=== PATIENT | male | born 1955 | race Caucasian/White ===

== ENCOUNTER 2017-03-20 12:48 | Inpatient (IN) | payer BC ==
[~2017-03-20] VITALS: Ht 177.8 cm; Wt 126.3 kg
[2017-03-20] MEDS ORDERED: WARF2TAB PO (13:24)
[2017-03-20] MEDS ORDERED: OMEP20TA40 PO (13:24)
[2017-03-20] MEDS ORDERED: GLYB5TAB3 PO (13:24)
[2017-03-20] MEDS ORDERED: WARF5TAB90 PO (13:24)
[2017-03-20] MEDS ORDERED: LOSA1TAB38 PO (13:24)
[2017-03-20] MEDS ORDERED: FRS/40 PO (13:24)
[2017-03-20] MEDS ORDERED: CLIN300C2 PO (13:24)
[2017-03-20] MEDS ORDERED: LISI-461 PO (13:24)
[2017-03-20] MEDS ORDERED: ATEN50TA8 PO (13:24)
[2017-03-20] MEDS ORDERED: NAPR1TAB9 PO (13:24)
--- NOTE | 2017-03-20 13:43 | EMERGENCY ROOM VISIT NOTE ---
History Report prepared by Martir: Ninoska Ordonez Under the Supervision of: Dr. Fabian Kelly M.D. First contact with patient: 13:33 Chief Complaint: OTHER COMPLAINT Stated Complaint: CELLULITIS, IMPAIRED RENAL FUNCTION History of Present Illness The patient is a 61 year old male who presents to the Emergency Room with complaints of abnormal lab work. He reports he was working out of state in [place] recently when he developed cellulitis in his left lower leg. He was placed on IV Clindamycin, which provided good relief. While the patient was at the ED in [place], his lab work showed "renal impairment". He states as far as he knew before the lab work, his kidney function had been normal. He denies any recent chest pain or increased shortness of breath. He admits to a history of "7 PE's in 2009" but denies any personal history of heart failure. He takes daily Coumadin for the history of clots. 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 The patient denies any recent fevers, chills, cough, congestion, nausea, vomiting or urinary symptoms. 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 A total of ten systems were reviewed and were otherwise negative. 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 (4) Pulmonary embolism Social History Smoking Status: Never Smoker Alcohol Use: occasionally Drug Use: none Marital Status: Housing Status: lives with family Occupation Status: employed Current/Historical Medications Scheduled Atenolol (Tenormin), 50 MG PO BID Clindamycin Hcl (Cleocin), 300 MG PO TID Furosemide (Lasix), 40 MG PO DAILY Glyburide-Metformin (Glucovance 5/500 Mg), 2 TAB PO BIDM Lisinopril (Zestril), 10 MG PO DAILY Losartan Potassium (Cozaar), 100 MG PO DAILY Omeprazole (Cvs Omeprazole), 20 MG PO DAILY Warfarin Sodium (Coumadin), 5 MG PO Q2D Warfarin Sodium (Coumadin), 2 MG PO Q2D Scheduled PRN Naproxen (Aleve), 220 MG PO DAILY PRN for LEG PAIN Allergies Coded Allergies: No Known Allergies (Unverified , 03/20/17) Physical Exam Vital Signs Date Time Temp Pulse Resp B/P (MAP) Pulse Ox O2 Delivery O2 Flow Rate FiO2 03/20/17 16:44 64 18 147/88 97 Room Air 03/20/17 14:28 66 18 124/54 96 Room Air 03/20/17 13:47 64 03/20/17 13:44 98 Room Air 03/20/17 13:07 37.0 65 20 182/84 96 Room Air Physical Exam GENERAL: Awake, alert, well-appearing, in no distress HENT: Normocephalic, atraumatic. Oropharynx unremarkable. Dry mucous membranes. EYES: Normal conjunctiva. Sclera non-icteric. NECK: Supple. No nuchal rigidity. FROM. No JVD. RESPIRATORY: Clear to auscultation. CARDIAC: Regular rate, normal rhythm. Extremities warm and well perfused. Pulses equal. ABDOMEN: Obese, soft, non-distended. No tenderness to palpation. No rebound or guarding. No masses. RECTAL: Deferred. MUSCULOSKELETAL: Chest examination reveals no tenderness. The back is symmetrical on inspection without obvious abnormality. There is no CVA tenderness to palpation. No joint edema. LOWER EXTREMITIES: Right lower extremity has 2+ pitting edema with erythema and warmth, half cm anterior distal ulceration, no crepitus, no areas of fluctuance or crepitus. Calves are equal size bilaterally and non-tender. 1+ edema to left lower extremity. No discoloration. NEURO: Normal sensorium. No sensory or motor deficits noted. SKIN: No rash or jaundice noted. Medical Decision & Procedures ER Provider Diagnostic Interpretation: Radiology results as stated below per my review and radiologist interpretation: CHEST ONE VIEW PORTABLE CLINICAL HISTORY: 61 years-old Male presenting with sob. TECHNIQUE: Portable upright AP view of the chest was obtained. COMPARISON: None. FINDINGS: Mild prominence of the cardiac silhouette, which may be due to portable AP technique. Lungs and pleural spaces clear. Osseous structures normal. Upper abdomen normal. IMPRESSION: 1. Possible cardiomegaly. No other evidence of acute cardiopulmonary disease. Electronically signed by: Orlando Mahan M.D. 03/20/2017 4:17 PM R TIBIA/FIBULA 2 VIEWS ROUTINE CLINICAL HISTORY: 61 years-old Male presenting with pain swelling - r/o osseous involvement. TECHNIQUE: Frontal and lateral views of the right lower leg were obtained. COMPARISON: None. FINDINGS: Knee joint and ankle mortise grossly congruent. No acute fracture or malalignment. Degenerative change noted at the knee and ankle. Chondrocalcinosis suggested at the knee joint given calcification in the lateral compartment. No gross evidence of periosteal reaction or osseous erosion. Diffuse subcutaneous infiltration and skin thickening. Atherosclerosis. IMPRESSION: No acute osseous injury of the right lower leg. Degenerative changes at the knee and ankle. Electronically signed by: Orlando Mahan M.D. 03/20/2017 4:16 PM Laboratory Results 03/20/17 13:50 Red Blood Count 4.10, Mean Corpuscular Volume 85.9, Mean Corpuscular Hemoglobin 28.8, Mean Corpuscular Hemoglobin Concent 33.5, Mean Platelet Volume 9.6, Neutrophils (%) (Auto) 64.8, Lymphocytes (%) (Auto) 25.2, Monocytes (%) (Auto) 6.9, Eosinophils (%) (Auto) 2.0, Basophils (%) (Auto) 0.9, Neutrophils # (Auto) 4.12, Lymphocytes # (Auto) 1.60, Monocytes # (Auto) 0.44, Eosinophils # (Auto) 0.13, Basophils # (Auto) 0.06 03/20/17 13:50 Test 03/20/17 13:30 03/20/17 13:50 03/20/17 13:55 Prothrombin Time 26.8 SECONDS (9.0-12.0) Prothromb Time International Ratio 2.4 (0.9-1.1) White Blood Count 6.36 K/uL (4.8-10.8) Red Blood Count 4.10 M/uL (4.7-6.1) Hemoglobin 11.8 g/dL (14.0-18.0) Hematocrit 35.2 % (42-52) Mean Corpuscular Volume 85.9 fL (80-100) Mean Corpuscular Hemoglobin 28.8 pg (25-34) Mean Corpuscular Hemoglobin Concent 33.5 g/dl (32-36) Platelet Count 296 K/uL (130-400) Mean Platelet Volume 9.6 fL (7.4-10.4) Neutrophils (%) (Auto) 64.8 % Lymphocytes (%) (Auto) 25.2 % Monocytes (%) (Auto) 6.9 % Eosinophils (%) (Auto) 2.0 % Basophils (%) (Auto) 0.9 % Neutrophils # (Auto) 4.12 K/uL (1.4-6.5) Lymphocytes # (Auto) 1.60 K/uL (1.2-3.4) Monocytes # (Auto) 0.44 K/uL (0.11-0.59) Eosinophils # (Auto) 0.13 K/uL (0-0.5) Basophils # (Auto) 0.06 K/uL (0-0.2) RDW Standard Deviation 40.2 fL (36.4-46.3) RDW Coefficient of Variation 12.8 % (11.5-14.5) Immature Granulocyte % (Auto) 0.2 % Immature Granulocyte # (Auto) 0.01 K/uL (0.00-0.02) Erythrocyte Sedimentation Rate 81 mm/hr (0-14) Anion Gap 8.0 mmol/L (3-11) Est Creatinine Clear Calc Drug Dose 42.6 ml/min Estimated GFR () 32.3 Estimated GFR (Non- 27.9 BUN/Creatinine Ratio 19.9 (10-20) Calcium Level 9.3 mg/dl (8.5-10.1) Troponin I < 0.015 ng/ml (0-0.045) C-Reactive Protein 3.02 mg/dl (0-0.29) Pro-B-Type Natriuretic Peptide 1618 pg/ml (0-900) Lactic Acid Level 1.0 mmol/L (0.4-2.0) Laboratory results reviewed by me Medications Administered Medications (Trade) Dose Ordered Sig/Brynn Route Start Time Stop Time Status Last Admin Dose Admin Vancomycin HCl 2500 mg/Sodium Chloride 550 ml @ 200 mls/hr ONE STAT IV 03/20/17 15:04 03/20/17 17:48 DC 10/8/17 15:39 200 MLS/HR Piperacillin Sod/ Tazobactam Sod (Zosyn Iv) 3.375 gm NOW STAT IV 03/20/17 15:04 03/20/17 15:06 DC 03/20/17 15:39 3.375 GM ED Course 1334: The patient was evaluated in room A3. A complete history and physical exam was performed. 1504: Zosyn 3.375 gm IV, Vancomycin HCl 1500 mg/NSS 550 ml @ 200 mls/hr IV. 1509: I discussed the patients case with Melina Pfeiffer. The patient will be further evaluated. Medical Decision I reviewed the patient's past medical history, medications, and the nursing notes as described above. The differential diagnoses considered include cellulitis, osteomyelitis, abscess and DVT. 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 WBC within normal limits. His creatinine is 2.5 in this patient who denies any history of kidney disease, and ESR is 80 with a CRP of 5. Given this patients risk of infection will made for IV antibiotics given his worsening on oral antibiotics. X-ray negative for osseous involvement. Case was discussed with Melina Pfeiffer,who will admit the patient for further management. Medication Reconcilliation Current Medication List: was personally reviewed by me Blood Pressure Screening Patient's blood pressure: Normal blood pressure Blood pressure disposition: Did not require urgent referral Consults Time Called: 1505 Consulting Physician: Melina Pfefifer Returned Call: [phone] I discussed the patients case with Melina Pfeiffer. The patient will be further evaluated. Impression Primary Impression: Cellulitis Scribe Attestation The scribe's documentation has been prepared under my direction and personally reviewed by me in its entirety. I confirm that the note above accurately reflects all work, treatment, procedures, and medical decision making performed by me. Departure Information Dispostion Being Evaluated By Hospitalist Referrals No Doctor, Assigned (PCP) Patient Instructions [facility]
[2017-03-20 14:14] LABS: BASO % 0.9 %; BASO ABS # 0.06 K/uL (0-0.2); COMPLETE YES; HEMATOCRIT 35.2 % (42-52); IG% 0.2 %; LYMPH % 25.2 %; MEAN CELL VOLUME 85.9 fL (80-100); MEAN CORPUSCULAR HEMOGLOBIN 28.8 pg (25-34); MEAN CORPUSCULAR HGB CONC 33.5 g/dl (32-36); MEAN PLATELET VOLUME 9.6 fL (7.4-10.4); MONO % 6.9 %; NEUT % 64.8 %; PLATELET COUNT 296 K/uL (130-400); WHITE BLOOD COUNT 6.36 K/uL (4.8-10.8)
[2017-03-20 14:29] LABS: BLOOD UREA NITROGEN 48 mg/dl (7-18); BUN/CREATININE RATIO 19.9 (10-20); CALCIUM 9.3 mg/dl (8.5-10.1); CARBON DIOXIDE 24 mmol/L (21-32); CHLORIDE 106 mmol/L (98-107); GLUCOSE 180 mg/dl (70-99); POTASSIUM 4.7 mmol/L (3.5-5.1); SODIUM 138 mmol/L (136-145)
[2017-03-20 14:34] LABS: C-REACTIVE PROTEIN 3.02 mg/dl (0-0.29)
[2017-03-20] MEDS ORDERED: PIPERACILLIN/TAZOBACTAM 3.375 GM/100ML D5W IV STA (15:04)
[2017-03-20] MEDS ORDERED: VANCOMYCIN INJ 2,500 MG in SODIUM CHLORIDE 0.9% 500ML 500 ML IV STA (15:04)
--- NOTE | 2017-03-20 16:17 | DIAGNOSTIC IMAGING REPORT ---
R TIBIA/FIBULA 2 VIEWS ROUTINE CLINICAL HISTORY: 61 years-old Male presenting with pain swelling - r/o osseous involvement. TECHNIQUE: Frontal and lateral views of the right lower leg were obtained. COMPARISON: None. FINDINGS: Knee joint and ankle mortise grossly congruent. No acute fracture or malalignment. Degenerative change noted at the knee and ankle. Chondrocalcinosis suggested at the knee joint given calcification in the lateral compartment. No gross evidence of periosteal reaction or osseous erosion. Diffuse subcutaneous infiltration and skin thickening. Atherosclerosis. IMPRESSION: No acute osseous injury of the right lower leg. Degenerative changes at the knee and ankle. Electronically signed by: Orlando Mahan M.D. 03/20/2017 4:16 PM Dictated Date/Time: 03/20/2017 4:14 PM
--- NOTE | 2017-03-20 16:18 | DIAGNOSTIC IMAGING REPORT ---
CHEST ONE VIEW PORTABLE CLINICAL HISTORY: 61 years-old Male presenting with sob. TECHNIQUE: Portable upright AP view of the chest was obtained. COMPARISON: None. FINDINGS: Mild prominence of the cardiac silhouette, which may be due to portable AP technique. Lungs and pleural spaces clear. Osseous structures normal. Upper abdomen normal. IMPRESSION: 1. Possible cardiomegaly. No other evidence of acute cardiopulmonary disease. Electronically signed by: Orlando Mahan M.D. 03/20/2017 4:17 PM Dictated Date/Time: 03/20/2017 4:16 PM
--- NOTE | 2017-03-20 18:49 | History and Physical ---
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 Pt said that he was in [place] about a week ago when he developed cellulitis in his right lower leg. He went to the ER in [place] and was given clindamycin 10 days course. Pt said that he is on clindamycin now. He said that the leg is silver lap machine tender but it slowly improved. Pt said that he had blood work done in the ED in [place], his lab work showed abnormal renal function with creatine 2.5. He said that he did not know that he had kidney disease. He doesn't remember his baseline creatine. He said that his last blood work by his pcp was probably more than 9 month to 12 months ago. He said that he remembers that his PCP once told him his kidney function was borderline. He admits to a history of "7 PE' s in 2009" but denies any personal history of heart failure. He takes daily Coumadin for the history of clots. 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 Past Medical/Surgical History Hx PE Guillain [place] DM type 2 Obesity Social History Smoking Status: Never Smoker Drug Use: none Marital Status: Occupational Status: employed Allergies Coded Allergies: No Known Allergies (Unverified , 03/20/17) Home Medications Scheduled Atenolol (Tenormin), 50 MG PO BID Clindamycin Hcl (Cleocin), 300 MG PO TID Furosemide (Lasix), 40 MG PO DAILY Glyburide-Metformin (Glucovance 5/500 Mg), 2 TAB PO BIDM Lisinopril (Zestril), 10 MG PO DAILY Losartan Potassium (Cozaar), 100 MG PO DAILY Omeprazole (Cvs Omeprazole), 20 MG PO DAILY Warfarin Sodium (Coumadin), 5 MG PO Q2D Warfarin Sodium (Coumadin), 2 MG PO Q2D Scheduled PRN Naproxen (Aleve), 220 MG PO DAILY PRN for LEG PAIN Review of Systems Constitutional: No fever, No chills Eyes: No worsening of vision ENT: No sore throat Respiratory: No cough, No sputum, No wheezing, No shortness of breath Cardiovascular: No chest pain, No orthopnea Abdomen: No pain, No nausea, No vomiting Musculoskeletal: No calf pain Genitourinary - Male: No hematuria, No dysuria Neurologic: No memory loss, No paralysis Psychiatric: No substance abuse Endocrine: No fatigue Hematologic / Lymphatic: No night sweats Integumentary: No rash, No itch Physical Exam Vital Signs Date Time Temp Pulse Resp B/P (MAP) Pulse Ox O2 Delivery O2 Flow Rate FiO2 03/20/17 18:14 66 18 148/76 97 03/20/17 17:47 63 03/20/17 16:44 64 18 147/88 97 Room Air 03/20/17 14:28 66 18 124/54 96 Room Air 03/20/17 13:47 64 03/20/17 13:44 98 Room Air 03/20/17 13:07 37.0 65 20 182/84 96 Room Air General Appearance: WD/WN, no apparent distress Head: normocephalic, atraumatic Eyes: normal inspection, PERRL, EOMI ENT: hearing grossly normal Neck: supple, no JVD Respiratory/Chest: lungs clear, normal breath sounds, no respiratory distress, no accessory muscle use Cardiovascular: regular rate, rhythm, no JVD Abdomen/GI: normal bowel sounds, non tender Back: no CVA tenderness Extremities/Musculoskelatal: no calf tenderness, + pertinent finding (Rillarissat LE erythema, swelling, warm and tenderness) Neurologic/Psych: no motor/sensory deficits, alert, oriented x 3 Skin: warm/dry, no rash Lymphatic: no adenopathy Diagnostics Laboratory Results Results Past 24 Hours Test 03/20/17 13:50 03/20/17 13:55 Range/Units White Blood Count 6.36 4.8-10.8 K/uL Red Blood Count 4.10 4.7-6.1 M/uL Hemoglobin 11.8 14.0-18.0 g/dL Hematocrit 35.2 42-52 % Mean Corpuscular Volume 85.9 80-100 fL Mean Corpuscular Hemoglobin 28.8 25-34 pg Mean Corpuscular Hemoglobin Concent 33.5 32-36 g/dl Platelet Count 296 130-400 K/uL Mean Platelet Volume 9.6 7.4-10.4 fL Neutrophils (%) (Auto) 64.8 % Lymphocytes (%) (Auto) 25.2 % Monocytes (%) (Auto) 6.9 % Eosinophils (%) (Auto) 2.0 % Basophils (%) (Auto) 0.9 % Neutrophils # (Auto) 4.12 1.4-6.5 K/uL Lymphocytes # (Auto) 1.60 1.2-3.4 K/uL Monocytes # (Auto) 0.44 0.11-0.59 K/uL Eosinophils # (Auto) 0.13 0-0.5 K/uL Basophils # (Auto) 0.06 0-0.2 K/uL RDW Standard Deviation 40.2 36.4-46.3 fL RDW Coefficient of Variation 12.8 11.5-14.5 % Immature Granulocyte % (Auto) 0.2 % Immature Granulocyte # (Auto) 0.01 0.00-0.02 K/uL Erythrocyte Sedimentation Rate 81 0-14 mm/hr Sodium Level 138 136-145 mmol/L Potassium Level 4.7 3.5-5.1 mmol/L Chloride Level 106 98-107 mmol/L Carbon Dioxide Level 24 21-32 mmol/L Anion Gap 8.0 3-11 mmol/L Blood Urea Nitrogen 48 7-18 mg/dl Creatinine 2.40 0.60-1.40 mg/dl Est Creatinine Clear Calc Drug Dose 42.6 ml/min Estimated GFR () 32.3 Estimated GFR (Non- 27.9 BUN/Creatinine Ratio 19.9 10-20 Random Glucose 180 70-99 mg/dl Calcium Level 9.3 8.5-10.1 mg/dl Troponin I < 0.015 0-0.045 ng/ml C-Reactive Protein 3.02 0-0.29 mg/dl Pro-B-Type Natriuretic Peptide 1618 0-900 pg/ml Lactic Acid Level 1.0 0.4-2.0 mmol/L Microbiology Results 03/20/17 Blood Culture, Received Pending 03/20/17 Blood Culture, Received Pending Diagnostic Radiology CHEST ONE VIEW PORTABLE CLINICAL HISTORY: 61 years-old Male presenting with sob. TECHNIQUE: Portable upright AP view of the chest was obtained. COMPARISON: None. FINDINGS: Mild prominence of the cardiac silhouette, which may be due to portable AP technique. Lungs and pleural spaces clear. Osseous structures normal. Upper abdomen normal. IMPRESSION: 1. Possible cardiomegaly. No other evidence of acute cardiopulmonary disease. Electronically signed by: Orlando Mahan M.D. 03/20/2017 4:17 PM Dictated Date/Time: 03/20/2017 4:16 PM R TIBIA/FIBULA 2 VIEWS ROUTINE CLINICAL HISTORY: 61 years-old Male presenting with pain swelling - r/o osseous involvement. TECHNIQUE: Frontal and lateral views of the right lower leg were obtained. COMPARISON: None. FINDINGS: Knee joint and ankle mortise grossly congruent. No acute fracture or malalignment. Degenerative change noted at the knee and ankle. Chondrocalcinosis suggested at the knee joint given calcification in the lateral compartment. No gross evidence of periosteal reaction or osseous erosion. Diffuse subcutaneous infiltration and skin thickening. Atherosclerosis. IMPRESSION: No acute osseous injury of the right lower leg. Degenerative changes at the knee and ankle. Electronically signed by: Orlando Mahan M.D. 03/20/2017 4:16 PM Dictated Date/Time: 03/20/2017 4:14 PM Impression Assessment and Plan Right LE Cellulitis Afebrile, No leukocytosis Elevated ESR Has been on PO clindamycin with slowly improvement Xray of the leg showed no acute osseous injury of the right lower leg. 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 Y/N: Yes Risk Level: High Given or contraindicated: Warfarin (Coumadin)
[2017-03-20] MEDS: SODIUM CHLORIDE 0.9% 1000ML 1,000 ML IV SCH (20:35)
[2017-03-20 20:50] VITALS: BP 175/75; PULSE 69
[2017-03-20] MEDS ORDERED: VANCOMYCIN INJ 1,000 MG in SODIUM CHLORIDE 0.9% 250ML 250 ML IV SCH (21:00)
[2017-03-20] MEDS ORDERED: GLUCAGON FOR INJ 1 MG VIAL SQ PRN (21:30)
[2017-03-20] MEDS ORDERED: DEXTROSE 50% 50 ML SYR IV PRN (21:30)
[2017-03-20] MEDS ORDERED: GLUCOSE 40% GEL 15 GM TUBE PO PRN (21:30)
[2017-03-20] MEDS ORDERED: GLUCOSE 10 TABS/TUBE PO PRN (21:30)
[2017-03-20 21:32] VITALS: BP 175/75; PULSE 69; TEMP 37; BMI 40.0
[2017-03-20 21:36] LABS: INR 2.4 (0.9-1.1); PROTHROMBIN TIME (PATIENT) 26.8 SECONDS (9.0-12.0)
[2017-03-20] MEDS ORDERED: PIPERACILL/TAZOBAC CONSULT ACTIVE PRN (21:45)
[2017-03-20] MEDS ORDERED: VANCOMYCIN CONSULT ACTIVE PRN (21:45)
[2017-03-20] MEDS: PIPERACILL/TAZOBAC IV 3.375 GM in DEXTROSE 5% 100ML 100 ML IV SCH (22:24)
[2017-03-20] MEDS: INSULIN ASPART 100 UNITS/ML 3 ML PEN SC SCH (22:52)
[2017-03-20] MEDS: INSULIN GLARGINE SOLOSTAR 100 UNITS/ML 3 ML PEN SC SCH (22:52)
[2017-03-21 00:12] VITALS: BP 171/84; PULSE 72; TEMP 37; O2SAT 94
[2017-03-21] MEDS ORDERED: HydrALAZINE HCL 20 MG/ML VIAL IV. PRN (05:30)
[2017-03-21] MEDS: PIPERACILL/TAZOBAC IV 3.375 GM in DEXTROSE 5% 100ML 100 ML IV SCH (05:39)
[2017-03-21] MEDS: SODIUM CHLORIDE 0.9% 1000ML 1,000 ML IV SCH ×2 (05:40→19:51)
[2017-03-21 07:14] LABS: HEMATOCRIT 33.2 % (42-52); MEAN CORPUSCULAR HGB CONC 33.7 g/dl (32-36); MEAN PLATELET VOLUME 9.7 fL (7.4-10.4); PLATELET COUNT 267 K/uL (130-400); RED BLOOD COUNT 3.86 M/uL (4.7-6.1); WHITE BLOOD COUNT 5.56 K/uL (4.8-10.8)
[2017-03-21 07:22] LABS: PROTHROMBIN TIME (PATIENT) 21.9 SECONDS (9.0-12.0)
[2017-03-21 07:25] VITALS: BP 163/84; PULSE 65; TEMP 36.8; O2SAT 95
[2017-03-21 07:41] LABS: BUN/CREATININE RATIO 18.6 (10-20); CALCIUM 9.2 mg/dl (8.5-10.1); CREATININE 2.3 mg/dl (0.60-1.40); POTASSIUM 4.7 mmol/L (3.5-5.1)
[2017-03-21] MEDS: PANTOprazole SOD 40 MG TAB PO SCH (08:14)
[2017-03-21] MEDS: INSULIN GLARGINE SOLOSTAR 100 UNITS/ML 3 ML PEN SC SCH ×3 (08:15→20:47)
[2017-03-21] MEDS: INSULIN ASPART 100 UNITS/ML 3 ML PEN SC SCH ×4 (08:16→20:44)
--- NOTE | 2017-03-21 09:52 | Pharmacy Progress Note ---
Pharmacy Abx Dose Short Note Date of Service Mar 21, 2017. Assessment & Plan Assessment * 61 year old male receiving VANCOMYCIN and ZOSYN IV for treatment of LLE cellulitis * Day # 2 of antimicrobial therapy * He remains afebrile, WBC is not elevated, vitals are stable (hypertension noted) * Renal fxn basically unchanged over last 24 hrs based solely upon Scr, it does not look like U.O. is being monitored * Blood Cxs and R Leg ulcer Cx are pending Plan Vancomycin * Was given 2500mg (~20mg/kg) loading dose x 1 yesterday @ 1539 * Maintenance dose: 2000mg (~15.8mg/kg) IV Q 24 hours * Goal trough level for cellulitis : 10 to 20 mcg/mL, however 15 to 20mcg/mL recommended if organism has DANIEL 1 or greater * Trough level ordered for: 03/23/17 * P'kinetic estimates: Vd 0.6L/kg (due to BMI > 35), half-life ~17 hours Zosyn * Pharmacist who received consult yesterday place patient on 3.375gm extended infusion Q 8 hours. Will increase the dose to 4.5gm extended infusion Q 8 hours due to BMI 40 and wt > 120kg Pharmacy will continue to follow and will adjust dose/frequency as necessary. Thank you.
[2017-03-21] MEDS ORDERED: VANCOMYCIN INJ 1,750 MG in SODIUM CHLORIDE 0.9% 500ML 500 ML IV SCH (11:00)
[2017-03-21] MEDS: VANCOMYCIN INJ 2,000 MG in SODIUM CHLORIDE 0.9% 500ML 500 ML IV SCH (11:34)
--- NOTE | 2017-03-21 12:08 | Clinical Documentation Query ---
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 In your clinical opinion is this patient being managed for: ( ) CKD stage 4 ( ) Not Agree ( ) Other explanation of clinical findings (Please Explain) ( ) Unable to determine (Please Define) ( ) Need to Discuss The medical record reflects the following clinical findings, treatment, and risk factors. Clinical Indicators: GABY, GFR 27.9 and 29.3, creatinine 2.4 Treatment: IV hydration, hold lasix, nephro consult, renal ultrasound Risk Factors: Obesity, GABY, HTN, DM Chronic Kidney Disease (CKD), stages 1-5. Documenting the stage of CKD will improve data integrity and will help clarify vague terms such as "renal insufficiency" or "chronic renal failure." The stages of CKD according to the [employer] are as follows: Stage I: GFR >90 Stage II: GFR 60-89 Stage III: GFR 30-59 Stage IV: GFR 15-29 Stage V: GFR <15 Please clarify and document your clinical opinion in the progress notes and discharge summary. Terms such as "probable", "suspected", "likely", "questionable", "possible", or "still to be ruled out" are acceptable. IF IN AGREEMENT, YOU MUST DOCUMENT ABOVE DIAGNOSTIC STATEMENT IN DAILY PROGRESS NOTES AND DISCHARGE SUMMARY. This document is not part of the patient's record. Thank You, Connie Yanez RN [phone]
--- NOTE | 2017-03-21 13:42 | Progress Note ---
Medicine Progress Note Date & Time of Visit: Mar 21, 2017 at 13:34. Subjective Pt was seen and examined Lying in bed with no distress Pt said that he feels fine Denies any chest pain, palpitation, dizziness and sob Objective Last 8 Hrs Date Time Temp Pulse Resp B/P (MAP) Pulse Ox O2 Delivery O2 Flow Rate FiO2 03/21/17 08:00 Room Air 03/21/17 07:25 36.8 65 16 163/84 (110) 95 Room Air Physical Exam: General- adult Head- atraumatic Eyes- PERRL, EOMI ENT- oropharynx clear Neck- supple, no JVD Lungs- clear to auscultation Heart- regular rhythm; no murmur Abdomen- normal bowel sounds, soft Extremities- +edema and erythema in R Leg Neuro- alert, oriented x 3; PERRL, EOMI Skin- warm & dry Laboratory Results: Last 24 Hours Test 03/20/17 13:50 03/20/17 13:55 03/20/17 20:34 03/21/17 06:40 White Blood Count 6.36 K/uL 5.56 K/uL Red Blood Count 4.10 M/uL 3.86 M/uL Hemoglobin 11.8 g/dL 11.2 g/dL Hematocrit 35.2 % 33.2 % Mean Corpuscular Volume 85.9 fL 86.0 fL Mean Corpuscular Hemoglobin 28.8 pg 29.0 pg Mean Corpuscular Hemoglobin Concent 33.5 g/dl 33.7 g/dl Platelet Count 296 K/uL 267 K/uL Mean Platelet Volume 9.6 fL 9.7 fL Neutrophils (%) (Auto) 64.8 % Lymphocytes (%) (Auto) 25.2 % Monocytes (%) (Auto) 6.9 % Eosinophils (%) (Auto) 2.0 % Basophils (%) (Auto) 0.9 % Neutrophils # (Auto) 4.12 K/uL Lymphocytes # (Auto) 1.60 K/uL Monocytes # (Auto) 0.44 K/uL Eosinophils # (Auto) 0.13 K/uL Basophils # (Auto) 0.06 K/uL RDW Standard Deviation 40.2 fL 40.1 fL RDW Coefficient of Variation 12.8 % 12.8 % Immature Granulocyte % (Auto) 0.2 % Immature Granulocyte # (Auto) 0.01 K/uL Erythrocyte Sedimentation Rate 81 mm/hr Sodium Level 138 mmol/L 140 mmol/L Potassium Level 4.7 mmol/L 4.7 mmol/L Chloride Level 106 mmol/L 108 mmol/L Carbon Dioxide Level 24 mmol/L 25 mmol/L Anion Gap 8.0 mmol/L 6.0 mmol/L Blood Urea Nitrogen 48 mg/dl 43 mg/dl Creatinine 2.40 mg/dl 2.30 mg/dl Est Creatinine Clear Calc Drug Dose 42.6 ml/min 44.4 ml/min Estimated GFR () 32.3 34.0 Estimated GFR (Non- 27.9 29.3 BUN/Creatinine Ratio 19.9 18.6 Random Glucose 180 mg/dl 210 mg/dl Calcium Level 9.3 mg/dl 9.2 mg/dl Troponin I < 0.015 ng/ml C-Reactive Protein 3.02 mg/dl Pro-B-Type Natriuretic Peptide 1618 pg/ml Lactic Acid Level 1.0 mmol/L Bedside Glucose 264 mg/dl Prothrombin Time 21.9 SECONDS Prothromb Time International Ratio 2.0 Estimated Average Glucose 209 mg/dl Hemoglobin A1c 8.9 % Test 03/21/17 07:32 03/21/17 11:40 Bedside Glucose 231 mg/dl 253 mg/dl Date/Time Source Procedure Growth Status 03/20/17 13:55 Blood Blood Culture Pending Received 03/20/17 13:50 Blood Blood Culture Pending Received 03/20/17 22:30 Ulcer Leg Right Lower Gram Stain - Final Resulted 03/20/17 22:30 Ulcer Leg Right Lower Wound Culture - Preliminary NO GROWTH TO DATE. Resulted Assessment & Plan Right LE Cellulitis Afebrile, No leukocytosis Elevated ESR Has been on PO clindamycin with slowly improvement Xray of the leg showed no acute osseous injury of the right lower leg. 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 will try to minimize his risk for hypoglycemia on insulin sliding scale pharmacy consulted for glycemic management HTN Hold furosemide/Losartan and lisinopril consider to start on amlodipine Will add hydralazine prn continue monitor BP Obesity Counseling on wt loss DVT px on coumadin INR 2 CODE STATUS Full code Consultants: Nephrology Current Inpatient Medications: Current Inpatient Medications Medications (Trade) Dose Ordered Sig/Brynn Route Start Time Stop Time Status Last Admin Dose Admin Atenolol (Tenormin Tab) 50 mg BID PO 03/20/17 21:00 04/19/17 20:59 03/21/17 08:14 50 MG Warfarin Sodium (Coumadin Tab) 2 mg Q2D@1600 PO 03/22/17 16:00 04/21/17 15:59 Warfarin Sodium (Coumadin Tab) 5 mg Q2D@1600 PO 03/21/17 16:00 04/20/17 15:59 Pantoprazole Sodium (Protonix Tab) 40 mg DAILY PO 03/21/17 09:00 04/20/17 08:59 03/21/17 08:14 40 MG Sodium Chloride 1,000 ml @ 75 mls/hr [id number] IV 03/20/17 17:00 04/19/17 16:59 03/21/17 05:40 75 MLS/HR Insulin Glargine (Lantus Solostar Pen) 10 units Q12 SC 03/20/17 21:43 04/19/17 21:42 03/21/17 08:15 10 UNITS Insulin Aspart (novoLOG ASPART) SLIDING SCALE If C... ACHS SC 03/20/17 21:44 04/19/17 21:43 03/21/17 12:11 6 UNITS Glucose (Glucose 40% Gel) 15-30 GRAMS 15 GRAMS... UD PRN PO 03/20/17 21:30 04/19/17 21:29 Glucose (Glucose Chew Tab) 4-8 Tablets 4 Tabl... UD PRN PO 03/20/17 21:30 04/19/17 21:29 Dextrose (Dextrose 50% 50ML Syringe) 25-50ML OF 50% DW IV FOR... UD PRN IV 03/20/17 21:30 04/19/17 21:29 Glucagon (Glucagon Inj) 1 mg UD PRN SQ 03/20/17 21:30 04/19/17 21:29 Piperacillin Sod/ Tazobactam Sod (Consult) 1 ea UD PRN N/A 03/20/17 21:45 04/19/17 21:44 Vancomycin HCl (Consult) 1 ea UD PRN N/A 03/20/17 21:45 04/19/17 21:44 Hydralazine HCl (HydrALAZINE INJ) 10 mg Q6H PRN IV. 03/21/17 05:30 04/20/17 05:29 Vancomycin HCl 2000 mg/Sodium Chloride 540 ml @ 200 mls/hr Q24H IV 03/21/17 11:00 03/31/17 10:59 03/21/17 11:34 200 MLS/HR Piperacillin Sod/ Tazobactam Sod 4.5 gm/Dextrose 120 ml @ 30 mls/hr Q8H IV 03/21/17 14:00 03/30/17 21:59
[2017-03-21] MEDS: PIPERACILL/TAZOBAC IV 4.5 GM in DEXTROSE 5% 100ML IV SCH ×2 (13:54→22:20)
[2017-03-21] MEDS ORDERED: PHARMACY GLYCEMIC MGMT CONSULT SCH (14:11)
--- NOTE | 2017-03-21 14:36 | Pharmacy Progress Note ---
Glycemic Control Intl Consult Date of Service Mar 21, 2017. Scope Glycemic Pharmacist consulted by Dr Tatum on 03/21/17 for glycemic control and to write orders per [facility] inpatient glycemic control protocol Objective Weight (Kilograms): 126.300 Accuchecks BSG (last 24hrs): Test 03/20/17 20:34 03/21/17 06:40 03/21/17 07:32 03/21/17 11:40 Bedside Glucose 264 mg/dl (70-99) 231 mg/dl (70-99) 253 mg/dl (70-99) Random Glucose 210 mg/dl (70-99) Laboratory Data (last 24hrs) Test 03/21/17 06:40 Anion Gap 6.0 mmol/L BUN/Creatinine Ratio 18.6 Blood Urea Nitrogen 43 mg/dl Creatinine 2.30 mg/dl Hemoglobin A1c 8.9 % Potassium Level 4.7 mmol/L Sodium Level 140 mmol/L White Blood Count 5.56 K/uL HbA1c Test 03/21/17 06:40 Hemoglobin A1c 8.9 % (4.5-5.6) H Recent Pertinent Medications Outpatient Anti-diabetic Regimen: * Glyburide/metformin 5/500m tabs PO BIDM The patient is currently receiving: * Basal insulin: Lantus 10 units every 12 hours * Correctional Insulin: Novolog Correction per scale ACHS Goal Range: Low 140 mg/dL - High 180 mg/dL Correction Factor: 35 mg/dL/unit * Prandial insulin: Per carb ratio of 1 unit per 12 grams CHO consumed * Oral Agents: On hold for admission Risk Factors for Insulin Resistance: * Infection * Diet Assessment & Plan ASSESSMENT: * 61yo T2DM male with poorly controlled diabetes as an outpatient per recent A1c 8.9% * Goal A1c is < 7% based on age and co-morbidities * Pt is maintained on oral antidiabetic agents as an outpatient * Oral agents are not recommended for inpatient use d/t drug interactions, changing PO intake, and difficulty titrating for acute hyper/hypoglycemia. ADA recommends re-initiating outpatient oral agents 1-2 days prior to discharge if/ when appropriate if they were held on admission. * Oral agents held for admission pt pt initiated on conservative SQ basal bolus insulin regimen which is the recommended regimen for inpatient glycemic control. * BSGs 264, 231, 253 since admission * Both fasting and post-prandial BSGs are elevated. * Will increase to moderate stress (level 2) weight based insulin dosing and continue to titrate based on BSG trends. PLAN FOR INPATIENT GLYCEMIC CONTROL: * Oral agents * Continue to hold hold outpatient oral diabetes medications for admission * Basal insulin: increase * Lantus 20 units SQ BID - first dose NOW * Bolus insulin * NovoLog per scale ACHS or Q6hrs while NPO. Additional checks/coverage at 0000 & 0400 for sustained hyperglycemia. * Goal Range: Low 110 mg/dL - High 150 mg/dL (slightly higher goal range for elevated A1c) * Correction Factor: 20 mg/dL/unit * Nutritional / Prandial insulin per carb ratio of 1 unit per 6 grams CHO consumed * Please note that the plan above was derived based on current level of insulin resistance and hospital stress. These recommendations are appropriate for inpatient admission only. Plan of care upon discharge will need to be reassessed to avoid potential outpatient hypo/hyperglycemia. Thank you.
[2017-03-21 15:21] VITALS: Ht 177.8 cm; Wt 126.3 kg
[2017-03-21 15:45] VITALS: BP 181/87; PULSE 64; TEMP 36.8; O2SAT 97
[2017-03-21 16:00] VITALS: O2SAT 97
[2017-03-21] MEDS: WARFARIN SOD 5 MG TAB PO SCH (16:30)
[2017-03-21 17:36] VITALS: BP 148/79; PULSE 66
--- NOTE | 2017-03-21 21:19 | Nephrology Consultation ---
Nephrology Consultation Date of Consultation: Mar 21, 2017. Attending Physician: Dr Tatum Requesting Physician: Dr Tatum Reason for Consultation: renal insufficiency History of Present Illness 61 year old male admitted yesterday for mgt of RLE cellulitis and noted to have creatinine 2.4. Baseline creatinine unknown; repeat creatinine today 2.3. Other electrolytes mostly wnl since admission. PMH includes DM, HTN, obesity, hx of Guillain Cameron and PE on coumadin. Of note he was prior to admission on metformin, as well as both lisinopril and losartan. 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 He was seen in [place] about a week ago for RLE cellulitis and given antibiotics. He had used several doses of naproxen prior to presenting to hospital in [place]. Per pt they wanted to admit him but he refused, wishing to be closer to [place] where he lives. he tells me however he has not used naproxen sinc His ESR is 81 ; blood cultures are pending; no concerning findings for osteomyelitis so far. He is on IV vancomycin and zosyn. ELENO/ARB, lasix, nsaids, metformin all on hold since admission. Had been off work for November/December this year to evaluate exertional dyspnea which came on since early 2016; states breathing since admission has been stable. Does note that during this time off he gained 45 lb , attrib to less activity he states. Edema, redness, pain improving on RLE since admission. 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 at [facility] -hx of PE on coumadin -GERD -recent RLE cellulitis, currently on 10 day course of clindamycin -2012 R hip replacement -2014 lumbar surgery -2014 L hip replacement Family History no FH of CKD/ESRD; strong FH of cardiac dz and dm Social History Smoking Status: Never Smoker Alcohol Use: occasionally Drug Use: none Marital Status: Housing Status: lives with family Occupation Status: employed Allergies Coded Allergies: No Known Allergies (Unverified , 03/20/17) Medications Current Inpatient Medications Medications (Trade) Dose Ordered Sig/Brynn Route Start Time Stop Time Status Last Admin Dose Admin Atenolol (Tenormin Tab) 50 mg BID PO 03/20/17 21:00 04/19/17 20:59 03/21/17 08:14 50 MG Warfarin Sodium (Coumadin Tab) 2 mg Q2D@1600 PO 03/22/17 16:00 04/21/17 15:59 Warfarin Sodium (Coumadin Tab) 5 mg Q2D@1600 PO 03/21/17 16:00 04/20/17 15:59 03/21/17 16:30 5 MG Pantoprazole Sodium (Protonix Tab) 40 mg DAILY PO 03/21/17 09:00 04/20/17 08:59 03/21/17 08:14 40 MG Sodium Chloride 1,000 ml @ 75 mls/hr [id number] IV 03/20/17 17:00 04/19/17 16:59 03/21/17 05:40 75 MLS/HR Insulin Aspart (novoLOG ASPART) SLIDING SCALE If C... ACHS SC 03/20/17 21:44 04/19/17 21:43 03/21/17 17:20 8 UNITS Glucose (Glucose 40% Gel) 15-30 GRAMS 15 GRAMS... UD PRN PO 03/20/17 21:30 04/19/17 21:29 Glucose (Glucose Chew Tab) 4-8 Tablets 4 Tabl... UD PRN PO 03/20/17 21:30 04/19/17 21:29 Dextrose (Dextrose 50% 50ML Syringe) 25-50ML OF 50% DW IV FOR... UD PRN IV 03/20/17 21:30 04/19/17 21:29 Glucagon (Glucagon Inj) 1 mg UD PRN SQ 03/20/17 21:30 04/19/17 21:29 Piperacillin Sod/ Tazobactam Sod (Consult) 1 ea UD PRN N/A 03/20/17 21:45 04/19/17 21:44 Vancomycin HCl (Consult) 1 ea UD PRN N/A 03/20/17 21:45 04/19/17 21:44 Hydralazine HCl (HydrALAZINE INJ) 10 mg Q6H PRN IV. 03/21/17 05:30 04/20/17 05:29 Vancomycin HCl 2000 mg/Sodium Chloride 540 ml @ 200 mls/hr Q24H IV 03/21/17 11:00 03/31/17 10:59 10/9/17 11:34 200 MLS/HR Piperacillin Sod/ Tazobactam Sod 4.5 gm/Dextrose 120 ml @ 30 mls/hr Q8H IV 03/21/17 14:00 03/30/17 21:59 03/21/17 13:54 30 MLS/HR Miscellaneous Information (Consult Glycemic Management Pharmacy) 1 ea UD N/A 03/21/17 14:11 04/20/17 14:10 Insulin Glargine (Lantus Solostar Pen) 20 units BID SC 03/21/17 14:45 04/20/17 14:44 03/21/17 15:01 20 UNITS Insulin Aspart (novoLOG ASPART) SLIDING SCALE If C... TODAY@0000,0400 [place] 03/22/17 00:00 03/22/17 04:01 Home Meds and Scripts Medications Dose Route/Sig Max Daily Dose Days Date Category Dose Instructions Cleocin (Clindamycin Hcl) 300 Mg Cap 300 Mg PO TID 03/20/17 Reported Tenormin (Atenolol) 50 Mg Tab 50 Mg PO BID 03/20/17 Reported Coumadin (Warfarin Sodium) 2 Mg Tab 2 Mg PO Q2D 03/20/17 Reported ROTATES EVERY OTHER DAY WITH 5MG DOSE. 5MG ONE DAY, 2.5 MG NEXT DAY ETC Coumadin (Warfarin Sodium) 5 Mg Tab 5 Mg PO Q2D 03/20/17 Reported ROTATES EVERY OTHER DAY WITH HALF TAB (2.5MG). 5MG ONE DAY , 2.5MG NEXT DAY, ETC Aleve (Naproxen) 220 Mg Tab 220 Mg PO DAILY PRN 03/20/17 Reported Zestril (Lisinopril) 10 Mg Tab 10 Mg PO DAILY 03/20/17 Reported Cozaar (Losartan Potassium) 100 Mg Tab 100 Mg PO DAILY 03/20/17 Reported Lasix (Furosemide) 40 Mg Tab 40 Mg PO DAILY 03/20/[address] [facility] Omeprazole (Omeprazole) 20 Mg Tab 20 Mg PO DAILY 03/20/17 Reported Glucovance 5/500 Mg (Glyburide-Metformin) 1 Tab Tab 2 Tab PO BIDM 03/20/17 Reported Review of Systems Constitutional: + weakness, + fatigue, No fever Eyes: No worsening of vision ENT: No hearing loss Respiratory: + see HPI, + shortness of breath Cardiac: + edema, No chest pain, No palpitations Abdomen: No pain, No nausea, No vomiting, No diarrhea, No constipation Musculoskeletal: + see HPI, + muscle pain, + swelling, + calf pain Male : No dysuria, No urinary frequency, No hematuria Neuro: No memory loss, No weakness, No balance problems Psych: No depression symptoms, No anxiety Heme: No abnormal bleeding/bruising Endo: + fatigue Skin: + rash, + new/changing skin lesions Physical Exam Date Time Temp Pulse Resp B/P (MAP) Pulse Ox O2 Delivery O2 Flow Rate FiO2 03/21/17 17:36 66 148/79 (102) 03/21/17 16:00 97 Room Air 03/21/17 15:45 36.8 64 18 181/87 (118) 97 Room Air 03/21/17 08:00 Room Air 03/21/17 07:25 36.8 65 16 163/84 (110) 95 Room Air 03/21/17 00:12 37.0 72 16 171/84 (113) 94 Room Air 03/20/17 23:40 Room Air 03/20/17 21:32 37.0 69 18 175/75 Room Air 03/20/17 20:50 69 175/75 (108) 24-Hour Column 03/22/17 07:59 Intake Total 1724 ml Output Total 1100 ml Balance 624 ml General Appearance: WD/WN, no apparent distress, + obese, + pertinent finding ( on RA, maneuvers readily for exam, not dyspneic w/ speech) Eyes: EOMI ENT: hearing grossly normal Neck: supple Respiratory/Chest: + decreased breath sounds Cardiovascular: regular rate, rhythm, + pertinent finding (edema trace LLE, 2+ RLE) Abdomen: normal bowel sounds, non tender, soft, no pulsatile mass (no petty) Extremities: + pedal edema (3+ RLE edema w/ faint redness, 4 x 2 cm scab healing ant linda R) Neurologic/Psych: alert, normal mood/affect, oriented x 3 Skin: no jaundice, warm/dry, no rash, + pertinent finding (see above for RLE description) Diagnostics Last 24 Hours Test 03/20/17 20:34 03/21/17 06:40 03/21/17 07:32 03/21/17 11:40 Bedside Glucose 264 mg/dl 231 mg/dl 253 mg/dl White Blood Count 5.56 K/uL Red Blood Count 3.86 M/uL Hemoglobin 11.2 g/dL Hematocrit 33.2 % Mean Corpuscular Volume 86.0 fL Mean Corpuscular Hemoglobin 29.0 pg Mean Corpuscular Hemoglobin Concent 33.7 g/dl RDW Standard Deviation 40.1 fL RDW Coefficient of Variation 12.8 % Platelet Count 267 K/uL Mean Platelet Volume 9.7 fL Prothrombin Time 21.9 SECONDS Prothromb Time International Ratio 2.0 Sodium Level 140 mmol/L Potassium Level 4.7 mmol/L Chloride Level 108 mmol/L Carbon Dioxide Level 25 mmol/L Anion Gap 6.0 mmol/L Blood Urea Nitrogen 43 mg/dl Creatinine 2.30 mg/dl Est Creatinine Clear Calc Drug Dose 44.4 ml/min Estimated GFR () 34.0 Estimated GFR (Non- 29.3 BUN/Creatinine Ratio 18.6 Random Glucose 210 mg/dl Estimated Average Glucose 209 mg/dl Hemoglobin A1c 8.9 % Calcium Level 9.2 mg/dl Hepatitis C Antibody Screen NEG Diagnostic Radiology: cxr no acute cp process tib/fib xr > no acute osseous process Assessment & Plan 61 y/o M w/ creatinine 2.3-2.4 since admission for RLE cellulitis in setting of dm, htn, obesity, unknown baseline creatinine. Renal insufficiency baseline unknown; renal function stable so far this admission -agree w/ plan to get outpt baseline; or barring this could get documents from [facility] where he [facility] -uacm and prot/creat ordered -cont to hold eleno, arb, metformin, nsaids, lasix -daily bmp while in house -monitor vanco levels very carefully > some risk for atn from sepsis and / or antibiotics HTN -will stop NS b/c he is eating/drinking well; this will only worsen bp -may need to change atenolol to metoprolol but will monitor for need for now off of NS Appreciate consult; will follow with you.
[2017-03-22] VITALS (8 sets, daily range): BP systolic 137–194; BP diastolic 63–83; PULSE 64–77; TEMP 36.7–36.9; O2SAT 95–96
[2017-03-22 01:16] LABS: URINE APPEARANCE CLEAR (CLEAR); URINE BILIRUBIN NEG (NEG); URINE COLOR YELLOW; URINE NITRITE NEG (NEG); URINE PH 6.5 (4.5-7.5); URINE SPECIFIC GRAVITY 1.007 (1.000-1.030); UROBILINOGEN NEG (NEG); ZZUR CULT IF INDIC CLEAN CATCH NO
[2017-03-22 01:19] LABS: MANUAL MICROSCOPIC REQUIRED? NO; REVIEW REQ? YES
[2017-03-22 01:41] LABS: URINE EPITHELIAL CELL AUTO 0-5 /lpf (0-5)
[2017-03-22] MEDS: INSULIN ASPART 100 UNITS/ML 3 ML PEN SC SCH ×6 (04:00→20:56)
[2017-03-22] MEDS: PIPERACILL/TAZOBAC IV 4.5 GM in DEXTROSE 5% 100ML IV SCH ×2 (05:31→13:36)
[2017-03-22 07:38] LABS: HEMATOCRIT 32.9 % (42-52); MEAN CORPUSCULAR HEMOGLOBIN 29.2 pg (25-34); MEAN CORPUSCULAR HGB CONC 34.3 g/dl (32-36); MEAN PLATELET VOLUME 8.9 fL (7.4-10.4); PLATELET COUNT 246 K/uL (130-400); RED BLOOD COUNT 3.87 M/uL (4.7-6.1); WHITE BLOOD COUNT 5.38 K/uL (4.8-10.8)
[2017-03-22 07:48] LABS: INR 1.6 (0.9-1.1); PROTHROMBIN TIME (PATIENT) 17.9 SECONDS (9.0-12.0)
[2017-03-22] MEDS: PANTOprazole SOD 40 MG TAB PO SCH (08:17)
[2017-03-22] MEDS: INSULIN GLARGINE SOLOSTAR 100 UNITS/ML 3 ML PEN SC SCH ×2 (08:20→20:59)
[2017-03-22 08:22] LABS: BUN/CREATININE RATIO 15.5 (10-20); CALCIUM 8.8 mg/dl (8.5-10.1); CREATININE 2.3 mg/dl (0.60-1.40); POTASSIUM 4.1 mmol/L (3.5-5.1)
--- NOTE | 2017-03-22 10:14 | Nephrology Progress Note ---
Nephrology Progress Note Date of Service: Mar 22, 2017. Subjective no sob, chest pain, vision change, focal numbness/weakness. worries leg more red and RLE has again been medial distal aspect tender Objective Date Time Temp Pulse Resp B/P (MAP) Pulse Ox O2 Delivery O2 Flow Rate FiO2 03/22/17 08:15 Room Air 03/22/17 07:12 36.9 77 18 179/83 (115) 96 03/22/17 06:45 76 175/79 (111) 03/22/17 05:42 70 194/72 (112) 03/22/17 00:30 Room Air 03/22/17 00:01 36.7 68 18 162/79 (106) 96 Room Air 03/21/17 17:36 66 148/79 (102) 03/21/17 16:00 97 Room Air 03/21/17 15:45 36.8 64 18 181/87 (118) 97 Room Air Physical Exam: General Appearance: WD/WN, no apparent distress, + obese, + pertinent finding ( on RA, maneuvers readily for exam, not dyspneic w/ speech) Eyes: EOMI ENT: hearing grossly normal Neck: supple Respiratory/Chest: + decreased breath sounds Cardiovascular: regular rate, rhythm, + pertinent finding (edema trace LLE, 2+ RLE) Abdomen: normal bowel sounds, non tender, soft, no pulsatile mass (no petty) Extremities: + pedal edema (2+ RLE edema w/ some (to me unchanged) redness, 4 x 2 cm scab healing ant linda R) Neurologic/Psych: alert, normal mood/affect, oriented x 3 Skin: no jaundice, warm/dry, no rash, + pertinent finding (see above for RLE description) Current Inpatient Medications Medications (Trade) Dose Ordered Sig/Brynn Route Start Time Stop Time Status Last Admin Dose Admin Atenolol (Tenormin Tab) 50 mg BID PO 03/20/17 21:00 04/19/17 20:59 03/22/17 08:16 50 MG Warfarin Sodium (Coumadin Tab) 2 mg Q2D@1600 PO 03/22/17 16:00 04/21/17 15:59 Warfarin Sodium (Coumadin Tab) 5 mg Q2D@1600 PO 03/21/17 16:00 04/20/17 15:59 03/21/17 16:30 5 MG Pantoprazole Sodium (Protonix Tab) 40 mg DAILY PO 03/21/17 09:00 04/20/17 08:59 03/22/17 08:17 40 MG Insulin Aspart (novoLOG ASPART) SLIDING SCALE If C... ACHS SC 03/20/17 21:44 04/19/17 21:43 03/22/17 08:19 7 UNITS Glucose (Glucose 40% Gel) 15-30 GRAMS 15 GRAMS... UD PRN PO 03/20/17 21:30 04/19/17 21:29 Glucose (Glucose Chew Tab) 4-8 Tablets 4 Tabl... UD PRN PO 03/20/17 21:30 04/19/17 21:29 Dextrose (Dextrose 50% 50ML Syringe) 25-50ML OF 50% DW IV FOR... UD PRN IV 03/20/17 21:30 04/19/17 21:29 Glucagon (Glucagon Inj) 1 mg UD PRN SQ 03/20/17 21:30 04/19/17 21:29 Piperacillin Sod/ Tazobactam Sod (Consult) 1 ea UD PRN N/A 03/20/17 21:45 04/19/17 21:44 Vancomycin HCl (Consult) 1 ea UD PRN N/A 03/20/17 21:45 04/19/17 21:44 Hydralazine HCl (HydrALAZINE INJ) 10 mg Q6H PRN IV. 03/21/17 05:30 04/20/17 05:29 03/22/17 05:41 10 MG Vancomycin HCl 2000 mg/Sodium Chloride 540 ml @ 200 mls/hr Q24H IV 03/21/17 11:00 03/31/17 10:59 03/21/17 11:34 200 MLS/HR Piperacillin Sod/ Tazobactam Sod 4.5 gm/Dextrose 120 ml @ 30 mls/hr Q8H IV 03/21/17 14:00 03/30/17 21:59 03/22/17 05:31 30 MLS/HR Miscellaneous Information (Consult Glycemic Management Pharmacy) 1 ea UD N/A 03/21/17 14:11 04/20/17 14:10 Insulin Glargine (Lantus Solostar Pen) 20 units BID SC 03/21/17 14:45 11/8/17 14:44 03/22/17 08:20 20 UNITS Last 24 Hours Test 03/21/17 11:40 03/21/17 20:22 03/22/17 00:34 03/22/17 00:45 Bedside Glucose 253 mg/dl 137 mg/dl 112 mg/dl Urine Color YELLOW Urine Appearance CLEAR Urine pH 6.5 Urine Specific [place] 1.007 Urine Protein 2+ Urine Glucose (UA) NEG Urine Ketones NEG Urine Occult Blood 1+ Urine Nitrite NEG Urine Bilirubin NEG Urine Urobilinogen NEG Urine Leukocyte Esterase NEG Urine WBC (Auto) 1-5 /hpf Urine RBC (Auto) 5-10 /hpf Urine Hyaline Casts (Auto) 0 /lpf Urine Epithelial Cells (Auto) 0-5 /lpf Urine Bacteria (Auto) NEG Urine Random Creatinine 21.0 mg/dl Urine Random Total Protein 84.0 mg/dl Urine Protein/Creatinine Ratio 4.0 Test 03/22/17 04:03 03/22/17 07:24 03/22/17 07:31 Bedside Glucose 102 mg/dl 155 mg/dl White Blood Count 5.38 K/uL Red Blood Count 3.87 M/uL Hemoglobin 11.3 g/dL Hematocrit 32.9 % Mean Corpuscular Volume 85.0 fL Mean Corpuscular Hemoglobin 29.2 pg Mean Corpuscular Hemoglobin Concent 34.3 g/dl RDW Standard Deviation 39.1 fL RDW Coefficient of Variation 12.7 % Platelet Count 246 K/uL Mean Platelet Volume 8.9 fL Prothrombin Time 17.9 SECONDS Prothromb Time International Ratio 1.6 Sodium Level 141 mmol/L Potassium Level 4.1 mmol/L Chloride Level 110 mmol/L Carbon Dioxide Level 24 mmol/L Anion Gap 7.0 mmol/L Blood Urea Nitrogen 36 mg/dl Creatinine 2.30 mg/dl Est Creatinine Clear Calc Drug Dose 44.4 ml/min Estimated GFR () 34.0 Estimated GFR (Non- 29.3 BUN/Creatinine Ratio 15.5 Random Glucose 154 mg/dl Calcium Level 8.8 mg/dl Assessment & Plan 61 y/o M w/ creatinine 2.3-2.4 since admission for RLE cellulitis in setting of dm, htn, obesity, unknown baseline creatinine. Renal insufficiency unknown chronicity baseline unknown; renal function stable so far this admission. he has 4 gm proteinuria and microhematuria on UA. No infection. -renal u/s ordered -agree w/ plan to get outpt baseline; or barring this could get documents from [facility] where he was recently seen -cont to hold ho, arb, metformin, nsaids, lasix -daily bmp while in house -will work on better bp control -monitor vanco levels very carefully > some risk for atn from sepsis and / or antibiotics HTN, goal sbp in 140-150s -will change atenolol to metoprolol tartrate 100 mg bid to start; will also start standing hydralazine and amlodipine -cont prn IV hydralazine -changed to low Na diet Appreciate consult; will follow with you.
[2017-03-22] MEDS ORDERED: AMLODIPINE BESYLATE 5 MG TAB PO ONE (10:15)
[2017-03-22] MEDS: VANCOMYCIN INJ 2,000 MG in SODIUM CHLORIDE 0.9% 500ML 500 ML IV SCH (10:49)
--- NOTE | 2017-03-22 11:16 | Pharmacy Progress Note ---
Glycemic Control Progress Note Date of Service Mar 22, 2017. Scope Glycemic Pharmacist consulted for glycemic control to write orders per [facility] ED inpatient glycemic control protocol. Objective Accuchecks BSG (last 24hrs): Test 03/21/17 11:40 03/21/17 20:22 03/22/17 00:34 03/22/17 04:03 Bedside Glucose 253 mg/dl (70-99) 137 mg/dl (70-99) 112 mg/dl (70-99) 102 mg/dl (70-99) Test 03/22/17 07:24 03/22/17 07:31 Bedside Glucose 155 mg/dl (70-99) Random Glucose 154 mg/dl (70-99) HbA1c: Test 03/21/17 06:40 Hemoglobin A1c 8.9 % (4.5-5.6) H Recent Pertinent Medications Outpatient Anti-diabetic Regimen: * Glyburide/metformin 5/500m tabs PO BIDM The patient is currently receiving: * Basal insulin: Lantus 20 units every 12 hours * Correctional Insulin: Novolog Correction per scale ACHS Goal Range: Low 110 mg/dL - High 150 mg/dL Correction Factor: 20 mg/dL/unit * Prandial insulin: Per carb ratio of 1 unit per 6 grams CHO consumed * Oral Agents: On hold for admission Risk Factors for Insulin Resistance: * Infection * Diet Outpatient Anti-Diabetic Meds Oral Agents Assessment & Plan ASSESSMENT: * 61yo T2DM male with poorly controlled diabetes as an outpatient per recent A1c 8.9% * Goal A1c is < 7% based on age and co-morbidities * Pt is maintained on oral antidiabetic agents (glucovance) as an outpatient. Additional agents will be needed at discharge to get A1c to goal. * Working with Refrigeration Service Inspector on discharge recommendations: Pt stated he had been on Januvia & it worked well but was taken off due to insurance coverage. He states he just hasn't been able to get good fit since then. 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 He reports SMBG 3x/d & usually 140 PPBS in am & higher lately. Recognizes A1c too high & fearful of problems from that. * BSGs much improved since increasing SQ basal bolus insulin regimen yesterday. BSGs over the last 24hrs 155, 102, 112, 137, 187 * Fasting BSG trending downwards and near goal range, patient received 30 units of basal insulin yesterday. Will continue similar dosing today * Post-prandial BSGs are trending upwards - will tighten Cf/CR PLAN FOR INPATIENT GLYCEMIC CONTROL: SQ basal bolus insulin regimen based on an estimated total daily dose of ~ 100 units/day. Continue to monitor and titrate insulin based on BSG trends. * Oral agents * Continue to hold hold outpatient oral diabetes medications for admission * Basal insulin: * Lantus 23 units SQ BID * Bolus insulin * NovoLog per scale ACHS or Q6hrs while NPO. * Goal Range: Low 110 mg/dL - High 150 mg/dL (slightly higher goal range for elevated A1c) * Correction Factor: 15 mg/dL/unit * Nutritional / Prandial insulin per carb ratio of 1 unit per 5 grams CHO consumed Recommendations for discharge: * Continue Glucovance 5/500mg 2 tabs PO BIDM * Additional agent needed at discharge * GLP-1: Recommend Trulicity (Dulaglutide) 0.75mg SQ weekly. This particular GLP-1 is dosed weekly and is one of the easiest to administer (prefilled pen for one time weekly use, no visible needle, no reconstitution needed, etc). * No dose adjustment is necessary with renal imapirment or ESRD * Pt is interested in GLP-1 and would qualify for financial assistance program through [employer]. There is a Trulicity savings card which lowers the copay to as little as $25 * Visit the trulicity [employer] website --> savings & tools --> get a new card. * Please note that the plan above was derived based on current level of insulin resistance and hospital stress. These recommendations are appropriate for inpatient admission only. Plan of care upon discharge will need to be reassessed to avoid potential outpatient hypo/hyperglycemia. Thank you.
[2017-03-22] MEDS ORDERED: WARFARIN SOD 2 MG TAB PO SCH (16:00)
--- NOTE | 2017-03-22 17:10 | Progress Note ---
Medicine Progress Note Date & Time of Visit: Mar 22, 2017 at 16:50. Subjective Pt was seen and examined Lying in bed with no distress Pt said that her leg erythema and swelling improve I spoke to his PCP Dr. Younger today. 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 Denies any chest pain, palpitation, dizziness and SOB Objective Last 8 Hrs Date Time Temp Pulse Resp B/P (MAP) Pulse Ox O2 Delivery O2 Flow Rate FiO2 03/22/17 16:15 Room Air 03/22/17 15:31 36.7 73 20 137/63 (87) 95 Room Air 03/22/17 13:34 167/76 (106) 03/22/17 11:01 162/78 (106) Physical Exam: General- adult Head- atraumatic Eyes- PERRL, EOMI ENT- oropharynx clear Neck- supple, no JVD Lungs- clear to auscultation Heart- regular rhythm; no murmur Abdomen- normal bowel sounds, soft Extremities- +edema and erythema in R Leg Neuro- alert, oriented x 3; PERRL, EOMI Skin- warm & dry Laboratory Results: Last 24 Hours Test 03/21/17 20:22 03/22/17 00:34 03/22/17 00:45 03/22/17 04:03 Bedside Glucose 137 mg/dl 112 mg/dl 102 mg/dl Urine Color YELLOW Urine Appearance CLEAR Urine pH 6.5 Urine Specific Loving 1.007 Urine Protein 2+ Urine Glucose (UA) NEG Urine Ketones NEG Urine Occult Blood 1+ Urine Nitrite NEG Urine Bilirubin NEG Urine Urobilinogen NEG Urine Leukocyte Esterase NEG Urine WBC (Auto) 1-5 /hpf Urine RBC (Auto) 5-10 /hpf Urine Hyaline Casts (Auto) 0 /lpf Urine Epithelial Cells (Auto) 0-5 /lpf Urine Bacteria (Auto) NEG Urine Random Creatinine 21.0 mg/dl Urine Random Total Protein 84.0 mg/dl Urine Protein/Creatinine Ratio 4.0 Test 03/22/17 07:24 03/22/17 07:31 03/22/17 11:13 03/22/17 16:10 Bedside Glucose 155 mg/dl 198 mg/dl 150 mg/dl White Blood Count 5.38 K/uL Red Blood Count 3.87 M/uL Hemoglobin 11.3 g/dL Hematocrit 32.9 % Mean Corpuscular Volume 85.0 fL Mean Corpuscular Hemoglobin 29.2 pg Mean Corpuscular Hemoglobin Concent 34.3 g/dl RDW Standard Deviation 39.1 fL RDW Coefficient of Variation 12.7 % Platelet Count 246 K/uL Mean Platelet Volume 8.9 fL Prothrombin Time 17.9 SECONDS Prothromb Time International Ratio 1.6 Sodium Level 141 mmol/L Potassium Level 4.1 mmol/L Chloride Level 110 mmol/L Carbon Dioxide Level 24 mmol/L Anion Gap 7.0 mmol/L Blood Urea Nitrogen 36 mg/dl Creatinine 2.30 mg/dl Est Creatinine Clear Calc Drug Dose 44.4 ml/min Estimated GFR () 34.0 Estimated GFR (Non- 29.3 BUN/Creatinine Ratio 15.5 Random Glucose 154 mg/dl Calcium Level 8.8 mg/dl Assessment & Plan Right LE Cellulitis Afebrile, No leukocytosis Elevated ESR Has been on PO clindamycin with slowly improvement Xray of the leg showed no acute osseous injury of the right lower leg. On vanco and zosyn IV Blood cx no growth Wound cx growth gram positive cocci Will D/C zosyn for now erythema and swelling improved No need to get doppler to r/o DVT because it will not change the management since pt is on Coumadin for lifetime Monitor WBC Acute Kidney injury Creatine on admission 2.4 Possible related to diuretic/ARB/ACEI Creatine in the ED @ [place] was 2.5 on (03/13/17) We don't have his baseline creatine since he follows with an outsider provider Continue IVF Hold furosemide, lasix and losartan nephro consulted Will call his PCP to check for his baseline creatine Continue monitor BMP 03/22 Creatine remains 2.3 today Call his PCP dr. 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 will try to minimize his risk for hypoglycemia on insulin sliding scale pharmacy consulted for glycemic management case discussed with pharmacy, recommended also GLP-1 Will try if his insurance will cover for trulicity or victoza Also pharmacist recommended to continue Glucovance 5/500mg 2 tabs PO BIDM Will need to follow with endocrinology HTN Hold furosemide/Losartan and lisinopril starting on amlodipine 5 mg and hydralazine 50 mg BID continue monitor BP Obesity Counseling on wt loss DVT px on coumadin INR 1.6 will start on heparin subq if INR not at goal by tomorrow CODE STATUS Full code Consultants: Nephrology Current Inpatient Medications: Current Inpatient Medications Medications (Trade) Dose Ordered Sig/Brynn Route Start Time Stop Time Status Last Admin Dose Admin Warfarin Sodium (Coumadin Tab) 2 mg Q2D@1600 PO 03/22/17 16:00 04/21/17 15:59 03/22/17 16:15 2 MG Warfarin Sodium (Coumadin Tab) 5 mg Q2D@1600 PO 03/21/17 16:00 04/20/17 15:59 03/21/17 16:30 5 MG Pantoprazole Sodium (Protonix Tab) 40 mg DAILY PO 03/21/17 09:00 04/20/17 08:59 03/22/17 08:17 40 MG Insulin Aspart (novoLOG ASPART) SLIDING SCALE If C... ACHS SC 03/20/17 21:44 04/19/17 21:43 03/22/17 12:08 8 UNITS Glucose (Glucose 40% Gel) 15-30 GRAMS 15 GRAMS... UD PRN PO 03/20/17 21:30 04/19/17 21:29 Glucose (Glucose Chew Tab) 4-8 Tablets 4 Tabl... UD PRN PO 03/20/17 21:30 04/19/17 21:29 Dextrose (Dextrose 50% 50ML Syringe) 25-50ML OF 50% DW IV FOR... UD PRN IV 03/20/17 21:30 04/19/17 21:29 Glucagon (Glucagon Inj) 1 mg UD PRN SQ 03/20/17 21:30 04/19/17 21:29 Piperacillin Sod/ Tazobactam Sod (Consult) 1 UD PRN N/A 03/20/17 21:45 04/19/17 21:44 Vancomycin HCl (Consult) 1 [facility] PRN N/A 03/20/17 21:45 04/19/17 21:44 Hydralazine HCl (HydrALAZINE INJ) 10 mg Q6H PRN IV. 03/21/17 05:30 04/20/17 05:29 03/22/17 05:41 10 MG Vancomycin HCl 2000 mg/Sodium Chloride 540 ml @ 200 mls/hr Q24H IV 03/21/17 11:00 03/31/17 10:59 03/22/17 10:49 200 MLS/HR Piperacillin Sod/ Tazobactam Sod 4.5 gm/Dextrose 120 ml @ 30 mls/hr Q8H IV 03/21/17 14:00 03/30/17 21:59 03/22/17 13:36 30 MLS/HR Miscellaneous Information (Consult Glycemic Management Pharmacy) 1 [facility] N/A 03/21/17 14:11 04/20/17 14:10 Metoprolol Tartrate (Lopressor Tab) 100 mg BID PO 03/22/17 21:00 04/21/17 20:59 Amlodipine Besylate (Norvasc Tab) 5 mg QAM PO 03/23/17 09:00 04/22/17 08:59 Hydralazine HCl (Apresoline Tab) 50 mg TID PO 03/22/17 14:00 04/21/17 13:59 03/22/17 13:39 50 MG Insulin Glargine (Lantus Solostar Pen) 23 units BID SC 03/22/17 21:00 04/21/17 20:59
[2017-03-22] MEDS: METOPROLOL TARTRATE 100 MG TAB PO SCH (19:56)
[2017-03-23] VITALS (7 sets, daily range): BP systolic 121–180; BP diastolic 66–84; PULSE 64–72; TEMP 36.8; O2SAT 96–97
[2017-03-23 05:50] LABS: HEMATOCRIT 32.7 % (42-52); MEAN CELL VOLUME 86.1 fL (80-100); MEAN CORPUSCULAR HEMOGLOBIN 29.2 pg (25-34); MEAN CORPUSCULAR HGB CONC 33.9 g/dl (32-36); MEAN PLATELET VOLUME 9.2 fL (7.4-10.4); PLATELET COUNT 277 K/uL (130-400); WHITE BLOOD COUNT 6.13 K/uL (4.8-10.8)
[2017-03-23 06:03] LABS: INR 1.5 (0.9-1.1); PROTHROMBIN TIME (PATIENT) 16.4 SECONDS (9.0-12.0)
[2017-03-23 06:28] LABS: BUN/CREATININE RATIO 14.3 (10-20); CALCIUM 8.7 mg/dl (8.5-10.1); CREATININE 2.5 mg/dl (0.60-1.40); POTASSIUM 4.3 mmol/L (3.5-5.1)
[2017-03-23] MEDS: METOPROLOL TARTRATE 100 MG TAB PO SCH ×2 (07:40→20:54)
[2017-03-23] MEDS: PANTOprazole SOD 40 MG TAB PO SCH (07:40)
[2017-03-23] MEDS: AMLODIPINE BESYLATE 5 MG TAB PO SCH (07:40)
[2017-03-23] MEDS: INSULIN GLARGINE SOLOSTAR 100 UNITS/ML 3 ML PEN SC SCH ×2 (08:32→20:56)
[2017-03-23] MEDS: INSULIN ASPART 100 UNITS/ML 3 ML PEN SC SCH ×4 (08:32→20:57)
--- NOTE | 2017-03-23 10:21 | Nephrology Progress Note ---
Nephrology Progress Note Date of Service: Mar 23, 2017. Subjective again no sob, chest pain, vision change, focal numbness/weakness. RLE today less red, tender Objective Date Time Temp Pulse Resp B/P (MAP) Pulse Ox O2 Delivery O2 Flow Rate FiO2 03/23/17 09:30 97 Room Air 03/23/17 08:15 Room Air 03/23/17 07:50 36.8 64 18 121/66 (84) 97 Room Air 03/23/17 00:42 36.8 72 18 145/77 (99) 96 Room Air 03/23/17 00:00 Room Air 03/22/17 19:54 64 162/81 (108) 03/22/17 16:15 Room Air 03/22/17 15:31 36.7 73 20 137/63 (87) 95 Room Air 03/22/17 13:34 167/76 (106) 03/22/17 11:01 162/78 (106) Physical Exam: General Appearance: WD/WN, no apparent distress, + obese, + pertinent finding ( on RA, maneuvers readily for exam, not dyspneic w/ speech) Eyes: EOMI ENT: hearing grossly normal Neck: supple Respiratory/Chest: + decreased breath sounds Cardiovascular: regular rate, rhythm, + pertinent finding (edema trace LLE, 2+ RLE) Abdomen: normal bowel sounds, non tender, soft, no pulsatile mass (no petty) Extremities: + pedal edema (2+ RLE edema w/ some (to me improved) redness, 4 x 2 cm scab healing ant linda R) Neurologic/Psych: alert, normal mood/affect, oriented x 3 Skin: no jaundice, warm/dry, no rash, + pertinent finding (see above for RLE description) Current Inpatient Medications Medications (Trade) Dose Ordered Sig/Brynn Route Start Time Stop Time Status Last Admin Dose Admin Warfarin Sodium (Coumadin Tab) 2 mg Q2D@1600 PO 03/22/17 16:00 04/21/17 15:59 03/22/17 16:15 2 MG Warfarin Sodium (Coumadin Tab) 5 mg Q2D@1600 PO 03/21/17 16:00 04/20/17 15:59 03/21/17 16:30 5 MG Pantoprazole Sodium (Protonix Tab) 40 mg DAILY PO 03/21/17 09:00 04/20/17 08:59 03/23/17 07:40 40 MG Insulin Aspart (novoLOG ASPART) SLIDING SCALE If C... ACHS SC 03/20/17 21:44 04/19/17 21:43 03/23/17 08:32 11 UNITS Glucose (Glucose 40% Gel) 15-30 GRAMS 15 GRAMS... UD PRN PO 03/20/17 21:30 04/19/17 21:29 Glucose (Glucose Chew Tab) 4-8 Tablets 4 Tabl... UD PRN PO 03/20/17 21:30 04/19/17 21:29 Dextrose (Dextrose 50% 50ML Syringe) 25-50ML OF 50% DW IV FOR... UD PRN IV 03/20/17 21:30 04/19/17 21:29 Glucagon (Glucagon Inj) 1 mg UD PRN SQ 03/20/17 21:30 04/19/17 21:29 Vancomycin HCl (Consult) 1 ea UD PRN N/A 03/20/17 21:45 04/19/17 21:44 Hydralazine HCl (HydrALAZINE INJ) 10 mg Q6H PRN IV. 03/21/17 05:30 04/20/17 05:29 03/22/17 05:41 10 MG Vancomycin HCl 2000 mg/Sodium Chloride 540 ml @ 200 mls/hr Q24H IV 03/21/17 11:00 03/31/17 10:59 03/22/17 10:49 200 MLS/HR Miscellaneous Information (Consult Glycemic Management Pharmacy) 1 ea UD N/A 03/21/17 14:11 04/20/17 14:10 Metoprolol Tartrate (Lopressor Tab) 100 mg BID PO 03/22/17 21:00 04/21/17 20:59 03/23/17 07:40 100 MG Amlodipine Besylate (Norvasc Tab) 5 mg QAM PO 03/23/17 09:00 04/22/17 08:59 03/23/17 07:40 5 MG Hydralazine HCl (Apresoline Tab) 50 mg TID PO 03/22/17 14:00 04/21/17 13:59 03/23/17 07:40 50 MG Insulin Glargine (Lantus Solostar Pen) 23 units BID SC 03/22/17 21:00 04/21/17 20:59 03/23/17 08:32 23 UNITS Heparin Sodium (Porcine) (Heparin Sq 5000 Unit/0.5ml) 5,000 unit Q8 SQ 03/23/17 14:00 04/22/17 13:59 UNV Last 24 Hours Test 03/22/17 11:13 03/22/17 16:10 03/22/17 20:29 03/23/17 05:27 Bedside Glucose 198 mg/dl 150 mg/dl 136 mg/dl White Blood Count 6.13 K/uL Red Blood Count 3.80 M/uL Hemoglobin 11.1 g/dL Hematocrit 32.7 % Mean Corpuscular Volume 86.1 fL Mean Corpuscular Hemoglobin 29.2 pg Mean Corpuscular Hemoglobin Concent 33.9 g/dl RDW Standard Deviation 41.2 fL RDW Coefficient of Variation 13.0 % Platelet Count 277 K/uL Mean Platelet Volume 9.2 fL Prothrombin Time 16.4 SECONDS Prothromb Time International Ratio 1.5 Sodium Level 141 mmol/L Potassium Level 4.3 mmol/L Chloride Level 111 mmol/L Carbon Dioxide Level 23 mmol/L Anion Gap 7.0 mmol/L Blood Urea Nitrogen 36 mg/dl Creatinine 2.50 mg/dl Est Creatinine Clear Calc Drug Dose 40.9 ml/min Estimated GFR () 30.7 Estimated GFR (Non- 26.5 BUN/Creatinine Ratio 14.3 Random Glucose 139 mg/dl Calcium Level 8.7 mg/dl Test 03/23/17 07:37 Bedside Glucose 165 mg/dl Assessment & Plan 61 y/o M w/ creatinine 2.3-2.4 since admission for RLE cellulitis in setting of dm, htn, obesity, unknown baseline creatinine. Renal insufficiency unknown chronicity baseline unknown; renal function stable so far this admission. he has 4 gm proteinuria and microhematuria on UA. No infection. 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
[2017-03-23] MEDS ORDERED: VANCOMYCIN TROUGH ONE (10:30)
[2017-03-23] MEDS: VANCOMYCIN INJ 2,000 MG in SODIUM CHLORIDE 0.9% 500ML 500 ML IV SCH (10:51)
--- NOTE | 2017-03-23 12:00 | Progress Note ---
Medicine Progress Note Date & Time of Visit: Mar 23, 2017 at 11:49. Subjective Pt was seen and examined Lying in bed with no distress Pt said that he feel fine his right leg looks much better denies any chest pain, palpitation, dizziness and sob Objective Last 8 Hrs Date Time Temp Pulse Resp B/P (MAP) Pulse Ox O2 Delivery O2 Flow Rate FiO2 03/23/17 09:30 97 Room Air 03/23/17 08:15 Room Air 03/23/17 07:50 36.8 64 18 121/66 (84) 97 Room Air Physical Exam: General- adult Head- atraumatic Eyes- PERRL, EOMI ENT- oropharynx clear Neck- supple, no JVD Lungs- clear to auscultation Heart- regular rhythm; no murmur Abdomen- normal bowel sounds, soft Extremities- +edema, tenderness (improve) Neuro- alert, oriented x 3; PERRL, EOMI Skin- warm & dry Laboratory Results: Last 24 Hours Test 03/22/17 16:10 03/22/17 20:29 03/23/17 05:27 03/23/17 07:37 Bedside Glucose 150 mg/dl 136 mg/dl 165 mg/dl White Blood Count 6.13 K/uL Red Blood Count 3.80 M/uL Hemoglobin 11.1 g/dL Hematocrit 32.7 % Mean Corpuscular Volume 86.1 fL Mean Corpuscular Hemoglobin 29.2 pg Mean Corpuscular Hemoglobin Concent 33.9 g/dl RDW Standard Deviation 41.2 fL RDW Coefficient of Variation 13.0 % Platelet Count 277 K/uL Mean Platelet Volume 9.2 fL Prothrombin Time 16.4 SECONDS Prothromb Time International Ratio 1.5 Sodium Level 141 mmol/L Potassium Level 4.3 mmol/L Chloride Level 111 mmol/L Carbon Dioxide Level 23 mmol/L Anion Gap 7.0 mmol/L Blood Urea Nitrogen 36 mg/dl Creatinine 2.50 mg/dl Est Creatinine Clear Calc Drug Dose 40.9 ml/min Estimated GFR () 30.7 Estimated GFR (Non- 26.5 BUN/Creatinine Ratio 14.3 Random Glucose 139 mg/dl Calcium Level 8.7 mg/dl Test 03/23/17 10:35 03/23/17 11:22 Vancomycin Level Trough 22.4 mcg/ml Bedside Glucose 161 mg/dl Assessment & Plan Right LE Cellulitis Afebrile, No leukocytosis Elevated ESR Has been on PO clindamycin with slowly improvement Xray of the leg showed no acute osseous injury of the right lower leg. On vanco and zosyn IV Blood cx no growth Wound cx growth gram positive cocci Will D/C zosyn for now erythema and swelling improved No need to get doppler to r/o DVT because it will not change the management since pt is on Coumadin for lifetime Monitor WBC 03/23 Erythema and swelling improved significantly Wound cx positive for gram negative staph on IV vanco will change to PO doxy will get doppler of RLE since continue to have pain in the leg and his INR 1.5 Acute Kidney injury Creatine on admission 2.4 Possible related to diuretic/ARB/ACEI Creatine in the ED @ [place] was 2.5 on (03/13/17) We don't have his baseline creatine since he follows with an outsider provider Continue IVF Hold furosemide, lasix and losartan nephro consulted Will call his PCP to check for his baseline creatine Continue monitor BMP 03/23 Creatine 2.5 today Call his PCP dr. 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 will try to minimize his risk for hypoglycemia on insulin sliding scale pharmacy consulted for glycemic management case discussed with pharmacy, recommended also GLP-1 Will try if his insurance will cover for trulicity or victoza Also pharmacist recommended to continue Glucovance 5/500mg 2 tabs PO BIDM Will need to follow with endocrinology BS controlled on lantus HTN Continue holding furosemide/Losartan and lisinopril starting on amlodipine 5 mg and hydralazine 50 mg BID BP fluctuates continue monitor BP Obesity Counseling on wt loss DVT px on coumadin INR 1.5 on heparin subq due to INR less than 2 CODE STATUS Full code Consultants: Nephrology Current Inpatient Medications: Current Inpatient Medications Medications (Trade) Dose Ordered Sig/Brynn Route Start Time Stop Time Status Last Admin Dose Admin Warfarin Sodium (Coumadin Tab) 2 mg Q2D@1600 PO 03/22/17 16:00 04/21/17 15:59 03/22/17 16:15 2 MG Warfarin Sodium (Coumadin Tab) 5 mg Q2D@1600 PO 03/21/17 16:00 04/20/17 15:59 03/21/17 16:30 5 MG Pantoprazole Sodium (Protonix Tab) 40 mg DAILY PO 03/21/17 09:00 04/20/17 08:59 03/23/17 07:40 40 MG Insulin Aspart (novoLOG ASPART) SLIDING SCALE If C... ACHS SC 03/20/17 21:44 04/19/17 21:43 03/23/17 08:32 11 UNITS Glucose (Glucose 40% Gel) 15-30 GRAMS 15 GRAMS... UD PRN PO 03/20/17 21:30 04/19/17 21:29 Glucose (Glucose Chew Tab) 4-8 Tablets 4 Tabl... UD PRN PO 03/20/17 21:30 04/19/17 21:29 Dextrose (Dextrose 50% 50ML Syringe) 25-50ML OF 50% DW IV FOR... UD PRN IV 03/20/17 21:30 04/19/17 21:29 Glucagon (Glucagon Inj) 1 mg UD PRN SQ 03/20/17 21:30 04/19/17 21:29 Vancomycin HCl (Consult) 1 ea UD PRN N/A 03/20/17 21:45 04/19/17 21:44 Hydralazine HCl (HydrALAZINE INJ) 10 mg Q6H PRN IV. 03/21/17 05:30 04/20/17 05:29 03/22/17 05:41 10 MG Vancomycin HCl 2000 mg/Sodium Chloride 540 ml @ 200 mls/hr Q24H IV 03/21/17 11:00 03/31/17 10:59 03/23/17 10:51 200 MLS/HR Miscellaneous Information (Consult Glycemic Management Pharmacy) 1 ea UD N/A 03/21/17 14:11 04/20/17 14:10 Metoprolol Tartrate (Lopressor Tab) 100 mg BID PO 03/22/17 21:00 04/21/17 20:59 03/23/17 07:40 100 MG Amlodipine Besylate (Norvasc Tab) 5 mg QAM PO 03/23/17 09:00 04/22/17 08:59 03/23/17 07:40 5 MG Hydralazine HCl (Apresoline Tab) 50 mg TID PO 03/22/17 14:00 04/21/17 13:59 03/23/17 07:40 50 MG Insulin Glargine (Lantus Solostar Pen) 23 units BID SC 03/22/17 21:00 04/21/17 20:59 03/23/17 08:32 23 UNITS Heparin Sodium (Porcine) (Heparin Sq 5000 Unit/0.5ml) 5,000 unit Q8 SQ 03/23/17 14:00 04/22/17 13:59
[2017-03-23] MEDS ORDERED: DOXYCYCLINE HYCLATE 100 MG CAP PO ONE (12:30)
--- NOTE | 2017-03-23 14:35 | DIAGNOSTIC IMAGING REPORT ---
R VENOUS DOPP LOWER EXT UNILAT CLINICAL HISTORY: 61 years-old Male presenting with right leg swelling/tender. TECHNIQUE: Real-time grayscale and color and spectral Doppler ultrasound imaging of the veins of the right lower extremity was performed. Compression and augmentation were also utilized. COMPARISON: None. FINDINGS: Right: Common femoral vein: Patent. Femoral vein: Patent. Greater saphenous vein: Patent. Popliteal vein: Patent. Calf veins: Patent. Other: None. IMPRESSION: No evidence of deep venous thrombosis. Electronically signed by: Orlando Mahan M.D. 03/23/2017 2:34 PM Dictated Date/Time: 03/23/2017 2:34 PM
--- NOTE | 2017-03-23 14:38 | DIAGNOSTIC IMAGING REPORT ---
(RENAL)RETROPERITON COMP CLINICAL HISTORY: 61 years-old Male presenting with renal failure. TECHNIQUE: Real-time grayscale and limited color Doppler ultrasound imaging of the kidneys and bladder was performed. COMPARISON: None. FINDINGS: Right kidney: Normal echogenicity. Right kidney measures 12.7 cm. No hydronephrosis. Few simple cysts, the largest at the lower pole measuring 2.2 cm. Left kidney: Normal echogenicity. Left kidney measures 12.9 cm. No hydronephrosis. Few cysts, the largest at the mid pole measuring 1.9 cm with a single thin septation (Bosniak 2). Bladder: The bladder is incompletely distended but mildly trabeculated. Bilateral ureteral jets present. Other: None. IMPRESSION: 1. Multiple renal cysts. No obstruction. 2. Suggestion of bladder wall thickening, which could relate to chronic outlet obstruction or cystitis. Correlate with urinalysis. Electronically signed by: Orlando Mahan M.D. 03/23/2017 2:36 PM Dictated Date/Time: 03/23/2017 2:34 PM
[2017-03-23] MEDS: HEPARIN SOD 5000 UNIT/0.5 ML CARP SQ SCH ×2 (14:40→20:57)
[2017-03-23] MEDS: WARFARIN SOD 5 MG TAB PO SCH (15:58)
[2017-03-23] MEDS: DOXYCYCLINE HYCLATE 100 MG CAP PO SCH (20:52)
[2017-03-24 00:10] VITALS: BP 163/91; PULSE 71; TEMP 36.6; O2SAT 96
[2017-03-24 03:04] VITALS: O2SAT 96
[2017-03-24] MEDS: HEPARIN SOD 5000 UNIT/0.5 ML CARP SQ SCH ×2 (05:40→14:01)
--- NOTE | 2017-03-24 06:59 | Nephrology Progress Note ---
Nephrology Progress Note Date of Service: Mar 24, 2017. Subjective 61 yo male with htn and diabetes with elevated creatinine which is not improving and presented with cellulitis. pt feels much better. still with erythema in the right lower extremity however the swelling is much improved. Objective Date Time Temp Pulse Resp B/P (MAP) Pulse Ox O2 Delivery O2 Flow Rate FiO2 03/24/17 03:04 96 Room Air 03/24/17 00:10 36.6 71 18 163/91 (115) 96 Room Air 03/23/17 20:41 36.8 70 20 180/84 (116) 97 Room Air 03/23/17 16:00 96 Room Air 03/23/17 15:17 36.8 69 16 96 Room Air 03/23/17 14:43 130/70 (90) 03/23/17 09:30 97 Room Air 03/23/17 08:15 Room Air 03/23/17 07:50 36.8 64 18 121/66 (84) 97 Room Air Physical Exam: General-aaox3 Eyes-no scleral icterus ENT-mmm Neck-supple Lungs-cta Heart-rrr Abdomen-bs+ s/nt/nd Extremities-+1 edema bilaterally with erythema of the right leg Neuro-nonfocal Current Inpatient Medications Medications (Trade) Dose Ordered Sig/Brynn Route Start Time Stop Time Status Last Admin Dose Admin Warfarin Sodium (Coumadin Tab) 2 mg Q2D@1600 PO 03/22/17 16:00 04/21/17 15:59 03/22/17 16:15 2 MG Warfarin Sodium (Coumadin Tab) 5 mg Q2D@1600 PO 03/21/17 16:00 04/20/17 15:59 03/23/17 15:58 5 MG Pantoprazole Sodium (Protonix Tab) 40 mg DAILY PO 03/21/17 09:00 04/20/17 08:59 03/23/17 07:40 40 MG Insulin Aspart (novoLOG ASPART) SLIDING SCALE If C... ACHS SC 03/20/17 21:44 04/19/17 21:43 03/23/17 20:57 1 UNITS Glucose (Glucose 40% Gel) 15-30 GRAMS 15 GRAMS... UD PRN PO 03/20/17 21:30 04/19/17 21:29 Glucose (Glucose Chew Tab) 4-8 Tablets 4 Tabl... UD PRN PO 03/20/17 21:30 04/19/17 21:29 Dextrose (Dextrose 50% 50ML Syringe) 25-50ML OF 50% DW IV FOR... UD PRN IV 03/20/17 21:30 04/19/17 21:29 Glucagon (Glucagon Inj) 1 mg UD PRN SQ 03/20/17 21:30 04/19/17 21:29 Hydralazine HCl (HydrALAZINE INJ) 10 mg Q6H PRN IV. 03/21/17 05:30 04/20/17 05:29 03/22/17 05:41 10 MG Miscellaneous Information (Consult Glycemic Management Pharmacy) 1 ea UD N/A 03/21/17 14:11 04/20/17 14:10 Metoprolol Tartrate (Lopressor Tab) 100 mg BID PO 03/22/17 21:00 04/21/17 20:59 03/23/17 20:54 100 MG Amlodipine Besylate (Norvasc Tab) 5 mg QAM PO 03/23/17 09:00 04/22/17 08:59 03/23/17 07:40 5 MG Hydralazine HCl (Apresoline Tab) 50 mg TID PO 03/22/17 14:00 04/21/17 13:59 03/23/17 20:53 50 MG Insulin Glargine (Lantus Solostar Pen) 23 units BID SC 03/22/17 21:00 04/21/17 20:59 03/23/17 20:56 23 UNITS Heparin Sodium (Porcine) (Heparin Sq 5000 Unit/0.5ml) 5,000 unit Q8 SQ 03/23/17 14:00 04/22/17 13:59 03/24/17 05:40 5,000 UNIT Doxycycline Hyclate (Vibramycin Cap) 100 mg BID PO 03/23/17 21:00 04/02/17 20:59 03/23/17 20:52 100 MG Last 24 Hours Test 03/23/17 07:37 03/23/17 10:35 03/23/17 11:22 03/23/17 16:21 Bedside Glucose 165 mg/dl 161 mg/dl 106 mg/dl Vancomycin Level Trough 22.4 mcg/ml Test 03/23/17 20:18 03/24/17 04:44 Bedside Glucose 162 mg/dl Assessment & Plan Elevated creatinine-pt appears to have ckd and creatinine may be at its baseline. of pt is on dialysis in [place] and followed by Dr. Castellano and Dr. Granger. he would like to establish with their group. Recommend having an appointment with them upon discharge to follow kidney function numbers. DM: do not recommend restarting metformin if possible. not an absolute contraindication and pt could restart it if he is aware of the increased risk. 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
[2017-03-24 07:16] VITALS: BP 192/77; PULSE 71; TEMP 36.5; O2SAT 97
[2017-03-24 07:41] LABS: INR 1.4 (0.9-1.1); PROTHROMBIN TIME (PATIENT) 15.4 SECONDS (9.0-12.0)
[2017-03-24 07:56] LABS: BUN/CREATININE RATIO 15.3 (10-20); CALCIUM 9.4 mg/dl (8.5-10.1); CREATININE 2.4 mg/dl (0.60-1.40); POTASSIUM 4.3 mmol/L (3.5-5.1)
[2017-03-24] MEDS: PANTOprazole SOD 40 MG TAB PO SCH (08:01)
[2017-03-24] MEDS: METOPROLOL TARTRATE 100 MG TAB PO SCH (08:01)
[2017-03-24] MEDS: AMLODIPINE BESYLATE 5 MG TAB PO SCH (08:01)
[2017-03-24] MEDS: DOXYCYCLINE HYCLATE 100 MG CAP PO SCH (08:01)
[2017-03-24] MEDS: INSULIN GLARGINE SOLOSTAR 100 UNITS/ML 3 ML PEN SC SCH (08:08)
[2017-03-24] MEDS: INSULIN ASPART 100 UNITS/ML 3 ML PEN SC SCH ×3 (08:08→17:19)
--- NOTE | 2017-03-24 10:27 | Pharmacy Progress Note ---
Glycemic: Assessment & Plan Date of Service Mar 24, 2017. Assessment & Plan The patient is currently receiving 70 units of insulin per day. BSGs ranging 106 - 187 mg/dl over the past 24hrs. * Basal insulin: Lantus 23 units every 12 hours * Correctional Insulin: Novolog Correction per scale ACHS Goal Range: Low 110 mg/dL - High 150 mg/dL Correction Factor: 15 mg/dL/unit * Prandial insulin: Per carb ratio of 1 unit per 5 grams CHO consumed ASSESSMENT/PLAN FOR INPATIENT GLYCEMIC CONTROL: * Fasting BSG continues to be elevated, Lantus should be reaching steady state on new dose * Will increase Lantus to 25 units BID - starting tonight as AM dose already given Pharmacy will continue to monitor patient daily and write orders per [facility] inpatient glycemic control protocol. Thanks. DISCHARGE RECOMMENDATIONS: * As long as renal function remains stable, Glucovance can be resumed on discharge * A1c is elevated and patient aware. It sounds like he has already been following up with his PCP regarding initiation of possibly a GLP-1 agent. 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 * Would recommend to continue f/u with outpatient provider to further improve A1c
[2017-03-24 13:57] VITALS: BP 182/86; PULSE 75
[2017-03-24 14:56] VITALS: BP 160/84; PULSE 70; TEMP 37.2; O2SAT 96
--- NOTE | 2017-03-24 15:42 | Progress Note ---
Medicine Progress Note Date & Time of Visit: Mar 24, 2017 at 15:23. Subjective Pt was seen and examined Lying in bed with no distress He said that he feels fine Continue to have tenderness in his right leg Right leg erythema and swelling improved significantly denies any chest pain, palpitation, dizziness and sob Objective Last 8 Hrs Date Time Temp Pulse Resp B/P (MAP) Pulse Ox O2 Delivery O2 Flow Rate FiO2 03/24/17 14:56 37.2 70 16 160/84 (109) 96 Room Air 03/24/17 13:57 75 182/86 (118) 03/24/17 08:15 Room Air Physical Exam: General- adult Head- atraumatic Eyes- PERRL, EOMI ENT- oropharynx clear Neck- supple, no JVD Lungs- clear to auscultation Heart- regular rhythm; no murmur Abdomen- normal bowel sounds, soft Extremities- +edema, tenderness (improve) Neuro- alert, oriented x 3; PERRL, EOMI Skin- warm & dry Laboratory Results: Last 24 Hours Test 03/23/17 16:21 03/23/17 20:18 03/24/17 07:03 03/24/17 07:42 Bedside Glucose 106 mg/dl 162 mg/dl 187 mg/dl Prothrombin Time 15.4 SECONDS Prothromb Time International Ratio 1.4 Sodium Level 139 mmol/L Potassium Level 4.3 mmol/L Chloride Level 109 mmol/L Carbon Dioxide Level 22 mmol/L Anion Gap 8.0 mmol/L Blood Urea Nitrogen 37 mg/dl Creatinine 2.40 mg/dl Est Creatinine Clear Calc Drug Dose 42.6 ml/min Estimated GFR () 32.3 Estimated GFR (Non- 27.9 BUN/Creatinine Ratio 15.3 Random Glucose 141 mg/dl Calcium Level 9.4 mg/dl Test 03/24/17 11:19 Bedside Glucose 166 mg/dl Assessment & Plan Right LE Cellulitis Afebrile, No leukocytosis Elevated ESR Has been on PO clindamycin with slowly improvement Xray of the leg showed no acute osseous injury of the right lower leg. On vanco and zosyn IV Blood cx no growth Wound cx growth gram positive cocci Will D/C zosyn for now erythema and swelling improved No need to get doppler to r/o DVT because it will not change the management since pt is on Coumadin for lifetime Monitor WBC 03/24 Erythema and swelling improved significantly Wound cx positive for gram negative staph Received IV vanco, then change to PO doxy Doppler of RLE negative for DVT Acute Kidney injury on CKD stage 3 Creatine on admission 2.4 Possible related to diuretic/ARB/ACEI Creatine in the ED @ [place] was 2.5 on (03/13/17) We don't have his baseline creatine since he follows with an outsider provider Continue IVF Hold furosemide, Lasix and losartan nephro consulted Will call his PCP to check for his baseline creatine Continue monitor BMP 03/24 Creatine 2.4 today Call his PCP dr. Younger on 03/22, His pcp said his creatine was 2.25 on 07/30 with GFR in the 30's baseline Avoid nephrotoxic agents Discussed with pt that he needs tight diabetic management, avoid nephrotoxic agents and well BP control to avoid to go to ESRD in the future Nephrology on board case discussed with Dr. Alves recommended to avoid restarting metformin on discharge Renal U/S showed Multiple renal cysts. No obstruction. Pt will call [facility] (Dr. 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 If restart (due to limiting option), will need to monitor his renal function called his pharmacy, his insurance will cover for Victoza with no co-pay. will start on victoza 0.6 mg subq daily, if tolerated on week 1, will increase to 1.2mg Major side effects discussed with pt about Victoza such as nausea/vomiting/ diarrhea, weight loss and hypoglycemia PCP may consider to add DPP4-inhibitor (like trajenta) in the future if his BS not control and insurance will cover it Will need to see an endocrinology Will discharge on glyburide and Victoza Monitor Blood sugar closely follow a healthy DM diet diabetic education was consulted HTN Continue holding furosemide/Losartan and lisinopril starting on amlodipine 5 mg and hydralazine 50 mg BID BP not controlled Case discussed with nephrology recommended to hold losartan, lisinopril for now Resume lasix, and continue norvasc and hydralazine continue monitor BP and titrate BP meds Lisinopril can resume if renal function continue to improve, will defer to PCP Obesity Counseling on wt loss Victoza will help with the weight loss DVT px on coumadin INR 1.4 on heparin subq due to INR less than 2 CODE STATUS Full code DISPOSITION Please call your primary care provider Dr. Younger to schedule a follow up appointment within 1 week It is very important to follow with nephrology (You will need to schedule an appointment with nephrology to manage your kidney) Starting on Victoza 0.6 mg subq daily for 1 week, if you tolerate it well with no side effects (such as nausea, vomiting and diarrhea and low blood sugar), on week 2 please increase it to 1.2 mg subq. Continue monitor blood sugar and bring your blood sugar log in your next appointment with Dr. Younger You will need to follow with an endocrinology Follow up a healthy diabetes diet and limiting concentrated sweet Counseling on weight loss Continue monitor blood pressure and bring blood pressure log at your next appointment with Dr. Younger Consultants: Nephrology Current Inpatient Medications: Current Inpatient Medications Medications (Trade) Dose Ordered Sig/Brynn Route Start Time Stop Time Status Last Admin Dose Admin Pantoprazole Sodium (Protonix Tab) 40 mg DAILY PO 03/21/17 09:00 04/20/17 08:59 03/24/17 08:01 40 MG Insulin Aspart (novoLOG ASPART) SLIDING SCALE If C... ACHS SC 03/20/17 21:44 04/19/17 21:43 03/24/17 11:54 11 UNITS Glucose (Glucose 40% Gel) 15-30 GRAMS 15 GRAMS... UD PRN PO 03/20/17 21:30 04/19/17 21:29 Glucose (Glucose Chew Tab) 4-8 Tablets 4 Tabl... UD PRN PO 03/20/17 21:30 04/19/17 21:29 Dextrose (Dextrose 50% 50ML Syringe) 25-50ML OF 50% DW IV FOR... UD PRN IV 03/20/17 21:30 04/19/17 21:29 Glucagon (Glucagon Inj) 1 mg UD PRN SQ 03/20/17 21:30 04/19/17 21:29 Hydralazine HCl (HydrALAZINE INJ) 10 mg Q6H PRN IV. 03/21/17 05:30 04/20/17 05:29 03/22/17 05:41 10 MG Miscellaneous Information (Consult Glycemic Management Pharmacy) 1 ea UD N/A 03/21/17 14:11 04/20/17 14:10 Metoprolol Tartrate (Lopressor Tab) 100 mg BID PO 03/22/17 21:00 04/21/17 20:59 03/24/17 08:01 100 MG Amlodipine Besylate (Norvasc Tab) 5 mg QAM PO 03/23/17 09:00 04/22/17 08:59 03/24/17 08:01 5 MG Hydralazine HCl (Apresoline Tab) 50 mg TID PO 03/22/17 14:00 04/21/17 13:59 03/24/17 14:00 50 MG Heparin Sodium (Porcine) (Heparin Sq 5000 Unit/0.5ml) 5,000 unit Q8 SQ 03/23/17 14:00 04/22/17 13:59 03/24/17 14:01 5,000 UNIT Doxycycline Hyclate (Vibramycin Cap) 100 mg BID PO 03/23/17 21:00 04/02/17 20:59 03/24/17 08:01 100 MG Warfarin Sodium (Coumadin Tab) 5 mg DAILY@1600 PO 03/24/17 16:00 04/20/17 15:59 Insulin Glargine (Lantus Solostar Pen) 25 units BID SC 03/24/17 21:00 04/23/17 20:59
[2017-03-24] MEDS ORDERED: WARFARIN SOD 5 MG TAB PO SCH (16:00)
[2017-03-24] MEDS ORDERED: GLY/5 PO (16:37)
[2017-03-24] MEDS ORDERED: APR50 PO (16:37)
[2017-03-24] MEDS ORDERED: LPR100 PO (16:37)
[2017-03-24] MEDS ORDERED: LIRA18IN PO (16:37)
[2017-03-24] MEDS ORDERED: NRV5 PO (16:37)
[2017-03-24] MEDS ORDERED: DXY100 PO (16:37)
--- NOTE | 2017-03-24 16:42 | Discharge Instructions ---
Discharge Instructions Date of Service Mar 24, 2017. Admission Reason for Admission: Acute Kidney Injury, Cellulitis Discharge Discharge Diagnosis / Problem: leg cellulitis, Acute kidney injury on chronic kidney disease, Diabetes Discharge Goals Goal(s): Decrease discomfort, Improve function, Improve disease control Activity Recommendations Activity Limitations: resume your previous activity (as tolerated) . Instructions / Follow-Up Instructions / Follow-Up Please call your primary care provider Dr. Younger to schedule a follow up appointment within 1 week It is very important to follow with nephrology (You will need to schedule an appointment with nephrology to manage your kidney) Starting on Victoza 0.6 mg subq daily for 1 week, if you tolerate it well with no side effects (such as nausea, vomiting and diarrhea and low blood sugar), on week 2 please increase it to 1.2 mg subq. Continue monitor blood sugar and bring your blood sugar log in your next appointment with Dr. Younger You will need to follow with an endocrinology for your diabetes Follow up a healthy diabetes diet and limiting concentrated sweet Counseling on weight loss Continue monitor blood pressure and bring blood pressure log at your next appointment with Dr. Younger Avoid medications that can damage your kidney Continue monitor your INR ( take coumadin 5mg tomorrow) Check BMP between 3 to 5 days to monitor your kidney function Current Hospital Diet Patient's current hospital diet: Diabetes Type 2 Diet, Low Sodium Diet (2gm Na) Discharge Diet Recommended Diet: Low Sodium Diet (2gm Na), Diabetes Type 2 Diet Pending Studies Studies pending at discharge: no Laboratory Results Hemoglobin A1c Test 03/21/17 06:40 Range/Units Estimated Average Glucose 209 mg/dl Hemoglobin A1c 8.9 H 4.5-5.6 % Medical Emergencies . Who to Call and When: Medical Emergencies: If at any time you feel your situation is an emergency, please call 911 immediately. . Non-Emergent Contact Non-Emergency issues call your: Primary Care Provider Call Non-Emergent contact if: you have any medication questions . . "Provider Documentation" section prepared by Janine Tatum. . VTE Core Measure Inpt VTE Proph given/why not?: Unfractionated heparin SQ, Warfarin (Coumadin)
[2017-03-24] MEDS ORDERED: LIRA18IN SQ (16:43)
[2017-03-24 17:23] VITALS: BP 160/84; PULSE 70; TEMP 37.2; O2SAT 96
[2017-03-24] MEDS ORDERED: INSULIN GLARGINE SOLOSTAR 100 UNITS/ML 3 ML PEN SC SCH (21:00)
--- NOTE | 2017-03-26 18:49 | Discharge Summary ---
Discharge Summary Date of Service Mar 26, 2017. Discharge Summary Admission Date: Mar 20, 2017 at 16:51 Discharge Date: Mar 24, 2017 Discharge Disposition: Home Principal Diagnosis: RLE Cellulitis Secondary Diagnoses/Problems: Acute kidney injury on chronic kidney disease stage 3 DMII HTN Obesity Hx PE Procedures: R VENOUS DOPP LOWER EXT UNILAT CLINICAL HISTORY: 61 years-old Male presenting with right leg swelling/tender. TECHNIQUE: Real-time grayscale and color and spectral Doppler ultrasound imaging of the veins of the right lower extremity was performed. Compression and augmentation were also utilized. COMPARISON: None. FINDINGS: Right: Common femoral vein: Patent. Femoral vein: Patent. Greater saphenous vein: Patent. Popliteal vein: Patent. Calf veins: Patent. Other: None. IMPRESSION: No evidence of deep venous thrombosis. Electronically signed by: Orlando Mahan M.D. 03/23/2017 2:34 PM Dictated Date/Time: 03/23/2017 2:34 PM (RENAL)RETROPERITON COMP CLINICAL HISTORY: 61 years-old Male presenting with renal failure. TECHNIQUE: Real-time grayscale and limited color Doppler ultrasound imaging of the kidneys and bladder was performed. COMPARISON: None. FINDINGS: Right kidney: Normal echogenicity. Right kidney measures 12.7 cm. No hydronephrosis. Few simple cysts, the largest at the lower pole measuring 2.2 cm. Left kidney: Normal echogenicity. Left kidney measures 12.9 cm. No hydronephrosis. Few cysts, the largest at the mid pole measuring 1.9 cm with a single thin septation (Bosniak 2). Bladder: The bladder is incompletely distended but mildly trabeculated. Bilateral ureteral jets present. Other: None. IMPRESSION: 1. Multiple renal cysts. No obstruction. 2. Suggestion of bladder wall thickening, which could relate to chronic outlet obstruction or cystitis. Correlate with urinalysis. Electronically signed by: Orlando Mahan M.D. 03/23/2017 2:36 PM Dictated Date/Time: 03/23/2017 2:34 PM CHEST ONE VIEW PORTABLE CLINICAL HISTORY: 61 years-old Male presenting with sob. TECHNIQUE: Portable upright AP view of the chest was obtained. COMPARISON: None. FINDINGS: Mild prominence of the cardiac silhouette, which may be due to portable AP technique. Lungs and pleural spaces clear. Osseous structures normal. Upper abdomen normal. IMPRESSION: 1. Possible cardiomegaly. No other evidence of acute cardiopulmonary disease. Electronically signed by: Orlando Mahan M.D. 03/20/2017 4:17 PM Dictated Date/Time: 03/20/2017 4:16 PM R TIBIA/FIBULA 2 VIEWS ROUTINE CLINICAL HISTORY: 61 years-old Male presenting with pain swelling - r/o osseous involvement. TECHNIQUE: Frontal and lateral views of the right lower leg were obtained. COMPARISON: None. FINDINGS: Knee joint and ankle mortise grossly congruent. No acute fracture or malalignment. Degenerative change noted at the knee and ankle. Chondrocalcinosis suggested at the knee joint given calcification in the lateral compartment. No gross evidence of periosteal reaction or osseous erosion. Diffuse subcutaneous infiltration and skin thickening. Atherosclerosis. IMPRESSION: No acute osseous injury of the right lower leg. Degenerative changes at the knee and ankle. Electronically signed by: Orlando Mahan M.D. 03/20/2017 4:16 PM Dictated Date/Time: 03/20/2017 4:14 PM Consultations: Nephrology Medication Reconciliation New Medications: Glyburide (Diabeta) 5 Mg Tab 2 TAB PO BID for 30 Days, #120 TAB Liraglutide (Victoza) 18 Mg/3 Ml Inj 0.6 MG SQ DAILY for 30 Days take 0.6mg subq daily for 1 week, if tolerate, on week 2 increase it to 1.2 mg daily. Amlodipine Besylate (Amlodipine Besylate) 5 Mg Tab 5 MG PO QAM for 30 Days, #30 TAB Doxycycline Hyclate (Doxycycline Hyclate) 100 Mg Cap 100 MG PO BID for 5 Days, #10 CAP Hydralazine HCl (Hydralazine HCl) 50 Mg Tab 50 MG PO TID for 30 Days, #90 TAB Metoprolol Tartrate (Metoprolol Tartrate) 100 Mg Tab 100 MG PO BID for 30 Days, #60 TAB Continued Medications: Furosemide (Lasix) 40 Mg Tab 40 MG PO DAILY Omeprazole ([facility] Omeprazole) 20 Mg Tab 20 MG PO DAILY Warfarin Sodium (Coumadin) 5 Mg Tab 5 MG PO Q2D ROTATES EVERY OTHER DAY WITH HALF TAB (2.5MG). 5MG ONE DAY, 2.5MG NEXT DAY, ETC Warfarin Sodium (Coumadin) 2 Mg Tab 2 MG PO Q2D ROTATES EVERY OTHER DAY WITH 5MG DOSE. 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 Pt said that he was in [place] about a week ago when he developed cellulitis in his right lower leg. He went to the ER in [place] and was given clindamycin 10 days course. Pt said that he is on clindamycin now. He said that the leg is drier take off tender but it slowly improved. Pt said that he had blood work done in the ED in [place], his lab work showed abnormal renal function with creatine 2.5. He said that he did not know that he had kidney disease. He doesn't remember his baseline creatine. He said that his last blood work by his pcp was probably more than 9 month to 12 months ago. He said that he remembers that his PCP once told him his kidney function was borderline. He admits to a history of "7 PE' s in 2009" but denies any personal history of heart failure. He takes daily Coumadin for the history of clots. 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 Physical Exam (per Admitting): General Appearance: WD/WN, no apparent distress Head: normocephalic, atraumatic Eyes: normal inspection, PERRL, EOMI ENT: hearing grossly normal Neck: supple, no JVD Respiratory/Chest: lungs clear, normal breath sounds, no respiratory distress, no accessory muscle use Cardiovascular: regular rate, rhythm, no JVD Abdomen/GI: normal bowel sounds, non tender Back: no CVA tenderness Extremities/Musculoskelatal: no calf tenderness, + pertinent finding ( Rilght LE erythema, swelling, warm and tenderness) Neurologic/Psych: no motor/sensory deficits, alert, oriented x 3 Skin: warm/dry, no rash Lymphatic: no adenopathy Hospital Course Right LE Cellulitis Afebrile, No leukocytosis Elevated ESR Has been on PO clindamycin with slowly improvement Xray of the leg showed no acute osseous injury of the right lower leg. On vanco and zosyn IV Blood cx no growth Wound cx growth gram positive cocci Will D/C zosyn for now erythema and swelling improved No need to get doppler to r/o DVT because it will not change the management since pt is on Coumadin for lifetime Monitor WBC 03/24 Erythema and swelling improved significantly Wound cx positive for gram negative staph Received IV vanco, then change to PO doxy Doppler of RLE negative for DVT Acute Kidney injury on CKD stage 3 Creatine on admission 2.4 Possible related to diuretic/ARB/ACEI Creatine in the ED @ [facility] was 2.5 on (03/13/17) We don't have his baseline creatine since he follows with an outsider provider Continue IVF Hold furosemide, Lasix and losartan nephro consulted Will call his PCP to check for his baseline creatine Continue monitor BMP 03/24 Creatine 2.4 today Call his PCP dr. Younger on 03/22, His pcp said his creatine was 2.25 on 07/30 with GFR in the 30's baseline Avoid nephrotoxic agents Discussed with pt that he needs tight diabetic management, avoid nephrotoxic agents and well BP control to avoid to go to ESRD in the future Nephrology on board case discussed with Dr. Alves recommended to avoid restarting metformin on discharge Renal U/S showed Multiple renal cysts. No obstruction. Pt will call [facility] (Dr. 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 If restart (due to limiting option), will need to monitor his renal function called his pharmacy, his insurance will cover for Victoza with no co-pay. will start on victoza 0.6 mg subq daily, if tolerated on week 1, will increase to 1.2mg Major side effects discussed with pt about Victoza such as nausea/vomiting/ diarrhea, weight loss and hypoglycemia PCP may consider to add DPP4-inhibitor (like trajenta) in the future if his BS not control and insurance will cover it Will need to see an endocrinology Will discharge on glyburide and Victoza Monitor Blood sugar closely follow a healthy DM diet diabetic education was consulted HTN Continue holding furosemide/Losartan and lisinopril starting on amlodipine 5 mg and hydralazine 50 mg BID BP not controlled Case discussed with nephrology recommended to hold losartan, lisinopril for now Resume lasix, and continue norvasc and hydralazine continue monitor BP and titrate BP meds Lisinopril can resume if renal function continue to improve, will defer to PCP Obesity Counseling on wt loss Victoza will help with the weight loss DVT px on coumadin INR 1.4 on heparin subq due to INR less than 2 CODE STATUS Full code DISPOSITION Please call your primary care provider Dr. Younger to schedule a follow up appointment within 1 week It is very important to follow with nephrology (You will need to schedule an appointment with nephrology to manage your kidney) Starting on Victoza 0.6 mg subq daily for 1 week, if you tolerate it well with no side effects (such as nausea, vomiting and diarrhea and low blood sugar), on week 2 please increase it to 1.2 mg subq. Continue monitor blood sugar and bring your blood sugar log in your next appointment with Dr. Younger You will need to follow with an endocrinology Follow up a healthy diabetes diet and limiting concentrated sweet Counseling on weight loss Continue monitor blood pressure and bring blood pressure log at your next appointment with Dr. Younger Total time spent on discharge = 35 minutes This includes examination of the patient, discharge planning, medication reconciliation, and communication with other providers. Discharge Instructions Discharge Instructions Date of Service Mar 24, 2017. Admission Reason for Admission: Acute Kidney Injury, Cellulitis Discharge Discharge Diagnosis / Problem: leg cellulitis, Acute kidney injury on chronic kidney disease, Diabetes Discharge Goals Goal(s): Decrease discomfort, Improve function, Improve disease control Activity Recommendations Activity Limitations: resume your previous activity (as tolerated) . Instructions / Follow-Up Instructions / Follow-Up Please call your primary care provider Dr. Younger to schedule a follow up appointment within 1 week It is very important to follow with nephrology (You will need to schedule an appointment with nephrology to manage your kidney) Starting on Victoza 0.6 mg subq daily for 1 week, if you tolerate it well with no side effects (such as nausea, vomiting and diarrhea and low blood sugar), on week 2 please increase it to 1.2 mg subq. Continue monitor blood sugar and bring your blood sugar log in your next appointment with Dr. Younger You will need to follow with an endocrinology for your diabetes Follow up a healthy diabetes diet and limiting concentrated sweet Counseling on weight loss Continue monitor blood pressure and bring blood pressure log at your next appointment with Dr. Younger Avoid medications that can damage your kidney Continue monitor your INR ( take coumadin 5mg tomorrow) Check BMP between 3 to 5 days to monitor your kidney function Current Hospital Diet Patient's current hospital diet: Diabetes Type 2 Diet, Low Sodium Diet (2gm Na) Discharge Diet Recommended Diet: Low Sodium Diet (2gm Na), Diabetes Type 2 Diet Pending Studies Studies pending at discharge: no Laboratory Results Hemoglobin A1c Test 03/21/17 06:40 Range/Units Estimated Average Glucose 209 mg/dl Hemoglobin A1c 8.9 H 4.5-5.6 % Medical Emergencies . Who to Call and When: Medical Emergencies: If at any time you feel your situation is an emergency, please call 911 immediately. . Non-Emergent Contact Non-Emergency issues call your: Primary Care Provider Call Non-Emergent contact if: you have any medication questions . . "Provider Documentation" section prepared by Janine Tatum. . VTE Core Measure Inpt VTE Proph given/why not?: Unfractionated heparin SQ, Warfarin (Coumadin) Additional Copies To Asaf Younger
== END 2017-03-24 18:00 | disposition home or self-care (01) | DRG 603 ==
LOC: C.EDB 12:50 → C.MED 16:51 → ENRESERV 17:53 → C.MS2W 03-21 18:24
PROVIDERS: ADMIT Internal Medicine; ATTEND Internal Medicine
DX: L03.115 Cellulitis of right lower limb (principal); N17.9 Acute kidney failure, unspecified; Z68.41 Body mass index [BMI] 40.0-44.9, adult; T50.1X5A Adverse effect of loop [high-ceiling] diuretics, initial encounter; T46.5X5A Adverse effect of other antihypertensive drugs, initial encounter; T46.4X5A Adverse effect of angiotensin-converting-enzyme inhibitors, initial encounter; B95.7 Other staphylococcus as the cause of diseases classified elsewhere; I12.9 Hypertensive chronic kidney disease with stage 1 through stage 4 chronic kidney disease, or unspecified chronic kidney disease; E11.22 Type 2 diabetes mellitus with diabetic chronic kidney disease; N18.3 Chronic kidney disease, stage 3 (moderate); K21.9 Gastro-esophageal reflux disease without esophagitis; I89.0 Lymphedema, not elsewhere classified; E66.9 Obesity, unspecified; Z86.711 Personal history of pulmonary embolism; Z86.69 Personal history of other diseases of the nervous system and sense organs; Z96.643 Presence of artificial hip joint, bilateral; Z79.01 Long term (current) use of anticoagulants; Z79.84 Long term (current) use of oral hypoglycemic drugs; Z79.899 Other long term (current) drug therapy

== ENCOUNTER 2022-08-06 16:19 | Inpatient (IN) ==
--- NOTE | 2022-08-06 16:46 | ED Triage Note ---
Date of Service August 06, 2022 History of Present Illness This patient was briefly evaluated while in triage. An abbreviated physical exam was performed. This patient is a 66-year-old Male with worsening dyspnea. Recent fluid retention and stage 4 renal failure. No recent labs. Seen by chief of surgery today. Echo revealing "good" EF per patient. No medications today. Physical Exam GENERAL: 66 year old male. In no acute distress. Hypertensive. SKIN: No lesions or rashes. HEART: Regular rate and rhythm. LUNGS: Clear to auscultation. NEURO: Alert and oriented. No deficits. MUSCULOSKELETAL: No deformities to inspection of the extremities. PSYCH: Patient is pleasant and answers all questions appropriately. Initial orders for labs and / or imaging were placed and patient was placed in the waiting area until a bed is available. Please see further documentation for the full ED course.
[2022-08-06 17:18] LABS: Basophils # (auto) 0.05 K/uL (0-0.2); Basophils % (auto) 0.8 %; Eosinophils % (auto) 1.6 %; Hematocrit (blood only) 35.6 % (42.0-52.0); Hemoglobin 11.8 g/dl (14.0-18.0); Immature Granulocytes # (auto) 0.01 K/uL (0.01-0.20); Immature Granulocytes % (auto) 0.2 %; Lymphocytes # (auto) 1.03 K/uL (1.2-3.4); Mean Corpuscular Hemoglobin 29.9 pg (25.0-34.0); Mean Corpuscular Hgb Conc 33.1 g/dL (32.0-36.0); Mean Corpuscular Volume 90.1 fL (80.0-100.0); Mean Platelet Volume 10.9 fL (9.4-12.4); Monocytes # (auto) 0.53 K/uL (0.11-0.59); Monocytes % (auto) 8.2 %; Neutrophils # (auto) 4.72 K/uL (1.40-6.50); Neutrophils % (auto) 73.2 %; Platelet Count 236 K/uL (130-400); RDW Coefficient of Variation 13.2 % (11.5-14.5); RDW Standard Deviation 44.3 fL (36.4-46.3); Red Blood Count 3.95 M/uL (4.70-6.10); White Blood Count 6.44 K/ul (4.8-10.8)
--- NOTE | 2022-08-06 17:36 | XRay Report ---
XR chest 1V portable CLINICAL HISTORY: Dyspnea COMPARISON STUDY: Chest radiograph March 20, 2017. FINDINGS: Lung volumes are normal. No pneumothorax or pleural effusion is present. There is no consol idation to suggest pneumonia. There is mild cardiomegaly without evidence for pulmonary edema. Severa l old left-sided rib fractures are incidentally noted. IMPRESSION: No acute cardiopulmonary findings. Mild cardiomegaly. ACT 112: Negative or not required by law. Electronically signed by: Kiran Franco M.D. 08/06/2022 5:34 PM
[2022-08-06 18:29] LABS: Alanine Aminotransferase 17 U/L (7-52); Albumin Globulin Ratio 1.1 (0.9-2); Albumin Level 3.5 gm/dl (3.4-5.0); Alkaline Phosphatase 65 U/L (34-104); Anion Gap 7 (3-11); BUN Creatinine Ratio 15.7 (10-20); Bilirubin,Total 0.4 mg/dl (0.2-1.0); Blood Urea Nitrogen 50 mg/dl (6-23); Calcium 8.7 mg/dl (8.5-10.1); Carbon Dioxide 19 mmol/L (21-32); Chloride 108 mmol/L (98-107); Est GFR (African American) 22.2 ml/min; Est GFR (Non-African American) 19.1 ml/min; Globulin 3.2 gm/dl (2.5-4.0); Glucose 243 mg/dl (70-99(Fasting)); Sodium 134 mmol/L (136-145); Total Protein 6.7 gm/dl (6.0-8.3)
--- NOTE | 2022-08-06 19:13 | Emergency Department Note ---
Impression & Plan Dyspnea, Volume overload, Supratherapeutic INR Admit to the [facility] ED Provider Note NAME: SONIA GARCIA AGE: 66 SEX: M ARRIVES VIA: Walk-In INFORMANT: Patient and his ED PROVIDER(S): Esperanza Villegas DO CHIEF COMPLAINT: Exertional shortness of breath and fluid retention PLAN: Disposition: Admit to the [facility] Condition: Guarded MEDICAL DECISION MAKING: This is a 66-year-old male patient who presents to the emergency department with significant exertional shortness of breath over the past week with fluid retention. Patient saw cardiology today and they refer the patient to the emergency department. Chest x-ray was essentially unremarkable. Patient was noted to be significantly hypertensive. Patient's creatinine is somewhat elevated above baseline. INR is supratherapeutic. BNP is elevated to 815. Troponin is slightly elevated to 25. Patient has significant volume overload which is multifactorial. Discussed the case with the [facility] and they will evaluate for further inpatient care. Triage Nursing notes reviewed and agree with them. Additional history obtained from the patient's is at the bedside External records were reviewed Vital Signs: reviewed and remarkable for hypertension Differential diagnosis: Congestive heart failure, acute renal failure, hypertensive crisis, STEMI, NSTEMI, Diagnostics interpreted by me: ECG: Normal sinus rhythm at a rate of [address] segment elevation or signs of ischemia. There is T wave inversion in lead I and aVL. There is some mild ST segment depression in leads II, III and aVF. There is no ectopy. Cardiac Monitoring: Normal sinus rhythm at 66 Laboratory studies: See below Imaging studies: As per my independent interpretation Portable chest x-ray: No acute pulmonary infiltrates, consolidations or signs of pulmonary edema. HPI: 66/M arrives for evaluation of exertional shortness of breath and fluid retention. Over the past 1 week, the patient has had increasing shortness of breath, specifically with exertion. He is also noted significant fluid retention. The first thing the patient notices that he could not button his pants which she has been wearing for many many years. The patient takes 40 mg of Lasix daily. He saw cardiology today and they referred him here to the hospital for further evaluation. Patient has noticed edema of his entire lower extremities, genitals and hands. PAST MEDICAL HISTORY:See Below PAST SURGICAL HISTORY:See Below FAMILY HISTORY:See Below SOCIAL HISTORY:See Below HOME MEDICATIONS:See list ALLERGIES:See list VITALS:See Below PHYSICAL EXAMINATION: HEENT: Head - normocephalic and atraumatic. Pupils are equal, round, and reactive to light. Extraocular eye muscles are intact, and sclera are anicteric . Nose - moist nasal mucosa without discharge. Mouth - moist buccal mucosa. Oropharynx is nonerythematous and there is no tonsillar exudate or edema noted. Neck: Supple; no JVD or cervical lymphadenopathy Heart: Regular rate and rhythm. There is a normal S1 and S2 with no murmurs, clicks, or gallops appreciated. Lungs: Clear to auscultation bilaterally with no wheezes, rales, or rhonchi. Abdomen: Soft, completely nontender, nondistended, with good bowel sounds. There are no palpable pulsatile masses or hepatosplenomegaly. There is no guarding, rigidity, or rebound noted. Extremities: The patient has significant extremity edema including pitting edema up to his mid thighs. Patient has edema of both hands. Skin: warm and dry with good turgor and no rashes. ED COURSE: Times/Reassessments: 1814: The patient was evaluated in room A-10. A complete history and physical was performed. A portable chest x-ray was obtained. A twelve-lead EKG was obtained. An order was placed for continuous cardiac monitoring. The patient was in a normal sinus rhythm at a rate of 67. I discussed the case with the [facility] and they will evaluate for further management. 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 HTN (hypertension) Hx pulmonary embolism Hyperkalemia Hyperlipidemia Obesity Postlaminectomy syndrome PVD (peripheral vascular disease) Right foot drop Stage 3b chronic kidney disease Statin intolerance Uncontrolled type 2 diabetes mellitus Vitamin D deficiency Surgical History History of back surgery History of hip surgery History of tonsillectomy Family History Brother Cancer Father Hypertension Diabetes Heart disease Dementia Mother Diabetes Social History Smoking Status: Former smoker Second Hand Exposure: No; Do You Dip or Chew Tobacco: No; Tobacco Cessation Education Requested by Patient: No Hx Alcohol Use: No Hx Substance Use: No Preferred Language: Micronesian Communication Ability: Effective Termite Exterminator Required: No Beliefs That Will Affect Care: None Current Living Situation: Alone Current Living Situation Comment: Owns and lives in [place], daughter lives [place] Other Information That Helps Us Care for You: No Feels Safe at Home: Yes Safety Concerns: Feels Safe At This Time Assistive Devices: Cane Allergies Allergies Allergy/AdvReac Type Severity Reaction Status Date / Time atorvastatin AdvReac Intermediate muscle Verified 08/06/22 18:25 aches bupropion [From Wellbutrin] AdvReac Intermediate vivid Verified 08/06/22 18:25 dreams and hallucinations Blvgiqi-KUJ-EzM Reductase AdvReac Intermediate body aches Verified 08/06/22 18:25 Inhibitor [Jolhcan-Als-Lcn Reductase Inhibitor] Home Meds Home Medications Medication Instructions Recorded Confirmed gabapentin 100 mg capsule 100 mg PO TID 03/26/20 08/06/22 glipizide 10 mg tablet 10 mg PO DAILY 03/26/20 08/06/22 hydralazine 50 mg tablet 50 mg PO TID 03/26/20 08/06/22 liraglutide 0.6 mg/0.1 mL (18 mg/3 1.8 mg subcut DAILY 03/26/20 08/06/22 mL) subcutaneous pen injector (Victoza 3-Sampson) warfarin 5 mg tablet 5 mg PO QPM 03/26/20 08/06/22 atenolol 50 mg tablet 50 mg PO BID 05/21/21 08/06/22 sertraline 100 mg tablet 100 mg PO DAILY 05/22/21 08/06/22 calcitriol 0.25 mcg capsule 0.25 mcg PO 3XWK 08/06/22 08/06/22 fenofibrate micronized 43 mg 43 mg PO DAILY 08/06/22 08/06/22 capsule Previous Rx's Medication Instructions Recorded furosemide 40 mg tablet (Lasix) 40 mg PO DAILY #90 tabs 01/20/23 Results & Data (ED) Vital Signs Vital Signs - 24 hr 08/06/22 16:40 08/06/22 18:21 08/06/22 18:35 Temperature 36.5 C Temperature Source Temporal Artery Scan Pulse Rate 70 68 67 Pulse Rate from SpO2 Sensor Pulse Rhythm Regular Respiratory Rate 22 Respiratory Effort / Characteristics Non-Labored Spontaneous Respiratory Depth Normal Blood Pressure 230/111 H Blood Pressure Mean 150 Pulse Oximetry 97 97 Oxygen Delivery Method Room Air Room Air Sepsis New/Unexplained Change in Mental Status N/A Sepsis Action Taken by Nursing No Action Required 08/06/22 18:30 08/06/22 18:30 Temperature Temperature Source Pulse Rate 67 Pulse Rate from SpO2 Sensor 67 Pulse Rhythm Respiratory Rate 19 Respiratory Effort / Characteristics Respiratory Depth Blood Pressure 232/103 H Blood Pressure Mean 146 Pulse Oximetry 96 Oxygen Delivery Method Sepsis New/Unexplained Change in Mental Status Sepsis Action Taken by Nursing Laboratory Data 08/06/22 16:51 08/06/22 16:51 Lab Results 08/06/22 08/06/22 08/06/22 Range/Units 16:51 16:51 16:51 WBC 6.44 (4.8-10.8) K/ul RBC 3.95 L (4.70-6.10) M/uL Hgb 11.8 L (14.0-18.0) g/dl Hct 35.6 L (42.0-52.0) % MCV 90.1 (80.0-100.0) fL MCH 29.9 (25.0-34.0) pg MCHC 33.1 (32.0-36.0) g/dL RDW Std Deviation 44.3 (36.4-46.3) fL RDW Coeff of Severiano 13.2 (11.5-14.5) % Plt Count 236 (130-400) K/uL MPV 10.9 (9.4-12.4) fL Immature Gran % (Auto) 0.2 % Neut % (Auto) 73.2 % Lymph % (Auto) 16.0 % [place] % (Auto) 8.2 % Eos % (Auto) 1.6 % Baso % (Auto) 0.8 % Neut # (Auto) 4.72 (1.40-6.50) K/uL Lymph # (Auto) 1.03 L (1.2-3.4) K/uL [place] # (Auto) 0.53 (0.11-0.59) K/uL Eos # (Auto) 0.10 (0-0.50) K/uL Baso # (Auto) 0.05 (0-0.2) K/uL Immature Gran # (Auto) 0.01 (0.01-0.20) K/uL PT Cancelled INR Cancelled APTT Cancelled PTT Ratio Cancelled D-Dimer (0-500) ug/L FEU Sodium 134 L (136-145) mmol/L Potassium TNP Chloride 108 H (98-107) mmol/L Carbon Dioxide 19 L (21-32) mmol/L Anion Gap 7 (3-11) BUN 50 H (6-23) mg/dl Creatinine 3.18 H (0.6-1.4) mg/dl Est Cr Clr Drug Dosing 27.0 ml/min Est GFR ( Amer) 22.2 ml/min Est GFR (Non-Af Amer) 19.1 ml/min BUN/Creatinine Ratio 15.7 (10-20) Glucose 243 H (70-99(Fasting)) mg/dl Estimat Average Glucose mg/dl Hemoglobin A1c (4.5-5.6) % Calcium 8.7 (8.5-10.1) mg/dl Magnesium 2.0 (1.7-2.4) mg/dl Total Bilirubin 0.4 (0.2-1.0) mg/dl AST TNP ALT 17 (7-52) U/L Alkaline Phosphatase 65 (34-104) U/L Troponin I High Sens 25.0 H (0-20) pg/ml B-Natriuretic Peptide (0-100) pg/ml Total Protein 6.7 (6.0-8.3) gm/dl Albumin 3.5 (3.4-5.0) gm/dl Globulin 3.2 (2.5-4.0) gm/dl Albumin/Globulin Ratio 1.1 (0.9-2) TSH (0.300-4.500) uIu/ml Urine Color Urine Appearance (Clear) Urine pH (4.5-7.5) Ur Specific [place] (1.000-1.030) Urine Protein (Negative) Urine Glucose (UA) (Negative) Urine Ketones (Negative) Urine Blood (Negative) Urine Nitrite (Negative) Urine Bilirubin (Negative) Urine Urobilinogen (Negative) Ur Leukocyte Esterase (Negative) Urine WBC (Auto) (0-5) /hpf Urine RBC (Auto) (0-4) /hpf U Hyaline Cast (Auto) (0-5) /lpf U Epithel Cells (Auto) (0-5) /lpf Urine Bacteria (Auto) (Negative) SARS-CoV-2, RNA, NAAT (NEGATIVE) 08/06/22 08/06/22 08/06/22 Range/Units 16:51 16:51 16:51 WBC (4.8-10.8) K/ul RBC (4.70-6.10) M/uL Hgb (14.0-18.0) g/dl Hct (42.0-52.0) % MCV (80.0-100.0) fL MCH (25.0-34.0) pg MCHC (32.0-36.0) g/dL RDW Std Deviation (36.4-46.3) fL RDW Coeff of Severiano (11.5-14.5) % Plt Count (130-400) K/uL MPV (9.4-12.4) fL Immature Gran % (Auto) % Neut % (Auto) % Lymph % (Auto) % [place] % (Auto) % Eos % (Auto) % Baso % (Auto) % Neut # (Auto) (1.40-6.50) K/uL Lymph # (Auto) (1.2-3.4) K/uL [place] # (Auto) (0.11-0.59) K/uL Eos # (Auto) (0-0.50) K/uL Baso # (Auto) (0-0.2) K/uL Immature Gran # (Auto) (0.01-0.20) K/uL PT INR APTT PTT Ratio D-Dimer (0-500) ug/L FEU Sodium (136-145) mmol/L Potassium Chloride (98-107) mmol/L Carbon Dioxide (21-32) mmol/L Anion Gap (3-11) BUN (6-23) mg/dl Creatinine (0.6-1.4) mg/dl Est Cr Clr Drug Dosing ml/min Est GFR ( Amer) ml/min Est GFR (Non-Af Amer) ml/min BUN/Creatinine Ratio (10-20) Glucose (70-99(Fasting)) mg/dl Estimat Average Glucose 209 mg/dl Hemoglobin A1c 8.9 H (4.5-5.6) % Calcium (8.5-10.1) mg/dl Magnesium (1.7-2.4) mg/dl Total Bilirubin (0.2-1.0) mg/dl AST ALT (7-52) U/L Alkaline Phosphatase (34-104) U/L Troponin I High Sens (0-20) pg/ml B-Natriuretic Peptide (0-100) pg/ml Total Protein (6.0-8.3) gm/dl Albumin (3.4-5.0) gm/dl Globulin (2.5-4.0) gm/dl Albumin/Globulin Ratio (0.9-2) TSH 2.312 (0.300-4.500) uIu/ml Urine Color Urine Appearance (Clear) Urine pH (4.5-7.5) Ur Specific [place] (1.000-1.030) Urine Protein (Negative) Urine Glucose (UA) (Negative) Urine Ketones (Negative) Urine Blood (Negative) Urine Nitrite (Negative) Urine Bilirubin (Negative) Urine Urobilinogen (Negative) Ur Leukocyte Esterase (Negative) Urine WBC (Auto) (0-5) /hpf Urine RBC (Auto) (0-4) /hpf U Hyaline Cast (Auto) (0-5) /lpf U Epithel Cells (Auto) (0-5) /lpf Urine Bacteria (Auto) (Negative) SARS-CoV-2, RNA, NAAT NEGATIVE (NEGATIVE) 08/06/22 08/06/22 08/06/22 Range/Units 18:46 18:46 18:46 WBC (4.8-10.8) K/ul RBC (4.70-6.10) M/uL Hgb (14.0-18.0) g/dl Hct (42.0-52.0) % MCV (80.0-100.0) fL MCH (25.0-34.0) pg MCHC (32.0-36.0) g/dL RDW Std Deviation (36.4-46.3) fL RDW Coeff of Severiano (11.5-14.5) % Plt Count (130-400) K/uL MPV (9.4-12.4) fL Immature Gran % (Auto) % Neut % (Auto) % Lymph % (Auto) % [place] % (Auto) % Eos % (Auto) % Baso % (Auto) % Neut # (Auto) (1.40-6.50) K/uL Lymph # (Auto) (1.2-3.4) K/uL [place] # (Auto) (0.11-0.59) K/uL Eos # (Auto) (0-0.50) K/uL Baso # (Auto) (0-0.2) K/uL Immature Gran # (Auto) (0.01-0.20) K/uL PT 36.6 H INR 3.7 H APTT 60.5 H* PTT Ratio 2.2 D-Dimer (0-500) ug/L FEU Sodium (136-145) mmol/L Potassium 4.8 Chloride (98-107) mmol/L Carbon Dioxide (21-32) mmol/L Anion Gap (3-11) BUN (6-23) mg/dl Creatinine (0.6-1.4) mg/dl Est Cr Clr Drug Dosing ml/min Est GFR ( Amer) ml/min Est GFR (Non-Af Amer) ml/min BUN/Creatinine Ratio (10-20) Glucose (70-99(Fasting)) mg/dl Estimat Average Glucose mg/dl Hemoglobin A1c (4.5-5.6) % Calcium (8.5-10.1) mg/dl Magnesium (1.7-2.4) mg/dl Total Bilirubin (0.2-1.0) mg/dl AST 18 ALT (7-52) U/L Alkaline Phosphatase (34-104) U/L Troponin I High Sens (0-20) pg/ml B-Natriuretic Peptide 815 H (0-100) pg/ml Total Protein (6.0-8.3) gm/dl Albumin (3.4-5.0) gm/dl Globulin (2.5-4.0) gm/dl Albumin/Globulin Ratio (0.9-2) TSH (0.300-4.500) uIu/ml Urine Color Urine Appearance (Clear) Urine pH (4.5-7.5) Ur Specific [place] (1.000-1.030) Urine Protein (Negative) Urine Glucose (UA) (Negative) Urine Ketones (Negative) Urine Blood (Negative) Urine Nitrite (Negative) Urine Bilirubin (Negative) Urine Urobilinogen (Negative) Ur Leukocyte Esterase (Negative) Urine WBC (Auto) (0-5) /hpf Urine RBC (Auto) (0-4) /hpf U Hyaline Cast (Auto) (0-5) /lpf U Epithel Cells (Auto) (0-5) /lpf Urine Bacteria (Auto) (Negative) SARS-CoV-2, RNA, NAAT (NEGATIVE) 08/06/22 08/06/22 Range/Units 18:46 20:15 WBC (4.8-10.8) K/ul RBC (4.70-6.10) M/uL Hgb (14.0-18.0) g/dl Hct (42.0-52.0) % MCV (80.0-100.0) fL MCH (25.0-34.0) pg MCHC (32.0-36.0) g/dL RDW Std Deviation (36.4-46.3) fL RDW Coeff of Severiano (11.5-14.5) % Plt Count (130-400) K/uL MPV (9.4-12.4) fL Immature Gran % (Auto) % Neut % (Auto) % Lymph % (Auto) % [place] % (Auto) % Eos % (Auto) % Baso % (Auto) % Neut # (Auto) (1.40-6.50) K/uL Lymph # (Auto) (1.2-3.4) K/uL [place] # (Auto) (0.11-0.59) K/uL Eos # (Auto) (0-0.50) K/uL Baso # (Auto) (0-0.2) K/uL Immature Gran # (Auto) (0.01-0.20) K/uL PT INR APTT PTT Ratio D-Dimer 230 (0-500) ug/L FEU Sodium (136-145) mmol/L Potassium Chloride (98-107) mmol/L Carbon Dioxide (21-32) mmol/L Anion Gap (3-11) BUN (6-23) mg/dl Creatinine (0.6-1.4) mg/dl Est Cr Clr Drug Dosing ml/min Est GFR ( Amer) ml/min Est GFR (Non-Af Amer) ml/min BUN/Creatinine Ratio (10-20) Glucose (70-99(Fasting)) mg/dl Estimat Average Glucose mg/dl Hemoglobin A1c (4.5-5.6) % Calcium (8.5-10.1) mg/dl Magnesium (1.7-2.4) mg/dl Total Bilirubin (0.2-1.0) mg/dl AST ALT (7-52) U/L Alkaline Phosphatase (34-104) U/L Troponin I High Sens (0-20) pg/ml B-Natriuretic Peptide (0-100) pg/ml Total Protein (6.0-8.3) gm/dl Albumin (3.4-5.0) gm/dl Globulin (2.5-4.0) gm/dl Albumin/Globulin Ratio (0.9-2) TSH (0.300-4.500) uIu/ml Urine Color Yellow Urine Appearance Clear (Clear) Urine pH 6.5 (4.5-7.5) Ur Specific [place] 1.018 (1.000-1.030) Urine Protein 3+ H (Negative) Urine Glucose (UA) 3+ H (Negative) Urine Ketones Negative (Negative) Urine Blood 1+ H (Negative) Urine Nitrite Negative (Negative) Urine Bilirubin Negative (Negative) Urine Urobilinogen Negative (Negative) Ur Leukocyte Esterase Negative (Negative) Urine WBC (Auto) 1-5 (0-5) /hpf Urine RBC (Auto) 10-30 H (0-4) /hpf U Hyaline Cast (Auto) 0 (0-5) /lpf U Epithel Cells (Auto) 10-20 H (0-5) /lpf Urine Bacteria (Auto) Negative (Negative) SARS-CoV-2, RNA, NAAT (NEGATIVE) Administered Medications Bumetanide (Bumetanide 1 Mg Tab) 1 mg PO QAM [facility] Stop: 09/06/22 11:29 Last Admin: 08/08/22 07:48 Dose: 1 mg Documented By: Admin: 08/07/22 11:57 Dose: 1 mg Documented By: VARSHA Carvedilol (Carvedilol 3.125 Mg Tab) 3.125 mg PO BID [facility] Stop: 09/06/22 08:59 Last Admin: 08/08/22 07:49 Dose: 3.125 mg Documented By: Admin: 08/07/22 20:57 Dose: 3.125 mg Documented By: Admin: 08/07/22 08:51 Dose: 3.125 mg Documented By: VARSHA Gabapentin (Gabapentin 100 Mg Cap) 100 mg PO TID [facility] Stop: 09/06/22 08:59 Last Admin: 08/08/22 12:37 Dose: 100 mg Documented By: Admin: 08/08/22 07:49 Dose: 100 mg Documented By: Admin: 08/07/22 20:57 Dose: 100 mg Documented By: Admin: 08/07/22 15:23 Dose: 100 mg Documented By: Admin: 08/07/22 08:51 Dose: 100 mg Documented By: VARSHA Hydralazine HCl (Hydralazine Hcl 20 Mg/Ml Vial) 10 mg IV Q6H PRN PRN Reason: HypertensionSBP>180orDBP>100 Stop: 09/06/22 15:44 Last Admin: 08/07/22 19:31 Dose: 10 mg Documented By: Admin: 08/07/22 15:43 Dose: 10 mg Documented By: VARSHA Hydralazine HCl (Hydralazine Tab 50 Mg Tab) 100 mg PO TID [facility] Stop: 09/07/22 13:59 Last Admin: 08/08/22 12:37 Dose: 100 mg Documented By: VARSHA Insulin Aspart (Insulin Aspart Per Unit) 0 units SC ACHS [facility] Stop: 09/06/22 01:38 Last Admin: 08/08/22 16:40 Dose: 5 units Documented By: VARSHA Co-signed By: PHANI Admin: 08/08/22 12:38 Dose: 7 units Documented By: VARSHA Co-signed By: AMMY Admin: 08/08/22 07:47 Dose: 5 units Documented By: VARSHA Co-signed By: COLLEEN Admin: 08/07/22 20:55 Dose: 3 units Documented By: PRESLEY Co-signed By: YO Admin: 08/07/22 16:34 Dose: 1 units Documented By: VARSHA Co-signed By: PHANI Admin: 08/07/22 11:57 Dose: 5 units Documented By: VARSHA Co-signed By: PHANI Admin: 08/07/22 08:51 Dose: 1 units Documented By: VARSHA Co-signed By: CAROLINE Admin: 08/07/22 02:07 Dose: 10 units Documented By: OCHOA Co-signed By: MILTON Insulin Glargine (Lantus Per Unit Charge) 10 units SQ HS [facility] Stop: 09/06/22 20:59 Last Admin: 08/07/22 20:55 Dose: 10 units Documented By: PRESLEY Co-signed By: YO Miscellaneous (Order Awaiting Action: Fenofibrate Micronized 43 Mg Capsule) 1 each N/A QS [facility] Stop: 09/06/22 07:59 Last Admin: 08/08/22 14:10 Dose: Not Given Documented By: Admin: 08/08/22 07:48 Dose: Not Given Documented By: Admin: 08/08/22 00:37 Dose: Not Given Documented By: Admin: 08/07/22 15:24 Dose: Not Given Documented By: Admin: 08/07/22 08:48 Dose: Not Given Documented By: VARSHA Sertraline HCl (Sertraline Hcl 100 Mg Tablet) 100 mg PO DAILY [facility] Stop: 09/06/22 08:59 Last Admin: 08/08/22 07:48 Dose: 100 mg Documented By: Admin: 08/07/22 08:50 Dose: 100 mg Documented By: VARSHA Warfarin Sodium (Warfarin Sod 5 Mg Tab) 5 mg PO DAILY@1600 [facility] Stop: 09/07/22 15:59 Last Admin: 08/08/22 16:38 Dose: 5 mg Documented By: VARSHA Discontinued Medications Carvedilol (Carvedilol 3.125 Mg Tab) 3.125 mg PO NOW ONE Stop: 08/06/22 23:49 Last Admin: 08/07/22 00:11 Dose: 3.125 mg Documented By: SHARITA Furosemide (Furosemide 40 Mg/4 Ml Vial) 80 mg IV ONE ONE Stop: 08/06/22 22:32 Last Admin: 08/06/22 23:08 Dose: 80 mg Documented By: SHARITA Hydralazine HCl (Hydralazine Tab 50 Mg Tab) 50 mg PO NOW STA Stop: 08/06/22 21:47 Last Admin: 08/06/22 22:02 Dose: 50 mg Documented By: BONNY Hydralazine HCl (Hydralazine Hcl 20 Mg/Ml Vial) 10 mg IV NOW STA Stop: 08/07/22 01:07 Last Admin: 08/07/22 02:22 Dose: Not Given Documented By: OCHOA Hydralazine HCl (Hydralazine Tab 50 Mg Tab) 50 mg PO TID [facility] Stop: 09/06/22 04:24 Last Admin: 08/07/22 15:23 Dose: 50 mg Documented By: Admin: 08/07/22 05:07 Dose: 50 mg Documented By: OCHOA Hydralazine HCl (Hydralazine Hcl 25 Mg Tab) 75 mg PO TID [facility] Stop: 09/06/22 20:59 Last Admin: 08/08/22 07:49 Dose: 75 mg Documented By: Admin: 08/07/22 20:56 Dose: 75 mg Documented By: PRESLEY Albumin Human (Albumin 25%) 12.5 gm in 50 mls @ 50 mls/hr IV ONE ONE Stop: 08/06/22 23:30 Last Infusion: 08/07/22 00:11 Dose: 0 mls/hr Documented By: Admin: 08/06/22 23:09 Dose: 50 mls/hr Documented By: SHARITA Insulin Glargine (Lantus Per Unit Charge) 5 units SQ BID [facility] Stop: 09/06/22 01:38 Last Admin: 08/07/22 02:08 Dose: 5 units Documented By: OCHOA Co-signed By: MILTON Insulin Glargine (Lantus Per Unit Charge) 10 units SQ NOW STA Stop: 08/07/22 04:16 Last Admin: 08/07/22 05:16 Dose: Not Given Documented By: OCHOA Insulin Glargine (Lantus Per Unit Charge) 5 units SQ NOW STA Stop: 08/07/22 04:16 Last Admin: 08/07/22 05:07 Dose: 5 units Documented By: OCHOA Co-signed By: OSVALDO Labetalol HCl (Labetalol Hcl Iv 5 Mg/Ml 20ml) 10 mg IV NOW STA Stop: 08/06/22 21:16 Last Admin: 08/06/22 22:02 Dose: Not Given Documented By: BONNY Imaging Data Radiologist's Impression: Chest X-Ray 08/06/22 16:46 XR chest 1V portable CLINICAL HISTORY: Dyspnea COMPARISON STUDY: Chest radiograph March 20, 2017. FINDINGS: Lung volumes are normal. No pneumothorax or pleural effusion is present. There is no consolidation to suggest pneumonia. There is mild cardiomegaly without evidence for pulmonary edema. Several old left-sided rib fractures are incidentally noted. IMPRESSION: No acute cardiopulmonary findings. Mild cardiomegaly. ACT 112: Negative or not required by law. Electronically signed by: Kiran Franco M.D. 08/06/2022 5:34 PM Discharge Plan Visit Data Chief Complaint: Referred by Doctor Stated Complaint: REF BY DOC, KIDNEY FAILURE,NEEDS TEST ED Provider: Esperanza Villegas Discharge Problem: Dyspnea, Volume overload, Supratherapeutic INR Patient Disposition: Admitted As Inpatient Discharge Instructions Interventions: ED Discharge Assessment Last Done: 08/07/22 01:06 Dyspnea Qualifiers: Dyspnea type: dyspnea on exertion Qualified Code(s): R06.09 - Other forms of dyspnea Volume overload Qualifiers: Hypervolemia type: other Qualified Code(s): E87.79 - Other fluid overload
[2022-08-06 19:15] LABS: Potassium 4.8 mmol/L (3.5-5.1)
[2022-08-06 19:41] LABS: INR 3.7 (0.9-1.1); Partial Thromboplastin Ratio 2.2; Prothrombin Time 36.6 Seconds (9.0-12.0)
[2022-08-06 20:02] LABS: Partial Thromboplastin Time 60.5 Seconds (21.0-31.0)
[2022-08-06 20:35] LABS: Appearance Urine Clear (Clear); Bacteria Urine Automated Negative (Negative); Bilirubin Urine Negative (Negative); Blood Urine 1+ (Negative); Cast Urine Automated 0 /lpf (0-5); Color Urine Yellow; Glucose Urine UA 3+ (Negative); Ketones Urine Negative (Negative); Leukocyte Esterase Urine Negative (Negative); Nitrite Urine Negative (Negative); Protein Urine 3+ (Negative); Specific Gravity Urine 1.018 (1.000-1.030); Urobilinogen Urine Negative (Negative); pH Urine 6.5 (4.5-7.5)
[2022-08-06 20:56] LABS: D Dimer 230 ug/L FEU (0-500)
[2022-08-06] MEDS ORDERED: LABETALOL HCL IV 5 MG/ML 20ML IV STA (21:15)
--- NOTE | 2022-08-06 21:26 | History & Physical Report ---
Date of Service August 06, 2022 Assessment & Plan (1) SOB (shortness of breath): (2) Volume overload: (3) Chronic kidney disease, stage 4 (severe): (4) Uncontrolled type 2 diabetes mellitus: (5) Hx pulmonary embolism: (6) HTN (hypertension): (7) Hyperlipidemia: (8) Anemia due to chronic kidney disease: Plan: Assessment and plan per Dr. Blair. See addendum. History of Present Illness Chief Complaint: Shortness of breath Primary Care Provider: Asaf Younger MD Patient is 66-year-old male with PMH CKD IV, DM II, HTN, HLD, anemia chronic disease, history of PE anticoagulated on warfarin presented to ER with complaint of increased exertional SOB x 5 days. Also noticed increased BLE edema and abdominal girth. Denies CP. Also reports intermittent nausea and vomiting the past couple weeks. States has vomited 1-2 episodes a week over the past month. Did not take medications today as he felt nauseated and did not want to vomit them up. Also reports past 2 days has had a couple episodes of loose stool. He has taken Pepto-Bismol with relief. Denies any abdominal pain. Patient denies any known history of liver disease. Follows with cardiology, [place] in [place]. Seen there today. Today had limited echo and brought "echo report: EF: 45- 50%, mild concentric LVH, abnormal diastolic dysfunction, normal right ventricular size and function, no intracardiac mass or thrombus identified." Director Of Financial Reporting is Dr Schafer and was referred to ER today. Denies fever/chills, diaphoresis, hematemesis, hematochezia, melena, ARAGON, dizziness, syncope, vision changes, neck pain, orthopnea, palpitations, cough, sore throat, choking, otalgia, rhinorrhea, paresthesias, extremity weakness, rashes, dysuria, hematuria, urinary frequency. Allergies Allergy/AdvReac Type Severity Reaction Status Date / Time atorvastatin AdvReac Intermediate muscle Verified 08/06/22 18:25 aches bupropion [From Wellbutrin] AdvReac Intermediate vivid Verified 08/06/22 18:25 dreams and hallucinations Xiagnui-VGT-ZtH Reductase AdvReac Intermediate body aches Verified 08/06/22 18:25 Inhibitor [Drybopk-Cyz-Awq Reductase Inhibitor] Home Medications Medication Instructions Recorded Confirmed Type gabapentin 100 mg capsule 100 mg PO TID 03/26/20 08/06/22 History glipizide 10 mg tablet 10 mg PO DAILY 03/26/20 08/06/22 History hydralazine 50 mg tablet 50 mg PO TID 03/26/20 08/06/22 History liraglutide 0.6 mg/0.1 mL (18 mg/3 1.8 mg subcut DAILY 03/26/20 08/06/22 History mL) subcutaneous pen injector (Yooviza 3-Sampson) warfarin 5 mg tablet 5 mg PO QPM 03/26/20 08/06/22 History atenolol 50 mg tablet 50 mg PO BID 05/21/21 08/06/22 History sertraline 100 mg tablet 100 mg PO DAILY 05/22/21 08/06/22 History furosemide 40 mg tablet (Lasix) 40 mg PO DAILY #90 tabs 07/02/22 08/06/22 Rx calcitriol 0.25 mcg capsule 0.25 mcg PO 3XWK 08/06/22 08/06/22 History fenofibrate micronized 43 mg 43 mg PO DAILY 08/06/22 08/06/22 History capsule Past Med/Surg History Medical History Acute kidney injury Anemia due to chronic kidney disease Chronic kidney disease, stage 4 (severe) Depression, unspecified 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 HTN (hypertension) Hx pulmonary embolism Hyperkalemia Hyperlipidemia Obesity Postlaminectomy syndrome PVD (peripheral vascular disease) Right foot drop Stage 3b chronic kidney disease Statin intolerance Uncontrolled type 2 diabetes mellitus Vitamin D deficiency Surgical History History of back surgery History of hip surgery History of tonsillectomy Family History Brother Cancer Father Hypertension Diabetes Heart disease Dementia Mother Diabetes Social History Smoking Status: Former smoker Second Hand Exposure: No; Do You Dip or Chew Tobacco: No; Tobacco Cessation Education Requested by Patient: No Hx Alcohol Use: No Hx Substance Use: No Preferred Language: Korean Communication Ability: Effective Manufacturing Management Associate Required: No Beliefs That Will Affect Care: None Current Living Situation: Alone Current Living Situation Comment: Owns and lives in [place], daughter lives beside hit Other Information That Helps Us Care for You: No Feels Safe at Home: Yes Safety Concerns: Feels Safe At This Time Assistive Devices: Cane Review of Systems Review of Systems: All systems reviewed & are unremarkable except as noted in HPI & below Physical Exam Physical Exam: General: no distress, obese Head: normocephalic, atraumatic Eyes: conjunctiva non-injected, anicteric ENT: normal inspection external ears, nose, mucous membranes moist Neck: supple, trachea midline Lungs: clear, no respiratory distress, no wheezing/rhonchi/rales CV: RRR, no murmur Abd: +distendend, normal BS, soft, non-tender Ext: no cyanosis, no calf tenderness; R>L edema, +2 pitting edema BLE Neuro: A&O x 3, no focal deficits noted, normal affect Skin: warm, dry Results & Data Results & Data ([facility]) Vital Signs (Past 12 Hours) Vital Signs Temp Pulse Pulse Resp BP BP Pulse Ox 08/06/22 20:09 65 20 214/95 H 96 08/06/22 18:30 67 19 96 08/06/22 18:30 232/103 H 08/06/22 18:35 67 97 08/06/22 18:21 68 08/06/22 16:40 36.5 C 70 22 230/111 H 97 O2 Del Method 08/06/22 20:09 Room Air 08/06/22 18:30 08/06/22 18:30 08/06/22 18:35 Room Air 08/06/22 18:21 08/06/22 16:40 Room Air Laboratory Results Short CBC 08/06/22 Range/Units 16:51 WBC 6.44 (4.8-10.8) K/ul Hgb 11.8 L (14.0-18.0) g/dl Hct 35.6 L (42.0-52.0) % Plt Count 236 (130-400) K/uL BMP 08/06/22 08/06/22 16:51 18:46 Sodium 134 L Potassium TNP 4.8 Chloride 108 H Carbon Dioxide 19 L BUN 50 H Creatinine 3.18 H Glucose 243 H Calcium 8.7 Liver Function 08/06/22 08/06/22 Range/Units 16:51 18:46 Total Bilirubin 0.4 (0.2-1.0) mg/dl AST TNP 18 ALT 17 (7-52) U/L Alkaline Phosphatase 65 (34-104) U/L Albumin 3.5 (3.4-5.0) gm/dl Urine 08/06/22 Range/Units 20:15 Urine Color Yellow Urine Appearance Clear (Clear) Urine pH 6.5 (4.5-7.5) Ur Specific [place] 1.018 (1.000-1.030) Urine Protein 3+ H (Negative) Urine Glucose (UA) 3+ H (Negative) Diagnostic Findings Chest X-Ray 08/06/22 16:46 XR chest 1V portable CLINICAL HISTORY: Dyspnea COMPARISON STUDY: Chest radiograph March 20, 2017. FINDINGS: Lung volumes are normal. No pneumothorax or pleural effusion is present. There is no consolidation to suggest pneumonia. There is mild cardiomegaly without evidence for pulmonary edema. Several old left-sided rib fractures are incidentally noted. IMPRESSION: No acute cardiopulmonary findings. Mild cardiomegaly. ACT 112: Negative or not required by law. Electronically signed by: Kiran Franco M.D. 08/06/2022 5:34 PM Supervising Physician Co-Signing Physician Notes IM ATTENDING : Patient seen and examined. History obtained from patient and records. Preceding documentation by Ms. Felicita Hogan PA-C reviewed. In addition, patient not aware of sleep apnea symptoms. Patient with headache complaints and uncontrolled BP SBP 200s at home of 1 week duration. Fall at home causing bruising on the left upper extremity last week as per patient. CT head initial read: Normal head CT. 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 No acute fracture, dislocation, or joint effusion is seen. Severe diffuse arterial calcification is seen throughout the upper extremity. No hematoma, abscess, or abnormal fluid collection is seen. The radius and ulna appear smooth and intact. No fracture or dislocation is seen. Mild narrowing, osteophytosis, and chondral calcification throughout the wrist consistent with CPPD and/or osteoarthritic changes. FINAL ASSESSMENT AND PLAN as follows : Hypertensive crisis secondary to fluid retention History CRI Possible right-sided heart failure, EF 45 to 50% on outpatient 2D echo done today at [place] electronic service technician office Rule out liver disease as additional etiology of edema History PVD as per records Hyperlipidemia, statin intolerance History PE on Coumadin, INR slightly supratherapeutic Chronic anemia, hemoglobin slightly lower than baseline DM2 on oral medications, suboptimal control as of recent hemoglobin A1c of 11.2 last February 2020 Anxiety/mood disorder, at baseline past tobacco abuse PCU Lasix albumin 1 dose Fluid restriction Further management of fluid retention as per [facility] Nephrology Switch patient's Atenolol to Coreg as contemplated on recent outpatient Nephrology visit last month. Liver ultrasound Re: Abdominal distention/anasarca rule out liver disease Basal bolus insulin, ISS BG goal 1 10-1 40, carb count coverage, update hemoglobin A1c DVT prophylaxis. Coumadin INR goal between 2 and 3 Full code Text document was generated using BitGo voice recognition software. It may contain grammatical or spelling errors. Kindly contact undersigned for clarification of any documentation item in question.
[2022-08-06] MEDS ORDERED: hydrALAZINE TAB 50 MG TAB PO STA (21:46)
[2022-08-06 22:14] LABS: Estimated Average Glucose 209 mg/dl; Hemoglobin A1C 8.9 % (4.5-5.6)
[2022-08-06] MEDS ORDERED: FUROSEMIDE 40 MG/4 ML VIAL IV ONE (22:31)
[2022-08-06] MEDS ORDERED: ALBUMIN 25% 12.5 GM/50 ML VIAL IV ONE (22:31)
[2022-08-06] MEDS ORDERED: carvediloL 3.125 MG TAB PO ONE (23:48)
[2022-08-07] MEDS ORDERED: hydrALAZINE HCL 20 MG/ML VIAL IV STA (01:06)
[2022-08-07] MEDS ORDERED: GLUCOSE 10 TAB/TUBE PO PRN (01:39)
[2022-08-07] MEDS ORDERED: CARBOHYDRATES FOR HYPOGLYCEMIA PO PRN (01:39)
[2022-08-07] MEDS ORDERED: GLUCOSE 40% GEL 15 GM TUBE PO PRN (01:39)
[2022-08-07] MEDS ORDERED: PROMETHAZINE HCL 12.5 MG in SODIUM CHLORIDE 0.9% 50 ML IV PRN (01:39)
[2022-08-07] MEDS ORDERED: GLUCAGON FOR INJ 1 MG VIAL SQ PRN (01:39)
[2022-08-07] MEDS ORDERED: DEXTROSE 50% 50 ML SYRINGE IV PRN (01:39)
[2022-08-07] MEDS ORDERED: ACETAMINOPHEN 325 MG TAB PO PRN (01:39)
[2022-08-07] MEDS ORDERED: traMADol HCL 50 MG TABLET PO PRN (01:39)
[2022-08-07] MEDS ORDERED: LANTUS PER UNIT CHARGE SQ SCH ×2 (01:39→21:00)
[2022-08-07] MEDS: INSULIN ASPART PER UNIT SC SCH ×5 (02:07→20:55)
[2022-08-07] MEDS ORDERED: LANTUS PER UNIT CHARGE SQ STA ×2 (04:15)
[2022-08-07] MEDS: hydrALAZINE TAB 50 MG TAB PO SCH ×2 (05:07→15:23)
[2022-08-07 05:45] LABS: Basophils # (auto) 0.05 K/uL (0-0.2); Basophils % (auto) 0.9 %; Eosinophils # (auto) 0.12 K/uL (0-0.50); Eosinophils % (auto) 2.3 %; Hematocrit (blood only) 32.7 % (42.0-52.0); Hemoglobin 10.9 g/dl (14.0-18.0); Immature Granulocytes # (auto) 0.01 K/uL (0.01-0.20); Immature Granulocytes % (auto) 0.2 %; Lymphocytes # (auto) 0.89 K/uL (1.2-3.4); Lymphocytes % (auto) 16.7 %; Mean Corpuscular Hemoglobin 29.3 pg (25.0-34.0); Mean Corpuscular Hgb Conc 33.3 g/dL (32.0-36.0); Mean Corpuscular Volume 87.9 fL (80.0-100.0); Mean Platelet Volume 10.5 fL (9.4-12.4); Monocytes # (auto) 0.51 K/uL (0.11-0.59); Monocytes % (auto) 9.6 %; Neutrophils # (auto) 3.75 K/uL (1.40-6.50); Neutrophils % (auto) 70.3 %; Platelet Count 212 K/uL (130-400); RDW Coefficient of Variation 13.2 % (11.5-14.5); RDW Standard Deviation 42.4 fL (36.4-46.3); Red Blood Count 3.72 M/uL (4.70-6.10); White Blood Count 5.33 K/ul (4.8-10.8)
[2022-08-07 06:01] LABS: BUN Creatinine Ratio 15.2 (10-20); Calcium 8.8 mg/dl (8.5-10.1); Creatinine Clr Calc Pharmacy 26.1 ml/min; Est GFR (African American) 21.3 ml/min; Est GFR (Non-African American) 18.4 ml/min; Potassium 4.2 mmol/L (3.5-5.1)
[2022-08-07 06:09] LABS: INR 3.2 (0.9-1.1); Prothrombin Time 31.6 Seconds (9.0-12.0); Troponin I High Sensitivity 28.5 pg/ml (0-20)
--- NOTE | 2022-08-07 07:34 | Ultrasound Report ---
US abdomen ltd ascites CLINICAL HISTORY: abd distension COMPARISON STUDY: None. FINDINGS: No ascites identified. IMPRESSION: No ascites. ACT 112: Negative or not required by law. Electronically signed by: Steve Peral M.D. 08/07/2022 7:32 AM
--- NOTE | 2022-08-07 07:36 | Ultrasound Report ---
ABDOMINAL ULTRASOUND, RIGHT UPPER QUADRANT HISTORY: anasarca, assess for liver disease. COMPARISON: None. FINDINGS: Pancreas: Obscured by overlying bowel gas. Liver: Unremarkable. Gallbladder: No gallbladder wall thickening. No gallstones. There is an 8 mm gallbladder polyp. CBD: 5 mm. Right kidney: No hydronephrosis. A 2.9 cm lower pole cyst. Miscellaneous: Small right pleural effusion. IMPRESSION: 1. Normal liver. 2. An 8 mm gallbladder polyp. Follow-up recommended to ensure stability. 3. Small right pleural effusion. ACT 112: Positive. There are findings on this exam that require communication between the performing entity and the patient following Patient Test Result Information Act ([place] Act 112) guidelines. Electronically signed by: Steve Pearl M.D. 08/07/2022 7:34 AM
[2022-08-07] MEDS: SERTRALINE HCL 100 MG TABLET PO SCH (08:50)
[2022-08-07] MEDS: GABAPENTIN 100 MG CAP PO SCH ×3 (08:51→20:57)
[2022-08-07] MEDS: carvediloL 3.125 MG TAB PO SCH ×2 (08:51→20:57)
[2022-08-07] MEDS ORDERED: hydrALAZINE TAB 50 MG TAB PO SCH (09:00)
--- NOTE | 2022-08-07 09:09 | Nephrology Consultation ---
Date of Consultation August 07, 2022 Assessment & Plan (1) Volume overload: * Diastolic CHF. Will begin Bumex 1 mg po qAM (had been on Furosemide 40 mg po daily as outpatient) * Low sodium diet * Monitor I&O, UO * Monitor PRP (2) Chronic kidney disease, stage 4 (severe): * CKD stage G4/A3 (advanced imparment). Baseline Cr has been 2.2-2.5 w/ EGFR 28 cc/min. Urine sediment has been acellular but UPCR > 4.0. Renal impairment has been attributed to DKD * Will order renal US * Will order serum and urine immunofixation (3) HTN (hypertension): * BP improved * Continue Carvedilol, Hydralazine * Bumex has been added this am History of Present Illness Reason for Consultation: GABY/CKD, hypertension, volume overload Attending Physician: Radu Morris MD History of Present Illness Mr. Desai is a 66year old male [facility] GABY/CKD, hypertension and volume overload. Medical records in the EMR were reviewed today and are summarized as follows: Mr. Desai has CKD stage G4/A3 (advanced imparment). Baseline Cr has been 2.2-2.5 w/ EGFR 28 cc/min. Urine sediment has been acellular but UPCR > 4.0. Renal impairment has been attributed to DKD. His primary Double End Tenoner Setter is Dr. Schafer. Mr. Desai's medical history is also significant for AODM, obesity, HTN, and h/o PE (warfarin). 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 He reports a low sodium diet but does eat lunch meat. Over the last 5 days Mr. Desai has noticed progressive LE swelling, abdominal distention and WILL. Recent echocardiogram revealed LVEF 45-50%, mild LVH, diastolic dysfunction and normal RV function. Mr. Desai is familiar w/ dialysis. His had been on IHD, underwent transplantation but from CHF 2020. Allergies Allergy/AdvReac Type Severity Reaction Status Date / Time atorvastatin AdvReac Intermediate muscle Verified 08/06/22 18:25 aches bupropion [From Wellbutrin] AdvReac Intermediate vivid Verified 08/06/22 18:25 dreams and hallucinations Kkebdqu-GEJ-UyW Reductase AdvReac Intermediate body aches Verified 08/06/22 18:25 Inhibitor [Tufspvm-Dvn-Lqp Reductase Inhibitor] Home Medications Medication Instructions Recorded Confirmed Type gabapentin 100 mg capsule 100 mg PO TID 03/26/20 08/06/22 History glipizide 10 mg tablet 10 mg PO DAILY 03/26/20 08/06/22 History hydralazine 50 mg tablet 50 mg PO TID 03/26/20 08/06/22 History liraglutide 0.6 mg/0.1 mL (18 mg/3 1.8 mg subcut DAILY 03/26/20 08/06/22 History mL) subcutaneous pen injector (Victoza 3-Sampson) warfarin 5 mg tablet 5 mg PO QPM 03/26/20 08/06/22 History atenolol 50 mg tablet 50 mg PO BID 05/21/21 08/06/22 History sertraline 100 mg tablet 100 mg PO DAILY 05/22/21 08/06/22 History furosemide 40 mg tablet (Lasix) 40 mg PO DAILY #90 tabs 07/02/22 08/06/22 Rx calcitriol 0.25 mcg capsule 0.25 mcg PO 3XWK 08/06/22 08/06/22 History fenofibrate micronized 43 mg 43 mg PO DAILY 08/06/22 08/06/22 History capsule Patient History Medical History Acute kidney injury Anemia due to chronic kidney disease Chronic kidney disease, stage 4 (severe) Depression, unspecified 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 HTN (hypertension) Hx pulmonary embolism Hyperkalemia Hyperlipidemia Obesity Postlaminectomy syndrome PVD (peripheral vascular disease) Right foot drop Stage 3b chronic kidney disease Statin intolerance Uncontrolled type 2 diabetes mellitus Vitamin D deficiency Surgical History History of back surgery History of hip surgery History of tonsillectomy Family History Brother Cancer Father Hypertension Diabetes Heart disease Dementia Mother Diabetes Social History Smoking Status: Former smoker Second Hand Exposure: No; Do You Dip or Chew Tobacco: No; Tobacco Cessation Education Requested by Patient: No Hx Alcohol Use: No Hx Substance Use: No Preferred Language: Persian Communication Ability: Effective 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 Required: No Beliefs That Will Affect Care: None Current Living Situation: Alone Current Living Situation Comment: Owns and lives in [place], daughter lives beside hit Other Information That Helps Us Care for You: No Feels Safe at Home: Yes Safety Concerns: Feels Safe At This Time Assistive Devices: Cane Review of Systems Constitutional: no fever Eyes: no problem reported Ear, Nose, Mouth, Throat: no problem reported Respiratory: no dyspnea Cardiovascular: no chest pain Gastrointestinal: no abdominal pain Genitourinary: no dysuria or no urinary hesitancy Neurologic: no confusion Physical Exam Constitutional: not in distress Eyes: PERRL, conjunctivae normal, anicteric sclerae ENMT: external ear and nose normal, oropharynx normal Neck: trachea midline, no thyromegaly Respiratory: normal respiratory effort, lungs clear to auscultation Cardiovascular: Rate/Rhythm: regular rate and regular rhythm Extremities: + edema (1+ pretibial pitting edema) Gastrointestinal (Abdomen): Inspection/Auscultation: + abdomen distended Percussion/Palpation: abdomen soft; abdomen nontender and no guarding Neurologic: Speech / Cognition: normal speech and normal cognition Results & Data ([facility]) Vital Signs (Past 12 Hours) Vital Signs Temp Pulse Pulse Resp BP BP BP 08/07/22 07:12 37.0 C 73 14 176/86 H 195/90 H 08/07/22 01:39 80 08/07/22 04:14 187/92 H 08/07/22 04:14 71 18 08/07/22 04:00 69 19 08/07/22 04:00 185/77 H 08/07/22 03:30 72 20 08/07/22 03:30 180/89 H 08/07/22 03:00 73 20 08/07/22 03:00 176/74 H 08/07/22 02:30 74 20 08/07/22 02:30 174/91 H 08/07/22 02:15 176/91 H 08/07/22 02:15 75 21 08/07/22 02:10 161/89 H 08/07/22 02:10 75 20 08/07/22 02:00 74 19 08/07/22 02:00 168/78 H 08/07/22 01:59 179/85 H 08/07/22 01:59 73 23 08/07/22 01:39 79 14 08/07/22 01:39 191/96 H 08/07/22 01:39 191/96 H 08/07/22 01:00 81 21 08/07/22 01:00 205/91 H 08/07/22 00:31 73 23 08/07/22 00:31 207/74 H 08/07/22 00:30 74 24 08/07/22 04:15 36.8 C 77 18 187/92 H 08/07/22 01:45 37.1 C 76 20 161/89 H 08/07/22 01:39 08/07/22 01:01 79 20 205/91 H 08/07/22 00:00 73 22 187/85 H 08/06/22 23:31 87 24 197/106 H 08/06/22 23:19 77 20 179/84 H 08/06/22 22:20 74 08/06/22 21:53 71 19 155/83 H Pulse Ox Pulse Ox O2 Del Method O2 Del Method 08/07/22 07:12 96 Room Air 08/07/22 01:39 08/07/22 04:14 08/07/22 04:14 08/07/22 04:00 08/07/22 04:00 08/07/22 03:30 08/07/22 03:30 08/07/22 03:00 08/07/22 03:00 08/07/22 02:30 08/07/22 02:30 08/07/22 02:15 08/07/22 02:15 08/07/22 02:10 08/07/22 02:10 94 08/07/22 02:00 95 08/07/22 02:00 08/07/22 01:59 08/07/22 01:59 95 08/07/22 01:39 95 08/07/22 01:39 08/07/22 01:39 08/07/22 01:00 95 08/07/22 01:00 08/07/22 00:31 94 08/07/22 00:31 08/07/22 00:30 94 08/07/22 04:15 95 Room Air 08/07/22 01:45 96 Room Air 08/07/22 01:39 96 Room Air 08/07/22 01:01 95 Room Air 08/07/22 00:00 94 08/06/22 23:31 08/06/22 23:19 95 08/06/22 22:20 08/06/22 21:53 95 Room Air Laboratory Results Laboratory Tests 05/22/21 08/06/22 08/06/22 15:22 16:51 16:51 WBC Hgb Hct Plt Count Sodium Potassium Chloride Carbon Dioxide BUN Creatinine Glucose Calcium Troponin I High Sens 25.0 H B-Natriuretic Peptide Albumin 3.5 TSH 2.312 Urine Color Urine Appearance Urine pH Ur Specific [place] Urine Protein Urine Glucose (UA) Urine Blood Urine RBC (Auto) Protein/Creatinin Ratio 4.0 H SARS-CoV-2, RNA, NAAT 08/06/22 08/06/22 08/06/22 16:51 18:46 20:15 WBC Hgb Hct Plt Count Sodium Potassium Chloride Carbon Dioxide BUN Creatinine Glucose Calcium Troponin I High Sens B-Natriuretic Peptide 815 H Albumin TSH Urine Color Yellow Urine Appearance Clear Urine pH 6.5 Ur Specific [place] 1.018 Urine Protein 3+ H Urine Glucose (UA) 3+ H Urine Blood 1+ H Urine RBC (Auto) 10-30 H Protein/Creatinin Ratio SARS-CoV-2, RNA, NAAT NEGATIVE 08/07/22 08/07/22 05:30 05:30 WBC 5.33 Hgb 10.9 L Hct 32.7 L Plt Count 212 Sodium 137 Potassium 4.2 Chloride 108 H Carbon Dioxide 22 BUN 50 H Creatinine 3.29 H Glucose 226 H Calcium 8.8 Troponin I High Sens 28.5 H B-Natriuretic Peptide Albumin TSH Urine Color Urine Appearance Urine pH Ur Specific [place] Urine Protein Urine Glucose (UA) Urine Blood Urine RBC (Auto) Protein/Creatinin Ratio SARS-CoV-2, RNA, NAAT PG Care Time/CCT Total # of Minutes Spent Total Time Spent with Patient: Total time spent is greater than 50% in coordination of care (as documented) at patient's floor/unit and/or counseling patient: Coding Level of Care Code INP/OBS CONSULT LVL 5, 80 MIN Diagnoses Volume overload E87.70 Chronic kidney disease, stage 4 (severe) N18.4 HTN (hypertension) I10
--- NOTE | 2022-08-07 09:26 | CT Scan Report ---
CT OF THE HEAD WITHOUT CONTRAST CLINICAL HISTORY: Headache, fall, coumadin COMPARISON STUDY: No previous studies for comparison. CT DOSE: 614.27 mGy.cm TECHNIQUE: Helical axial images of the head were obtained without IV contrast. Automated exposure con trol was utilized for the study. A dose lowering technique was utilized adhering to the principles o f ALARA. FINDINGS: No acute intracranial hemorrhage, midline shift or mass effect is present. The ventricular system is unremarkable. The basal cisterns are patent. No extra-axial collections are present. There are no findings to suggest acute dural sinus thrombosis or acute territorial infarct. No significant calvarial abnormalities are present. Visualized portions of the sinuses and mastoid air cells are akanksha ar. IMPRESSION: 1. No acute intracranial findings. 2. No acute calvarial fracture. ACT 112: Negative or not required by law. Electronically signed by: Kiran Franco M.D. 08/07/2022 9:24 AM
--- NOTE | 2022-08-07 09:28 | CT Scan Report ---
LEFT FOREARM CT CT DOSE: 274.03 mGy.cm HISTORY: Left forearm swelling/bruising TECHNIQUE: Multiaxial CT images of the left forearm were performed and reformatted in the sagittal an d coronal plane without the use of contrast. A dose lowering technique was utilized adhering to the principles of ALARA. COMPARISON: None. FINDINGS: No fracture or dislocation of the left forearm. No soft tissue hematoma identified. Vascula r calcifications are noted. Chondrocalcinosis and degenerative changes noted within the wrist. Mild d egenerative changes also noted within the elbow joint. IMPRESSION: No fracture or dislocation within the left forearm. ACT 112: Negative or not required by law. Electronically signed by: Steve Pearl M.D. 08/07/2022 9:26 AM
--- NOTE | 2022-08-07 09:47 | Electrocardiogram Report ---
Test Reason : Blood Pressure : / mmHG Vent. Rate : 071 BPM Atrial Rate : 071 BPM P-R Int : 182 ms QRS Dur : 094 ms QT Int : 412 ms P-R-T Axes : 048 012 127 degrees QTc Int : 447 ms Normal sinus rhythm Possible Left atrial enlargement Possible Anterior infarct , age undetermined Abnormal ECG No previous ECGs available Confirmed by Richard Mejias ([id number]) on 08/07/2022 9:46:36 AM Referred By: Mavis Schafer Confirmed By:Richard Mejias
[2022-08-07] MEDS: BUMETANIDE 1 MG TAB PO SCH (11:57)
[2022-08-07] MEDS: hydrALAZINE HCL 20 MG/ML VIAL IV PRN ×2 (15:43→19:31)
--- NOTE | 2022-08-07 15:58 | Hospitalist Progress Note ---
Date of Service August 07, 2022 Assessment & Plan (1) SOB (shortness of breath): Plan: Hypertensive urgency Atenolol changed to carvedilol 3.125 mg twice daily Hydralazine dose increased to 75 mg 3 times daily IV hydralazine as needed Nephrology on board Monitor Volume overload Likely multifactorial acute on chronic diastolic heart failure, CKD stage IV -CXR:No acute cardiopulmonary findings. Mild cardiomegaly. -ABD USD:No ascites. -Outpatient ECHO:EF: 45-50%, mild concentric LVH, abnormal diastolic dysfunction, normal right ventricular size and function, no intracardiac mass or thrombus identified -I's and O's, daily weight, fluid restriction Lasix changed to Bumex 1 mg daily Appreciate nephrology input Monitor volume status Supratherapeutic INR No bleeding issues Monitor INR 3.2 Hold Coumadin today Gallbladder polyp Incidental finding on ultrasound -Liver USD:Normal liver. An 8 mm gallbladder polyp. Follow-up recommended to ensure stability. Follow-up as outpatient DM II HbA1c 8.9 Hold home regimen Continue insulin while hospitalized Monitor BGS H/O PVD as per records Hyperlipidemia H/O statin intolerance H/O PE Coumadin on hold due to supratherapeutic INR Resume Coumadin as able Anxiety/mood disorder Continue home medications DVT Px: Supratherapeutic INR CODE STATUS Full code (2) Volume overload: (3) Chronic kidney disease, stage 4 (severe): (4) Uncontrolled type 2 diabetes mellitus: (5) Hx pulmonary embolism: (6) HTN (hypertension): (7) Hyperlipidemia: (8) Anemia due to chronic kidney disease: Plan: Assessment and plan per Dr. Blair. See addendum. Admission and Anticipated Discharge Date Admission Date: August 06, 2022 Subjective Patient is seen and examined at bedside Dyspnea better today Still has leg edema Denies any chest pain, dizziness, nausea, abdominal pain No other complaints Saturating well on room air Review of Systems Review of Systems: All systems reviewed & are unremarkable except as noted in Subjective Physical Exam Physical Exam: Physical Exam: Vitals signs as noted above General Appearance:Obese, no apparent distress Head: normocephalic, Atraumatic Eyes: normal inspection, EOMI Neck: supple, Trachea midline Respiratory/Chest: Normal breath sounds, mild basal crackles, No accessory muscle use Cardiovascular: S1, S2, No murmur Abdomen/GI:Soft, Non tender, Bowel sounds present Extremities/Musculoskeletal:normal inspection, 1+ pedal edema Neurologic/Psych:AAOX3, grossly no focal neurological deficits Skin: normal color, warm Results & Data Results & Data ([facility]) Vital Signs (Past 12 Hours) Vital Signs Temp Pulse Pulse Resp BP BP BP 08/07/22 15:28 36.6 C 70 18 212/105 H 08/07/22 15:26 71 08/07/22 12:00 71 08/07/22 11:54 36.7 C 67 18 162/84 H 08/07/22 08:00 71 08/07/22 07:12 37.0 C 73 14 176/86 H 195/90 H 08/07/22 04:14 187/92 H 08/07/22 04:14 71 18 08/07/22 04:00 69 19 08/07/22 04:00 185/77 H 08/07/22 04:15 36.8 C 77 18 187/92 H Pulse Ox O2 Del Method 08/07/22 15:28 96 Room Air 08/07/22 15:26 08/07/22 12:00 08/07/22 11:54 96 Room Air 08/07/22 08:00 08/07/22 07:12 96 Room Air 08/07/22 04:14 08/07/22 04:14 08/07/22 04:00 08/07/22 04:00 08/07/22 04:15 95 Room Air Laboratory Results Short CBC 08/06/22 08/07/22 Range/Units 16:51 05:30 WBC 6.44 5.33 (4.8-10.8) K/ul Hgb 11.8 L 10.9 L (14.0-18.0) g/dl Hct 35.6 L 32.7 L (42.0-52.0) % Plt Count 236 212 (130-400) K/uL BMP 08/06/22 08/06/22 08/07/22 16:51 18:46 05:30 Sodium 134 L 137 Potassium TNP 4.8 4.2 Chloride 108 H 108 H Carbon Dioxide 19 L 22 BUN 50 H 50 H Creatinine 3.18 H 3.29 H Glucose 243 H 226 H Calcium 8.7 8.8 Liver Function 08/06/22 08/06/22 Range/Units 16:51 18:46 Total Bilirubin 0.4 (0.2-1.0) mg/dl AST TNP 18 ALT 17 (7-52) U/L Alkaline Phosphatase 65 (34-104) U/L Albumin 3.5 (3.4-5.0) gm/dl Urine 08/06/22 Range/Units 20:15 Urine Color Yellow Urine Appearance Clear (Clear) Urine pH 6.5 (4.5-7.5) Ur Specific [place] 1.018 (1.000-1.030) Urine Protein 3+ H (Negative) Urine Glucose (UA) 3+ H (Negative)
[2022-08-07] MEDS: LANTUS PER UNIT CHARGE SQ SCH (20:55)
[2022-08-07] MEDS: hydrALAZINE HCL 25 MG TAB PO SCH (20:56)
[2022-08-08 05:39] LABS: Hematocrit (blood only) 36.1 % (42.0-52.0); Hemoglobin 12.2 g/dl (14.0-18.0); Mean Corpuscular Hemoglobin 29.6 pg (25.0-34.0); Mean Corpuscular Hgb Conc 33.8 g/dL (32.0-36.0); Mean Corpuscular Volume 87.6 fL (80.0-100.0); Platelet Count 231 K/uL (130-400); RDW Coefficient of Variation 13.2 % (11.5-14.5); RDW Standard Deviation 42.3 fL (36.4-46.3); Red Blood Count 4.12 M/uL (4.70-6.10); White Blood Count 6.55 K/ul (4.8-10.8)
[2022-08-08 05:50] LABS: INR 2.1 (0.9-1.1); Prothrombin Time 21.4 Seconds (9.0-12.0)
[2022-08-08 05:55] LABS: Calcium 8.7 mg/dl (8.5-10.1); Magnesium 1.9 mg/dl (1.7-2.4); Potassium 4.9 mmol/L (3.5-5.1)
[2022-08-08 06:01] LABS: BUN Creatinine Ratio 16.8 (10-20); Creatinine Clr Calc Pharmacy 24.4 ml/min; Est GFR (African American) 20.5 ml/min; Est GFR (Non-African American) 17.7 ml/min
[2022-08-08] MEDS: INSULIN ASPART PER UNIT SC SCH ×4 (07:47→20:34)
[2022-08-08] MEDS: BUMETANIDE 1 MG TAB PO SCH (07:48)
[2022-08-08] MEDS: SERTRALINE HCL 100 MG TABLET PO SCH (07:48)
[2022-08-08] MEDS: GABAPENTIN 100 MG CAP PO SCH ×3 (07:49→20:34)
[2022-08-08] MEDS: carvediloL 3.125 MG TAB PO SCH ×2 (07:49→20:34)
[2022-08-08] MEDS: hydrALAZINE HCL 25 MG TAB PO SCH (07:49)
--- NOTE | 2022-08-08 09:03 | Nephrology Progress Note ---
Date of Service August 08, 2022 Assessment & Plan (1) Volume overload: Plan: * Diastolic CHF. Patient is net -5L diuresis since admission. Weight has dropped 7kg. Patient is subjectively improved. Cr has remained relatively stable at ~ 3.3. Will continue diuresis * Continue Bumex 1 mg po qAM (had been on Furosemide 40 mg po daily as outpatient) * Low sodium diet * Monitor I&O, UO * Monitor PRP (2) Chronic kidney disease, stage 4 (severe): Plan: * CKD stage G4/A3 (advanced imparment). Baseline Cr has been 2.2-2.5 w/ EGFR 28 cc/min. Urine sediment has been acellular but UPCR > 4.0. Renal impairment has been attributed to DKD * Will order renal US * Serum and urine immunofixation - pending (3) HTN (hypertension): Plan: * BP improved * Continue Carvedilol, Hydralazine * Bumex was added yesterday Admission and Anticipated Discharge Date Admission Date: August 06, 2022 Subjective Mr. Desai was evaluated in his hospital room this morning. He reports brisk UO in response to oral Bumex therapy. He notes that his LE swelling and abdominal distention are markedly improved. Review of Systems Constitutional: no fever Eyes: no problem reported Ear, Nose, Mouth, Throat: no problem reported Respiratory: no dyspnea Cardiovascular: no chest pain Gastrointestinal: no abdominal pain Genitourinary: no dysuria or no urinary hesitancy Neurologic: no confusion Physical Exam Constitutional: not in distress Eyes: PERRL, conjunctivae normal, anicteric sclerae ENMT: external ear and nose normal, oropharynx normal Neck: trachea midline, no thyromegaly Respiratory: normal respiratory effort, lungs clear to auscultation Cardiovascular: Rate/Rhythm: regular rate and regular rhythm Extremities: + edema (trace pretibial pitting edema) Gastrointestinal (Abdomen): Inspection/Auscultation: + abdomen distended Percussion/Palpation: abdomen soft; abdomen nontender and no guarding Neurologic: Speech / Cognition: normal speech and normal cognition Results & Data ([facility]) Vital Signs (Past 12 Hours) Vital Signs Temp Pulse Pulse Resp BP Pulse Ox Pulse Ox 08/08/22 08:00 78 08/08/22 07:13 37.0 C 72 18 164/85 H 95 0226/23 02:39 36.5 C 72 18 166/89 H 95 08/08/22 00:00 78 08/08/22 00:00 95 08/07/22 23:14 37.5 C 75 18 153/76 H 93 O2 Del Method O2 Del Method 08/08/22 08:00 08/08/22 07:13 Room Air 08/08/22 02:39 Room Air 08/08/22 00:00 08/08/22 00:00 Room Air 08/07/22 23:14 Room Air Laboratory Results Laboratory Tests 08/08/22 08/08/22 05:31 05:31 WBC 6.55 Hgb 12.2 L Hct 36.1 L Plt Count 231 Sodium 136 Potassium 4.9 Chloride 108 H Carbon Dioxide 20 L BUN 57 H Creatinine 3.40 H Glucose 180 H Calcium 8.7 Magnesium 1.9 Laboratory Tests 08/07/22 08/08/22 13:10 05:31 Serum Immunofixation Pending Urine Immunofixation Pending PG Care Time/CCT Total # of Minutes Spent Total Time Spent with Patient: Total time spent is greater than 50% in coordination of care (as documented) at patient's floor/unit and/or counseling patient: Coding Level of Care Code 96452 SUB INP/OBS CARE 3/50MIN Diagnoses Volume overload E87.70 Chronic kidney disease, stage 4 (severe) N18.4 HTN (hypertension) I10
[2022-08-08] MEDS: hydrALAZINE TAB 50 MG TAB PO SCH ×2 (12:37→20:34)
--- NOTE | 2022-08-08 14:08 | Hospitalist Progress Note ---
Date of Service August 08, 2022 Assessment & Plan (1) SOB (shortness of breath): Plan: Hypertensive urgency Atenolol changed to carvedilol 3.125 mg twice daily Hydralazine dose increased to 100 mg 3 times daily Nephrology on board Monitor BP Volume overload Likely multifactorial acute on chronic diastolic heart failure, CKD stage IV -CXR:No acute cardiopulmonary findings. Mild cardiomegaly. -ABD USD:No ascites. -Outpatient ECHO:EF: 45-50%, mild concentric LVH, abnormal diastolic dysfunction, normal right ventricular size and function, no intracardiac mass or thrombus identified -High Protein/Cr ration on UA -I's and O's, daily weight, fluid restriction Lasix changed to Bumex 1 mg daily Appreciate nephrology input Monitor volume status Renal USD pending Serum and urine immunofixation pending Cr 3.4 today Supratherapeutic INR No bleeding issues Monitor INR 3.7>3.2>2.1 Resume Coumadin Gallbladder polyp Incidental finding on ultrasound -Liver USD:Normal liver. An 8 mm gallbladder polyp. Follow-up recommended to ensure stability. Follow-up as outpatient DM II HbA1c 8.9 Hold home regimen Continue insulin while hospitalized Monitor BGS H/O PVD as per records Hyperlipidemia H/O statin intolerance H/O PE Coumadin on hold due to supratherapeutic INR Resume Coumadin as able Anxiety/mood disorder Continue home medications DVT Px: Coumadin CODE STATUS Full code (2) Volume overload: (3) Chronic kidney disease, stage 4 (severe): (4) Uncontrolled type 2 diabetes mellitus: (5) Hx pulmonary embolism: (6) HTN (hypertension): (7) Hyperlipidemia: (8) Anemia due to chronic kidney disease: Plan: Assessment and plan per Dr. Blair. See addendum. Admission and Anticipated Discharge Date Admission Date: August 06, 2022 Subjective Patient is seen and examined at bedside States having headache earlier, improving Leg swelling improving as well Blood pressure elevated Dyspnea continues to improve Denies any chest pain, dizziness, nausea, abdominal pain Review of Systems Review of Systems: All systems reviewed & are unremarkable except as noted in Subjective Physical Exam Physical Exam: Physical Exam: Vitals signs as noted above General Appearance:Obese, no apparent distress Head: normocephalic, Atraumatic Eyes: normal inspection, EOMI Neck: supple, Trachea midline Respiratory/Chest: Normal breath sounds, mild basal crackles, No accessory muscle use Cardiovascular: S1, S2, No murmur Abdomen/GI:Soft, Non tender, Bowel sounds present Extremities/Musculoskeletal:normal inspection, 1+ pedal edema Neurologic/Psych:AAOX3, grossly no focal neurological deficits Skin: normal color, warm Results & Data Results & Data ([facility]) Vital Signs (Past 12 Hours) Vital Signs Temp Pulse Pulse Resp BP Pulse Ox O2 Del Method 08/08/22 12:45 78 08/08/22 11:59 36.9 C 68 18 146/105 H 94 Room Air 08/08/22 08:00 78 08/08/22 07:13 37.0 C 72 18 164/85 H 95 Room Air 08/08/22 02:39 36.5 C 72 18 166/89 H 95 Room Air Laboratory Results Short CBC 08/08/22 Range/Units 05:31 WBC 6.55 (4.8-10.8) K/ul Hgb 12.2 L (14.0-18.0) g/dl Hct 36.1 L (42.0-52.0) % Plt Count 231 (130-400) K/uL BMP 08/08/22 05:31 Sodium 136 Potassium 4.9 Chloride 108 H Carbon Dioxide 20 L BUN 57 H Creatinine 3.40 H Glucose 180 H Calcium 8.7
[2022-08-08] MEDS ORDERED: WARFARIN SOD 5 MG TAB PO SCH (16:00)
--- NOTE | 2022-08-08 17:58 | Ultrasound Report ---
RENAL ULTRASOUND HISTORY: Acute kidney injury on chronic kidney disease. COMPARISON: None. FINDINGS: Right kidney: 11.6 cm. A 3.4 cm lower pole cyst. Trace perinephric edema/fluid. No hydronephrosis. Mi ld increased cortical echogenicity. There is mild cortical thinning/scarring. Left kidney: 11.1 cm. Possible 1.7 cm hypoechoic lesion. Trace perinephric edema/fluid No hydronephro sis. Mild increased cortical echogenicity is noted. Bladder: No bladder wall thickening. The bilateral ureteral jets were identified. IMPRESSION: 1. No hydronephrosis. 2. Trace bilateral perinephric edema/fluid. 3. Slight increased cortical echogenicity suggestive of medical renal disease. 4. Questionable 1.7 cm hypoechoic lesion within the left kidney. This may represent the normal cortic al lobulation. Follow-up nonemergent dedicated MRI or CT of the kidneys can be performed for further evaluation ACT 112: Negative or not required by law. Electronically signed by: Steve Pearl M.D. 08/08/2022 5:56 PM
[2022-08-08] MEDS: LANTUS PER UNIT CHARGE SQ SCH (20:35)
[2022-08-09 06:35] LABS: BUN Creatinine Ratio 17.1 (10-20); Calcium 9.3 mg/dl (8.5-10.1); Est GFR (African American) 18.2 ml/min; Est GFR (Non-African American) 15.7 ml/min; Potassium 4.6 mmol/L (3.5-5.1)
[2022-08-09 06:46] LABS: INR 1.7 (0.9-1.1)
[2022-08-09] MEDS: INSULIN ASPART PER UNIT SC SCH ×4 (08:19→20:56)
[2022-08-09] MEDS: SERTRALINE HCL 100 MG TABLET PO SCH (08:23)
[2022-08-09] MEDS: hydrALAZINE TAB 50 MG TAB PO SCH ×3 (08:24→21:01)
[2022-08-09] MEDS: GABAPENTIN 100 MG CAP PO SCH ×3 (08:25→21:02)
[2022-08-09] MEDS: carvediloL 3.125 MG TAB PO SCH ×2 (08:26→21:02)
[2022-08-09] MEDS: BUMETANIDE 1 MG TAB PO SCH (08:26)
--- NOTE | 2022-08-09 08:32 | Nephrology Progress Note ---
Date of Service August 09, 2022 Assessment & Plan (1) Volume overload: Plan: * Diastolic CHF. Patient is net -6.5L diuresis since admission. Weight has dropped 7kg. Patient is subjectively improved. Cr has risen to 3.7 with diuresis. May need for a higher Cr in order to correct diastolic CHF and allow patient to remain functional * Will reduce Bumex to 0.5 mg po qAM (had been on Furosemide 40 mg po daily as outpatient) * Low sodium diet * Monitor I&O, UO * Monitor PRP (2) Chronic kidney disease, stage 4 (severe): Plan: * CKD stage G4/A3 (advanced imparment). Baseline Cr has been 2.2-2.5 w/ EGFR 28 cc/min. Urine sediment has been acellular but UPCR > 4.0. Renal impairment has been attributed to DKD * 08/08/22 Renal US - R 11.6 cm, L 11.1 cm. No hydro * Serum and urine immunofixation - pending (3) HTN (hypertension): Plan: * BP improved * Continue Carvedilol, Hydralazine, Bumex Admission and Anticipated Discharge Date Admission Date: August 06, 2022 Subjective Mr. Desai was evaluated in his hospital room this morning. He reports brisk UO in response to oral Bumex therapy. He notes that his LE swelling and abdominal distention are markedly improved. Review of Systems Constitutional: no fever Eyes: no problem reported Ear, Nose, Mouth, Throat: no problem reported Respiratory: no dyspnea Cardiovascular: no chest pain Gastrointestinal: no abdominal pain Genitourinary: no dysuria or no urinary hesitancy Neurologic: no confusion Physical Exam Constitutional: not in distress Eyes: PERRL, conjunctivae normal, anicteric sclerae ENMT: external ear and nose normal, oropharynx normal Neck: trachea midline, no thyromegaly Respiratory: normal respiratory effort, lungs clear to auscultation Cardiovascular: Rate/Rhythm: regular rate and regular rhythm Extremities: + edema (trace pretibial pitting edema) Gastrointestinal (Abdomen): Inspection/Auscultation: + abdomen distended (but improved) Percussion/Palpation: abdomen soft; abdomen nontender and no guarding Neurologic: Speech / Cognition: normal speech and normal cognition Results & Data ([facility]) Vital Signs (Past 12 Hours) Vital Signs Temp Pulse Pulse Resp BP BP Pulse Ox 08/09/22 07:39 36.8 C 73 21 180/83 H 98 08/09/22 03:48 79 18 162/86 H 96 08/08/22 22:00 75 08/08/22 22:52 76 19 140/73 96 O2 Del Method 08/09/22 07:39 Room Air 08/09/22 03:48 Room Air 08/08/22 22:00 08/08/22 22:52 Room Air Laboratory Results Laboratory Tests 08/09/22 05:49 Sodium 135 L Potassium 4.6 Chloride 106 Carbon Dioxide 21 BUN 64 H Creatinine 3.75 H D Glucose 165 H Calcium 9.3 Diagnostic Findings 08/08/22 Renal US: R 11.6 cm. A 3.4 cm lower pole cyst. Trace perinephric edema/fluid. No hydronephrosis. Mild increased cortical echogenicity. There is mild cortical thinning/scarring. L 11.1 cm. Possible 1.7 cm hypoechoic lesion. Trace perinephric edema/fluid No hydronephrosis. Mild increased cortical echogenicity is noted. No bladder wall thickening. The bilateral ureteral jets were identified. PG Care Time/CCT Total # of Minutes Spent Total Time Spent with Patient: Total time spent is greater than 50% in coordination of care (as documented) at patient's floor/unit and/or counseling patient: Coding Level of Care Code 20459 SUB INP/OBS CARE 3/50MIN Diagnoses Volume overload E87.70 Chronic kidney disease, stage 4 (severe) N18.4 HTN (hypertension) I10
[2022-08-09] MEDS ORDERED: CALCITRIOL 0.25 MCG CAPSULE PO SCH (09:00)
[2022-08-09] MEDS ORDERED: WARFARIN SOD 7.5 MG TAB PO SCH (16:00)
--- NOTE | 2022-08-09 16:10 | Hospitalist Progress Note ---
Date of Service August 09, 2022 Assessment & Plan (1) SOB (shortness of breath): Plan: Hypertensive urgency Atenolol changed to carvedilol 3.125 mg twice daily Hydralazine dose increased to 100 mg 3 times daily Nephrology on board BP better today Volume overload Likely multifactorial acute on chronic diastolic heart failure, CKD stage IV -CXR:No acute cardiopulmonary findings. Mild cardiomegaly. -ABD USD:No ascites. -Outpatient ECHO:EF: 45-50%, mild concentric LVH, abnormal diastolic dysfunction, normal right ventricular size and function, no intracardiac mass or thrombus identified -Renal USD:No hydronephrosis. Trace bilateral perinephric edema/fluid. Slight increased cortical echogenicity suggestive of medical renal disease. Questionable 1.7 cm hypoechoic lesion within the left kidney. This may represent the normal cortical lobulation. Follow-up nonemergent dedicated MRI or CT of the kidneys can be performed for further evaluation -High Protein/Cr ration on UA -I's and O's, daily weight, fluid restriction Lasix changed to Bumex Appreciate nephrology input Monitor volume status Serum and urine immunofixation pending Cr 3.7 today Bumex dose decreased 2.5 mg daily Left kidney lesion Incidental finding on renal ultrasound Follow-up as outpatient Supratherapeutic INR now subtherapeutic No bleeding issues Monitor INR 3.7>3.2>2.1>1.7 Resumed Coumadin Will give 7.5 mg Coumadin today Gallbladder polyp Incidental finding on ultrasound -Liver USD:Normal liver. An 8 mm gallbladder polyp. Follow-up recommended to ensure stability. Follow-up as outpatient DM II HbA1c 8.9 Hold home regimen Continue insulin while hospitalized Monitor BGS H/O PVD as per records Hyperlipidemia H/O statin intolerance H/O PE Coumadin initially held due to supratherapeutic INR Continue Coumadin Anxiety/mood disorder Continue home medications DVT Px: Coumadin CODE STATUS Full code (2) Volume overload: (3) Chronic kidney disease, stage 4 (severe): (4) Uncontrolled type 2 diabetes mellitus: (5) Hx pulmonary embolism: (6) HTN (hypertension): (7) Hyperlipidemia: (8) Anemia due to chronic kidney disease: Plan: Assessment and plan per Dr. Blair. See addendum. Admission and Anticipated Discharge Date Admission Date: August 06, 2022 Subjective Patient is seen and examined at bedside States feeling much better today Headache resolved Minimal dyspnea on exertion but otherwise no complaints Leg edema improving Denies any chest pain, dizziness, nausea, abdominal pain Review of Systems Review of Systems: All systems reviewed & are unremarkable except as noted in Subjective Physical Exam Physical Exam: Physical Exam: Vitals signs as noted above General Appearance:Obese, no apparent distress Head: normocephalic, Atraumatic Eyes: normal inspection, EOMI Neck: supple, Trachea midline Respiratory/Chest: Normal breath sounds, mild basal crackles, No accessory muscle use Cardiovascular: S1, S2, No murmur Abdomen/GI:Soft, Non tender, Bowel sounds present Extremities/Musculoskeletal:normal inspection, 1+ pedal edema Neurologic/Psych:AAOX3, grossly no focal neurological deficits Skin: normal color, warm Results & Data Results & Data ([facility]) Vital Signs (Past 12 Hours) Vital Signs Temp Pulse Resp BP Pulse Ox O2 Del Method 08/09/22 11:23 37.0 C 72 18 151/82 H 95 Room Air 08/09/22 07:39 36.8 C 73 21 180/83 H 98 Room Air Laboratory Results [facility] 08/09/22 05:49 Sodium 135 L Potassium 4.6 Chloride 106 Carbon Dioxide 21 BUN 64 H Creatinine 3.75 H D Glucose 165 H Calcium 9.3
[2022-08-09] MEDS: LANTUS PER UNIT CHARGE SQ SCH (20:57)
[2022-08-10 07:31] LABS: BUN Creatinine Ratio 18.4 (10-20); Calcium 8.9 mg/dl (8.5-10.1); Creatinine Clr Calc Pharmacy 22.1 ml/min; Est GFR (African American) 18.2 ml/min; Est GFR (Non-African American) 15.7 ml/min; Potassium 4.4 mmol/L (3.5-5.1)
[2022-08-10 07:39] LABS: INR 2.5 (0.9-1.1)
[2022-08-10] MEDS: hydrALAZINE TAB 50 MG TAB PO SCH ×2 (08:08→13:56)
[2022-08-10] MEDS: GABAPENTIN 100 MG CAP PO SCH ×2 (08:08→13:56)
[2022-08-10] MEDS: carvediloL 3.125 MG TAB PO SCH (08:08)
[2022-08-10] MEDS: SERTRALINE HCL 100 MG TABLET PO SCH (08:08)
[2022-08-10] MEDS: INSULIN ASPART PER UNIT SC SCH ×2 (08:19→12:08)
--- NOTE | 2022-08-10 08:25 | Nephrology Progress Note ---
Date of Service August 10, 2022 Assessment & Plan (1) Volume overload: Plan: * Diastolic CHF. Patient is net -8 L diuresis since admission. Weight has dropped 7kg. Patient is subjectively improved. Cr has risen and stabilized at 3.7 with diuresis. Will need to accept higher Cr in order to correct diastolic CHF and allow patient to remain functional * Continue Bumex 0.5 mg po qAM * Low sodium diet reviewed in detail w/ patient today. Advised avoiding prepac kaged food and lunch meat * Monitor I&O, UO * Monitor PRP * If discharge is anticipated, Mr. Desai is scheduled for outpatient Nephrology follow up w/ Dr. cShafer this Tuesday (2) Chronic kidney disease, stage 4 (severe): Plan: * CKD stage G4/A3 (advanced imparment). Baseline Cr has now risen to 3.7 w/ EGFR 16 cc/min. Urine sediment has been acellular but UPCR > 4.0. Renal impairment has been attributed to DKD * 08/08/22 Renal US - R 11.6 cm, L 11.1 cm. No hydro * Serum and urine immunofixation - pending (3) HTN (hypertension): Plan: * BP improved * Continue Carvedilol, Hydralazine, Bumex Admission and Anticipated Discharge Date Admission Date: August 06, 2022 Subjective Mr. Desai was evaluated in his hospital room this morning. His LE swelling and abdominal distention are subjectively improved. He has been able to ambulate without difficulty Review of Systems Constitutional: no fever Eyes: no problem reported Ear, Nose, Mouth, Throat: no problem reported Respiratory: no dyspnea Cardiovascular: no chest pain Gastrointestinal: no abdominal pain Genitourinary: no dysuria or no urinary hesitancy Neurologic: no confusion Physical Exam Constitutional: not in distress Eyes: PERRL, conjunctivae normal, anicteric sclerae ENMT: external ear and nose normal, oropharynx normal Neck: trachea midline, no thyromegaly Respiratory: normal respiratory effort, lungs clear to auscultation Cardiovascular: Rate/Rhythm: regular rate and regular rhythm Extremities: no edema Gastrointestinal (Abdomen): Inspection/Auscultation: abdomen not distended Percussion/Palpation: abdomen soft; abdomen nontender and no guarding Neurologic: Speech / Cognition: normal speech and normal cognition Results & Data ([facility]) Vital Signs (Past 12 Hours) Vital Signs Temp Pulse Pulse Resp BP BP Pulse Ox 08/10/22 07:20 36.8 C 76 18 167/81 H 95 08/10/22 04:03 66 19 142/68 H 95 08/09/22 22:02 73 08/09/22 23:00 36.7 C 72 19 154/68 H 95 O2 Del Method 08/10/22 07:20 Room Air 08/10/22 04:03 Room Air 08/09/22 22:02 08/09/22 23:00 Room Air Laboratory Results Laboratory Tests 05/22/21 06/15/21 08/06/22 14:58 14:30 16:51 Sodium Potassium Chloride Carbon Dioxide BUN Creatinine 2.92 H 3.16 H 3.18 H Glucose 08/08/22 08/09/22 08/10/22 05:31 05:49 06:38 Sodium 135 L Potassium 4.4 Chloride 106 Carbon Dioxide 21 BUN 69 H Creatinine 3.40 H 3.75 H D 3.75 H Glucose 155 H Laboratory Tests 08/07/22 08/08/22 13:10 05:31 Serum Immunofixation Pending Urine Immunofixation Pending PG Care Time/CCT Total # of Minutes Spent Total Time Spent with Patient: Total time spent is greater than 50% in coordination of care (as documented) at patient's floor/unit and/or counseling patient: Coding Level of Care Code 43898 SUB INP/OBS CARE 3/50MIN Diagnoses Volume overload E87.70 Chronic kidney disease, stage 4 (severe) N18.4 HTN (hypertension) I10
[2022-08-10] MEDS ORDERED: BUMETANIDE 1 MG TAB PO SCH (09:00)
--- NOTE | 2022-08-10 13:07 | Hospitalist Progress Note ---
Date of Service August 10, 2022 Assessment & Plan (1) SOB (shortness of breath): Plan: Hypertensive urgency Atenolol changed to carvedilol 3.125 mg twice daily Hydralazine dose increased to 100 mg 3 times daily Nephrology on board Continue current medications Volume overload Likely multifactorial acute on chronic diastolic heart failure, CKD stage IV -CXR:No acute cardiopulmonary findings. Mild cardiomegaly. -ABD USD:No ascites. -Outpatient ECHO:EF: 45-50%, mild concentric LVH, abnormal diastolic dysfunction, normal right ventricular size and function, no intracardiac mass or thrombus identified -Renal USD:No hydronephrosis. Trace bilateral perinephric edema/fluid. Slight increased cortical echogenicity suggestive of medical renal disease. Questionable 1.7 cm hypoechoic lesion within the left kidney. This may represent the normal cortical lobulation. Follow-up nonemergent dedicated MRI or CT of the kidneys can be performed for further evaluation -High Protein/Cr ration on UA -I's and O's, daily weight, fluid restriction Lasix changed to Bumex Appreciate nephrology input Monitor volume status Serum and urine immunofixation pending Cr 3.7 today Bumex dose decreased 2.5 mg daily Discussed with nephrology today/l okay to discharge home, follow-up with Dr. Schafer on Tuesday. Left kidney lesion Incidental finding on renal ultrasound Follow-up as outpatient Supratherapeutic INR now subtherapeutic No bleeding issues Monitor INR 3.7>3.2>2.1>1.7>2.5 Continue Coumadin Gallbladder polyp Incidental finding on ultrasound -Liver USD:Normal liver. An 8 mm gallbladder polyp. Follow-up recommended to ensure stability. Follow-up as outpatient DM II HbA1c 8.9 Hold home regimen Continue insulin while hospitalized Monitor BGS H/O PVD as per records Hyperlipidemia H/O statin intolerance H/O PE Coumadin initially held due to supratherapeutic INR Continue Coumadin Anxiety/mood disorder Continue home medications DVT Px: Coumadin CODE STATUS Full code (2) Volume overload: (3) Chronic kidney disease, stage 4 (severe): (4) Uncontrolled type 2 diabetes mellitus: (5) Hx pulmonary embolism: (6) HTN (hypertension): (7) Hyperlipidemia: (8) Anemia due to chronic kidney disease: Plan: Assessment and plan per Dr. Blair. See addendum. Admission and Anticipated Discharge Date Admission Date: August 06, 2022 Subjective Patient is seen and examined at bedside Doing well No new complaints Dyspnea improved Less Leg edema Denies any chest pain, dizziness, nausea, abdominal pain Review of Systems Review of Systems: All systems reviewed & are unremarkable except as noted in Subjective Physical Exam Physical Exam: Physical Exam: Vitals signs as noted above General Appearance:Obese, no apparent distress Head: normocephalic, Atraumatic Eyes: normal inspection, EOMI Neck: supple, Trachea midline Respiratory/Chest: Normal breath sounds, CTA , No accessory muscle use Cardiovascular: S1, S2, No murmur Abdomen/GI:Soft, Non tender, Bowel sounds present Extremities/Musculoskeletal:normal inspection, 1+ pedal edema Neurologic/Psych:AAOX3, grossly no focal neurological deficits Skin: normal color, warm Results & Data Results & Data ([facility]) Vital Signs (Past 12 Hours) Vital Signs Temp Pulse Pulse Resp BP Pulse Ox O2 Del Method 08/10/22 11:10 36.7 C 73 14 178/94 H 91 Room Air 08/10/22 08:40 71 08/10/22 07:20 36.8 C 76 18 167/81 H 95 Room Air 08/10/22 04:03 66 19 142/68 H 95 Room Air Laboratory Results [facility] 08/10/22 06:38 Sodium 135 L Potassium 4.4 Chloride 106 Carbon Dioxide 21 BUN 69 H Creatinine 3.75 H Glucose 155 H Calcium 8.9
--- NOTE | 2022-08-10 13:21 | Discharge Summary ---
Date of Service August 10, 2022 Admission HPI Per Admitting Provider Patient is 66-year-old male with PMH CKD IV, DM II, HTN, HLD, anemia chronic disease, history of PE anticoagulated on warfarin presented to ER with complaint of increased exertional SOB x 5 days. Also noticed increased BLE edema and abdominal girth. Denies CP. Also reports intermittent nausea and vomiting the past couple weeks. States has vomited 1-2 episodes a week over the past month. Did not take medications today as he felt nauseated and did not want to vomit them up. Also reports past 2 days has had a couple episodes of loose stool. He has taken Pepto-Bismol with relief. Denies any abdominal pain. Patient denies any known history of liver disease. Follows with cardiology, Dr Cam[place] in [place]. Seen there today. Today had limited echo and brought "echo report: EF: 45- 50%, mild concentric LVH, abnormal diastolic dysfunction, normal right ventricular size and function, no intracardiac mass or thrombus identified." [employer] Supervisor is Dr Schafer and was referred to ER today. Denies fever/chills, diaphoresis, hematemesis, hematochezia, melena, [place], dizziness, syncope, vision changes, neck pain, orthopnea, palpitations, cough, sore throat, choking, otalgia, rhinorrhea, paresthesias, extremity weakness, rashes, dysuria, hematuria, urinary frequency. Admission Exam Per Admitting Provider General: no distress, obese Head: normocephalic, atraumatic Eyes: conjunctiva non-injected, anicteric ENT: normal inspection external ears, nose, mucous membranes moist Neck: supple, trachea midline Lungs: clear, no respiratory distress, no wheezing/rhonchi/rales CV: RRR, no murmur Abd: +distendend, normal BS, soft, non-tender Ext: no cyanosis, no calf tenderness; R>L edema, +2 pitting edema BLE Neuro: A&O x 3, no focal deficits noted, normal affect Skin: warm, dry Principal Diagnosis Hypertensive urgency Acute on chronic diastolic heart failure CKD stage IV Left kidney lesion Gallbladder polyp Supratherapeutic INR Discharge Data Allergies Allergy/AdvReac Type Severity Reaction Status Date / Time atorvastatin AdvReac Intermediate muscle Verified 08/06/22 18:25 aches bupropion [From Wellbutrin] AdvReac Intermediate vivid Verified 08/06/22 18:25 dreams and hallucinations [id number]-[id number]-CpO Reductase AdvReac Intermediate body aches Verified 08/06/22 18:25 Inhibitor [Dmlmuke-Ipa-Gsl Reductase Inhibitor] Consultations 08/06/22 20:48 ED Decision to Admit Stat 08/07/22 01:39 Consult Nephrology Routine Procedures Performed Laboratory Results WBC 6.55 K/ul (4.8-10.8) 08/08/22 05:31 RBC 4.12 M/uL (4.70-6.10) L 08/08/22 05:31 Hgb 12.2 g/dl (14.0-18.0) L 08/08/22 05:31 Hct 36.1 % (42.0-52.0) L 08/08/22 05:31 MCV 87.6 fL (80.0-100.0) 08/08/22 05:31 MCH 29.6 pg (25.0-34.0) 08/08/22 05:31 MCHC 33.8 g/dL (32.0-36.0) 08/08/22 05:31 RDW Std Deviation 42.3 fL (36.4-46.3) 08/08/22 05:31 RDW Coeff of Severiano 13.2 % (11.5-14.5) 08/08/22 05:31 Plt Count 231 K/uL (130-400) 08/08/22 05:31 MPV 10.0 fL (9.4-12.4) 08/08/22 05:31 Immature Gran % (Auto) 0.2 % 08/07/22 05:30 Neut % (Auto) 70.3 % 08/07/22 05:30 Lymph % (Auto) 16.7 % 08/07/22 05:30 [place] % (Auto) 9.6 % 08/07/22 05:30 Eos % (Auto) 2.3 % 08/07/22 05:30 Baso % (Auto) 0.9 % 08/07/22 05:30 Neut # (Auto) 3.75 K/uL (1.40-6.50) 08/07/22 05:30 Lymph # (Auto) 0.89 K/uL (1.2-3.4) L 08/07/22 05:30 [place] # (Auto) 0.51 K/uL (0.11-0.59) 08/07/22 05:30 Eos # (Auto) 0.12 K/uL (0-0.50) 08/07/22 05:30 Baso # (Auto) 0.05 K/uL (0-0.2) 08/07/22 05:30 Immature Gran # (Auto) 0.01 K/uL (0.01-0.20) 08/07/22 05:30 PT 25.0 Seconds (9.0-12.0) H 08/10/22 06:38 INR 2.5 (0.9-1.1) H 08/10/22 06:38 APTT 60.5 Seconds (21.0-31.0) H* 08/06/22 18:46 PTT Ratio 2.2 08/06/22 18:46 D-Dimer 230 ug/L FEU (0-500) 08/06/22 18:46 Sodium 135 mmol/L (136-145) L 08/10/22 06:38 Potassium 4.4 mmol/L (3.5-5.1) 08/10/22 06:38 Chloride 106 mmol/L (98-107) 08/10/22 06:38 Carbon Dioxide 21 mmol/L (21-32) 08/10/22 06:38 Anion Gap 8 (3-11) 08/10/22 06:38 BUN 69 mg/dl (6-23) H 08/10/22 06:38 Creatinine 3.75 mg/dl (0.6-1.4) H 08/10/22 06:38 Est Cr Clr Drug Dosing 22.1 ml/min 08/10/22 06:38 Est GFR ( Amer) 18.2 ml/min 08/10/22 06:38 Est GFR (Non-Af Amer) 15.7 ml/min 08/10/22 06:38 BUN/Creatinine Ratio 18.4 (10-20) 08/10/22 06:38 Glucose 155 mg/dl (70-99(Fasting)) H 08/10/22 06:38 POC Glucose 234 mg/dl (70-99) H 08/10/22 11:25 Estimat Average Glucose 209 mg/dl 08/06/22 16:51 Hemoglobin A1c 8.9 % (4.5-5.6) H 08/06/22 16:51 Calcium 8.9 mg/dl (8.5-10.1) 08/10/22 06:38 Magnesium 1.9 mg/dl (1.7-2.4) 08/08/22 05:31 Total Bilirubin 0.4 mg/dl (0.2-1.0) 08/06/22 16:51 AST 18 U/L (13-39) 08/06/22 18:46 ALT 17 U/L (7-52) 08/06/22 16:51 Alkaline Phosphatase 65 U/L (34-104) 08/06/22 16:51 Troponin I High Sens 28.5 pg/ml (0-20) H 08/07/22 05:30 B-Natriuretic Peptide 815 pg/ml (0-100) H 08/06/22 18:46 Total Protein 6.7 gm/dl (6.0-8.3) 08/06/22 16:51 Albumin 3.5 gm/dl (3.4-5.0) 08/06/22 16:51 Globulin 3.2 gm/dl (2.5-4.0) 08/06/22 16:51 Albumin/Globulin Ratio 1.1 (0.9-2) 08/06/22 16:51 TSH 2.312 uIu/ml (0.300-4.500) 08/06/22 16:51 Urine Color Yellow 08/06/22 20:15 Urine Appearance Clear (Clear) 08/06/22 20:15 Urine pH 6.5 (4.5-7.5) 08/06/22 20:15 Ur Specific [place] 1.018 (1.000-1.030) 08/06/22 20:15 Urine Protein 3+ (Negative) H 08/06/22 20:15 Urine Glucose (UA) 3+ (Negative) H 08/06/22 20:15 Urine Ketones Negative (Negative) 08/06/22 20:15 Urine Blood 1+ (Negative) H 08/06/22 20:15 Urine Nitrite Negative (Negative) 08/06/22 20:15 Urine Bilirubin Negative (Negative) 08/06/22 20:15 Urine Urobilinogen Negative (Negative) 08/06/22 20:15 Ur Leukocyte Esterase Negative (Negative) 08/06/22 20:15 Urine WBC (Auto) 1-5 /hpf (0-5) 08/06/22 20:15 Urine RBC (Auto) 10-30 /hpf (0-4) H 08/06/22 20:15 U Hyaline Cast (Auto) 0 /lpf (0-5) 08/06/22 20:15 U Epithel Cells (Auto) 10-20 /lpf (0-5) H 08/06/22 20:15 Urine Bacteria (Auto) Negative (Negative) 08/06/22 20:15 SARS-CoV-2, RNA, NAAT NEGATIVE (NEGATIVE) 08/06/22 16:51 Impressions Chest X-Ray 08/06/22 16:46 XR chest 1V portable CLINICAL HISTORY: Dyspnea COMPARISON STUDY: Chest radiograph March 20, 2017. FINDINGS: Lung volumes are normal. No pneumothorax or pleural effusion is present. There is no consolidation to suggest pneumonia. There is mild cardiomegaly without evidence for pulmonary edema. Several old left-sided rib fractures are incidentally noted. IMPRESSION: No acute cardiopulmonary findings. Mild cardiomegaly. ACT 112: Negative or not required by law. Electronically signed by: Kiran Franco M.D. 08/06/2022 5:[address] 08/06/22 22:[address] DOSE: 274.03 mGy.cm HISTORY: Left forearm swelling/bruising TECHNIQUE: Multiaxial CT images of the left forearm were performed and reform atted in the sagittal and coronal plane without the use of contrast. A dose lowering technique was utilized adhering to the principles of ALARA. COMPARISON: None. FINDINGS: No fracture or dislocation of the left forearm. No soft tissue hematoma identified. Vascular calcifications are noted. Chondrocalcinosis and degenerative changes noted within the wrist. Mild degenerative changes also note d within the elbow joint. IMPRESSION: No fracture or dislocation within the left forearm. ACT 112: Negative or not required by law. Electronically signed by: Steve Pearl M.D. 08/07/2022 9:[address] 08/06/22 22:27 CT OF THE HEAD WITHOUT CONTRAST CLINICAL HISTORY: Headache, fall, coumadin COMPARISON STUDY: No previous studies for comparison. CT DOSE: 614.27 mGy.cm TECHNIQUE: Helical axial images of the head were obtained without IV contrast. Automated exposure control was utilized for the study. A dose lowering technique was utilized adhering to the principles of ALARA. FINDINGS: No acute intracranial hemorrhage, midline shift or mass effect is present. The ventricular system is unremarkable. The basal cisterns are patent. No extra-axial collections are present. There are no findings to suggest acute dural sinus thrombosis or acute territorial infarct. No significant calvarial abnormalities are present. Visualized portions of the sinuses and mastoid air cells are clear. IMPRESSION: 1. No acute intracranial findings. 2. No acute calvarial fracture. ACT 112: Negative or not required by law. Electronically signed by: Kiran Franco M.D. 08/07/2022 9:24 AM Abdomen Ultrasound 08/07/22 00:00 US abdomen ltd ascites CLINICAL HISTORY: abd distension COMPARISON STUDY: None. FINDINGS: No ascites identified. IMPRESSION: No ascites. ACT 112: Negative or not required by law. Electronically signed by: Steve Pearl M.D. 08/07/2022 7:32 AM Liver Ultrasound 08/07/22 00:00 ABDOMINAL ULTRASOUND, RIGHT UPPER QUADRANT HISTORY: anasarca, assess for liver disease. COMPARISON: None. FINDINGS: Pancreas: Obscured by overlying bowel gas. Liver: Unremarkable. Gallbladder: No gallbladder wall thickening. No gallstones. There is an 8 mm gallbladder polyp. CBD: 5 mm. Right kidney: No hydronephrosis. A 2.9 cm lower pole cyst. Miscellaneous: Small right pleural effusion. IMPRESSION: 1. Normal liver. 2. An 8 mm gallbladder polyp. Follow-up recommended to ensure stability. 3. Small right pleural effusion. ACT 112: Positive. There are findings on this exam that require communication between the performing entity and the patient following Patient Test Result Information Act ([place] Act 112) guidelines. Electronically signed by: Steve Pearl M.D. 08/07/2022 7:34 AM Renal Ultrasound 08/08/22 11:04 RENAL ULTRASOUND HISTORY: Acute kidney injury on chronic kidney disease. COMPARISON: None. FINDINGS: Right kidney: 11.6 cm. A 3.4 cm lower pole cyst. Trace perinephric edema/fluid. No hydronephrosis. Mild increased cortical echogenicity. There is mild cortical thinning/scarring. Left kidney: 11.1 cm. Possible 1.7 cm hypoechoic lesion. Trace perinephric edema/fluid No hydronephrosis. Mild increased cortical echogenicity is noted. Bladder: No bladder wall thickening. The bilateral ureteral jets were identified. IMPRESSION: 1. No hydronephrosis. 2. Trace bilateral perinephric edema/fluid. 3. Slight increased cortical echogenicity suggestive of medical renal disease. 4. Questionable 1.7 cm hypoechoic lesion within the left kidney. This may represent the normal cortical lobulation. Follow-up nonemergent dedicated MRI or CT of the kidneys can be performed for further evaluation ACT 112: Negative or not required by law. Electronically signed by: Steve Pearl M.D. 08/08/2022 5:56 PM Ordered Studies 08/06/22 22:27 CT forearm LT wo con Urgent CT head/brain wo con Urgent 08/07/22 00:00 US abdomen ltd ascites Urgent US liver Urgent 08/08/22 11:04 US renal/blad retro comp Routine Hospital Course (1) SOB (shortness of breath): Hypertensive urgency Atenolol changed to carvedilol 3.125 mg twice daily Hydralazine dose increased to 100 mg 3 times daily Nephrology on board Continue current medications Volume overload Likely multifactorial acute on chronic diastolic heart failure, CKD stage IV -CXR:No acute cardiopulmonary findings. Mild cardiomegaly. -ABD USD:No ascites. -Outpatient ECHO:EF: 45-50%, mild concentric LVH, abnormal diastolic dysfun ction, normal right ventricular size and function, no intracardiac mass or thrombus identified -Renal USD:No hydronephrosis. Trace bilateral perinephric edema/fluid. Slight increased cortical echogenicity suggestive of medical renal disease. Questionable 1.7 cm hypoechoic lesion within the left kidney. This may represent the normal cortical lobulation. Follow-up nonemergent dedicated MRI or CT of the kidneys can be performed for further evaluation -High Protein/Cr ration on UA -I's and O's, daily weight, fluid restriction Lasix changed to Bumex Appreciate nephrology input Monitor volume status Serum and urine immunofixation pending Cr 3.7 today Bumex dose decreased 0.5 mg daily Discussed with nephrology today/l okay to discharge home, follow-up with Dr. Schafer on Tuesday. Left kidney lesion Incidental finding on renal ultrasound Follow-up as outpatient Supratherapeutic INR now subtherapeutic No bleeding issues Monitor INR 3.7>3.2>2.1>1.7>2.5 Continue Coumadin Gallbladder polyp Incidental finding on ultrasound -Liver USD:Normal liver. An 8 mm gallbladder polyp. Follow-up recommended to ensure stability. Follow-up as outpatient DM II HbA1c 8.9 Hold home regimen Continue insulin while hospitalized Monitor BGS H/O PVD as per records Hyperlipidemia H/O statin intolerance H/O PE Coumadin initially held due to supratherapeutic INR Continue Coumadin Anxiety/mood disorder Continue home medications DVT Px: Coumadin CODE STATUS Full code (2) Volume overload: (3) Chronic kidney disease, stage 4 (severe): (4) Uncontrolled type 2 diabetes mellitus: (5) Hx pulmonary embolism: (6) HTN (hypertension): (7) Hyperlipidemia: (8) Anemia due to chronic kidney disease: Assessment and plan per Dr. Blair. See addendum. Total Time Total Time Spent Total Time Spent (In Minutes): 58 minutes Discharge Plan Discharge Items Patient Disposition: Home - Self-Care Reason For Visit: HTN CRISIS Discharge Diagnosis: Hypertensive urgency Acute on chronic diastolic heart failure CKD stage IV Left kidney lesion Gallbladder polyp Supratherapeutic INR Activity: Per Instructions section Exercise/Sports: Gradually increase as tolerated Non-emergency contact: Primary Care Provider and [employer] Supervisor Call non-emergency contact if: you have any medication questions, your symptoms worsen, your pain is concerning for you and you have a fever Follow-up/Referrals: Mavis Schafer MD [Physician] - 08/12/22 3:40 pm Asaf Younger MD [Primary Care Provider] - (Please note that DR Younger has retired.) Aureliano Veliz MD [Outside Practitioners] - 09/01/22 11:30 am Diet: Carb Consistent or DM2 and Heart Healthy Fluids: 2000ml (8 cups) Addtl Attending Provider Instructions: Follow-up with your primary care physician in 1 week Follow-up with your tour driver on 08/12/22 as scheduled Follow-up with Coumadin clinic in 1 week for monitoring PT/INR and adjusting Coumadin dose as needed Follow-up with your senior information security consultant as needed. --- Your serum and urine immunofixation study is pending at the time of discharge. Follow-up with your tour driver for results. --- You are incidentally noted to have left kidney lesion and gallbladder polyp follow-up with your primary care physician for further management. Seek immediate medical attention if your symptoms reoccur or worsen Please take all medications as instructed on discharge list below. Please call if you have any questions or problems. You can reach a [facility] hospitalist on duty at [facility] 24 hours a day by calling [phone] Pending Studies at Discharge: Yes Studies:: Serum and urine immunofixation test Stand-Alone Forms: My [facility], Smoking Cessation Medications and DC Order Prescriptions: New carvedilol 3.125 mg Tablet 3.125 mg PO BID Qty: 60 1RF bumetanide 1 mg Tablet 0.5 mg PO QAM Qty: 30 0RF Continued gabapentin 100 mg capsule 100 mg PO TID glipizide 10 mg tablet 10 mg PO DAILY warfarin 5 mg tablet 5 mg PO QPM Rx Instructions: 5 mg PO as directed; Victoza 3-Sampson 0.6 mg/0.1 mL (18 mg/3 mL) pen injector 1.8 mg subcut DAILY sertraline 100 mg tablet 100 mg PO DAILY calcitriol 0.25 mcg capsule 0.25 mcg PO 3XWK Rx Instructions: TAKES MON, WED, & FRI. fenofibrate micronized 43 mg capsule 43 mg PO DAILY Discontinued furosemide [Lasix] 40 mg tablet 40 mg PO DAILY Qty: 90 3RF hydralazine 50 mg tablet 50 mg PO TID atenolol 50 mg tablet 50 mg PO BID Discharge Orders: Discharge Order (Routine); Ordered 08/10/22 Ordered By: Radu Troy/Other Patient Handouts: High Blood Sugar (Hyperglycemia), Managing Type 2 Diabetes Admission Data Admit Date/Time: 08/06/22 23:50 Attending Provider: Radu Morris Admit Provider: Magnus Blair Primary Care Provider: Asaf Younger Other Providers: Magnus Blair ; Terence Deras ; Mavis Schafer Kevin C. ; Helena Pollock
[2022-08-10] MEDS ORDERED: WARFARIN SOD 4 MG TAB PO SCH (16:00)
== END 2022-08-10 14:39 | disposition home or self-care (01) | DRG 291 ==
LOC: ED 16:19 → 2E 23:50

== ENCOUNTER 2022-08-19 12:14 | Inpatient (IN) ==
--- NOTE | 2022-08-19 12:42 | Emergency Department Note ---
History of Present Illness General Chief complaint: Hypertension Stated complaint: REF BY SUZAN,HYPERTENSION Time Seen by Provider: 08/19/22 12:24 Source: patient, family, RN notes reviewed and old records reviewed (I have reviewed the clinic note from [facility] from today) Mode of arrival: ambulatory Limitations: no limitations History of Present Illness This patient is a 59-year-old male who was sent over by his primary care doctor after he has had hypertension and hyperglycemia. He was just recently hospitalized here for CHF. He has renal insufficiency as well. He says his blood pressure was running 180/92 at home in the doctor's office was over 200 he says his sugars been running in the 4-500 range. No fever or chills he has had occasional vomiting no abdominal pain no chest pain he feels slightly short of breath but much better than when he was admitted he said they took 6-1/2 L off of home 2 weeks ago. He is on Coumadin and apparently they did an INR today that was greater than 8. He was seen by his doctor and referred to the ER. They sent him here from [facility] given the fact that his mobile nurse is here and he was hospitalized here recently. He has been on the diuretic but they ta lked to the kidney doctor on Tuesday and apparently his creatinine was going up so I have had him hold it since Tuesday with plan to recheck labs. He denies any fall or trauma recently. No headache. No focal numbness or weakness. No blood or melena in his stools Home Medications Medication Instructions Recorded Confirmed Type gabapentin 100 mg capsule 100 mg PO TID 03/26/20 08/12/22 History glipizide 10 mg tablet 10 mg PO DAILY 03/26/20 08/12/22 History liraglutide 0.6 mg/0.1 mL (18 mg/3 1.8 mg subcut DAILY 03/26/20 08/12/22 History mL) subcutaneous pen injector (Victoza 3-Sampson) warfarin 5 mg tablet 5 mg PO QPM 03/26/20 08/12/22 History sertraline 100 mg tablet 100 mg PO DAILY 05/22/21 08/12/22 History calcitriol 0.25 mcg capsule 0.25 mcg PO 3XWK 08/06/22 08/12/22 History fenofibrate micronized 43 mg 43 mg PO DAILY 08/06/22 08/12/22 History capsule bumetanide 1 mg tablet 0.5 mg PO QAM #30 tabs 08/10/22 08/12/22 Rx carvedilol 6.25 mg tablet 6.25 mg PO BID #60 tabs 08/12/22 08/12/22 Rx hydralazine 50 mg tablet 50 mg PO TID #90 tabs 08/12/22 08/12/22 Rx Allergies Allergy/AdvReac Type Severity Reaction Status Date / Time atorvastatin AdvReac Intermediate muscle Verified 08/12/22 15:47 aches bupropion [From Wellbutrin] AdvReac Intermediate vivid Verified 08/12/22 15:47 dreams and hallucinations Ckcsvnr-BTL-WcU Reductase AdvReac Intermediate body aches Verified 08/12/22 15:47 Inhibitor [Nzlxwlj-Lvi-Yle Reductase Inhibitor] Past Med/Surg History Medical History Acute kidney injury Anemia due to chronic kidney disease Chronic kidney disease, stage 4 (severe) Depression, unspecified 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 HTN (hypertension) Hx pulmonary embolism Hyperkalemia Hyperlipidemia Left renal mass Obesity Postlaminectomy syndrome PVD (peripheral vascular disease) Right foot drop Stage 3b chronic kidney disease Statin intolerance Uncontrolled type 2 diabetes mellitus Vitamin D deficiency Surgical History History of back surgery History of hip surgery History of tonsillectomy Family History Brother Cancer Father Hypertension Diabetes Heart disease Dementia Mother Diabetes Social History Smoking Status: Never smoker Second Hand Exposure: No; Hx Alcohol Use: No Hx Substance Use: No Preferred Language: Mohawk Communication Ability: Effective 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 Required: No Beliefs That Will Affect Care: None Current Living Situation: Alone Current Living Situation Comment: Owns and lives in [place], daughter lives beside hit Feels Safe at Home: Yes Assistive Devices: None Review of Systems A total of 10 systems reviewed and were otherwise negative Physical Exam Vital Signs Vital Signs - 24 hr 08/19/22 12:15 08/19/22 12:36 08/19/22 12:41 Temperature 36.8 C Temperature Source Oral Pulse Rate 79 78 Respiratory Rate 16 Blood Pressure 164/85 H Blood Pressure Mean 111 Pulse Oximetry 96 97 Oxygen Delivery Method Room Air Room Air Sepsis Recent Fever Within 48 Hours No Sepsis New/Unexplained Change in Mental Status N/A Sepsis Action Taken by Nursing No Action Required 08/19/22 13:34 08/19/22 14:01 08/19/22 15:01 Temperature Temperature Source Pulse Rate 75 72 74 Respiratory Rate 19 18 13 Blood Pressure 163/91 H 199/103 H 235/104 H Blood Pressure Mean 115 135 147 Pulse Oximetry 95 94 99 Oxygen Delivery Method Sepsis Recent Fever Within 48 Hours Sepsis New/Unexplained Change in Mental Status Sepsis Action Taken by Nursing 08/19/22 15:31 08/19/22 15:40 Temperature Temperature Source Pulse Rate 76 74 Respiratory Rate 18 13 Blood Pressure 230/116 H 241/110 H Blood Pressure Mean 154 153 Pulse Oximetry 98 95 Oxygen Delivery Method Sepsis Recent Fever Within 48 Hours Sepsis New/Unexplained Change in Mental Status Sepsis Action Taken by Nursing General: Well developed well nourished vaj-eyj-geehhydgo older male who appears in no acute distress, breathing comfortably on room air. Normal speech HEENT: Normal cephalic atraumatic. Pupils are equal round and reactive to light. Extraocular movements are intact. Oropharynx is pink with moist mucous membranes. No swelling of the mouth lips or tongue. Neck: Supple with a midline trachea. No meningeal signs or stiffness, no JVD or bruits. No Stridor. Chest: Clear to auscultation bilaterally. No wheezes or rhonchi. No increased work of breathing. Heart: Regular rate and rhythm without murmurs or gallops. Abdomen: Soft nontender, nondistended without rebound guarding or rigidity. Extremities: No cyanosis clubbing or edema with exception of chronic edema of the right lower leg with the right being swollen compared to the left. They tell me this is chronic and unchanged Spine/Back. Non tender to palpation. No CVA tenderness Skin: Good turgor without rashes. Neurologic exam: Cranial nerves two through 12 are intact. Motor and sensation are intact and symmetrical throughout. Course Administered Medications Discontinued Medications Phytonadione 2.5 mg/ Dextrose 50.25 mls @ 100.5 mls/hr IV ONE ONE Stop: 08/19/22 15:20 Last Infusion: 08/19/22 15:54 Dose: 0 mls/hr Documented By: Admin: 08/19/22 15:23 Dose: 100.5 mls/hr Documented By: MICAH Labetalol HCl (Labetalol Hcl Iv 5 Mg/Ml 20ml) 10 mg IV NOW STA Stop: 08/19/22 15:48 Last Admin: 08/19/22 15:52 Dose: 10 mg Documented By: ROCIO Co-signed By: [id number] Patiromer (Patiromer Calcium Sorbitex 8.4 Gm Pack) 8.4 gm PO NOW STA Stop: 08/19/22 14:23 Last Admin: 08/19/22 15:23 Dose: 8.4 gm Documented By: MICAH Medical Decision Making Differential Diagnosis Hyperglycemia, hypertension, diabetic complication, acute coronary syndrome, arrhythmia, CHF, infection, hemorrhage or bleed Medical Records Attestation: I reviewed the patient's medical records. Home Medications Current Medication List: was personally reviewed by me Laboratory Data Attestation: I reviewed the patient's lab results. 08/19/22 12:28 08/19/22 12:28 Lab Results 08/19/22 08/19/22 08/19/22 Range/Units 12:28 12:28 12:28 WBC 6.53 (4.8-10.8) K/ul RBC 3.97 L (4.70-6.10) M/uL Hgb 11.9 L (14.0-18.0) g/dl Hct 34.6 L (42.0-52.0) % MCV 87.2 (80.0-100.0) fL MCH 30.0 (25.0-34.0) pg MCHC 34.4 (32.0-36.0) g/dL RDW Std Deviation 41.1 (36.4-46.3) fL RDW Coeff of Severiano 12.9 (11.5-14.5) % Plt Count 256 (130-400) K/uL MPV 10.3 (9.4-12.4) fL Immature Gran % (Auto) 0.3 % Neut % (Auto) 69.6 % Lymph % (Auto) 20.8 % [place] % (Auto) 6.4 % Eos % (Auto) 1.7 % Baso % (Auto) 1.2 % Neut # (Auto) 4.54 (1.40-6.50) K/uL Lymph # (Auto) 1.36 (1.2-3.4) K/uL [place] # (Auto) 0.42 (0.11-0.59) K/uL Eos # (Auto) 0.11 (0-0.50) K/uL Baso # (Auto) 0.08 (0-0.2) K/uL Immature Gran # (Auto) 0.02 (0.01-0.20) K/uL PT 74.7 H (9.0-12.0) Seconds INR 7.8 H* (0.9-1.1) APTT 57.3 H* (21.0-31.0) Seconds PTT Ratio 2.1 Sodium 133 L (136-145) mmol/L Potassium 5.4 H (3.5-5.1) mmol/L Chloride 105 (98-107) mmol/L Carbon Dioxide 23 (21-32) mmol/L Anion Gap 5 (3-11) BUN 56 H (6-23) mg/dl Creatinine 3.32 H (0.6-1.4) mg/dl Est Cr Clr Drug Dosing Not Reportable Est GFR ( Amer) 20.9 ml/min Est GFR (Non-Af Amer) 18.0 ml/min BUN/Creatinine Ratio 16.9 (10-20) Glucose 322 H* (70-99(Fasting)) mg/dl Calcium 8.2 L (8.5-10.1) mg/dl Total Bilirubin 0.3 (0.2-1.0) mg/dl AST 14 (13-39) U/L ALT 9 (7-52) U/L Alkaline Phosphatase 64 (34-104) U/L Troponin I High Sens 35.4 H (0-20) pg/ml B-Natriuretic Peptide (0-100) pg/ml Total Protein 6.1 (6.0-8.3) gm/dl Albumin 3.4 (3.4-5.0) gm/dl Globulin 2.7 (2.5-4.0) gm/dl Albumin/Globulin Ratio 1.3 (0.9-2) Lipase 169 H (11-82) U/L SARS-CoV-2, RNA, NAAT (NEGATIVE) 08/19/22 08/19/22 08/19/22 Range/Units 12:45 12:45 14:07 WBC (4.8-10.8) K/ul RBC (4.70-6.10) M/uL Hgb (14.0-18.0) g/dl Hct (42.0-52.0) % MCV (80.0-100.0) fL MCH (25.0-34.0) pg MCHC (32.0-36.0) g/dL RDW Std Deviation (36.4-46.3) fL RDW Coeff of Severiano (11.5-14.5) % Plt Count (130-400) K/uL MPV (9.4-12.4) fL Immature Gran % (Auto) % Neut % (Auto) % Lymph % (Auto) % [place] % (Auto) % Eos % (Auto) % Baso % (Auto) % Neut # (Auto) (1.40-6.50) K/uL Lymph # (Auto) (1.2-3.4) K/uL [place] # (Auto) (0.11-0.59) K/uL Eos # (Auto) (0-0.50) K/uL Baso # (Auto) (0-0.2) K/uL Immature Gran # (Auto) (0.01-0.20) K/uL PT (9.0-12.0) Seconds INR (0.9-1.1) APTT (21.0-31.0) Seconds PTT Ratio Sodium (136-145) mmol/L Potassium (3.5-5.1) mmol/L Chloride (98-107) mmol/L Carbon Dioxide (21-32) mmol/L Anion Gap (3-11) BUN (6-23) mg/dl Creatinine (0.6-1.4) mg/dl Est Cr Clr Drug Dosing Est GFR ( Amer) ml/min Est GFR (Non-Af Amer) ml/min BUN/Creatinine Ratio (10-20) Glucose (70-99(Fasting)) mg/dl Calcium (8.5-10.1) mg/dl Total Bilirubin (0.2-1.0) mg/dl AST (13-39) U/L ALT (7-52) U/L Alkaline Phosphatase (34-104) U/L Troponin I High Sens 32.0 H (0-20) pg/ml B-Natriuretic Peptide 210 H (0-100) pg/ml Total Protein (6.0-8.3) gm/dl Albumin (3.4-5.0) gm/dl Globulin (2.5-4.0) gm/dl Albumin/Globulin Ratio (0.9-2) Lipase (11-82) U/L SARS-CoV-2, RNA, NAAT NEGATIVE (NEGATIVE) Imaging Data Attestation: I personally reviewed and interpreted this imaging study as follows: My Impression: Chest x-rayno acute infiltrate, failure, pneumothorax seen Radiologist's Impression: Chest X-Ray 08/19/22 12:36 SINGLE VIEW CHEST CLINICAL HISTORY: Atypical chest pain. FINDINGS: An AP, portable, upright chest radiograph is compared to study dated 08/06/2022. The heart is enlarged. The pulmonary vasculature is noncongested. The lungs and pleural spaces are clear. No pneumothorax is seen. The skeletal structures are osteopenic. There are chronic/healed left-sided rib fractures. IMPRESSION: Cardiomegaly with no active disease in the chest. ACT 112: Negative or not required by law. Electronically signed by: Oc Corral M.D. 08/19/2022 12:53 PM ECG Data Attestation: I personally reviewed and interpreted this ECG as follows: Indication: + weakness Rate (beats per minute): 76 Rhythm: + normal sinus ECG Intervals/blocks: + Normal QRS, + Normal QT and + Normal RI ECG [place]: + Normal ECG ST segments: + Normal ST segments ECG Findings: + Poor R wave progression and + Other (T wave inversions laterally); no PACs or no PVCs Comparison ECG Date: from (08/06/22) Change: no significant change Additional Comments: EKG #2: Normal sinus rhythm rate of 74. T wave inversions laterally with nonspecific ST abnormalities. No change compared EKG #1. Mildly prolonged prolonged QT MDM Narrative This patient comes in as described above. This patient has a complex medical history which is recent hospitalized. His doctor sent her here because they are worried about hyperglycemia and hypertension. His blood pressure in triage was 164/85. IV access established blood work was obtained he was reassessed frequently. The patient looks well and has a normal neurologic exam. He had extensive work-up here. Chest x-ray looks very reassuring there is no congestive heart failure pneumonia or pneumothorax he has no significant acute peripheral edema. Clinically he does not appear to be fluid low overloaded or having congestive heart failure at present. He has no chest pain. He had 2 sets of EKGs which showed no acute ischemic changes compared to older each other. His initial troponin was mildly elevated/in the saini area but the second 1 was trending downward which is also reassuring. His blood sugar was in the 300s however he has no acidosis or anything to suggest DKA or HH NC. His renal function is mildly elevated but trending downward over the last 2 blood draws. This is headed in the right direction he has been off of Bumex and seems to be tolerating it well as he does not appear to be fluid overloaded. His potassium is trending mildly upward as well. I did discuss the case with Dr. Garcia his mobile nurse. She recommends that we give him Veltassa dose for the potassium. She recommends continue to hold Bumex. She just recently started on hydralazine that he should continue for his blood pressure. I further monitor the blood pressure while he was in the ED. His INR also came back elevated 7.8. I did discuss with the case with Dr. Fraire and she recommended vitamin K 5 mg p.o. I did however after talking to realized that the patient cannot take p.o. after taking the Veltassa for 3 hours in light of this I gave him 1 dose of 2.5 mg IV vitamin K. I did discuss this with Gabriel our ED pharmacist. The patient seem to be doing well however his blood pressure started to go up again and he was 240/110. In light of this I did order IV labetalol we did research what he received in the hospital and he did receive this before. I do think we need to work on his blood pressure and in light of this I do think he needs to be admitted for further inpatient treatment and evaluation. COVID test was negative. I have consulted the [facility] hospitalist group to talked to Zulema the hospitalist. Continuous cardiac monitoring: Orders placed in EMR for continuous cardiac monitoring. Upon my interpretation the patient was noted to be in normal sinus rhythm with a rate of 80 Impression & Plan Hypertensive crisis, HTN (hypertension), Supratherapeutic INR, Hyperglycemia, Chronic renal insufficiency, Acute hyperkalemia Discharge Plan Visit Data Chief Complaint: Hypertension Stated Complaint: REF BY DOC,HYPERTENSION ED Provider: Franky Arias Discharge Problem: Hypertensive crisis, HTN (hypertension), Supratherapeutic INR, Hyperglycemia, Chronic renal insufficiency, Acute hyperkalemia Forms Stand Alone Forms: [facility] [employer] Prescriptions Prescriptions: No Action hydralazine 50 mg tablet 50 mg PO TID Qty: 90 2RF carvedilol 6.25 mg tablet 6.25 mg PO BID Qty: 60 2RF gabapentin 100 mg capsule 100 mg PO TID glipizide 10 mg tablet 10 mg PO DAILY warfarin 5 mg tablet 5 mg PO QPM Rx Instructions: 5 mg PO as directed; Victoza 3-Sampson 0.6 mg/0.1 mL (18 mg/3 mL) pen injector 1.8 mg subcut DAILY sertraline 100 mg tablet 100 mg PO DAILY calcitriol 0.25 mcg capsule 0.25 mcg PO 3XWK Rx Instructions: TAKES MON, WED, & FRI. fenofibrate micronized 43 mg capsule 43 mg PO DAILY bumetanide 1 mg Tablet 0.5 mg PO QAM Qty: 30 0RF Hold Instructions: GABY Referrals Referrals: Asaf Younger MD [Primary Care Provider] -
--- NOTE | 2022-08-19 12:54 | XRay Report ---
SINGLE VIEW CHEST CLINICAL HISTORY: Atypical chest pain. FINDINGS: An AP, portable, upright chest radiograph is compared to study dated 08/06/2022. The heart i s enlarged. The pulmonary vasculature is noncongested. The lungs and pleural spaces are clear. No pne umothorax is seen. The skeletal structures are osteopenic. There are chronic/healed left-sided rib fr actures. IMPRESSION: Cardiomegaly with no active disease in the chest. ACT 112: Negative or not required by law. Electronically signed by: Oc Corral M.D. 08/19/2022 12:53 PM
[2022-08-19 13:00] LABS: Basophils # (auto) 0.08 K/uL (0-0.2); Basophils % (auto) 1.2 %; Eosinophils # (auto) 0.11 K/uL (0-0.50); Eosinophils % (auto) 1.7 %; Hematocrit (blood only) 34.6 % (42.0-52.0); Hemoglobin 11.9 g/dl (14.0-18.0); Immature Granulocytes # (auto) 0.02 K/uL (0.01-0.20); Immature Granulocytes % (auto) 0.3 %; Lymphocytes # (auto) 1.36 K/uL (1.2-3.4); Lymphocytes % (auto) 20.8 %; Mean Corpuscular Hgb Conc 34.4 g/dL (32.0-36.0); Mean Corpuscular Volume 87.2 fL (80.0-100.0); Mean Platelet Volume 10.3 fL (9.4-12.4); Monocytes # (auto) 0.42 K/uL (0.11-0.59); Monocytes % (auto) 6.4 %; Neutrophils # (auto) 4.54 K/uL (1.40-6.50); Neutrophils % (auto) 69.6 %; Platelet Count 256 K/uL (130-400); RDW Coefficient of Variation 12.9 % (11.5-14.5); RDW Standard Deviation 41.1 fL (36.4-46.3); Red Blood Count 3.97 M/uL (4.70-6.10); White Blood Count 6.53 K/ul (4.8-10.8)
[2022-08-19 13:17] LABS: Alanine Aminotransferase 9 U/L (7-52); Albumin Globulin Ratio 1.3 (0.9-2); Albumin Level 3.4 gm/dl (3.4-5.0); Alkaline Phosphatase 64 U/L (34-104); Anion Gap 5 (3-11); Aspartate Aminotransferase 14 U/L (13-39); BUN Creatinine Ratio 16.9 (10-20); Bilirubin,Total 0.3 mg/dl (0.2-1.0); Blood Urea Nitrogen 56 mg/dl (6-23); Calcium 8.2 mg/dl (8.5-10.1); Carbon Dioxide 23 mmol/L (21-32); Chloride 105 mmol/L (98-107); Est GFR (African American) 20.9 ml/min; Globulin 2.7 gm/dl (2.5-4.0); Glucose 322 mg/dl (70-99(Fasting)); Lipase 169 U/L (11-82); Potassium 5.4 mmol/L (3.5-5.1); Sodium 133 mmol/L (136-145); Total Protein 6.1 gm/dl (6.0-8.3); Troponin I High Sensitivity 35.4 pg/ml (0-20)
[2022-08-19 13:46] LABS: Partial Thromboplastin Ratio 2.1; Prothrombin Time 74.7 Seconds (9.0-12.0)
[2022-08-19] MEDS ORDERED: PATIROMER CALCIUM SORBITEX 8.4 GM PACK PO STA (14:22)
[2022-08-19 14:29] LABS: INR 7.8 (0.9-1.1)
[2022-08-19 14:30] LABS: Partial Thromboplastin Time 57.3 Seconds (21.0-31.0)
--- NOTE | 2022-08-19 14:37 | Electrocardiogram Report ---
Test Reason : Blood Pressure : / mmHG Vent. Rate : 076 BPM Atrial Rate : 076 BPM P-R Int : 182 ms QRS Dur : 086 ms QT Int : 406 ms P-R-T Axes : 038 005 153 degrees QTc Int : 456 ms Poor data quality, interpretation may be adversely affected Normal sinus rhythm Possible Old Septal infarct (cited on or before 06-AUG-2022) Nonspecific T wave abnormality Lateral leads Abnormal ECG When compared with ECG of 06-AUG-2022 16:50, No significant change Confirmed by Cruz Middleton ([id number]) on 08/19/2022 2:37:06 PM Referred By: Confirmed By:Cruz Middleton
--- NOTE | 2022-08-19 14:41 | Electrocardiogram Report ---
Test Reason : Blood Pressure : / mmHG Vent. Rate : 074 BPM Atrial Rate : 074 BPM P-R Int : 202 ms QRS Dur : 100 ms QT Int : 426 ms P-R-T Axes : 053 012 145 degrees QTc Int : 472 ms Normal sinus rhythm Possible Old Septal infarct Nonspecific T wave abnormality Lateral leads Prolonged QT Abnormal ECG When compared with ECG of 19-AUG-2022 12:42, No significant change was found Confirmed by Cruz Middleton ([id number]) on 08/19/2022 2:40:53 PM Referred By: Asaf Younger Confirmed By:Cruz Middleton
[2022-08-19] MEDS ORDERED: PHYTONADIONE 2.5 MG in DEXTROSE 5% 50 ML IV ONE (14:51)
[2022-08-19] MEDS ORDERED: LABETALOL HCL IV 5 MG/ML 20ML IV STA (15:47)
--- NOTE | 2022-08-19 16:11 | History & Physical Report ---
Date of Service August 19, 2022 Assessment & Plan (1) Hypertensive crisis: Plan: - Admit to tele for BP > 241/93. After giving IV lebatolol in the ER BP 218/93. - Will give am doses of carvedilol and hydralazine now as he missed those medications this morning due to being sent here by his PCP - Consult nephrology with Cr of 3.32, improved compared to previous admission when it was 4.04. (2) Hx pulmonary embolism: Plan: - States hx of hereditary reasons for blood clots, occurred 6 years ago. Reports family hx of having multiple relatives with clotting disorder - Maintained on coumadin: prior to this last hospital stay he was on alternating doses of 5.0 and 2.5 mg daily, but then went home on 5 mg lyly - Consider changing agent to DOAC- encouraged to discuss with PCP vs starting new agent here (3) Supratherapeutic INR: Plan: - Home regimen: 5 mg daily since last discharged on 08/10. Elevated today outpt coag clinic >8. Here is 7.8. Trend with am labs -Given Vit K 2.5 mg IV (4) Chronic diastolic CHF (congestive heart failure): (5) HTN (hypertension): (6) Hyperlipidemia: Plan: - Appears euvolemic today, R leg is slightly more swollen than the left which he reports is normal s/p nerve surgery on that leg several years ago for neuropat hy. - Managing BP as above - Will increase carvedilol 6.25 BID to 12.5 while here, cont Hydralazine 50 mg TID - Cont statin therapy (7) Chronic kidney disease, stage 4 (severe): Plan: - Nephro consulted for assistance - appreciate recs (8) Diabetes mellitus with neuropathy: Plan: - Holding home glipizide and victoza - ISS with accuchecks achs ordered DVT ppx: Teds, scds, holding coumadin as above CODE: FULL Dispo: From home, lives alone, daughter lives next door. Likely to remain in hospital x 1-2 days. A total of 77 minutes were spent with greater than 50% of that time face to face with the patient, personally reviewing all current laboratories, imaging studies, past medication reconciliation, outpatient chart review, and discussion with specialists to collaborate care for the patient with attending. Please see attending documentation for corrections and/or additions. History of Present Illness Chief Complaint: Elevated BP Primary Care Provider: Asaf Younger MD This is a 66-year-old male with PMH CKD IV, DM II, HTN, HLD, anemia chronic disease, history of PE anticoagulated on warfarin. Patient was recently hospitalized from 08/06-08/10 for acute on chronic diastolic CHF exacerbation, hypertensive urgency where he was seen in conjunction with nephrology here. Today the patient presented from outpatient PCP office for elevated blood pressure, here is 241/110, which is being treated with IV labetalol. He missed morning BP meds due to appointment and then being sent here. He did take carvedilol 6.25 mg BID and hydralazine 50 mg TID yesterday. It was noted that hydralazine was discontinued on discharge last time, however he restarted it after going home per instruction by a physician whom he can't recall. His creatinine has improved since his last admission, currently 3.32. His INR is noted to be supratherapeutic at 7.8, IV vitamin K 2.5 mg was administered in the ER. No current signs of bleeding. He was discharged home with 5 mg daily, and has been following with coag clinic at [facility] in [place], and there is was over 8 this morning. He reports his blood pressure checks at home have been elevated for about 3-4 days,as high as systolic in the 180s-200s. He denies chest pain, headache, lightheadedness or dizziness. He admits to having shortness of breath but feels it is still better than when he was last in the hospital. He has not been taking any diuretic since the last admission due to instruction by Dr. Schafer, whom he saw last Tuesday, 08/13. Has been vomiting once per week, no real known factor triggering this. He has tried taking the pills with food in his stomach and someday tries on an empty stomach. This has been 2 or 3 times since he last left the hospital. Denies abdominal, pain, diarrhea or constipation, no fever sweats or chills. Denies consumption of raw or undercooked meats, no old leftovers, no known sick contacts, is on city water. Allergies Allergy/AdvReac Type Severity Reaction Status Date / Time atorvastatin AdvReac Intermediate muscle Verified 08/19/22 16:29 aches bupropion [From Wellbutrin] AdvReac Intermediate vivid Verified 08/19/22 16:29 dreams and hallucinations Xmofiwb-SRK-FmQ Reductase AdvReac Intermediate body aches Verified 08/19/22 16:29 Inhibitor [Svxynsk-Xbb-Jws Reductase Inhibitor] Home Medications Medication Instructions Recorded Confirmed Type gabapentin 100 mg capsule 100 mg PO TID 03/26/20 08/19/22 History glipizide 10 mg tablet 10 mg PO DAILY 03/26/20 08/19/22 History liraglutide 0.6 mg/0.1 mL (18 mg/3 1.8 mg subcut DAILY 03/26/20 08/19/22 History mL) subcutaneous pen injector (Victoza 3-Sampson) warfarin 5 mg tablet 5 mg PO QPM 03/26/20 08/19/22 History sertraline 100 mg tablet 100 mg PO DAILY 05/22/21 08/19/22 History calcitriol 0.25 mcg capsule 0.25 mcg PO 3XWK 08/06/22 08/19/22 History fenofibrate micronized 43 mg 43 mg PO DAILY 08/06/22 08/19/22 History capsule bumetanide 1 mg tablet 0.5 mg PO QAM #30 tabs 08/10/22 08/19/22 Rx carvedilol 6.25 mg tablet 6.25 mg PO BID #60 tabs 08/12/22 08/19/22 Rx hydralazine 50 mg tablet 50 mg PO TID #90 tabs 08/12/22 08/19/22 Rx Past Med/Surg History Medical History Acute kidney injury Anemia due to chronic kidney disease Chronic kidney disease, stage 4 (severe) Depression, unspecified 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 HTN (hypertension) Hx pulmonary embolism Hyperkalemia Hyperlipidemia Left renal mass Obesity Postlaminectomy syndrome PVD (peripheral vascular disease) Right foot drop Stage 3b chronic kidney disease Statin intolerance Uncontrolled type 2 diabetes mellitus Vitamin D deficiency Surgical History History of back surgery History of hip surgery History of tonsillectomy Family History Brother Cancer Father Hypertension Diabetes Heart disease Dementia Mother Diabetes Social History Smoking Status: Never smoker Second Hand Exposure: No; Hx Alcohol Use: No Hx Substance Use: No Preferred Language: Belarusian Communication Ability: Effective Potato Inspector Required: No Beliefs That Will Affect Care: None Current Living Situation: Alone Current Living Situation Comment: Owns and lives in [facility], daughter lives beside hit Feels Safe at Home: Yes Assistive Devices: None Review of Systems Review of Systems: Constitutional: No fever, sweats or chills Eyes: No diplopia, no worsening or blurred vision ENT: normal hearing, no trouble swallowing Respiratory: No cough, sputum, dyspnea at rest or on exertion Cardiovascular: No chest pain, tightness or palpitations Abdomen: No pain, + nausea, + vomiting, no diarrhea or constipation Musculoskeletal: No joint pain, calf pain, swelling Neurologic: No weakness, numbness/tingling, or balance problems Psychiatric: No anxiety or depression Skin: No rash or itch Physical Exam Physical Exam: General: awake, alert, no apparent distress, + obese Head: Normocephalic, atraumatic ENT: PERRL, EOMI, no pharyngeal exudate, mucous membranes moist Chest: Clear to auscultation, on room air, no adventitious breath sounds Cardiac: Regular rate and rhythm, no murmur, no JVD, normal peripheral pulses, good capillary refill Abdominal: NABS x 4 quadrants, soft, nondistended, nontender to palpation, no rebound or guarding Extremities: Normal inspection, RLE with trace peripheral edema, no edema in the LLE, no erythema, calfs nontender to palpation Psych: Normal mood and affect Neuro: AAO x 3, strength intact bilaterally and rated 5/5, no motor deficits, speech is clear, no peripheral sensory deficits Results & Data Results & Data ([facility]) Vital Signs (Past 12 Hours) Vital Signs Temp Pulse Resp BP Pulse Ox O2 Del Method 08/19/22 15:40 74 13 241/110 H 95 08/19/22 15:31 76 18 230/116 H 98 08/19/22 15:01 74 13 235/104 H 99 08/19/22 14:01 72 18 199/103 H 94 08/19/22 13:34 75 19 163/91 H 95 08/19/22 12:41 78 08/19/22 12:36 97 Room Air 08/19/22 12:15 36.8 C 79 16 164/85 H 96 Room Air Laboratory Results 08/19/22 08/19/22 08/19/22 14:07 12:45 12:45 WBC RBC Hgb Hct MCV MCH MCHC RDW Std Deviation RDW Coeff of Severiano Plt Count MPV Immature Gran % (Auto) Neut % (Auto) Lymph % (Auto) [place] % (Auto) Eos % (Auto) Baso % (Auto) Neut # (Auto) Lymph # (Auto) [place] # (Auto) Eos # (Auto) Baso # (Auto) Immature Gran # (Auto) PT INR APTT PTT Ratio Sodium Potassium Chloride Carbon Dioxide Anion Gap BUN Creatinine Est Cr Clr Drug Dosing Est GFR ( Amer) Est GFR (Non-Af Amer) BUN/Creatinine Ratio Glucose Calcium Total Bilirubin AST ALT Alkaline Phosphatase Troponin I High Sens 32.0 H B-Natriuretic Peptide 210 H Total Protein Albumin Globulin Albumin/Globulin Ratio Lipase SARS-CoV-2, RNA, NAAT NEGATIVE 08/19/22 08/19/22 08/19/22 12:28 12:28 12:28 WBC 6.53 RBC 3.97 L Hgb 11.9 L Hct 34.6 L MCV 87.2 MCH 30.0 MCHC 34.4 RDW Std Deviation 41.1 RDW Coeff of Severiano 12.9 Plt Count 256 MPV 10.3 Immature Gran % (Auto) 0.3 Neut % (Auto) 69.6 Lymph % (Auto) 20.8 [place] % (Auto) 6.4 Eos % (Auto) 1.7 Baso % (Auto) 1.2 Neut # (Auto) 4.54 Lymph # (Auto) 1.36 [place] # (Auto) 0.42 Eos # (Auto) 0.11 Baso # (Auto) 0.08 Immature Gran # (Auto) 0.02 PT 74.7 H INR 7.8 H* APTT 57.3 H* PTT Ratio 2.1 Sodium 133 L Potassium 5.4 H Chloride 105 Carbon Dioxide 23 Anion Gap 5 BUN 56 H Creatinine 3.32 H Est Cr Clr Drug Dosing Not Reportable Est GFR ( Amer) 20.9 Est GFR (Non-Af Amer) 18.0 BUN/Creatinine Ratio 16.9 Glucose 322 H* Calcium 8.2 L Total Bilirubin 0.3 AST 14 ALT 9 Alkaline Phosphatase 64 Troponin I High Sens 35.4 H B-Natriuretic Peptide Total Protein 6.1 Albumin 3.4 Globulin 2.7 Albumin/Globulin Ratio 1.3 Lipase 169 H SARS-CoV-2, RNA, NAAT Diagnostic Findings Chest X-Ray 08/19/22 12:36 SINGLE VIEW CHEST CLINICAL HISTORY: Atypical chest pain. FINDINGS: An AP, portable, upright chest radiograph is compared to study dated 08/06/2022. The heart is enlarged. The pulmonary vasculature is noncongested. The lungs and pleural spaces are clear. No pneumothorax is seen. The skeletal structures are osteopenic. There are chronic/healed left-sided rib fractures. IMPRESSION: Cardiomegaly with no active disease in the chest. ACT 112: Negative or not required by law. Electronically signed by: Oc Corral M.D. 08/19/2022 12:53 PM ECG Additional Comments: 19-AUG-2022 14:05:02 [facility]-EDSTAT ROUTINE RETRIEVAL Normal sinus rhythm Possible Old Septal infarct Nonspecific T wave abnormality Lateral leads Prolonged QT Abnormal ECG When compared with ECG of 19-AUG-2022 12:42, No significant change was found Confirmed by Cruz Middleton ([id number]) on 08/19/2022 2:40:53 PM 25mm/s10mm/[id number] 241CID: [id number] by: Asaf Younger Confirmed By: Cruz Middleton Vent. rate 74 BPM CA interval 202 ms QRS duration 100 ms QT/QTc 426/472 ms Code Status & VTE Plan Code Status Full code - discussed with the patient at bedside Supervising Physician Co-Signing Physician Notes Patient seen and examined. 66-year-old man with hypertension, diabetes CKD 4, history of PE on warfarin recently hospitalized for acute on chronic diastolic heart failure, hypertensive urgency who presents today from PCPs office for significantly elevated blood pressure. Patient reports that he was started on carvedilol 6.25 twice daily on recent discharge. He also takes hydralazine 50 mg 3 times a day.. Reported he did not take any medication this morning as he was nauseous earlier prior to going to his PCPs appointment. 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 He also reported that he was taking 5 mg of warfarin on alternate days and then 2.5 mg of warfarin on alternate days prior to recent hospitalization. He stated that after discharge he had been taking 5 mg daily. Exam notable for obese man blood pressure of 208/102 Labs notable for hemoglobin of 11.9, INR of 7.8, potassium of 5.4, sodium 133, creatinine of 3.32, glucose of 322, troponin of 32, BNP of 210, Chest x-ray noted cardiomegaly without any acute abnormalities. Hypertensive urgency. We will increase patient's carvedilol to 12.5 mg twice daily and monitor. Continue hydralazine 50 3 times daily Got IV labetalol in ER. Monitor blood pressure. Antiemetics prn Got Vit K in ER. Monitor INR. Attending tomorrow to ensure patient is properly educated on w arfarin/anticoagulation prior to dc. Also ensure patient's dose is not more than what it was prior to recent hospitalization as his INR on that presentation was mildly supratherapeutic on presentation. Other plans as detailed by Chantell Castro PA-C (5) HTN (hypertension) Hypertension type: unspecified Qualified Code(s): I10 - Essential (primary) hypertension
[2022-08-19] MEDS ORDERED: hydrALAZINE TAB 50 MG TAB PO STA (16:55)
[2022-08-19] MEDS ORDERED: carvediloL 6.25 MG TAB PO ONE (17:00)
[2022-08-19] MEDS ORDERED: Patient's HEIGHT &/or WEIGHT Needed SCH (17:00)
[2022-08-19] MEDS ORDERED: carvediloL 12.5 MG TAB PO ONE (17:15)
[2022-08-19] MEDS ORDERED: GLUCAGON FOR INJ 1 MG VIAL SQ PRN (19:36)
[2022-08-19] MEDS ORDERED: GLUCOSE 10 TAB/TUBE PO PRN (19:36)
[2022-08-19] MEDS ORDERED: CARBOHYDRATES FOR HYPOGLYCEMIA PO PRN (19:36)
[2022-08-19] MEDS ORDERED: GLUCOSE 40% GEL 15 GM TUBE PO PRN (19:36)
[2022-08-19] MEDS ORDERED: ONDANSETRON INJ 2 MG/ML 2 ML VIAL IV PRN (19:36)
[2022-08-19] MEDS ORDERED: ACETAMINOPHEN 325 MG TAB PO PRN (19:36)
[2022-08-19] MEDS ORDERED: DEXTROSE 50% 50 ML SYRINGE IV PRN (19:36)
[2022-08-19] MEDS: GABAPENTIN 100 MG CAP PO SCH (20:25)
[2022-08-19] MEDS: hydrALAZINE TAB 50 MG TAB PO SCH (20:26)
[2022-08-19] MEDS: INSULIN ASPART PER UNIT CHARGE SC SCH (21:35)
[2022-08-20 06:33] LABS: Hematocrit (blood only) 33.9 % (42.0-52.0); Hemoglobin 11.5 g/dl (14.0-18.0); Mean Corpuscular Hemoglobin 29.6 pg (25.0-34.0); Mean Corpuscular Hgb Conc 33.9 g/dL (32.0-36.0); Mean Corpuscular Volume 87.4 fL (80.0-100.0); Mean Platelet Volume 9.9 fL (9.4-12.4); Platelet Count 217 K/uL (130-400); RDW Coefficient of Variation 12.9 % (11.5-14.5); RDW Standard Deviation 41.2 fL (36.4-46.3); Red Blood Count 3.88 M/uL (4.70-6.10); White Blood Count 5.53 K/ul (4.8-10.8)
[2022-08-20 06:54] LABS: BUN Creatinine Ratio 16.3 (10-20); Calcium 8.4 mg/dl (8.5-10.1); Creatinine Clr Calc Pharmacy 25.2 ml/min; Est GFR (African American) 21.4 ml/min; Est GFR (Non-African American) 18.4 ml/min; Magnesium 2.2 mg/dl (1.7-2.4); Phosphorus 4.2 mg/dl (2.5-4.9); Potassium 4.8 mmol/L (3.5-5.1)
[2022-08-20 07:01] LABS: INR 2.3 (0.9-1.1)
[2022-08-20] MEDS: SERTRALINE HCL 100 MG TABLET PO SCH (08:07)
[2022-08-20] MEDS: hydrALAZINE TAB 50 MG TAB PO SCH ×3 (08:07→20:39)
[2022-08-20] MEDS: GABAPENTIN 100 MG CAP PO SCH ×3 (08:07→20:41)
[2022-08-20] MEDS: FENOFIBRATE NANOCRYSTALLIZED 48 MG TABLET SCH (08:07)
[2022-08-20] MEDS: INSULIN ASPART PER UNIT CHARGE SC SCH ×4 (08:21→20:40)
[2022-08-20] MEDS ORDERED: carvediloL 12.5 MG TAB PO SCH (09:00)
[2022-08-20] MEDS ORDERED: carvediloL 12.5 MG TAB PO ONE (09:00)
[2022-08-20] MEDS ORDERED: carvediloL 25 MG TAB PO SCH (09:00)
[2022-08-20] MEDS ORDERED: CALCITRIOL 0.25 MCG CAPSULE PO SCH (09:00)
--- NOTE | 2022-08-20 09:30 | Nephrology Consultation ---
Date of Consultation August 20, 2022 Assessment & Plan (1) Hypertensive crisis: (2) Supratherapeutic INR: (3) Anemia due to chronic kidney disease: (4) Chronic kidney disease, stage 4 (severe): (5) PVD (peripheral vascular disease): (6) Diabetes mellitus with neuropathy: (7) Hyperlipidemia: Plan Stage IV CKD, secondary to diabetic nephropathy, b/l cr 3.5 -3.7 with high- grade proteinuria at least since 2017. Blood pressure and diabetes both seems to be poorly controlled. Recent renal imaging showed left questionable left renal mass and MRI was recommended, ordered and currently waiting to be scheduled. Renal artery Doppler today showed no hemodynamically significant stenosis in right renal artery but there is concern for significant stenosis in proximal left renal artery. The Renal function slightly improved after recent GABY, creatinine around 3.3, close to baseline. Electrolyte acceptable. Blood pressure slightly improved. -- Restart on Bumex 1 mg daily, increase carvedilol to 25 mg twice a day, continue hydralazine 50 mg t.i.d. Hold renal lisinopril for now considering repeated GABY, hyperkalemia and questionable left renal artery stenosis. May need to consider vascular surgery consult for evaluation. -- Monitor renal function and electrolyte, monitor intake and output. Thank you for allowing me to participate in your patient's care. It was a pleasure to see Duran. History of Present Illness Reason for Consultation: Hypertensive crisis, stage 4 CKD. Attending Physician: Radu Morris MD History of Present Illness Mr. Duran Desai is a 66-year-old male with PMH of stage 4 CKD, DM II, HTN, HLD admitted with hypertensive crisis and supratherapeutic INR. Nephrology consult requested for further management. EMR records were reviewed in detail during visit. Duran presented to ER yesterday after he was noted to have elevated blood pressure and supratherapeutic INR 7.8 at his PCP office. in ER BP was 241/110 and treated with IV labetalol. IV vitamin K 2.5 mg was administered. He missed morning BP meds due to appointment and vomiting x 1 at home. He was recently hospitalized from 08/06-08/10 for acute on chronic diastolic CHF exacerbation, hypertensive urgency with almost 20 lb weight gain, shortness of breath, abdominal distension and b/l LE edema, was on IV Bumex and lost more than 6 kgs. Echo showed EF 45-45% with LVH. Had GABY, cr was 4.1 which slowly improved to 3.3, close to baseline. Renal ultrasound in hospital showed there is a 6 cm left renal lesion, indeterminate and recommended MRI for further evaluation. Has been off of diuretics with recent GABY as volume status has been better. Hydralazine was resumed and carvedilol dose was increased and BP slowly improved. Duran has stage IV CKD secondary to diabetic nephropathy at least since 2016 or longer, b/l cr 3.6 to 3.8 with nephrotic range proteinuria> 4 g. Prior renal imaging was otherwise unremarkable. No LE edema, hypoalbuminemia the, No anemia or hypercalcemia. SPEP, UPEP was unremarkable. No h/o autoimmune disease, skin rash, arthralgia. No h/o NSAID use. Ex smoker , quit 25 years ago, no alcohol. No f/h of chronic kidney disease or end-stage renal disease. , January 2021,had ESRD, has 2 daughters. 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 Duran has hypertension for >5 years, suboptimally controlled, on Bumex 0.5 mg bid previously was on lisinopril which was discontinued for hyperkalemia. T2DM since 1997, poorly controlled, last A1c > 9. No known history of coronary artery disease or CHF. has chronic mild right lower extremity edema since he had GBS in 2012. History of hypercoagulability disorder, had PE in 2008, has been on warfarin. Has strong family history of hypercoagulability disorder as well. b/l hip replacement in 2012 and . Overall feeling well, BP slightly improved. Allergies Allergy/AdvReac Type Severity Reaction Status Date / Time atorvastatin AdvReac Intermediate muscle Verified 08/19/22 16:29 aches bupropion [From Wellbutrin] AdvReac Intermediate vivid Verified 08/19/22 16:29 dreams and hallucinations Rribdka-CZN-JvT Reductase AdvReac Intermediate body aches Verified 08/19/22 16:29 Inhibitor [Ofgsaqf-Dgc-Rst Reductase Inhibitor] Home Medications Medication Instructions Recorded Confirmed Type gabapentin 100 mg capsule 100 mg PO TID 03/26/20 08/19/22 History glipizide 10 mg tablet 10 mg PO DAILY 03/26/20 08/19/22 History liraglutide 0.6 mg/0.1 mL (18 mg/3 1.8 mg subcut DAILY 03/26/20 08/19/22 History mL) subcutaneous pen injector (Victoza 3-Sampson) warfarin 5 mg tablet 5 mg PO QPM 03/26/20 08/19/22 History sertraline 100 mg tablet 100 mg PO DAILY 05/22/21 08/19/22 History calcitriol 0.25 mcg capsule 0.25 mcg PO 3XWK 08/06/22 08/19/22 History fenofibrate micronized 43 mg 43 mg PO DAILY 08/06/22 08/19/22 History capsule bumetanide 1 mg tablet 0.5 mg PO QAM #30 tabs 08/10/22 08/19/22 Rx carvedilol 6.25 mg tablet 6.25 mg PO BID #60 tabs 08/12/22 08/19/22 Rx hydralazine 50 mg tablet 50 mg PO TID #90 tabs 08/12/22 08/19/22 Rx Patient History Medical History Acute kidney injury Anemia due to chronic kidney disease Chronic kidney disease, stage 4 (severe) Depression, unspecified 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 HTN (hypertension) Hx pulmonary embolism Hyperkalemia Hyperlipidemia Left renal mass Obesity Postlaminectomy syndrome PVD (peripheral vascular disease) Right foot drop Stage 3b chronic kidney disease Statin intolerance Uncontrolled type 2 diabetes mellitus Vitamin D deficiency Surgical History History of back surgery History of hip surgery History of tonsillectomy Family History Brother Cancer Father Hypertension Diabetes Heart disease Dementia Mother Diabetes Social History Smoking Status: Never smoker Second Hand Exposure: No; Hx Alcohol Use: No Hx Substance Use: No Preferred Language: Mongolian Communication Ability: Effective Lesson Instructor Required: No Beliefs That Will Affect Care: None Current Living Situation: Alone Current Living Situation Comment: Patient lives in duplex and daughter lives next door and is able to help Other Information That Helps Us Care for You: No Feels Safe at Home: Yes Safety Concerns: Feels Safe At This Time Assistive Devices: Cane and Glasses Review of Systems Review of Systems: Detail ROS was otherwise unremarkable. Physical Exam Constitutional: WD/WN, vitals as above no acute distress Eyes: + anicteric sclerae Neck: normal visual inspection Respiratory: no respiratory distress Auscultation: lungs clear to auscultation bilaterally Cardiovascular: Rate/Rhythm: regular rate and regular rhythm Heart Sounds: normal S1 and normal S2 Extremities: no edema Gastrointestinal (Abdomen): Inspection/Auscultation: abdomen normal to inspection and normal bowel sounds Percussion/Palpation: abdomen soft; abdomen nontender Musculoskeletal: Extremities: extremities normal to inspection Skin: no rashes Neurologic: no focal motor deficits Psychiatric: Orientation: alert and oriented x 3 Affect: euthymic affect Results & Data ([facility]) Vital Signs (Past 12 Hours) Vital Signs Temp Pulse Pulse Resp BP Pulse Ox O2 Del Method 08/20/22 07:48 36.7 C 71 18 174/79 H 96 Room Air 08/20/22 04:05 36.3 C L 83 18 174/74 H 96 Room Air 08/19/22 23:40 36.7 C 82 20 152/67 H 97 Room Air 08/19/22 22:00 78 PG Care Time/CCT Total # of Minutes Spent Total Time Spent with Patient: Total time spent is greater than 50% in coordination of care (as documented) at patient's floor/unit and/or counseling patient: Coding Level of Care Code 31040 INT INP/OBS CARE 3/75MIN Diagnoses Hypertensive crisis I16.9 Supratherapeutic INR R79.1 Anemia due to chronic kidney disease N18.9; D63.1 Chronic kidney disease, stage 4 (severe) N18.4 PVD (peripheral vascular disease) I73.9 Diabetes mellitus with neuropathy E11.40 Hyperlipidemia E78.5
[2022-08-20] MEDS: BUMETANIDE 1 MG TAB PO SCH (09:58)
--- NOTE | 2022-08-20 11:06 | Ultrasound Report ---
DOPPLER ULTRASOUND OF THE RENAL ARTERIES CLINICAL HISTORY: Hypertensive urgency. COMPARISON STUDY: Renal ultrasound dated 08/08/2022. TECHNIQUE: Doppler sonography of the renal arteries was performed to assess renal artery stenosis. Im ages are reviewed in the transverse and longitudinal planes. FINDINGS: The kidneys appear normal in size and echotexture. The right kidney measures 11.4 cm in length and th e left kidney measures 12.5 cm in length. There is no hydronephrosis. A right lower pole cyst measure s up to 2.4 cm. On the right, intrarenal arterial resistive indices range from 0.56 to 0.68. Intrarenal arterial wave forms are normal with brisk upstrokes. The right renal arterial waveform is normal, and velocities wi thin the right renal artery measure up to 129 cm/sec. The right renal vein is patent. On the left, intrarenal arterial resistive indices range from 0.58 to 0.67. Intrarenal arterial wave forms are normal with brisk upstrokes. The left renal arterial waveform is normal. There are focally elevated velocities at the origin of the left renal artery, measuring up to 323 cm/s. The left renal vein is patent. The abdominal aorta is patent. Velocities within the abdominal aorta measure up to 138 cm/s. IMPRESSION: 1. There is no sonographic evidence of renal artery stenosis on the right. 2. There are focally elevated velocities at the origin of the left renal artery. Although this could be artifactual, hemodynamically significant stenosis is not excluded. ACT 112: Negative or not required by law. Electronically signed by: Oc Corral M.D. 08/20/2022 11:05 AM
--- NOTE | 2022-08-20 14:57 | Hospitalist Progress Note ---
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 There are focally elevated velocities at the origin of the left renal artery. Although this could be artifactual, hemodynamically significant stenosis is not excluded. -Likely will need vascular surgery evaluation as outpatient -H/O statin intolerance -Start aspirin 81 mg daily (2) Hx pulmonary embolism: Plan: Resumed Coumadin Monitor INR Needs follow-up with Coumadin clinic upon discharge (3) Supratherapeutic INR: Plan: -Elevated INR outpt coag clinic >8 INR>>7.8>>2.3 S/P vitamin K INR 2.3 today Resume Coumadin 2.5 mg today (4) Chronic diastolic CHF (congestive heart failure): Plan: Bumex resumed 1 mg daily Monitor volume status Monitor I's and O's, daily weight, volume status (5) HTN (hypertension): (6) Hyperlipidemia: Plan: -Continue statin (7) Chronic kidney disease, stage 4 (severe): Plan: Baseline creatinine 3.5-3.7 Appreciate nephrology input Avoid nephrotoxic agents as able Monitor renal function (8) Diabetes mellitus with neuropathy: Plan: - Hold home glipizide and victoza Patient states Victoza not working for him HbA1c 8.9 - ISS, Basal while hospitalized Glycemic pharmacist consulted DVT Px: Coumadin CODE STATUS: FULL CODE Admission and Anticipated Discharge Date Admission Date: August 19, 2022 Subjective Patient is seen and examined at bedside States having retrobulbar pressure-like sensation Also reports chronic dyspnea on exertion Blood pressure slightly elevated Denies any chest pain, dizziness, nausea, abdominal pain No other complaints Review of Systems Review of Systems: All systems reviewed & are unremarkable except as noted in Subjective Physical Exam Physical Exam: Physical Exam: Vitals signs as noted above General Appearance:Obese, no apparent distress Head: normocephalic, Atraumatic Eyes: normal inspection, EOMI Neck: supple, Trachea midline Respiratory/Chest: Normal breath sounds, CTA , No accessory muscle use Cardiovascular: S1, S2, No murmur Abdomen/GI:Soft, Non tender, Bowel sounds present Extremities/Musculoskeletal:normal inspection, no edema Neurologic/Psych:AAOX3, grossly no focal neurological deficits Skin: normal color, warm Results & Data Results & Data ([facility]) Vital Signs (Past 12 Hours) Vital Signs Temp Pulse Resp BP Pulse Ox O2 Del Method 08/20/22 11:53 36.8 C 75 18 176/90 H 94 Room Air 08/20/22 07:48 36.7 C 71 18 174/79 H 96 Room Air 08/20/22 04:05 36.3 C L 83 18 174/74 H 96 Room Air Laboratory Results Short CBC 08/20/22 Range/Units 06:05 WBC 5.53 (4.8-10.8) K/ul Hgb 11.5 L (14.0-18.0) g/dl Hct 33.9 L (42.0-52.0) % Plt Count 217 (130-400) K/uL BMP 08/20/22 06:05 Sodium 136 Potassium 4.8 Chloride 108 H Carbon Dioxide 22 BUN 53 H Creatinine 3.26 H Glucose 183 H Calcium 8.4 L (5) HTN (hypertension) Hypertension type: unspecified Qualified Code(s): I10 - Essential (primary) hypertension
[2022-08-20] MEDS ORDERED: PHARMACY GLYCEMIC MGMT CONSULT PRN (15:15)
[2022-08-20] MEDS ORDERED: WARFARIN SOD 2.5 MG TAB PO SCH (16:00)
[2022-08-20] MEDS: ASPIRIN 81 MG ECTAB PO SCH (16:22)
[2022-08-20] MEDS: carvediloL 25 MG TAB PO SCH (20:41)
[2022-08-20] MEDS ORDERED: LANTUS PER UNIT CHARGE SQ SCH (21:00)
[2022-08-20] MEDS ORDERED: hydrALAZINE HCL 25 MG TAB PO STA (23:08)
[2022-08-21 05:10] LABS: Hematocrit (blood only) 35.3 % (42.0-52.0); Mean Corpuscular Hemoglobin 29.4 pg (25.0-34.0); Mean Corpuscular Volume 86.5 fL (80.0-100.0); Mean Platelet Volume 9.8 fL (9.4-12.4); Platelet Count 222 K/uL (130-400); RDW Coefficient of Variation 12.6 % (11.5-14.5); RDW Standard Deviation 39.8 fL (36.4-46.3); Red Blood Count 4.08 M/uL (4.70-6.10)
[2022-08-21 05:27] LABS: BUN Creatinine Ratio 15.7 (10-20); Calcium 8.6 mg/dl (8.5-10.1); Creatinine Clr Calc Pharmacy 23.4 ml/min; Est GFR (African American) 19.6 ml/min; Est GFR (Non-African American) 16.9 ml/min; Magnesium 2.2 mg/dl (1.7-2.4); Potassium 4.7 mmol/L (3.5-5.1)
[2022-08-21 05:48] LABS: INR 1.8 (0.9-1.1); Prothrombin Time 18.3 Seconds (9.0-12.0)
[2022-08-21] MEDS: SERTRALINE HCL 100 MG TABLET PO SCH (08:06)
[2022-08-21] MEDS: FENOFIBRATE NANOCRYSTALLIZED 48 MG TABLET SCH (08:06)
[2022-08-21] MEDS: BUMETANIDE 1 MG TAB PO SCH (08:06)
[2022-08-21] MEDS: GABAPENTIN 100 MG CAP PO SCH ×3 (08:07→20:51)
[2022-08-21] MEDS: carvediloL 25 MG TAB PO SCH ×2 (08:07→20:51)
[2022-08-21] MEDS: ASPIRIN 81 MG ECTAB PO SCH (08:37)
[2022-08-21] MEDS: INSULIN ASPART PER UNIT CHARGE SC SCH ×4 (08:37→20:51)
[2022-08-21] MEDS ORDERED: hydrALAZINE HCL 25 MG TAB PO SCH (09:00)
[2022-08-21] MEDS ORDERED: SODIUM CHLORIDE 0.9% 500 ML IV ONE (09:12)
--- NOTE | 2022-08-21 10:01 | CT Scan Report ---
CT head/brain wo con CLINICAL HISTORY: Headache, Retrobulbar pressure Technique: Contiguous axial CT images of the head were acquired from the base of the skull to the katie kartik without intravenous contrast administration. Images were viewed in brain, subdural and bone [facility]. Automated dose lowering techniques and/or adjustment according to patient size were utilized for this exam. Comparison: Comparison is made to CT head 08/06/2022 Findings: Areas of decreased attenuation are present in the periventricular and subcortical white matter bilate rally consistent with small vessel ischemic disease. Generalized cerebral atrophy with commensurate e nlargement of the ventricles, sulci, and cisterns is also present. There is no acute intracranial hem orrhage or evidence of acute territorial infarction. No shift of the midline structures, mass effect, or extra-axial abnormalities are shown. Atherosclerotic calcifications are present in the intracran ial segments of the internal carotid arteries. 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 Imaged portions of the paranasal sinuses and mastoid air cells are clear. The orbits appear normal. There are no acute fractures of the calvaria or scalp swelling. Impression: No acute intracranial hemorrhage, no evidence of acute territorial infarction or other acute intracra nial disease process. ACT 112: Negative or not required by law. Electronically signed by: Prashanth Carver M.D. 08/21/2022 9:59 AM
--- NOTE | 2022-08-21 10:31 | Nephrology Progress Note ---
Date of Service August 21, 2022 Assessment & Plan (1) Hypertensive crisis: Plan: BP improved but remains above goal. Tolerating carvedilol 25 mg BID, hydralazine 50 mg TID, and Bumex 1 mg daily. Creatinine increased slightly in past 24 hours but remains near baseline. I would minimize IVF. Document I/O's and orthostatic vitals. Maintain low salt diet and dietary potassium restriction. IF BP remains elevated, maybe we could consider attempting to transition from hydralazine to a long acting dihydropyridine CCB such as amlodipine. At heart rate 68, likely reaching max carvedilol. Alternative consideration would be a low dose MRA, if potassium remains stable. (2) Chronic kidney disease, stage 4 (severe): Plan: Baseline creatinine ~3.5-3.7 mg/dL. A3 proteinuria. CKD attributed to DKD. Renal duplex did not demonstrate convincing evidence of hemodynamically significant renal artery stenosis. Overall, kidney function appears to be close to baseline. Volume status acceptable. I would avoid aggressive IVF. ELENO/ARB avoided due to history of GABY and hyperkalemia. Maintain low sodium diet. Outpatient follow up with Dr. Schafer at discharge. (3) PVD (peripheral vascular disease): Plan: Unfortunately, statin intolerant. No concerning symptoms. Risk factor modification reviewed. (4) Anemia due to chronic kidney disease: Plan: Chronic, stable. Hgb >12; ROMMEL therapy not required. (5) Diabetes mellitus: Plan: No ELENO/ARB for history of GABY and hyperkalemia. Unclear if would tolerate MRA therapy. May consider SGLT2i in the future. Close outpatient follow up will be required. Admission and Anticipated Discharge Date Admission Date: August 19, 2022 Subjective No acute events overnight. Herb reports that he has been out of bed walking in his room and working on puzzles. He feels well. Vision has normalized. No concerning visual changes appreciated at this time. He continues to experience some mild fullness in his head but no persistent headache. No chest pain or shortness of breath. No lightheadedness, dizziness, syncope or presyncope. Appetite is good. He denies fluid retention or edema. IV NSS infusing at 100 ml/hr. Review of Systems Review of Systems: All systems reviewed & are unremarkable except as noted in HPI & below Physical Exam Constitutional: well developed; no acute distress Eyes: + anicteric sclerae; pupils not irregular ENMT: Mouth: no oral mucosal abnormality and oral mucous membranes not dry Neck: normal visual inspection and trachea midline Respiratory: normal respiratory effort Auscultation: lungs clear to auscultation bilaterally Cardiovascular: Rate/Rhythm: regular rate Heart Sounds: normal S1 and normal S2 Extremities: no edema Musculoskeletal: Extremities: no cyanosis and no clubbing Skin: normal turgor; no lesions Neurologic: Motor/Sensory: no tremor and no asterixis Psychiatric: Orientation: alert and oriented x 3 Results & Data ([facility]) Vital Signs (Past 12 Hours) Vital Signs Temp Pulse Resp BP BP Pulse Ox Pulse Ox 08/21/22 08:00 08/21/22 06:34 36.9 C 68 18 167/91 H 97 08/21/22 02:46 36.7 C 70 18 189/82 H 95 08/21/22 00:00 94 08/20/22 22:53 36.7 C 74 18 173/76 H 94 O2 Del Method O2 Del Method 08/21/22 08:00 Room Air 08/21/22 06:34 Room Air 08/21/22 02:46 Room Air 08/21/22 00:00 Room Air 08/20/22 22:53 Room Air Laboratory Results Laboratory Results - last 24 hr 08/20/22 08/20/22 08/20/22 11:35 16:41 20:00 WBC RBC Hgb Hct MCV MCH MCHC RDW Std Deviation RDW Coeff of Severiano Plt Count MPV PT INR Sodium Potassium Chloride Carbon Dioxide Anion Gap BUN Creatinine Est Cr Clr Drug Dosing Est GFR ( Amer) Est GFR (Non-Af Amer) BUN/Creatinine Ratio Glucose POC Glucose 203 H 106 H 234 H Calcium Magnesium 08/21/22 08/21/22 08/21/22 04:55 04:55 04:55 WBC 5.70 RBC 4.08 L Hgb 12.0 L Hct 35.3 L MCV 86.5 MCH 29.4 MCHC 34.0 RDW Std Deviation 39.8 RDW Coeff of Severiano 12.6 Plt Count 222 MPV 9.8 PT 18.3 H INR 1.8 H Sodium 138 Potassium 4.7 Chloride 108 H Carbon Dioxide 24 Anion Gap 6 BUN 55 H Creatinine 3.51 H Est Cr Clr Drug Dosing 23.4 Est GFR ( Amer) 19.6 Est GFR (Non-Af Amer) 16.9 BUN/Creatinine Ratio 15.7 Glucose 138 H POC Glucose Calcium 8.6 Magnesium 2.2 08/21/22 08/21/22 07:55 09:04 WBC RBC Hgb Hct MCV MCH MCHC RDW Std Deviation RDW Coeff of Severiano Plt Count MPV PT INR Sodium Potassium Chloride Carbon Dioxide Anion Gap BUN Creatinine Est Cr Clr Drug Dosing Est GFR ( Amer) Est GFR (Non-Af Amer) BUN/Creatinine Ratio Glucose POC Glucose 154 H 266 H Calcium Magnesium PG Care Time/CCT Total # of Minutes Spent Total Time Spent with Patient: Total time spent is greater than 50% in coordination of care (as documented) at patient's floor/unit and/or counseling patient: Coding Level of Care Code 25460 SUB INP/OBS CARE 3/50MIN Diagnoses Hypertensive crisis I16.9 Chronic kidney disease, stage 4 (severe) N18.4 PVD (peripheral vascular disease) I73.9 Anemia due to chronic kidney disease N18.9; D63.1 Diabetes mellitus E11.9
[2022-08-21] MEDS: hydrALAZINE TAB 50 MG TAB PO SCH ×2 (13:47→20:51)
--- NOTE | 2022-08-21 14:19 | Pharmacy Report ---
Pharmacy Glycemic Short Note 2 - Date of Service August 21, 2022 - Glycemic Short BSG Results (Last 24 hours): 08/20/22 08/20/22 08/21/22 16:41 20:00 04:55 Glucose 138 H POC Glucose 106 H 234 H 08/21/22 08/21/22 08/21/22 07:55 09:04 11:43 Glucose POC Glucose 154 H 266 H 201 H OUTPATIENT ANTIDIABETIC REGIMEN: * Victoza * glipizide 10 mg daily * HbA1C = 8.9% (08/06/22) ASSESSMENT: * Mr Desai is a 67 y/o M with a PMH of T2DM who presents with a hypertensive crisis. * The patient's BSGs on day of admission were [phone] mg/dL. Patient received 35 units of insulin (16 units of basal and 19 units of bolus). * Continue Lantus 16 units nightly. Per last admission in July, providers had titrated up to 15 units so this should be appropriate as a starting point. * BSGs today have been 154-201 mg/dL. * Tighten CR as BSGs trending upwards. This is appropriate as patient is on sulfonylurea at home - these patients oftentimes require a very tight carbohydrate ratio. Currently at weight-based stress of 3. Did not tighten CF as patient corrects appropriately with elevated BSGs. PLAN FOR INPATIENT GLYCEMIC CONTROL: * Basal insulin * Lantus 16 units SQ HS * Bolus insulin * NovoLog per scale ACHS or Q6hrs while NPO * Goal Range: Low 110 mg/dL - High 140 mg/dL * Correction Factor: 25 mg/dL/unit * Nutritional / Prandial insulin per carb ratio of 1 unit per 5 grams CHO consumed
[2022-08-21] MEDS: WARFARIN SOD 3 MG TAB PO SCH (17:24)
--- NOTE | 2022-08-21 17:26 | Hospitalist Progress Note ---
Date of Service August 21, 2022 Assessment & Plan (1) Hypertensive crisis: Plan: Continue hydralazine 50 mg 3 times a day Carvedilol dose increased to 25 mg twice a day Hold lisinopril for now due to hyperkalemia Restarted Bumex 1 mg daily Appreciate nephrology input Monitor BP Patient sensitive to aggressive antihypertensives, so we will continue meds with current doses Chronic troponin elevation likely Type II MT secondary to hypertensive Crisis Denies chest pain PVD Suspected left renal artery stenosis -Renal artery duplex:There is no sonographic evidence of renal artery stenosis on the right. There are focally elevated velocities at the origin of the left renal artery. Although this could be artifactual, hemodynamically significant stenosis is not excluded. -Likely will need vascular surgery evaluation as outpatient -H/O statin intolerance -Started aspirin 81 mg daily (2) Hx pulmonary embolism: Plan: Resumed Coumadin Monitor INR Needs follow-up with Coumadin clinic upon discharge (3) Supratherapeutic INR: Plan: -Elevated INR outpt coag clinic >8 INR>>7.8>>2.3>1.8 S/P vitamin K Give Coumadin 3mg today (4) Chronic diastolic CHF (congestive heart failure): Plan: Bumex resumed 1 mg daily Monitor volume status Monitor I's and O's, daily weight, volume status (5) HTN (hypertension): (6) Hyperlipidemia: Plan: -Continue statin (7) Chronic kidney disease, stage 4 (severe): Plan: Baseline creatinine 3.5-3.7 Appreciate nephrology input Avoid nephrotoxic agents as able Monitor renal function Cr 3.5 today (8) Diabetes mellitus with neuropathy: Plan: - Hold home glipizide and victoza Patient states Victoza not working for him HbA1c 8.9 - ISS, Basal while hospitalized Glycemic pharmacist consulted DVT Px: Coumadin CODE STATUS: FULL CODE Admission and Anticipated Discharge Date Admission Date: August 19, 2022 Subjective Patient is seen and examined at bedside Transient nausea, dizziness this morning Retrobulbar pressure resolved No other complaints Hypotensive this morning, improved with gentle IV fluids Hydralazine increased to 75 mg overnight Denies any chest pain, dizziness, nausea, abdominal pain Review of Systems Review of Systems: All systems reviewed & are unremarkable except as noted in Subjective Physical Exam Physical Exam: Physical Exam: Vitals signs as noted above General Appearance:Obese, no apparent distress Head: normocephalic, Atraumatic Eyes: normal inspection, EOMI Neck: supple, Trachea midline Respiratory/Chest: Normal breath sounds, CTA , No accessory muscle use Cardiovascular: S1, S2, No murmur Abdomen/GI:Soft, Non tender, Bowel sounds present Extremities/Musculoskeletal:normal inspection, no edema Neurologic/Psych:AAOX3, grossly no focal neurological deficits Skin: normal color, warm Results & Data Results & Data ([facility]) Vital Signs (Past 12 Hours) Vital Signs Temp Pulse Resp BP Pulse Ox O2 Del Method O2 Del Method 08/21/22 16:00 Room Air 08/21/22 15:44 36.7 C 69 19 151/73 H 96 Room Air 08/21/22 11:16 36.8 C 73 19 166/80 H 97 Room Air 08/21/22 08:00 Room Air 08/21/22 06:34 36.9 C 68 18 167/91 H 97 Room Air Laboratory Results Short CBC 08/21/22 Range/Units 04:55 WBC 5.70 (4.8-10.8) K/ul Hgb 12.0 L (14.0-18.0) g/dl Hct 35.3 L (42.0-52.0) % Plt Count 222 (130-400) K/uL BMP 08/21/22 04:55 Sodium 138 Potassium 4.7 Chloride 108 H Carbon Dioxide 24 BUN 55 H Creatinine 3.51 H Glucose 138 H Calcium 8.6 (5) HTN (hypertension) Hypertension type: unspecified Qualified Code(s): I10 - Essential (primary) hypertension
[2022-08-21] MEDS ORDERED: LANTUS PER UNIT CHARGE SQ SCH (21:00)
[2022-08-22 05:01] LABS: Hematocrit (blood only) 33.4 % (42.0-52.0); Hemoglobin 11.4 g/dl (14.0-18.0); Mean Corpuscular Hemoglobin 29.6 pg (25.0-34.0); Mean Corpuscular Hgb Conc 34.1 g/dL (32.0-36.0); Mean Corpuscular Volume 86.8 fL (80.0-100.0); Mean Platelet Volume 10.4 fL (9.4-12.4); Platelet Count 213 K/uL (130-400); RDW Coefficient of Variation 12.7 % (11.5-14.5); RDW Standard Deviation 40.6 fL (36.4-46.3); Red Blood Count 3.85 M/uL (4.70-6.10); White Blood Count 5.59 K/ul (4.8-10.8)
[2022-08-22 05:12] LABS: BUN Creatinine Ratio 16.9 (10-20); Calcium 8.4 mg/dl (8.5-10.1); Est GFR (African American) 18.5 ml/min; Magnesium 2.3 mg/dl (1.7-2.4); Potassium 4.4 mmol/L (3.5-5.1)
[2022-08-22 05:43] LABS: Prothrombin Time 20.5 Seconds (9.0-12.0)
[2022-08-22] MEDS: carvediloL 25 MG TAB PO SCH (08:10)
[2022-08-22] MEDS: ASPIRIN 81 MG ECTAB PO SCH (08:11)
[2022-08-22] MEDS: SERTRALINE HCL 100 MG TABLET PO SCH (08:11)
[2022-08-22] MEDS: GABAPENTIN 100 MG CAP PO SCH ×2 (08:11→14:09)
[2022-08-22] MEDS: hydrALAZINE TAB 50 MG TAB PO SCH ×2 (08:11→14:09)
[2022-08-22] MEDS: FENOFIBRATE NANOCRYSTALLIZED 48 MG TABLET SCH (08:11)
[2022-08-22] MEDS: BUMETANIDE 1 MG TAB PO SCH (08:11)
[2022-08-22] MEDS: INSULIN ASPART PER UNIT CHARGE SC SCH ×2 (08:14→12:33)
[2022-08-22] MEDS ORDERED: amLODIPine BESYLATE 5 MG TAB PO SCH (10:15)
--- NOTE | 2022-08-22 10:24 | Electrocardiogram Report ---
Test Reason : Blood Pressure : / mmHG Vent. Rate : 069 BPM Atrial Rate : 069 BPM P-R Int : 196 ms QRS Dur : 094 ms QT Int : 446 ms P-R-T Axes : 055 026 155 degrees QTc Int : 477 ms Normal sinus rhythm Prolonged QT Abnormal ECG When compared with ECG of 19-AUG-2022 14:05, ST depressed in V3 and V4 T wave inversion now evident in Anterior leads Confirmed by Johann Gill [id number]) on 08/22/2022 10:24:04 AM Referred By: Asaf Younger Confirmed By:Johann Gill
--- NOTE | 2022-08-22 13:12 | Nephrology Progress Note ---
Date of Service August 22, 2022 Assessment & Plan (1) Hypertensive crisis: Plan: BP improved and relatively acceptable this AM. Appears to be tolerating carvedilol 25 mg BID, hydralazine 50 mg TID, and Bumex 1 mg relatively well. Creatinine stable. If Herb is feeling reasonably well, I would consider discharge home with close outpatient follow up with Dr. Schafer. (2) Chronic kidney disease, stage 4 (severe): Plan: Baseline creatinine ~3.5-3.7 mg/dL. A3 proteinuria. CKD attributed to DKD. Renal duplex did not demonstrate convincing evidence of hemodynamically significant renal artery stenosis. Overall, kidney function appears to be close to baseline. Volume status acceptable. ELENO/ARB avoided due to history of GABY and hyperkalemia. Maintain low sodium diet. Outpatient follow up with Dr. Schafer at discharge. (3) PVD (peripheral vascular disease): Plan: Unfortunately, statin intolerant. No concerning symptoms. (4) Diabetes mellitus: Plan: No ELENO/ARB for history of GABY and hyperkalemia. Unclear if would tolerate MRA therapy. May consider SGLT2i in the future. Close outpatient follow up will be required. Admission and Anticipated Discharge Date Admission Date: August 19, 2022 Subjective No acute events overnight. Herb was out of bed to the bathroom this AM. I reviewed recent history with RN. Noted episode of symptomatic hypotension yesterday AM after taking antihypertensives. No complaints this AM. Review of Systems Review of Systems: All systems reviewed & are unremarkable except as noted in HPI & below Physical Exam Constitutional: WD/WN, vitals as above Results & Data ([place]) Vital Signs (Past 12 Hours) Vital Signs Temp Pulse Resp BP Pulse Ox O2 Del Method O2 Del Method 08/22/22 12:14 36.6 C 70 18 155/74 H 97 Room Air 08/22/22 08:00 Room Air 08/22/22 06:42 36.8 C 68 18 173/81 H 96 Room Air 08/22/22 04:05 36.6 C 68 18 180/70 H 96 Room Air Laboratory Results Laboratory Results - last 24 hr 08/21/22 08/21/22 08/22/22 16:35 20:03 04:31 WBC RBC Hgb Hct MCV MCH MCHC RDW Std Deviation RDW Coeff of Severiano Plt Count MPV PT 20.5 H INR 2.0 H Sodium Potassium Chloride Carbon Dioxide Anion Gap BUN Creatinine Est Cr Clr Drug Dosing Est GFR ( Amer) Est GFR (Non-Af Amer) BUN/Creatinine Ratio Glucose POC Glucose 91 157 H Calcium Magnesium 08/22/22 08/22/22 08/22/22 04:31 04:31 07:34 WBC 5.59 RBC 3.85 L Hgb 11.4 L Hct 33.4 L MCV 86.8 MCH 29.6 MCHC 34.1 RDW Std Deviation 40.6 RDW Coeff of Severiano 12.7 Plt Count 213 MPV 10.4 PT INR Sodium 136 Potassium 4.4 Chloride 108 H Carbon Dioxide 22 Anion Gap 6 BUN 62 H Creatinine 3.67 H Est Cr Clr Drug Dosing 22.0 Est GFR ( Amer) 18.5 Est GFR (Non-Af Amer) 16.0 BUN/Creatinine Ratio 16.9 Glucose 183 H POC Glucose 134 H Calcium 8.4 L Magnesium 2.3 08/22/22 11:51 WBC RBC Hgb Hct MCV MCH MCHC RDW Std Deviation RDW Coeff of Severiano Plt Count MPV PT INR Sodium Potassium Chloride Carbon Dioxide Anion Gap BUN Creatinine Est Cr Clr Drug Dosing Est GFR ( Amer) Est GFR (Non-Af Amer) BUN/Creatinine Ratio Glucose POC Glucose 127 H Calcium Magnesium PG Care Time/CCT Total # of Minutes Spent Total Time Spent with Patient: Total time spent is greater than 50% in coordination of care (as documented) at patient's floor/unit and/or counseling patient: Coding Level of Care Code 44906 SUB INP/OBS CARE 3/50MIN Diagnoses Hypertensive crisis I16.9 Chronic kidney disease, stage 4 (severe) N18.4 PVD (peripheral vascular disease) I73.9 Diabetes mellitus E11.9
--- NOTE | 2022-08-22 14:28 | Hospitalist Progress Note ---
Date of Service August 22, 2022 Assessment & Plan (1) Hypertensive crisis: Plan: Continue hydralazine 50 mg 3 times a day Carvedilol dose increased to 25 mg twice a day Hold lisinopril for now due to hyperkalemia Restarted Bumex 1 mg daily Added Amlodipine 2.5 my daily Appreciate nephrology input BP better Needs follow-up with nephrology upon discharge Chronic troponin elevation likely Type II CT secondary to hypertensive Crisis Denies chest pain PVD Suspected left renal artery stenosis -Renal artery duplex:There is no sonographic evidence of renal artery stenosis on the right. There are focally elevated velocities at the origin of the left renal artery. Although this could be artifactual, hemodynamically significant stenosis is not excluded. -Likely will need vascular surgery evaluation as outpatient -H/O statin intolerance -Started aspirin 81 mg daily (2) Hx pulmonary embolism: Plan: Resumed Coumadin Monitor INR Needs follow-up with Coumadin clinic upon discharge (3) Supratherapeutic INR: Plan: -Elevated INR outpt coag clinic >8 INR>>7.8>>2.3>1.8>2.0 S/P vitamin K Continue Coumadin 3mg daily (4) Chronic diastolic CHF (congestive heart failure): Plan: Bumex resumed 1 mg daily Monitor volume status Monitor I's and O's, daily weight, volume status (5) HTN (hypertension): (6) Hyperlipidemia: Plan: -Continue statin (7) Chronic kidney disease, stage 4 (severe): Plan: Baseline creatinine 3.5-3.7 Appreciate nephrology input Avoid nephrotoxic agents as able Monitor renal function Cr 3.6 today (8) Diabetes mellitus with neuropathy: Plan: - Hold home glipizide and victoza Patient states Victoza not working for him HbA1c 8.9 - ISS, Basal while hospitalized Glycemic pharmacist consulted DVT Px: Coumadin CODE STATUS: FULL CODE Disposition Home Admission and Anticipated Discharge Date Admission Date: August 19, 2022 Subjective Patient is seen and examined at bedside Feels well today No complaints BP better today Discussed with Nephrology today Denies any chest pain, dyspnea, dizziness, nausea, abdominal pain Plan to discharge home today Review of Systems Review of Systems: All systems reviewed & are unremarkable except as noted in Subjective Physical Exam Physical Exam: Physical Exam: Vitals signs as noted above General Appearance:Obese, no apparent distress Head: normocephalic, Atraumatic Eyes: normal inspection, EOMI Neck: supple, Trachea midline Respiratory/Chest: Normal breath sounds, CTA , No accessory muscle use Cardiovascular: S1, S2, No murmur Abdomen/GI:Soft, Non tender, Bowel sounds present Extremities/Musculoskeletal:normal inspection, no edema Neurologic/Psych:AAOX3, grossly no focal neurological deficits Skin: normal color, warm Results & Data Results & Data ([facility]) Vital Signs (Past 12 Hours) Vital Signs Temp Pulse Resp BP Pulse Ox O2 Del Method O2 Del Method 08/22/22 12:14 36.6 C 70 18 155/74 H 97 Room Air 08/22/22 08:00 Room Air 08/22/22 06:42 36.8 C 68 18 173/81 H 96 Room Air 08/22/22 04:05 36.6 C 68 18 180/70 H 96 Room Air Laboratory Results Short CBC 08/22/22 Range/Units 04:31 WBC 5.59 (4.8-10.8) K/ul Hgb 11.4 L (14.0-18.0) g/dl Hct 33.4 L (42.0-52.0) % Plt Count 213 (130-400) K/uL BMP 08/22/22 04:31 Sodium 136 Potassium 4.4 Chloride 108 H Carbon Dioxide 22 BUN 62 H Creatinine 3.67 H Glucose 183 H Calcium 8.4 L (5) HTN (hypertension) Hypertension type: unspecified Qualified Code(s): I10 - Essential (primary) hypertension
--- NOTE | 2022-08-22 14:43 | Discharge Summary ---
Date of Service August 22, 2022 Admission HPI Per Admitting Provider This is a 66-year-old male with PMH CKD IV, DM II, HTN, HLD, anemia chronic disease, history of PE anticoagulated on warfarin. Patient was recently hospitalized from 08/06-08/10 for acute on chronic diastolic CHF exacerbation, hypertensive urgency where he was seen in conjunction with nephrology here. Today the patient presented from outpatient PCP office for elevated blood pressure, here is 241/110, which is being treated with IV labetalol. He missed morning BP meds due to appointment and then being sent here. He did take carvedilol 6.25 mg BID and hydralazine 50 mg TID yesterday. It was noted that hydralazine was discontinued on discharge last time, however he restarted it after going home per instruction by a physician whom he can't recall. His creatinine has improved since his last admission, currently 3.32. His INR is noted to be supratherapeutic at 7.8, IV vitamin K 2.5 mg was administered in the ER. No current signs of bleeding. He was discharged home with 5 mg daily, and has been following with coag clinic at [facility] in [place], and there is was over 8 this morning. He reports his blood pressure checks at home have been elevated for about 3-4 days,as high as systolic in the 180s-200s. He denies chest pain, headache, lightheadedness or dizziness. He admits to having shortness of breath but feels it is still better than when he was last in the hospital. He has not been taking any diuretic since the last admission due to instruction by Dr. Schafer, whom he saw last Tuesday, 08/13. Has been vomiting once per week, no real known factor triggering this. He has tried taking the pills with food in his stomach and someday tries on an empty stomach. This has been 2 or 3 times since he last left the hospital. Denies abdominal, pain, diarrhea or constipation, no fever sweats or chills. Denies consumption of raw or undercooked meats, no old leftovers, no known sick contacts, is on city water. Admission Exam Per Admitting Provider Physical Exam Physical Exam: General: awake, alert, no apparent distress, + obese Head: Normocephalic, atraumatic ENT: PERRL, EOMI, no pharyngeal exudate, mucous membranes moist Chest: Clear to auscultation, on room air, no adventitious breath sounds Cardiac: Regular rate and rhythm, no murmur, no JVD, normal peripheral pulses, good capillary refill Abdominal: NABS x 4 quadrants, soft, nondistended, nontender to palpation, no rebound or guarding Extremities: Normal inspection, RLE with trace peripheral edema, no edema in the LLE, no erythema, calfs nontender to palpation Psych: Normal mood and affect Neuro: AAO x 3, strength intact bilaterally and rated 5/5, no motor deficits, speech is clear, no peripheral sensory deficits Principal Diagnosis Hypertensive crisis Suspected left renal artery stenosis Supratherapeutic INR CKD IV Discharge Data Allergies Allergy/AdvReac Type Severity Reaction Status Date / Time atorvastatin AdvReac Intermediate muscle Verified 08/19/22 16:29 aches bupropion [From Wellbutrin] AdvReac Intermediate vivid Verified 08/19/22 16:29 dreams and hallucinations Mqaovpk-NSN-KdA Reductase AdvReac Intermediate body aches Verified 08/19/22 16:29 Inhibitor [Gsjirlw-Obd-Dwv Reductase Inhibitor] Consultations 08/19/22 15:55 ED Decision to Admit Stat 08/19/22 16:52 Consult Nephrology Routine Procedures Performed Laboratory Results WBC 5.59 K/ul (4.8-10.8) 08/22/22 04:31 RBC 3.85 M/uL (4.70-6.10) L 08/22/22 04:31 Hgb 11.4 g/dl (14.0-18.0) L 08/22/22 04:31 Hct 33.4 % (42.0-52.0) L 08/22/22 04:31 MCV 86.8 fL (80.0-100.0) 08/22/22 04:31 MCH 29.6 pg (25.0-34.0) 08/22/22 04:31 MCHC 34.1 g/dL (32.0-36.0) 08/22/22 04:31 RDW Std Deviation 40.6 fL (36.4-46.3) 08/22/22 04:31 RDW Coeff of Severiano 12.7 % (11.5-14.5) 08/22/22 04:31 Plt Count 213 K/uL (130-400) 08/22/22 04:31 MPV 10.4 fL (9.4-12.4) 08/22/22 04:31 Immature Gran % (Auto) 0.3 % 08/19/22 12: Neut % (Auto) 69.6 % 08/19/22 12: Lymph % (Auto) 20.8 % 08/19/22 12: [place] % (Auto) 6.4 % 08/19/22 12: Eos % (Auto) 1.7 % 08/19/22 12: Baso % (Auto) 1.2 % 08/19/22 12: Neut # (Auto) 4.54 K/uL (1.40-6.50) 08/19/22 12: Lymph # (Auto) 1.36 K/uL (1.2-3.4) 08/19/22 12: [place] # (Auto) 0.42 K/uL (0.11-0.59) 08/19/22 12: Eos # (Auto) 0.11 K/uL (0-0.50) 08/19/22 12: Baso # (Auto) 0.08 K/uL (0-0.2) 08/19/22 12: Immature Gran # (Auto) 0.02 K/uL (0.01-0.20) 08/19/22 12: PT 20.5 Seconds (9.0-12.0) H 08/22/22 04:31 INR 2.0 (0.9-1.1) H 08/22/22 04:31 APTT 57.3 Seconds (21.0-31.0) H* 08/19/22 12: PTT Ratio 2.1 08/19/22 12: Sodium 136 mmol/L (136-145) 08/22/22 04:31 Potassium 4.4 mmol/L (3.5-5.1) 08/22/22 04:31 Chloride 108 mmol/L (98-107) H 08/22/22 04:31 Carbon Dioxide 22 mmol/L (21-32) 08/22/22 04:31 Anion Gap 6 (3-11) 08/22/22 04:31 BUN 62 mg/dl (6-23) H 08/22/22 04:31 Creatinine 3.67 mg/dl (0.6-1.4) H 08/22/22 04:31 Est Cr Clr Drug Dosing 22.0 ml/min 08/22/22 04:31 Est GFR ( Amer) 18.5 ml/min 08/22/22 04:31 Est GFR (Non-Af Amer) 16.0 ml/min 08/22/22 04:31 BUN/Creatinine Ratio 16.9 (10-20) 08/22/22 04:31 Glucose 183 mg/dl (70-99(Fasting)) H 08/22/22 04:31 POC Glucose 127 mg/dl (70-99) H 08/22/22 11:51 Calcium 8.4 mg/dl (8.5-10.1) L 08/22/22 04:31 Phosphorus 4.2 mg/dl (2.5-4.9) 08/20/22 06:05 Magnesium 2.3 mg/dl (1.7-2.4) 08/22/22 04:31 Total Bilirubin 0.3 mg/dl (0.2-1.0) 08/19/22 12:28 AST 14 U/L (13-39) 08/19/22 12:28 ALT 9 U/L (7-52) 08/19/22 12:28 Alkaline Phosphatase 64 U/L (34-104) 08/19/22 12:28 Troponin I High Sens 32.0 pg/ml (0-20) H 08/19/22 14:07 B-Natriuretic Peptide 210 pg/ml (0-100) H 08/19/22 12:45 Total Protein 6.1 gm/dl (6.0-8.3) 08/19/22 12:28 Albumin 3.4 gm/dl (3.4-5.0) 08/19/22 12:28 Globulin 2.7 gm/dl (2.5-4.0) 08/19/22 12:28 Albumin/Globulin Ratio 1.3 (0.9-2) 08/19/22 12:28 Lipase 169 U/L (11-82) H 08/19/22 12:28 SARS-CoV-2, RNA, NAAT NEGATIVE (NEGATIVE) 08/19/22 12:45 Impressions Chest X-Ray 03/09/23 12:36 SINGLE VIEW CHEST CLINICAL HISTORY: Atypical chest pain. FINDINGS: An AP, portable, upright chest radiograph is compared to study dated 08/06/2022. The heart is enlarged. The pulmonary vasculature is noncongested. The lungs and pleural spaces are clear. No pneumothorax is seen. The skeletal structures are osteopenic. There are chronic/healed left-sided rib fractures. IMPRESSION: Cardiomegaly with no active disease in the chest. ACT 112: Negative or not required by law. Electronically signed by: Oc Corral M.D. 08/19/2022 12:53 PM Renal Artery Duplex 08/20/22 08:17 DOPPLER ULTRASOUND OF THE RENAL ARTERIES CLINICAL HISTORY: Hypertensive urgency. COMPARISON STUDY: Renal ultrasound dated 08/08/2022. TECHNIQUE: Doppler sonography of the renal arteries was performed to assess renal artery stenosis. Images are reviewed in the transverse and longitudinal planes. FINDINGS: The kidneys appear normal in size and echotexture. The right kidney measures 11.4 cm in length and the left kidney measures 12.5 cm in length. There is no hydronephrosis. A right lower pole cyst measures up to 2.4 cm. On the right, intrarenal arterial resistive indices range from 0.56 to 0.68. Intrarenal arterial waveforms are normal with brisk upstrokes. The right renal arterial waveform is normal, and velocities within the right renal artery measure up to 129 cm/sec. The right renal vein is patent. On the left, intrarenal arterial resistive indices range from 0.58 to 0.67. Intrarenal arterial waveforms are normal with brisk upstrokes. The left renal arterial waveform is normal. There are focally elevated velocities at the origin of the left renal artery, measuring up to 323 cm/s. The left renal vein is pa tent. The abdominal aorta is patent. Velocities within the abdominal aorta measure up to 138 cm/s. IMPRESSION: 1. There is no sonographic evidence of renal artery stenosis on the right. 2. There are focally elevated velocities at the origin of the left renal artery. Although this could be artifactual, hemodynamically significant stenosis is not excluded. ACT 112: Negative or not required by law. Electronically signed by: Oc Corral M.D. 08/20/2022 11:[address] 08/21/22 09:16 CT head/brain wo con CLINICAL HISTORY: Headache, Retrobulbar pressure Technique: Contiguous axial CT images of the head were acquired from the base of the skull to the vertex without intravenous contrast administration. Images were viewed in brain, subdural and bone windows. Automated dose lowering techniques and/or adjustment according to patient size were utilized for this exam. Comparison: Comparison is made to CT head 08/06/2022 Findings: Areas of decreased attenuation are present in the periventricular and subcortical white matter bilaterally consistent with small vessel ischemic disease. Generalized cerebral atrophy with commensurate enlargement of the ventricles, sulci, and cisterns is also present. There is no acute intracranial hemorrhage or evidence of acute territorial infarction. No shift of the midline structures, mass effect, or extra-axial abnormalities are shown. Atherosclerotic calcifications are present in the intracranial segments of the internal carotid arteries. 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 Imaged portions of the paranasal sinuses and mastoid air cells are clear. The orbits appear normal. There are no acute fractures of the calvaria or scalp swelling. Impression: No acute intracranial hemorrhage, no evidence of acute territorial infarction or other acute intracranial disease process. ACT 112: Negative or not required by law. Electronically signed by: Prashanth Carver M.D. 08/21/2022 9:59 AM Ordered Studies 08/20/22 08:17 US doppler renal [US duplex renal artery] Routine 08/21/22 09:16 CT head/brain wo con Urgent Hospital Course (1) Hypertensive crisis: Continue hydralazine 50 mg 3 times a day Carvedilol dose increased to 25 mg twice a day Hold lisinopril for now due to hyperkalemia Restarted Bumex 1 mg daily Added Amlodipine 2.5 my daily Appreciate nephrology input BP better Needs follow-up with nephrology upon discharge Chronic troponin elevation likely Type II PR secondary to hypertensive Crisis Denies chest pain PVD Suspected left renal artery stenosis -Renal artery duplex:There is no sonographic evidence of renal artery stenosis on the right. There are focally elevated velocities at the origin of the left renal artery. Although this could be artifactual, hemodynamically significant stenosis is not excluded. -Likely will need vascular surgery evaluation as outpatient -H/O statin intolerance -Started aspirin 81 mg daily (2) Hx pulmonary embolism: Resumed Coumadin Monitor INR Needs follow-up with Coumadin clinic upon discharge (3) Supratherapeutic INR: -Elevated INR outpt coag clinic >8 INR>>7.8>>2.3>1.8>2.0 S/P vitamin K Continue Coumadin 3mg daily (4) Chronic diastolic CHF (congestive heart failure): Bumex resumed 1 mg daily Monitor volume status Monitor I's and O's, daily weight, volume status (5) HTN (hypertension): (6) Hyperlipidemia: -Continue statin (7) Chronic kidney disease, stage 4 (severe): Baseline creatinine 3.5-3.7 Appreciate nephrology input Avoid nephrotoxic agents as able Monitor renal function Cr 3.6 today (8) Diabetes mellitus with neuropathy: - Hold home glipizide and victoza Patient states Victoza not working for him HbA1c 8.9 - ISS, Basal while hospitalized Glycemic pharmacist consulted DVT Px: Coumadin CODE STATUS: FULL CODE Disposition Home Total Time Total Time Spent Total Time Spent (In Minutes): 56 minutes Discharge Plan Discharge Items Patient Disposition: Home - Self-Care Reason For Visit: HYPERTENSIVE URGENCY Discharge Diagnosis: Hypertensive crisis Suspected left renal artery stenosis Supratherapeutic INR CKD IV Activity: Per Instructions section Exercise/Sports: Gradually increase as tolerated Non-emergency contact: Primary Care Provider and Bridge Operator Call non-emergency contact if: you have any medication questions, your symptoms worsen, your pain is concerning for you and you have a fever Follow-up/Referrals: Asaf Younger MD [Primary Care Provider] - 08/25/22 1:30 pm Diet: Carb Consistent or DM2 and Heart Healthy Addtl Attending Provider Instructions: Follow-up with your primary care physician Dr. Younger on 06/27/2022 at 1:30 PM Follow-up with your bander hand Dr. Schafer in 1 week as advised Consider following with your vascular surgeon for further evaluation of suspected left renal artery stenosis. Follow-up with Coumadin clinic in 2 to 3 days for managing your PT/INR and Coumadin dosing Medication Changes: 1) Carvedilol dose is increased to 25 mg twice a day 2) Start taking amlodipine 2.5 mg daily 3) Bumex dose is increased to 1 mg daily 4) Take Coumadin 3 mg daily until follow-up with Coumadin clinic in 2 to 3 days. Further dosing of your Coumadin as per Coumadin clinic. 5) Start taking aspirin 81 mg daily ----Obtain blood test PT/INR in 2 to 3 days and follow-up with Coumadin clinic as advised. Seek immediate medical attention if your symptoms reoccur or worsen Please take all medications as instructed on discharge list below. Please call if you have any questions or problems. You can reach a [facility] hospitalist on duty at [facility] 24 hours a day by calling [phone] Pending Studies at Discharge: No Stand-Alone Forms: My [facility], Smoking Cessation Medications and DC Order Prescriptions: New carvedilol 25 mg Tablet 25 mg PO BID Qty: 60 1RF amlodipine [Norvasc] 5 mg Tablet 2.5 mg PO QAM Qty: 30 1RF aspirin 81 mg Tablet,Delayed Release (Dr/Ec) 81 mg PO QAM Qty: 30 0RF warfarin 2 mg tablet 2 mg PO UD Qty: 60 0RF Rx Instructions: As directed warfarin 1 mg tablet 1 mg PO UD Qty: 60 0RF Rx Instructions: As directed Continued hydralazine 50 mg tablet 50 mg PO TID Qty: 90 2RF gabapentin 100 mg capsule 100 mg PO TID glipizide 10 mg tablet 10 mg PO DAILY Victoza 3-Sampson 0.6 mg/0.1 mL (18 mg/3 mL) pen injector 1.8 mg subcut DAILY Rx Instructions: PER PT "MAY BE STOPPING THIS MED OCCURRING TO MD". sertraline 100 mg tablet 100 mg PO DAILY calcitriol 0.25 mcg capsule 0.25 mcg PO 3XWK Rx Instructions: TAKES MON, WED, & FRI. fenofibrate micronized 43 mg capsule 43 mg PO DAILY Changed bumetanide 1 mg Tablet 1 mg PO QAM Qty: 30 1RF Discontinued carvedilol 6.25 mg tablet 6.25 mg PO BID Qty: 60 2RF warfarin 5 mg tablet 5 mg PO QPM Rx Instructions: 5 mg PO as directed; PER PT "USUALLY TAKES 5 MG ALTERNATING WITH 2.5 MG, SINCE LAST HOSPITAL VISIT, WAS TAKING 5 MG EVERY EVENING". Discharge Orders: Discharge Order (Routine); Ordered 08/22/22 Ordered By: Radu Morris Admission Data Admit Date/Time: 03/09/23 16:51 Attending Provider: Radu Morris Admit Provider: Keyana Coats I. Primary Care Provider: Asaf Younger Other Providers: Keyana Coats I. ; Mavis Schafer
[2022-08-22] MEDS: WARFARIN SOD 3 MG TAB PO SCH (17:23)
== END 2022-08-22 17:23 | disposition home or self-care (01) | DRG 281 ==
LOC: ED 12:14 → 4W 16:51 → SUATTDRO 16:51 → 4W 18:42

== ENCOUNTER 2023-09-21 20:43 | Observation (INO) ==
[2023-09-21 22:10] LABS: Basophils # (auto) 0.06 K/uL (0.00-0.20); Basophils % (auto) 1.1 %; Eosinophils # (auto) 0.11 K/uL (0.00-0.50); Eosinophils % (auto) 1.9 %; Hematocrit (blood only) 31.9 % (42.0-52.0); Hemoglobin 10.3 g/dl (14.0-18.0); Immature Granulocytes # (auto) 0.02 K/uL (0.01-0.20); Immature Granulocytes % (auto) 0.4 %; Lymphocytes % (auto) 21.1 %; Mean Corpuscular Hemoglobin 29.5 pg (25.0-34.0); Mean Corpuscular Hgb Conc 32.3 g/dL (32.0-36.0); Mean Corpuscular Volume 91.4 fL (80.0-100.0); Mean Platelet Volume 10.5 fL (9.4-12.4); Monocytes # (auto) 0.37 K/uL (0.11-0.59); Monocytes % (auto) 6.5 %; Neutrophils # (auto) 3.94 K/uL (1.40-6.50); Platelet Count 183 K/uL (130-400); RDW Coefficient of Variation 13.3 % (11.5-14.5); Red Blood Count 3.49 M/uL (4.70-6.10)
[2023-09-21 22:19] LABS: Alanine Aminotransferase 16 U/L (7-52); Albumin Globulin Ratio 1.7 (0.9-2); Alkaline Phosphatase 32 U/L (34-104); Anion Gap 8 (3-11); Aspartate Aminotransferase 23 U/L (13-39); BUN Creatinine Ratio 15.2 (10-20); Bilirubin,Total 0.3 mg/dl (0.2-1.0); Blood Urea Nitrogen 70 mg/dl (6-23); Calcium 9.2 mg/dl (8.6-10.3); Carbon Dioxide 22 mmol/L (21-32); Chloride 109 mmol/L (98-107); Est GFR (African American) 13.9 ml/min; Globulin 2.4 gm/dl (2.5-4.0); Glucose 216 mg/dl (70-99(Fasting)); Potassium 4.5 mmol/L (3.5-5.1); Sodium 139 mmol/L (136-145); Total Protein 6.4 gm/dl (6.0-8.3)
[2023-09-21 22:28] LABS: Troponin I High Sensitivity 24.6 pg/ml (0-20)
[2023-09-21 22:36] LABS: INR 2.4 (0.9-1.1); Partial Thromboplastin Ratio 1.5; Partial Thromboplastin Time 42 Seconds (21-31)
--- NOTE | 2023-09-22 00:04 | Emergency Department Note ---
ED Visit Note I was consulted by the Advanced Practice Provider Arlette Fraire PA-C. I personally made/approved the management plan and take responsibility for the patient management. I performed a substantive portion of the visit. This includes the aspects of: -History -MDM -I independently interpreted the following studies: Studies and results Patient was admitted due to concern for exertional chest pain. .
--- NOTE | 2023-09-22 00:07 | CT Scan Report ---
Exam(s): CT HEAD Without Contrast EXAM: CT Head Without Intravenous Contrast CLINICAL HISTORY: Reason for exam: ARAGON on coumadin. TECHNIQUE: Axial computed tomography images of the head/brain without intravenous contrast. Automated exposure control was utilized for the study. A dose lowering technique was utilized adhering to the principles of ALARA. COMPARISON: No relevant prior studies available. FINDINGS: No acute intracranial hemorrhage. No midline shift or mass effect. The territorial saini-white matter differentiation is maintained throughout. Age-related cerebral volume loss. Periventricular and subcortical white matter hypoattenuation, consistent with chronic microangiopathy. The visualized orbits appear grossly unremarkable. The calvarium is intact. The visualized paranasal sinuses and mastoid air cells are grossly clear. IMPRESSION: No acute intracranial hemorrhage, midline shift, or mass effect. Electronically signed by: Anselmo Castellano MD 09/22/23 00:06 AM
--- NOTE | 2023-09-22 00:56 | History & Physical Report ---
Date of Service September 22, 2023 Assessment & Plan (1) Chest pain: Plan: 68-year-old male with past med history significant for CKD stage V, diabetes, hypertension, hyperlipidemia, vitamin D deficiency, anemia due to chronic kidney disease, left renal mass, chronic diastolic CHF, history of PE on Coumadin, history of Guillain-Jean Baptiste syndrome presents with chest pain. Patient states in the morning he had labs done which showed his worsening creatinine and he notified his appraiser art. Later in the evening watching TV when he noticed chest pressure and headache and nausea which prompted him to come to the ER. Currently chest pain improved decreased to 3 / 10 in severity. No dizziness. No sweating. No shortness of breath. No cough. No fevers. No abdominal pain, normal bowel and bladder movements. Currently states while resting the pain is improved. But states with any exertion the chest pain seems to come back. Hemodynamics are okay. Chest pain Questionable unstable angina Troponin 24.6 and repeat is 25 Will follow serial cardiac enzymes and echo N.p.o. Telemetry Cardiac consult in a.m. for further recommendations CKD stage V Presented with creatinine 4.6 Seems around baseline Plan for renal transplant Follow-up with nephrology Diabetes Sliding scale Will monitor Chronic diastolic CHF Monitor for volume overload Hyperlipidemia On statin History of PE On Coumadin INR 2.4 Follow PT/INR Hypertension On amlodipine, hydralazine, Coreg Will monitor BPH On Proscar and Flomax DVT prophylaxis On Coumadin Follow PT/INR Disposition Telemetry Full code History of Present Illness Chief Complaint: Chest pain Primary Care Provider: Asaf Younger MD 68-year-old male with past med history significant for CKD stage V, diabetes, hypertension, hyperlipidemia, vitamin D deficiency, anemia due to chronic kidney disease, left renal mass, chronic diastolic CHF, history of PE on Coumadin, history of Guillain-Jean Baptiste syndrome presents with chest pain. Patient states in the morning he had labs done which showed his worsening creatinine and he notified his appraiser art. Later in the evening watching TV when he noticed chest pressure and headache and nausea which prompted him to come to the ER. Currently chest pain improved ,decreased to 3 / 10 in severity. No dizziness. No sweating. No shortness of breath. No cough. No fevers. No abdominal pain, normal bowel and bladder movements. Currently states while resting the pain is improved. But states with any exertion the chest pain seems to come back. Hemodynamics are okay. Past med history. As mentioned above Past surgical history. Tonsillectomy. Bilateral hip replacement. Social history. . No smoking. No alcohol use. No drug use. Family history. No family history on file Allergies Allergy/AdvReac Type Severity Reaction Status Date / Time atorvastatin AdvReac Intermediate Muscle Verified 08/25/23 09:20 aches bupropion [From Wellbutrin] AdvReac Intermediate Vivid Verified 08/25/23 09:20 dreams, hallucinations [id number]-HDF-[id number] Reductase AdvReac Intermediate Body aches Verified 08/25/23 09:20 Inhibitor [Rcpkixm-Alu-Beg Reductase Inhibitor] Home Medications Medication Instructions Recorded Confirmed Type gabapentin 100 mg capsule 100 mg PO TID 03/26/20 09/22/23 History sertraline 100 mg tablet 100 mg PO QAM 05/22/21 09/22/23 History fenofibrate micronized 43 mg 43 mg PO DAILY 08/06/22 09/22/23 History capsule rosuvastatin 20 mg tablet 20 mg PO QAM 11/25/22 09/22/23 History ferrous sulfate, dried 160 mg (50 160 mg PO QAM 12/03/22 09/22/23 History mg iron) tablet,extended release glucosam 750 mg-chondroi 100 1 tab PO QAM 12/03/22 09/22/23 History mg-hyalur 1.65 mg-CF borate 108 mg tablet ([facility] HESIODO) multivitamin 1 tab PO QAM 12/03/22 09/22/23 History vit C 250 mg-E 90 mg-zinc 40 1 tab PO AMPM 12/03/22 09/22/23 History mg-copper 1 px-jbqusp-mwmxov chew tablet (PreserVision AREDS-2) carvedilol 25 mg tablet (Coreg) 25 mg PO BID 12/31/22 09/22/23 History amlodipine 5 mg tablet (Norvasc) 5 mg PO BID #180 tabs 02/03/23 09/22/23 Rx Black Seed Oil 100 mg PO DAILY 06/22/23 09/22/23 History calcitriol 0.5 mcg capsule 0.5 mcg PO DAILY #30 caps 06/22/23 09/22/23 Rx finasteride 5 mg tablet 5 mg PO DAILY #90 tabs 07/08/23 09/22/23 Rx tamsulosin 0.4 mg capsule 0.4 mg PO DAILY #90 caps 07/08/23 09/22/23 Rx tirzepatide 5 mg/0.5 mL 5 mg subcut WK 07/08/23 09/22/23 History subcutaneous pen injector (Paco) ergocalciferol (vitamin D2) 1,250 50,000 unit PO WEEKLY #12 caps 07/11/23 09/22/23 Rx mcg (50,000 unit) capsule hydralazine 50 mg tablet 50 mg PO TID #90 tabs 07/11/23 09/22/23 Rx sertraline 50 mg tablet 50 mg PO QAM 09/22/23 09/22/23 History warfarin 3 mg tablet See Rx Instructions .Route .COMPLEX 09/22/23 09/22/23 History Past Med/Surg History Medical History Stage 5 chronic kidney disease due to type 2 diabetes mellitus Edema RLE (chronic issue x years after nerve procedure) Complex renal cyst Left renal mass Under surveillance Anemia due to chronic kidney disease Baseline hgb 11-12 range per chart review Chronic kidney disease, stage 4 (severe) Depression, unspecified Right foot drop PVD (peripheral vascular disease) Diabetes mellitus with neuropathy Obesity Hyperlipidemia HTN (hypertension) Hx pulmonary embolism 2007 Guillain Jean Baptiste syndrome 2013 Surgical History Hx of cardiac catheterization Remote hx many yrs ago > no stents Follows w/ Dr. Marshall/Rosalind Hx of colonoscopy Hx of bilateral hip replacements History of tonsillectomy History of back surgery Family History Brother Cancer Father Hypertension Diabetes Heart disease Dementia Mother Diabetes Social History Smoking Status: Former smoker Second Hand Exposure: No; Do You Dip or Chew Tobacco: No; Hx Alcohol Use: No Hx Substance Use: No Preferred Language: Sudanese Communication Ability: Effective Visual Impairment: Limited Hearing Ability: Normal Grants Analyst Required: No Beliefs That Will Affect Care: None marital status: / Current Living Situation: Family Current Living Situation Comment: with daughter current occupational status: retired Other Information That Helps Us Care for You: No Feels Safe at Home: Yes Safety Concerns: Feels Safe At This Time Diet: low salt caffeine: Yes (1 coffee daily) Do you think of yourself as: straight/heterosexual Gender Identity: Male Assistive Devices: Cane and Glasses Review of Systems Review of Systems: All systems reviewed & are unremarkable except as noted in HPI & below Physical Exam Physical Exam: General- Not in distress Head- atraumatic Eyes- PERRL. ENT- oropharynx clear Neck- supple, no JVD. Lungs- clear to auscultation no wheezing or crackles. Heart- regular rhythm; no murmur, no gallop. Abdomen- normal bowel sounds, soft, nontender, no distension. Extremities- no pretibial edema, no erythema seen. Neuro- alert, oriented ; PERRL, no facial palsy; no dysarthria; moves extremities. Results & Data Results & Data Vital Signs (Past 12 Hours) Vital Signs Temp Pulse Pulse Resp BP BP Pulse Ox 09/22/23 00:20 68 16 95 09/22/23 00:10 69 17 95 09/22/23 00:00 67 17 94 09/22/23 00:00 67 17 164/77 H 94 09/21/23 23:54 70 16 97 09/21/23 23:54 70 09/21/23 23:53 70 16 177/79 H 97 09/21/23 23:35 69 166/87 H 96 09/21/23 20:48 36.9 C 75 16 190/106 H 95 O2 Del Method 09/22/23 00:20 09/22/23 00:10 09/22/23 00:00 09/22/23 00:00 09/21/23 23:54 09/21/23 23:54 09/21/23 23:53 09/21/23 23:35 Room Air 09/21/23 20:48 Room Air Diagnostic Findings Laboratory Results WBC 5.70 K/ul (4.8-10.8) 09/21/23 21:35 RBC 3.49 M/uL (4.70-6.10) L 09/21/23 21:35 Hgb 10.3 g/dl (14.0-18.0) L 09/21/23 21:35 Hct 31.9 % (42.0-52.0) L 09/21/23 21: MCV 91.4 fL (80.0-100.0) 09/21/23: MCH 29.5 pg (25.0-34.0) 09/21/23 21: MCHC 32.3 g/dL (32.0-36.0) 09/21/23: RDW Std Deviation 45.0 fL (36.4-46.3) 09/21/23: RDW Coeff of Severiano 13.3 % (11.5-14.5) 09/21/23: Plt Count 183 K/uL (130-400) 09/21/23: MPV 10.5 fL (9.4-12.4) 09/21/23: Immature Gran % (Auto) 0.4 % 09/21/23: Neut % (Auto) 69.0 % 09/21/23 21: Lymph % (Auto) 21.1 % 09/21/23 21:35 [place] % (Auto) 6.5 % 09/21/23 21:35 Eos % (Auto) 1.9 % 09/21/23: Baso % (Auto) 1.1 % 09/21/23: Neut # (Auto) 3.94 K/uL (1.40-6.50) 09/21/23 21: Lymph # (Auto) 1.20 K/uL (1.20-3.40) 09/21/23: [place] # (Auto) 0.37 K/uL (0.11-0.59) 09/21/23 21: Eos # (Auto) 0.11 K/uL (0.00-0.50) 09/21/23: Baso # (Auto) 0.06 K/uL (0.00-0.20) 09/21/23: Immature Gran # (Auto) 0.02 K/uL (0.01-0.20) 09/21/23 21: PT 25.0 Seconds (9.0-12.0) H 09/21/23 21: INR 2.4 (0.9-1.1) H 09/21/23 21:35 APTT 42 Seconds (21-31) H 09/21/23 21:35 PTT Ratio 1.5 09/21/23 21:35 Sodium 139 mmol/L (136-145) 09/21/23 21:35 Potassium 4.5 mmol/L (3.5-5.1) 09/21/23 21:35 Chloride 109 mmol/L (98-107) H 09/21/23 21:35 Carbon Dioxide 22 mmol/L (21-32) 09/21/23 21:35 Anion Gap 8 (3-11) 09/21/23 21:35 BUN 70 mg/dl (6-23) H 09/21/23 21:35 Creatinine 4.62 mg/dl (0.6-1.4) H* 09/21/23 21:35 Est Cr Clr Drug Dosing Not Reportable 09/21/23 21:35 Est GFR ( Amer) 13.9 ml/min 09/21/23 21:35 Est GFR (Non-Af Amer) 12.0 ml/min 09/21/23 21:35 BUN/Creatinine Ratio 15.2 (10-20) 09/21/23 21:35 Glucose 216 mg/dl (70-99(Fasting)) H 09/21/23 21:35 Calcium 9.2 mg/dl (8.6-10.3) 09/21/23 21:35 Total Bilirubin 0.3 mg/dl (0.2-1.0) 09/21/23 21:35 AST 23 U/L (13-39) 09/21/23 21:35 ALT 16 U/L (7-52) 09/21/23 21:35 Alkaline Phosphatase 32 U/L (34-104) L 09/21/23 21:35 Troponin I High Sens 25.0 pg/ml (0-20) H 09/21/23 23:00 Total Protein 6.4 gm/dl (6.0-8.3) 09/21/23 21:35 Albumin 4.0 gm/dl (3.4-5.0) 09/21/23 21:35 Globulin 2.4 gm/dl (2.5-4.0) L 09/21/23 21:35 Albumin/Globulin Ratio 1.7 (0.9-2) 09/21/23 21:[address] 09/21/23 22:52 Exam(s): CT HEAD Without Contrast EXAM: CT Head Without Intravenous Contrast CLINICAL HISTORY: Reason for exam: ARAGON on coumadin. TECHNIQUE: Axial computed tomography images of the head/brain without intravenous contrast. Automated exposure control was utilized for the study. A dose lowering technique was utilized adhering to the principles of ALARA. COMPARISON: No relevant prior studies available. FINDINGS: No acute intracranial hemorrhage. No midline shift or mass effect. The territorial saini-white matter differentiation is maintained throughout. Age-related cerebral volume loss. Periventricular and subcortical white matter hypoattenuation, consistent with chronic microangiopathy. The visualized orbits appear grossly unremarkable. The calvarium is intact. The visualized paranasal sinuses and mastoid air cells are grossly clear. IMPRESSION: No acute intracranial hemorrhage, midline shift, or mass effect. Electronically signed by: Anselmo Castellano MD 09/22/23 00:06 AM ECG Additional Comments: ECG. Normal sinus rhythm rate of 74. Left ventricular hypertrophy. Nonspecific changes in ST segments anterior leads. Code Status & VTE Plan VTE Prophylaxis Plan VTE Prophylaxis will be ordered: Yes
--- NOTE | 2023-09-22 01:13 | Emergency Department Note ---
History of Present Illness General Chief complaint: Shortness of Breath/Dyspnea Stated complaint: CHEST PAIN, HIGH BP, SOB Time Seen by Provider: 09/21/23 22:39 History of Present Illness This 68-year-old gentleman presents ER complaining of exertional chest pain for the past day. He follows with Dr. Marshall in [facility]. He is on Coumadin for history of PEs. He also has a headache. Patient denies fever, chills, cough, congestion, flulike illness. No new leg pain or swelling. Home Medications Medication Instructions Recorded Confirmed Type gabapentin 100 mg capsule 100 mg PO TID 03/26/20 09/22/23 History sertraline 100 mg tablet 100 mg PO QAM 05/22/21 09/22/23 History fenofibrate micronized 43 mg 43 mg PO DAILY 08/06/22 09/22/23 History capsule rosuvastatin 20 mg tablet 20 mg PO QAM 11/25/22 09/22/23 History ferrous sulfate, dried 160 mg (50 160 mg PO QAM 12/03/22 09/22/23 History mg iron) tablet,extended release glucosam 750 mg-chondroi 100 1 tab PO QAM 12/03/22 09/22/23 History mg-hyalur 1.65 mg-CF borate 108 mg tablet ([facility] [employer]) multivitamin 1 tab PO QAM 12/03/22 09/22/23 History vit C 250 mg-E 90 mg-zinc 40 1 tab PO AMPM 12/03/22 09/22/23 History mg-copper 1 [id number] chew tablet (PreserVision AREDS-2) carvedilol 25 mg tablet (Coreg) 25 mg PO BID 12/31/22 09/22/23 History amlodipine 5 mg tablet (Norvasc) 5 mg PO BID #180 tabs 02/03/23 09/22/23 Rx Black Seed Oil 100 mg PO DAILY 06/22/23 09/22/23 History calcitriol 0.5 mcg capsule 0.5 mcg PO DAILY #30 caps 06/22/23 09/22/23 Rx finasteride 5 mg tablet 5 mg PO DAILY #90 tabs 07/08/23 09/22/23 Rx tamsulosin 0.4 mg capsule 0.4 mg PO DAILY #90 caps 07/08/23 09/22/23 Rx tirzepatide 5 mg/0.5 mL 5 mg subcut WK 07/08/23 09/22/23 History subcutaneous pen injector (Paco) ergocalciferol (vitamin D2) 1,250 50,000 unit PO WEEKLY #12 caps 07/11/23 09/22/23 Rx mcg (50,000 unit) capsule hydralazine 50 mg tablet 50 mg PO TID #90 tabs 07/11/23 09/22/23 Rx sertraline 50 mg tablet 50 mg PO QAM 09/22/23 09/22/23 History warfarin 3 mg tablet See Rx Instructions .Route .COMPLEX 09/22/23 09/22/23 History Allergies Allergy/AdvReac Type Severity Reaction Status Date / Time atorvastatin AdvReac Intermediate Muscle Verified 08/25/23 09:20 aches bupropion [From Wellbutrin] AdvReac Intermediate Vivid Verified 08/25/23 09:20 dreams, hallucinations Bsoypmo-GEW-MpX Reductase AdvReac Intermediate Body aches Verified 08/25/23 09:20 Inhibitor [Zqlqtvx-Oio-Jtr Reductase Inhibitor] Past Med/Surg History Medical History Stage 5 chronic kidney disease due to type 2 diabetes mellitus Edema RLE (chronic issue x years after nerve procedure) Complex renal cyst Left renal mass Under surveillance Anemia due to chronic kidney disease Baseline hgb 11-12 range per chart review Chronic kidney disease, stage 4 (severe) Depression, unspecified Right foot drop PVD (peripheral vascular disease) Diabetes mellitus with neuropathy Obesity Hyperlipidemia HTN (hypertension) Hx pulmonary embolism 2007 Guillain Jean Baptiste syndrome 2012 Surgical History Hx of cardiac catheterization Remote hx many yrs ago > no stents Follows w/ Dr. Marshall/Rosalind Hx of colonoscopy Hx of bilateral hip replacements History of tonsillectomy History of back surgery Family History Brother Cancer Father Hypertension Diabetes Heart disease Dementia Mother Diabetes Social History Smoking Status: Never smoker Second Hand Exposure: No; Do You Dip or Chew Tobacco: No; Hx Alcohol Use: No Hx Substance Use: No Preferred Language: Italian Communication Ability: Effective Visual Impairment: Limited Hearing Ability: Normal Family Welfare Social Work Professor Required: No Beliefs That Will Affect Care: None marital status: / Current Living Situation: Alone Current Living Situation Comment: Patient lives in duplex and daughter lives next door and is able to help current occupational status: retired Feels Safe at Home: Yes Diet: low salt caffeine: Yes (1 coffee daily) Do you think of yourself as: straight/heterosexual Gender Identity: Male Assistive Devices: Cane and Glasses Review of Systems A total of 10 systems reviewed and were otherwise negative Physical Exam Vital Signs Vital Signs - 24 hr 09/21/23 20:48 09/21/23 23:35 09/21/23 23:53 Temperature 36.9 C Temperature Source Temporal Artery Scan Pulse Rate 75 70 Pulse Rate [Finger] 69 Pulse Rate from SpO2 Sensor Respiratory Rate 16 16 Respiratory Effort / Characteristics Non-Labored Spontaneous Respiratory Depth Normal Blood Pressure 190/106 H 177/79 H Blood Pressure [Right Arm] 166/87 H Blood Pressure Mean 134 113 Blood Pressure Mean [Right Arm] 113 Blood Pressure Position [Right Arm] Sitting Pulse Oximetry 95 96 97 Oxygen Delivery Method Room Air Room Air Sepsis Recent Fever Within 48 Hours No Sepsis New/Unexplained Change in Mental Status N/A Sepsis Action Taken by Nursing No Action Required 09/21/23 23:54 09/21/23 23:54 09/22/23 00:00 Temperature Temperature Source Pulse Rate 70 70 67 Pulse Rate [Finger] Pulse Rate from SpO2 Sensor 70 Respiratory Rate 16 17 Respiratory Effort / Characteristics Respiratory Depth Blood Pressure 164/77 H Blood Pressure [Right Arm] Blood Pressure Mean 130 Blood Pressure Mean [Right Arm] Blood Pressure Position [Right Arm] Pulse Oximetry 97 94 Oxygen Delivery Method Sepsis Recent Fever Within 48 Hours Sepsis New/Unexplained Change in Mental Status Sepsis Action Taken by Nursing 09/22/23 00:00 09/22/23 00:10 09/22/23 00:20 Temperature Temperature Source Pulse Rate 67 69 68 Pulse Rate [Finger] Pulse Rate from SpO2 Sensor 67 69 68 Respiratory Rate 17 17 16 Respiratory Effort / Characteristics Respiratory Depth Blood Pressure Blood Pressure [Right Arm] Blood Pressure Mean Blood Pressure Mean [Right Arm] Blood Pressure Position [Right Arm] Pulse Oximetry 94 95 95 Oxygen Delivery Method Sepsis Recent Fever Within 48 Hours Sepsis New/Unexplained Change in Mental Status Sepsis Action Taken by Nursing 09/22/23 00:30 09/22/23 00:30 Temperature Temperature Source Pulse Rate 67 67 Pulse Rate [Finger] Pulse Rate from SpO2 Sensor 67 Respiratory Rate 17 17 Respiratory Effort / Characteristics Respiratory Depth Blood Pressure 157/84 H Blood Pressure [Right Arm] Blood Pressure Mean 134 Blood Pressure Mean [Right Arm] Blood Pressure Position [Right Arm] Pulse Oximetry 93 93 Oxygen Delivery Method Room Air Sepsis Recent Fever Within 48 Hours Sepsis New/Unexplained Change in Mental Status Sepsis Action Taken by Nursing VITALS: Vitals are noted on the nurse's note and reviewed by myself. Vital signs stable. GENERAL: Pleasant gentleman with present, in no acute distress, nondiaphoretic, well-developed well-nourished. SKIN: Capillary reflex less than 2 seconds. HEENT: Normocephalic. PERRLA. EOMI. Nares patent. Mucous membranes moist. Neck is supple without nuchal rigidity. HEART: Regular rate and rhythm LUNGS: Clear to auscultation bilaterally without wheezes, rales or rhonchi. No retractions or accessory muscle use. ABDOMEN: Positive bowel sounds x 4. Normal tympanic percussion. Soft, nontender, without masses or organomegaly. Avldez sign negative. No guarding or rebound tenderness. no CVA tenderness MUSCULOSKELETAL: No gross musculoskeletal defects. NEURO: Patient was alert and oriented to person place and time. No focal neurological deficits. Medical Decision Making Medical Records Attestation: I reviewed the patient's medical records. Home Medications Current Medication List: was personally reviewed by me Laboratory Data Attestation: I reviewed the patient's lab results. 09/21/23 21:35 09/21/23 21:35 Lab Results 09/21/23 09/21/23 Range/Units 21:35 23:00 WBC 5.70 (4.8-10.8) K/ul RBC 3.49 L (4.70-6.10) M/uL Hgb 10.3 L (14.0-18.0) g/dl Hct 31.9 L (42.0-52.0) % MCV 91.4 (80.0-100.0) fL MCH 29.5 (25.0-34.0) pg MCHC 32.3 (32.0-36.0) g/dL RDW Std Deviation 45.0 (36.4-46.3) fL RDW Coeff of Severiano 13.3 (11.5-14.5) % Plt Count 183 (130-400) K/uL MPV 10.5 (9.4-12.4) fL Immature Gran % (Auto) 0.4 % Neut % (Auto) 69.0 % Lymph % (Auto) 21.1 % [place] % (Auto) 6.5 % Eos % (Auto) 1.9 % Baso % (Auto) 1.1 % Neut # (Auto) 3.94 (1.40-6.50) K/uL Lymph # (Auto) 1.20 (1.20-3.40) K/uL [place] # (Auto) 0.37 (0.11-0.59) K/uL Eos # (Auto) 0.11 (0.00-0.50) K/uL Baso # (Auto) 0.06 (0.00-0.20) K/uL Immature Gran # (Auto) 0.02 (0.01-0.20) K/uL PT 25.0 H (9.0-12.0) Seconds INR 2.4 H (0.9-1.1) APTT 42 H (21-31) Seconds PTT Ratio 1.5 Sodium 139 (136-145) mmol/L Potassium 4.5 (3.5-5.1) mmol/L Chloride 109 H (98-107) mmol/L Carbon Dioxide 22 (21-32) mmol/L Anion Gap 8 (3-11) BUN 70 H (6-23) mg/dl Creatinine 4.62 H* (0.6-1.4) mg/dl Est Cr Clr Drug Dosing Not Reportable Est GFR ( Amer) 13.9 ml/min Est GFR (Non-Af Amer) 12.0 ml/min BUN/Creatinine Ratio 15.2 (10-20) Glucose 216 H (70-99(Fasting)) mg/dl Calcium 9.2 (8.6-10.3) mg/dl Total Bilirubin 0.3 (0.2-1.0) mg/dl AST 23 (13-39) U/L ALT 16 (7-52) U/L Alkaline Phosphatase 32 L (34-104) U/L Troponin I High Sens 24.6 H 25.0 H (0-20) pg/ml Total Protein 6.4 (6.0-8.3) gm/dl Albumin 4.0 (3.4-5.0) gm/dl Globulin 2.4 L (2.5-4.0) gm/dl Albumin/Globulin Ratio 1.7 (0.9-2) Imaging Data Attestation: I personally reviewed and interpreted this imaging study as follows: Radiologist's Impression: Head CT 09/21/23 22:52 Exam(s): CT HEAD Without Contrast EXAM: CT Head Without Intravenous Contrast CLINICAL HISTORY: Reason for exam: ARAGON on coumadin. TECHNIQUE: Axial computed tomography images of the head/brain without intravenous contrast. Automated exposure control was utilized for the study. A dose lowering technique was utilized adhering to the principles of ALARA. COMPARISON: No relevant prior studies available. FINDINGS: No acute intracranial hemorrhage. No midline shift or mass effect. The territorial saini-white matter differentiation is maintained throughout. Age-related cerebral volume loss. Periventricular and subcortical white matter hypoattenuation, consistent with chronic microangiopathy. The visualized orbits appear grossly unremarkable. The calvarium is intact. The visualized paranasal sinuses and mastoid air cells are grossly clear. IMPRESSION: No acute intracranial hemorrhage, midline shift, or mass effect. Electronically signed by: Anselmo Castellano MD 09/22/23 00:06 AM [facility] Narrative Prior records/ancillary studies reviewed. Triage Nursing notes reviewed. Additional history obtained from family. The patient's history was concerning for chest pain. Differential diagnosis: Etiologies such as cardiac ischemia, aortic dissection, pulmonary embolism, pneumonia, pneumothorax, musculoskeletal, infections, pericarditis, myocarditis, esophageal rupture, gastrointestinal, as well as others were entertained. Physical examination: As above. ER treatment provided: An order was placed for continuous cardiac monitoring. The monitor shows a rate of 60-100 with a sinus rhythm per my interpretation. Patient was observed On reassessment the patient felt better. Diagnostic interpretation by me: #1 the electrocardiogram was negative for pathologic change. Ordered for chest pain EKG: Normal sinus, normal intervals, T wave inversions in the 1 and aVL, minimal ST depression in the lateral leads, rate of 74. Impression normal sinus rhythm with ST-T wave changes slightly worse than prior independently interpreted by myself I think arrhythmia is unlikely. EKG shows normal sinus rhythm with no interval abnormalities such as QT prolongation or WPW. There are no findings to suggest Brugada syndrome. Cardiac monitoring in the emergency department reveals no tachycardic or bradycardic dysrhythmia. Hypertrophic cardiomyopathy was considered but there are no clear historical elements pointing toward this. EKG is not suggestive. The QRS voltage is not extremely large and there are no suggestive Q waves. EKG #2 ordered for chest pain EKG: Normal sinus, normal intervals, no new ST-T wave changes, rate of 74. Impression normal sinus rhythm with several EKG findings from earlier independently interpreted by myself The labs Independently Interpreted by myself revealed troponin slightly elevated but stable per chart review. Stable creatinine per chart review Imaging studies: Chest x-ray with no acute consolidation, pneumothorax or free air per my independent or potation Head CT as above HEART SCORE: Hx: high/mod/low suspicion: 1 ECG: ST depression/nonspecific changes/normal: 1 Age: Greater than 65/45-64/less than 45: 2 Risk factors: (Hypertension, hyperlipidemia, diabetes, coronary disease, tobacco use, cocaine use): 2 Troponin: Greater than 2 times normal limits/1-2 times normal limits/normal: 1 Total: 7 Consultation: A consultation was placed with the hospitalist. The case was discussed and diagnostics were reviewed. The patient was evaluated in the ER for further treatment. Exam and history seem consistent chest pain with concerns for cardiac in etiology. Symptoms are exertional. First troponin was similar to prior. Repeat was similar to prior. Creatinine stable per chart review. EKG has new subtle changes. Repeated EKG was unchanged. Medicine was consulted and case was discussed. He will be mated to the medical service for further evaluation and workup. INR was therapeutic. Unlikely to be PE. By the evaluation outlined above emergent etiologies such as aortic dissection, pulmonary embolism, pneumonia, pneumothorax, infections, pericarditis, myocarditis, gastrointestinal, as well as others were deemed relatively unlikely. The pt informed about the findings as listed above. All questions were answered and pleased with the treatment. The chart was completed utilizing [employer] voice recognition software. Grammatical errors, random word insertions, pronoun errors, and incomplete sentences are an occassional consequence of this system due to software limitations, ambient noise, and hardware issues. Any formal questions or concerns about the content, text, or information contained within the body of this dictation should be directly addressed to the physician litigation assistant for clarification. Impression & Plan Chest pain Discharge Plan Visit Data Chief Complaint: Shortness of Breath/Dyspnea Stated Complaint: CHEST PAIN, HIGH BP, SOB ED Provider: Aron Day ED Midlevel Provider: Shirley Fraire Discharge Problem: Chest pain Patient Disposition: Admitted As Inpatient Condition: Fair Discharge Instructions Interventions: ED Discharge Assessment Last Done: 09/22/23 00:58 Forms Stand Alone Forms: My [employer] Prescriptions Prescriptions: No Action hydralazine 50 mg tablet 50 mg PO TID Qty: 90 2RF ergocalciferol (vitamin D2) 1,250 mcg (50,000 unit) capsule 50,000 unit PO WEEKLY Qty: 12 0RF Black Seed Oil 100 mg PO DAILY Rx Instructions: for prostate health calcitriol 0.5 mcg capsule 0.5 mcg PO DAILY Qty: 30 6RF Mounjaro 5 mg/0.5 mL pen injector 5 mg subcut WK tamsulosin 0.4 mg capsule 0.4 mg PO DAILY Qty: 90 3RF finasteride 5 mg tablet 5 mg PO DAILY Qty: 90 3RF gabapentin 100 mg capsule 100 mg PO TID sertraline 100 mg tablet 100 mg PO QAM rosuvastatin 20 mg tablet 20 mg PO QAM amlodipine [Norvasc] 5 mg tablet 5 mg PO BID Qty: 180 3RF multivitamin Tablet 1 tab PO QAM ferrous sulfate, dried 160 mg (50 mg iron) Tablet Extended Release 160 mg PO QAM [employer] 750 mg-100 mg- 1.65 mg-108 mg Tablet 1 tab PO QAM PreserVision AREDS-2 250-90-40-1 mg Tablet,Chewable 1 tab PO AMPM carvedilol [Coreg] 25 mg tablet 25 mg PO BID fenofibrate micronized 43 mg capsule 43 mg PO DAILY sertraline 50 mg tablet 50 mg PO QAM warfarin 3 mg tablet See Rx Instructions .ROUTE .COMPLEX Rx Instructions: take 1 tablet by mouth tuesday and tuesday, take 1/2 tablet all other days Referrals Referrals: Asaf Younger MD [Primary Care Provider] - Discharge Problem: Chest pain Qualifiers: Chest pain type: unspecified Qualified Code(s): R07.9 - Chest pain, unspecified
[2023-09-22] MEDS ORDERED: NITROGLYCERIN SL 0.4 MG/TAB TAB SL PRN (01:31)
[2023-09-22] MEDS ORDERED: POLYETHYLENE (MIRALAX) 17 GM PACK PO PRN (01:31)
[2023-09-22] MEDS ORDERED: ACETAMINOPHEN 325 MG TAB PO PRN (01:31)
[2023-09-22] MEDS: LABETALOL HCL IV 5 MG/ML 20ML IV STA (02:09)
[2023-09-22 06:11] LABS: Basophils # (auto) 0.04 K/uL (0.00-0.20); Basophils % (auto) 0.6 %; Eosinophils # (auto) 0.14 K/uL (0.00-0.50); Eosinophils % (auto) 2.2 %; Hematocrit (blood only) 29.8 % (42.0-52.0); Hemoglobin 9.9 g/dl (14.0-18.0); Immature Granulocytes # (auto) 0.01 K/uL (0.01-0.20); Immature Granulocytes % (auto) 0.2 %; Lymphocytes # (auto) 1.77 K/uL (1.20-3.40); Mean Corpuscular Hgb Conc 33.2 g/dL (32.0-36.0); Mean Corpuscular Volume 90.3 fL (80.0-100.0); Mean Platelet Volume 10.7 fL (9.4-12.4); Monocytes # (auto) 0.51 K/uL (0.11-0.59); Monocytes % (auto) 8.1 %; Neutrophils # (auto) 3.85 K/uL (1.40-6.50); Neutrophils % (auto) 60.9 %; Platelet Count 158 K/uL (130-400); RDW Coefficient of Variation 13.2 % (11.5-14.5); RDW Standard Deviation 43.9 fL (36.4-46.3); White Blood Count 6.32 K/ul (4.8-10.8)
[2023-09-22 06:25] LABS: BUN Creatinine Ratio 15.2 (10-20); Creatinine Clr Calc Pharmacy 17.8 ml/min; Est GFR (African American) 14.7 ml/min; Est GFR (Non-African American) 12.7 ml/min; Magnesium 2.2 mg/dl (1.7-2.4)
[2023-09-22 06:30] LABS: Troponin I High Sensitivity 24.4 pg/ml (0-20)
--- NOTE | 2023-09-22 07:01 | XRay Report ---
XR chest 1V not portable CLINICAL HISTORY: Chest pain, nonspecific TECHNIQUE: Single frontal radiograph of the chest was obtained. Comparison: Comparison is made to chest radiograph 12/16/2022 FINDINGS: No lines and tubes are seen. The cardiomediastinal silhouette is normal. The lungs are clear. No evid ence of pleural effusion or pneumothorax. IMPRESSION: No acute chest disease. ACT 112: Negative or not required by law. Electronically signed by: Prashanth Carver M.D. 09/22/2023 7:00 AM
[2023-09-22] MEDS: CEROVITE ADV FORMULA TAB PO SCH (08:54)
[2023-09-22] MEDS: CALCITRIOL 0.25 MCG CAPSULE PO SCH (08:54)
[2023-09-22] MEDS: FERROUS SULFATE 325 MG TAB PO SCH (08:54)
[2023-09-22] MEDS: FINASTERIDE 5 MG TAB PO SCH (08:55)
[2023-09-22] MEDS: carvediloL 25 MG TAB PO SCH (08:55)
[2023-09-22] MEDS: FENOFIBRATE NANOCRYSTALLIZED 48 MG TABLET PO SCH (08:56)
[2023-09-22] MEDS: GABAPENTIN 100 MG CAP PO SCH (08:57)
[2023-09-22] MEDS: ROSUVASTATIN CALCIUM 20 MG TAB PO SCH (08:57)
[2023-09-22] MEDS: amLODIPine BESYLATE 5 MG TAB PO SCH (08:57)
[2023-09-22] MEDS: MULTIVITAMIN TAB PO SCH (08:58)
[2023-09-22] MEDS: hydrALAZINE TAB 50 MG TAB PO SCH (08:58)
[2023-09-22] MEDS: TAMSULOSIN HCL 0.4 MG CAP PO SCH (08:59)
[2023-09-22] MEDS: SERTRALINE HCL 50 MG TABLET PO SCH (08:59)
[2023-09-22] MEDS ORDERED: NON-FORMULARY MEDICATION (Glucosam-Chond-Hyalu-Cf Borate [Move Free Joint Health] 750 mg-1 PO SCH (09:00)
--- NOTE | 2023-09-22 10:13 | Cardiology Consultation ---
Date of Consultation September 22, 2023 Assessment & Plan (1) Chest pain at rest: (2) Elevated troponin: (3) Hypertensive urgency: (4) Dyslipidemia, goal LDL below 70: (5) Stage 5 chronic kidney disease due to type 2 diabetes mellitus: Plan 68-year-old male admitted with resting chest discomfort. Blood pressure markedly elevated on presentation raising concern for possibility of hypertensive urgency as etiology to presenting symptoms. EKG without acute ischemic change. High-sensitivity troponin minimally elevated, flat, in the setting of stage V chronic kidney disease. Resting echocardiography completed, pending interpretation Recommendations: 1. Increase hydralazine to 75 mg three times per day for additional blood pressure control 2. Add low-dose long-acting nitrates 3. Likely Lexiscan nuclear stress test pending resting echocardiography results 4. Further recommendations pending evaluation by Dr. Heredia I spent a total of 50 minutes on the date of service in preparation, delivery, and documentation of the care provided to this patient excluding any time spent in the performance of separately billed services. This visit was a split-shared visit with the substantive portion of the medical decision making performed by the supervising electrical high tension tester/billing provider. Supervising Physician Co-Signing Physician Notes I have reviewed the advance practitioner's documentation, and I agree with, and take responsibility for the plan of care. 68-year-old male present to the emergency department due to chest discomfort. Elevated blood pressure noted on presentation. Patient describes a chest tightness radiating to his neck with associated headache. Discomfort seem to improve with "lying still". Headache pain more significant than chest discomfort. Discomfort seem to spontaneously resolved after approximately 8 hours, approximately 1 AM this morning. No recurrence throughout the day. Telemetry reveals sinus rhythm. No orthopnea, PND, or lower extremity edema. Denies fever, chills, sick contacts, or flulike symptoms. PE: VSS. Gen: NAD, AAO x3. Heart: Regular rhythm, normal S1-S2. 1/6 systolic ejection murmur. Lungs: Clear bilateral, no rales, rhonchi, wheeze per extremities: No edema. A/P: 68-year-old male admitted with atypical chest discomfort, headache, and elevated blood pressure/possible hypertensive urgency. Agree with titration of hydralazine and addition of low-dose, long-acting nitrates. Outpatient nuclear stress test. Echocardiogram with evidence of aortic valve sclerosis, no stenosis, normal LV wall motion. High-sensitivity troponins are mildly elevated, and flat. No ischemic ECG changes. Questionable mobile echodensity involving the aortic valve and an area of dense sclerosis. Patient's INR is therapeutic and clinical presentation not consistent with infectious process/endocarditis. Will obtain blood cultures x 2 for completeness. History of Present Illness Reason for Consultation: Chest pain Requesting Physician: Dr. Huber Attending Physician: Dr. Henderson History of Present Illness Mr. Herb Desai is a 68-year-old male who presented to [facility] on September 21, 2023 for evaluation of chest discomfort. Patient notes sitting in the living room watching television around 7 PM last night when he began to experience substernal chest discomfort, pressure burning type sensati on, radiated into the neck and into the temporal area bilaterally with resultant significant headache. Patient notes taking 3 Tylenol at home. After discussion with his daughter his son in law drive him to the ER for further evaluation. Blood pressure on presentation was 190/106. EKG without acute change. High- sensitivity troponin minimally elevated 24.6 then 25.0 then 24.4. Chest x-ray without acute disease. CT of the head performed to evaluate headache showed no acute intracranial abnormality. Continuous telemetry monitoring has revealed sinus rhythm throughout. Patient carries a history of stage V chronic kidney disease with left upper extremity AV fistula, renal transplant candidate, hypertension, hyperlipidemia, type 2 diabetes mellitus, history of tobacco use, family history of ischemic heart disease history of PE for which he is prescribed chronic Coumadin anticoagulation, Guillain-Jean Baptiste back in 2012. Diagnostic cardiac catheterization performed in 2002 was without coronary artery disease per documentation. No recent illnesses. The day before yesterday patient did some activities of daily living including vacuuming out underneath the refrigerator, sweeping the floors, and running the vacuum without significant difficulty. He notes lower extremity peripheral neuropathy and ambulates with the use of a cane, holding onto things when moving throughout the house. No activity related chest pain. No unusual shortness of breath reported. No palpitations. Allergies Allergy/AdvReac Type Severity Reaction Status Date / Time atorvastatin AdvReac Intermediate Muscle Verified 08/25/23 09:20 aches bupropion [From Wellbutrin] AdvReac Intermediate Vivid Verified 08/25/23 09:20 dreams, hallucinations Kipnfqt-YMO-FfQ Reductase AdvReac Intermediate Body aches Verified 08/25/23 09:20 Inhibitor [Houcpxc-Lon-Eis Reductase Inhibitor] Home Medications Medication Instructions Recorded Confirmed Type gabapentin 100 mg capsule 100 mg PO TID 03/26/20 09/22/23 History sertraline 100 mg tablet 100 mg PO QAM 05/22/21 09/22/23 History fenofibrate micronized 43 mg 43 mg PO DAILY 08/06/22 09/22/23 History capsule rosuvastatin 20 mg tablet 20 mg PO QAM 11/25/22 09/22/23 History ferrous sulfate, dried 160 mg (50 160 mg PO QAM 12/03/22 09/22/23 History mg iron) tablet,extended release glucosam 750 mg-chondroi 100 1 tab PO QAM 12/03/22 09/22/23 History mg-hyalur 1.65 mg-CF borate 108 mg tablet (Move [facility]) multivitamin 1 tab PO QAM 12/03/22 09/22/23 History vit C 250 mg-E 90 mg-zinc 40 1 tab PO AMPM 12/03/22 09/22/23 History mg-copper 1 [id number] chew tablet (PreserVision AREDS-2) carvedilol 25 mg tablet (Coreg) 25 mg PO BID 12/31/22 09/22/23 History amlodipine 5 mg tablet (Norvasc) 5 mg PO BID #180 tabs 02/03/23 09/22/23 Rx Black Seed Oil 100 mg PO DAILY 06/22/23 09/22/23 History calcitriol 0.5 mcg capsule 0.5 mcg PO DAILY #30 caps 06/22/23 09/22/23 Rx finasteride 5 mg tablet 5 mg PO DAILY #90 tabs 07/08/23 09/22/23 Rx tamsulosin 0.4 mg capsule 0.4 mg PO DAILY #90 caps 07/08/23 09/22/23 Rx tirzepatide 5 mg/0.5 mL 5 mg subcut WK 07/08/23 09/22/23 History subcutaneous pen injector (Paco) ergocalciferol (vitamin D2) 1,250 50,000 unit PO WEEKLY #12 caps 07/11/23 09/22/23 Rx mcg (50,000 unit) capsule hydralazine 50 mg tablet 50 mg PO TID #90 tabs 07/11/23 09/22/23 Rx sertraline 50 mg tablet 50 mg PO QAM 09/22/23 09/22/23 History warfarin 3 mg tablet See Rx Instructions .Route .COMPLEX 09/22/23 09/22/23 History Patient History Medical History Stage 5 chronic kidney disease due to type 2 diabetes mellitus Edema RLE (chronic issue x years after nerve procedure) Complex renal cyst Left renal mass Under surveillance Anemia due to chronic kidney disease Baseline hgb 11-12 range per chart review Chronic kidney disease, stage 4 (severe) Depression, unspecified Right foot drop PVD (peripheral vascular disease) Diabetes mellitus with neuropathy Obesity Hyperlipidemia HTN (hypertension) Hx pulmonary embolism 2007 Guillain Jean Baptiste syndrome 2013 Surgical History Hx of cardiac catheterization Remote hx many yrs ago > no stents Follows w/ Dr. Marshall/Rosalind Hx of colonoscopy Hx of bilateral hip replacements History of tonsillectomy History of back surgery Family History Brother Cancer Father Hypertension Diabetes Heart disease Dementia Mother Diabetes Social History Smoking Status: Former smoker Second Hand Exposure: No; Do You Dip or Chew Tobacco: No; Hx Alcohol Use: No Hx Substance Use: No Preferred Language: Ukrainian Communication Ability: Effective Visual Impairment: Limited Hearing Ability: Normal Brim Curler Required: No Beliefs That Will Affect Care: None marital status: / Current Living Situation: Family Current Living Situation Comment: with daughter current occupational status: retired Other Information That Helps Us Care for You: No Feels Safe at Home: Yes Safety Concerns: Feels Safe At This Time Diet: low salt caffeine: Yes (1 coffee daily) Do you think of yourself as: straight/heterosexual Gender Identity: Male Assistive Devices: Cane and Glasses Review of Systems Review of Systems: Complete review of systems is otherwise as stated above, negative, or noncontributory. Physical Exam Physical Exam: General: A&Ox3. NAD. HENT: Normocephalic. Atraumatic. Eyes: PER. Conjunctiva pink, sclera clear. Neck: Harsh left carotid bruit. No JVD. No HJR. Heart: RRR. Soft systolic ejection murmur, grade I/. No diastolic murmur. No rub. No gallop. PMI is nondisplaced. Chest: No reproducible chest wall pain. Lungs: Clear to auscultation. Abdomen: +BS. Soft. Nontender. No masses or organomegaly. Extremities: Left upper extremity AV fitsula. Left upper extremity ecchymosis. Compression stocking on the right lower extremity. Minimal edema. No clubbing. No cyanosis Limited neurological examination is without focal deficits. Pulses: posterior tibial=0/4. Results & Data Vital Signs (Past 12 Hours) Vital Signs Temp Pulse Pulse Resp BP BP Pulse Ox 09/22/23 07:24 73 09/22/23 07:20 36.8 C 70 17 160/77 H 96 09/22/23 04:10 36.6 C 71 16 154/70 H 96 09/22/23 02:36 177/73 H 09/22/23 01:54 36.5 C 72 18 197/84 H 96 09/22/23 01:46 70 189/79 H 09/22/23 01:00 69 17 150/77 H 93 09/22/23 01:00 69 17 93 09/22/23 00:30 67 17 157/84 H 93 09/22/23 00:30 67 17 93 09/22/23 00:20 68 16 95 09/22/23 00:10 69 17 95 09/22/23 00:00 67 17 94 09/22/23 00:00 67 17 164/77 H 94 09/21/23 23:54 70 16 97 09/21/23 23:54 70 09/21/23 23:53 70 16 177/79 H 97 09/21/23 23:35 69 166/87 H 96 O2 Del Method 09/22/23 07:24 09/22/23 07:20 Room Air 09/22/23 04:10 Room Air 09/22/23 02:36 09/22/23 01:54 Room Air 09/22/23 01:46 09/22/23 01:00 09/22/23 01:00 09/22/23 00:30 Room Air 09/22/23 00:30 09/22/23 00:20 09/22/23 00:10 09/22/23 00:00 09/22/23 00:00 09/21/23 23:54 09/21/23 23:54 09/21/23 23:53 09/21/23 23:35 Room Air Laboratory Results Cardiac Enzymes 09/21/23 09/21/23 09/22/23 Range/Units 21:35 23:00 05:33 AST 23 (13-39) U/L Troponin I High Sens 24.6 H 25.0 H 24.4 H (0-20) pg/ml Coagulation 09/21/23 Range/Units 21:35 PT 25.0 H (9.0-12.0) Seconds APTT 42 H (21-31) Seconds CBC 09/21/23 09/22/23 Range/Units 21:35 05:33 WBC 5.70 6.32 (4.8-10.8) K/ul RBC 3.49 L 3.30 L (4.70-6.10) M/uL Hgb 10.3 L 9.9 L (14.0-18.0) g/dl Hct 31.9 L 29.8 L (42.0-52.0) % Plt Count 183 158 (130-400) K/uL Neut # (Auto) 3.94 3.85 (1.40-6.50) K/uL Lymph # (Auto) 1.20 1.77 (1.20-3.40) K/uL Eddy # (Auto) 0.37 0.51 (0.11-0.59) K/uL Eos # (Auto) 0.11 0.14 (0.00-0.50) K/uL Baso # (Auto) 0.06 0.04 (0.00-0.20) K/uL Comprehensive Metabolic Panel 09/21/23 09/22/23 Range/Units 21:35 05:33 Sodium 139 141 (136-145) mmol/L Potassium 4.5 4.0 (3.5-5.1) mmol/L Chloride 109 H 111 H (98-107) mmol/L Carbon Dioxide 22 23 (21-32) mmol/L BUN 70 H 67 H (6-23) mg/dl Creatinine 4.62 H* 4.42 H (0.6-1.4) mg/dl Glucose 216 H 118 H (70-99(Fasting)) mg/dl Calcium 9.2 9.0 (8.6-10.3) mg/dl AST 23 (13-39) U/L ALT 16 (7-52) U/L Alkaline Phosphatase 32 L (34-104) U/L Total Protein 6.4 (6.0-8.3) gm/dl Albumin 4.0 (3.4-5.0) gm/dl Intake and Output 09/21/23 09/22/23 09/22/23 22:59 06:59 14:59 Output Total 550 / 550 Balance -550 / -550 Output: Urine 550 / 550 Other: Other Intake Source NPO Weight 96.4 kg Weight Measurement Method Standing Scale
--- NOTE | 2023-09-22 15:30 | Hospitalist Progress Note ---
Date of Service September 22, 2023 Assessment & Plan (1) Chest pain: Plan: 68-year-old male with past med history significant for CKD stage V, diabetes, hypertension, hyperlipidemia, vitamin D deficiency, anemia due to chronic kidney disease, left renal mass, chronic diastolic CHF, history of PE on Coumadin, history of Guillain-Jean Baptiste syndrome presents with chest pain. Patient states in the morning he had labs done which showed his worsening creatinine and he notified his [employer]. Later in the evening watching TV when he noticed chest pressure and headache and nausea which prompted him to come to the ER. Currently chest pain improved decreased to 3 / 10 in severity. No dizziness. No sweating. No shortness of breath. No cough. No fevers. No abdominal pain, normal bowel and bladder movements. Currently states while resting the pain is improved. But states with any exertion the chest pain seems to come back. Hemodynamics are okay. Chest pain Questionable unstable angina Initial troponin was 24 and repeat troponins were not suggestive of any ACS EKG did not show any significant change Echo of the heart showed EF of 60 to 65%, moderate concentric LVH, LV wall motion is normal, aortic valve is trileaflet without stenosis, moderate focal calcification of the noncoronary aortic valve cusp, there is a possible small mobile echodensity adherent to the ventricular surface of the noncoronary aortic valve cusp, differential diagnoses include side loaf artifact, vegetations Lambo excrescence, fibroblastoma, thrombus or sclerosis there is moderate mitral annular calcification aortic stenosis is absent. Appreciate cardiology input and recommendation for outpatient stress testing Blood cultures have been taken We will monitor overnight and likely discharge tomorrow CKD stage V Presented with creatinine 4.6 Seems around baseline Plan for renal transplant-on the transplant list Follow-up with nephrology Kidney function remains stable and slightly better compared with that on admission with creatinine at 4.42 Diabetes Sliding scale Blood sugar remains reasonable Chronic diastolic CHF Monitor for volume overload Hyperlipidemia On statin History of PE On Coumadin INR 2.4 Hypertension On amlodipine, hydralazine, Coreg Will monitor BPH On Proscar and Flomax DVT prophylaxis On Coumadin Follow PT/INR Disposition Telemetry Full code Admission and Anticipated Discharge Date Admission Date: September 22, 2023 Subjective 09/22/2023 The patient was seen and examined in telemetry unit He was admitted with chest pain lasted for hours without any other significant symptoms Has been free from pain since admission Troponins and EKGs are not suggestive of ACS Remains free from any pain during my examination and denies any other symptoms Review of Systems Review of Systems: All systems reviewed and are unremarkable except as noted below Physical Exam Physical Exam: Lying in bed without any acute distress Constitutional: well developed and well nourished; not ill appearing Eyes: PERRL, conjunctivae normal, anicteric sclerae ENMT: external ear and nose normal, oropharynx normal Neck: trachea midline, no thyromegaly Respiratory: no respiratory distress Auscultation: lungs clear to auscultation bilaterally Cardiovascular: Rate/Rhythm: regular rate and regular rhythm; not tachycardic Heart Sounds: normal S1 and normal S2; no murmur Extremities: no edema Gastrointestinal (Abdomen): Inspection/Auscultation: normal bowel sounds; abdomen not distended Percussion/Palpation: abdomen soft; abdomen nontender Musculoskeletal: No acute arthritis involving any of the joint Neurologic: normal touch/pain/proprioception and moves all extremities; no focal motor deficits Psychiatric: A+Ox3, euthymic affect Lymphatic: no cervical or axillary lymphadenopathy Results & Data Results & Data Vital Signs (Past 12 Hours) Vital Signs Temp Pulse Pulse Resp BP Pulse Ox O2 Del Method 09/22/23 11:00 36.6 C 69 19 160/78 H 95 Room Air 09/22/23 07:24 73 09/22/23 07:20 36.8 C 70 17 160/77 H 96 Room Air 09/22/23 04:10 36.6 C 71 16 154/70 H 96 Room Air Laboratory Results Short CBC 09/21/23 09/22/23 Range/Units 21:35 05:33 WBC 5.70 6.32 (4.8-10.8) K/ul Hgb 10.3 L 9.9 L (14.0-18.0) g/dl Hct 31.9 L 29.8 L (42.0-52.0) % Plt Count 183 158 (130-400) K/uL BMP 09/21/23 09/22/23 21:35 05:33 Sodium 139 141 Potassium 4.5 4.0 Chloride 109 H 111 H Carbon Dioxide 22 23 BUN 70 H 67 H Creatinine 4.62 H* 4.42 H Glucose 216 H 118 H Calcium 9.2 9.0 Liver Function 09/21/23 Range/Units 21:35 Total Bilirubin 0.3 (0.2-1.0) mg/dl AST 23 (13-39) U/L ALT 16 (7-52) U/L Alkaline Phosphatase 32 L (34-104) U/L Albumin 4.0 (3.4-5.0) gm/dl Medications Administered Current Inpatient Medications Acetaminophen (Acetaminophen 325 Mg Tab) 650 mg PO Q4H PRN PRN Reason: Pain or Fever Stop: 10/22/23 01:30 Amlodipine Besylate (Amlodipine Besylate 5 Mg Tab) 5 mg PO BID JAKOB Stop: 10/22/23 08:59 Last Admin: 09/22/23 08:57 Dose: 5 mg Calcitriol (Calcitriol 0.25 Mcg Capsule) 0.5 mcg PO DAILY JAKOB Stop: 10/22/23 08:59 Last Admin: 09/22/23 08:54 Dose: 0.5 mcg Carvedilol (Carvedilol 25 Mg Tab) 25 mg PO BID JAKOB Stop: 10/22/23 08:59 Last Admin: 09/22/23 08:55 Dose: 25 mg Fenofibrate (Fenofibrate Nanocrystallized 48 Mg Tablet) 48 mg PO DAILY JAKOB Stop: 10/22/23 08:59 Last Admin: 09/22/23 08:56 Dose: 48 mg Ferrous Sulfate (Ferrous Sulfate 325 Mg Tab) 325 mg PO QAM JAKOB Stop: 10/22/23 08:59 Last Admin: 09/22/23 08:54 Dose: 325 mg Finasteride (Finasteride 5 Mg Tab) 5 mg PO DAILY JAKOB Stop: 10/22/23 08:59 Last Admin: 09/22/23 08:55 Dose: 5 mg Gabapentin (Gabapentin 100 Mg Cap) 100 mg PO TID JAKOB Stop: 10/22/23 08:59 Last Admin: 09/22/23 14:11 Dose: 100 mg Hydralazine HCl (Hydralazine Tab 50 Mg Tab) 50 mg PO TID JAKOB Stop: 10/22/23 08:59 Last Admin: 09/22/23 14:10 Dose: 50 mg Multivitamins (Multivitamin Tab) 1 tab PO QAM JAKOB Stop: 10/22/23 08:59 Last Admin: 09/22/23 08:58 Dose: 1 tab Multivitamins/Minerals (Cerovite Adv Formula Tab) 1 tab PO DAILY JAKOB Stop: 10/22/23 08:59 Last Admin: 09/22/23 08:54 Dose: 1 tab Nitroglycerin (Nitroglycerin Sl 0.4 Mg/Tab Tab) 0.4 mg SL Q5M PRN PRN Reason: Chest Pain Stop: 10/22/23 01:30 Polyethylene Glycol (Polyethylene (Miralax) 17 Gm Pack) 17 gm PO DAILY PRN PRN Reason: Constipation Stop: 10/22/23 01:30 Rosuvastatin Calcium (Rosuvastatin Calcium 20 Mg Tab) [facility] Stop: 10/22/23 08:59 Last Admin: 09/22/23 08:57 Dose: 20 mg Sertraline HCl (Sertraline Hcl 50 Mg Tablet) [facility] Stop: 10/22/23 08:59 Last Admin: 09/22/23 08:59 Dose: 50 mg Tamsulosin HCl (Tamsulosin Hcl 0.4 Mg Cap) 0.4 mg PO DAILY [facility] Stop: 10/22/23 08:59 Last Admin: 09/22/23 08:59 Dose: 0.4 mg Warfarin Sodium (Warfarin Sod 3 Mg Tab) 3 mg PO [id number] [facility] Stop: 10/25/23 15:59 Warfarin Sodium (Warfarin Sod 0.5 Mg Tab) 1.5 mg PO [id number] [facility] Stop: 10/22/23 15:59
[2023-09-22] MEDS: WARFARIN SOD 0.5 MG TAB PO SCH (16:05)
[2023-09-22] MEDS: hydrALAZINE HCL 25 MG TAB PO SCH (22:02)
--- NOTE | 2023-09-23 05:59 | Electrocardiogram Report ---
Test Reason : Blood Pressure : / mmHG Vent. Rate : 074 BPM Atrial Rate : 074 BPM P-R Int : 196 ms QRS Dur : 098 ms QT Int : 420 ms P-R-T Axes : 038 -05 103 degrees QTc Int : 466 ms Normal sinus rhythm Left ventricular hypertrophy with repolarization abnormality Cannot rule out Septal infarct , age undetermined Abnormal ECG When compared with ECG of 21-AUG-2022 09:06, Non-specific change in ST segment in Anterior leads T wave inversion less evident in Anterolateral leads Confirmed by Salvador Cavazos ([id number]) on 09/23/2023 5:58:58 AM Referred By: REFERRED SELF Confirmed By:Salvador Cavazos
--- NOTE | 2023-09-23 05:59 | Electrocardiogram Report ---
Test Reason : Blood Pressure : / mmHG Vent. Rate : 069 BPM Atrial Rate : 069 BPM P-R Int : 182 ms QRS Dur : 096 ms QT Int : 424 ms P-R-T Axes : 019 -04 091 degrees QTc Int : 454 ms Normal sinus rhythm Cannot rule out Septal infarct (cited on or before 21-SEP-2023) Abnormal ECG When compared with ECG of 21-SEP-2023 21:34, No significant change was found Confirmed by Salvador Cavazos ([id number]) on 09/23/2023 5:59:25 AM Referred By: REFERRED SELF Confirmed By:Salvador Cavazos
--- NOTE | 2023-09-23 06:00 | Electrocardiogram Report ---
Test Reason : Blood Pressure : / mmHG Vent. Rate : 073 BPM Atrial Rate : 073 BPM P-R Int : 206 ms QRS Dur : 104 ms QT Int : 426 ms P-R-T Axes : 058 030 095 degrees QTc Int : 469 ms Normal sinus rhythm Minimal voltage criteria for LVH, may be normal variant Nonspecific T wave abnormality Abnormal ECG When compared with ECG of 21-SEP-2023 22:56, No significant change was found Confirmed by Salvador Cavazos ([id number]) on 09/23/2023 5:59:56 AM Referred By: REFERRED SELF Confirmed By:Salvador Cavazos
[2023-09-23 07:06] LABS: Basophils # (auto) 0.06 K/uL (0.00-0.20); Eosinophils # (auto) 0.12 K/uL (0.00-0.50); Hematocrit (blood only) 31.6 % (42.0-52.0); Hemoglobin 10.2 g/dl (14.0-18.0); Immature Granulocytes # (auto) 0.01 K/uL (0.01-0.20); Immature Granulocytes % (auto) 0.2 %; Lymphocytes # (auto) 1.45 K/uL (1.20-3.40); Lymphocytes % (auto) 24.7 %; Mean Corpuscular Hemoglobin 29.5 pg (25.0-34.0); Mean Corpuscular Hgb Conc 32.3 g/dL (32.0-36.0); Mean Corpuscular Volume 91.3 fL (80.0-100.0); Mean Platelet Volume 10.8 fL (9.4-12.4); Monocytes # (auto) 0.39 K/uL (0.11-0.59); Monocytes % (auto) 6.6 %; Neutrophils # (auto) 3.85 K/uL (1.40-6.50); Neutrophils % (auto) 65.5 %; Platelet Count 175 K/uL (130-400); RDW Coefficient of Variation 13.5 % (11.5-14.5); RDW Standard Deviation 45.3 fL (36.4-46.3); Red Blood Count 3.46 M/uL (4.70-6.10); White Blood Count 5.88 K/ul (4.8-10.8)
[2023-09-23 07:29] LABS: BUN Creatinine Ratio 14.9 (10-20); Calcium 9.2 mg/dl (8.6-10.3); Creatinine Clr Calc Pharmacy 17.3 ml/min; Est GFR (African American) 14.4 ml/min; Est GFR (Non-African American) 12.4 ml/min; Magnesium 2.2 mg/dl (1.7-2.4); Phosphorus 3.3 mg/dl (2.5-4.9); Potassium 4.1 mmol/L (3.5-5.1)
[2023-09-23 07:34] LABS: INR 2.1 (0.9-1.1); Prothrombin Time 22.4 Seconds (9.0-12.0)
[2023-09-23] MEDS: ISOSORBIDE MONO EXTENDED REL 30 MG TABCR PO SCH (10:05)
--- NOTE | 2023-09-23 11:18 | Cardiology Progress Note ---
Date of Service September 23, 2023 Assessment & Plan (1) Chest pain at rest: (2) Elevated troponin: (3) Hypertensive urgency: (4) Dyslipidemia, goal LDL below 70: (5) Stage 5 chronic kidney disease due to type 2 diabetes mellitus: Plan 68-year-old male admitted with resting chest discomfort. Blood pressure markedly elevated on presentation. Suspect hypertensive urgency as etiology to presenting symptoms. EKG without acute ischemic change. High-sensitivity troponin minimally elevated, flat, in the setting of stage V chronic kidney disease. Echocardiogram with preserved LV systolic function, without wall motion abnormality, ? mobile echodensity involving the aortic valve. Blood cultures pending; clinical presentation not consistent with infectious process/endocarditis. INR therapeutic. Recommendations: 1. Increase hydralazine to 100 three times per day for additional blood pressure control 2. Low dose Isosorbide mononitrate added this admission, continue on discharge. 3. Outpatient Lexiscan nuclear stress test 4. Please contact with any questions or concerns. I spent a total of 25 minutes on the date of service in preparation, delivery, and documentation of the care provided to this patient excluding any time spent in the performance of separately billed services. This visit was a split-shared visit with the substantive portion of the medical decision making performed by the supervising shelver/billing provider. Admission and Anticipated Discharge Date Admission Date: September 22, 2023 Supervising Physician Co-Signing Physician Notes I have reviewed the advance practitioner's documentation, and I agree with, and take responsibility for the plan of care. 68-year-old male present to the emergency department due to chest discomfort. Elevated blood pressure noted on presentation. Asymptomatic today. Requesting discharge. Blood pressure improved with medical management. PE: VSS. Gen: NAD, AAO x3. Heart: Regular rhythm, normal S1-S2. 1/6 systolic ejection murmur. Lungs: Clear bilateral, no rales, rhonchi, wheeze per extremities: No edema. A/P: 68-year-old male admitted with atypical chest discomfort, headache, and elevated blood pressure/possible hypertensive urgency. Continue current medications. Outpatient nuclear stress test. Echocardiogram with evidence of aortic valve sclerosis, no stenosis, normal LV wall motion. High-sensitivity troponins are mildly elevated, and flat. No ischemic ECG changes. Questionable mobile echodensity involving the aortic valve and an area of dense sclerosis. Blood cultures negative x 24 hours. Patient's INR is therapeutic and clinical presentation not consistent with infectious process/endocarditis. No further inpatient cardiac testing or intervention recommended at this time. I spent a total of 20 minutes on the date of service in preparation, delivery, and documentation of the care provided to this patient, excluding any time spent in the performance of separately billed services. Subjective Patient seen and examined. Chart, medications, and telemetry reviewed. Feeling well. No complaints or concerns. No chest pain/discomfort/burning. No headache. No orthopnea or PND. EKG this AM revealed normal sinus rhythm unchanged compared to prior. Telemetry: Sinus, first degree AV block, heart rates in the 70's and 80's. Review of Systems Review of Systems: Complete review of systems is otherwise as stated above, negative, or noncontributory. Physical Exam Physical Exam: General: A&Ox3. NAD. HENT: Normocephalic. Atraumatic. Eyes: PER. Conjunctiva pink, sclera clear. Neck: Harsh left carotid bruit. No JVD. No HJR. Heart: RRR. Soft systolic ejection murmur, grade I/. No diastolic murmur. No rub. No gallop. PMI is nondisplaced. Chest: No reproducible chest wall pain. Lungs: Clear to auscultation. Abdomen: +BS. Soft. Nontender. No masses or organomegaly. Extremities: Left upper extremity AV fistula. Left upper extremity ecchymosis. Compression stocking on the right lower extremity. Minimal edema. No clubbing. No cyanosis Limited neurological examination is without focal deficits. Pulses: posterior tibial=0/4. Results & Data Vital Signs (Past 12 Hours) Vital Signs Temp Pulse Pulse Resp BP Pulse Ox O2 Del Method 09/23/23 07:23 37.0 C 75 19 150/84 H 95 Room Air 09/23/23 07:00 78 09/23/23 03:51 36.9 C 74 16 133/74 96 Room Air 09/22/23 23:31 36.9 C 77 16 160/72 H 95 Room Air Laboratory Results Cardiac Enzymes 09/22/23 09/22/23 Range/Units 12:14 17:09 Troponin I High Sens 25.3 H 24.6 H (0-20) pg/ml Coagulation 09/23/23 Range/Units 05:56 PT 22.4 H (9.0-12.0) Seconds CBC 09/23/23 Range/Units 05:56 WBC 5.88 (4.8-10.8) K/ul RBC 3.46 L (4.70-6.10) M/uL Hgb 10.2 L (14.0-18.0) g/dl Hct 31.6 L (42.0-52.0) % Plt Count 175 (130-400) K/uL Neut # (Auto) 3.85 (1.40-6.50) K/uL Lymph # (Auto) 1.45 (1.20-3.40) K/uL [place] # (Auto) 0.39 (0.11-0.59) K/uL Eos # (Auto) 0.12 (0.00-0.50) K/uL Baso # (Auto) 0.06 (0.00-0.20) K/uL Comprehensive Metabolic Panel 09/23/23 Range/Units 05:56 Sodium 141 (136-145) mmol/L Potassium 4.1 (3.5-5.1) mmol/L Chloride 110 H (98-107) mmol/L Carbon Dioxide 22 (21-32) mmol/L BUN 67 H (6-23) mg/dl Creatinine 4.50 H (0.6-1.4) mg/dl Glucose 111 H (70-99(Fasting)) mg/dl Calcium 9.2 (8.6-10.3) mg/dl Intake and Output 09/22/23 09/23/23 09/23/23 22:59 06:59 14:59 Intake Total 200 / 700 500 / 700 Output Total 501 / 1501 450 / 1501 Balance -301 / -801 50 / -801 Intake: Oral 200 / 700 500 / 700 Output: Urine 500 / 1500 450 / 1500 # Bowel Movements Other: # Unmeasured Voids 2 Weight 94.892 kg Weight Measurement Method Built in [facility]
--- NOTE | 2023-09-23 13:05 | Hospitalist Progress Note ---
Date of Service September 23, 2023 Assessment & Plan (1) Chest pain: Plan: 68-year-old male with past med history significant for CKD stage V, diabetes, hypertension, hyperlipidemia, vitamin D deficiency, anemia due to chronic kidney disease, left renal mass, chronic diastolic CHF, history of PE on Coumadin, history of Guillain-Jean Baptiste syndrome presents with chest pain. Patient states in the morning he had labs done which showed his worsening creatinine and he notified his informatics nurse specialist. Later in the evening watching TV when he noticed chest pressure and headache and nausea which prompted him to come to the ER. Currently chest pain improved decreased to 3 / 10 in severity. No dizziness. No sweating. No shortness of breath. No cough. No fevers. No abdominal pain, normal bowel and bladder movements. Currently states while resting the pain is improved. But states with any exertion the chest pain seems to come back. Hemodynamics are okay. Chest pain Questionable unstable angina Initial troponin was 24 and repeat troponins were not suggestive of any ACS EKG did not show any significant change Echo of the heart showed EF of 60 to 65%, moderate concentric LVH, LV wall motion is normal, aortic valve is trileaflet without stenosis, moderate focal calcification of the noncoronary aortic valve cusp, there is a possible small mobile echodensity adherent to the ventricular surface of the noncoronary aortic valve cusp, differential diagnoses include side loaf artifact, vegetations Lambo excrescence, fibroblastoma, thrombus or sclerosis there is moderate mitral annular calcification aortic stenosis is absent. Appreciate cardiology input and recommendation for outpatient stress testing Blood cultures have been taken We will monitor overnight and likely discharge tomorrow Remains stable without any cardiac symptoms, no chest pain or palpitation and no shortness of breath He will be discharged home this afternoon Will have outpatient Lexiscan nuclear stress test through cardiology CKD stage V Presented with creatinine 4.6 Seems around baseline Plan for renal transplant-on the transplant list Follow-up with nephrology Kidney function remains stable and slightly better compared with that on admission with creatinine at 4.42 Diabetes Sliding scale Blood sugar remains reasonable Chronic diastolic CHF Monitor for volume overload Hyperlipidemia On statin History of PE On Coumadin INR 2.4 Hypertension On amlodipine, hydralazine, Coreg Will monitor BPH On Proscar and Flomax DVT prophylaxis On Coumadin Follow PT/INR Disposition Telemetry Full code Admission and Anticipated Discharge Date Admission Date: September 22, 2023 Subjective 09/22/2023 The patient was seen and examined in telemetry unit He was admitted with chest pain lasted for hours without any other significant symptoms Has been free from pain since admission Troponins and EKGs are not suggestive of ACS Remains free from any pain during my examination and denies any other symptoms 09/23/2023 The patient was seen and examined in telemetry unit He has been stable without any cardiac symptoms No arrhythmias No chest pain and remains hemodynamically stable Will be discharged home this afternoon Review of Systems Review of Systems: All systems reviewed and are unremarkable except as noted below Physical Exam Physical Exam: Lying in bed without any acute distress Constitutional: well developed and well nourished; not ill appearing Eyes: PERRL, conjunctivae normal, anicteric sclerae ENMT: external ear and nose normal, oropharynx normal Neck: trachea midline, no thyromegaly Respiratory: no respiratory distress Auscultation: lungs clear to auscultation bilaterally Cardiovascular: Rate/Rhythm: regular rate and regular rhythm; not tachycardic Heart Sounds: normal S1 and normal S2; no murmur Extremities: no edema Gastrointestinal (Abdomen): Inspection/Auscultation: normal bowel sounds; abdomen not distended Percussion/Palpation: abdomen soft; abdomen nontender Neurologic: normal touch/pain/proprioception and moves all extremities; no focal motor deficits Psychiatric: A+Ox3, euthymic affect Lymphatic: no cervical or axillary lymphadenopathy Results & Data Results & Data Vital Signs (Past 12 Hours) Vital Signs Temp Pulse Pulse Resp BP Pulse Ox O2 Del Method 09/23/23 11:02 36.6 C 72 20 159/72 H 94 Room Air 09/23/23 07:45 Room Air 09/23/23 07:23 37.0 C 75 19 150/84 H 95 Room Air 09/23/23 07:00 78 09/23/23 03:51 36.9 C 74 16 133/74 96 Room Air Laboratory Results Short CBC 09/23/23 Range/Units 05:56 WBC 5.88 (4.8-10.8) K/ul Hgb 10.2 L (14.0-18.0) g/dl Hct 31.6 L (42.0-52.0) % Plt Count 175 (130-400) K/uL BMP 09/23/23 05:56 Sodium 141 Potassium 4.1 Chloride 110 H Carbon Dioxide 22 BUN 67 H Creatinine 4.50 H Glucose 111 H Calcium 9.2 Medications Administered Current Inpatient Medications Acetaminophen (Acetaminophen 325 Mg Tab) 650 mg PO Q4H PRN PRN Reason: Pain or Fever Stop: 10/22/23 01:30 Amlodipine Besylate (Amlodipine Besylate 5 Mg Tab) 5 mg PO BID [facility] Stop: 10/22/23 08:59 Last Admin: 09/23/23 08:40 Dose: 5 mg Calcitriol (Calcitriol 0.25 Mcg Capsule) 0.5 mcg PO DAILY [facility] Stop: 10/22/23 08:59 Last Admin: 09/23/23 08:38 Dose: 0.5 mcg Carvedilol (Carvedilol 25 Mg Tab) 25 mg PO BID [facility] Stop: 10/22/23 08:59 Last Admin: 09/23/23 08:40 Dose: 25 mg Fenofibrate (Fenofibrate Nanocrystallized 48 Mg Tablet) 48 mg PO DAILY [facility] Stop: 10/22/23 08:59 Last Admin: 09/23/23 08:38 Dose: 48 mg Ferrous Sulfate ([facility] Sulfate 325 Mg Tab) [facility] [place] Stop: 10/22/23 08:59 Last Admin: 09/23/23 08:39 Dose: 325 mg Finasteride (Finasteride 5 Mg Tab) 5 mg PO DAILY [facility] Stop: 10/22/23 08:59 Last Admin: 09/23/23 08:39 Dose: 5 mg Gabapentin (Gabapentin 100 Mg Cap) 100 mg PO TID [facility] Stop: 10/22/23 08:59 Last Admin: 09/23/23 08:39 Dose: 100 mg Hydralazine HCl (Hydralazine Hcl 25 Mg Tab) 75 mg PO TID [facility] Stop: 10/22/23 20:59 Last Admin: 09/23/23 08:38 Dose: 75 mg Isosorbide Mononitrate (Isosorbide Latimer Extended Rel 30 Mg Tabcr) 30 mg PO QAM [facility] Stop: 10/23/23 08:59 Last Admin: 09/23/23 10:05 Dose: 30 mg Multivitamins (Multivitamin Tab) 1 tab PO QAM [facility] Stop: 10/22/23 08:59 Last Admin: 09/23/23 08:39 Dose: 1 tab Multivitamins/Minerals (Cerovite Adv Formula Tab) 1 tab PO DAILY [facility] Stop: 10/22/23 08:59 Last Admin: 09/23/23 08:39 Dose: 1 tab Nitroglycerin (Nitroglycerin Sl 0.4 Mg/Tab Tab) 0.4 mg SL Q5M PRN PRN Reason: Chest Pain Stop: 10/22/23 01:30 Polyethylene Glycol (Polyethylene (Miralax) 17 Gm Pack) 17 gm PO DAILY PRN PRN Reason: Constipation Stop: 10/22/23 01:30 Rosuvastatin Calcium (Rosuvastatin Calcium 20 Mg Tab) [facility] [place] Stop: 10/22/23 08:59 Last Admin: 09/23/23 08:39 Dose: 20 mg Sertraline HCl (Sertraline Hcl 50 Mg Tablet) [facility] [place] Stop: 10/22/23 08:59 Last Admin: 09/23/23 08:39 Dose: 50 mg Tamsulosin HCl (Tamsulosin Hcl 0.4 Mg Cap) 0.4 mg PO DAILY [facility] Stop: 10/22/23 08:59 Last Admin: 09/23/23 08:39 Dose: 0.4 mg Warfarin Sodium (Warfarin Sod 3 Mg Tab) 3 mg PO [email or web address] [facility] Stop: 10/25/23 15:59 Warfarin Sodium (Warfarin Sod 0.5 Mg Tab) 1.5 mg PO [email or web address] [facility] Stop: 10/22/23 15:59 Last Admin: 09/22/23 16:05 Dose: 1.5 mg
--- NOTE | 2023-09-24 00:22 | Electrocardiogram Report ---
Test Reason : Blood Pressure : / mmHG Vent. Rate : 074 BPM Atrial Rate : 074 BPM P-R Int : 192 ms QRS Dur : 100 ms QT Int : 428 ms P-R-T Axes : 058 005 094 degrees QTc Int : 475 ms Normal sinus rhythm Nonspecific T wave abnormality Abnormal ECG When compared with ECG of 22-SEP-2023 05:51, No significant change was found Confirmed by Salvador Cavazos ([id number]) on 09/24/2023 12:22:31 AM Referred By: REFERRED SELF Confirmed By:Salvador Cavazos
--- NOTE | 2023-09-24 07:22 | Discharge Summary ---
Date of Service September 23, 2023 Admission HPI Per Admitting Provider 68-year-old male with past med history significant for CKD stage V, diabetes, hypertension, hyperlipidemia, vitamin D deficiency, anemia due to chronic kidney disease, left renal mass, chronic diastolic CHF, history of PE on Coumadin, history of Guillain-Jean Baptiste syndrome presents with chest pain. Patient states in the morning he had labs done which showed his worsening creatinine and he notified his supervisor of research. Later in the evening watching TV when he noticed chest pressure and headache and nausea which prompted him to come to the ER. Currently chest pain improved ,decreased to 3 / 10 in severity. No dizziness. No sweating. No shortness of breath. No cough. No fevers. No abdominal pain, normal bowel and bladder movements. Currently states while resting the pain is improved. But states with any exertion the chest pain seems to come back. Hemodynamics are okay. Past med history. As mentioned above Past surgical history. Tonsillectomy. Bilateral hip replacement. Social history. . No smoking. No alcohol use. No drug use. Family history. No family history on file Admission Exam Per Admitting Provider Physical Exam: General- Not in distress Head- atraumatic Eyes- PERRL. ENT- oropharynx clear Neck- supple, no JVD. Lungs- clear to auscultation no wheezing or crackles. Heart- regular rhythm; no murmur, no gallop. Abdomen- normal bowel sounds, soft, nontender, no distension. Extremities- no pretibial edema, no erythema seen. Neuro- alert, oriented ; PERRL, no facial palsy; no dysarthria; moves extremities. Principal Diagnosis Chest pain-no ACS, chronic diastolic CHF, CKD stage IV, hypertension Discharge Exam Lying in bed without any acute distress Constitutional well developed and well nourished; not ill appearing Eyes PERRL, conjunctivae normal, anicteric sclerae ENMT external ear and nose normal, oropharynx normal Neck trachea midline, no thyromegaly Respiratory no respiratory distress Auscultation: lungs clear to auscultation bilaterally Cardiovascular Rate/Rhythm: regular rate and regular rhythm; not tachycardic Heart Sounds: normal S1 and normal S2; no murmur Extremities: no edema Gastrointestinal (Abdomen) Inspection/Auscultation: normal bowel sounds; abdomen not distended Percussion/Palpation: abdomen soft; abdomen nontender Neurologic normal touch/pain/proprioception and moves all extremities; no focal motor deficits Psychiatric A+Ox3, euthymic affect Lymphatic no cervical or axillary lymphadenopathy Discharge Data Allergies Allergy/AdvReac Type Severity Reaction Status Date / Time atorvastatin AdvReac Intermediate Muscle Verified 08/25/23 09:20 aches bupropion [From Wellbutrin] AdvReac Intermediate Vivid Verified 08/25/23 09:20 dreams, hallucinations Ihuaafg-YRB-CnS Reductase AdvReac Intermediate Body aches Verified 08/25/23 09:20 Inhibitor [Ycixluk-Pmp-Wdt Reductase Inhibitor] Consultations 09/21/23 22:53 ED Decision to Admit Stat 09/22/23 08:00 Consult Cardiology Routine Ordered Studies 09/21/23 22:52 CT head/brain wo con Stat Hospital Course (1) Chest pain: 68-year-old male with past med history significant for CKD stage V, diabetes, hypertension, hyperlipidemia, vitamin D deficiency, anemia due to chronic kidney disease, left renal mass, chronic diastolic CHF, history of PE on Coumadin, history of Guillain-Jean Baptiste syndrome presents with chest pain. Patient states in the morning he had labs done which showed his worsening creatinine and he notified his supervisor of research. Later in the evening watching TV when he noticed chest pressure and headache and nausea which prompted him to come to the ER. Currently chest pain improved decreased to 3 / 10 in severity. No dizziness. No sweating. No shortness of breath. No cough. No fevers. No abdominal pain, normal bowel and bladder movements. Currently states while resting the pain is improved. But states with any exertion the chest pain seems to come back. Hemodynamics are okay. Chest pain Questionable unstable angina Initial troponin was 24 and repeat troponins were not suggestive of any ACS EKG did not show any significant change Echo of the heart showed EF of 60 to 65%, moderate concentric LVH, LV wall motion is normal, aortic valve is trileaflet without stenosis, moderate focal calcification of the noncoronary aortic valve cusp, there is a possible small mobile echodensity adherent to the ventricular surface of the noncoronary aortic valve cusp, differential diagnoses include side loaf artifact, vegetations Lambo excrescence, fibroblastoma, thrombus or sclerosis there is moderate mitral annular calcification aortic stenosis is absent. Appreciate cardiology input and recommendation for outpatient stress testing Blood cultures have been taken We will monitor overnight and likely discharge tomorrow Remains stable without any cardiac symptoms, no chest pain or palpitation and no shortness of breath He will be discharged home this afternoon Will have outpatient Lexiscan nuclear stress test through cardiology CKD stage V Presented with creatinine 4.6 Seems around baseline Plan for renal transplant-on the transplant list Follow-up with nephrology Kidney function remains stable and slightly better compared with that on admission with creatinine at 4.42 Diabetes Sliding scale Blood sugar remains reasonable Chronic diastolic CHF Monitor for volume overload Hyperlipidemia On statin History of PE On Coumadin INR 2.4 Hypertension On amlodipine, hydralazine, Coreg Will monitor BPH On Proscar and Flomax DVT prophylaxis On Coumadin Follow PT/INR Disposition Telemetry Full code Total Time Total Time Spent Total Time Spent (In Minutes): 35 minutes Discharge Plan Discharge Items Patient Disposition: Home - Self-Care Reason For Visit: CHEST PAIN Discharge Diagnosis: Chest pain-no ACS, chronic diastolic CHF, CKD stage IV, hypertension Condition on Discharge: Good Activity: Resume your previous activity Non-emergency contact: Primary Care Provider Call non-emergency contact if: you have any medication questions and your symptoms worsen Follow-up/Referrals: Asaf Younger MD [Primary Care Provider] - 10/03/23 1:45 pm (With Deborah Park) Diet: Heart Healthy and Low Sodium (2gm) Addtl Attending Provider Instructions: Please take precautions to avoid falls Take your medications as advised Your hydralazine has been increased to 100 mg 3 times a day You are given low-dose isosorbide mononitrate for chest pain You will have an outpatient Lexiscan nuclear test through your production line worker Please keep appointments with your healthcare providers Pending Studies at Discharge: No Stand-Alone Forms: My [employer], Smoking Cessation Medications and DC Order Prescriptions: New isosorbide mononitrate 30 mg Tablet Extended Release 24 Hr 30 mg PO QAM Qty: 30 0RF hydralazine 100 mg tablet 100 mg PO TID Qty: 90 0RF Continued ergocalciferol (vitamin D2) 1,250 mcg (50,000 unit) capsule 50,000 unit PO WEEKLY Qty: 12 0RF Black Seed Oil 100 mg PO DAILY Rx Instructions: for prostate health calcitriol 0.5 mcg capsule 0.5 mcg PO DAILY Qty: 30 6RF Mounjaro 5 mg/0.5 mL pen injector 5 mg subcut WK tamsulosin 0.4 mg capsule 0.4 mg PO DAILY Qty: 90 3RF finasteride 5 mg tablet 5 mg PO DAILY Qty: 90 3RF gabapentin 100 mg capsule 100 mg PO TID sertraline 100 mg tablet 100 mg PO QAM rosuvastatin 20 mg tablet 20 mg PO QAM amlodipine [Norvasc] 5 mg tablet 5 mg PO BID Qty: 180 3RF multivitamin Tablet 1 tab PO QAM ferrous sulfate, dried 160 mg (50 mg iron) Tablet Extended Release 160 mg PO QAM Move Free Joint Health 750 mg-100 mg- 1.65 mg-108 mg Tablet 1 tab PO QAM PreserVision AREDS-2 250-90-40-1 mg Tablet,Chewable 1 tab PO AMPM carvedilol [Coreg] 25 mg tablet 25 mg PO BID fenofibrate micronized 43 mg capsule 43 mg PO DAILY sertraline 50 mg tablet 50 mg PO QAM warfarin 3 mg tablet See Rx Instructions .ROUTE .COMPLEX Rx Instructions: take 1 tablet by mouth tuesday and tuesday, take 1/2 tablet all other days Discontinued hydralazine 50 mg tablet 50 mg PO TID Qty: 90 2RF Discharge Orders: Discharge Order (Routine); Ordered 09/23/23 Ordered By: Gab Henderson Admission Data Admit Date/Time: 09/22/23 00:33 Attending Provider: Gab Henderson Admit Provider: Shailesh Huber Primary Care Provider: Asaf Younger Other Providers: Shailesh Huber; Josue Heredia Other Interventions: Discharge Summary Assessment (RN) Last Done: 09/23/23 14:43
[2023-09-25] MEDS ORDERED: WARFARIN SOD 3 MG TAB PO SCH (16:00)
== END 2023-09-23 15:21 | disposition home or self-care (01) | DRG 313 ==
LOC: ED 20:43 → 2S 09-22 00:33 → INTOOBSV 09-22 00:33 → 2S 09-22 00:58

== ENCOUNTER 2024-09-06 12:20 | Observation (INO) ==
--- NOTE | 2024-09-06 12:55 | Emergency Department Note ---
Impression & Plan Stroke-like symptoms, Central artery occlusion of retina ED Provider Note NAME: SONIA GARCIA AGE: 69 SEX: M : 1955 ARRIVES VIA: Walk-In INFORMANT: Patient, ED PROVIDER(S): Abraham Wills DO CHIEF COMPLAINT: Strokelike symptoms HPI: The patient is a 69-year-old male who presented to the emergency department for an evaluation of strokelike symptoms. The patient had loss of vision in the left eye last Tuesday. He went to see his eye doctor today and was referred to the emergency department for further evaluation as well as possible central retinal artery occlusion. The patient denies having any headache nausea or vomiting. He does take Coumadin. He has a history of renal insufficiency. ROS: See above HPI for pertinent positives & negatives. A total of 10 systems reviewed and were otherwise negative. PAST MEDICAL HISTORY: See Below PAST SURGICAL HISTORY: See Below FAMILY HISTORY: See Below SOCIAL HISTORY: See Below HOME MEDICATIONS: See Below ALLERGIES: See Below VITALS: See Below PHYSICAL EXAMINATION: GENERAL: Patient is awake alert in no acute distress patient is resting comfortably and showing no signs of anxiety EYES: The conjunctivae are clear. The pupils are dilated bilaterally. They are minimally reactive to light. EARS, NOSE, MOUTH AND THROAT: The nose is without any evidence of any deformity. NECK: The neck is nontender and supple. RESPIRATORY: Normal respiratory effort is noted there is no evidence of wheezing rhonchi or rales CARDIOVASCULAR: Regular rate and rhythm noted there no murmurs rubs or gallops normal S1 normal S2. GASTROINTESTINAL: The abdomen is soft. Abdomen is nontender. MUSCULOSKELETAL/EXTREMITIES: There is no evidence of gross deformity full range of motion is noted in the hips and shoulders. SKIN: There is no obvious evidence of any rash. There are no petechiae, pallor or cyanosis noted. NEUROLOGIC: Patient is awake alert and oriented x3. Gait was steady. Federal Agent strength was symmetric. Patient is able to hold each leg off the bed for greater than 5 seconds. MEDICAL DECISION MAKING: The patient is a 69-year-old male who presented to the emergency department for strokelike symptoms. The patient was diagnosed with a central retinal artery occlusion today at his ophthalmology office. The patient did not have any other symptoms. He has a history of renal failure. The patient was sent to the emergency department for further stroke workup. I discussed the patient's laboratory and radiographic studies with him. Given the fact that he is in renal failure he should require further neuroimaging to assess the cause of this retinal artery occlusion. The patient did not appear to have any acute findings on CT of the brain. I discussed the patient's condition with the on-call [facility] hospitalist. They have agreed to evaluate the patient in the emergency department for further management and disposition. Triage Nursing notes reviewed. Prior medical records reviewed Vital Signs: reviewed and remarkable for no significant abnormalities Differential diagnosis: Conjunctivitis, trauma, corneal abrasion, hyphema, glaucoma, iritis, corneal ulcer, dendrite, CRAO, CRVO, vitreous detachment, retinal detachment, as well as other pathologies. ER treatment provided: See below Diagnostics interpreted by me: ECG: EKG was obtained in the emergency department. My interpretation is normal sinus rhythm at 76 bpm. There was no ectopy. Nonspecific ST depressions were noted with T wave abnormalities. This was compared to a tracing from September 23, 2023. No changes were noted. Cardiac Monitoring: An order was placed for continuous cardiac monitoring. The monitor shows a rate of 67 bpm with sinus rhythm. Laboratory studies: As stated above and show below. Imaging studies: See below. Radiographic imaging was reviewed by myself Consultation(s): I discussed this case with [facility]. Past Med/Surg History Problem List (Updated 09/07/24 @ 06:42 by Abraham Wills DO) Central artery occlusion of retina (Acute) Stroke-like symptoms (Acute) Peritoneal dialysis catheter in place Stroke-like symptom Vision loss, left eye Pulmonary edema PD catheter dysfunction End-stage renal disease needing dialysis Dyslipidemia, goal LDL below 70 Stage 5 chronic kidney disease due to type 2 diabetes mellitus Lower urinary tract symptoms (LUTS) Encounter for pre-operative examination Complex renal cyst Chronic diastolic CHF (congestive heart failure) Acute hyperkalemia (Acute) 08/19/22 Left renal mass Under surveillance SOB (shortness of breath) 08/06/22 Anemia due to chronic kidney disease Baseline hgb 11-12 range per chart review Vitamin D deficiency Depression, unspecified Postlaminectomy syndrome Right foot drop PVD (peripheral vascular disease) Diabetes mellitus with neuropathy Obesity (Chronic) Statin intolerance (Chronic) Hyperlipidemia (Chronic) HTN (hypertension) (Chronic) Hx pulmonary embolism 2007 History of back surgery History of hip surgery Acute kidney injury 03/20/17 Guillain Jean Baptiste syndrome 2012 Medical History Carotid artery disease Carotid doppler 11/17/23= 50-69% stenosis ICAs bilaterally. > 50% stenosis external carotid arteries bilaterally Limb alert care status left arm Presence of arteriovenous fistula for hemodialysis Left Wrist Arteriovenous Fistula Creation BPH (benign prostatic hyperplasia) Foot drop, right Hx of cardiac arrhythmia reason pt had heart cath several yrs ago, unsure exactly what it was, controlled now per pt CHF (congestive heart failure) follows with Dr. 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 Marshall/[place] Hx of colonoscopy Hx of bilateral hip replacements History of tonsillectomy Family History Brother Cancer Father Hypertension Diabetes Heart disease Dementia Mother Diabetes Social History Smoking Status: Never smoker Tobacco Type: Cigarettes Second Hand Exposure: No; Do You Dip or Chew Tobacco: No; Tobacco Cessation Education Requested by Patient: No Hx Alcohol Use: No Hx Substance Use: No Preferred Language: Bengali Communication Ability: Effective Visual Impairment: Limited Hearing Ability: Normal Computer Systems Information Director Required: No Beliefs That Will Affect Care: None marital status: / Current Living Situation: Family Current Living Situation Comment: "daughter lives next door" current occupational status: retired Other Information That Helps Us Care for You: No Feels Safe at Home: Yes Safety Concerns: Feels Safe At This Time Diet: low salt caffeine: Yes (1 coffee daily) Physical Activity Frequency: Does not Exercise Do you think of yourself as: straight/heterosexual Gender Identity: Male Assistive Devices: Walker Allergies Allergies Allergy/AdvReac Type Severity Reaction Status Date / Time atorvastatin AdvReac Intermediate Muscle Verified 04/24/24 12:22 aches bupropion [From Wellbutrin] AdvReac Intermediate Vivid Verified 04/24/24 12:22 dreams, hallucinations Iitcoij-GUI-TiE Reductase AdvReac Intermediate Body aches Verified 04/24/24 12:22 Inhibitor [Ussqgyk-Bsj-Rjp Reductase Inhibitor] Home Meds Home Medications Medication Instructions Recorded Confirmed gabapentin 100 mg capsule 100 mg PO TID 03/26/20 09/06/24 sertraline 100 mg tablet 100 mg PO PM 05/22/21 09/06/24 fenofibrate micronized 43 mg 43 mg PO PM 08/06/22 09/06/24 capsule rosuvastatin 20 mg tablet 20 mg PO QAM 11/25/22 09/06/24 carvedilol 25 mg tablet (Coreg) 25 mg PO BID 12/31/22 09/06/24 sertraline 50 mg tablet 50 mg PO PM 09/22/23 09/06/24 warfarin 3 mg tablet 1.5 - 3 mg PO UD 09/22/23 09/06/24 glipizide 5 mg tablet 10 mg PO QAM 01/06/24 09/06/24 aspirin 81 mg tablet,delayed 81 mg PO PM 02/24/24 09/06/24 release isosorbide mononitrate 60 mg 60 mg PO QAM 02/24/24 09/06/24 tablet,extended release 24 hr polyethylene glycol 3350 17 17 g PO DAILY 04/23/24 09/06/24 gram/dose oral powder (Miralax) sevelamer HCl 800 mg tablet 800 mg PO TID 04/23/24 09/06/24 ergocalciferol (vitamin D2) 25,000 50,000 unit PO WK 04/24/24 09/06/24 unit capsule bumetanide 2 mg tablet 4 mg PO BID 09/06/24 09/06/24 epoetin brenda-epbx 40,000 unit/mL 40,000 unit subcut MONTHLY 09/06/24 09/06/24 injection solution (Retacrit) insulin aspart U-100 100 unit/mL 3 unit subcut BID 09/06/24 09/06/24 (3 mL) subcutaneous pen (Novolog FlexPen U-100 Insulin aspart) insulin glargine 100 unit/mL (3 12 unit subcut HS 09/06/24 09/06/24 mL) subcutaneous pen (Lantus Solostar U-100 Insulin) sodium bicarbonate 650 mg tablet 650 mg PO BID 09/06/24 09/06/24 vitamin A-vitamin C-vit E-min 1 tab PO PM 09/06/24 09/06/24 tablet Previous Rx's Medication Instructions Recorded hydralazine 100 mg tablet 100 mg PO TID #270 tabs 11/17/23 amlodipine 5 mg tablet (Norvasc) 5 mg PO BID #180 tabs 03/16/24 finasteride 5 mg tablet 5 mg PO QAM #90 tabs 07/11/24 tamsulosin 0.4 mg capsule 0.4 mg PO DAILY #90 caps 07/25/24 Results & Data (ED) Vital Signs Vital Signs - 24 hr 09/06/24 12:22 09/06/24 14:00 09/06/24 14:03 Temperature 36.1 C L Temperature Source Temporal Artery Scan Pulse Rate 74 68 Pulse Rate from SpO2 Sensor 68 Respiratory Rate 20 23 Respiratory Effort / Characteristics Non-Labored Spontaneous Respiratory Depth Normal Blood Pressure 96/45 L 135/79 Blood Pressure Mean 62 116 Pulse Oximetry 94 95 Oxygen Delivery Method Room Air Sepsis Recent Fever Within 48 Hours No Sepsis New/Unexplained Change in Mental Status N/A Sepsis Action Taken by Nursing No Action Required 09/06/24 14:30 09/06/24 14:30 Temperature Temperature Source Pulse Rate 67 68 Pulse Rate from SpO2 Sensor 68 Respiratory Rate 17 Respiratory Effort / Characteristics Respiratory Depth Blood Pressure Blood Pressure Mean Pulse Oximetry 93 Oxygen Delivery Method Sepsis Recent Fever Within 48 Hours Sepsis New/Unexplained Change in Mental Status Sepsis Action Taken by Alf Medications Current Medication List: was personally reviewed by me Laboratory Data Attestation: I reviewed the patient's lab results. 09/06/24 12:43 09/06/24 12:43 Lab Results 09/06/24 Range/Units 12:43 WBC 8.53 (4.8-10.8) K/ul RBC 3.62 L (4.70-6.10) M/uL Hgb 10.7 L (14.0-18.0) g/dl Hct 32.1 L (42.0-52.0) % MCV 88.7 (80.0-100.0) fL MCH 29.6 (25.0-34.0) pg MCHC 33.3 (32.0-36.0) g/dL RDW Std Deviation 43.8 (36.4-46.3) fL RDW Coeff of Severiano 13.4 (11.5-14.5) % Plt Count 178 (130-400) K/uL MPV 10.3 (9.4-12.4) fL Immature Gran % (Auto) 0.2 % Neut % (Auto) 71.4 % Lymph % (Auto) 19.2 % Kings % (Auto) 7.2 % Eos % (Auto) 1.4 % Baso % (Auto) 0.6 % Neut # (Auto) 6.09 (1.40-6.50) K/uL Lymph # (Auto) 1.64 (1.20-3.40) K/uL Kings # (Auto) 0.61 H (0.11-0.59) K/uL Eos # (Auto) 0.12 (0.00-0.50) K/uL Baso # (Auto) 0.05 (0.00-0.20) K/uL Immature Gran # (Auto) 0.02 (0.01-0.20) K/uL PT 24.5 H (9.0-12.0) Seconds INR 2.4 H (0.9-1.1) APTT 45 H (21-31) Seconds PTT Ratio 1.7 Sodium 136 (136-145) mmol/L Potassium 3.6 (3.5-5.1) mmol/L Chloride 98 (98-107) mmol/L Carbon Dioxide 26 (21-32) mmol/L Anion Gap 12 H (3-11) BUN 83 H (6-23) mg/dl Creatinine 6.96 H* (0.6-1.4) mg/dl Est Cr Clr Drug Dosing Not Reportable eGFR 7.89 BUN/Creatinine Ratio 11.9 (10-20) Glucose 208 H (70-99(Fasting)) mg/dl Calcium 9.0 (8.6-10.3) mg/dl Magnesium 1.9 (1.7-2.4) mg/dl Total Bilirubin 0.4 (0.2-1.0) mg/dl AST 19 (13-39) U/L ALT 10 (7-52) U/L Alkaline Phosphatase 41 (34-104) U/L Troponin I High Sens 197.6 H* (0-20) pg/ml Total Protein 6.6 (6.0-8.3) gm/dl Albumin 3.6 (3.4-5.0) gm/dl Globulin 3.0 (2.5-4.0) gm/dl Albumin/Globulin Ratio 1.2 (0.9-2) Administered Medications Aspirin (Aspirin 81 Mg Ectab) 81 mg PO PM JAKOB Stop: 10/06/24 20:59 Last Admin: 09/06/24 20:45 Dose: 81 mg Documented By: ROOSEVELT Atorvastatin Calcium (Atorvastatin 40 Mg Tab) 40 mg PO QAM JAKOB Stop: 10/06/24 16:59 Last Admin: 09/06/24 18:13 Dose: 40 mg Documented By: SHERITA Bumetanide (Bumetanide 1 Mg Tab) 4 mg PO BID JAKOB Stop: 10/06/24 20:59 Last Admin: 09/06/24 20:43 Dose: 4 mg Documented By: ROOSEVELT Carvedilol (Carvedilol 6.25 Mg Tab) 6.25 mg PO BID JAKOB Stop: 10/06/24 20:59 Last Admin: 09/06/24 20:43 Dose: 6.25 mg Documented By: ROOSEVELT Gabapentin (Gabapentin 100 Mg Cap) 100 mg PO TID JAKOB Stop: 10/06/24 20:59 Last Admin: 09/06/24 20:44 Dose: 100 mg Documented By: ROOSEVELT Insulin Aspart (Insulin Aspart Per Unit Charge) 0 units SC ACHS JAKOB Stop: 10/06/24 16:29 Last Admin: 09/06/24 21:47 Dose: Not Given Documented By: Admin: 09/06/24 18:12 Dose: 7 units Documented By: SHERITA Co-signed By: JAZMÍN Insulin Glargine (Lantus Per Unit Charge) 12 units SQ HS JAKOB Stop: 10/06/24 20:59 Last Admin: 09/06/24 21:54 Dose: 12 units Documented By: ROOSEVELT Co-signed By: ELEANOR Multivitamins (Multivitamin Tab) 1 tab PO PM JAKOB Stop: 10/06/24 20:59 Last Admin: 09/06/24 20:45 Dose: Not Given Documented By: ROOSEVELT Sertraline HCl (Sertraline Hcl 100 Mg Tablet) 100 mg PO PM JAKOB Stop: 10/06/24 20:59 Last Admin: 09/06/24 20:45 Dose: 100 mg Documented By: ROOSEVELT Sertraline HCl (Sertraline Hcl 50 Mg Tablet) 50 mg PO PM JAKOB Stop: 10/06/24 20:59 Last Admin: 09/06/24 20:45 Dose: 50 mg Documented By: ROOSEVELT Sevelamer Carbonate (Sevelamer Carbonate 800 Mg Tab) 800 mg PO TID JAKOB Stop: 10/06/24 20:59 Last Admin: 09/06/24 20:44 Dose: 800 mg Documented By: ROOSEVELT Sodium Bicarbonate (Sodium Bicarbonate 650 Mg Tab) 650 mg PO BID JAKOB Stop: 10/06/24 20:59 Last Admin: 09/06/24 20:42 Dose: 650 mg Documented By: ROOSEVELT Warfarin Sodium (Warfarin Sod 0.5 Mg Tab) 0.5 mg PO [id number]@1600 [facility] Stop: 10/06/24 17:14 Last Admin: 09/06/24 21:53 Dose: 0.5 mg Documented By: ROOSEVELT Warfarin Sodium (Warfarin Sod 1 Mg Tab) 1 mg PO MoTuThSa@1600 [facility] Stop: 10/06/24 17:14 Last Admin: 09/06/24 21:53 Dose: 1 mg Documented By: ROOSEVELT Imaging Data Attestation: I personally reviewed and interpreted this imaging study as follows: My Impression: CT the brain was obtained in the emergency department. My interpretation is no intracranial hemorrhage or mass effect, final report below. 1 view chest x-ray was obtained in the emergency department. My interpretation is no free air or definite filtrate, final report below. Radiologist's Impression: Chest X-Ray 09/06/24 12:31 XR chest 1V portable CLINICAL HISTORY: neuro deficit, acute stroke suspected COMPARISON STUDY: 08/28/2024 FINDINGS: Stable mild cardiomegaly without pulmonary vascular congestion. No effusion, consolidation, or pneumothorax. Stable old healed left rib fractures. IMPRESSION: No acute findings. ACT 112: Negative or not required by law. Electronically signed by: Daryn Urbina M.D. 09/06/2024 1:[address] 09/06/24 12:31 CT head/brain wo con CLINICAL HISTORY: neuro deficit, acute stroke suspected. TECHNIQUE: Multiple axial CT images of the head were obtained without contrast. A dose lowering technique was utilized adhering to the principles of ALARA. CT DOSE: 625.8 mGy.cm COMPARISON: 09/21/2023 FINDINGS: No intracranial hemorrhage seen. No mass effect, midline shift, or hydrocephalus. Stable small area of hypodensity just lateral to the right basal ganglia, likely old infarction. No skull fracture seen. Visualized paranasal sinuses and mastoid air cells are clear. IMPRESSION: No acute findings. ACT 112: Negative or not required by law. The above report was generated using voice recognition software. It may contain grammatical, syntax or spelling errors. Electronically signed by: Daryn Urbina M.D. 09/06/2024 1:12 PM Discharge Plan Visit Data Chief Complaint: Stroke/CVA Symptoms Stated Complaint: LOSS OF VISION IN L EYE, REF BY DOC ED Provider: Abraham Wills Discharge Problem: Stroke-like symptoms, Central artery occlusion of retina Patient Disposition: Admitted As Inpatient Discharge Instructions Interventions: ED Discharge Assessment Last Done: 09/06/24 16:39
--- NOTE | 2024-09-06 13:13 | CT Scan Report ---
CT head/brain wo con CLINICAL HISTORY: neuro deficit, acute stroke suspected. TECHNIQUE: Multiple axial CT images of the head were obtained without contrast. A dose lowering tech nique was utilized adhering to the principles of ALARA. CT DOSE: 625.8 mGy.cm COMPARISON: 09/21/2023 FINDINGS: No intracranial hemorrhage seen. No mass effect, midline shift, or hydrocephalus. Stable sm all area of hypodensity just lateral to the right basal ganglia, likely old infarction. No skull frac ture seen. Visualized paranasal sinuses and mastoid air cells are clear. IMPRESSION: No acute findings. ACT 112: Negative or not required by law. The above report was generated using voice recognition software. It may contain grammatical, syntax o r spelling errors. Electronically signed by: Daryn Urbina M.D. 09/06/2024 1:12 PM
[2024-09-06 13:18] LABS: Basophils # (auto) 0.05 K/uL (0.00-0.20); Basophils % (auto) 0.6 %; Eosinophils # (auto) 0.12 K/uL (0.00-0.50); Eosinophils % (auto) 1.4 %; Hematocrit (blood only) 32.1 % (42.0-52.0); Hemoglobin 10.7 g/dl (14.0-18.0); Immature Granulocytes # (auto) 0.02 K/uL (0.01-0.20); Immature Granulocytes % (auto) 0.2 %; Lymphocytes # (auto) 1.64 K/uL (1.20-3.40); Lymphocytes % (auto) 19.2 %; Mean Corpuscular Hemoglobin 29.6 pg (25.0-34.0); Mean Corpuscular Hgb Conc 33.3 g/dL (32.0-36.0); Mean Corpuscular Volume 88.7 fL (80.0-100.0); Mean Platelet Volume 10.3 fL (9.4-12.4); Monocytes # (auto) 0.61 K/uL (0.11-0.59); Monocytes % (auto) 7.2 %; Neutrophils # (auto) 6.09 K/uL (1.40-6.50); Neutrophils % (auto) 71.4 %; Platelet Count 178 K/uL (130-400); RDW Coefficient of Variation 13.4 % (11.5-14.5); RDW Standard Deviation 43.8 fL (36.4-46.3); Red Blood Count 3.62 M/uL (4.70-6.10); White Blood Count 8.53 K/ul (4.8-10.8)
--- NOTE | 2024-09-06 13:23 | Electrocardiogram Report ---
Test Reason : Blood Pressure : */* mmHG Vent. Rate : 76 BPM Atrial Rate : 76 BPM P-R Int : 186 ms QRS Dur : 100 ms QT Int : 440 ms P-R-T Axes : 41 3 161 degrees QTcB Int : 495 ms Normal sinus rhythm Left ventricular hypertrophy with repolarization abnormality Prolonged QT Abnormal ECG When compared with ECG of 23-Sep-2023 06:11, No significant change was found Confirmed by Abraham Chang ([id number]) on 09/06/2024 1:23:18 PM Referred By: REFERRED SELF Confirmed By: Abraham Chang
--- NOTE | 2024-09-06 13:24 | XRay Report ---
XR chest 1V portable CLINICAL HISTORY: neuro deficit, acute stroke suspected COMPARISON STUDY: 08/28/2024 FINDINGS: Stable mild cardiomegaly without pulmonary vascular congestion. No effusion, consolidation, or pneumothorax. Stable old healed left rib fractures. IMPRESSION: No acute findings. ACT 112: Negative or not required by law. Electronically signed by: Daryn Urbina M.D. 09/06/2024 1:23 PM
[2024-09-06 13:33] LABS: Alanine Aminotransferase 10 U/L (7-52); Albumin Globulin Ratio 1.2 (0.9-2); Albumin Level 3.6 gm/dl (3.4-5.0); Alkaline Phosphatase 41 U/L (34-104); Anion Gap 12 (3-11); Aspartate Aminotransferase 19 U/L (13-39); BUN Creatinine Ratio 11.9 (10-20); Bilirubin,Total 0.4 mg/dl (0.2-1.0); Blood Urea Nitrogen 83 mg/dl (6-23); Carbon Dioxide 26 mmol/L (21-32); Chloride 98 mmol/L (98-107); Glucose 208 mg/dl (70-99(Fasting)); INR 2.4 (0.9-1.1); Magnesium 1.9 mg/dl (1.7-2.4); Partial Thromboplastin Ratio 1.7; Partial Thromboplastin Time 45 Seconds (21-31); Potassium 3.6 mmol/L (3.5-5.1); Prothrombin Time 24.5 Seconds (9.0-12.0); Sodium 136 mmol/L (136-145); Total Protein 6.6 gm/dl (6.0-8.3); Troponin I High Sensitivity 197.6 pg/ml (0-20)
--- NOTE | 2024-09-06 14:41 | History & Physical Report ---
Date of Service September 06, 2024 Assessment & Plan (1) Vision loss, left eye: (2) Stroke-like symptom: Plan: - Admit to PCU for observation - Noted central retinal artery occlusion left eye associated with vision loss. - We will obtain an echo, bilat carotid Doppler, MRI with/wo brain - Pt already on Coumadin and aspirin. Will transition over to Plavix instead of aspirin for antiplatelet. - Neuro consult - Stroke order set completed, no indication for thrombolytic as vision loss of the Left eye occurred on 08/31/24 - CT head reviewed and is negative - MRI brain wo contrast ordered - Will allow permissive hypertension with SBP 140-170, hold antihypertensives today ( hctz, amlodipine, reduce coreg to 6.25 mg BID) - Neurology consulted - PT/OT consults placed (3) Stage 5 chronic kidney disease due to type 2 diabetes mellitus: (4) Peritoneal dialysis catheter in place: Plan: - Consult nephrology for PD - Cr. 6.96, BUN 83, at home pt does overnight cycles - Continue sevelamer hcl 800 mg TID (5) Diabetes mellitus with neuropathy: Plan: -Check A1c with a.m. labs -ISS Accu-Cheks ACHS (6) HTN (hypertension): Plan: -Holding antihypertensives including amlodipine, HCTZ, reducing Coreg today (7) Hyperlipidemia: Plan: -Check lipid panel with a.m. labs (8) Hx pulmonary embolism: Plan: -Occurred in 2007 -Anticoagulated on Coumadin, INR is 2.4 today, trend with a.m. labs -See antiplatelet plus anticoagulation as above DVT ppx: teds, scds Lines: PIV x 2 FEN/GI: Once passes dysphagia screening can allow renal diet CODE: Dispo: From home, likely to remain in the hospital x 1-2 days I spent a total of 76 minutes with greater than 50% of that time face to face with the patient, personally reviewing all current laboratories, imaging studies, past medication reconciliation, outpatient chart review, and discussion with specialists to collaborate care for the patient excluding time spent in the performance of separately billed services or time spent by another provider/QHP. Please see attending documentation for corrections and/or additions. History of Present Illness Chief Complaint: Loss of vision in left eye Primary Care Provider: Asaf Younger MD This is a 69-year-old male with PMHx of end-stage renal disease on peritoneal dialysis, HTN, HLD, history of PE on chronic Coumadin, DM type II, peripheral vascular disease, CHF, who presents to the hospital with concerns for left eye vision loss which occurred last Tuesday on 08/31/2024. He was seated coloring a book and all of a sudden noticed a loss of vision down to only a slit of visible window through the eye. He denies any trauma, falls, head trauma. Denies other sx such as headache. He does admit to episode this morning of lightheadedness or dizziness and states this has been going on even before issues with the eye. No hx of previous strokes. He did see a neurologist with remote hx of [place] ~ 2005 but not since then. Patient was referred to see an community service coordinator who reported that he had central retinal artery occlusion concerning for stroke and was referred to the ER. Pts daughter is present at bedside and supports the history. Pt is compliant with medications and has been very good with coumadin. He has a machine that send dose to office electronically. Pt notes water pill dose was increased a few weeks ago due to blood pressure. He has had incraesed outs with PD routinely. Here patient has CT of the head which is essentially negative. Is been referred to medicine for admission for further workup of strokelike symptoms. Allergies Allergy/AdvReac Type Severity Reaction Status Date / Time atorvastatin AdvReac Intermediate Muscle Verified 04/24/24 12:22 aches bupropion [From Wellbutrin] AdvReac Intermediate Vivid Verified 04/24/24 12:22 dreams, hallucinations Wtiayve-VWY-EcA Reductase AdvReac Intermediate Body aches Verified 04/24/24 12:22 Inhibitor [Dgjltnj-Wby-Tow Reductase Inhibitor] Home Medications Medication Instructions Recorded Confirmed Type gabapentin 100 mg capsule 100 mg PO TID 03/26/20 09/06/24 History sertraline 100 mg tablet 100 mg PO PM 05/22/21 09/06/24 History fenofibrate micronized 43 mg 43 mg PO PM 08/06/22 09/06/24 History capsule rosuvastatin 20 mg tablet 20 mg PO QAM 11/25/22 09/06/24 History carvedilol 25 mg tablet (Coreg) 25 mg PO BID 12/31/22 09/06/24 History sertraline 50 mg tablet 50 mg PO PM 09/22/23 09/06/24 History warfarin 3 mg tablet 1.5 - 3 mg PO UD 09/22/23 09/06/24 History hydralazine 100 mg tablet 100 mg PO TID #270 tabs 11/17/23 09/06/24 Rx glipizide 5 mg tablet 10 mg PO QAM 01/06/24 09/06/24 History aspirin 81 mg tablet,delayed 81 mg PO PM 02/24/24 09/06/24 History release isosorbide mononitrate 60 mg 60 mg PO QAM 02/24/24 09/06/24 History tablet,extended release 24 hr amlodipine 5 mg tablet (Norvasc) 5 mg PO BID #180 tabs 03/16/24 09/06/24 Rx polyethylene glycol 3350 17 17 g PO DAILY 04/23/24 09/06/24 History gram/dose oral powder (Miralax) sevelamer HCl 800 mg tablet 800 mg PO TID 04/23/24 09/06/24 History ergocalciferol (vitamin D2) 25,000 50,000 unit PO WK 04/24/24 09/06/24 History unit capsule finasteride 5 mg tablet 5 mg PO QAM #90 tabs 07/11/24 09/06/24 Rx tamsulosin 0.4 mg capsule 0.4 mg PO DAILY #90 caps 07/25/24 09/06/24 Rx bumetanide 2 mg tablet 4 mg PO BID 09/06/24 09/06/24 History epoetin brenda-epbx 40,000 unit/mL 40,000 unit subcut MONTHLY 09/06/24 09/06/24 History injection solution (Retacrit) insulin aspart U-100 100 unit/mL 3 unit subcut BID 09/06/24 09/06/24 History (3 mL) subcutaneous pen (Novolog FlexPen U-100 Insulin aspart) insulin glargine 100 unit/mL (3 12 unit subcut HS 09/06/24 09/06/24 History mL) subcutaneous pen (Lantus Solostar U-100 Insulin) sodium bicarbonate 650 mg tablet 650 mg PO BID 09/06/24 09/06/24 History vitamin A-vitamin C-vit E-min 1 tab PO PM 09/06/24 09/06/24 History tablet Past Med/Surg History Problem List Peritoneal dialysis catheter in place Stroke-like symptom Vision loss, left eye Pulmonary edema PD catheter dysfunction End-stage renal disease needing dialysis Dyslipidemia, goal LDL below 70 Stage 5 chronic kidney disease due to type 2 diabetes mellitus Lower urinary tract symptoms (LUTS) Encounter for pre-operative examination Complex renal cyst Chronic diastolic CHF (congestive heart failure) Acute hyperkalemia (Acute) 08/19/22 Left renal mass Under surveillance SOB (shortness of breath) 08/06/22 Anemia due to chronic kidney disease Baseline hgb 11-12 range per chart review Vitamin D deficiency Depression, unspecified Postlaminectomy syndrome Right foot drop PVD (peripheral vascular disease) Diabetes mellitus with neuropathy Obesity (Chronic) Statin intolerance (Chronic) Hyperlipidemia (Chronic) HTN (hypertension) (Chronic) Hx pulmonary embolism 2007 History of back surgery History of hip surgery Acute kidney injury 03/20/17 Guillain Jean Baptiste syndrome 2012 Medical History Carotid artery disease Carotid doppler 11/17/23= 50-69% stenosis ICAs bilaterally. > 50% stenosis external carotid arteries bilaterally Limb alert care status left arm Presence of arteriovenous fistula for hemodialysis Left Wrist Arteriovenous Fistula Creation BPH (benign prostatic hyperplasia) Foot drop, right Hx of cardiac arrhythmia reason pt had heart cath several yrs ago, unsure exactly what it was, controlled now per pt CHF (congestive heart failure) follows with Dr. 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 Marshall/Rosalind Hx of colonoscopy Hx of bilateral hip replacements History of tonsillectomy Family History Brother Cancer Father Hypertension Diabetes Heart disease Dementia Mother Diabetes Social History Smoking Status: Never smoker Tobacco Type: Cigarettes Second Hand Exposure: No; Do You Dip or Chew Tobacco: No; Tobacco Cessation Education Requested by Patient: No Hx Alcohol Use: No Hx Substance Use: No Preferred Language: Armenian Communication Ability: Effective Visual Impairment: Limited Hearing Ability: Normal Production Packager Required: No Beliefs That Will Affect Care: None marital status: / Current Living Situation: Family Current Living Situation Comment: "daughter lives next door" current occupational status: retired Other Information That Helps Us Care for You: No Feels Safe at Home: Yes Safety Concerns: Feels Safe At This Time Diet: low salt caffeine: Yes (1 coffee daily) Physical Activity Frequency: Does not Exercise Do you think of yourself as: straight/heterosexual Gender Identity: Male Assistive Devices: Walker Review of Systems Review of Systems: Constitutional: No fever, sweats or chills Eyes: As per HPI with Left eye vision loss, No diplopia, no worsening or blurred vision ENT: normal hearing, no trouble swallowing Respiratory: No cough, sputum, dyspnea at rest , + WILL is at baseline Cardiovascular: No chest pain, tightness or palpitations Abdomen: No pain, nausea, vomiting, diarrhea or constipation, PD catheter in place working well Musculoskeletal: No joint pain, calf pain, swelling Neurologic: No weakness, numbness/tingling, + balance problems Psychiatric: No anxiety or depression Skin: No rash or itch Physical Exam Physical Exam: Please refer to attending addendum for PE. Results & Data Results & Data Vital Signs (Past 12 Hours) Vital Signs Temp Pulse Resp BP Pulse Ox O2 Del Method 09/06/24 14:30 67 09/06/24 12:22 36.1 C L 74 20 96/45 L 94 Room Air Laboratory Results 09/06/24 12:43 WBC 8.53 RBC 3.62 L Hgb 10.7 L Hct 32.1 L MCV 88.7 MCH 29.6 MCHC 33.3 RDW Std Deviation 43.8 RDW Coeff of Severiano 13.4 Plt Count 178 MPV 10.3 Immature Gran % (Auto) 0.2 Neut % (Auto) 71.4 Lymph % (Auto) 19.2 Parmer % (Auto) 7.2 Eos % (Auto) 1.4 Baso % (Auto) 0.6 Neut # (Auto) 6.09 Lymph # (Auto) 1.64 Parmer # (Auto) 0.61 H Eos # (Auto) 0.12 Baso # (Auto) 0.05 Immature Gran # (Auto) 0.02 PT 24.5 H INR 2.4 H APTT 45 H PTT Ratio 1.7 Sodium 136 Potassium 3.6 Chloride 98 Carbon Dioxide 26 Anion Gap 12 H BUN 83 H Creatinine 6.96 H* Est Cr Clr Drug Dosing Not Reportable eGFR 7.89 BUN/Creatinine Ratio 11.9 Glucose 208 H Calcium 9.0 Magnesium 1.9 Total Bilirubin 0.4 AST 19 ALT 10 Alkaline Phosphatase 41 Troponin I High Sens 197.6 H* Total Protein 6.6 Albumin 3.6 Globulin 3.0 Albumin/Globulin Ratio 1.2 Diagnostic Findings Chest X-Ray 09/06/24 12:31 XR chest 1V portable CLINICAL HISTORY: neuro deficit, acute stroke suspected COMPARISON STUDY: 08/28/2024 FINDINGS: Stable mild cardiomegaly without pulmonary vascular congestion. No effusion, consolidation, or pneumothorax. Stable old healed left rib fractures. IMPRESSION: No acute findings. ACT 112: Negative or not required by law. Electronically signed by: Daryn Urbina M.D. 09/06/2024 1:[address] 09/06/24 12:31 CT head/brain wo con CLINICAL HISTORY: neuro deficit, acute stroke suspected. TECHNIQUE: Multiple axial CT images of the head were obtained without contrast. A dose lowering technique was utilized adhering to the principles of ALARA. CT DOSE: 625.8 mGy.cm COMPARISON: 09/21/2023 FINDINGS: No intracranial hemorrhage seen. No mass effect, midline shift, or hydrocephalus. Stable small area of hypodensity just lateral to the right basal ganglia, likely old infarction. No skull fracture seen. Visualized paranasal sinuses and mastoid air cells are clear. IMPRESSION: No acute findings. ACT 112: Negative or not required by law. The above report was generated using voice recognition software. It may contain grammatical, syntax or spelling errors. Electronically signed by: Daryn Urbina M.D. 09/06/2024 1:12 PM ECG Rhythm: sinus rhythm Additional Comments: QTc is prolonged at 495 on admission Code Status & VTE Plan VTE Prophylaxis Plan VTE Prophylaxis will be ordered: Yes Supervising Physician Co-Signing Physician Notes Patient is a 69-year-old male with history of end-stage renal disease on peritoneal dialysis, PE on chronic anticoagulation with Coumadin, diabetes mellitus and other medical problems presents with history of left eye vision loss. Patient initially had visual changes on his left side 6 days ago which initially started as a scotoma and then gradually worsened. Patient was evaluated by his community service coordinator today and was found to have retinal artery occlusion and so was sent to ED for further evaluation. Patient denies any trauma, falls, dizziness, focal weakness or numbness. He admits to have GB syndrome many years ago. He also denies any facial deformity, dysphagia, dysarthria. Please review HPI for complete details of presentation. I personally reviewed blood work and imaging studies. His INR is therapeutic 2.4. Initially blood pressure systolic in 90s which later improved. Troponin noted to be 197.6. Creatinine 6.9, BUN 83. CT head, chest x-ray showed no acute findings. Physical Exam: Vitals signs as noted above General Appearance: Obese, no apparent distress Head: normocephalic, Atraumatic Eyes: normal inspection, EOMI, + complete left eye visual loss Neck: supple, Trachea midline Respiratory/Chest: Normal breath sounds, CTA, No accessory muscle use Cardiovascular: S1, S2, No murmur Abdomen/GI:Soft, Non tender, + abdominal hernia, + PD catheter, bowel sounds present Extremities/Musculoskeletal:normal inspection, no edema Neurologic/Psych:AAOX3, grossly no focal neurological deficits Skin: normal color, warm Left eye visual loss due to retinal artery occlusion Rule out CVA/embolic phenomenon CT head showed no acute findings Will get MRI brain, carotid ultrasound Continue aspirin, warfarin for now INR therapeutic Monitor INR Neurology consulted, neurochecks Check resting echo Allow permissive hypertension for now Monitor blood pressure closely Agree with holding amlodipine, hydralazine and decreasing Coreg dose for now Readjust antihypertensives as able Chronic troponin elevation In setting of end-stage renal disease Echo as above End-stage renal disease on dialysis Nephrology to help with dialysis I personally interviewed and examined the patient at bedside. I have reviewed the advanced practitioner's documentation on the date of service referred in note and agree with plan. Patient's care is coordinated with Idania Dewey PA-C. Please refer to the documentation above for details of patient's presentation and for discussion of other issues. I spent a total of 36minutes coordinating, documenting, and providing care for this patient excluding time spent in the performance of separately billed services or time spent by another provider/QHP. (6) HTN (hypertension) Hypertension type: unspecified Qualified Code(s): I10 - Essential (primary) hypertension
[2024-09-06] MEDS ORDERED: DEXTROSE 50% 50 ML SYRINGE IV PRN (16:17)
[2024-09-06] MEDS ORDERED: ACETAMINOPHEN 325 MG TAB PO PRN (16:17)
[2024-09-06] MEDS ORDERED: PHARMACIST DISCHARGE MED REC CONSULT PRN (16:17)
[2024-09-06] MEDS ORDERED: CARBOHYDRATES FOR HYPOGLYCEMIA PO PRN (16:17)
[2024-09-06] MEDS ORDERED: GLUCOSE 10 TAB/TUBE PO PRN (16:17)
[2024-09-06] MEDS ORDERED: ONDANSETRON INJ 2 MG/ML 2 ML VIAL IV PRN (16:17)
[2024-09-06] MEDS ORDERED: GLUCOSE 40% GEL 15 GM TUBE PO PRN (16:17)
[2024-09-06] MEDS ORDERED: WARFARIN SOD 3 MG TAB PO SCH (16:17)
[2024-09-06] MEDS ORDERED: GLUCAGON FOR INJ 1 MG VIAL SQ PRN (16:17)
--- NOTE | 2024-09-06 17:40 | Nephrology Consultation ---
Date of Consultation September 06, 2024 Assessment & Plan (1) End-stage renal disease needing dialysis: * Patient appears clinically euvolemic. Electrolyte balance is acceptable. * Will provide peritoneal dialysis this evening according to chronic outpatient orders * NCCPD orders were placed in the EMR and on-call HD RN notified * BMP in am * Continue bumetanide. Monitor UO (2) Vision loss, left eye: * Ophthalmology evaluation today concerning for central retinal artery occlusion * Head CT negative for CVA * Await carotid doppler, echocardiogram and neurology evaluation * On warfarin w/ therapeutic INR, ASA (3) Diabetes mellitus with neuropathy: (4) Guillain Jean Baptiste syndrome: History of Present Illness Reason for Consultation: ESKD-PD Attending Physician: Radu Morris MD History of Present Illness Mr. Desai is a 69-year-old white male who is seen at the request of the [facility] hospitalist service to provide nocturnal continuous cyclic peritoneal dialysis and assist with medical management. Information for the HPI is obtained from direct patient interview and review of the EMR. HPI summarized as follows: Mr. Desai has ESKD due to diabetic kidney disease. Initially he underwent left radiocephalic AV fistula creation 01/02 but later chose peritoneal dialysis. He underwent peritoneal dialysis catheter placement 04/05. Unfortunately the procedure was complicated by bladder perforation. The catheter was later repositioned and the bladder repaired. Mr. Desai started peritoneal dialysis 06/05. His primary bun machine operator is Dr. Schafer. His outpatient dialysis prescription is as follows: CCPD starting at 8 PM. 4 exchanges/night. 2 L fill volume. 2.5% Delflex. Fill 10 minutes/dwell 90 minutes/drain 20 minutes. EDW 95 kg. Mr. Desai denies any recent complications with his and CCPD therapy. Specifically he has had no difficulty with fill/12/drain. He has had no fibrin within the tubing. His effluent has remained clear. He denies abdominal discomfort. Mr. Desai's medical history is also significant for hypertension, hyperlipidemia, history of PE requiring chronic Coumadin anticoagulation, AODM, PVD, Guillain-Jean Baptiste syndrome and CHF. He reports that 08/31/2024 he developed sudden onset of left vision loss. There was no trauma, ARAGON, focal neurologic weakness. His vision progressively got worse. Today he was seen by an mold builder and found to have central retinal artery occlusion. He was referred to the EMD to assess for potential source of CVA. Head CT was negative for stroke. Patient is currently awaiting echocardiogram, carotid Doppler studies and neurology evaluation. He reports that he will likely require an MRI. Mr. Desai states that recently he developed orthopnea. Bumetanide was increased from 2 mg to 4 mg twice daily. He reports that his breathing is markedly improved. Allergies Allergy/AdvReac Type Severity Reaction Status Date / Time atorvastatin AdvReac Intermediate Muscle Verified 04/24/24 12:22 aches bupropion [From Wellbutrin] AdvReac Intermediate Vivid Verified 04/24/24 12:22 dreams, hallucinations Uslyiqk-OMA-FqH Reductase AdvReac Intermediate Body aches Verified 04/24/24 12:22 Inhibitor [Ydxkxgy-Rls-Cem Reductase Inhibitor] Home Medications Medication Instructions Recorded Confirmed Type gabapentin 100 mg capsule 100 mg PO TID 03/26/20 09/06/24 History sertraline 100 mg tablet 100 mg PO PM 05/22/21 09/06/24 History fenofibrate micronized 43 mg 43 mg PO PM 08/06/22 09/06/24 History capsule rosuvastatin 20 mg tablet 20 mg PO QAM 11/25/22 09/06/24 History carvedilol 25 mg tablet (Coreg) 25 mg PO BID 12/31/22 09/06/24 History sertraline 50 mg tablet 50 mg PO PM 09/22/23 09/06/24 History warfarin 3 mg tablet 1.5 - 3 mg PO UD 09/22/23 09/06/24 History hydralazine 100 mg tablet 100 mg PO TID #270 tabs 11/17/23 09/06/24 Rx glipizide 5 mg tablet 10 mg PO QAM 01/06/24 09/06/24 History aspirin 81 mg tablet,delayed 81 mg PO PM 02/24/24 09/06/24 History release isosorbide mononitrate 60 mg 60 mg PO QAM 02/24/24 09/06/24 History tablet,extended release 24 hr oxycodone-acetaminophen 5 mg-325 1 tab PO Q6H PRN pain #20 tabs 03/15/24 09/06/24 Rx mg tablet (Percocet) amlodipine 5 mg tablet (Norvasc) 5 mg PO BID #180 tabs 03/16/24 09/06/24 Rx polyethylene glycol 3350 17 17 g PO DAILY 04/23/24 09/06/24 History gram/dose oral powder (Miralax) sevelamer HCl 800 mg tablet 800 mg PO TID 04/23/24 09/06/24 History ergocalciferol (vitamin D2) 25,000 50,000 unit PO WK 04/24/24 09/06/24 History unit capsule finasteride 5 mg tablet 5 mg PO QAM #90 tabs 07/11/24 09/06/24 Rx tamsulosin 0.4 mg capsule 0.4 mg PO DAILY #90 caps 07/25/24 09/06/24 Rx bumetanide 2 mg tablet 4 mg PO BID 09/06/24 09/06/24 History calcitriol 0.5 mcg capsule 0.5 mcg PO DAILY 09/06/24 09/06/24 History epoetin brenda-epbx 40,000 unit/mL 40,000 unit subcut MONTHLY 09/06/24 09/06/24 History injection solution (Retacrit) insulin aspart U-100 100 unit/mL 3 unit subcut BID 09/06/24 09/06/24 History (3 mL) subcutaneous pen (Novolog FlexPen U-100 Insulin aspart) insulin glargine 100 unit/mL (3 12 unit subcut HS 09/06/24 09/06/24 History mL) subcutaneous pen (Lantus Solostar U-100 Insulin) vitamin A-vitamin C-vit E-min 1 tab PO PM 09/06/24 09/06/24 History tablet Patient History Medical History Carotid artery disease Carotid doppler 11/17/23= 50-69% stenosis ICAs bilaterally. > 50% stenosis external carotid arteries bilaterally Limb alert care status left arm Presence of arteriovenous fistula for hemodialysis Left Wrist Arteriovenous Fistula Creation BPH (benign prostatic hyperplasia) Foot drop, right Hx of cardiac arrhythmia reason pt had heart cath several yrs ago, unsure exactly what it was, controlled now per pt CHF (congestive heart failure) follows with Dr. 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 Marshall/Rosalind Hx of colonoscopy Hx of bilateral hip replacements History of tonsillectomy Family History Brother Cancer Father Hypertension Diabetes Heart disease Dementia Mother Diabetes Social History Smoking Status: Never smoker Tobacco Type: Cigarettes Second Hand Exposure: No; Do You Dip or Chew Tobacco: No; Tobacco Cessation Education Requested by Patient: No Hx Alcohol Use: No Hx Substance Use: No Preferred Language: Jordanian Communication Ability: Effective Visual Impairment: Limited Hearing Ability: Normal Service Administrator Required: No Beliefs That Will Affect Care: None marital status: / Current Living Situation: Family Current Living Situation Comment: "daughter lives next door" current occupational status: retired Other Information That Helps Us Care for You: No Feels Safe at Home: Yes Safety Concerns: Feels Safe At This Time Diet: low salt caffeine: Yes (1 coffee daily) Physical Activity Frequency: Does not Exercise Do you think of yourself as: straight/heterosexual Gender Identity: Male Assistive Devices: Walker Review of Systems Constitutional: no fever Eyes: + worsening vision (acute vision loss L eye) Ear, Nose, Mouth, Throat: no problem reported Respiratory: no cough and no dyspnea Cardiovascular: no chest pain and no palpitations Gastrointestinal: no abdominal pain, no nausea, no vomiting and no diarrhea/loose stools Genitourinary: no dysuria or no difficulty urinating Neurologic: no problem reported Physical Exam Constitutional: not in distress Eyes: PERRL, conjunctivae normal, anicteric sclerae ENMT: external ear and nose normal, oropharynx normal Neck: trachea midline, no thyromegaly Respiratory: normal respiratory effort, lungs clear to auscultation Cardiovascular: RRR, no murmur, no edema Extremities: + AV fistula (+ bruit) Gastrointestinal (Abdomen): normal bowel sounds, soft, nontender, no hepatos plenomegaly PD exit site w/ clean dry dressing. Extension tubing remains in place Musculoskeletal: Extremities: no cyanosis and no clubbing Skin: no rashes, warm and dry Neurologic: awake; not confused Results & Data Vital Signs (Past 12 Hours) Vital Signs Temp Pulse Pulse Resp BP BP Pulse Ox 09/06/24 16:16 36.5 C 69 18 154/81 H 94 09/06/24 15:57 79 09/06/24 15:39 68 18 156/74 H 95 09/06/24 14:36 67 14 135/79 93 09/06/24 14:30 68 17 93 09/06/24 14:30 67 09/06/24 14:03 68 23 95 09/06/24 14:00 135/79 09/06/24 12:22 36.1 C L 74 20 96/45 L 94 O2 Del Method 09/06/24 16:16 Room Air 09/06/24 15:57 09/06/24 15:39 09/06/24 14:36 Room Air 09/06/24 14:30 09/06/24 14:30 09/06/24 14:03 09/06/24 14:00 09/06/24 12:22 Room Air Laboratory Results Laboratory Results WBC 8.53 K/ul (4.8-10.8) 09/06/24 12:43 RBC 3.62 M/uL (4.70-6.10) L 09/06/24 12:43 Hgb 10.7 g/dl (14.0-18.0) L 09/06/24 12:43 Hct 32.1 % (42.0-52.0) L 09/06/24 12:43 MCV 88.7 fL (80.0-100.0) 09/06/24 12:43 MCH 29.6 pg (25.0-34.0) 09/06/24 12:43 MCHC 33.3 g/dL (32.0-36.0) 09/06/24 12:43 RDW Std Deviation 43.8 fL (36.4-46.3) 09/06/24 12:43 RDW Coeff of Severiano 13.4 % (11.5-14.5) 09/06/24 12:43 Plt Count 178 K/uL (130-400) 09/06/24 12:43 MPV 10.3 fL (9.4-12.4) 09/06/24 12:43 Immature Gran % (Auto) 0.2 % 09/06/24 12:43 Neut % (Auto) 71.4 % 09/06/24 12:43 Lymph % (Auto) 19.2 % 09/06/24 12:43 Trimble % (Auto) 7.2 % 09/06/24 12:43 Eos % (Auto) 1.4 % 09/06/24 12:43 Baso % (Auto) 0.6 % 09/06/24 12:43 Neut # (Auto) 6.09 K/uL (1.40-6.50) 09/06/24 12:43 Lymph # (Auto) 1.64 K/uL (1.20-3.40) 09/06/24 12:43 Trimble # (Auto) 0.61 K/uL (0.11-0.59) H 09/06/24 12:43 Eos # (Auto) 0.12 K/uL (0.00-0.50) 09/06/24 12:43 Baso # (Auto) 0.05 K/uL (0.00-0.20) 09/06/24 12:43 Immature Gran # (Auto) 0.02 K/uL (0.01-0.20) 09/06/24 12:43 PT 24.5 Seconds (9.0-12.0) H 09/06/24 12:43 INR 2.4 (0.9-1.1) H 09/06/24 12:43 APTT 45 Seconds (21-31) H 09/06/24 12:43 PTT Ratio 1.7 09/06/24 12:43 Sodium 136 mmol/L (136-145) 09/06/24 12:43 Potassium 3.6 mmol/L (3.5-5.1) 09/06/24 12:43 Chloride 98 mmol/L (98-107) 09/06/24 12:43 Carbon Dioxide 26 mmol/L (21-32) 09/06/24 12:43 Anion Gap 12 (3-11) H 09/06/24 12:43 BUN 83 mg/dl (6-23) H 09/06/24 12:43 Creatinine 6.96 mg/dl (0.6-1.4) H* 09/06/24 12:43 Est Cr Clr Drug Dosing Not Reportable 09/06/24 12:43 eGFR 7.89 09/06/24 12:43 BUN/Creatinine Ratio 11.9 (10-20) 09/06/24 12:43 Glucose 208 mg/dl (70-99(Fasting)) H 09/06/24 12:43 POC Glucose 122 mg/dl (70-99) H 09/06/24 16:55 Calcium 9.0 mg/dl (8.6-10.3) 09/06/24 12:43 Magnesium 1.9 mg/dl (1.7-2.4) 09/06/24 12:43 Total Bilirubin 0.4 mg/dl (0.2-1.0) 09/06/24 12:43 AST 19 U/L (13-39) 09/06/24 12:43 ALT 10 U/L (7-52) 09/06/24 12:43 Alkaline Phosphatase 41 U/L (34-104) 09/06/24 12:43 Troponin I High Sens 186.1 pg/ml (0-20) H* 09/06/24 14:39 Total Protein 6.6 gm/dl (6.0-8.3) 09/06/24 12:43 Albumin 3.6 gm/dl (3.4-5.0) 09/06/24 12:43 Globulin 3.0 gm/dl (2.5-4.0) 09/06/24 12:43 Albumin/Globulin Ratio 1.2 (0.9-2) 09/06/24 12:43 Impressions Chest X-Ray 09/06/24 12:31 XR chest 1V portable CLINICAL HISTORY: neuro deficit, acute stroke suspected COMPARISON STUDY: 08/28/2024 FINDINGS: Stable mild cardiomegaly without pulmonary vascular congestion. No effusion, consolidation, or pneumothorax. Stable old healed left rib fractures. IMPRESSION: No acute findings. ACT 112: Negative or not required by law. Electronically signed by: Daryn Urbina M.D. 09/06/2024 1:[address] 09/06/24 12:31 CT head/brain wo con CLINICAL HISTORY: neuro deficit, acute stroke suspected. TECHNIQUE: Multiple axial CT images of the head were obtained without contrast. A dose lowering technique was utilized adhering to the principles of ALARA. CT DOSE: 625.8 mGy.cm COMPARISON: 09/21/2023 FINDINGS: No intracranial hemorrhage seen. No mass effect, midline shift, or hydrocephalus. Stable small area of hypodensity just lateral to the right basal ganglia, likely old infarction. No skull fracture seen. Visualized paranasal sinuses and mastoid air cells are clear. IMPRESSION: No acute findings. ACT 112: Negative or not required by law. The above report was generated using voice recognition software. It may contain grammatical, syntax or spelling errors. Electronically signed by: Daryn Urbina M.D. 09/06/2024 1:12 PM PG Care Time/CCT Total # of Minutes Spent Total Time Spent with Patient: Total time spent is greater than 50% in coordination of care (as documented) at patient's floor/unit and/or counseling patient: Coding Level of Care Code 93752 IN/OBS CONSULT LVL 5,80M Diagnoses End-stage renal disease needing dialysis N18.6; Z99.2 Vision loss, left eye H54.62 Diabetes mellitus with neuropathy E11.40 Guillain Jean Baptiste syndrome G61.0
[2024-09-06] MEDS: INSULIN ASPART PER UNIT CHARGE SC SCH (18:12)
[2024-09-06] MEDS: ATORVASTATIN 40 MG TAB PO SCH (18:13)
--- NOTE | 2024-09-06 19:43 | Magnetic Resonance Report ---
Clinical History: Loss of vision in left eye Technique: Multiple T1 and T2-weighted magnetic resonance images were obtained of the brain without gadolinium contrast Findings: There is no sign of acute or old infarction with normal-appearing diffusion weighted images. There is cerebral atrophy, within expected limits for the patient's age. There are small areas of increased T2 signal intensity within the periventricular white matter of the cerebral hemispheres bilaterally. This is most likely due to chronic small vessel ischemic disease. No definite mass lesion is seen on this noncontrast study. There is no intracranial hemorrhage or other fluid collection. No midline shift or other form of herniation is seen. There is no hydrocephalus. Normal flow-voids are seen within the arteries of the fjclad-vd-Qjxdtn. The orbits and paranasal sinuses appear normal. The mastoid air cells appear clear. Impression: 1. Cerebral atrophy and mild chronic small vessel ischemic disease 2. Otherwise unremarkable noncontrast MRI of the brain Electronically signed by Romeo Duval 09-06-2024 7:43 PM
[2024-09-06] MEDS: SODIUM BICARBONATE 650 MG TAB PO SCH (20:42)
[2024-09-06] MEDS: BUMETANIDE 1 MG TAB PO SCH (20:43)
[2024-09-06] MEDS: carvediloL 6.25 MG TAB PO SCH (20:43)
[2024-09-06] MEDS: SEVELAMER CARBONATE 800 MG TAB PO SCH (20:44)
[2024-09-06] MEDS: GABAPENTIN 100 MG CAP PO SCH (20:44)
[2024-09-06] MEDS: SERTRALINE HCL 50 MG TABLET PO SCH (20:45)
[2024-09-06] MEDS: SERTRALINE HCL 100 MG TABLET PO SCH (20:45)
[2024-09-06] MEDS: ASPIRIN 81 MG ECTAB PO SCH (20:45)
[2024-09-06] MEDS: MULTIVITAMIN TAB PO SCH (20:45)
[2024-09-06] MEDS: WARFARIN SOD 0.5 MG TAB PO SCH (21:53)
[2024-09-06] MEDS: WARFARIN SOD 1 MG TAB PO SCH (21:53)
[2024-09-06] MEDS: LANTUS PER UNIT CHARGE SQ SCH (21:54)
--- NOTE | 2024-09-07 04:06 | Ultrasound Report ---
EXAM: US carotid doppler BI CLINICAL HISTORY: stroke-like sx TECHNIQUE: The carotid arteries were examined using duplex ultrasound in real time. One or more of the following were performed: spectral analysis, resistive index, waveform analysis, and pulsed Doppler. COMPARISON: None. FINDINGS: The exam was limited by shadowing from plaques seen in the right proximal ECA, right mid ICA, left proximal ECA, and left mid ICA. Doppler Profile: Vessel Right (PSV/EDV cm/sec) Left (PSV/EDV cm/sec) Common Carotid Artery (CCA) proximal: 109.6/15 Distal: 83.8/18.1 69.5/11.6 63.3/10.8 Bulb 86.4/16.1 51.5/8.7 Internal Carotid Artery (ICA) - Proximal 78.3/10.8-173.9/35 205/39 Internal Carotid Artery (ICA) - Distal 151/38 29.5/6.3 External Carotid Artery (ECA) 153-351 353- Vertebral Artery (VA) 46/7.7 49.2/18.6 Right ICA/CCA Ratio 4.4/4.7 Left ICA/CCA Ratio 4.6/9.1 Plaque Characterization: Multiple calcified atherosclerotic plaques, seen at both CCA, ECA, and ICA, more severe at right proximal ECA, right mid ICA, left proximal ECA, left mid ICA, with shadowing effect. Stenosis Evaluation: No significant stenosis in the internal carotid artery bilaterally. ICA/CCA ratios are elevated, exceeding the normal limits (less than 2.0). Vertebral Arteries: Antegrade flow noted in the vertebral arteries bilaterally. IMPRESSION: 1. Multiple calcified atherosclerotic plaques, seen at both CCA, ECA, and ICA, more severe at right proximal ECA, right mid ICA, left proximal ECA, left mid ICA, with a shadowing effect. 2. ICA/CCA ratios are elevated. 3. Elevated PSV of both internal and external carotid arteries, with moderate stenosis values of ICAs, and severe stenosis values of ECAs. Recommendations: Clinical correlation with symptoms and further evaluation as indicated. Routine follow-up or additional imaging may be recommended based on clinical presentation or if significant plaque is identified. NASCET Criteria for carotid stenosis: Degree of Stenosis Measurement Criteria (Angiography) Peak Systolic Velocity (PSV) End Diastolic Velocity (EDV) PSV Ratio ICA/CCA Clinical Indications for Surgery Normal No narrowing 125 cm/s 40 cm/s 2.0 Not indicated for surgery Mild Stenosis 50% narrowing of the carotid artery 125 cm/s 40 cm/s 2.0 Generally, not indicated for surgery Moderate Stenosis 50% to 69% narrowing of the carotid artery 125 - 230 cm/s 40 - 100 cm/s 2.0 - 4.0 May be considered for surgery based on individual factors Severe Stenosis 70% to 99% narrowing of the carotid artery 230 cm/s 100 cm/s 4.0 Recommended for surgery in symptomatic patients Total Occlusion 100% blockage of the carotid artery No flow detected No flow detected Not applicable Surgery is not typically performed due to complete blockage Electronically signed by Torsten Castro 09-07-2024 04:06 AM
[2024-09-07 08:21] LABS: Hematocrit (blood only) 29.7 % (42.0-52.0); Hemoglobin 10.2 g/dl (14.0-18.0); Mean Corpuscular Hemoglobin 30.4 pg (25.0-34.0); Mean Corpuscular Hgb Conc 34.3 g/dL (32.0-36.0); Mean Corpuscular Volume 88.4 fL (80.0-100.0); Mean Platelet Volume 10.6 fL (9.4-12.4); Platelet Count 154 K/uL (130-400); RDW Coefficient of Variation 13.4 % (11.5-14.5); RDW Standard Deviation 43.3 fL (36.4-46.3); Red Blood Count 3.36 M/uL (4.70-6.10); White Blood Count 7.91 K/ul (4.8-10.8)
[2024-09-07 08:41] LABS: BUN Creatinine Ratio 12.6 (10-20); Calcium 8.6 mg/dl (8.6-10.3); Chol HDL Ratio 4.2 (0-5); Potassium 3.4 mmol/L (3.5-5.1)
[2024-09-07 08:44] LABS: INR 2.6 (0.9-1.1); Prothrombin Time 26.1 Seconds (9.0-12.0)
[2024-09-07] MEDS: TAMSULOSIN HCL 0.4 MG CAP PO SCH (08:48)
[2024-09-07] MEDS: FENOFIBRATE NANOCRYSTALLIZED 48 MG TABLET PO SCH (08:49)
[2024-09-07] MEDS: FINASTERIDE 5 MG TAB PO SCH (08:49)
[2024-09-07] MEDS: ISOSORBIDE MONO EXTENDED REL 60 MG TABCR PO SCH (08:49)
[2024-09-07] MEDS: POLYETHYLENE (MIRALAX) 17 GM PACK PO SCH (08:54)
--- NOTE | 2024-09-07 08:54 | Nephrology Progress Note ---
Date of Service September 07, 2024 Assessment & Plan (1) End-stage renal disease needing dialysis: Plan: * Patient appears clinically euvolemic. Electrolyte balance is acceptable. * Will provide peritoneal dialysis this evening according to chronic outpatient orders * NCCPD orders were placed in the EMR and on-call HD RN notified * BMP in am * Continue bumetanide. Monitor UO (2) Vision loss, left eye: Plan: * Ophthalmology evaluation today concerning for central retinal artery occlusion * Head CT negative for CVA * Brain MRI without significant abnormality * Carotid doppler show bilateral ICA stenosis. Will likely benefit from vascular surgery evaluation * Await echocardiogram and neurology evaluation * On warfarin w/ therapeutic INR, ASA (3) Diabetes mellitus with neuropathy: (4) Guillain Jean Baptiste syndrome: Admission and Anticipated Discharge Date Admission Date: September 06, 2024 Subjective Mr. Desai was evaluated in his hospital room this morning. NCCPD was held last evening to allow travel for carotid dopplers and MRI of the brain. Mr. Desai voices no new medical concerns but notes that L eye vision has not returned. Review of Systems Constitutional: no fever Eyes: + worsening vision (acute vision loss L eye) Ear, Nose, Mouth, Throat: no problem reported Respiratory: no cough and no dyspnea Cardiovascular: no chest pain and no palpitations Gastrointestinal: no abdominal pain, no nausea, no vomiting and no diarrhea/loose stools Genitourinary: no dysuria or no difficulty urinating Neurologic: no problem reported Physical Exam Constitutional: not in distress Eyes: PERRL, conjunctivae normal, anicteric sclerae ENMT: external ear and nose normal, oropharynx normal Neck: trachea midline, no thyromegaly Respiratory: normal respiratory effort, lungs clear to auscultation Cardiovascular: RRR, no murmur, no edema Extremities: + AV fistula (+ bruit) Gastrointestinal (Abdomen): normal bowel sounds, soft, nontender, no hepatosplenomegaly Musculoskeletal: Extremities: no cyanosis and no clubbing Skin: no rashes, warm and dry Neurologic: awake; not confused Results & Data Vital Signs (Past 12 Hours) Vital Signs Temp Pulse Pulse Resp BP Pulse Ox O2 Del Method 09/07/24 07:37 36.6 C 63 18 151/82 H 95 Room Air 09/07/24 02:35 36.7 C 67 18 167/73 H 91 Room Air 09/06/24 22:17 36.4 C L 64 18 152/80 H 96 Room Air 09/06/24 21:49 61 Laboratory Results Laboratory Results - last 24 hr 09/06/24 09/06/24 09/06/24 12:43 14:39 16:55 WBC 8.53 RBC 3.62 L Hgb 10.7 L Hct 32.1 L MCV 88.7 MCH 29.6 MCHC 33.3 RDW Std Deviation 43.8 RDW Coeff of Severiano 13.4 Plt Count 178 MPV 10.3 Immature Gran % (Auto) 0.2 Neut % (Auto) 71.4 Lymph % (Auto) 19.2 Payne % (Auto) 7.2 Eos % (Auto) 1.4 Baso % (Auto) 0.6 Neut # (Auto) 6.09 Lymph # (Auto) 1.64 Payne # (Auto) 0.61 H Eos # (Auto) 0.12 Baso # (Auto) 0.05 Immature Gran # (Auto) 0.02 PT 24.5 H INR 2.4 H APTT 45 H PTT Ratio 1.7 Sodium 136 Potassium 3.6 Chloride 98 Carbon Dioxide 26 Anion Gap 12 H BUN 83 H Creatinine 6.96 H* Est Cr Clr Drug Dosing Not Reportable eGFR 7.89 BUN/Creatinine Ratio 11.9 Glucose 208 H POC Glucose 122 H Estimat Average Glucose Hemoglobin A1c Calcium 9.0 Magnesium 1.9 Total Bilirubin 0.4 AST 19 ALT 10 Alkaline Phosphatase 41 Troponin I High Sens 197.6 H* 186.1 H* Total Protein 6.6 Albumin 3.6 Globulin 3.0 Albumin/Globulin Ratio 1.2 Triglycerides Cholesterol LDL Cholesterol, Calc VLDL Cholesterol, Calc HDL Cholesterol Cholesterol/HDL Ratio 09/06/24 09/06/24 09/07/24 20:48 21:29 01:23 WBC RBC Hgb Hct MCV MCH MCHC RDW Std Deviation RDW Coeff of Severiano Plt Count MPV Immature Gran % (Auto) Neut % (Auto) Lymph % (Auto) Payne % (Auto) Eos % (Auto) Baso % (Auto) Neut # (Auto) Lymph # (Auto) Payne # (Auto) Eos # (Auto) Baso # (Auto) Immature Gran # (Auto) PT INR APTT PTT Ratio Sodium Potassium Chloride Carbon Dioxide Anion Gap BUN Creatinine Est Cr Clr Drug Dosing eGFR BUN/Creatinine Ratio Glucose POC Glucose 92 Estimat Average Glucose Hemoglobin A1c Calcium Magnesium Total Bilirubin AST ALT Alkaline Phosphatase Troponin I High Sens 180.5 H* 176.6 H* Total Protein Albumin Globulin Albumin/Globulin Ratio Triglycerides Cholesterol LDL Cholesterol, Calc VLDL Cholesterol, Calc HDL Cholesterol Cholesterol/HDL Ratio 09/07/24 09/07/24 09/07/24 04:58 07:20 07:31 WBC 7.91 RBC 3.36 L Hgb 10.2 L Hct 29.7 L MCV 88.4 MCH 30.4 MCHC 34.3 RDW Std Deviation 43.3 RDW Coeff of Severiano 13.4 Plt Count 154 MPV 10.6 Immature Gran % (Auto) Neut % (Auto) Lymph % (Auto) Payne % (Auto) Eos % (Auto) Baso % (Auto) Neut # (Auto) Lymph # (Auto) Payne # (Auto) Eos # (Auto) Baso # (Auto) Immature Gran # (Auto) PT 26.1 H INR 2.6 H APTT PTT Ratio Sodium 138 Potassium 3.4 L Chloride 98 Carbon Dioxide 26 Anion Gap 14 H BUN 89 H Creatinine 7.05 H* Est Cr Clr Drug Dosing 11.0 eGFR 7.77 BUN/Creatinine Ratio 12.6 Glucose 166 H POC Glucose 59 L* 171 H Estimat Average Glucose Pending Hemoglobin A1c Pending Calcium 8.6 Magnesium Total Bilirubin AST ALT Alkaline Phosphatase Troponin I High Sens Total Protein Albumin Globulin Albumin/Globulin Ratio Triglycerides 245 H Cholesterol 146 LDL Cholesterol, Calc 62 VLDL Cholesterol, Calc 49 H HDL Cholesterol 35 Cholesterol/HDL Ratio 4.2 Diagnostic Findings 09/06/24 Brain MRI: 1. Cerebral atrophy and mild chronic small vessel ischemic disease 2. Otherwise unremarkable noncontrast MRI of the brain 09/06/24 carotid doppler: 1. Multiple calcified atherosclerotic plaques, seen at both CCA, ECA, and ICA, more severe at right proximal ECA, right mid ICA, left proximal ECA, left mid ICA, with a shadowing effect. 2. ICA/CCA ratios are elevated. 3. Elevated PSV of both internal and external carotid arteries, with moderate stenosis values of ICAs, and severe stenosis values of ECAs. PG Care Time/CCT Total # of Minutes Spent Total Time Spent with Patient: Total time spent is greater than 50% in coordination of care (as documented) at patient's floor/unit and/or counseling patient: Coding Level of Care Code 99103 SUB INP/OBS CARE MIN Diagnoses End-stage renal disease needing dialysis N18.6; Z99.2 Vision loss, left eye H54.62 Diabetes mellitus with neuropathy E11.40 Guillain Jean Baptiste syndrome G61.0
[2024-09-07] MEDS ORDERED: CALCITRIOL 0.25 MCG CAPSULE PO SCH (09:00)
[2024-09-07 10:21] LABS: Estimated Average Glucose 169 mg/dl; Hemoglobin A1C 7.5 % (4.5-5.6)
--- NOTE | 2024-09-07 10:34 | Neurology Consultation ---
Date of Consultation September 07, 2024 Assessment & Plan (1) Central artery occlusion of retina: Herb Desai is a 69 yo M presenting with symptomatic carotid stenosis despite maximal medical management with a L CRAO. Recommend anatomic imaging as the CUS is likely undercalling the degree of stenosis due to calcific shadow. Recommend vascular surgery consult after anatomic imaging. Would ideally intervene within the next week to prevent further thrombotic risk. -- CTA head and neck -- Vascular surgery consult -- Please contact us with any further questions, we will follow. Telehealth Consultation Telehealth Information Telehealth Information: I performed this visit using a real-time telehealth connection between my location and the patients location ([facility]). After connecting through interactive tele-video, patient was identified by name and date of and/or wristband check.Patient (or authorized healthcare client care representative) was informed that this was a telemedicine visit and it was being conducted confidentially over secure lines. My office door was closed and no one else was present in the room with me.Patient (or authorized healthcare client care representative) provided consent to proceed with the visit, expressed an understanding of privacy and security of the telemedicine visit, and gave permission to have a hospital client care representative in the room in order to assist with the visit and to conduct portions of the visit, as needed. I informed the patient (or authorized healthcare client care representative) that I reviewed their record and presented the opportunity for them to ask any questions regarding the visit today. The patient agreed to participate. History of Present Illness Reason for Consultation: L central retinal artery occlusion Requesting Physician: Dr. Henderson Attending Physician: Gab Henderson MD History of Present Illness Herb Desai is a 69 yo M presenting with a week of L eye vision loss found to have a L central retinal artery occlusion. The patient reports he was awake when his vision went black in the L eye. Since then he has regained a little vision centrally. He denies any difficulty speaking, no weakness or numbness otherwise. 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 He otherwise reports compliance with his warfarin/aspirin. Allergies Allergy/AdvReac Type Severity Reaction Status Date / Time atorvastatin AdvReac Intermediate Muscle Verified 04/24/24 12:22 aches bupropion [From Wellbutrin] AdvReac Intermediate Vivid Verified 04/24/24 12:22 dreams, hallucinations Efygmon-SEZ-GbP Reductase AdvReac Intermediate Body aches Verified 04/24/24 12:22 Inhibitor [Iqnchyd-Kxp-Xez Reductase Inhibitor] Home Medications Medication Instructions Recorded Confirmed Type gabapentin 100 mg capsule 100 mg PO TID 03/26/20 09/06/24 History sertraline 100 mg tablet 100 mg PO PM 05/22/21 09/06/24 History fenofibrate micronized 43 mg 43 mg PO PM 08/06/22 09/06/24 History capsule rosuvastatin 20 mg tablet 20 mg PO QAM 11/25/22 09/06/24 History carvedilol 25 mg tablet (Coreg) 25 mg PO BID 12/31/22 09/06/24 History sertraline 50 mg tablet 50 mg PO PM 09/22/23 09/06/24 History warfarin 3 mg tablet 1.5 - 3 mg PO UD 09/22/23 09/06/24 History hydralazine 100 mg tablet 100 mg PO TID #270 tabs 11/17/23 09/06/24 Rx glipizide 5 mg tablet 10 mg PO QAM 01/06/24 09/06/24 History aspirin 81 mg tablet,delayed 81 mg PO PM 02/24/24 09/06/24 History release isosorbide mononitrate 60 mg 60 mg PO QAM 02/24/24 09/06/24 History tablet,extended release 24 hr amlodipine 5 mg tablet (Norvasc) 5 mg PO BID #180 tabs 03/16/24 09/06/24 Rx polyethylene glycol 3350 17 17 g PO DAILY 04/23/24 09/06/24 History gram/dose oral powder (Miralax) sevelamer HCl 800 mg tablet 800 mg PO TID 04/23/24 09/06/24 History ergocalciferol (vitamin D2) 25,000 50,000 unit PO WK 04/24/24 09/06/24 History unit capsule finasteride 5 mg tablet 5 mg PO QAM #90 tabs 07/11/24 09/06/24 Rx tamsulosin 0.4 mg capsule 0.4 mg PO DAILY #90 caps 07/25/24 09/06/24 Rx bumetanide 2 mg tablet 4 mg PO BID 09/06/24 09/06/24 History epoetin brenda-epbx 40,000 unit/mL 40,000 unit subcut MONTHLY 09/06/24 09/06/24 History injection solution (Retacrit) insulin aspart U-100 100 unit/mL 3 unit subcut BID 09/06/24 09/06/24 History (3 mL) subcutaneous pen (Novolog FlexPen U-100 Insulin aspart) insulin glargine 100 unit/mL (3 12 unit subcut HS 09/06/24 09/06/24 History mL) subcutaneous pen (Lantus Solostar U-100 Insulin) sodium bicarbonate 650 mg tablet 650 mg PO BID 09/06/24 09/06/24 History vitamin A-vitamin C-vit E-min 1 tab PO PM 09/06/24 09/06/24 History tablet Patient History Medical History Carotid artery disease Carotid doppler 11/17/23= 50-69% stenosis ICAs bilaterally. > 50% stenosis e xternal carotid arteries bilaterally Limb alert care status left arm Presence of arteriovenous fistula for hemodialysis Left Wrist Arteriovenous Fistula Creation BPH (benign prostatic hyperplasia) Foot drop, right Hx of cardiac arrhythmia reason pt had heart cath several yrs ago, unsure exactly what it was, controlled now per pt CHF (congestive heart failure) follows with Dr. Marshall in [place] Left renal mass Vitamin D deficiency Anemia Depression, unspecified HTN (hypertension) controlled, stable per pt Hx of Guillain-Rayne syndrome 2012 Diabetes mellitus NIDDM Stage 5 chronic kidney disease due to type 2 diabetes mellitus Dyslipidemia End stage renal disease no dialysis at present Hx pulmonary embolism 2007 > warfarin for this > due to prolonged travel > later discovered has a c lotting disorder, a few cousins have it as well, but pt unsure of the name of the disorder Edema RLE (chronic issue x years after nerve procedure) Surgical History History of surgery Continuous Ambulatory Peritoneal Dialysis Catheter 03/15/24 History of esophagogastroduodenoscopy (EGD) Hx of foot surgery right, nerve surgery > caused foot drop History of back surgery lumbar Hx of cardiac catheterization Remote hx many yrs ago > no stents Follows w/ Dr. Marshall/[place] Hx of colonoscopy Hx of bilateral hip replacements History of tonsillectomy Family History Brother Cancer Father Hypertension Diabetes Heart disease Dementia Mother Diabetes Social History Smoking Status: Never smoker Tobacco Type: Cigarettes Second Hand Exposure: No; Do You Dip or Chew Tobacco: No; Tobacco Cessation Education Requested by Patient: No Hx Alcohol Use: No Hx Substance Use: No Preferred Language: Turkish Communication Ability: Effective Visual Impairment: Limited Hearing Ability: Normal Hotel Lobby Concierge Required: No Beliefs That Will Affect Care: None marital status: / Current Living Situation: Family Current Living Situation Comment: "daughter lives next door" current occupational status: retired Other Information That Helps Us Care for You: No Feels Safe at Home: Yes Safety Concerns: Feels Safe At This Time Diet: low salt caffeine: Yes (1 coffee daily) Physical Activity Frequency: Does not Exercise Do you think of yourself as: straight/heterosexual Gender Identity: Male Assistive Devices: Walker Review of Systems +L eye vision loss Physical Exam Neurological Examination: Mental Status: Awake and alert. Oriented to person, place, and time. Fluent. Comprehension intact. Affect appropriate. Cranial Nerves: II: Reads NIHSS cards, Reduced vision L eye III/IV/: Versions intact without nystagmus, no gaze preference. V: Facial sensation symmetric to light touch VII: Facial expression symmetric VIII: Hearing intact to voice IX/X: Palate elevates symmetrically XI: Shoulder shrug symmetric XII: Tongue midline Motor: Strength was symmetric and antigravity throughout. Pronator drift was absent. There were no abnormal movements. Sensory: Sensation to light touch was intact. Reflexes: Unable to assess over telemedicine Results & Data Vital Signs (Past 12 Hours) Vital Signs Temp Pulse Resp BP Pulse Ox O2 Del Method 09/07/24 07:37 36.6 C 63 18 151/82 H 95 Room Air 09/07/24 02:35 36.7 C 67 18 167/73 H 91 Room Air Laboratory Results Abnormal lab results 09/06/24 09/06/24 09/06/24 Range/Units 12:43 14:39 16:55 RBC 3.62 L (4.70-6.10) M/uL Hgb 10.7 L (14.0-18.0) g/dl Hct 32.1 L (42.0-52.0) % [place] # (Auto) 0.61 H (0.11-0.59) K/uL PT 24.5 H (9.0-12.0) Seconds INR 2.4 H (0.9-1.1) APTT 45 H (21-31) Seconds Potassium (3.5-5.1) mmol/L Anion Gap 12 H (3-11) BUN 83 H (6-23) mg/dl Creatinine 6.96 H* (0.6-1.4) mg/dl Glucose 208 H (70-99(Fasting)) mg/dl POC Glucose 122 H (70-99) mg/dl Hemoglobin A1c (4.5-5.6) % Troponin I High Sens 197.6 H* 186.1 H* (0-20) pg/ml Triglycerides (0-150) mg/dl VLDL Cholesterol, Calc (0-30) mg/dl 09/06/24 09/07/24 09/07/24 Range/Units 20:48 01:23 04:58 RBC (4.70-6.10) M/uL Hgb (14.0-18.0) g/dl Hct (42.0-52.0) % [place] # (Auto) (0.11-0.59) K/uL PT (9.0-12.0) Seconds INR (0.9-1.1) APTT (21-31) Seconds Potassium (3.5-5.1) mmol/L Anion Gap (3-11) BUN (6-23) mg/dl Creatinine (0.6-1.4) mg/dl Glucose (70-99(Fasting)) mg/dl POC Glucose 59 L* (70-99) mg/dl Hemoglobin A1c (4.5-5.6) % Troponin I High Sens 180.5 H* 176.6 H* (0-20) pg/ml Triglycerides (0-150) mg/dl VLDL Cholesterol, Calc (0-30) mg/dl 09/07/24 09/07/24 Range/Units 07:20 07:31 RBC 3.36 L (4.70-6.10) M/uL Hgb 10.2 L (14.0-18.0) g/dl Hct 29.7 L (42.0-52.0) % [place] # (Auto) (0.11-0.59) K/uL PT 26.1 H (9.0-12.0) Seconds INR 2.6 H (0.9-1.1) APTT (21-31) Seconds Potassium 3.4 L (3.5-5.1) mmol/L Anion Gap 14 H (3-11) BUN 89 H (6-23) mg/dl Creatinine 7.05 H* (0.6-1.4) mg/dl Glucose 166 H (70-99(Fasting)) mg/dl POC Glucose 171 H (70-99) mg/dl Hemoglobin A1c 7.5 H (4.5-5.6) % Troponin I High Sens (0-20) pg/ml Triglycerides 245 H (0-150) mg/dl VLDL Cholesterol, Calc 49 H (0-30) mg/dl Diagnostic Findings MRI brain - Unremarkable CUS - elevated velocities but otherwise obscured by heavily calcific plaque.
[2024-09-07] MEDS: OPTIRAY 320 125ml IV ONE (12:34)
--- NOTE | 2024-09-07 13:27 | CT Scan Report ---
CT angio neck wo/w con CLINICAL HISTORY: 69 years-old Male with carotid stenosis. COMPARISON STUDY: Brain MRI and head CT studies 09/06/2024, carotid ultrasound 09/07/2024 TECHNIQUE: Following the IV administration of 118 mL of Optiray, CT angiogram of the neck was perform ed from the aortic arch to the skull base. Images are reviewed in the axial, sagittal, and coronal pl anes. 3-D MIPS images are created and assessed. IV contrast was administered without complication. Al l measurements were calculated based on NASCET criteria. A dose lowering technique was utilized adhe ring to the principles of ALARA. CT DOSE: 852.25 mGy.cm FINDINGS: Four-vessel morphology of the thoracic aortic arch which demonstrates moderate atherosclerosis. Paten cy of the innominate and image subclavian arteries. The common carotid arteries are patent with moder ate atherosclerosis. There is high-grade stenosis of at least 80% involving the proximal cervical seg ment right ICA secondary to severe plaque. Additionally, there is high-grade stenosis at the origin o f the right external carotid artery. There is high-grade stenosis of greater than 80% involving the o rigin of the left ICA secondary to severe calcified plaque with high-grade stenosis also noted at the origin of the left external carotid artery. The remaining internal carotid arteries are patent. Mode rate stenosis at the origin of the dominant left vertebral artery. Atherosclerotic plaque of the V4 s egment left vertebral artery causes a short segment high-grade stenosis. Developmentally diminutive r ight vertebral artery is patent without high-grade stenosis. Patent basilar artery. Unremarkable soft tissues. Borderline enlarged right paratracheal lymph node. No pneumothorax. Degene rative changes of the spine without acute fracture. The imaged intracranial structures are unremarkab le with chronic microvascular ischemic disease. IMPRESSION: 1. Severe atherosclerosis of the carotid bulbs and proximal internal carotid arteries causing high-gr julito stenosis at the origins of the bilateral internal and external carotid arteries. 2. Dominant left vertebral artery with stenosis at its origin and also within the V4 segment. ACT 112: Negative or not required by law. The above report was generated using voice recognition software. It may contain grammatical, syntax o r spelling errors. Electronically signed by: Alan Chaudhary M.D. 09/07/2024 1:25 PM
--- NOTE | 2024-09-07 14:00 | History & Physical Report ---
Date of Service September 07, 2024 Assessment & Plan (1) Carotid artery stenosis, symptomatic: Plan: Patient with significant bilateral carotid artery stenosis. Recommend intervention to both sides starting with the left symptomatic side. We discussed the risks of endarterectomy vs TCAR. He understood and agreed to go ahead with a tcar. He needs to stay on DAPT and a statin, non stop till 30 days post surgery. We will try to have it scheduled within the next two weeks. Thank you very much for letting us participate in the care of this patient. Admission and Anticipated Discharge Date Admission Date: September 06, 2024 History of Present Illness Chief Complaint: left retinal artery occlusion Primary Care Provider: Asaf Younger MD This is a 69yo male on peritoneal dialysis. He developed visual changes over the last few weeks. 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 He denies any other focal deficits. PMHx of end-stage renal disease on peritoneal dialysis, HTN, HLD, history of PE on chronic Coumadin, DM type II, peripheral vascular disease, and CHF. Allergies Allergy/AdvReac Type Severity Reaction Status Date / Time atorvastatin AdvReac Intermediate Muscle Verified 04/24/24 12:22 aches bupropion [From Wellbutrin] AdvReac Intermediate Vivid Verified 04/24/24 12:22 dreams, hallucinations Siuptwy-POO-IvF Reductase AdvReac Intermediate Body aches Verified 04/24/24 12:22 Inhibitor [Qqpddej-Gxq-Zpw Reductase Inhibitor] Home Medications Medication Instructions Recorded Confirmed Type gabapentin 100 mg capsule 100 mg PO TID 03/26/20 09/06/24 History sertraline 100 mg tablet 100 mg PO PM 05/22/21 09/06/24 History fenofibrate micronized 43 mg 43 mg PO PM 08/06/22 09/06/24 History capsule rosuvastatin 20 mg tablet 20 mg PO QAM 11/25/22 09/06/24 History carvedilol 25 mg tablet (Coreg) 25 mg PO BID 12/31/22 09/06/24 History sertraline 50 mg tablet 50 mg PO PM 09/22/23 09/06/24 History warfarin 3 mg tablet 1.5 - 3 mg PO UD 09/22/23 09/06/24 History hydralazine 100 mg tablet 100 mg PO TID #270 tabs 11/17/23 09/06/24 Rx glipizide 5 mg tablet 10 mg PO QAM 01/06/24 09/06/24 History aspirin 81 mg tablet,delayed 81 mg PO PM 02/24/24 09/06/24 History release isosorbide mononitrate 60 mg 60 mg PO QAM 02/24/24 09/06/24 History tablet,extended release 24 hr amlodipine 5 mg tablet (Norvasc) 5 mg PO BID #180 tabs 03/16/24 09/06/24 Rx polyethylene glycol 3350 17 17 g PO DAILY 04/23/24 09/06/24 History gram/dose oral powder (Miralax) sevelamer HCl 800 mg tablet 800 mg PO TID 04/23/24 09/06/24 History ergocalciferol (vitamin D2) 25,000 50,000 unit PO WK 04/24/24 09/06/24 History unit capsule finasteride 5 mg tablet 5 mg PO QAM #90 tabs 07/11/24 09/06/24 Rx tamsulosin 0.4 mg capsule 0.4 mg PO DAILY #90 caps 07/25/24 09/06/24 Rx bumetanide 2 mg tablet 4 mg PO BID 09/06/24 09/06/24 History epoetin brenda-epbx 40,000 unit/mL 40,000 unit subcut MONTHLY 09/06/24 09/06/24 History injection solution (Retacrit) insulin aspart U-100 100 unit/mL 3 unit subcut BID 09/06/24 09/06/24 History (3 mL) subcutaneous pen (Novolog FlexPen U-100 Insulin aspart) insulin glargine 100 unit/mL (3 12 unit subcut HS 09/06/24 09/06/24 History mL) subcutaneous pen (Lantus Solostar U-100 Insulin) sodium bicarbonate 650 mg tablet 650 mg PO BID 09/06/24 09/06/24 History vitamin A-vitamin C-vit E-min 1 tab PO PM 09/06/24 09/06/24 History tablet Past Med/Surg History Problem List (Updated 09/07/24 @ 14:03 by Herb Scott MD) Carotid artery stenosis, symptomatic Central artery occlusion of retina (Acute) Stroke-like symptoms (Acute) Peritoneal dialysis catheter in place Stroke-like symptom Vision loss, left eye Pulmonary edema PD catheter dysfunction End-stage renal disease needing dialysis Dyslipidemia, goal LDL below 70 Stage 5 chronic kidney disease due to type 2 diabetes mellitus Lower urinary tract symptoms (LUTS) Encounter for pre-operative examination Complex renal cyst Chronic diastolic CHF (congestive heart failure) Acute hyperkalemia (Acute) 08/19/22 Left renal mass Under surveillance SOB (shortness of breath) 08/06/22 Anemia due to chronic kidney disease Baseline hgb 11-12 range per chart review Vitamin D deficiency Depression, unspecified Postlaminectomy syndrome Right foot drop PVD (peripheral vascular disease) Diabetes mellitus with neuropathy Obesity (Chronic) Statin intolerance (Chronic) Hyperlipidemia (Chronic) HTN (hypertension) (Chronic) Hx pulmonary embolism 2007 History of back surgery History of hip surgery Acute kidney injury 03/20/17 Guillain Jean Baptiste syndrome 2012 Medical History Carotid artery disease Carotid doppler 11/17/23= 50-69% stenosis ICAs bilaterally. > 50% stenosis external carotid arteries bilaterally Limb alert care status left arm Presence of arteriovenous fistula for hemodialysis Left Wrist Arteriovenous Fistula Creation BPH (benign prostatic hyperplasia) Foot drop, right Hx of cardiac arrhythmia reason pt had heart cath several yrs ago, unsure exactly what it was, controlled now per pt CHF (congestive heart failure) follows with Dr. Marshall in [place] Left renal mass Vitamin D deficiency Anemia Depression, unspecified HTN (hypertension) controlled, stable per pt Hx of Guillain-Riverside syndrome 2012 Diabetes mellitus NIDDM Stage 5 chronic kidney disease due to type 2 diabetes mellitus Dyslipidemia End stage renal disease no dialysis at present Hx pulmonary embolism 2007 > warfarin for this > due to prolonged travel > later discovered has a clotting disorder, a few cousins have it as well, but pt unsure of the name of the disorder Edema RLE (chronic issue x years after nerve procedure) Surgical History History of surgery Continuous Ambulatory Peritoneal Dialysis Catheter 03/15/24 History of esophagogastroduodenoscopy (EGD) Hx of foot surgery right, nerve surgery > caused foot drop History of back surgery lumbar Hx of cardiac catheterization Remote hx many yrs ago > no stents Follows w/ Dr. Marshall/[place] Hx of colonoscopy Hx of bilateral hip replacements History of tonsillectomy Family History Brother Cancer Father Hypertension Diabetes Heart disease Dementia Mother Diabetes Social History Smoking Status: Never smoker Tobacco Type: Cigarettes Second Hand Exposure: No; Do You Dip or Chew Tobacco: No; Tobacco Cessation Education Requested by Patient: No Hx Alcohol Use: No Hx Substance Use: No Preferred Language: Upper Sorbian Communication Ability: Effective Visual Impairment: Limited Hearing Ability: Normal Bridge Game Director Required: No Beliefs That Will Affect Care: None marital status: / Current Living Situation: Family Current Living Situation Comment: "daughter lives next door" current occupational status: retired Other Information That Helps Us Care for You: No Feels Safe at Home: Yes Safety Concerns: Feels Safe At This Time Diet: low salt caffeine: Yes (1 coffee daily) Physical Activity Frequency: Does not Exercise Do you think of yourself as: straight/heterosexual Gender Identity: Male Assistive Devices: Cane and Walker Review of Systems All systems reviewed & are unremarkable except as noted in HPI & below Physical Exam Constitutional: WD/WN, vitals as above Eyes: vision loss left eye Respiratory: normal respiratory effort; no respiratory distress Cardiovascular: RRR, no murmur, no edema Gastrointestinal (Abdomen): normal bowel sounds, soft, nontender, no hepatosplenomegaly pd catheter in place Neurologic: CN's II-XI intact bilaterally, normal sensation to monofilament and moves all extremities Psychiatric: A+Ox3, euthymic affect Results & Data Vital Signs (Past 12 Hours) Vital Signs Temp Pulse Pulse Resp BP Pulse Ox O2 Del Method 09/07/24 11:21 36.5 C 67 16 155/72 H 95 Room Air 09/07/24 08:00 61 09/07/24 07:37 36.6 C 63 18 151/82 H 95 Room Air 09/07/24 02:35 36.7 C 67 18 167/73 H 91 Room Air Code Status & VTE Plan VTE Prophylaxis Plan VTE Prophylaxis will be ordered: Yes
[2024-09-07] MEDS: CLOPIDOGREL BISULFATE 75 MG TAB PO ONE (15:41)
[2024-09-07] MEDS: WARFARIN SOD 3 MG TAB PO SCH (15:41)
--- NOTE | 2024-09-07 16:18 | Hospitalist Progress Note ---
Date of Service September 07, 2024 Assessment & Plan (1) Vision loss, left eye: Plan: Has been having left eye visual loss since Tuesday last Was evaluated by bow rehairer as an outpatient and recorded to have central retinal artery occlusion The patient was advised to come to the emergency room to rule out stroke No significant improvement of the visual loss as of today He has no significant binocular vision (2) Stroke-like symptom: Plan: - Admit to PCU for observation - Noted central retinal artery occlusion left eye associated with vision loss. - We will obtain an echo, bilat carotid Doppler, MRI with/wo brain - Pt already on Coumadin and aspirin. Will transition over to Plavix instead of aspirin for antiplatelet. - CT head reviewed and is negative - Will allow permissive hypertension with SBP 140-170, hold antihypertensives today ( hctz, amlodipine, reduce coreg to 6.25 mg BID) - MRI of the brain showed cerebral atrophy and mild chronic small vessel disease otherwise unremarkable CTA of the head and neck showed severe atherosclerosis of the carotid bulbs and proximal internal carotid arteries causing high-grade stenosis at the origins of the bilateral internal and external carotid arteries - Neurology consulted- appreciate input and recommendation - appreciate vascular surgery input and recommendation Started on Plavix and possible procedure as an outpatient in 1 to 2 weeks by the vascular (3) Stage 5 chronic kidney disease due to type 2 diabetes mellitus: Plan: Has been getting peritoneal dialysis Appreciate nephrology input and recommendation (4) Peritoneal dialysis catheter in place: Plan: - Consult nephrology for PD - Cr. 6.96, BUN 83, at home pt does overnight cycles - Continue sevelamer hcl 800 mg TID (5) Diabetes mellitus with neuropathy: Plan: -Check A1c with a.m. labs -ISS Accu-Cheks ACHS (6) HTN (hypertension): Plan: -Holding antihypertensives including amlodipine, HCTZ, reducing Coreg today (7) Hyperlipidemia: Plan: -Check lipid panel with a.m. labs (8) Hx pulmonary embolism: Plan: -Occurred in 2007 -Anticoagulated on Coumadin, INR is 2.4 today, trend with a.m. labs -See antiplatelet plus anticoagulation as above DVT ppx: teds, scds Lines: PIV x 2 FEN/GI: Once passes dysphagia screening can allow renal diet CODE: Dispo: From home, likely to remain in the hospital x 1-2 days Admission and Anticipated Discharge Date Admission Date: September 06, 2024 Subjective 09/07/2024 The patient was seen and examined in telemetry unit He has been complaining of left eye partial vision loss since last Erwin Was seen by the bow rehairer and noted to have left central retinal artery occlusion His symptoms did not get better and was admitted to telemetry unit for further workup and neuroevaluation Review of Systems Review of Systems: All systems reviewed and are unremarkable except as noted below Physical Exam Physical Exam: Sitting on a chair without any acute distress Constitutional: well developed, well nourished and + ill appearing Eyes: PERRL, conjunctivae normal, anicteric sclerae ENMT: external ear and nose normal, oropharynx normal Neck: trachea midline, no thyromegaly Respiratory: no respiratory distress Auscultation: lungs clear to auscultation bilaterally Cardiovascular: Rate/Rhythm: regular rate and regular rhythm; not tachycardic Heart Sounds: normal S1 and normal S2; no murmur Extremities: + edema ( trace edema bilaterally) Gastrointestinal (Abdomen): Inspection/Auscultation: + abdomen distended and normal bowel sounds Percussion/Palpation: + abdomen tender ( mildly tender) and abdomen soft Musculoskeletal: no acute arthritis involving any of the joint Neurologic: normal touch/pain/proprioception and moves all extremities; no focal motor deficits has partial visual loss left eye specially on the left lateral field Lymphatic: no cervical or axillary lymphadenopathy Results & Data Results & Data Vital Signs (Past 12 Hours) Vital Signs Temp Pulse Pulse Resp BP Pulse Ox O2 Del Method 09/07/24 15:33 36.7 C 73 20 153/70 H 91 Room Air 09/07/24 14:17 67 09/07/24 11:21 36.5 C 67 16 155/72 H 95 Room Air 09/07/24 08:00 61 09/07/24 07:37 36.6 C 63 18 151/82 H 95 Room Air Laboratory Results Short CBC 09/07/24 Range/Units 07:20 WBC 7.91 (4.8-10.8) K/ul Hgb 10.2 L (14.0-18.0) g/dl Hct 29.7 L (42.0-52.0) % Plt Count 154 (130-400) K/uL BMP 09/07/24 07:20 Sodium 138 Potassium 3.4 L Chloride 98 Carbon Dioxide 26 BUN 89 H Creatinine 7.05 H* Glucose 166 H Calcium 8.6 Medications Administered Current Inpatient Medications Acetaminophen (Acetaminophen 325 Mg Tab) 650 mg PO Q4H PRN PRN Reason: Moderate Pain (Scale 4, 5, 6) Stop: 10/06/24 16:16 Aspirin (Aspirin 81 Mg Ectab) 81 mg PO PM [facility] Stop: 10/06/24 20:59 Last Admin: 09/06/24 20:45 Dose: 81 mg Atorvastatin Calcium (Atorvastatin 40 Mg Tab) 40 mg PO QAM [facility] Stop: 10/06/24 16:59 Last Admin: 09/07/24 08:48 Dose: 40 mg Bumetanide (Bumetanide 1 Mg Tab) 4 mg PO BID [facility] Stop: 10/06/24 20:59 Last Admin: 09/07/24 08:48 Dose: 4 mg Carvedilol (Carvedilol 6.25 Mg Tab) 6.25 mg PO BID [facility] Stop: 10/06/24 20:59 Last Admin: 09/07/24 08:49 Dose: 6.25 mg Clopidogrel Bisulfate (Clopidogrel Bisulfate 75 Mg Tab) 75 mg PO QAM [facility] Stop: 10/08/24 08:59 Dextrose (Dextrose 50% 50 Ml Syringe) 25 - 50 ml IV UD PRN; Protocol PRN Reason: Hypoglycemia Protocol Stop: 10/06/24 16:16 Fenofibrate (Fenofibrate Nanocrystallized 48 Mg Tablet) 48 mg PO QAM [facility] Stop: 10/07/24 08:59 Last Admin: 09/07/24 08:49 Dose: 48 mg Finasteride (Finasteride 5 Mg Tab) 5 mg PO QAM [facility] Stop: 10/07/24 08:59 Last Admin: 09/07/24 08:49 Dose: 5 mg Gabapentin (Gabapentin 100 Mg Cap) 100 mg PO TID [facility] Stop: 10/06/24 20:59 Last Admin: 09/07/24 14:01 Dose: 100 mg Glucagon (Glucagon For Inj 1 Mg Vial) 1 mg SQ UD PRN; Protocol PRN Reason: Hypoglycemia Protocol Stop: 10/06/24 16:16 Glucose (Glucose 40% Gel 15 Gm Tube) 15 - 30 gm PO UD PRN; Protocol PRN Reason: Hypoglycemia Protocol Stop: 10/06/24 16:16 Glucose (Glucose 10 Tab/Tube) 4 - 8 tab PO UD PRN; Protocol PRN Reason: Hypoglycemia Protocol Stop: 10/06/24 16:16 Insulin Aspart (Insulin Aspart Per Unit Charge) 0 units SC ACHS JAKOB Stop: 10/06/24 16:29 Last Admin: 09/07/24 12:15 Dose: 9 units Insulin Glargine (Lantus Per Unit Charge) 12 units SQ HS [facility]KA[facility] Stop: 10/06/24 20:59 Last Admin: 09/06/24 21:54 Dose: 12 units Isosorbide Mononitrate (Isosorbide [place] Extended Rel 60 Mg Tabcr) 60 mg PO QAM [facility]AK[facility] Stop: 10/07/24 08:59 Last Admin: 09/07/24 08:49 Dose: 60 mg Miscellaneous (Carbohydrates For Hypoglycemia ) 15 - 30 gm PO UD PRN PRN Reason: Hypoglycemia Protocol Stop: 10/06/24 16:16 Multivitamins (Multivitamin Tab) 1 tab PO PM [facility]AKOB Stop: 10/06/24 20:59 Last Admin: 09/06/24 20:45 Dose: Not Given Ondansetron HCl (Ondansetron Inj 2 Mg/Ml 2 Ml Vial) 4 mg IV Q4H PRN PRN Reason: Nausea And Vomiting Stop: 10/06/24 16:16 Polyethylene Glycol (Polyethylene (Miralax) 17 Gm Pack) 17 gm PO DAILY JAKOB Stop: 10/07/24 08:59 Last Admin: 09/07/24 08:54 Dose: 17 gm Sertraline HCl (Sertraline Hcl 100 Mg Tablet) 100 mg PO PM [facility]AK[facility] Stop: 10/06/24 20:59 Last Admin: 09/06/24 20:45 Dose: 100 mg Sertraline HCl (Sertraline Hcl 50 Mg Tablet) 50 mg PO PM [facility] Stop: 10/06/24 20:59 Last Admin: 09/06/24 20:45 Dose: 50 mg Sevelamer Carbonate (Sevelamer Carbonate 800 Mg Tab) 800 mg PO TID [facility] Stop: 10/06/24 20:59 Last Admin: 09/07/24 12:15 Dose: 800 mg Sodium Bicarbonate (Sodium Bicarbonate 650 Mg Tab) 650 mg PO BID [facility] Stop: 10/06/24 20:59 Last Admin: 09/07/24 08:48 Dose: 650 mg Tamsulosin HCl (Tamsulosin Hcl 0.4 Mg Cap) 0.4 mg PO DAILY [facility]AK[facility] Stop: 10/07/24 08:59 Last Admin: 09/07/24 08:48 Dose: 0.4 mg Warfarin Sodium (Warfarin Sod 3 Mg Tab) 3 mg PO [email or web address] [facility] Stop: 10/07/24 15:59 Last Admin: 09/07/24 15:41 Dose: 3 mg Warfarin Sodium (Warfarin Sod 0.5 Mg Tab) 0.5 mg PO [email or web address] [facility] Stop: 10/06/24 17:14 Last Admin: 09/06/24 21:53 Dose: 0.5 mg Warfarin Sodium (Warfarin Sod 1 Mg Tab) 1 mg PO [email or web address] [facility] Stop: 10/06/24 17:14 Last Admin: 09/06/24 21:53 Dose: 1 mg (6) HTN (hypertension) Hypertension type: unspecified Qualified Code(s): I10 - Essential (primary) hypertension
[2024-09-07] MEDS: LABETALOL HCL IV 5 MG/ML 20ML IV STA (20:19)
[2024-09-08 07:10] LABS: BUN Creatinine Ratio 13.2 (10-20); Calcium 8.9 mg/dl (8.6-10.3); Creatinine Clr Calc Pharmacy 11.2 ml/min; Potassium 3.3 mmol/L (3.5-5.1)
[2024-09-08 07:11] LABS: INR 3.2 (0.9-1.1); Prothrombin Time 31.5 Seconds (9.0-12.0)
[2024-09-08 08:04] VITALS: RESP 18
[2024-09-08] MEDS: CLOPIDOGREL BISULFATE 75 MG TAB PO SCH (09:23)
--- NOTE | 2024-09-08 11:48 | Nephrology Progress Note ---
Date of Service September 08, 2024 Assessment & Plan (1) End-stage renal disease needing dialysis: Plan: * Euvolemic. Electrolyte balance is acceptable * Resume outpatient NCCPD orders at discharge - no change to Rx * Continue home medications as Rx, including NaHCO3, sevelamer, and bumex * Renal diet * I discussed discharge plans with Dr. Henderson this AM (2) Vision loss, left eye: Plan: * Ophthalmology evaluation today concerning for central retinal artery occlusion * Head CT negative for CVA * Brain MRI without significant abnormality * Carotid doppler show bilateral ICA stenosis * TTE did not demonstrate shunt/PFO * On warfarin w/ therapeutic INR, ASA * Follow up with vascular as outpatient scheduled (3) Diabetes mellitus with neuropathy: Admission and Anticipated Discharge Date Admission Date: September 06, 2024 Subjective No acute events overnight. NCCP completed without complications. Effluent clearn. Volume status controlled. No complaints this AM. Review of Systems Review of Systems: All systems reviewed & are unremarkable except as noted in HPI & below Physical Exam Constitutional: not in distress Eyes: PERRL, conjunctivae normal, anicteric sclerae ENMT: external ear and nose normal, oropharynx normal Neck: trachea midline, no thyromegaly Respiratory: normal respiratory effort, lungs clear to auscultation Cardiovascular: RRR, no murmur, no edema Extremities: + AV fistula (+ bruit) Gastrointestinal (Abdomen): PD catheter with clear exit sit Musculoskeletal: Extremities: no cyanosis and no clubbing Skin: no rashes, warm and dry Neurologic: awake; not confused Results & Data Vital Signs (Past 12 Hours) Vital Signs Temp Pulse Pulse Resp BP Pulse Ox O2 Del Method 09/08/24 08:03 36.6 C 63 18 09/08/24 08:03 36.6 C 63 18 176/76 H 94 Room Air 09/08/24 07:21 70 09/07/24 23:51 36.7 C 69 17 151/74 H 94 Room Air Laboratory Results Laboratory Results - last 24 hr 09/07/24 09/07/24 09/08/24 16:29 20:23 06:16 PT 31.5 H INR 3.2 H Sodium 137 Potassium 3.3 L Chloride 98 Carbon Dioxide 28 Anion Gap 11 BUN 91 H Creatinine 6.91 H* Est Cr Clr Drug Dosing 11.2 eGFR 7.96 BUN/Creatinine Ratio 13.2 Glucose 95 POC Glucose 173 H 193 H Calcium 8.9 09/08/24 09/08/24 07:35 11:26 PT INR Sodium Potassium Chloride Carbon Dioxide Anion Gap BUN Creatinine Est Cr Clr Drug Dosing eGFR BUN/Creatinine Ratio Glucose POC Glucose 98 98 Calcium PG Care Time/CCT Total # of Minutes Spent Total Time Spent with Patient: Total time spent is greater than 50% in coordination of care (as documented) at patient's floor/unit and/or counseling patient: Coding Level of Care Code 07382 SUB INP/OBS CARE 3/50MIN Diagnoses End-stage renal disease needing dialysis N18.6; Z99.2 Vision loss, left eye H54.62 Diabetes mellitus with neuropathy E11.40
[2024-09-08 12:08] VITALS: BP 152/81; PULSE 64; TEMP 98.2; O2SAT 93
--- NOTE | 2024-09-08 12:25 | Hospitalist Progress Note ---
Date of Service September 08, 2024 Assessment & Plan (1) Vision loss, left eye: Plan: Has been having left eye visual loss since Tuesday last Was evaluated by physical therapist assistant as an outpatient and recorded to have central retinal artery occlusion The patient was advised to come to the emergency room to rule out stroke No significant improvement of the visual loss as of today He has no significant binocular vision Visual loss in the left eye persist and has not been worsened Denies any other neurological symptoms (2) Stroke-like symptom: Plan: - Admit to PCU for observation - Noted central retinal artery occlusion left eye associated with vision loss. - We will obtain an echo, bilat carotid Doppler, MRI with/wo brain - Pt already on Coumadin and aspirin. Will transition over to Plavix instead of aspirin for antiplatelet. - CT head reviewed and is negative - Will allow permissive hypertension with SBP 140-170, hold antihypertensives today ( hctz, amlodipine, reduce coreg to 6.25 mg BID) - MRI of the brain showed cerebral atrophy and mild chronic small vessel disease otherwise unremarkable CTA of the head and neck showed severe atherosclerosis of the carotid bulbs and proximal internal carotid arteries causing high-grade stenosis at the origins of the bilateral internal and external carotid arteries - Neurology consulted- appreciate input and recommendation - appreciate vascular surgery input and recommendation Started on Plavix and possible procedure as an outpatient in 1 to 2 weeks by the vascular -Vascular surgery will give him a call for the proposed procedure next week or so (3) Stage 5 chronic kidney disease due to type 2 diabetes mellitus: Plan: Has been getting peritoneal dialysis Appreciate nephrology input and recommendation Discussed with the metallic yarn slitting machine operator and the patient can go home and have his usual peritoneal dialysis as an outpatient (4) Peritoneal dialysis catheter in place: Plan: - Consult nephrology for PD - Cr. 6.96, BUN 83, at home pt does overnight cycles - Continue sevelamer hcl 800 mg TID (5) Diabetes mellitus with neuropathy: Plan: -Check A1c with a.m. labs- 7.5 on 08/30/2024 -ISS Accu-Cheks ACHS (6) HTN (hypertension): Plan: -Holding antihypertensives including amlodipine, HCTZ, reducing Coreg today (7) Hyperlipidemia: Plan: -Check lipid panel with a.m. labs (8) Hx pulmonary embolism: Plan: -Occurred in 2007 -Anticoagulated on Coumadin, INR is 2.4 today, trend with a.m. labs -See antiplatelet plus anticoagulation as above DVT ppx: teds, scds Lines: PIV x 2 FEN/GI: Once passes dysphagia screening can allow renal diet CODE: Dispo: From home, likely to remain in the hospital x 1-2 days He will be discharged home this afternoon Admission and Anticipated Discharge Date Admission Date: September 06, 2024 Subjective 09/07/2024 The patient was seen and examined in telemetry unit He has been complaining of left eye partial vision loss since last Tuesday Was seen by the physical therapist assistant and noted to have left central retinal artery occlusion His symptoms did not get better and was admitted to telemetry unit for further workup and neuroevaluation 09/08/2024 The patient was seen and examined in telemetry unit He has been feeling much better but he still has visual loss on the left eye Does not have any other neurological symptoms Has had physical therapy and did very well He will be discharged home this afternoon Review of Systems Review of Systems: All systems reviewed and are unremarkable except as noted below Physical Exam Physical Exam: Sitting on a chair without any acute distress Constitutional: well developed, well nourished and + ill appearing Eyes: PERRL, conjunctivae normal, anicteric sclerae ENMT: external ear and nose normal, oropharynx normal Neck: trachea midline, no thyromegaly Respiratory: no respiratory distress Auscultation: lungs clear to auscultation bilaterally Cardiovascular: Rate/Rhythm: regular rate and regular rhythm; not tachycardic Heart Sounds: normal S1 and normal S2; no murmur Extremities: + edema ( trace edema bilaterally) Gastrointestinal (Abdomen): Inspection/Auscultation: + abdomen distended and normal bowel sounds Percussion/Palpation: + abdomen tender ( mildly tender) and abdomen soft Neurologic: normal touch/pain/proprioception and moves all extremities; no focal motor deficits Lymphatic: no cervical or axillary lymphadenopathy Results & Data Results & Data Vital Signs (Past 12 Hours) Vital Signs Temp Pulse Pulse Resp BP Pulse Ox O2 Del Method 09/08/24 12:07 36.8 C 64 18 152/81 H 93 Room Air 09/08/24 08:03 36.6 C 63 18 09/08/24 08:03 36.6 C 63 18 176/76 H 94 Room Air 09/08/24 07:21 70 Laboratory Results [facility] 09/08/24 06:16 Sodium 137 Potassium 3.3 L Chloride 98 Carbon Dioxide 28 BUN 91 H Creatinine 6.91 H* Glucose 95 Calcium 8.9 Diagnostic Findings Laboratory Results WBC 7.91 K/ul (4.8-10.8) 09/07/24 07:20 RBC 3.36 M/uL (4.70-6.10) L 09/07/24 07:20 Hgb 10.2 g/dl (14.0-18.0) L 09/07/24 07:20 Hct 29.7 % (42.0-52.0) L 09/07/24 07:20 MCV 88.4 fL (80.0-100.0) 09/07/24 07:20 MCH 30.4 pg (25.0-34.0) 09/07/24 07:20 MCHC 34.3 g/dL (32.0-36.0) 09/07/24 07:20 RDW Std Deviation 43.3 fL (36.4-46.3) 09/07/24 07:20 RDW Coeff of Severiano 13.4 % (11.5-14.5) 09/07/24 07:20 Plt Count 154 K/uL (130-400) 09/07/24 07:20 MPV 10.6 fL (9.4-12.4) 09/07/24 07:20 Immature Gran % (Auto) 0.2 % 09/06/24 12:43 Neut % (Auto) 71.4 % 09/06/24 12:43 Lymph % (Auto) 19.2 % 09/06/24 12:43 Lucas % (Auto) 7.2 % 09/06/24 12:43 Eos % (Auto) 1.4 % 09/06/24 12:43 Baso % (Auto) 0.6 % 09/06/24 12:43 Neut # (Auto) 6.09 K/uL (1.40-6.50) 09/06/24 12:43 Lymph # (Auto) 1.64 K/uL (1.20-3.40) 09/06/24 12:43 Lucas # (Auto) 0.61 K/uL (0.11-0.59) H 09/06/24 12:43 Eos # (Auto) 0.12 K/uL (0.00-0.50) 09/06/24 12:43 Baso # (Auto) 0.05 K/uL (0.00-0.20) 09/06/24 12:43 Immature Gran # (Auto) 0.02 K/uL (0.01-0.20) 09/06/24 12:43 PT 31.5 Seconds (9.0-12.0) H 09/08/24 06:16 INR 3.2 (0.9-1.1) H 09/08/24 06:16 APTT 45 Seconds (21-31) H 09/06/24 12:43 PTT Ratio 1.7 09/06/24 12:43 Sodium 137 mmol/L (136-145) 09/08/24 06:16 Potassium 3.3 mmol/L (3.5-5.1) L 09/08/24 06:16 Chloride 98 mmol/L (98-107) 09/08/24 06:16 Carbon Dioxide 28 mmol/L (21-32) 09/08/24 06:16 Anion Gap 11 (3-11) 09/08/24 06:16 BUN 91 mg/dl (6-23) H 09/08/24 06:16 Creatinine 6.91 mg/dl (0.6-1.4) H* 09/08/24 06:16 Est Cr Clr Drug Dosing 11.2 ml/min 09/08/24 06:16 eGFR 7.96 09/08/24 06:16 BUN/Creatinine Ratio 13.2 (10-20) 09/08/24 06:16 Glucose 95 mg/dl (70-99(Fasting)) 09/08/24 06:16 POC Glucose 98 mg/dl (70-99) 09/08/24 11:26 Estimat Average Glucose 169 mg/dl 09/07/24 07:20 Hemoglobin A1c 7.5 % (4.5-5.6) H 09/07/24 07:20 Calcium 8.9 mg/dl (8.6-10.3) 09/08/24 06:16 Magnesium 1.9 mg/dl (1.7-2.4) 09/06/24 12:43 Total Bilirubin 0.4 mg/dl (0.2-1.0) 09/06/24 12:43 AST 19 U/L (13-39) 09/06/24 12:43 ALT 10 U/L (7-52) 09/06/24 12:43 Alkaline Phosphatase 41 U/L (34-104) 09/06/24 12:43 Troponin I High Sens 176.6 pg/ml (0-20) H* 09/07/24 01:23 Total Protein 6.6 gm/dl (6.0-8.3) 09/06/24 12:43 Albumin 3.6 gm/dl (3.4-5.0) 09/06/24 12:43 Globulin 3.0 gm/dl (2.5-4.0) 09/06/24 12:43 Albumin/Globulin Ratio 1.2 (0.9-2) 09/06/24 12:43 Triglycerides 245 mg/dl (0-150) H 09/07/24 07:20 Cholesterol 146 mg/dl (0-200) 09/07/24 07:20 LDL Cholesterol, Calc 62 mg/dl 09/07/24 07:20 VLDL Cholesterol, Calc 49 mg/dl (0-30) H 09/07/24 07:20 HDL Cholesterol 35 mg/dl 09/07/24 07:20 Cholesterol/HDL Ratio 4.2 (0-5) 09/07/24 07:20 Impressions Chest X-Ray 09/06/24 12:31 XR chest 1V portable CLINICAL HISTORY: neuro deficit, acute stroke suspected COMPARISON STUDY: 08/28/2024 FINDINGS: Stable mild cardiomegaly without pulmonary vascular congestion. No effusion, consolidation, or pneumothorax. Stable old healed left rib fractures. IMPRESSION: No acute findings. ACT 112: Negative or not required by law. Electronically signed by: Daryn Urbina M.D. 09/06/2024 1:[address] 09/06/24 12:31 CT head/brain wo con CLINICAL HISTORY: neuro deficit, acute stroke suspected. TECHNIQUE: Multiple axial CT images of the head were obtained without contrast. A dose lowering technique was utilized adhering to the principles of ALARA. CT DOSE: 625.8 mGy.cm COMPARISON: 09/21/2023 FINDINGS: No intracranial hemorrhage seen. No mass effect, midline shift, or hydrocephalus. Stable small area of hypodensity just lateral to the right basal ganglia, likely old infarction. No skull fracture seen. Visualized paranasal sinuses and mastoid air cells are clear. IMPRESSION: No acute findings. ACT 112: Negative or not required by law. The above report was generated using voice recognition software. It may contain grammatical, syntax or spelling errors. Electronically signed by: Daryn Urbina M.D. 09/06/2024 1:12 PM Brain MRI 09/06/24 16:17 Clinical History: Loss of vision in left eye Technique: Multiple T1 and T2-weighted magnetic resonance images were obtained of the brain without gadolinium contrast Findings: There is no sign of acute or old infarction with normal-appearing diffusion weighted images. There is cerebral atrophy, within expected limits for the patient's age. There are small areas of increased T2 signal intensity within the periventricular white matter of the cerebral hemispheres bilaterally. This is most likely due to chronic small vessel ischemic disease. No definite mass lesion is seen on this noncontrast study. There is no intracranial hemorrhage or other fluid collection. No midline shift or other form of herniation is seen. There is no hydrocephalus. Normal flow-voids are seen within the arteries of the [id number]. The orbits and paranasal sinuses appear normal. The mastoid air cells appear clear. Impression: 1. Cerebral atrophy and mild chronic small vessel ischemic disease 2. Otherwise unremarkable noncontrast MRI of the brain Electronically signed by Romeo Duval 09-06-2024 7:43 PM Carotid Doppler Study 09/06/24 16:17 EXAM: US carotid doppler BI CLINICAL HISTORY: stroke-like sx TECHNIQUE: The carotid arteries were examined using duplex ultrasound in real time. One or more of the following were performed: spectral analysis, resistive index, waveform analysis, and pulsed Doppler. COMPARISON: None. FINDINGS: The exam was limited by shadowing from plaques seen in the right proximal ECA, right mid ICA, left proximal ECA, and left mid ICA. Doppler Profile: Vessel Right (PSV/EDV cm/sec) Left (PSV/EDV cm/sec) Common Carotid Artery (CCA) proximal: 109.6/15 Distal: 83.8/18.1 69.5/11.6 63.3/10.8 Bulb 86.4/16.1 51.5/8.7 Internal Carotid Artery (ICA) - Proximal 78.3/10.8-173.9/35 205/39 Internal Carotid Artery (ICA) - Distal 151/38 29.5/6.3 External Carotid Artery (ECA) 153-351 353- Vertebral Artery (VA) 46/7.7 49.2/18.6 Right ICA/CCA Ratio 4.4/4.7 Left ICA/CCA Ratio 4.6/9.1 Plaque Characterization: Multiple calcified atherosclerotic plaques, seen at both CCA, ECA, and ICA, more severe at right proximal ECA, right mid ICA, left proximal ECA, left mid ICA, with shadowing effect. Stenosis Evaluation: No significant stenosis in the internal carotid artery bilaterally. ICA/CCA ratios are elevated, exceeding the normal limits (less than 2.0). Vertebral Arteries: Antegrade flow noted in the vertebral arteries bilaterally. IMPRESSION: 1. Multiple calcified atherosclerotic plaques, seen at both CCA, ECA, and ICA, more severe at right proximal ECA, right mid ICA, left proximal ECA, left mid ICA, with a shadowing effect. 2. ICA/CCA ratios are elevated. 3. Elevated PSV of both internal and external carotid arteries, with moderate stenosis values of ICAs, and severe stenosis values of ECAs. Recommendations: Clinical correlation with symptoms and further evaluation as indicated. Routine follow-up or additional imaging may be recommended based on clinical presentation or if significant plaque is identified. NASCET Criteria for carotid stenosis: Degree of Stenosis Measurement Criteria (Angiography) Peak Systolic Velocity (PSV) End Diastolic Velocity (EDV) PSV Ratio ICA/CCA Clinical Indications for Surgery Normal No narrowing 125 cm/s 40 cm/s 2.0 Not indicated for surgery Mild Stenosis 50% narrowing of the carotid artery 125 cm/s 40 cm/s 2.0 Generally, not indicated for surgery Moderate Stenosis 50% to 69% narrowing of the carotid artery 125 - 230 cm/s 40 - 100 cm/s 2.0 - 4.0 May be considered for surgery based on individual factors Severe Stenosis 70% to 99% narrowing of the carotid artery 230 cm/s 100 cm/s 4.0 Recommended for surgery in symptomatic patients Total Occlusion 100% blockage of the carotid artery No flow detected No flow detected Not applicable Surgery is not typically performed due to complete blockage Electronically signed by Torsten Castro 09-07-2024 04:06 AM Neck CTA 09/07/24 11:38 CT angio neck wo/w con CLINICAL HISTORY: 69 years-old Male with carotid stenosis. COMPARISON STUDY: Brain MRI and head CT studies 09/06/2024, carotid ultrasound 09/07/2024 TECHNIQUE: Following the IV administration of 118 mL of Optiray, CT angiogram of the neck was performed from the aortic arch to the skull base. Images are reviewed in the axial, sagittal, and coronal planes. 3-D MIPS images are created and assessed. IV contrast was administered without complication. All measurements were calculated based on NASCET criteria. A dose lowering technique was utilized adhering to the principles of ALARA. CT DOSE: 852.25 mGy.cm FINDINGS: Four-vessel morphology of the thoracic aortic arch which demonstrates moderate atherosclerosis. Patency of the innominate and image subclavian arteries. The common carotid arteries are patent with moderate atherosclerosis. There is high- grade stenosis of at least 80% involving the proximal cervical segment right ICA secondary to severe plaque. Additionally, there is high-grade stenosis at the origin of the right external carotid artery. There is high-grade stenosis of greater than 80% involving the origin of the left ICA secondary to severe calcified plaque with high-grade stenosis also noted at the origin of the left external carotid artery. The remaining internal carotid arteries are patent. Moderate stenosis at the origin of the dominant left vertebral artery. Atherosclerotic plaque of the V4 segment left vertebral artery causes a short segment high-grade stenosis. Developmentally diminutive right vertebral artery is patent without high-grade stenosis. Patent basilar artery. Unremarkable soft tissues. Borderline enlarged right paratracheal lymph node. No pneumothorax. Degenerative changes of the spine without acute fracture. The imaged intracranial structures are unremarkable with chronic microvascular ischemic disease. IMPRESSION: 1. Severe atherosclerosis of the carotid bulbs and proximal internal carotid arteries causing high-grade stenosis at the origins of the bilateral internal and external carotid arteries. 2. Dominant left vertebral artery with stenosis at its origin and also within the V4 segment. ACT 112: Negative or not required by law. The above report was generated using voice recognition software. It may contain grammatical, syntax or spelling errors. Electronically signed by: Alan Chaudhary M.D. 09/07/2024 1:25 PM Medications Administered Current Inpatient Medications Acetaminophen (Acetaminophen 325 Mg Tab) 650 mg PO Q4H PRN PRN Reason: Moderate Pain (Scale 4, 5, 6) Stop: 10/06/24 16:16 Aspirin (Aspirin 81 Mg Ectab) 81 mg PO PM JAKOB Stop: 10/06/24 20:59 Last Admin: 09/07/24 20:25 Dose: 81 mg Atorvastatin Calcium (Atorvastatin 40 Mg Tab) 40 mg PO QAM [facility] Stop: 10/06/24 16:59 Last Admin: 09/08/24 09:22 Dose: 40 mg Bumetanide (Bumetanide 1 Mg Tab) 4 mg PO BID [facility] Stop: 10/06/24 20:59 Last Admin: 09/08/24 09:22 Dose: 4 mg Carvedilol (Carvedilol 6.25 Mg Tab) 6.25 mg PO BID [facility] Stop: 10/06/24 20:59 Last Admin: 09/08/24 09:23 Dose: 6.25 mg Clopidogrel Bisulfate (Clopidogrel Bisulfate 75 Mg Tab) 75 mg PO QAM [facility] Stop: 10/08/24 08:59 Last Admin: 09/08/24 09:23 Dose: 75 mg Dextrose (Dextrose 50% 50 Ml Syringe) 25 - 50 ml IV UD PRN; Protocol PRN Reason: Hypoglycemia Protocol Stop: 10/06/24 16:16 Fenofibrate (Fenofibrate Nanocrystallized 48 Mg Tablet) [address] [facility] Stop: 10/07/24 08:59 Last Admin: 09/08/24 09:23 Dose: 48 mg Finasteride (Finasteride 5 Mg Tab) 5 mg PO QAM [facility] Stop: 10/07/24 08:59 Last Admin: 09/08/24 09:23 Dose: 5 mg Gabapentin (Gabapentin 100 Mg Cap) 100 mg PO TID [facility] Stop: 10/06/24 20:59 Last Admin: 09/08/24 09:23 Dose: 100 mg Glucagon (Glucagon For Inj 1 Mg Vial) 1 mg SQ UD PRN; Protocol PRN Reason: Hypoglycemia Protocol Stop: 10/06/24 16:16 Glucose (Glucose 40% Gel 15 Gm Tube) 15 - 30 gm PO UD PRN; Protocol PRN Reason: Hypoglycemia Protocol Stop: 10/06/24 16:16 Glucose (Glucose 10 Tab/Tube) 4 - 8 tab PO UD PRN; Protocol PRN Reason: Hypoglycemia Protocol Stop: 10/06/24 16:16 Insulin Aspart (Insulin Aspart Per Unit Charge) 0 units SC ACHS [facility] Stop: 10/06/24 16:29 Last Admin: 09/08/24 12:30 Dose: 7 units Insulin Glargine (Lantus Per Unit Charge) 12 units SQ HS JAKOB Stop: 10/06/24 20:59 Last Admin: 09/07/24 20:36 Dose: 12 units Isosorbide Mononitrate (Isosorbide Lucas Extended Rel 60 Mg Tabcr) 60 mg PO QAM JAKOB Stop: 10/07/24 08:59 Last Admin: 09/08/24 09:23 Dose: 60 mg Miscellaneous (Carbohydrates For Hypoglycemia ) 15 - 30 gm PO UD PRN PRN Reason: Hypoglycemia Protocol Stop: 10/06/24 16:16 Multivitamins (Multivitamin Tab) 1 tab PO PM JAKOB Stop: 10/06/24 20:59 Last Admin: 09/07/24 20:24 Dose: 1 tab Ondansetron HCl (Ondansetron Inj 2 Mg/Ml 2 Ml Vial) 4 mg IV Q4H PRN PRN Reason: Nausea And Vomiting Stop: 10/06/24 16:16 Polyethylene Glycol (Polyethylene (Miralax) 17 Gm Pack) 17 gm PO DAILY JAKOB Stop: 10/07/24 08:59 Last Admin: 09/08/24 09:29 Dose: 17 gm Sertraline HCl (Sertraline Hcl 100 Mg Tablet) 100 mg PO PM JAKOB Stop: 10/06/24 20:59 Last Admin: 09/07/24 20:24 Dose: 100 mg Sertraline HCl (Sertraline Hcl 50 Mg Tablet) 50 mg PO PM JAKOB Stop: 10/06/24 20:59 Last Admin: 09/07/24 20:24 Dose: 50 mg Sevelamer Carbonate (Sevelamer Carbonate 800 Mg Tab) 800 mg PO TID JAKOB Stop: 10/06/24 20:59 Last Admin: 09/08/24 09:23 Dose: 800 mg Sodium Bicarbonate (Sodium Bicarbonate 650 Mg Tab) 650 mg PO BID JAKOB Stop: 10/06/24 20:59 Last Admin: 09/08/24 09:23 Dose: 650 mg Tamsulosin HCl (Tamsulosin Hcl 0.4 Mg Cap) 0.4 mg PO DAILY JAKOB Stop: 10/07/24 08:59 Last Admin: 09/08/24 09:23 Dose: 0.4 mg Warfarin Sodium (Warfarin Sod 3 Mg Tab) 3 mg PO [email or web address] [facility] Stop: 10/07/24 15:59 Last Admin: 09/07/24 15:41 Dose: 3 mg Warfarin Sodium (Warfarin Sod 0.5 Mg Tab) 0.5 mg PO [email or web address] [facility] Stop: 10/06/24 17:14 Last Admin: 09/06/24 21:53 Dose: 0.5 mg Warfarin Sodium (Warfarin Sod 1 Mg Tab) 1 mg PO [email or web address] [facility] Stop: 10/06/24 17:14 Last Admin: 09/06/24 21:53 Dose: 1 mg (6) HTN (hypertension) Hypertension type: unspecified Qualified Code(s): I10 - Essential (primary) hypertension
--- NOTE | 2024-09-09 08:54 | Discharge Summary ---
Date of Service September 09, 2024 Admission HPI Per Admitting Provider This is a 69yo male on peritoneal dialysis. He developed visual changes over the last few weeks. 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 He denies any other focal deficits. PMHx of end-stage renal disease on peritoneal dialysis, HTN, HLD, history of PE on chronic Coumadin, DM type II, peripheral vascular disease, and CHF. Admission Exam Per Admitting Provider Constitutional: WD/WN, vitals as above Eyes: vision loss left eye Respiratory: normal respiratory effort; no respiratory distress Cardiovascular: RRR, no murmur, no edema Gastrointestinal (Abdomen): normal bowel sounds, soft, nontender, no hepatosplenomegaly pd catheter in place Neurologic: CN's II-XI intact bilaterally, normal sensation to monofilament and moves all extremities Psychiatric: A+Ox3, euthymic affect Principal Diagnosis Left central retinal artery occlusion with visual loss, bilateral carotid a rtery disease, end-stage renal disease on peritoneal dialysis Discharge Exam Sitting on a chair without any acute distress Constitutional well developed, well nourished and + ill appearing Eyes PERRL, conjunctivae normal, anicteric sclerae ENMT external ear and nose normal, oropharynx normal Neck trachea midline, no thyromegaly Respiratory no respiratory distress Auscultation: lungs clear to auscultation bilaterally Cardiovascular Rate/Rhythm: regular rate and regular rhythm; not tachycardic Heart Sounds: normal S1 and normal S2; no murmur Extremities: + edema ( trace edema bilaterally) Gastrointestinal (Abdomen) Inspection/Auscultation: + abdomen distended and normal bowel sounds Percussion/Palpation: + abdomen tender ( mildly tender) and abdomen soft Neurologic normal touch/pain/proprioception and moves all extremities; no focal motor deficits Lymphatic no cervical or axillary lymphadenopathy Discharge Data Allergies Allergy/AdvReac Type Severity Reaction Status Date / Time atorvastatin AdvReac Intermediate Muscle Verified 04/24/24 12:22 aches bupropion [From Wellbutrin] AdvReac Intermediate Vivid Verified 04/24/24 12:22 dreams, hallucinations Eyovfvp-ZMY-JjK Reductase AdvReac Intermediate Body aches Verified 04/24/24 12:22 Inhibitor [Oneoiis-Wcd-Ufw Reductase Inhibitor] Consultations 09/06/24 14:34 Consult Nephrology Routine Consult Neurology Routine 09/07/24 10:23 Consult Vascular Surgery Routine Ordered Studies 09/06/24 12:31 CT head/brain wo con Stat 09/06/24 16:17 MR brain wo con Routine 09/06/24 16:17 US carotid doppler BI Routine 09/07/24 11:38 CTA neck wo/w con [CT angio neck wo/w con] Routine Hospital Course (1) Vision loss, left eye: Has been having left eye visual loss since Tuesday last Was evaluated by wealth management manager as an outpatient and recorded to have central retinal artery occlusion The patient was advised to come to the emergency room to rule out stroke No significant improvement of the visual loss as of today He has no significant binocular vision Visual loss in the left eye persist and has not been worsened Denies any other neurological symptoms (2) Stroke-like symptom: - Admit to PCU for observation - Noted central retinal artery occlusion left eye associated with vision loss. - We will obtain an echo, bilat carotid Doppler, MRI with/wo brain - Pt already on Coumadin and aspirin. Will transition over to Plavix instead of aspirin for antiplatelet. - CT head reviewed and is negative - Will allow permissive hypertension with SBP 140-170, hold antihypertensives today ( hctz, amlodipine, reduce coreg to 6.25 mg BID) - MRI of the brain showed cerebral atrophy and mild chronic small vessel disease otherwise unremarkable CTA of the head and neck showed severe atherosclerosis of the carotid bulbs and proximal internal carotid arteries causing high-grade stenosis at the origins of the bilateral internal and external carotid arteries - Neurology consulted- appreciate input and recommendation - appreciate vascular surgery input and recommendation Started on Plavix and possible procedure as an outpatient in 1 to 2 weeks by the vascular -Vascular surgery will give him a call for the proposed procedure next week or so (3) Stage 5 chronic kidney disease due to type 2 diabetes mellitus: Has been getting peritoneal dialysis Appreciate nephrology input and recommendation Discussed with the hotel operations manager and the patient can go home and have his usual peritoneal dialysis as an outpatient (4) Peritoneal dialysis catheter in place: - Consult nephrology for PD - Cr. 6.96, BUN 83, at home pt does overnight cycles - Continue sevelamer hcl 800 mg TID (5) Diabetes mellitus with neuropathy: -Check A1c with a.m. labs- 7.5 on 08/30/2024 -ISS Accu-Cheks ACHS (6) HTN (hypertension): -Holding antihypertensives including amlodipine, HCTZ, reducing Coreg today (7) Hyperlipidemia: -Check lipid panel with a.m. labs (8) Hx pulmonary embolism: -Occurred in 2007 -Anticoagulated on Coumadin, INR is 2.4 today, trend with a.m. labs -See antiplatelet plus anticoagulation as above DVT ppx: teds, scds Lines: PIV x 2 FEN/GI: Once passes dysphagia screening can allow renal diet CODE: Dispo: From home, likely to remain in the hospital x 1-2 days He will be discharged home this afternoon Total Time Total Time Spent Total Time Spent (In Minutes): 35 minutes Discharge Plan Discharge Items Patient Disposition: Home - Self-Care Reason For Visit: LEFT EYE VISION LOSS, STROKE LIKE SX Discharge Diagnosis: Left central retinal artery occlusion with visual loss, bilateral carotid artery disease, end-stage renal disease on peritoneal dialysis Condition on Discharge: Fair Activity: Resume your previous activity Non-emergency contact: Primary Care Provider Call non-emergency contact if: you have any medication questions and your symptoms worsen Follow-up/Referrals: Herb Scott MD [Physician] - Asaf Younger MD [Primary Care Provider] - (Please call the office and schedule a follow up appointment within a week of being discharged. ) Diet: Carb Consistent or DM2 and Dialysis Renal Addtl Attending Provider Instructions: Please take precautions to avoid falls Take your medications as advised Continue with dialysis as before Do not use any NSAIDs like ibuprofen or naproxen etc. Take Tylenol for pain control Please keep appointments with the healthcare providers Please have regular follow-up of with the coagulation clinic to maintain your INR between 2-3 Addtl Channel Opener Provider Instructions: Stay on aspirin, plavix, and the statin non stop. My office will contact you for your plavix testing. Pending Studies at Discharge: No Stand-Alone Forms: My [facility] [place], Smoking Cessation, Medications to Prevent Stroke Medications and DC Order Prescriptions: New clopidogrel [Plavix] 75 mg tablet 75 mg PO DAILY Qty: 30 11RF Continued hydralazine 100 mg tablet 100 mg PO TID Qty: 270 3RF amlodipine [Norvasc] 5 mg tablet 5 mg PO BID Qty: 180 3RF finasteride 5 mg tablet 5 mg PO QAM Qty: 90 3RF tamsulosin 0.4 mg capsule 0.4 mg PO DAILY Qty: 90 3RF gabapentin 100 mg capsule 100 mg PO TID sertraline 100 mg tablet 100 mg PO PM rosuvastatin 20 mg tablet 20 mg PO QAM sevelamer HCl 800 mg tablet 800 mg PO TID Rx Instructions: must administer with a meal/food polyethylene glycol 3350 [Miralax] 17 gram/dose powder 17 g PO DAILY glipizide 5 mg tablet 10 mg PO QAM Rx Instructions: extended release carvedilol [Coreg] 25 mg tablet 25 mg PO BID fenofibrate micronized 43 mg capsule 43 mg PO PM sertraline 50 mg tablet 50 mg PO PM warfarin 3 mg tablet 1.5 - 3 mg PO UD Rx Instructions: take 1 tablet by mouth tuesday, tuesday, Tuesday, take 1/2 tablet all other days ergocalciferol (vitamin D2) 25,000 unit Capsule 50,000 unit PO WK vitamin A-vitamin C-vit E-min Tablet 1 tab PO PM insulin aspart U-100 [Novolog FlexPen U-100 Insulin] 100 unit/mL (3 mL) insulin pen 3 unit SUBCUT BID insulin glargine [Lantus Solostar U-100 Insulin] 100 unit/mL (3 mL) insulin pen 12 unit SUBCUT HS Retacrit 40,000 unit/mL solution 40,000 unit subcut MONTHLY bumetanide 2 mg tablet 4 mg PO BID sodium bicarbonate 650 mg tablet 650 mg PO BID aspirin 81 mg Tablet,Delayed Release (Dr/Ec) 81 mg PO PM isosorbide mononitrate 60 mg tablet extended release 24 hr 60 mg PO QAM Discharge Orders: Discharge Order (Routine); Ordered 09/08/24 Ordered By: Gab Henderson Admission Data Admit Date/Time: 09/06/24 14:34 Attending Provider: Gab Henderson Admit Provider: Radu Morris Primary Care Provider: Asaf Younger Other Providers: Cruz Alonzo; Mavis Schafer; Radu Morris; Herb Scott Other Interventions: Discharge Summary Assessment (RN) Last Done: 09/08/24 13:52
== END 2024-09-08 15:45 | disposition home or self-care (01) | DRG 124 ==
LOC: ED 12:20 → 2S 14:34 → SUATTDRO 14:34 → INTOOBSV 14:34 → 2S 16:39

== ENCOUNTER 2024-09-19 12:39 | Inpatient (IN) ==
--- NOTE | 2024-09-18 13:12 | Anesthesiology Consultation ---
Date of Service September 18, 2024 Assessment & Plan (1) Encounter for pre-operative examination: Plan - case moved to 09/19/24. Per DOS notes 09/18/24: "Patient needs brillenta due to not taking anti-plt therapy prior to procedure and will need to delay 2 hrs from dose, however INR is 3.5...Patient with elevated INR. Will give vit k and reschedule for tomorrow." - check BSG, BMP and coags STAT am DOS. - discharge summary 09/09/24 [facility]: "...Vision loss, left eye...recorded to have central retinal artery occlusion...Stroke-like symptom...severe atherosclerosis of the carotid bulbs and proximal internal carotid arteries causing high-grade stenosis at the origins of the bilateral internal and external carotid arteries...Vascular surgery will give him a call for the proposed procedure next week or so. Stage 5 chronic kidney disease due to type 2 diabetes mellitus...Peritoneal dialysis catheter in place..." - Per rn assessment on 09/18/24: No known infectious disease contacts, current infectious disease symptoms in past 10 days or COVID positive test result in the past 30 days. Chart Review Chart Review: Acceptable Risk for Surgery and Patient NOT seen in Pre Admission Testing History Surgery Operation Date: 09/19/24 14:50 Proposed Procedures p Left Transcarotid Artery Revascularization - Herb Scott MD Height/Weight Height: 5 ft 8 in Weight: 92.986 kg Allergies Allergy/AdvReac Type Severity Reaction Status Date / Time atorvastatin AdvReac Intermediate Muscle Verified 09/18/24 12:59 aches bupropion [From Wellbutrin] AdvReac Intermediate Vivid Verified 09/18/24 12:59 dreams, hallucinations Xazkkxj-DNI-TyI Reductase AdvReac Intermediate Body aches Verified 09/18/24 12:59 Inhibitor [Wikdfgj-Yas-Tix Reductase Inhibitor] Medications Home Medications Medication Instructions Recorded Confirmed Last Taken gabapentin 100 mg capsule 100 mg PO TID 03/26/20 09/18/24 09/18/24 09:30 sertraline 100 mg tablet 100 mg PO PM 05/22/21 09/18/24 09/17/24 21:30 fenofibrate micronized 43 mg 43 mg PO PM 08/06/22 09/18/24 09/16/24 capsule rosuvastatin 20 mg tablet 20 mg PO QAM 11/25/22 09/18/24 09/18/24 09:30 carvedilol 25 mg tablet (Coreg) 25 mg PO BID 12/31/22 09/18/24 09/18/24 09:00 sertraline 50 mg tablet 50 mg PO PM 09/22/23 09/18/24 09/17/24 21:00 warfarin 3 mg tablet 1.5 - 3 mg PO UD 09/22/23 09/18/24 09/15/24 20:30 1.5 mg hydralazine 100 mg tablet 100 mg PO TID #270 tabs 11/17/23 09/18/24 09/18/24 09:30 glipizide 5 mg tablet 10 mg PO QAM 01/06/24 09/18/24 09/17/24 06:30 aspirin 81 mg tablet,delayed 81 mg PO PM 02/24/24 09/18/24 09/18/24 09:00 release isosorbide mononitrate 60 mg 60 mg PO QAM 02/24/24 09/18/24 09/18/24 09:30 tablet,extended release 24 hr amlodipine 5 mg tablet (Norvasc) 5 mg PO BID #180 tabs 03/16/24 09/18/24 09/18/24 09:00 polyethylene glycol 3350 17 17 g PO Q OTHER DAY 04/23/24 09/18/24 09/16/24 gram/dose oral powder (Miralax) sevelamer HCl 800 mg tablet 800 mg PO TID 04/23/24 09/18/24 09/17/24 18:00 finasteride 5 mg tablet 5 mg PO QAM #90 tabs 07/11/24 09/18/24 09/18/24 09:30 bumetanide 2 mg tablet 4 mg PO BID 09/06/24 09/18/24 09/17/24 21:30 epoetin brenda-epbx 40,000 unit/mL 40,000 unit subcut MONTHLY 09/06/24 09/18/24 09/11/24 injection solution (Retacrit) insulin aspart U-100 100 unit/mL 3 unit subcut BID 09/06/24 09/18/24 09/17/24 18:00 (3 mL) subcutaneous pen (Novolog 5 units FlexPen U-100 Insulin aspart) insulin glargine 100 unit/mL (3 12 unit subcut HS 09/06/24 09/18/24 09/17/24 21:30 mL) subcutaneous pen (Lantus 20 units Solostar U-100 Insulin) sodium bicarbonate 650 mg tablet 650 mg PO BID 09/06/24 09/18/24 09/17/24 21:30 tamsulosin 0.4 mg capsule 0.4 mg PO QAM 09/12/24 09/18/24 09/18/24 09:30 ticagrelor 90 mg tablet (Brilinta) 90 mg PO BID #60 tabs 09/18/24 09/18/24 Unknown Past Medical History Medical History Anemia BPH (benign prostatic hyperplasia) Carotid artery disease Carotid doppler 11/17/23= 50-69% stenosis ICAs bilaterally. > 50% stenosis external carotid arteries bilaterally admit to [facility]/ stroke like symptoms- d/c 09/09/24 Central artery occlusion of retina (09/07/24) CHF (congestive heart failure) no longer follows with Dr. Marshall in [place] Depression, unspecified Diabetes mellitus NIDDM Dyslipidemia Edema RLE (chronic issue x years after nerve procedure) End stage renal disease PD every day [id number]- follows with neph dr. 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 hidalgo Presence of arteriovenous fistula for hemodialysis Left Wrist Arteriovenous Fistula Creation PVD (peripheral vascular disease) SOB (shortness of breath) on exertion Vision loss, left eye admit to [facility], carotid occlusion, stroke r/o Vitamin D deficiency Past Family History Family History Brother Cancer Father Hypertension Diabetes Heart disease Dementia Mother Diabetes Past Surgical History Surgical History History of back surgery lumbar History of esophagogastroduodenoscopy (EGD) History of surgery (04/24/24) Continuous Ambulatory Peritoneal Dialysis Catheter 03/15/24 and 04/24/24 History of tonsillectomy Hx of bilateral hip replacements Hx of cardiac catheterization Remote hx many yrs ago > no stents - [facility] Follows w/ Dr. Marshall/[place] - no longer sees Hx of colonoscopy Hx of foot surgery right, nerve surgery > caused foot drop Social History Smoking Status: Former smoker tobacco type: cigarettes Do You Dip or Chew Tobacco: No Smoking End Date: 25 years ago Hx Alcohol Use: No Hx Substance Use: No substance use type: does not use Lab Results Anesthesia Preop Results Results Anesthesia Widget: WBC 7.91 K/ul (4.8-10.8) 09/07/24 Hgb 10.2 g/dl (14.0-18.0) L 09/07/24 Hct 29.7 % (42.0-52.0) L 09/07/24 Plt 154 K/uL (130-400) 09/07/24 Na 141 mmol/L (136-145) 09/18/24 K 3.7 mmol/L (3.5-5.1) 09/18/24 Cl 98 mmol/L (98-107) 09/18/24 CO2 30 mmol/L (21-32) 09/18/24 BUN 82 mg/dl (6-23) H 09/18/24 Creat 6.38 mg/dl (0.6-1.4) H* 09/18/24 Glucose Level 158 mg/dl (70-99(Fasting)) H 09/18/24 POC Glucose 159 mg/dl (70-99) H 09/18/24 PT 34.3 Seconds (9.0-12.0) H 09/18/24 PTT 61 Seconds (21-31) H 09/18/24 INR 3.5 (0.9-1.1) H 09/18/24 HA1c 7.5 % (4.5-5.6) H 09/07/24 Blood Type A Positive 09/18/24 Antibody Screen NEGATIVE 09/18/24 Testing Electrocardiogram Date: 09/06/24 NSR, rate 76 bpm LVH with repolarization abnormality Prolonged QT No significant change vs 09/23/23 EKG Chest X-Ray Date: 09/06/24 *1 view* No acute findings. Echocardiogram Date: 09/07/24 EF 60-65% Normal LV wall motion Mild cLVH Grade I diastolic dysfunction No PFO, ASD or neutral shunt Stress Test Date: 11/10/22 EF 50% Normal myocardial perfusion imaging Normal gated wall motion, no fixed or reversible defects noted Other Testing Neck CTA 09/07/24 1. Severe atherosclerosis of the carotid bulbs and proximal internal carotid arteries causing high-grade stenosis at the origins of the bilateral internal and external carotid arteries. 2. Dominant left vertebral artery with stenosis at its origin and also within the V4 segment. Carotid doppler 09/06/24 1. Multiple calcified atherosclerotic plaques, seen at both CCA, ECA, and ICA, more severe at right proximal ECA, right mid ICA, left proximal ECA, left mid ICA, with a shadowing effect. 2. ICA/CCA ratios are elevated. 3. Elevated PSV of both internal and external carotid arteries, with moderate stenosis values of ICAs, and severe stenosis values of ECAs. Brain MRI 09/06/24 1. Cerebral atrophy and mild chronic small vessel ischemic disease 2. Otherwise unremarkable noncontrast MRI of the brain Abdomen pelvis CT 04/17/24 1. Placement of a dialysis catheter through midline lower ventral abdominal wall with its tip in the urinary bladder. Recommend clinical correlation. 2. Mild diffuse urinary bladder wall thickening with mild perivesical fat stranding. Recommend clinical and laboratory correlation. 3. Cholelithiasis without CT evidence of acute cholecystitis. Recommend further evaluation with ultrasound abdomen as clinically indicated. 4. Subcentimeter hyperdense lesion in the upper pole of the right kidney. This may reflect a hemorrhagic cyst or cyst with proteinaceous material. 5. A 2.9 x 3 cm simple right renal cortical cyst (Bosniak type I). 6. Colonic diverticulosis without evidence of diverticulitis. 7. Numerous tiny nodular airspace opacities in bilateral lower lobes. Correlate clinically as regards further evaluation and followup with CT chest. 8. Small bilateral pleural effusions, right greater than left. 9. Mild cardiomegaly. 10. Small fat-containing bilateral inguinal hernias.
--- NOTE | 2024-09-19 09:50 | History & Physical Report ---
Date of Service September 19, 2024 History of Present Illness Primary Care Provider: sAaf Younger [place] [address] History & Physical Report Signed Patient: HERB GARCIA Admit Date: 09/17/24 MR#: [id number] Att Phy: DarrenHerb arshad M.D. Acct ID: [id number] Britany Phy: Asaf Younger MD Date: 1955 Fam Phy: Age: 69 Location: [facility] Sex: M Room/Bed: Legal Sex: M cc: ~ *NOTICE TO RECEIVING DEMOCRAT/AGENCY This information is strictly Confidential and protected under [place] law. [place] law prohibits you from making any further disclosure of this information unless further disclosure is expressly permitted by the written consent of the person to whom it pertains or is authorized by law. A general authorization for the release of medical or other information is not sufficient for this purpose. Hospital accepts no responsibility if the information is made available to any other person, INCLUDING THE PATIENT. Date of Service September 17, 2024 History of Present Illness Primary Care Provider: Asaf Younger MD Date of Service September 07, 2024 Assessment & Plan (1) Carotid artery stenosis, symptomatic: Plan: Patient with significant bilateral carotid artery stenosis. Recommend intervention to both sides starting with the left symptomatic side. We discussed the risks of endarterectomy vs TCAR. He understood and agreed to go ahead with a tcar. He needs to stay on DAPT and a statin, non stop till 30 days post surgery. We will try to have it scheduled within the next two weeks. Thank you very much for letting us participate in the care of this patient. Admission and Anticipated Discharge Date Admission Date: September 06, 2024 History of Present Illness Chief Complaint: left retinal artery occlusion Primary Care Provider: Asaf Younger MD This is a 69yo male on peritoneal dialysis. He developed visual changes over the last few weeks. 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 He denies any other focal deficits. PMHx of end-stage renal disease on peritoneal dialysis, HTN, HLD, history of PE on chronic Coumadin, DM type II, peripheral vascular disease, and CHF. Allergies Allergy/AdvReac Type Severity Reaction Status Date / Time atorvastatin AdvReac Intermediate Muscle Verified 04/24/24 12:22 aches bupropion [From Wellbutrin] AdvReac Intermediate Vivid Verified 04/24/24 12:22 dreams, hallucinations Iqepjzn-UAS-QrE Reductase AdvReac Intermediate Body aches Verified 04/24/24 12:22 Inhibitor [Xtwnuuk-Lxm-Van Reductase Inhibitor] Home Medications Medication Instructions Recorded Confirmed Type gabapentin 100 mg capsule 100 mg PO TID 03/26/20 09/06/24 History sertraline 100 mg tablet 100 mg PO PM 05/22/21 09/06/24 History fenofibrate micronized 43 mg 43 mg PO PM 08/06/22 09/06/24 History capsule rosuvastatin 20 mg tablet 20 mg PO QAM 11/25/22 09/06/24 History carvedilol 25 mg tablet (Coreg) 25 mg PO BID 12/31/22 09/06/24 History sertraline 50 mg tablet 50 mg PO PM 09/22/23 09/06/24 History warfarin 3 mg tablet 1.5 - 3 mg PO UD 09/22/23 09/06/24 History hydralazine 100 mg tablet 100 mg PO TID #270 tabs 11/17/23 09/06/24 Rx glipizide 5 mg tablet 10 mg PO QAM 01/06/24 09/06/24 History aspirin 81 mg tablet,delayed 81 mg PO PM 02/24/24 09/06/24 History release isosorbide mononitrate 60 mg 60 mg PO QAM 02/24/24 09/06/24 History tablet,extended release 24 hr amlodipine 5 mg tablet (Norvasc) 5 mg PO BID #180 tabs 03/16/24 09/06/24 Rx polyethylene glycol 3350 17 17 g PO DAILY 04/23/24 09/06/24 History gram/dose oral powder (Miralax) sevelamer HCl 800 mg tablet 800 mg PO TID 04/23/24 09/06/24 History ergocalciferol (vitamin D2) 25,000 50,000 unit PO WK 04/24/24 09/06/24 History unit capsule finasteride 5 mg tablet 5 mg PO QAM #90 tabs 07/11/24 09/06/24 Rx tamsulosin 0.4 mg capsule 0.4 mg PO DAILY #90 caps 07/25/24 09/06/24 Rx bumetanide 2 mg tablet 4 mg PO BID 09/06/24 09/06/24 History epoetin brenda-epbx 40,000 unit/mL 40,000 unit subcut MONTHLY 09/06/24 09/06/24 History injection solution (Retacrit) insulin aspart U-100 100 unit/mL 3 unit subcut BID 09/06/24 09/06/24 History (3 mL) subcutaneous pen (Novolog FlexPen U-100 Insulin aspart) insulin glargine 100 unit/mL (3 12 unit subcut HS 09/06/24 09/06/24 History mL) subcutaneous pen (Lantus Solostar U-100 Insulin) sodium bicarbonate 650 mg tablet 650 mg PO BID 09/06/24 09/06/24 History vitamin A-vitamin C-vit E-min 1 tab PO PM 09/06/24 09/06/24 History tablet Past Med/Surg History Problem List (Updated 09/07/24 @ 14:03 by Herb Scott MD) Carotid artery stenosis, symptomatic Central artery occlusion of retina (Acute) Stroke-like symptoms (Acute) Peritoneal dialysis catheter in place Stroke-like symptom Vision loss, left eye Pulmonary edema PD catheter dysfunction End-stage renal disease needing dialysis Dyslipidemia, goal LDL below 70 Stage 5 chronic kidney disease due to type 2 diabetes mellitus Lower urinary tract symptoms (LUTS) Encounter for pre-operative examination Complex renal cyst Chronic diastolic CHF (congestive heart failure) Acute hyperkalemia (Acute)08/19/22Left renal mass Under surveillanceSOB (shortness of breath) 08/06/22Anemia due to chronic kidney disease Baseline hgb 11-12 range per chart reviewVitamin D deficiency Depression, unspecified Postlaminectomy syndrome Right foot drop PVD (peripheral vascular disease) Diabetes mellitus with neuropathy Obesity (Chronic) Statin intolerance (Chronic) Hyperlipidemia (Chronic) HTN (hypertension) (Chronic) Hx pulmonary embolism 2007History of back surgery History of hip surgery Acute kidney injury 03/20/17Guillain Jean Baptiste syndrome 2013 Medical History Carotid artery disease Carotid doppler 11/17/23= 50-69% stenosis ICAs bilaterally. > 50% stenosis external carotid arteries bilaterallyLimb alert care status left armPresence of arteriovenous fistula for hemodialysis Left Wrist Arteriovenous Fistula CreationBPH (benign prostatic hyperplasia) Foot drop, right Hx of cardiac arrhythmia reason pt had heart cath several yrs ago, unsure exactly what it was, controlled now per ptCHF (congestive heart failure) follows with [facility]. [facility] renal mass Vitamin D deficiency Anemia Depression, unspecified HTN (hypertension) controlled, stable per ptHx of Guillain-Cuervo syndrome 2012Diabetes mellitus NIDDMStage 5 chronic kidney disease due to type 2 diabetes mellitus Dyslipidemia End stage renal disease no dialysis at presentHx pulmonary embolism 2007 > warfarin for this > due to prolonged travel > later discovered has a clotting disorder, a few cousins have it as well, but pt unsure of the name of the disorderEdema RLE (chronic issue x years after nerve procedure) Surgical History History of surgery Continuous Ambulatory Peritoneal Dialysis Catheter 03/15/24istory of esophagogastroduodenoscopy (EGD) Hx of foot surgery right, nerve surgery > caused foot dropHistory of back surgery lumbarHx of cardiac catheterization Remote hx many yrs ago > no stents Follows w/ Dr. Marshall/[place] of colonoscopy Hx of bilateral hip replacements History of tonsillectomy Family History Brother CancerFather Hypertension Diabetes Heart disease DementiaMother Diabetes Social History Smoking Status: Never smoker Tobacco Type: Cigarettes Second Hand Exposure: No; Do You Dip or Chew Tobacco: No; Tobacco Cessation Education Requested by Patient: No Hx Alcohol Use: No Hx Substance Use: No Preferred Language: Cameroonian Communication Ability: Effective Visual Impairment: Limited Hearing Ability: Normal Airport Manager Required: No Beliefs That Will Affect Care: None marital status: / Current Living Situation: Family Current Living Situation Comment: "daughter lives next door" current occupational status: retired Other Information That Helps Us Care for You: No Feels Safe at Home: Yes Safety Concerns: Feels Safe At This Time Diet: low salt caffeine: Yes (1 coffee daily) Physical Activity Frequency: Does not Exercise Do you think of yourself as: straight/heterosexual Gender Identity: Male Assistive Devices: Cane and Walker Review of Systems All systems reviewed & are unremarkable except as noted in HPI & below Physical Exam Constitutional: WD/WN, vitals as above Eyes: vision loss left eye Respiratory: normal respiratory effort; no respiratory distress Cardiovascular: RRR, no murmur, no edema Gastrointestinal (Abdomen): normal bowel sounds, soft, nontender, no hepatosplenomegaly pd catheter in place Neurologic: CN's II-XI intact bilaterally, normal sensation to monofilament and moves all extremities Psychiatric: A+Ox3, euthymic affect Results & Data Vital Signs (Past 12 Hours) Vital Signs Temp Pulse Pulse Resp BP Pulse Ox O2 Del Method 09/07/24 11:21 36.5 C 67 16 155/72 H 95 Room Air 09/07/24 08:00 61 09/07/24 07:37 36.6 C 63 18 151/82 H 95 Room Air 09/07/24 02:35 36.7 C 67 18 167/73 H 91 Room Air Code Status & VTE Plan VTE Prophylaxis Plan VTE Prophylaxis will be ordered: Yes Signed By: <Electronically signed by Herb Scott MD> 09/07/24 1408 Created: 09/07/24 1357 The status of this report is Signed. Draft = Not yet reviewed or approved by Medical Physician. Signed = Reviewed and approved by Medical Physician.Allergies Allergy/AdvReac Type Severity Reaction Status Date / Time atorvastatin AdvReac Intermediate Muscle Verified 09/12/24 14:47 aches bupropion [From Wellbutrin] AdvReac Intermediate Vivid Verified 09/12/24 14:47 dreams, hallucinations Srbyjfg-HYG-MlB Reductase AdvReac Intermediate Body aches Verified 09/12/24 14:47 Inhibitor [Fdzzeyj-Fta-Stp Reductase Inhibitor] Home Medications Medication Instructions Recorded Confirmed Type gabapentin 100 mg capsule 100 mg PO TID 03/26/20 09/12/24 History sertraline 100 mg tablet 100 mg PO PM 05/22/21 09/12/24 History fenofibrate micronized 43 mg 43 mg PO PM 08/06/22 09/12/24 History capsule rosuvastatin 20 mg tablet 20 mg PO QAM 11/25/22 09/12/24 History carvedilol 25 mg tablet (Coreg) 25 mg PO BID 12/31/22 09/12/24 History sertraline 50 mg tablet 50 mg PO PM 09/22/23 09/12/24 History warfarin 3 mg tablet 1.5 - 3 mg PO UD 09/22/23 09/12/24 History hydralazine 100 mg tablet 100 mg PO TID #270 tabs 11/17/23 09/12/24 Rx glipizide 5 mg tablet 10 mg PO QAM 01/06/24 09/12/24 History aspirin 81 mg tablet,delayed 81 mg PO PM 02/24/24 09/12/24 History release isosorbide mononitrate 60 mg 60 mg PO QAM 02/24/24 09/12/24 History tablet,extended release 24 hr amlodipine 5 mg tablet (Norvasc) 5 mg PO BID #180 tabs 03/16/24 09/12/24 Rx polyethylene glycol 3350 17 17 g PO Q OTHER DAY 04/23/24 09/12/24 History gram/dose oral powder (Miralax) sevelamer HCl 800 mg tablet 800 mg PO TID 04/23/24 09/12/24 History finasteride 5 mg tablet 5 mg PO QAM #90 tabs 07/11/24 09/12/24 Rx bumetanide 2 mg tablet 4 mg PO BID 09/06/24 09/12/24 History epoetin brenda-epbx 40,000 unit/mL 40,000 unit subcut MONTHLY 09/06/24 09/12/24 History injection solution (Retacrit) insulin aspart U-100 100 unit/mL 3 unit subcut BID 09/06/24 09/12/24 History (3 mL) subcutaneous pen (Novolog FlexPen U-100 Insulin aspart) insulin glargine 100 unit/mL (3 12 unit subcut HS 09/06/24 09/12/24 History mL) subcutaneous pen (Lantus Solostar U-100 Insulin) sodium bicarbonate 650 mg tablet 650 mg PO BID 09/06/24 09/12/24 History clopidogrel 75 mg tablet (Plavix) 75 mg PO QPM 09/12/24 09/12/24 History tamsulosin 0.4 mg capsule 0.4 mg PO QAM 09/12/24 09/12/24 History Past Med/Surg History Problem List (Updated 09/12/24 @ 15:37 by Kate Mead PA-C) Carotid artery stenosis, symptomatic Central artery occlusion of retina (Acute) Peritoneal dialysis catheter in place Pulmonary edema End-stage renal disease needing dialysis Dyslipidemia, goal LDL below 70 Lower urinary tract symptoms (LUTS) Encounter for pre-operative examination Complex renal cyst Chronic diastolic CHF (congestive heart failure) Left renal mass Under surveillanceSOB (shortness of breath) 08/06/22Anemia due to chronic kidney disease Baseline hgb 11-12 range per chart reviewVitamin D deficiency Depression, unspecified Postlaminectomy syndrome Right foot drop PVD (peripheral vascular disease) Diabetes mellitus with neuropathy Obesity (Chronic) Statin intolerance (Chronic) Hyperlipidemia (Chronic) HTN (hypertension) (Chronic) Guillain Jean Baptiste syndrome 2012 Medical History Anemia BPH (benign prostatic hyperplasia) Carotid artery disease Carotid doppler 11/17/23= 50-69% stenosis ICAs bilaterally. > 50% stenosis external carotid arteries bilaterally admit to [facility]/ stroke like symptoms- d/c 09/09/24Central artery occlusion of retina (09/07/24) CHF (congestive heart failure) [place], [place] Diabetes mellitus NIDDMDyslipidemia Edema RLE (chronic issue x years after nerve procedure)End stage renal disease PD every day 2960-2376- follows with neph dr. hidalgoFoot drop, right HTN (hypertension) controlled, stable per ptHx of cardiac arrhythmia reason pt had heart cath several yrs ago, unsure exactly what it was, controlled now per ptHx of Guillain-Cuervo syndrome 2013Hx of pulmonary edema Hx pulmonary embolism 2007 > warfarin for this > due to prolonged travel > later discovered has a clotting disorder, a few cousins have it as well, but pt unsure of the name of the disorderHyperlipidemia Left renal mass Limb alert care status left armPeritoneal dialysis catheter in situ PD every day - follows with neph dr. hidalgoPresence of arteriovenous fistula for hemodialysis Left Wrist Arteriovenous Fistula CreationPVD (peripheral vascular disease) SOB (shortness of breath) on exertion Vision loss, left eye admit to [facility], carotid occlusion, stroke r/oVitamin D deficiency Surgical History History of back surgery lumbarHistory of esophagogastroduodenoscopy (EGD) History of surgery (04/24/24) Continuous Ambulatory Peritoneal Dialysis Catheter 03/15/24 and 04/24/24istory of tonsillectomy Hx of bilateral hip replacements Hx of cardiac catheterization Remote hx many yrs ago > no stents - [facility] Follows w/ Dr. Marshall/[place] - no longer seesHx of colonoscopy Hx of foot surgery right, nerve surgery > caused foot drop Family History Brother CancerFather Hypertension Diabetes Heart disease DementiaMother Diabetes Social History Smoking Status: Former smoker Tobacco Type: Cigarettes Smoking End Date: 25 years ago; Second Hand Exposure: No; Do You Dip or Chew Tobacco: No; Tobacco Cessation Education Requested by Patient: No Hx Alcohol Use: No Hx Substance Use: No Preferred Language: Cameroonian Communication Ability: Effective Visual Impairment: Limited Hearing Ability: Normal Airport Manager Required: No Beliefs That Will Affect Care: None marital status: / Current Living Situation: Family Current Living Situation Comment: [place] current occupational status: retired Other Information That Helps Us Care for You: No Feels Safe at Home: Yes Safety Concerns: Feels Safe At This Time Diet: low salt caffeine: Yes (1 coffee daily) Physical Activity Frequency: Does not Exercise Do you think of yourself as: straight/heterosexual Gender Identity: Male Assistive Devices: Walker Signed By: <Electronically signed by Herb Scott MD> 09/17/24958 Created: 09/17/24958 The status of this report is Signed. Draft = Not yet reviewed or approved by Medical Physician. Signed = Reviewed and approved by Medical Physician. Allergies Allergy/AdvReac Type Severity Reaction Status Date / Time atorvastatin AdvReac Intermediate Muscle Verified 09/18/24 12:59 aches bupropion [From Wellbutrin] AdvReac Intermediate Vivid Verified 09/18/24 12:59 dreams, hallucinations Hdviysy-WTR-AbU Reductase AdvReac Intermediate Body aches Verified 09/18/24 12:59 Inhibitor [Zldegrf-Jxm-Xzu Reductase Inhibitor] Home Medications Medication Instructions Recorded Confirmed Type gabapentin 100 mg capsule 100 mg PO TID 03/26/20 09/18/24 History sertraline 100 mg tablet 100 mg PO PM 05/22/21 09/18/24 History fenofibrate micronized 43 mg 43 mg PO PM 08/06/22 09/18/24 History capsule rosuvastatin 20 mg tablet 20 mg PO QAM 11/25/22 09/18/24 History carvedilol 25 mg tablet (Coreg) 25 mg PO BID 12/31/22 09/18/24 History sertraline 50 mg tablet 50 mg PO PM 09/22/23 09/18/24 History warfarin 3 mg tablet 1.5 - 3 mg PO UD 09/22/23 09/18/24 History hydralazine 100 mg tablet 100 mg PO TID #270 tabs 11/17/23 09/18/24 Rx glipizide 5 mg tablet 10 mg PO QAM 01/06/24 09/18/24 History aspirin 81 mg tablet,delayed 81 mg PO PM 02/24/24 09/18/24 History release isosorbide mononitrate 60 mg 60 mg PO QAM 02/24/24 09/18/24 History tablet,extended release 24 hr amlodipine 5 mg tablet (Norvasc) 5 mg PO BID #180 tabs 03/16/24 09/18/24 Rx polyethylene glycol 3350 17 17 g PO Q OTHER DAY 04/23/24 09/18/24 History gram/dose oral powder (Miralax) sevelamer HCl 800 mg tablet 800 mg PO TID 04/23/24 09/18/24 History finasteride 5 mg tablet 5 mg PO QAM #90 tabs 07/11/24 09/18/24 Rx bumetanide 2 mg tablet 4 mg PO BID 09/06/24 09/18/24 History epoetin brenda-epbx 40,000 unit/mL 40,000 unit subcut MONTHLY 09/06/24 09/18/24 History injection solution (Retacrit) insulin aspart U-100 100 unit/mL 3 unit subcut BID 09/06/24 09/18/24 History (3 mL) subcutaneous pen (Novolog FlexPen U-100 Insulin aspart) insulin glargine 100 unit/mL (3 12 unit subcut HS 09/06/24 09/18/24 History mL) subcutaneous pen (Lantus Solostar U-100 Insulin) sodium bicarbonate 650 mg tablet 650 mg PO BID 09/06/24 09/18/24 History tamsulosin 0.4 mg capsule 0.4 mg PO QAM 09/12/24 09/18/24 History ticagrelor 90 mg tablet (Brilinta) 90 mg PO BID #60 tabs 09/18/24 09/18/24 Rx Past Med/Surg History Problem List Carotid artery stenosis, symptomatic Central artery occlusion of retina (Acute) Peritoneal dialysis catheter in place Pulmonary edema End-stage renal disease needing dialysis Dyslipidemia, goal LDL below 70 Lower urinary tract symptoms (LUTS) Encounter for pre-operative examination Complex renal cyst Chronic diastolic CHF (congestive heart failure) Left renal mass Under surveillance SOB (shortness of breath) 08/06/22 Anemia due to chronic kidney disease Baseline hgb 11-12 range per chart review Vitamin D deficiency Depression, unspecified Postlaminectomy syndrome Right foot drop PVD (peripheral vascular disease) Diabetes mellitus with neuropathy Obesity (Chronic) Statin intolerance (Chronic) Hyperlipidemia (Chronic) HTN (hypertension) (Chronic) Guillain Jean Baptiste syndrome 2012 Medical History Anemia BPH (benign prostatic hyperplasia) Carotid artery disease Carotid doppler 11/17/23= 50-69% stenosis ICAs bilaterally. > 50% stenosis external carotid arteries bilaterally admit to [facility]/ stroke like symptoms- d/c 09/09/24 Central artery occlusion of retina (09/07/24) CHF (congestive heart failure) no longer follows with Dr. Marshall in [place] Depression, unspecified Diabetes mellitus NIDDM Dyslipidemia Edema RLE (chronic issue x years after nerve procedure) End stage renal disease PD every day - follows with neph dr. hidalgo Foot drop, right HTN (hypertension) controlled, stable per pt Hx of cardiac arrhythmia reason pt had heart cath several yrs ago, unsure exactly what it was, controlled now per pt Hx of Guillain-Cuervo syndrome 2012 Hx of pulmonary edema Hx pulmonary embolism 2007 > warfarin for this > due to prolonged travel > later discovered has a clotting disorder, a few cousins have it as well, but pt unsure of the name of the disorder Hyperlipidemia Left renal mass Limb alert care status left arm Peritoneal dialysis catheter in situ PD every day - follows with neph dr. hidalgo Presence of arteriovenous fistula for hemodialysis Left Wrist Arteriovenous Fistula Creation PVD (peripheral vascular disease) SOB (shortness of breath) on exertion Vision loss, left eye admit to [facility], carotid occlusion, stroke r/o Vitamin D deficiency Surgical History History of back surgery lumbar History of esophagogastroduodenoscopy (EGD) History of surgery (04/24/24) Continuous Ambulatory Peritoneal Dialysis Catheter 03/15/24 and 04/24/24 History of tonsillectomy Hx of bilateral hip replacements Hx of cardiac catheterization Remote hx many yrs ago > no stents - [facility] Follows w/ Dr. Marshall/[place] - no longer sees Hx of colonoscopy Hx of foot surgery right, nerve surgery > caused foot drop Family History Brother Cancer Father Hypertension Diabetes Heart disease Dementia Mother Diabetes Social History Smoking Status: Former smoker Tobacco Type: Cigarettes Smoking End Date: 25 years ago; Second Hand Exposure: No; Do You Dip or Chew Tobacco: No; Hx Alcohol Use: No Hx Substance Use: No Preferred Language: Cameroonian Communication Ability: Effective Visual Impairment: Limited Hearing Ability: Normal Airport Manager Required: No Beliefs That Will Affect Care: None marital status: / Current Living Situation: Family Current Living Situation Comment: with daughter current occupational status: retired Feels Safe at Home: Yes Safety Concerns: Feels Safe At This Time Diet: low salt caffeine: Yes (1 coffee daily) Physical Activity Frequency: Does not Exercise Do you think of yourself as: straight/heterosexual Gender Identity: Male Assistive Devices: Walker
--- NOTE | 2024-09-19 12:38 | History & Physical Bridge Note ---
Date of Service September 19, 2024 History & Physical Bridge Note I have examined the patient, reviewed the History & Physical and in the interval since the performance of the History & Physical I have noted the following changes of clinical significance: no changes noted
[2024-09-19 13:33] LABS: BUN Creatinine Ratio 13.6 (10-20); Calcium 9.2 mg/dl (8.6-10.3); Creatinine Clr Calc Pharmacy 11.8 ml/min; INR 1.2 (0.9-1.1); Partial Thromboplastin Ratio 1.2; Partial Thromboplastin Time 32 Seconds (21-31); Potassium 3.8 mmol/L (3.5-5.1)
[2024-09-19] MEDS: SODIUM CHLORIDE 0.9% 1,000 ML IV SCH (13:50)
[2024-09-19] MEDS ORDERED: ONDANSETRON INJ 2 MG/ML 2 ML VIAL IV PRN (13:51)
[2024-09-19] MEDS ORDERED: ATROPINE SULFATE 0.1 MG/ML 10ML SYR IV PRN (13:51)
[2024-09-19] MEDS ORDERED: ePHEDrine sulfate 50 MG/ML AMP IV PRN (13:51)
[2024-09-19] MEDS ORDERED: HYDROmorphone INJ 1 MG/ML SYRINGE IV PRN (13:51)
[2024-09-19] MEDS ORDERED: PHENYLEPHRINE/NSS 25 MG/250 ML BAG IV PRN ×2 (13:51→18:52)
[2024-09-19] MEDS ORDERED: fentaNYL citrate PF 100 MCG/2 ML VIAL IV PRN (13:51)
[2024-09-19] MEDS ORDERED: LIDOCAINE 2% 2 ML VIAL/AMP(20MG/ML) INFIL ONE (14:06)
[2024-09-19] MEDS ORDERED: PROPOFOL IV EMULSION 10 MG/ML 20 ML VIAL IV ONE (14:07)
[2024-09-19] MEDS ORDERED: GLYCOPYRROLATE 0.2 MG/ML VIAL ONE (14:07)
[2024-09-19] MEDS ORDERED: PHENYLEPHRINE HCL 25 MG/250 ML NSS IV ONE (14:07)
[2024-09-19] MEDS ORDERED: ROCURONIUM BROMIDE 10 MG/ML 5 ML VIAL IV ONE (14:07)
[2024-09-19] MEDS ORDERED: fentaNYL citrate PF 100 MCG/2 ML VIAL ONE (14:07)
[2024-09-19] MEDS ORDERED: ONDANSETRON INJ 2 MG/ML 2 ML VIAL ONE (14:10)
[2024-09-19] MEDS: ceFAZolin 2000MG 2,000 MG/15 ML SYR IV SCH ×3 (15:15→22:24)
--- NOTE | 2024-09-19 15:25 | Anesthesia Procedure Note ---
Anesthesia Procedure Note Arterial Line Note Patient medical history, medications, allergies and vitals reviewed. Date of procedure: 09/19/24 Consent: Risk / Benefits Reviewed With: PT / POA / Parent / Guardian, Accepts Plan, Informed Consent Obtained and All Questions Answered Monitors attached: Blood Pressure, CO2, EKG and Pulse Oximetry Time out completed: Yes Premedication: None Laterality: Right Location: Brachial (attempt x 2 in radial, no flashes) Hand hygeine: Soap and water and Alcohol based hand rub Equipment/Supplies: Cap, Mask, Sterile gloves, Sterile drapes and Sterile procedures used Skin prep: Chloraprep Local medication: 1% Lidocaine (ml) Ultrasound used: Yes US equipment and supplies: Sterile Gel and Sterile Probe Cover Attempts: 3 (only one attempt brachial, other attempts by sara guerrero) Procedure Summary: 20 gauge angiocath advanced until return of bright red blood. Catheter threaded using seldinger technique with return of pulsatile, bright red blood. Catheter secured with tape and covered with occlusive dressing. Waveform consistent with correct arterial placement. After placement, normal perfusion was observed distal to the site of catheter placement. Post-Procedure: Pt hemodynamically stable, Pt tolerates well and No complication Anesthesia Charges Arterial Line A Line Charges: 11254 Insert Art line [facility]
[2024-09-19] MEDS ORDERED: HEPARIN SOD (PORCINE) 1000 UNIT/ML ONE (15:44)
[2024-09-19] MEDS ORDERED: VASOPRESSIN 20 UNIT/ML VIAL ONE (15:44)
[2024-09-19] MEDS: THROMBIN FOR SOLN 20000 UNIT KIT ONE (16:27)
[2024-09-19] MEDS: GELATIN SPONGE SZ 100 ONE (16:27)
[2024-09-19] MEDS ORDERED: SUGAMMADEX SODIUM 200 MG/2 ML VIAL IV ONE (16:50)
[2024-09-19] MEDS ORDERED: PROTAMINE SULFATE 10 MG/ML 5 ML VIAL IV ONE (16:55)
[2024-09-19] MEDS: ceFAZolin 330 MG/ML 1 GM VIAL ONE (16:56)
[2024-09-19] MEDS: VISIPAQUE IV PRN (16:57)
[2024-09-19] MEDS: BUPIVACAINE/EPINEPHRINE 0.5% MPF 1:200,000 30 ML VIAL ONE (17:04)
--- NOTE | 2024-09-19 17:07 | Post Operative Brief Note ---
Immediate Post Op Note Date of Surgery September 19, 2024 Pre & Post Diagnosis Operation Date: 09/19/24 14:50 Pre-Op Diagnosis: Left internal carotid artery stenosis. Post-Op Diagnosis: Left internal carotid artery stenosis. I identified the patient and participated in the time-out.: Yes Procedure Operation Date: 09/19/24 14:50 Actual Procedures p Left Transcarotid Artery Revascularization(Left), Ultrasound right common femoral vein- Herb Scott MD Surgeon Herb Scott MD Deep Submergence Vehicle Crewmember MD Dominic MaynardMinarchick,PAC Estimated Blood Loss 30 Findings Consistent with Post-Op Diagnosis Anesthesia Type General Complications none Disposition Accompanied Patient To Recovery: No Disposition: Recovery Room
--- NOTE | 2024-09-19 17:15 | Operative Report ---
Post Operative Report Pre & Post Diagnosis Operation Date: 09/19/24 14:50 Pre-Op Diagnosis: Left internal carotid artery stenosis. Post-Op Diagnosis: Left internal carotid artery stenosis. I identified the patient and participated in the time-out.: Yes Procedure Operation Date: 09/19/24 14:50 Actual Procedures p Left Transcarotid Artery Revascularization(Left) - Herb Scott MD Surgeon Herb Scott MD Police Lieutenant Patrol Prashanth Odonnell MD; Abida Munoz PA-C Estimated Blood Loss 30 Findings Consistent with Post-Op Diagnosis Severe stenosis of the left carotid artery resolved following stent placement. Completion angiography with patent left common carotid, external and internal carotid artery Specimens None Anesthesia Type General Complications None Disposition Accompanied Patient To Recovery: No Indications Mr. Herb Desai is a 69 year old male with symptomatic left carotid artery disease. After discussion of the risks and benefits of the procedure, Mr Desai elected to undergo a left TCAR Description of Procedure The patient was taken to the operating room and placed in supine position. After general anesthesia was accomplished the left-side of the neck and right groin were prepped and draped in a sterile manner. A transverse 4cm incision was made on the left neck over the sternal and clavicular heads of the sternocleidomastoid muscle and below the omohyoid. Subcutaneous tissue and platysma were divided using electrocautery. Dissection using Metzenbaum scissors proceeded and the carotid sheath was identified medially. It was divided longitudinally. The internal jugular was retracted laterally. The common carotid artery was identified with the Vagus nerve anterolateral. The common carotid artery was mobilized with Metzenbaum scissors and umbilical tape was placed around the artery. Once sufficient length, about 2cm of the common carotid were mobilized, a 5-0 Proline suture was used to place a U-Stitch in the anterior surface of the left common carotid artery Attention was turned to the right common femoral vein which was then accessed under ultrasound guidance using a micropuncture needle. This was exchanged for the Venous Return Sheath over the provided 0.035'' wire. Blood was aspirated from the flow line followed by flushing of the venous sheath with heparinized saline. The sheath was sutured in place to the patient's skin. 9000U of heparin was then given to obtain an ACT > 250. A micropuncture needle was used to access the common carotid artery in the center of the U-stitch. The micropuncture wire was then advance 4cm into the common carotid artery and the micropuncture needle was removed. The micropuncture sheath was advanced 2-3cm into the common carotid artery and the wire and dilator were removed. A carotid angiogram was performed and the lesion was marked. A TCAR Timeout was performed. The carotid artery was clamped. Next a 0.035'' J guidewire was was inserted and placed just proximal to the right internal carotid artery lesion without engaging the lesion. The micropuncture sheath was exchanged over the guidewire and the Transcarotid Arterial Sheath was advanced to the 2.5cm marker in correct coaxial orientation and the J wire and dilator were removed. The Sheath was sutured to the patient and then flushed with heparinized saline. No air bubbles visualized during flushing The flow controller was connected to the Transcarotid arterial sheath. Arterial blood was allowed to passively fill the device completely to which it was then connected to the Venous return sheath. The flow controller was set to high. The common carotid artery proximal to the access point was then clamped with an angled DeBakey and flow reversal was confirmed. A left carotid angiogram was then performed and the left internal carotid artery lesion was marked. HR and systolic blood pressures were adequate with HR of about 80 and blood pressure between 140 and 160 systolic. The lesion was then crossed using a 0.014'' guidewire. The lesion was then pre-dilated using a 5mm x 30mm balloon. This balloon was then exchanged and primary stenting was performed with the Transcarotid stent, appropriately sized (9-7 x 40mm, extended distally with a 9mm x 30mm). Post dilation of the overlap was performed with a 5x30mm balloon to 14 ATMs. Completion carotid angiography demonstrated patent stent with <50% residual stenosis Antegrade flow was restored following release of the common carotid artery clamp. The arterial sheath was removed and U-Stitch tied. 25units of protamine were given. The femoral venous sheath was removed and pressure held for 5 min with adequate hemostasis. Adequate hemostasis was seen of the carotid artery. The wound was inspected and adequate hemostasis was obtained. It was then closed with a running 3-0 Vicryl suture for the platysmal layer and a 4-0 subcuticular Vicryl suture for the skin edges. Dermabond was used for dressing. Patient awoke from anesthesia without difficulties. Was neurovascularly intact, moving all extremities and following commands at case completion. The patient left the operating room in satisfactory condition and tolerated the procedure well A total of 28mGy, 3.6 min of fluoroscopy time, and 21cc of contrast were used during the procedure. Dr. Scott was present and scrubbed for the entire procedure. I attest to the content of the Intraoperative Record and any orders documented therein. Any exceptions are noted below. Supervising Physician Co-Signing Physician Notes Herb Scott MD
--- NOTE | 2024-09-19 18:21 | Anesthesiology Progress Note ---
Date of Service September 19, 2024 Anesthesia Post Procedure Vital Signs Vital Signs: Temp Pulse Resp BP Pulse Ox O2 Del Method O2 Flow Rate 09/19/24 18:05 84 16 128/46 L 94 Room Air 09/19/24 17:55 84 16 132/45 L 98 Oxymask 2 09/19/24 17:45 85 16 139/45 L 99 Oxymask 4 09/19/24 17:35 36.5 C 84 16 140/47 L 97 Oxymask 6 09/19/24 13:06 36.4 C L 78 20 103/61 96 Room Air Transfer of Care Handoff Completed per policy Notes Mental Status: alert / awake / arousable Patient Amnestic to Procedure: Yes Nausea / Vomiting: adequately controlled Pain: adequately controlled Airway Patency, RR, SpO2: stable & adequate BP & HR: stable & adequate Hydration State: stable & adequate Anesthetic Complications: no major complications apparent
[2024-09-19] MEDS ORDERED: EPOETIN ALFA EPBX 40000 UNIT/ML SQ SCH (18:52)
[2024-09-19] MEDS ORDERED: PHARMACY GLYCEMIC MGMT CONSULT PRN (18:52)
[2024-09-19] MEDS ORDERED: STAT IV Infusion **Titration per Protocol STA (18:52)
--- NOTE | 2024-09-19 19:26 | Critical Care Consultation ---
Date of Consultation September 19, 2024 Assessment & Plan (1) Carotid artery stenosis, symptomatic: Plan Reason Critically Ill: 1. L carotid stenosis s/p TCAR 2. ESRD on PD Neuro - Continue home Gabapentin. Multimodal pain management as ordered Cardiac - Goal normotension Continue home Rx, ASA, Bumex, statin SBP goal > 100mmHg Respiratory - No acute concerns SpO2 > 92% IS/Flutter GI - Diet: Advance SADIE SUP: N/A Bowel regimen: PRN, up and around early RENAL/LYTES - OK to hold on PD tonight, will be D/C in AM to continue outpatient regimen Bumex as ordered Replete electrolytes as indicated Maintain net even to net negative IVF as above Renvela TID, Proscar, Flomax, HCO3 tab ENDO - Last A1c 7.5 BG 140-180 per [facility] guidelines ISS if needed while inpatient HEME/ONC/OTHER - Warfarin held, defer reinitiation to Vascular surgery Dressing changes PRN ID - Perioperative antibiotics per primary LINES/TUBES/DRAINS - PIV x2 PD catheter (2023) DVT PROPHYLAXIS - Per Vascular I have personally spent 32 minutes of critical care time in the direct managem ent of this patient. This is a life/limb threatening event. This includes time spent evaluating patient, direct bedside care, chart review, placing orders, interpretation of diagnostic studies, discussion with consultants, patient, and family members, as well as other required patient management activities. This time is exclusive of all separately billable procedures, and teaching time and separate from and in addition to any other critical care service time. Thank you for allowing us to participate in the care of this patient. Please refer to my attending physician's documentation for any further recommendations. Supervising Physician Co-Signing Physician Notes Patient seen and examined. EMR reviewed. Agree with assessment plan as noted by ARIADNE. Please refer to my progress note from 09/20/2024 for additional details History of Present Illness Reason for Consultation: Post TCAR Requesting Physician: Sonia Attending Physician: Herb Scott MD History of Present Illness Mr. Herb Desai is a pleasant 69YOM with an extensive past medical history who underwent elective L TCAR with Dr. Scott on 09/19/2024. Procedure was uncomplicated and patient has been recovering well. Hemodynamics are in acceptable range and he is in no distress. Patient denies current pain. He has some mild bleeding at the site requiring dressing change x1. 10-point ROS negative. Past Medical History: Retinal artery occlusion Bilateral carotid stenosis HFpEF (60% 2024) DMII Diabetic nephropathy with ESRD on PD HTN/HLD PAD Anemia of chronic disease PE on warfarin Former smoker Depression/Anxiety Allergies Allergy/AdvReac Type Severity Reaction Status Date / Time atorvastatin AdvReac Intermediate Muscle Verified 09/19/24 13:08 aches bupropion [From Wellbutrin] AdvReac Intermediate Vivid Verified 09/19/24 13:08 dreams, hallucinations Zvunbnx-DER-NpY Reductase AdvReac Intermediate Body aches Verified 09/19/24 13:08 Inhibitor [Mlvgxlw-Pyw-Zvx Reductase Inhibitor] Home Medications Medication Instructions Recorded Confirmed Type gabapentin 100 mg capsule 100 mg PO TID 03/26/20 09/19/24 History sertraline 100 mg tablet 100 mg PO PM 05/22/21 09/19/24 History fenofibrate micronized 43 mg 43 mg PO PM 08/06/22 09/19/24 History capsule rosuvastatin 20 mg tablet 20 mg PO QAM 11/25/22 09/19/24 History carvedilol 25 mg tablet (Coreg) 25 mg PO BID 12/31/22 09/19/24 History sertraline 50 mg tablet 50 mg PO PM 09/22/23 09/19/24 History warfarin 3 mg tablet 1.5 - 3 mg PO UD 09/22/23 09/19/24 History hydralazine 100 mg tablet 100 mg PO TID #270 tabs 11/17/23 09/19/24 Rx glipizide 5 mg tablet 10 mg PO QAM 01/06/24 09/19/24 History aspirin 81 mg tablet,delayed 81 mg PO PM 02/24/24 09/19/24 History release isosorbide mononitrate 60 mg 60 mg PO QAM 02/24/24 09/19/24 History tablet,extended release 24 hr amlodipine 5 mg tablet (Norvasc) 5 mg PO BID #180 tabs 03/16/24 09/19/24 Rx polyethylene glycol 3350 17 17 g PO Q OTHER DAY 04/23/24 09/19/24 History gram/dose oral powder (Miralax) sevelamer HCl 800 mg tablet 800 mg PO TID 04/23/24 09/19/24 History finasteride 5 mg tablet 5 mg PO QAM #90 tabs 07/11/24 09/19/24 Rx bumetanide 2 mg tablet 4 mg PO BID 09/06/24 09/19/24 History epoetin brenda-epbx 40,000 unit/mL 40,000 unit subcut MONTHLY 09/06/24 09/19/24 History injection solution (Retacrit) insulin aspart U-100 100 unit/mL 3 unit subcut BID 09/06/24 09/19/24 History (3 mL) subcutaneous pen (Novolog FlexPen U-100 Insulin aspart) insulin glargine 100 unit/mL (3 12 unit subcut HS 09/06/24 09/19/24 History mL) subcutaneous pen (Lantus Solostar U-100 Insulin) sodium bicarbonate 650 mg tablet 650 mg PO BID 09/06/24 09/19/24 History tamsulosin 0.4 mg capsule 0.4 mg PO QAM 09/12/24 09/19/24 History ticagrelor 90 mg tablet (Brilinta) 90 mg PO BID #60 tabs 09/18/24 09/19/24 Rx Patient History Medical History Anemia BPH (benign prostatic hyperplasia) Carotid artery disease Carotid doppler 11/17/23= 50-69% stenosis ICAs bilaterally. 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 Marshall in [place] Depression, unspecified Diabetes mellitus NIDDM Dyslipidemia Edema RLE (chronic issue x years after nerve procedure) End stage renal disease PD every day - follows with neph dr. 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 hidalgo Presence of arteriovenous fistula for hemodialysis Left Wrist Arteriovenous Fistula Creation PVD (peripheral vascular disease) SOB (shortness of breath) on exertion Vision loss, left eye [facility], carotid occlusion, stroke r/o Vitamin D deficiency Surgical History History of back surgery lumbar History of esophagogastroduodenoscopy (EGD) History of surgery (04/24/24) Continuous Ambulatory Peritoneal Dialysis Catheter 03/15/24 and 04/24/24 History of tonsillectomy Hx of bilateral hip replacements Hx of cardiac catheterization Remote hx many yrs ago > no stents - [facility] Follows w/ Dr. Marshall/[place] - no longer sees Hx of colonoscopy Hx of foot surgery right, nerve surgery > caused foot drop Family History Brother Cancer Father Hypertension Diabetes Heart disease Dementia Mother Diabetes Social History Smoking Status: Former smoker Tobacco Type: Cigarettes Smoking End Date: 25 years ago; Second Hand Exposure: No; Do You Dip or Chew Tobacco: No; Hx Alcohol Use: No Hx Substance Use: No Preferred Language: Trinidadian Communication Ability: Effective Visual Impairment: Limited Hearing Ability: Normal Energy Infrastructure Engineer Required: No Beliefs That Will Affect Care: None marital status: / Current Living Situation: Family Current Living Situation Comment: with daughter current occupational status: retired Feels Safe at Home: Yes Safety Concerns: Feels Safe At This Time Diet: low salt caffeine: Yes (1 coffee daily) Physical Activity Frequency: Does not Exercise Do you think of yourself as: straight/heterosexual Gender Identity: Male Assistive Devices: Walker Review of Systems Review of Systems: All systems reviewed & are unremarkable except as noted in Subjective Physical Exam Constitutional: WD/WN, vitals as above Eyes: PERRL, conjunctivae normal, anicteric sclerae ENMT: external ear and nose normal, oropharynx normal Neck: L surgical site with dressing C/D/I, no hematoma visible. No Respiratory: normal respiratory effort, lungs clear to auscultation Cardiovascular: RRR, no murmur, no edema Gastrointestinal (Abdomen): normal bowel sounds, soft, nontender, no hepatosplenomegaly Musculoskeletal: no cyanosis or clubbing, extremities motor strength 5/5 Skin: no rashes, warm and dry Surgical site as above Neurologic: PERRL, EOMI, accommodation nl, no face palsy, no dysarthria Results & Data Results & Data Vital Signs (Past 12 Hours) Vital Signs Temp Pulse Pulse Resp BP BP Pulse Ox 09/19/24 19:01 113/96 09/19/24 19:00 83 22 90 09/19/24 18:57 83 20 93 09/19/24 18:54 81 15 90 09/19/24 18:39 82 18 122/51 L 92 09/19/24 18:25 36.4 C L 83 16 129/45 L 93 09/19/24 18:15 83 16 125/44 L 94 09/19/24 18:05 84 16 128/46 L 94 09/19/24 17:55 84 16 132/45 L 98 09/19/24 17:45 85 16 139/45 L 99 09/19/24 17:35 36.5 C 84 16 140/47 L 97 09/19/24 13:06 36.4 C L 78 20 103/61 96 O2 Del Method O2 Flow Rate 09/19/24 19:01 09/19/24 19:00 09/19/24 18:57 09/19/24 18:54 09/19/24 18:39 Room Air 09/19/24 18:25 Room Air 09/19/24 18:15 Room Air 09/19/24 18:05 Room Air 09/19/24 17:55 Oxymask 2 09/19/24 17:45 Oxymask 4 09/19/24 17:35 Oxymask 6 09/19/24 13:06 Room Air Laboratory Results Reviewed Diagnostic Findings Reviewed Medications Administered See MAR Coding Level of Care Code 46122 CRITICAL CARE 1ST 30-74M Diagnoses Carotid artery stenosis, symptomatic I65.29 Time Spent (min) 32
[2024-09-19] MEDS: LACTATED RINGER'S 1,000 ML IV SCH (19:30)
[2024-09-19] MEDS: INSULIN ASPART PER UNIT CHARGE SC SCH (20:19)
[2024-09-19] MEDS: ASPIRIN 81 MG ECTAB PO SCH (22:20)
[2024-09-19] MEDS: POLYETHYLENE (MIRALAX) 17 GM PACK PO SCH (22:20)
[2024-09-19] MEDS: amLODIPine BESYLATE 5 MG TAB PO SCH (22:20)
[2024-09-19] MEDS: BUMETANIDE 1 MG TAB PO SCH (22:21)
[2024-09-19] MEDS: LANTUS PER UNIT CHARGE SC SCH (22:21)
[2024-09-19] MEDS: carvediloL 25 MG TAB PO SCH (22:21)
[2024-09-19] MEDS: hydrALAZINE TAB 50 MG TAB PO SCH (22:21)
[2024-09-19] MEDS: GABAPENTIN 100 MG CAP PO SCH (22:21)
[2024-09-19] MEDS: TICAGRELOR 90 MG TAB PO SCH (22:22)
[2024-09-19] MEDS: SERTRALINE HCL 50 MG TABLET PO SCH (22:22)
[2024-09-19] MEDS: SEVELAMER CARBONATE 800 MG TAB PO SCH (22:22)
[2024-09-19] MEDS: SODIUM BICARBONATE 650 MG TAB PO SCH (22:22)
[2024-09-19] MEDS: SERTRALINE HCL 100 MG TABLET PO SCH (22:24)
[2024-09-19] MEDS: oxyCODONE/ACETAMINOPHEN 5mg/325mg TAB PO PRN (23:30)
[2024-09-20 05:15] LABS: Basophils # (auto) 0.05 K/uL (0.00-0.20); Basophils % (auto) 0.6 %; Eosinophils # (auto) 0.08 K/uL (0.00-0.50); Eosinophils % (auto) 0.9 %; Hematocrit (blood only) 25.4 % (42.0-52.0); Hemoglobin 8.5 g/dl (14.0-18.0); Immature Granulocytes # (auto) 0.02 K/uL (0.01-0.20); Immature Granulocytes % (auto) 0.2 %; Lymphocytes # (auto) 1.06 K/uL (1.20-3.40); Lymphocytes % (auto) 12.2 %; Mean Corpuscular Hemoglobin 30.2 pg (25.0-34.0); Mean Corpuscular Hgb Conc 33.5 g/dL (32.0-36.0); Mean Corpuscular Volume 90.4 fL (80.0-100.0); Mean Platelet Volume 9.6 fL (9.4-12.4); Monocytes % (auto) 6.9 %; Neutrophils # (auto) 6.87 K/uL (1.40-6.50); Neutrophils % (auto) 79.2 %; Platelet Count 192 K/uL (130-400); RDW Coefficient of Variation 13.1 % (11.5-14.5); RDW Standard Deviation 43.5 fL (36.4-46.3); Red Blood Count 2.81 M/uL (4.70-6.10); White Blood Count 8.68 K/ul (4.8-10.8)
[2024-09-20 05:41] LABS: Calcium 8.4 mg/dl (8.6-10.3); Creatinine Clr Calc Pharmacy 12.2 ml/min; Potassium 3.3 mmol/L (3.5-5.1)
[2024-09-20 05:43] LABS: INR 1.2 (0.9-1.1); Prothrombin Time 12.8 Seconds (9.0-12.0)
[2024-09-20 07:17] VITALS: TEMP 98.1; O2SAT 92
[2024-09-20] MEDS: FINASTERIDE 5 MG TAB PO SCH (08:25)
[2024-09-20] MEDS: ROSUVASTATIN CALCIUM 20 MG TAB PO SCH (08:26)
[2024-09-20] MEDS: TAMSULOSIN HCL 0.4 MG CAP PO SCH (08:26)
[2024-09-20] MEDS: ISOSORBIDE MONO EXTENDED REL 60 MG TABCR PO SCH (08:29)
--- NOTE | 2024-09-20 08:40 | Critical Care Progress Note ---
Date of Service September 20, 2024 Assessment & Plan (1) Carotid artery stenosis, symptomatic: Plan Impression: 69-year-old male status post left TCAR. Doing well clinically. Recommendations: 1. Status post TCAR: Patient is doing well clinically. Management and disposition per vascular surgery. Defer anticoagulation and antiplatelet agents to vascular surgery. 2. Anemia: Likely postoperative blood loss. No indication for transfusion currently. Continue to follow. 3. End-stage renal disease. Continue peritoneal dialysis. Patient is doing well clinically. Critical care issues have resolved. Disposition per vascular surgery. Critical care will sign off. Feel free to contact us with questions or concerns Admission and Anticipated Discharge Date Admission Date: September 19, 2024 Subjective Patient seen and examined. EMR reviewed. Discussed with bedside critical care nurse and multidisciplinary rounds. Patient is doing well this morning. He is tolerating a diet. No chest pain or palpitations. He did have some bleeding from his TCAR site and vascular surgery placed a subcutaneous stitch this morning with resolution of the bleeding. Patient has no new concerns this morning Review of Systems Review of Systems: All systems reviewed & are unremarkable except as noted in Subjective Physical Exam Constitutional: WD/WN, vitals as above Neck: trachea midline, no thyromegaly TCAR site slightly bruised. Stitch in place. No ongoing bleeding Respiratory: normal respiratory effort, lungs clear to auscultation Cardiovascular: RRR, no murmur, no edema Gastrointestinal (Abdomen): normal bowel sounds, soft, nontender, no hepa tosplenomegaly Musculoskeletal: Extremities: extremities normal to inspection Skin: no rashes, warm and dry Neurologic: Nonfocal exam Lymphatic: no cervical lymphadenopathy Results & Data Results & Data Vital Signs (Past 12 Hours) Vital Signs Temp Pulse Resp BP Pulse Ox 09/20/24 08:00 79 09/20/24 06:21 79 19 92 09/20/24 06:01 36.7 C 147/43 H 09/20/24 05:03 36.8 C 84 16 126/67 93 09/20/24 05:00 36.9 C 81 16 126/65 93 09/20/24 04:33 36.7 C 81 17 128/82 92 09/20/24 03:00 36.9 C 82 17 104/60 92 09/20/24 01:01 36.8 C 79 17 105/36 L 93 09/20/24 00:03 80 19 93 09/20/24 00:00 80 09/19/24 23:00 36.8 C 82 19 126/86 94 09/19/24 22:00 36.7 C 79 17 142/71 H 93 09/19/24 21:00 36.9 C 80 15 134/53 L 92 Critical Care Results & Data Vital Signs (Past 12 Hours) Vital Signs Temp Pulse Resp BP Pulse Ox 09/20/24 08:00 79 09/20/24 06:21 79 19 92 09/20/24 06:01 36.7 C 147/43 H 09/20/24 05:03 36.8 C 84 16 126/67 93 09/20/24 05:00 36.9 C 81 16 126/65 93 09/20/24 04:33 36.7 C 81 17 128/82 92 09/20/24 03:00 36.9 C 82 17 104/60 92 09/20/24 01:01 36.8 C 79 17 105/36 L 93 09/20/24 00:03 80 19 93 09/20/24 00:00 80 09/19/24 23:00 36.8 C 82 19 126/86 94 09/19/24 22:00 36.7 C 79 17 142/71 H 93 09/19/24 21:00 36.9 C 80 15 134/53 L 92 Lab & Micro Results (Past 24 Hours) RBC 2.81 M/uL (4.70-6.10) L 09/20/24 WBC 8.68 K/ul (4.8-10.8) 09/20/24 Hgb 8.5 g/dl (14.0-18.0) L 09/20/24 Hct 25.4 % (42.0-52.0) L 09/20/24 MCV 90.4 fL (80.0-100.0) 09/20/24 MCH 30.2 pg (25.0-34.0) 09/20/24 MCHC 33.5 g/dL (32.0-36.0) 09/20/24 RDW Standard Deviation 43.5 fL (36.4-46.3) 09/20/24 RDW Coefficient of Variation 13.1 % (11.5-14.5) 09/20/24 Plt Count 192 K/uL (130-400) 09/20/24 MPV 9.6 fL (9.4-12.4) 09/20/24 Neutrophils (%) (Auto) 79.2 % 09/20/24 Lymphocytes (%) (Auto) 12.2 % 09/20/24 Monocytes # (Auto) 0.60 K/uL (0.11-0.59) H 09/20/24 Eosinophils # (Auto) 0.08 K/uL (0.00-0.50) 09/20/24 Immature Granulocyte % (Auto) 0.2 % 09/20/24 Neutrophils # (Auto) 6.87 K/uL (1.40-6.50) H 09/20/24 Lymphocytes # (Auto) 1.06 K/uL (1.20-3.40) L 09/20/24 Monocytes # (Auto) 0.60 K/uL (0.11-0.59) H 09/20/24 Eosinophils # (Auto) 0.08 K/uL (0.00-0.50) 09/20/24 Basophils # (Auto) 0.05 K/uL (0.00-0.20) 09/20/24 Immature Granulocyte # (Auto) 0.02 K/uL (0.01-0.20) 5 Na 141 mmol/L (136-145) 09/20/24 K 3.3 mmol/L (3.5-5.1) L 09/20/24 Cl 103 mmol/L (98-107) 09/20/24 CO2 27 mmol/L (21-32) 09/20/24 Anion Gap 11 (3-11) 09/20/24 BUN 82 mg/dl (6-23) H 09/20/24 Creatinine 6.32 mg/dl (0.6-1.4) H* 09/20/24 BUN/Creatinine Ratio 13.0 (10-20) 09/20/24 Glu 81 mg/dl (70-99(Fasting)) 09/20/24 Ca 8.4 mg/dl (8.6-10.3) L 09/20/24 Calcium Level 8.4 mg/dl (8.6-10.3) L 09/20/24 05:01 Prothromb Time International Ratio 1.2 (0.9-1.1) H 09/20/24 05 :01 I & O Totals 24 Hours 09/19/24 09/20/24 09/21/24 06:59 06:59 06:59 Intake Total 2950 / 2950 125 / 125 Output Total 555 / 555 Balance 2395 / 2395 125 / 125 Cumulative 09/18/24 12:17 thru 09/20/24 08:00 Intake Total 3075 Output Total 555 Balance 2520 RT Ventilator Mngmt (Last Documented) Ventilator Ordered Settings Respiratory Rate 19 09/20/24 06:21 Ventilator - PT Measurements Respiratory Rate 19 Coding Level of Care Code 68884 SUB INP/OBS CARE 2/35MIN Diagnoses Carotid artery stenosis, symptomatic I65.29
[2024-09-20] MEDS ORDERED: glipiZIDE 5 MG TAB PO SCH (09:00)
[2024-09-20 09:20] VITALS: PULSE 82; RESP 17
[2024-09-20] MEDS: LIDOCAINE 1%/EPINEPHRINE 1:100,000 50 ML VIAL INFIL ONE (09:59)
--- NOTE | 2024-09-20 10:55 | Pharmacy Report ---
Pharmacy Glycemic Short Note 2 - Date of Service September 20, 2024 - Glycemic Short BSG Results (Last 24 hours): 09/19/24 09/19/24 09/19/24 12:48 13:01 17:36 Glucose 169 H POC Glucose 173 H 133 H 09/19/24 09/20/24 09/20/24 21:26 05:01 07:04 Glucose 81 POC Glucose 101 H 82 OUTPATIENT ANTIDIABETIC REGIMEN: * glipizide 10mg PO daily * Novolog 3 units SQ BID * Lantus 12 units SQ HS HbA1C: 7.5% (09/07) ASSESSMENT: * Pt is a 69 YOM admitted POD #1 left TCAR. History of DM2 on multiple outpatient anti-hyperglycemic agents. Pharmacy consulted to assist with inpatient glycemic management. * BSGs [phone]/dL since admission. Has not received insulin. Lantus ordered last night however not given. * Diet ordered (although minimal PO intake documented) and other stressors stable. * Lantus 5 units X 1 dose this afternoon given BSG rise into 200s. Will add an HS scale depending on BSG. Novolog ACHS mild-moderate stress scale. PLAN FOR INPATIENT GLYCEMIC CONTROL: * Hold outpatient oral diabetes medications * Basal insulin * 5 units X 1 dose at lunch + HS scale depending on BSG * Bolus insulin * NovoLog per scale ACHS or Q6hrs while NPO * Goal Range: Low 110 mg/dL - High 140 mg/dL * Correction Factor: 30 mg/dL/unit * Nutritional / Prandial insulin per carb ratio of 1 unit per 11 grams CHO consumed
--- NOTE | 2024-09-20 11:49 | Ultrasound Report ---
US arterial duplex UE RT CLINICAL HISTORY: possible pseudoaneurysm right arm COMPARISON STUDY: None FINDINGS: There is mild atherosclerosis. At the distal brachial artery there is a 5 mm pseudoaneurysm with narrow neck. No other significant abnormality seen at the arteries of the right upper extremity . 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 ACT 112: Negative or not required by law. Electronically signed by: Daryn Urbina M.D. 09/20/2024 11:47 AM
[2024-09-20] MEDS: LANTUS PER UNIT CHARGE SC ONE (12:19)
--- NOTE | 2024-09-20 13:14 | Urology Consultation ---
<Statement entered by Elieser Galvan MD - 09/20/24 14:31> I have discussed Mr. Desai's case with OBINNA Dudley and agree with the above documentation. 69-year-old male with postoperative urinary retention. He has some incomplete emptying at baseline and is already on tamsulosin and finasteride. This is likely exacerbated by recent anesthesia. I agree with ind welling Lux catheter. Urology will coordinate office visit for voiding trial and to continue follow-up. Urology will sign off. Please call with any questions or concerns. -Elieser Galvan MD. Date of Consultation September 20, 2024 Assessment & Plan (1) Urinary retention: 69-year-old male with history end stage renal disease on peritoneal dialysis admitted after scheduled left TCAR with Dr. Scott on 09/19/24. Urology is consulted today for urinary retention. Patient with post operative urinary retention He has required straight catheterization x1, then voided small amount with elevated PVR Discussed placing a Lux catheter if he is unable to void/elevated PVR, he is agreeable Recommend maintain catheter for approximately 1 week We will arrange outpatient follow-up with urology for voiding trial Continue Tamsulosin will sign off, please contact our service with any additional questions /concerns History of Present Illness Reason for Consultation: Dr. Scott Attending Physician: Herb Scott MD History of Present Illness This is a 69-year-old male with history end stage renal disease on peritoneal dialysis who has followed with urology for complex renal cyst and lower urinary tract symptoms. He was admitted after scheduled left TCAR with Dr. Scott on 09/19/24. Urology is consulted today for urinary retention. Patient was straight catheterized for 525 mL this morning at 0400. Per nursing, he voided 100 mL, but patient was complaining of urinary retention. PVR bladder scan was performed with 380 mL. Patient seen at bedside in ICU. He is awake and sitting up to eat lunch. Reports difficulty voiding this morning and required straight catheterization. He subsequently voided a small amount, but reports some suprapubic fullness. He reports he typically voids every few hours. He is on Tamsulosin. Denies any additional concerns at present. Allergies Allergy/AdvReac Type Severity Reaction Status Date / Time atorvastatin AdvReac Intermediate Muscle Verified 09/19/24 13:08 aches bupropion [From Wellbutrin] AdvReac Intermediate Vivid Verified 09/19/24 13:08 dreams, hallucinations Szflwuu-NBV-PxJ Reductase AdvReac Intermediate Body aches Verified 09/19/24 13:08 Inhibitor [Krmkhxp-Ayd-Mma Reductase Inhibitor] Home Medications Medication Instructions Recorded Confirmed Type gabapentin 100 mg capsule 100 mg PO TID 03/26/20 09/19/24 History sertraline 100 mg tablet 100 mg PO PM 05/22/21 09/19/24 History fenofibrate micronized 43 mg 43 mg PO PM 08/06/22 09/19/24 History capsule rosuvastatin 20 mg tablet 20 mg PO QAM 11/25/22 09/19/24 History carvedilol 25 mg tablet (Coreg) 25 mg PO BID 12/31/22 09/19/24 History sertraline 50 mg tablet 50 mg PO PM 09/22/23 09/19/24 History warfarin 3 mg tablet 1.5 - 3 mg PO UD 09/22/23 09/19/24 History hydralazine 100 mg tablet 100 mg PO TID #270 tabs 11/17/23 09/19/24 Rx glipizide 5 mg tablet 10 mg PO QAM 01/06/24 09/19/24 History aspirin 81 mg tablet,delayed 81 mg PO PM 02/24/24 09/19/24 History release isosorbide mononitrate 60 mg 60 mg PO QAM 02/24/24 09/19/24 History tablet,extended release 24 hr amlodipine 5 mg tablet (Norvasc) 5 mg PO BID #180 tabs 03/16/24 09/19/24 Rx polyethylene glycol 3350 17 17 g PO Q OTHER DAY 04/23/24 09/19/24 History gram/dose oral powder (Miralax) sevelamer HCl 800 mg tablet 800 mg PO TID 04/23/24 09/19/24 History finasteride 5 mg tablet 5 mg PO QAM #90 tabs 07/11/24 09/19/24 Rx bumetanide 2 mg tablet 4 mg PO BID 09/06/24 09/19/24 History epoetin brenda-epbx 40,000 unit/mL 40,000 unit subcut MONTHLY 09/06/24 09/19/24 History injection solution (Retacrit) insulin aspart U-100 100 unit/mL 3 unit subcut BID 09/06/24 09/19/24 History (3 mL) subcutaneous pen (Novolog FlexPen U-100 Insulin aspart) insulin glargine 100 unit/mL (3 12 unit subcut HS 09/06/24 09/19/24 History mL) subcutaneous pen (Lantus Solostar U-100 Insulin) sodium bicarbonate 650 mg tablet 650 mg PO BID 09/06/24 09/19/24 History tamsulosin 0.4 mg capsule 0.4 mg PO QAM 09/12/24 09/19/24 History ticagrelor 90 mg tablet (Brilinta) 90 mg PO BID #60 tabs 09/18/24 09/19/24 Rx Patient History Medical History Peritoneal dialysis catheter in situ PD every day - follows with neph dr. 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 > 50% stenosis external carotid arteries bilaterally admit to [facility]/ stroke like symptoms- d/c 09/09/24 Limb alert care status left arm Presence of arteriovenous fistula for hemodialysis Left Wrist Arteriovenous Fistula Creation BPH (benign prostatic hyperplasia) Foot drop, right Hx of cardiac arrhythmia reason pt had heart cath several yrs ago, unsure exactly what it was, controlled now per pt CHF (congestive heart failure) no longer follows with Dr. Marshall in [place] Left renal mass Vitamin D deficiency Anemia Depression, unspecified HTN (hypertension) controlled, stable per pt Hx of Guillain-Lamesa syndrome 2012 Diabetes mellitus NIDDM Dyslipidemia End stage renal disease PD every day - follows with neph dr. 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 Marshall/[place] - no longer sees Hx of colonoscopy Hx of bilateral hip replacements History of tonsillectomy Family History Brother Cancer Father Hypertension Diabetes Heart disease Dementia Mother Diabetes Social History Smoking Status: Former smoker Tobacco Type: Cigarettes Smoking End Date: 25 years ago; Second Hand Exposure: No; Do You Dip or Chew Tobacco: No; Hx Alcohol Use: No Hx Substance Use: No Preferred Language: Kyrgyz Communication Ability: Effective Visual Impairment: Limited Hearing Ability: Normal [employer] Required: No Beliefs That Will Affect Care: None marital status: / Current Living Situation: Family Current Living Situation Comment: with daughter current occupational status: retired Feels Safe at Home: Yes Safety Concerns: Feels Safe At This Time Diet: low salt caffeine: Yes (1 coffee daily) Physical Activity Frequency: Does not Exercise Do you think of yourself as: straight/heterosexual Gender Identity: Male Assistive Devices: Cane and Walker Review of Systems Constitutional: as per Subjective / HPI Genitourinary: + as per Subjective / HPI Physical Exam Constitutional: no acute distress Respiratory: normal respiratory effort; no respiratory distress and no labored breathing Musculoskeletal: Head/Neck/Chest: normocephalic Skin: ecchymosis on left TCAR site Neurologic: moves all extremities and awake Psychiatric: Orientation: alert and oriented x 3 Results & Data Vital Signs (Past 12 Hours) Vital Signs Temp Pulse Resp BP Pulse Ox O2 Del Method 09/20/24 09:01 103/47 L 09/20/24 09:00 82 17 92 09/20/24 08:39 76 21 94 09/20/24 08:12 83 11 L 97 09/20/24 08:12 105/73 09/20/24 08:03 79 24 93 09/20/24 08:01 76/59 L 09/20/24 08:00 79 09/20/24 07:33 78 19 93 09/20/24 07:30 82 19 94 09/20/24 07:30 Room Air 09/20/24 07:12 101/75 09/20/24 07:06 77 18 90 09/20/24 07:01 89/62 L 09/20/24 06:54 78 18 91 09/20/24 06:30 80 17 90 09/20/24 06:21 79 19 92 09/20/24 06:01 36.7 C 147/43 H 09/20/24 05:03 36.8 C 84 16 126/67 93 09/20/24 05:00 36.9 C 81 16 126/65 93 09/20/24 04:33 36.7 C 81 17 128/82 92 09/20/24 03:00 36.9 C 82 17 104/60 92 PG Care Time/CCT Total # of Minutes Spent Total Time Spent with Patient: Total time spent is greater than 50% in coordination of care (as documented) at patient's floor/unit and/or counseling patient: Coding Level of Care Code 52074 INT INP/OBS CARE 1/40MIN Diagnoses Urinary retention R33.9
--- NOTE | 2024-09-20 15:02 | Surgery Progress Note ---
Date of Service September 20, 2024 Assessment & Plan (1) Carotid artery stenosis, symptomatic: Plan: Patient pod #1 from left tcar. Doing well with no neuro deficits. Will d/c today (2) Acute blood loss as cause of postoperative anemia: Plan: Hgb 8.5 post op from blood loss during surgery and post op and dilutional effect. No active bleeding appreciated. Will check as an outpatient. (3) Urinary retention: Plan: Patient had post op urinary retention. Urology consulted and patient sent home with petty and a leg bag and will follow up with Urology (4) Pseudoaneurysm of artery of upper extremity: Plan: Patient underwent duplex scan after developing arm swelling post art line removal. This showed a small pseudoaneurysm with a very small neck. Will rescan in two weeks to see if it may spontaneously seals. Admission and Anticipated Discharge Date Admission Date: September 19, 2024 Subjective Patient complains of swelling of left arm in area of art line. Also had urinary retention post op. He did have bloody drainage overnight from edge of incision which required a single stitch the am. No complaints of neuro deficits. Physical Exam Constitutional: WD/WN, vitals as above Neck: trachea midline Respiratory: normal respiratory effort; no respiratory distress Cardiovascular: Rate/Rhythm: regular rate and regular rhythm Mild swelling of left arm in area of art line Skin: + incision (incision dry and clean) Neurologic: CN's II-XI intact bilaterally and moves all extremities Psychiatric: A+Ox3, euthymic affect Results & Data Vital Signs (Past 12 Hours) Vital Signs Temp Pulse Resp BP Pulse Ox O2 Del Method 09/20/24 09:01 103/47 L 09/20/24 09:00 82 17 92 09/20/24 08:39 76 21 94 09/20/24 08:12 83 11 L 97 09/20/24 08:12 105/73 09/20/24 08:03 79 24 93 09/20/24 08:01 76/59 L 09/20/24 08:00 79 09/20/24 07:33 78 19 93 09/20/24 07:30 82 19 94 09/20/24 07:30 Room Air 09/20/24 07:12 101/75 09/20/24 07:06 77 18 90 09/20/24 07:01 89/62 L 09/20/24 06:54 78 18 91 09/20/24 06:30 80 17 90 09/20/24 06:21 79 19 92 09/20/24 06:01 36.7 C 147/43 H 09/20/24 05:03 36.8 C 84 16 126/67 93 09/20/24 05:00 36.9 C 81 16 126/65 93 09/20/24 04:33 36.7 C 81 17 128/82 92 09/20/24 03:00 36.9 C 82 17 104/60 92
--- NOTE | 2024-09-20 15:12 | Discharge Summary ---
Date of Service September 20, 2024 Admission HPI Per Admitting Provider [place] [address] History & Physical Report Signed Patient: SONIA GARCIA Admit Date: 09/17/24 MR#: [id number] Att Phy: Sonia Scott M.D. Acct ID: [id number] Britany Phy: Asaf Younger MD Date: 1955 Fam Phy: Age: 69 Location: [facility] Sex: M Room/Bed: Legal Sex: M cc: ~ *NOTICE TO RECEIVING CONSTITUTION PARTY/AGENCY This information is strictly Confidential and protected under [place] law. [place] law prohibits you from making any further disclosure of this information unless further disclosure is expressly permitted by the written consent of the person to whom it pertains or is authorized by law. A general authorization for the release of medical or other information is not sufficient for this purpose. Hospital accepts no responsibility if the information is made available to any other person, INCLUDING THE PATIENT. Date of Service September 17, 2024 History of Present Illness Primary Care Provider: Asaf Younegr MD Date of Service September 07, 2024 Assessment & Plan (1) Carotid artery stenosis, symptomatic: Plan: Patient with significant bilateral carotid artery stenosis. Recommend intervention to both sides starting with the left symptomatic side. We discussed the risks of endarterectomy vs TCAR. He understood and agreed to go ahead with a tcar. He needs to stay on DAPT and a statin, non stop till 30 days post surgery. We will try to have it scheduled within the next two weeks. Thank you very much for letting us participate in the care of this patient. Admission and Anticipated Discharge Date Admission Date: September 06, 2024 History of Present Illness Chief Complaint: left retinal artery occlusion Primary Care Provider: Asaf Younger MD This is a 69yo male on peritoneal dialysis. He developed visual changes over the last few weeks. 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 He denies any other focal deficits. PMHx of end-stage renal disease on peritoneal dialysis, HTN, HLD, history of PE on chronic Coumadin, DM type II, peripheral vascular disease, and CHF. Allergies Allergy/AdvReac Type Severity Reaction Status Date / Time atorvastatin AdvReac Intermediate Muscle Verified 04/24/24 12:22 aches bupropion [From Wellbutrin] AdvReac Intermediate Vivid Verified 04/24/24 12:22 dreams, hallucinations Sgpcfyz-TYY-MkQ Reductase AdvReac Intermediate Body aches Verified 04/24/24 12:22 Inhibitor [Fctohlu-Zqw-Fqj Reductase Inhibitor] Home Medications Medication Instructions Recorded Confirmed Type gabapentin 100 mg capsule 100 mg PO TID 03/26/20 09/06/24 History sertraline 100 mg tablet 100 mg PO PM 05/22/21 09/06/24 History fenofibrate micronized 43 mg 43 mg PO PM 08/06/22 09/06/24 History capsule rosuvastatin 20 mg tablet 20 mg PO QAM 11/25/22 09/06/24 History carvedilol 25 mg tablet (Coreg) 25 mg PO BID 12/31/22 09/06/24 History sertraline 50 mg tablet 50 mg PO PM 09/22/23 09/06/24 History warfarin 3 mg tablet 1.5 - 3 mg PO UD 09/22/23 09/06/24 History hydralazine 100 mg tablet 100 mg PO TID #270 tabs 11/17/23 09/06/24 Rx glipizide 5 mg tablet 10 mg PO QAM 01/06/24 09/06/24 History aspirin 81 mg tablet,delayed 81 mg PO PM 02/24/24 09/06/24 History release isosorbide mononitrate 60 mg 60 mg PO QAM 02/24/24 09/06/24 History tablet,extended release 24 hr amlodipine 5 mg tablet (Norvasc) 5 mg PO BID #180 tabs 03/16/24 09/06/24 Rx polyethylene glycol 3350 17 17 g PO DAILY 04/23/24 09/06/24 History gram/dose oral powder (Miralax) sevelamer HCl 800 mg tablet 800 mg PO TID 04/23/24 09/06/24 History ergocalciferol (vitamin D2) 25,000 50,000 unit PO WK 04/24/24 09/06/24 History unit capsule finasteride 5 mg tablet 5 mg PO QAM #90 tabs 07/11/24 09/06/24 Rx tamsulosin 0.4 mg capsule 0.4 mg PO DAILY #90 caps 07/25/24 09/06/24 Rx bumetanide 2 mg tablet 4 mg PO BID 09/06/24 09/06/24 History epoetin brenda-epbx 40,000 unit/mL 40,000 unit subcut MONTHLY 09/06/24 09/06/24 History injection solution (Retacrit) insulin aspart U-100 100 unit/mL 3 unit subcut BID 09/06/24 09/06/24 History (3 mL) subcutaneous pen (Novolog FlexPen U-100 Insulin aspart) insulin glargine 100 unit/mL (3 12 unit subcut HS 09/06/24 09/06/24 History mL) subcutaneous pen (Lantus Solostar U-100 Insulin) sodium bicarbonate 650 mg tablet 650 mg PO BID 09/06/24 09/06/24 History vitamin A-vitamin C-vit E-min 1 tab PO PM 09/06/24 09/06/24 History tablet Past Med/Surg History Problem List (Updated 09/07/24 @ 14:03 by Sonia Scott MD) Carotid artery stenosis, symptomatic Central artery occlusion of retina (Acute) Stroke-like symptoms (Acute) Peritoneal dialysis catheter in place Stroke-like symptom Vision loss, left eye Pulmonary edema PD catheter dysfunction End-stage renal disease needing dialysis Dyslipidemia, goal LDL below 70 Stage 5 chronic kidney disease due to type 2 diabetes mellitus Lower urinary tract symptoms (LUTS) Encounter for pre-operative examination Complex renal cyst Chronic diastolic CHF (congestive heart failure) Acute hyperkalemia (Acute)08/19/22Left renal mass Under surveillanceSOB (shortness of breath) 08/06/22Anemia due to chronic kidney disease Baseline hgb 11-12 range per chart reviewVitamin D deficiency Depression, unspecified Postlaminectomy syndrome Right foot drop PVD (peripheral vascular disease) Diabetes mellitus with neuropathy Obesity (Chronic) Statin intolerance (Chronic) Hyperlipidemia (Chronic) HTN (hypertension) (Chronic) Hx pulmonary embolism 2008History of back surgery History of hip surgery Acute kidney injury 03/20/17Guillain Jean Baptiste syndrome 2013 Medical History Carotid artery disease Carotid doppler 11/17/23= 50-69% stenosis ICAs bilaterally. > 50% stenosis external carotid arteries bilaterallyLimb alert care status left armPresence of arteriovenous fistula for hemodialysis Left Wrist Arteriovenous Fistula CreationBPH (benign prostatic hyperplasia) Foot drop, right Hx of cardiac arrhythmia reason pt had heart cath several yrs ago, unsure exactly what it was, controlled now per ptCHF (congestive heart failure) follows with Dr. [facility] in [facility] renal mass Vitamin D deficiency Anemia Depression, unspecified HTN (hypertension) controlled, stable per ptHx of Guillain-Lawton syndrome 2012Diabetes mellitus NIDDMStage 5 chronic kidney disease due to type 2 diabetes mellitus Dyslipidemia End stage renal disease no dialysis at presentHx pulmonary embolism 2007 > warfarin for this > due to prolonged travel > later discovered has a clotting disorder, a few cousins have it as well, but pt unsure of the name of the disorderEdema RLE (chronic issue x years after nerve procedure) Surgical History History of surgery Continuous Ambulatory Peritoneal Dialysis Catheter 24History of esophagogastroduodenoscopy (EGD) Hx of foot surgery right, nerve surgery > caused foot dropHistory of back surgery lumbarHx of cardiac catheterization Remote hx many yrs ago > no stents Follows w/ Dr. Marshall/John of colonoscopy Hx of bilateral hip replacements History of tonsillectomy Family History Brother CancerFather Hypertension Diabetes Heart disease DementiaMother Diabetes Social History Smoking Status: Never smoker Tobacco Type: Cigarettes Second Hand Exposure: No; Do You Dip or Chew Tobacco: No; Tobacco Cessation Education Requested by Patient: No Hx Alcohol Use: No Hx Substance Use: No Preferred Language: Andorran Communication Ability: Effective Visual Impairment: Limited Hearing Ability: Normal Transfer Car Operator Drier Required: No Beliefs That Will Affect Care: None marital status: / Current Living Situation: Family Current Living Situation Comment: "daughter lives next door" current occupational status: retired Other Information That Helps Us Care for You: No Feels Safe at Home: Yes Safety Concerns: Feels Safe At This Time Diet: low salt caffeine: Yes (1 coffee daily) Physical Activity Frequency: Does not Exercise Do you think of yourself as: straight/heterosexual Gender Identity: Male Assistive Devices: Cane and Walker Review of Systems All systems reviewed & are unremarkable except as noted in HPI & below Physical Exam Constitutional: WD/WN, vitals as above Eyes: vision loss left eye Respiratory: normal respiratory effort; no respiratory distress Cardiovascular: RRR, no murmur, no edema Gastrointestinal (Abdomen): normal bowel sounds, soft, nontender, no hepatosplenomegaly pd catheter in place Neurologic: CN's II-XI intact bilaterally, normal sensation to monofilament and moves all extremities Psychiatric: A+Ox3, euthymic affect Results & Data Vital Signs (Past 12 Hours) Vital Signs Temp Pulse Pulse Resp BP Pulse Ox O2 Del Method 09/07/24 11:21 36.5 C 67 16 155/72 H 95 Room Air 09/07/24 08:00 61 09/07/24 07:37 36.6 C 63 18 151/82 H 95 Room Air 09/07/24 02:35 36.7 C 67 18 167/73 H 91 Room Air Code Status & VTE Plan VTE Prophylaxis Plan VTE Prophylaxis will be ordered: Yes Signed By: <Electronically signed by Sonia Scott MD> 09/07/24 8418 Created: 09/07/24 7099 The status of this report is Signed. Draft = Not yet reviewed or approved by Medical Physician. Signed = Reviewed and approved by Medical Physician.Allergies Allergy/AdvReac Type Severity Reaction Status Date / Time atorvastatin AdvReac Intermediate Muscle Verified 09/12/24 14:47 aches bupropion [From Wellbutrin] AdvReac Intermediate Vivid Verified 09/12/24 14:47 dreams, hallucinations Kumnzcs-PCT-KeJ Reductase AdvReac Intermediate Body aches Verified 09/12/24 14:47 Inhibitor [Gsuhiqb-Pdn-Vmg Reductase Inhibitor] Home Medications Medication Instructions Recorded Confirmed Type gabapentin 100 mg capsule 100 mg PO TID 03/26/20 09/12/24 History sertraline 100 mg tablet 100 mg PO PM 05/22/21 09/12/24 History fenofibrate micronized 43 mg 43 mg PO PM 08/06/22 09/12/24 History capsule rosuvastatin 20 mg tablet 20 mg PO QAM 11/25/22 09/12/24 History carvedilol 25 mg tablet (Coreg) 25 mg PO BID 12/31/22 09/12/24 History sertraline 50 mg tablet 50 mg PO PM 09/22/23 09/12/24 History warfarin 3 mg tablet 1.5 - 3 mg PO UD 09/22/23 09/12/24 History hydralazine 100 mg tablet 100 mg PO TID #270 tabs 11/17/23 09/12/24 Rx glipizide 5 mg tablet 10 mg PO QAM 01/06/24 09/12/24 History aspirin 81 mg tablet,delayed 81 mg PO PM 02/24/24 09/12/24 History release isosorbide mononitrate 60 mg 60 mg PO QAM 02/24/24 09/12/24 History tablet,extended release 24 hr amlodipine 5 mg tablet (Norvasc) 5 mg PO BID #180 tabs 03/16/24 09/12/24 Rx polyethylene glycol 3350 17 17 g PO Q OTHER DAY 04/23/24 09/12/24 History gram/dose oral powder (Miralax) sevelamer HCl 800 mg tablet 800 mg PO TID 04/23/24 09/12/24 History finasteride 5 mg tablet 5 mg PO QAM #90 tabs 07/11/24 09/12/24 Rx bumetanide 2 mg tablet 4 mg PO BID 09/06/24 09/12/24 History epoetin brenda-epbx 40,000 unit/mL 40,000 unit subcut MONTHLY 09/06/24 09/12/24 History injection solution (Retacrit) insulin aspart U-100 100 unit/mL 3 unit subcut BID 09/06/24 09/12/24 History (3 mL) subcutaneous pen (Novolog FlexPen U-100 Insulin aspart) insulin glargine 100 unit/mL (3 12 unit subcut HS 09/06/24 09/12/24 History mL) subcutaneous pen (Lantus Solostar U-100 Insulin) sodium bicarbonate 650 mg tablet 650 mg PO BID 09/06/24 09/12/24 History clopidogrel 75 mg tablet (Plavix) 75 mg PO QPM 09/12/24 09/12/24 History tamsulosin 0.4 mg capsule 0.4 mg PO QAM 09/12/24 09/12/24 History Past Med/Surg History Problem List (Updated 09/12/24 @ 15:37 by Kate Mead PA-C) Carotid artery stenosis, symptomatic Central artery occlusion of retina (Acute) Peritoneal dialysis catheter in place Pulmonary edema End-stage renal disease needing dialysis Dyslipidemia, goal LDL below 70 Lower urinary tract symptoms (LUTS) Encounter for pre-operative examination Complex renal cyst Chronic diastolic CHF (congestive heart failure) Left renal mass Under surveillanceSOB (shortness of breath) 08/06/22Anemia due to chronic kidney disease Baseline hgb 11-12 range per chart reviewVitamin D deficiency Depression, unspecified Postlaminectomy syndrome Right foot drop PVD (peripheral vascular disease) Diabetes mellitus with neuropathy Obesity (Chronic) Statin intolerance (Chronic) Hyperlipidemia (Chronic) HTN (hypertension) (Chronic) Guillain Jean Baptiste syndrome 2012 Medical History Anemia BPH (benign prostatic hyperplasia) Carotid artery disease Carotid doppler 11/17/23= 50-69% stenosis ICAs bilaterally. > 50% stenosis external carotid arteries bilaterally admit to [facility]/ stroke like symptoms- d/c 09/09/24Central artery occlusion of retina (09/07/24) CHF (congestive heart failure) [place], [place] Diabetes mellitus NIDDMDyslipidemia Edema RLE (chronic issue x years after nerve procedure)End stage renal disease PD every day - follows with neph dr. hidalgoFoot terry, right HTN (hypertension) controlled, stable per ptHx of cardiac arrhythmia reason pt had heart cath several yrs ago, unsure exactly what it was, controlled now per ptHx of Guillain-Lawton syndrome 2013Hx of pulmonary edema Hx pulmonary embolism 2007 > warfarin for this > due to prolonged travel > later discovered has a clotting disorder, a few cousins have it as well, but pt unsure of the name of the disorderHyperlipidemia Left renal mass Limb alert care status left armPeritoneal dialysis catheter in situ PD every day - follows with neph dr. hidalgoPresence of arteriovenous fistula for hemodialysis Left Wrist Arteriovenous Fistula CreationPVD (peripheral vascular disease) SOB (shortness of breath) on exertion Vision loss, left eye admit to [facility], carotid occlusion, stroke r/oVitamin D deficiency Surgical History History of back surgery lumbarHistory of esophagogastroduodenoscopy (EGD) History of surgery (04/24/24) Continuous Ambulatory Peritoneal Dialysis Catheter 03/15/24 and 04/24/24istory of tonsillectomy Hx of bilateral hip replacements Hx of cardiac catheterization Remote hx many yrs ago > no stents - [facility] Follows w/ Dr. Marshall/[place] - no longer seesHx of colonoscopy Hx of foot surgery right, nerve surgery > caused foot drop Family History Brother CancerFather Hypertension Diabetes Heart disease DementiaMother Diabetes Social History Smoking Status: Former smoker Tobacco Type: Cigarettes Smoking End Date: 25 years ago; Second Hand Exposure: No; Do You Dip or Chew Tobacco: No; Tobacco Cessation Education Requested by Patient: No Hx Alcohol Use: No Hx Substance Use: No Preferred Language: Andorran Communication Ability: Effective Visual Impairment: Limited Hearing Ability: Normal Transfer Car Operator Drier Required: No Beliefs That Will Affect Care: None marital status: / Current Living Situation: Family Current Living Situation Comment: dtr current occupational status: retired Other Information That Helps Us Care for You: No Feels Safe at Home: Yes Safety Concerns: Feels Safe At This Time Diet: low salt caffeine: Yes (1 coffee daily) Physical Activity Frequency: Does not Exercise Do you think of yourself as: straight/heterosexual Gender Identity: Male Assistive Devices: Walker Signed By: <Electronically signed by Sonia Scott MD> 09/17/24 0959 Created: 09/17/24 0959 The status of this report is Signed. Draft = Not yet reviewed or approved by Medical Physician. Signed = Reviewed and approved by Medical Physician. Admission Exam Per Admitting Provider Constitutional: WD/WN, vitals as above Eyes: vision loss left eye Respiratory: normal respiratory effort; no respiratory distress Cardiovascular: RRR, no murmur, no edema Gastrointestinal (Abdomen): normal bowel sounds, soft, nontender, no hepatosplenomegaly pd catheter in place Neurologic: CN's II-XI intact bilaterally, normal sensation to monofilament and moves all extremities Psychiatric: A+Ox3, euthymic affect Principal Diagnosis Left internal carotid artery stenosis Discharge Exam Constitutional WD/WN, vitals as above Neck trachea midline Respiratory normal respiratory effort; no respiratory distress Cardiovascular Rate/Rhythm: regular rate and regular rhythm Skin + incision (incision dry and clean) Neurologic CN's II-XI intact bilaterally and moves all extremities Psychiatric A+Ox3, euthymic affect Discharge Data Allergies Allergy/AdvReac Type Severity Reaction Status Date / Time atorvastatin AdvReac Intermediate Muscle Verified 09/19/24 13:08 aches bupropion [From Wellbutrin] AdvReac Intermediate Vivid Verified 09/19/24 13:08 dreams, hallucinations Zohylcm-JUR-CqP Reductase AdvReac Intermediate Body aches Verified 09/19/24 13:08 Inhibitor [Krlbngj-Rbq-Hjk Reductase Inhibitor] Consultations 09/19/24 18:52 Consult Laundry Tub Maker Routine 09/20/24 10:35 Consult Urology Routine Procedures Performed Operation Date: 09/19/24 14:50 Actual Procedures p Left Transcarotid Artery Revascularization(Left) - Sonia Scott MD Ordered Studies 09/19/24 US EV guide vascular access Routine 09/19/24 07:26 EV angio carotid cerv LT Routine 09/20/24 10:35 US arterial duplex UE RT Stat Hospital Course (1) Carotid artery stenosis, symptomatic: Patient pod #1 from left tcar. Doing well with no neuro deficits. Will d/c today (2) Acute blood loss as cause of postoperative anemia: Hgb 8.5 post op from blood loss during surgery and post op and dilutional effect. No active bleeding appreciated. Will check as an outpatient. (3) Urinary retention: Patient had post op urinary retention. Urology consulted and patient sent home with petty and a leg bag and will follow up with Urology (4) Pseudoaneurysm of artery of upper extremity: Patient underwent duplex scan after developing arm swelling post art line removal. This showed a small pseudoaneurysm with a very small neck. Will rescan in two weeks to see if it may spontaneously seals. Total Time Total Time Spent Total Time Spent (In Minutes): x Discharge Plan Discharge Items Patient Disposition: Home - Self-Care Reason For Visit: Left Internal Carotid Artery Stenosis Discharge Diagnosis: Left internal carotid artery stenosis Activity: Per Instructions section Non-emergency contact: Surgeon Call non-emergency contact if: your temperature is above 101.5, your wound has increased redness, your wound has increased drainage and your wound pain has increased Follow-up/Referrals: Elieser Galvan MD [Physician] - Asaf Younger MD [Primary Care Provider] - Diet: Carb Consistent or DM2, Dialysis Renal and Heart Healthy Addtl Attending Provider Instructions: SPECIAL CARE INSTRUCTIONS: Diet: * You may return to previous diet. Medications: * Continue to take Aspirin, Brilinta, and statin as directed. Incision Care: * You may shower, but do not rub incision. You may let the warm soapy water run over it. Be sure to dry the incision well after bathing. * Do not shave directly over the incision until it is healed. * DO NOT IMMERSE THE INCISION IN A TUB/POOL/etc. UNTIL HEALED. Restrictions: * Do not drive for at least one week or if you are still taking any narcotic pain medication. * Do not lift anything heavier than a gallon of milk for one week after going home. Possible Complications: * Numbness - It is normal to have some numbness around the incision. Numbness can extend beyond the incision to areas of the neck, ear and face. The numbness is due to bruising of nerves during the surgery and will gradually improve over a period of months. * Hoarseness/Difficulty Speaking and Swallowing - The bruising of nerves in the neck can also cause a hoarse voice, difficulty speaking or swallowing. This may improve over time, HOWEVER, if it continues for more than a few days please contact our office ([phone]). * Excessive Swelling - There will be some swelling immediately after surgery which usually resolves within one week. If you notice that the swelling is getting worse, notify your surgeon ([phone]). * Drainage/Bleeding - If there is any drainage or bleeding, it should be a very small amount (less than a teaspoon per day). If you have excessive bleeding or drainage from the incision, call your surgeon ([phone]) right away. ACTIVATION OF EMERGENCY MEDICAL SYSTEM: Call 911, immediately, if you experience any of the following: Warning Signs and Symptoms of Stroke: * Sudden numbness or weakness of the face, arm or leg, especially on one side of the body * Sudden confusion, trouble speaking or understanding * Sudden trouble seeing in one or both eyes * Sudden trouble walking, dizziness, loss of balance or coordination * Sudden severe headache with no cause Do not delay calling 911 if you experience any warning signs or symptoms of a stroke. Delay in seeking medical attention may affect what treatments can be given to you. Risk Factors for Stroke: You can reduce your chances of stroke by working with your medical provider to adopt a healthy lifestyle. Some specific ways to lower your chance of stroke are: * If you are a smoker, now is the time to stop smoking cigarettes * If you are diabetic, improve the control of your blood sugars * Avoid excessive amounts of alcohol * Control high blood pressure * Lose weight if you are overweight * Be sure to lead an active lifestyle * Eat a healthy diet low in salt, cholesterol and fat You should know about other risk factors for stroke that you are unable to control. These include: * Age 55 years or older * Male gender * Certain racial groups: , or / * Family History of Stroke, Mini stroke or Heart Attack * Sickle Cell Disease You will be receiving a call from the Vascular Surgery Nurse after you are discharged. FOLLOW UP VISIT: It is important for you to keep your follow up appointments with your medical provider. Keep any scheduled doctor appointments. Call [phone] to schedule a follow up appointment if one not already scheduled. Follow up with [facility] urology. Pending Studies at Discharge: No Stand-Alone Forms: [facility], Smoking Cessation Medications and DC Order Prescriptions: Continued hydralazine 100 mg tablet 100 mg PO TID Qty: 270 3RF amlodipine [Norvasc] 5 mg tablet 5 mg PO BID Qty: 180 3RF finasteride 5 mg tablet 5 mg PO QAM Qty: 90 3RF gabapentin 100 mg capsule 100 mg PO TID sertraline 100 mg tablet 100 mg PO PM rosuvastatin 20 mg tablet 20 mg PO QAM sevelamer HCl 800 mg tablet 800 mg PO TID Rx Instructions: must administer with a meal/food polyethylene glycol 3350 [Miralax] 17 gram/dose powder 17 g PO Q OTHER DAY glipizide 5 mg tablet 10 mg PO QAM Rx Instructions: extended release carvedilol [Coreg] 25 mg tablet 25 mg PO BID fenofibrate micronized 43 mg capsule 43 mg PO PM sertraline 50 mg tablet 50 mg PO PM warfarin 3 mg tablet 1.5 - 3 mg PO UD Hold Instructions: Resume on 09/20/24. Rx Instructions: take 1 tablet by mouth tuesday, tuesday, Tuesday, take 1/2 tablet all other days insulin aspart U-100 [Novolog FlexPen U-100 Insulin] 100 unit/mL (3 mL) insulin pen 3 unit SUBCUT BID insulin glargine [Lantus Solostar U-100 Insulin] 100 unit/mL (3 mL) insulin pen 12 unit SUBCUT HS Retacrit 40,000 unit/mL solution 40,000 unit subcut MONTHLY bumetanide 2 mg tablet 4 mg PO BID sodium bicarbonate 650 mg tablet 650 mg PO BID aspirin 81 mg Tablet,Delayed Release (Dr/Ec) 81 mg PO PM isosorbide mononitrate 60 mg tablet extended release 24 hr 60 mg PO QAM tamsulosin 0.4 mg capsule 0.4 mg PO QAM Brilinta 90 mg tablet 90 mg PO BID Qty: 60 11RF Discharge Orders: Discharge Order (Routine); Ordered 09/20/24 Ordered By: Sonia Scott Admission Data Admit Date/Time: 09/19/24 12:40 Attending Provider: Sonia Scott Admit Provider: Sonia Scott Primary Care Provider: Asaf Younger Other Providers: Franky Becerril; Niranjan Sotelo; Edwar Trejo; Cy Zarate; Mona Clement; Rodrigue Terrell; Ashwini Mckeon; Edgar Abraham; Chari Chahal; Terence Bazzi; Michela Benites; Tiarra Delaney; Elieser Galvan; Shelby Perea; Linette Argueta; Bj Raymundo
[2024-09-20 15:35] VITALS: BP 122/51
[2024-09-20] MEDS ORDERED: LANTUS PER UNIT CHARGE SC SCH (21:00)
== END 2024-09-20 16:45 | disposition home or self-care (01) | DRG 34 ==
LOC: ASU 12:39 → 1E 12:40
PROC: EV.TCAR (2024-09-19 14:50)

== ENCOUNTER 2024-09-25 19:56 | Inpatient (IN) ==
[2024-09-25] MEDS: OPTIRAY 320 125ml IV ONE (20:51)
[2024-09-25 21:00] LABS: INR 1.8 (0.9-1.1); Partial Thromboplastin Ratio 1.4; Partial Thromboplastin Time 39 Seconds (21-31); Prothrombin Time 18.2 Seconds (9.0-12.0)
[2024-09-25 21:01] LABS: Hematocrit (blood only) 23.3 % (42.0-52.0); Hemoglobin 7.7 g/dl (14.0-18.0); Mean Corpuscular Hemoglobin 29.8 pg (25.0-34.0); Mean Corpuscular Volume 90.3 fL (80.0-100.0); Mean Platelet Volume 10.1 fL (9.4-12.4); Platelet Count 229 K/uL (130-400); RDW Coefficient of Variation 13.2 % (11.5-14.5); RDW Standard Deviation 43.5 fL (36.4-46.3); Red Blood Count 2.58 M/uL (4.70-6.10); White Blood Count 7.38 K/ul (4.8-10.8)
[2024-09-25 21:11] LABS: Albumin Level 3.4 gm/dl (3.4-5.0); Anion Gap 12 (3-11); Bilirubin,Total 0.4 mg/dl (0.2-1.0); Calcium 8.7 mg/dl (8.6-10.3); Carbon Dioxide 25 mmol/L (21-32); Chloride 98 mmol/L (98-107); Magnesium 1.8 mg/dl (1.7-2.4); Potassium 3.5 mmol/L (3.5-5.1); Sodium 135 mmol/L (136-145)
--- NOTE | 2024-09-25 21:22 | CT Scan Report ---
Exam(s): CT HEAD Without Contrast EXAM: CT Head Without Intravenous Contrast CLINICAL HISTORY: Reason for exam: Neuro deficit, acute, stroke suspected. TECHNIQUE: Axial computed tomography images of the head/brain without intravenous contrast. CTDI is 37.22 mGy and DLP is 546.36 mGy-cm. Automated exposure control was utilized for the study. A dose lowering technique was utilized adhering to the principles of ALARA. COMPARISON: No relevant prior studies available. FINDINGS: Brain: Chronic periventricular ischemic demyelination changes seen due to small vessel disease. No hemorrhage. Ventricles: Unremarkable. No ventriculomegaly. Bones/joints: Unremarkable. No acute fracture. Soft tissues: Unremarkable. Sinuses: Unremarkable as visualized. No acute sinusitis. Mastoid air cells: Unremarkable as visualized. No mastoid effusion. IMPRESSION: No acute findings in the head/brain. Communications: Call Doctor Stroke Electronically signed by: Kermit Billings MD 09/25/24 21:21 PM
--- NOTE | 2024-09-25 21:23 | CT Scan Report ---
Exam(s): CTA HEAD With Contrast IV Amt: 119ml optiray 320 EXAM: CT Angiography Head With Intravenous Contrast CLINICAL HISTORY: Reason for exam: stroke smptoms. TECHNIQUE: Axial computed tomographic angiography images of the head with intravenous contrast. CTDI is 71.15 mGy and DLP is 1094.47 mGy-cm. Automated exposure control was utilized for the study. A dose lowering technique was utilized adhering to the principles of ALARA. MIP reconstructed images were created and reviewed. CONTRAST: Patient received 119ml optiray 320 of IV contrast COMPARISON: No relevant prior studies available. FINDINGS: Right internal carotid artery: No acute findings. Intracranial segment is patent with no significant stenosis. No aneurysm. Right anterior cerebral artery: Unremarkable. No occlusion or significant stenosis. No aneurysm. Right middle cerebral artery: Unremarkable. No occlusion or significant stenosis. No aneurysm. Right posterior cerebral artery: Unremarkable. No occlusion or significant stenosis. No aneurysm. Right vertebral artery: Right vertebral artery is hypoplastic. Left internal carotid artery: No acute findings. Intracranial segment is patent with no significant stenosis. No aneurysm. Left anterior cerebral artery: Unremarkable. No occlusion or significant stenosis. No aneurysm. Left middle cerebral artery: Unremarkable. No occlusion or significant stenosis. No aneurysm. Left posterior cerebral artery: Unremarkable. No occlusion or significant stenosis. No aneurysm. Left vertebral artery: Unremarkable as visualized. Basilar artery: Unremarkable. No occlusion or significant stenosis. No aneurysm. IMPRESSION: No acute findings in the arteries of the head/brain. Communications: Call Doctor Stroke Electronically signed by: Kermit Billings MD 09/25/24 21:22 PM
[2024-09-25 21:28] LABS: Alanine Aminotransferase 3 U/L (7-52); Albumin Globulin Ratio 1.2 (0.9-2); Alkaline Phosphatase 54 U/L (34-104); Aspartate Aminotransferase 25 U/L (13-39); BUN Creatinine Ratio 12.1 (10-20); Blood Urea Nitrogen 84 mg/dl (6-23); Globulin 2.8 gm/dl (2.5-4.0); Glucose 216 mg/dl (70-99(Fasting)); Total Protein 6.2 gm/dl (6.0-8.3); Troponin I High Sensitivity 2486.5 pg/ml (0-20)
--- NOTE | 2024-09-25 21:28 | CT Scan Report ---
Exam(s): CTA NECK With Contrast IV Amt: 119 ml opti 320 EXAM: CT Angiography Neck With Intravenous Contrast CLINICAL HISTORY: Reason for exam: stroke symtpsoms. TECHNIQUE: Routine carotid CT angiography protocol was performed with intravenous contrast. NASCET criteria using the distal ICAs for comparison were used for evaluation of stenoses. CTDI is 71.15 mGy and DLP is 1094.47 mGy-cm. Automated exposure control was utilized for the study. A dose lowering technique was utilized adhering to the principles of ALARA. MIP reconstructed images were created and reviewed. CONTRAST: Patient received 119 ml opti 320 of IV contrast COMPARISON: None. FINDINGS: VASCULATURE: Right common carotid artery: Unremarkable. No occlusion or significant stenosis. No dissection. Right internal carotid artery: Severe atherosclerotic calcification seen at the region of the right internal carotid artery causing more than 80% luminal narrowing. Right external carotid artery: Unremarkable. No occlusion. Right vertebral artery: Unremarkable. No occlusion or significant stenosis. No dissection. Left common carotid artery: There is patent vascular stent seen in the left common carotid and proximal left internal carotid artery. Left internal carotid artery: Patent vascular stent seen. Left external carotid artery: Unremarkable. No occlusion. Left vertebral artery: Unremarkable. No occlusion or significant stenosis. No dissection. NECK: Bones/joints: Unremarkable. No acute fracture. Soft tissues: Unremarkable. Lung apices: Mosaic groundglass densities seen in the right upper lobe. CAROTID STENOSIS REFERENCE USING NASCET CRITERIA: % ICA stenosis = (1 - narrowest ICA diameter/diameter of distal cervical ICA) x 100. Mild - <50% stenosis. Moderate - 50-69% stenosis. Severe - 70-94% stenosis. Near occlusion - 95-99% stenosis. Occluded - 100% stenosis. IMPRESSION: 1. Hemodynamically significant stenosis at the region of the right cervical internal carotid artery. This finding was discussed with the physician taking care of the patient at 9:27 PM eastern standard time 2. The right vertebral artery is hypoplastic. Communications: Call Doctor Stroke Electronically signed by: Kermit Billings MD 09/25/24 21:27 PM
--- NOTE | 2024-09-25 22:44 | Emergency Department Note ---
History of Present Illness General Chief complaint: Neuro Symptoms/Deficit Stated complaint: REF BY EYE DOC,OPTICAL STROKE Time Seen by Provider: 09/25/24 20:19 Source: patient and family () History of Present Illness Provider complaint: Strokelike symptoms Maximum Pain Intensity: 9 69-year-old male presents emergency department for strokelike symptoms. 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 Patient states he started having decreased vision in his right eye on Tuesday. 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 Patient is on Coumadin. No falls or traumas with the patient states he did recently have an endarterectomy performed by Dr. Scott. Patient is end-stage renal disease on peritoneal dialysis. Patient denies any abdominal pain chest pain difficulty breathing or headache. No falls or traumas. Home Medications Medication Instructions Recorded Confirmed Type gabapentin 100 mg capsule 100 mg PO TID 03/26/20 09/25/24 History sertraline 100 mg tablet 100 mg PO PM 05/22/21 09/25/24 History fenofibrate micronized 43 mg 43 mg PO PM 08/06/22 09/25/24 History capsule rosuvastatin 20 mg tablet 20 mg PO QAM 11/25/22 09/25/24 History carvedilol 25 mg tablet (Coreg) 25 mg PO BID 12/31/22 09/25/24 History sertraline 50 mg tablet 50 mg PO PM 09/22/23 09/25/24 History warfarin 3 mg tablet 1.5 - 3 mg PO UD 09/22/23 09/25/24 History hydralazine 100 mg tablet 100 mg PO TID #270 tabs 11/17/23 09/25/24 Rx glipizide 5 mg tablet 10 mg PO QAM 01/06/24 09/25/24 History aspirin 81 mg tablet,delayed 81 mg PO PM 02/24/24 09/25/24 History release isosorbide mononitrate 60 mg 60 mg PO QAM 02/24/24 09/25/24 History tablet,extended release 24 hr amlodipine 5 mg tablet (Norvasc) 5 mg PO BID #180 tabs 03/16/24 09/25/24 Rx polyethylene glycol 3350 17 17 g PO Q OTHER DAY 04/23/24 09/25/24 History gram/dose oral powder (Miralax) sevelamer HCl 800 mg tablet 800 mg PO TID 04/23/24 09/25/24 History finasteride 5 mg tablet 5 mg PO QAM #90 tabs 07/11/24 09/25/24 Rx bumetanide 2 mg tablet 4 mg PO BID 09/06/24 09/25/24 History epoetin brenda-epbx 40,000 unit/mL 40,000 unit subcut MONTHLY 09/06/24 09/25/24 History injection solution (Retacrit) insulin aspart U-100 100 unit/mL 3 unit subcut BID 09/06/24 09/25/24 History (3 mL) subcutaneous pen (Novolog FlexPen U-100 Insulin aspart) insulin glargine 100 unit/mL (3 12 unit subcut HS 09/06/24 09/25/24 History mL) subcutaneous pen (Lantus Solostar U-100 Insulin) sodium bicarbonate 650 mg tablet 650 mg PO BID 09/06/24 09/25/24 History tamsulosin 0.4 mg capsule 0.4 mg PO QAM 09/12/24 09/25/24 History ticagrelor 90 mg tablet (Brilinta) 90 mg PO BID #60 tabs 09/18/24 09/25/24 Rx Allergies Allergy/AdvReac Type Severity Reaction Status Date / Time atorvastatin AdvReac Intermediate Muscle Verified 09/25/24 22:07 aches bupropion [From Wellbutrin] AdvReac Intermediate Vivid Verified 09/25/24 22:07 dreams, hallucinations Ejyfnjg-UXZ-LeX Reductase AdvReac Intermediate Body aches Verified 09/25/24 22:07 Inhibitor [Mftodqy-Lqy-Ngz Reductase Inhibitor] Past Med/Surg History Problem List (Updated 09/25/24 @ 22:54 by Connor Garcia MD) Stroke-like symptoms (Acute) Pseudoaneurysm of artery of upper extremity Acute blood loss as cause of postoperative anemia Urinary retention Carotid artery stenosis, symptomatic Central artery occlusion of retina (Acute) Peritoneal dialysis catheter in place Pulmonary edema End-stage renal disease needing dialysis Dyslipidemia, goal LDL below 70 Lower urinary tract symptoms (LUTS) Encounter for pre-operative examination Complex renal cyst Chronic diastolic CHF (congestive heart failure) Left renal mass Under surveillance SOB (shortness of breath) 08/06/22 Anemia due to chronic kidney disease Baseline hgb 11-12 range per chart review Vitamin D deficiency Depression, unspecified Postlaminectomy syndrome Right foot drop PVD (peripheral vascular disease) Diabetes mellitus with neuropathy Obesity (Chronic) Statin intolerance (Chronic) Hyperlipidemia (Chronic) HTN (hypertension) (Chronic) Guillain Jean Baptiste syndrome 2012 Medical History Peritoneal dialysis catheter in situ PD every day - follows with neph dr. 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 > 50% stenosis external carotid arteries bilaterally admit to [facility]/ stroke like symptoms- d/c 09/09/24 Limb alert care status left arm Presence of arteriovenous fistula for hemodialysis Left Wrist Arteriovenous Fistula Creation BPH (benign prostatic hyperplasia) Foot drop, right Hx of cardiac arrhythmia reason pt had heart cath several yrs ago, unsure exactly what it was, controlled now per pt CHF (congestive heart failure) no longer follows with Dr. Marshall in [place] Left renal mass Vitamin D deficiency Anemia Depression, unspecified HTN (hypertension) controlled, stable per pt Hx of Guillain-Clarkson syndrome 2012 Diabetes mellitus NIDDM Dyslipidemia End stage renal disease PD every day - follows with neph dr. 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 Marshall/[place] - no longer sees Hx of colonoscopy Hx of bilateral hip replacements History of tonsillectomy Family History Brother Cancer Father Hypertension Diabetes Heart disease Dementia Mother Diabetes Social History Smoking Status: Never smoker Tobacco Type: Cigarettes Second Hand Exposure: No; Do You Dip or Chew Tobacco: No; Hx Alcohol Use: No Hx Substance Use: No Preferred Language: R[place] Communication Ability: Effective Visual Impairment: Limited Hearing Ability: Normal Monogram And Letter Paster Required: No Beliefs That Will Affect Care: None marital status: / Current Living Situation: Family Current Living Situation Comment: with daughter current occupational status: retired Feels Safe at Home: Yes Diet: low salt caffeine: Yes (1 coffee daily) Physical Activity Frequency: Does not Exercise Do you think of yourself as: straight/heterosexual Gender Identity: Male Assistive Devices: Cane and Walker Physical Exam Vital Signs Vital Signs - 24 hr 09/25/24 20:07 09/25/24 20:26 09/25/24 20:31 Temperature 36.4 C L Temperature Source Temporal Artery Scan Pulse Rate 69 68 Pulse Rate [Right Finger] 66 Respiratory Rate 18 18 Respiratory Effort / Characteristics Non-Labored Spontaneous Non-Labored Spontaneous Respiratory Depth Normal Normal Blood Pressure 74/41 L Blood Pressure [Right Arm] 176/89 H Blood Pressure Mean 52 Blood Pressure Mean [Right Arm] 118 Pulse Oximetry 97 94 Oxygen Delivery Method Room Air Room Air Sepsis Recent Fever Within 48 Hours No Sepsis New/Unexplained Change in Mental Status No Sepsis Action Taken by Nursing No Action Required 09/25/24 22:00 Temperature Temperature Source Pulse Rate Pulse Rate [Right Finger] 68 Respiratory Rate 16 Respiratory Effort / Characteristics Non-Labored Spontaneous Respiratory Depth Normal Blood Pressure Blood Pressure [Right Arm] 187/56 H Blood Pressure Mean Blood Pressure Mean [Right Arm] 99 Pulse Oximetry 93 Oxygen Delivery Method Room Air Sepsis Recent Fever Within 48 Hours Sepsis New/Unexplained Change in Mental Status Sepsis Action Taken by Nursing Physical Exam GENERAL: He is oriented to person, place, and time. He appears well-developed and well-nourished. He does not appear distressed. HENT: Exam performed. - Head: Normocephalic and atraumatic. EYES: Conjunctivae and EOM are normal. Pupils are dilated and reactive to light. NECK: Normal range of motion. Neck supple. Ecchymosis over the left neck. Incision is clean and dry. CV: Normal rate, regular rhythm, normal heart sounds and intact distal pulses. There is no peripheral edema. Palpable radial pulses bue. PULM/CHEST: Effort normal and breath sounds normal. No respiratory distress. No stridor. He has no wheezes. He has no rales. ABD: The abdomen is soft. Peritoneal dialysis catheter in place. NEURO: Motor and sensation grossly intact. SKIN: Ecchymosis over the patient's anterior abdominal wall left neck bilateral upper extremities and chest. Course Course 2019: The patient was evaluated in room A9. A complete history and physical exam was performed Cardiac monitoring: An order was placed for continuous cardiac monitoring. The monitor shows a rate of 70 with sinus rhythm interpreted by me Patient's symptoms began greater than 48 hours ago and is on Coumadin, no code stroke called on the patient. External medical records reviewed. Patient was seen in the emergency department September 06, 2024. At that time the patient had lost vision in his left eye. Patient was seen CAT scans were completed and [facility]. Patient was discharged on September 09, 2024. On September 19, 2024 the patient was operated on by Dr. Scott and had a left transcarotid artery revascularization. Patient was discharged on September 20, 2024. 2134: Vital signs stable. Labs show hemoglobin of 7.7. INR 1.8. Creatinine 6.97. Troponin 2486. Patient not reporting any chest pain or difficulty breathing. Imaging shows no ICH. CTA of the neck shows hemodynamically significant stenosis of the region of the right cervical internal carotid artery. [facility]. Administered Medications Discontinued Medications Ioversol (Optiray 320 125ml) 119 ml IV ONCE ONE Stop: 09/25/24 20:51 Last Admin: 09/25/24 20:51 Dose: 119 ml Documented By: CONNER Medical Decision Making Laboratory Data Attestation: I reviewed the patient's lab results. 09/25/24 20:29 09/25/24 20:29 Lab Results 09/25/24 09/25/24 Range/Units 20:29 20:59 WBC 7.38 (4.8-10.8) K/ul RBC 2.58 L (4.70-6.10) M/uL Hgb 7.7 L (14.0-18.0) g/dl Hct 23.3 L (42.0-52.0) % MCV 90.3 (80.0-100.0) fL MCH 29.8 (25.0-34.0) pg MCHC 33.0 (32.0-36.0) g/dL RDW Std Deviation 43.5 (36.4-46.3) fL RDW Coeff of Severiano 13.2 (11.5-14.5) % Plt Count 229 (130-400) K/uL MPV 10.1 (9.4-12.4) fL PT 18.2 H (9.0-12.0) Seconds INR 1.8 H (0.9-1.1) APTT 39 H (21-31) Seconds PTT Ratio 1.4 Sodium 135 L (136-145) mmol/L Potassium 3.5 (3.5-5.1) mmol/L Chloride 98 (98-107) mmol/L Carbon Dioxide 25 (21-32) mmol/L Anion Gap 12 H (3-11) BUN 84 H (6-23) mg/dl Creatinine 6.97 H* (0.6-1.4) mg/dl Est Cr Clr Drug Dosing Not Reportable eGFR 7.88 BUN/Creatinine Ratio 12.1 (10-20) Glucose 216 H (70-99(Fasting)) mg/dl Calcium 8.7 (8.6-10.3) mg/dl Magnesium 1.8 (1.7-2.4) mg/dl Total Bilirubin 0.4 (0.2-1.0) mg/dl AST 25 (13-39) U/L ALT 3 L (7-52) U/L Alkaline Phosphatase 54 (34-104) U/L Troponin I High Sens 2486.5 H* (0-20) pg/ml Total Protein 6.2 (6.0-8.3) gm/dl Albumin 3.4 (3.4-5.0) gm/dl Globulin 2.8 (2.5-4.0) gm/dl Albumin/Globulin Ratio 1.2 (0.9-2) Blood Type A Positive Antibody Screen NEGATIVE Imaging Data Radiologist's Impression: Head CT 09/25/24 20:18 CR Exam(s): CT HEAD Without Contrast EXAM: CT Head Without Intravenous Contrast CLINICAL HISTORY: Reason for exam: Neuro deficit, acute, stroke suspected. TECHNIQUE: Axial computed tomography images of the head/brain without intravenous contrast. CTDI is 37.22 mGy and DLP is 546.36 mGy-cm. Automated exposure control was utilized for the study. A dose lowering technique was utilized adhering to the principles of ALARA. COMPARISON: No relevant prior studies available. FINDINGS: Brain: Chronic periventricular ischemic demyelination changes seen due to small vessel disease. No hemorrhage. Ventricles: Unremarkable. No ventriculomegaly. Bones/joints: Unremarkable. No acute fracture. Soft tissues: Unremarkable. Sinuses: Unremarkable as visualized. No acute sinusitis. Mastoid air cells: Unremarkable as visualized. No mastoid effusion. IMPRESSION: No acute findings in the head/brain. Communications: Call Doctor Stroke Electronically signed by: Kermit Billings MD 09/25/24 21:21 PM Neck CTA 09/25/24 20:22 CR Exam(s): CTA NECK With Contrast IV Amt: 119 ml opti 320 EXAM: CT Angiography Neck With Intravenous Contrast CLINICAL HISTORY: Reason for exam: stroke symtpsoms. TECHNIQUE: Routine carotid CT angiography protocol was performed with intravenous contrast. NASCET criteria using the distal ICAs for comparison were used for evaluation of stenoses. CTDI is 71.15 mGy and DLP is 1094.47 mGy-cm. Automated exposure control was utilized for the study. A dose lowering technique was utilized adhering to the principles of ALARA. MIP reconstructed images were created and reviewed. CONTRAST: Patient received 119 ml opti 320 of IV contrast COMPARISON: None. FINDINGS: VASCULATURE: Right common carotid artery: Unremarkable. No occlusion or significant stenosis. No dissection. Right internal carotid artery: Severe atherosclerotic calcification seen at the region of the right internal carotid artery causing more than 80% luminal narrowing. Right external carotid artery: Unremarkable. No occlusion. Right vertebral artery: Unremarkable. No occlusion or significant stenosis. No dissection. Left common carotid artery: There is patent vascular stent seen in the left common carotid and proximal left internal carotid artery. Left internal carotid artery: Patent vascular stent seen. Left external carotid artery: Unremarkable. No occlusion. Left vertebral artery: Unremarkable. No occlusion or significant stenosis. No dissection. NECK: Bones/joints: Unremarkable. No acute fracture. Soft tissues: Unremarkable. Lung apices: Mosaic groundglass densities seen in the right upper lobe. CAROTID STENOSIS REFERENCE USING NASCET CRITERIA: % ICA stenosis = (1 - narrowest ICA diameter/diameter of distal cervical ICA) x 100. Mild - <50% stenosis. Moderate - 50-69% stenosis. Severe - 70-94% stenosis. Near occlusion - 95-99% stenosis. Occluded - 100% stenosis. IMPRESSION: 1. Hemodynamically significant stenosis at the region of the right cervical internal carotid artery. This finding was discussed with the physician taking care of the patient at 9:27 PM eastern standard time 2. The right vertebral artery is hypoplastic. Communications: Call Doctor Stroke Electronically signed by: Kermit Billings MD 09/25/24 21:27 PM Head CTA 09/25/24 20:23 CR Exam(s): CTA HEAD With Contrast IV Amt: 119ml optiray 320 EXAM: CT Angiography Head With Intravenous Contrast CLINICAL HISTORY: Reason for exam: stroke smptoms. TECHNIQUE: Axial computed tomographic angiography images of the head with intravenous contrast. CTDI is 71.15 mGy and DLP is 1094.47 mGy-cm. Automated exposure control was utilized for the study. A dose lowering technique was utilized adhering to the principles of ALARA. MIP reconstructed images were created and reviewed. CONTRAST: Patient received 119ml optiray 320 of IV contrast COMPARISON: No relevant prior studies available. FINDINGS: Right internal carotid artery: No acute findings. Intracranial segment is patent with no significant stenosis. No aneurysm. Right anterior cerebral artery: Unremarkable. No occlusion or significant stenosis. No aneurysm. Right middle cerebral artery: Unremarkable. No occlusion or significant stenosis. No aneurysm. Right posterior cerebral artery: Unremarkable. No occlusion or significant stenosis. No aneurysm. Right vertebral artery: Right vertebral artery is hypoplastic. Left internal carotid artery: No acute findings. Intracranial segment is patent with no significant stenosis. No aneurysm. Left anterior cerebral artery: Unremarkable. No occlusion or significant stenosis. No aneurysm. Left middle cerebral artery: Unremarkable. No occlusion or significant stenosis. No aneurysm. Left posterior cerebral artery: Unremarkable. No occlusion or significant stenosis. No aneurysm. Left vertebral artery: Unremarkable as visualized. Basilar artery: Unremarkable. No occlusion or significant stenosis. No aneurysm. IMPRESSION: No acute findings in the arteries of the head/brain. Communications: Call Doctor Stroke Electronically signed by: Kermit Billings MD 09/25/24 21:22 PM ECG Data Attestation: I personally reviewed and interpreted this ECG as follows: Additional Comments: Sinus rhythm with a rate of 71. ID [id number] QRS 134 QTc 484. T wave inversion leads I II aVL V5 V6. No significant change from the EKG on September 06, 2024. [facility] Narrative 2019: The patient was evaluated in room A9. A complete history and physical exam was performed Cardiac monitoring: An order was placed for continuous cardiac monitoring. The monitor shows a rate of 70 with sinus rhythm interpreted by me Patient's symptoms began greater than 48 hours ago and is on Coumadin, no code stroke called on the patient. External medical records reviewed. Patient was seen in the emergency department September 06, 2024. At that time the patient had lost vision in his left eye. Patient was seen CAT scans were completed and [facility]. Patient was discharged on September 09, 2024. On September 19, 2024 the patient was operated on by Dr. Scott and had a left transcarotid artery revascularization. Patient was discharged on September 20, 2024. 2134: Vital signs stable. Labs show hemoglobin of 7.7. INR 1.8. Creatinine 6.97. Troponin 2486. Patient not reporting any chest pain or difficulty breathing. Imaging shows no ICH. CTA of the neck shows hemodynamically significant stenosis of the region of the right cervical internal carotid artery. [facility] Impression & Plan Stroke-like symptoms Discharge Plan Visit Data Chief Complaint: Neuro Symptoms/Deficit Stated Complaint: REF BY EYE DOC,OPTICAL STROKE ED Provider: Connor Garcia Discharge Problem: Stroke-like symptoms Patient Disposition: Admitted As Inpatient Forms Stand Alone Forms: My [facility] Prescriptions Prescriptions: No Action hydralazine 100 mg tablet 100 mg PO TID Qty: 270 3RF amlodipine [Norvasc] 5 mg tablet 5 mg PO BID Qty: 180 3RF finasteride 5 mg tablet 5 mg PO QAM Qty: 90 3RF gabapentin 100 mg capsule 100 mg PO TID sertraline 100 mg tablet 100 mg PO PM rosuvastatin 20 mg tablet 20 mg PO QAM sevelamer HCl 800 mg tablet 800 mg PO TID Rx Instructions: must administer with a meal/food polyethylene glycol 3350 [Miralax] 17 gram/dose powder 17 g PO Q OTHER DAY glipizide 5 mg tablet 10 mg PO QAM Rx Instructions: extended release carvedilol [Coreg] 25 mg tablet 25 mg PO BID fenofibrate micronized 43 mg capsule 43 mg PO PM sertraline 50 mg tablet 50 mg PO PM warfarin 3 mg tablet 1.5 - 3 mg PO UD Hold Instructions: Resume on 09/20/24. Rx Instructions: take 1 tablet by mouth tuesday, tuesday, Tuesday, take 1/2 tablet all other days insulin aspart U-100 [Novolog FlexPen U-100 Insulin] 100 unit/mL (3 mL) insulin pen 3 unit SUBCUT BID insulin glargine [Lantus Solostar U-100 Insulin] 100 unit/mL (3 mL) insulin pen 12 unit SUBCUT HS Retacrit 40,000 unit/mL solution 40,000 unit subcut MONTHLY bumetanide 2 mg tablet 4 mg PO BID sodium bicarbonate 650 mg tablet 650 mg PO BID aspirin 81 mg Tablet,Delayed Release (Dr/Ec) 81 mg PO PM isosorbide mononitrate 60 mg tablet extended release 24 hr 60 mg PO QAM tamsulosin 0.4 mg capsule 0.4 mg PO QAM Brilinta 90 mg tablet 90 mg PO BID Qty: 60 11RF Referrals Referrals: Asaf Younger MD [Primary Care Provider] -
--- NOTE | 2024-09-26 01:57 | History & Physical Report ---
Date of Service September 26, 2024 Assessment & Plan (1) Stroke-like symptoms: Plan: 69-year-old male with past medical history significant for end-stage renal disease on peritoneal dialysis, hypertension, hyperlipidemia, history of PE on chronic Coumadin, type 2 diabetes, peripheral vascular disease, CHF presents with right ocular stroke. Patient was admitted on 08/30/2024 with left eye vision loss , outpatient ophthalmology found to have central artery occlusion and patient was admitted to hospital. Imaging studies showed high-grade stenosis of the bilateral internal and external carotid arteries. MRI showed chronic small vessel disease otherwise unremarkable. Patient was already on aspirin and Plavix as added. On 09/19/2024 patient had left transcarotid artery revascularization and there is a plan to do on the right side . Patient was discharged on aspirin and Brilinta and not to stop until 30 days after carotid procedure. Last Tuesday patient noticed some vision change in the right eye and said it was getting more blurred on Tuesday. He went to [facility] on Tuesday and was told that he had eye right ocular stroke and came to the ER. He says from his left eye currently could not see anything. Right eye could see something but could not read and and also very blurry. Denies any pain in the eyes. No headache. Sometimes feels dizzy. Has some cough. No runny nose. Has some sore throat. Denies any chest pain. But having some shortness of breath on exertion. Appetite is okay. No difficulty swallowing. No nausea. No abdominal pain. Moves bowels okay. Makes urine. Denies any blood in stools or black stools. Hemodynamics are okay. Strokelike symptoms Right ocular stroke Recently had left ocular stroke Had bilateral internal and external carotid artery critical stenosis Status post left transcarotid revascularization on 09/19/24 On aspirin, Brilinta and statin, CT head okay. CTA head okay CTA neck shows hemodynamically significant stenosis in the region of the right cervical internal carotid artery. Will do stroke protocol with MRI scan, echo Neurochecks Telemetry Neurology consult in a.m. further recommendation Vascular surgery consult Non-ST elevated MO Troponin 2486 Denies chest pain EKG has some ST depressions in lateral leads Has shortness on exertion Patient has history of PE on Coumadin INR is 1.8 today Will start on low-dose IV heparin. Hold Coumadin for now Will follow echo. Will follow serial cardiac enzymes. N.p.o. Will also follow CT chest as has shortness of breath on exertion Cardiac consult for further recommendation History of PE Anticoagulation as above End-stage renal disease On peritoneal dialysis Continue home [facility] consult Anemia Hemoglobin 7.7 Hemoglobin 8.5 recently Usually seems to be 9-10 range Will check stool for Hemoccult Iron studies, vitamin B12 folate levels Close monitor the labs Diabetes Hold glipizide and home Lantus Lantus 5 daily and sliding scale Close monitor Hypertension On amlodipine, hydralazine, Imdur and Coreg Will monitor Hyperlipidemia On statin and fenofibrate BPH On finasteride and Flomax Monitor for urinary retention Depression On Zoloft DVT prophylaxis On IV heparin. Monitor h and h Disposition Telemetry Full code. History of Present Illness Chief Complaint: Right ocular stroke Primary Care Provider: Asaf Younger MD 69-year-old male with past medical history significant for end-stage renal disease on peritoneal dialysis, hypertension, hyperlipidemia, history of PE on chronic Coumadin, type 2 diabetes, peripheral vascular disease, CHF presents with right ocular stroke. Patient was admitted on 08/30/2024 with left eye vision loss , outpatient ophthalmology found to have central artery occlusion and patient was admitted to hospital. Imaging studies showed high-grade stenosis of the bilateral internal and external carotid arteries. MRI showed chronic small vessel disease otherwise unremarkable. Patient was already on aspirin and Plavix as added. On 09/19/2024 patient had left transcarotid artery revascularization and there is a plan to do on the right side . Patient was discharged on aspirin and Brilinta and not to stop until 30 days after carotid procedure. Last Tuesday patient noticed some vision change in the right eye and said it was getting more blurred on Tuesday. He went to [facility] on Tuesday and was told that he had eye right ocular stroke and came to the ER. He says from his left eye currently could not see anything. Right eye could see something but could not read and and also very blurry. Denies any pain in the eyes. No headache. Sometimes feels dizzy. Has some cough. No runny nose. H as some sore throat. Denies any chest pain. But having some shortness of breath on exertion. Appetite is okay. No difficulty swallowing. No nausea. No abdominal pain. Moves bowels okay. Makes urine. Denies any blood in stools or black stools. Hemodynamics are okay. Past medical history. As mentioned above Past surgical history. EGD. Right foot surgery. Lumbar back surgery. Heart catheterization. Colonoscopy. Bilateral hip replacement with history of tonsillectomy. Social history. No smoking. No alcohol. No drug use. Family history. Father had hypertension. Diabetes. Heart disease. Dementia. Mother had diabetes. Brother had cancer. Allergies Allergy/AdvReac Type Severity Reaction Status Date / Time atorvastatin AdvReac Intermediate Muscle Verified 09/25/24 22:07 aches bupropion [From Wellbutrin] AdvReac Intermediate Vivid Verified 09/25/24 22:07 dreams, hallucinations Yhzaiqm-GLM-[id number] Reductase AdvReac Intermediate Body aches Verified 09/25/24 22:07 Inhibitor [Adczkxd-Nlq-Rll Reductase Inhibitor] Home Medications Medication Instructions Recorded Confirmed Type gabapentin 100 mg capsule 100 mg PO TID 03/26/20 09/25/24 History sertraline 100 mg tablet 100 mg PO PM 05/22/21 09/25/24 History fenofibrate micronized 43 mg 43 mg PO PM 08/06/22 09/25/24 History capsule rosuvastatin 20 mg tablet 20 mg PO QAM 11/25/22 09/25/24 History carvedilol 25 mg tablet (Coreg) 25 mg PO BID 12/31/22 09/25/24 History sertraline 50 mg tablet 50 mg PO PM 09/22/23 09/25/24 History warfarin 3 mg tablet 1.5 - 3 mg PO UD 09/22/23 09/25/24 History hydralazine 100 mg tablet 100 mg PO TID #270 tabs 11/17/23 09/25/24 Rx glipizide 5 mg tablet 10 mg PO QAM 01/06/24 09/25/24 History aspirin 81 mg tablet,delayed 81 mg PO PM 02/24/24 09/25/24 History release isosorbide mononitrate 60 mg 60 mg PO QAM 02/24/24 09/25/24 History tablet,extended release 24 hr amlodipine 5 mg tablet (Norvasc) 5 mg PO BID #180 tabs 03/16/24 09/25/24 Rx polyethylene glycol 3350 17 17 g PO Q OTHER DAY 04/23/24 09/25/24 History gram/dose oral powder (Miralax) sevelamer HCl 800 mg tablet 800 mg PO TID 04/23/24 09/25/24 History finasteride 5 mg tablet 5 mg PO QAM #90 tabs 07/11/24 09/25/24 Rx bumetanide 2 mg tablet 4 mg PO BID 09/06/24 09/25/24 History epoetin brenda-epbx 40,000 unit/mL 40,000 unit subcut MONTHLY 09/06/24 09/25/24 History injection solution (Retacrit) insulin aspart U-100 100 unit/mL 3 unit subcut BID 09/06/24 09/25/24 History (3 mL) subcutaneous pen (Novolog FlexPen U-100 Insulin aspart) insulin glargine 100 unit/mL (3 12 unit subcut HS 09/06/24 09/25/24 History mL) subcutaneous pen (Lantus Solostar U-100 Insulin) sodium bicarbonate 650 mg tablet 650 mg PO BID 09/06/24 09/25/24 History tamsulosin 0.4 mg capsule 0.4 mg PO QAM 09/12/24 09/25/24 History ticagrelor 90 mg tablet (Brilinta) 90 mg PO BID #60 tabs 09/18/24 09/25/24 Rx Past Med/Surg History Problem List (Updated 09/25/24 @ 22:54 by Connor Garcia MD) Stroke-like symptoms (Acute) Pseudoaneurysm of artery of upper extremity Acute blood loss as cause of postoperative anemia Urinary retention Carotid artery stenosis, symptomatic Central artery occlusion of retina (Acute) Peritoneal dialysis catheter in place Pulmonary edema End-stage renal disease needing dialysis Dyslipidemia, goal LDL below 70 Lower urinary tract symptoms (LUTS) Encounter for pre-operative examination Complex renal cyst Chronic diastolic CHF (congestive heart failure) Left renal mass Under surveillance SOB (shortness of breath) 08/06/22 Anemia due to chronic kidney disease Baseline hgb 11-12 range per chart review Vitamin D deficiency Depression, unspecified Postlaminectomy syndrome Right foot drop PVD (peripheral vascular disease) Diabetes mellitus with neuropathy Obesity (Chronic) Statin intolerance (Chronic) Hyperlipidemia (Chronic) HTN (hypertension) (Chronic) Guillain Jean Baptiste syndrome 2012 Medical History Peritoneal dialysis catheter in situ PD every day - follows with neph dr. 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 > 50% stenosis external carotid arteries bilaterally admit to [facility]/ stroke like symptoms- d/c 09/09/24 Limb alert care status left arm Presence of arteriovenous fistula for hemodialysis Left Wrist Arteriovenous Fistula Creation BPH (benign prostatic hyperplasia) Foot drop, right Hx of cardiac arrhythmia reason pt had heart cath several yrs ago, unsure exactly what it was, controlled now per pt CHF (congestive heart failure) no longer follows with Dr. Marshall in [place] Left renal mass Vitamin D deficiency Anemia Depression, unspecified HTN (hypertension) controlled, stable per pt Hx of Guillain-Motley syndrome 2012 Diabetes mellitus NIDDM Dyslipidemia End stage renal disease PD every day - follows with neph dr. hidalgo Hx pulmonary embolism 2007 > warfarin for this > due to prolonged travel > later discovered has a clotting disorder, a few cousins have it as well, but pt unsure of the name of the disorder Edema RLE (chronic issue x years after nerve procedure) Surgical History History of surgery (04/24/24) Continuous Ambulatory Peritoneal Dialysis Catheter 03/15/24 and 04/24/24 History of esophagogastroduodenoscopy (EGD) Hx of foot surgery right, nerve surgery > caused foot drop History of back surgery lumbar Hx of cardiac catheterization Remote hx many yrs ago > no stents - [facility] Follows w/ Dr. Marshall/[place] - no longer sees Hx of colonoscopy Hx of bilateral hip replacements History of tonsillectomy Family History Brother Cancer Father Hypertension Diabetes Heart disease Dementia Mother Diabetes Social History Smoking Status: Never smoker Tobacco Type: Cigarettes Second Hand Exposure: No; Do You Dip or Chew Tobacco: No; Hx Alcohol Use: No Hx Substance Use: No Preferred Language: Arabic Communication Ability: Effective Visual Impairment: Limited Hearing Ability: Normal Electric Utility Lineworker Required: No Beliefs That Will Affect Care: None marital status: / Current Living Situation: Family Current Living Situation Comment: with daughter current occupational status: retired Feels Safe at Home: Yes Diet: low salt caffeine: Yes (1 coffee daily) Physical Activity Frequency: Does not Exercise Do you think of yourself as: straight/heterosexual Gender Identity: Male Assistive Devices: Walker Review of Systems Review of Systems: All systems reviewed & are unremarkable except as noted in HPI & below Physical Exam Physical Exam: General- Not in distress Head- atraumatic Eyes- PERRL, EOMI, anicteric ENT- oropharynx clear Neck- supple, no JVD. Lungs- clear to auscultation no wheezing or crackles Heart- regular rhythm; no murmur, no gallop. Abdomen- normal bowel sounds, soft, nontender, no distension Extremities- no pretibial edema, no erythema seen Neuro- alert, oriented PERRL, EOMI; no facial palsy; no dysarthria; power 5/5 bilaterally; no pronator drift . Skin- warm & dry Results & Data Results & Data Vital Signs (Past 12 Hours) Vital Signs Temp Pulse Pulse Resp BP BP Pulse Ox 09/26/24 00:16 76 09/26/24 00:00 65 19 153/80 H 95 09/25/24 22:00 68 16 187/56 H 93 09/25/24 20:31 66 18 176/89 H 94 09/25/24 20:26 68 09/25/24 20:07 36.4 C L 69 18 74/41 L 97 O2 Del Method 09/26/24 00:16 09/26/24 00:00 09/25/24 22:00 Room Air 09/25/24 20:31 Room Air 09/25/24 20:26 09/25/24 20:07 Room Air Diagnostic Findings Laboratory Results WBC 7.38 K/ul (4.8-10.8) 09/25/24 20:29 RBC 2.58 M/uL (4.70-6.10) L 09/25/24 20:29 Hgb 7.7 g/dl (14.0-18.0) L 09/25/24 20:29 Hct 23.3 % (42.0-52.0) L 09/25/24: MCV 90.3 fL (80.0-100.0) 09/25/24: MCH 29.8 pg (25.0-34.0) 09/25/24: MCHC 33.0 g/dL (32.0-36.0) 09/25/24 RDW Std Deviation 43.5 fL (36.4-46.3) 09/25/24 RDW Coeff of Severiano 13.2 % (11.5-14.5) 09/25/24 Plt Count 229 K/uL (130-400) 09/25/24 MPV 10.1 fL (9.4-12.4) 09/25/24: PT 18.2 Seconds (9.0-12.0) H 09/26/24 01:35 INR 1.8 (0.9-1.1) H 09/26/24 01:35 APTT 39 Seconds (21-31) H 09/25/24: PTT Ratio 1.4 09/25/24: Sodium 135 mmol/L (136-145) L 09/25/24: Potassium 3.5 mmol/L (3.5-5.1) 09/25/24: Chloride 98 mmol/L (98-107) 09/25/24: Carbon Dioxide 25 mmol/L (21-32) 09/25/24: Anion Gap 12 (3-11) H 09/25/24: BUN 84 mg/dl (6-23) H 09/25/24: Creatinine 6.97 mg/dl (0.6-1.4) H* 09/25/24: Est Cr Clr Drug Dosing Not Reportable 09/25/24: eGFR 7.88 09/25/24 BUN/Creatinine Ratio 12.1 (10-20) 09/25/24 Glucose 216 mg/dl (70-99(Fasting)) H 09/25/24: Calcium 8.7 mg/dl (8.6-10.3) 09/25/24: Magnesium 1.8 mg/dl (1.7-2.4) 09/25/24 20: Total Bilirubin 0.4 mg/dl (0.2-1.0) 09/25/24 20: AST 25 U/L (13-39) 09/25/24 20: ALT 3 U/L (7-52) L 09/25/24 20: Alkaline Phosphatase 54 U/L (34-104) 09/25/24 20: Troponin I High Sens 2486.5 pg/ml (0-20) H* 09/25/24 20: Total Protein 6.2 gm/dl (6.0-8.3) 09/25/24 20: Albumin 3.4 gm/dl (3.4-5.0) 09/25/24: Globulin 2.8 gm/dl (2.5-4.0) 09/25/24 20: Albumin/Globulin Ratio 1.2 (0.9-2) 09/25/24 20: Blood Type A Positive 09/25/24 20:59 Antibody Screen NEGATIVE 09/25/24 20:[address] 09/25/24 20:18 CR Exam(s): CT HEAD Without Contrast EXAM: CT Head Without Intravenous Contrast CLINICAL HISTORY: Reason for exam: Neuro deficit, acute, stroke suspected. TECHNIQUE: Axial computed tomography images of the head/brain without intravenous contrast. CTDI is 37.22 mGy and DLP is 546.36 mGy-cm. Automated exposure control was utilized for the study. A dose lowering technique was utilized adhering to the principles of ALARA. COMPARISON: No relevant prior studies available. FINDINGS: Brain: Chronic periventricular ischemic demyelination changes seen due to small vessel disease. No hemorrhage. Ventricles: Unremarkable. No ventriculomegaly. Bones/joints: Unremarkable. No acute fracture. Soft tissues: Unremarkable. Sinuses: Unremarkable as visualized. No acute sinusitis. Mastoid air cells: Unremarkable as visualized. No mastoid effusion. IMPRESSION: No acute findings in the head/brain. Communications: Call Doctor Stroke Electronically signed by: Kermit Billings MD 09/25/24 21:21 PM Neck CTA 09/25/24 20:22 CR Exam(s): CTA NECK With Contrast IV Amt: 119 ml opti 320 EXAM: CT Angiography Neck With Intravenous Contrast CLINICAL HISTORY: Reason for exam: stroke symtpsoms. TECHNIQUE: Routine carotid CT angiography protocol was performed with intravenous contrast. NASCET criteria using the distal ICAs for comparison were used for evaluation of stenoses. CTDI is 71.15 mGy and DLP is 1094.47 mGy-cm. Automated exposure control was utilized for the study. A dose lowering technique was utilized adhering to the principles of ALARA. MIP reconstructed images were created and reviewed. CONTRAST: Patient received 119 ml opti 320 of IV contrast COMPARISON: None. FINDINGS: VASCULATURE: Right common carotid artery: Unremarkable. No occlusion or significant stenosis. No dissection. Right internal carotid artery: Severe atherosclerotic calcification seen at the region of the right internal carotid artery causing more than 80% luminal narrowing. Right external carotid artery: Unremarkable. No occlusion. Right vertebral artery: Unremarkable. No occlusion or significant stenosis. No dissection. Left common carotid artery: There is patent vascular stent seen in the left common carotid and proximal left internal carotid artery. Left internal carotid artery: Patent vascular stent seen. Left external carotid artery: Unremarkable. No occlusion. Left vertebral artery: Unremarkable. No occlusion or significant stenosis. No dissection. NECK: Bones/joints: Unremarkable. No acute fracture. Soft tissues: Unremarkable. Lung apices: Mosaic groundglass densities seen in the right upper lobe. CAROTID STENOSIS REFERENCE USING NASCET CRITERIA: % ICA stenosis = (1 - narrowest ICA diameter/diameter of distal cervical ICA) x 100. Mild - <50% stenosis. Moderate - 50-69% stenosis. Severe - 70-94% stenosis. Near occlusion - 95-99% stenosis. Occluded - 100% stenosis. IMPRESSION: 1. Hemodynamically significant stenosis at the region of the right cervical internal carotid artery. This finding was discussed with the physician taking care of the patient at 9:27 PM eastern standard time 2. The right vertebral artery is hypoplastic. Communications: Call Doctor Stroke Electronically signed by: Kermit Billings MD 09/25/24 21:27 PM Head CTA 09/25/24 20:23 CR Exam(s): CTA HEAD With Contrast IV Amt: 119ml optiray 320 EXAM: CT Angiography Head With Intravenous Contrast CLINICAL HISTORY: Reason for exam: stroke smptoms. TECHNIQUE: Axial computed tomographic angiography images of the head with intravenous contrast. CTDI is 71.15 mGy and DLP is 1094.47 mGy-cm. Automated exposure control was utilized for the study. A dose lowering technique was utilized adhering to the principles of ALARA. MIP reconstructed images were created and reviewed. CONTRAST: Patient received 119ml optiray 320 of IV contrast COMPARISON: No relevant prior studies available. FINDINGS: Right internal carotid artery: No acute findings. Intracranial segment is patent with no significant stenosis. No aneurysm. Right anterior cerebral artery: Unremarkable. No occlusion or significant stenosis. No aneurysm. Right middle cerebral artery: Unremarkable. No occlusion or significant stenosis. No aneurysm. Right posterior cerebral artery: Unremarkable. No occlusion or significant stenosis. No aneurysm. Right vertebral artery: Right vertebral artery is hypoplastic. Left internal carotid artery: No acute findings. Intracranial segment is patent with no significant stenosis. No aneurysm. Left anterior cerebral artery: Unremarkable. No occlusion or significant stenosis. No aneurysm. Left middle cerebral artery: Unremarkable. No occlusion or significant stenosis. No aneurysm. Left posterior cerebral artery: Unremarkable. No occlusion or significant stenosis. No aneurysm. Left vertebral artery: Unremarkable as visualized. Basilar artery: Unremarkable. No occlusion or significant stenosis. No aneurysm. IMPRESSION: No acute findings in the arteries of the head/brain. Communications: Call Doctor Stroke Electronically signed by: Kermit Billings MD 09/25/24 21:22 PM ECG Additional Comments: ECG. Sinus rhythm with first-degree AV block rate of 71. Left ventricle hypertrophy with QRS widening and repolarization abnormality. ST depression lateral leads Code Status & VTE Plan VTE Prophylaxis Plan VTE Prophylaxis will be ordered: Yes
[2024-09-26 02:01] LABS: INR 1.8 (0.9-1.1); Prothrombin Time 18.2 Seconds (9.0-12.0)
[2024-09-26] MEDS ORDERED: PHARMACIST DISCHARGE MED REC CONSULT PRN (02:59)
[2024-09-26] MEDS ORDERED: GLUCAGON FOR INJ 1 MG VIAL SQ PRN (02:59)
[2024-09-26] MEDS ORDERED: DEXTROSE 50% 50 ML SYRINGE IV PRN (02:59)
[2024-09-26] MEDS ORDERED: CARBOHYDRATES FOR HYPOGLYCEMIA PO PRN (02:59)
[2024-09-26] MEDS ORDERED: NITROGLYCERIN SL 0.4 MG/TAB TAB SL PRN (02:59)
[2024-09-26] MEDS ORDERED: GLUCOSE 10 TAB/TUBE PO PRN (02:59)
[2024-09-26] MEDS ORDERED: GLUCOSE 40% GEL 15 GM TUBE PO PRN (02:59)
[2024-09-26] MEDS: Patient's HEIGHT &/or WEIGHT Needed STA (03:08)
[2024-09-26] MEDS: INSULIN ASPART PER UNIT CHARGE SC SCH ×2 (03:51→18:02)
[2024-09-26] MEDS: HEPARIN 25000 UNIT/500 ML D5W 25,000 UNITS/500 ML BAG IV SCH (03:52)
[2024-09-26] MEDS: Heparin IV Adult Wt-Based Low-Dose *NO* INITIAL Bolus Protocol IV STA (04:05)
[2024-09-26 05:56] LABS: Basophils # (auto) 0.04 K/uL (0.00-0.20); Basophils % (auto) 0.6 %; Eosinophils # (auto) 0.22 K/uL (0.00-0.50); Eosinophils % (auto) 3.3 %; Hematocrit (blood only) 21.5 % (42.0-52.0); Hemoglobin 7.1 g/dl (14.0-18.0); Immature Granulocytes # (auto) 0.05 K/uL (0.01-0.20); Immature Granulocytes % (auto) 0.8 %; Lymphocytes # (auto) 1.46 K/uL (1.20-3.40); Mean Corpuscular Hemoglobin 30.1 pg (25.0-34.0); Mean Corpuscular Volume 91.1 fL (80.0-100.0); Mean Platelet Volume 10.2 fL (9.4-12.4); Monocytes # (auto) 0.58 K/uL (0.11-0.59); Monocytes % (auto) 8.7 %; Neutrophils # (auto) 4.29 K/uL (1.40-6.50); Neutrophils % (auto) 64.6 %; Platelet Count 205 K/uL (130-400); RDW Coefficient of Variation 13.2 % (11.5-14.5); RDW Standard Deviation 42.7 fL (36.4-46.3); Red Blood Count 2.36 M/uL (4.70-6.10); White Blood Count 6.64 K/ul (4.8-10.8)
[2024-09-26 06:19] LABS: Calcium 8.8 mg/dl (8.6-10.3); Potassium 3.4 mmol/L (3.5-5.1)
[2024-09-26 06:26] LABS: BUN Creatinine Ratio 13.1 (10-20); Chol HDL Ratio 3.4 (0-5); Creatinine Clr Calc Pharmacy 10.9 ml/min; Troponin I High Sensitivity 2282.3 pg/ml (0-20)
[2024-09-26 06:31] LABS: RBC Morphology Unremarkable
[2024-09-26 06:42] LABS: Folate (Folic Acid),Ser orPlas 8.1 ng/ml (>5.38)
[2024-09-26 07:20] LABS: iSTAT Creatinine 7.5 mg/dl (0.6-1.3); iSTAT Hemoglobin 6.8 g/dl (14.0-18.0); iSTAT Ionized Calcium 1.13 mmol/l (1.12-1.32); iSTAT Potassium 3.4 mmol/L (3.3-5.0)
--- NOTE | 2024-09-26 07:38 | Cardiology Consultation ---
Date of Consultation September 26, 2024 Assessment & Plan (1) NSTEMI (non-ST elevated myocardial infarction): (2) Stroke-like symptoms: Plan Patient without symptoms of maggie angina however has noted significant elevation in high-sensitivity troponin, 2, 486 PG per mL on presentation overnight last night followed by measurement of 2, 104 PG per mL, and then 2, 282 PG per mL. EKG performed on presentation yesterday and again today at 1043 and EKG performed today at 1043 and interpret independently reveals normal sinus rhythm at 64 bpm with first-degree AV block and lateral ST segment changes consistent with ischemia. It is relatively unchanged compared to the tracing performed on presentation overnight last night. The repolarization abnormalities are slightly more prominent than that which was noted on 09/06/2024 and are new compared to September,. I see 1 EKG performed on 08/21/2022 but had somewhat similar repolarization abnormalities albeit less prominent. His most recent ischemic workup took place prior to considering of renal transplant with negative nuclear stress test in 2022. The patient's hemoglobin is 7.1 today having trended down since his recent carotid revascularization procedure, previously been in the range of 8-10 grams per deciliter before that . Given concerns of myocardial ischemia as well as ocular stroke, would recommend transfusion for goal hemoglobin in the range of 9 to 10 g/dL Echocardiogram performed today is reassuring without regional wall motion abnormalities, relatively unchanged compared to previous. CT angiogram of the head and neck performed on presentation yesterday reveals ongoing high-grade right carotid stenosis, and patent left carotid stent. I am not convinced his presentation is due to an acute intra coronary plaque rupture, wonder if he is having myocardial ischemia on the basis of anemia and myocardial strain as setting of his recent surgery and ongoing stroke issues. Medical management recommended from a cardiac perspective with ongoing use of antiplatelet therapy including aspirin and Brilinta, unfractionated heparin infusion if tolerated from an anemia standpoint. Carvedilol, amlodipine, isosorbide mononitrate, hydralazine, rosuvastatin. History of Present Illness Attending Physician: Kit Colunga MD History of Present Illness Mr Desai is a 69 year old male seen in cardiology consultation per the request of Dr Huber for the evaluation of a NSTEMI. The patient does not follow with [facility] cardiology as an outpatient with exception of having been seen at [facility] in 2022 as a preoperative assessment prior to consideration of renal transplant. At that time, a nuclear stress test had been performed with no evidence of ischemia and normal ejection fraction was noted. He had been hospitalized at [facility] in August, with partial left eye visual loss with concerns of left central retinal artery occlusion. A CT angiogram of the neck vessels performed on 09/07/2024 revealed high-grade stenosis of the origins of the bilateral internal and external carotid arteries. He was seen in consultation by Dr. Scott of vascular surgery and revascularization of both carotid arteries was recommended with the patient having undergone left transcarotid arterial revascularization on 09/19/2024 with tentative plans for the patient to recover and then have TCAR on the contralateral carotid in the near future. The patient was discharged on aspirin and Brilinta on 09/20/2024. He returned via the emergency department last evening with progressive visual deficit of the right eye and the left eye had progressed as well. 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 The patient denies having had any chest discomfort. He describes progressive dyspnea over the last few weeks, seemingly since his TCAR procedure. Past Medical History End-stage renal disease for which she is on peritoneal dialysis Hypertension Dyslipidemia History of pulmonary embolism for which she is on chronic anticoagulation with Coumadin Type 2 diabetes mellitus Bilateral symptomatic carotid stenosis Allergies Allergy/AdvReac Type Severity Reaction Status Date / Time atorvastatin AdvReac Intermediate Muscle Verified 09/25/24 22:07 aches bupropion [From Wellbutrin] AdvReac Intermediate Vivid Verified 09/25/24 22:07 dreams, hallucinations Fokazwy-YSP-XkO Reductase AdvReac Intermediate Body aches Verified 09/25/24 22:07 Inhibitor [Qgtbsjj-[id number]-Nbz Reductase Inhibitor] Home Medications Medication Instructions Recorded Confirmed Type gabapentin 100 mg capsule 100 mg PO TID 03/26/20 09/25/24 History sertraline 100 mg tablet 100 mg PO PM 05/22/21 09/25/24 History fenofibrate micronized 43 mg 43 mg PO PM 08/06/22 09/25/24 History capsule rosuvastatin 20 mg tablet 20 mg PO QAM 11/25/22 09/25/24 History carvedilol 25 mg tablet (Coreg) 25 mg PO BID 12/31/22 09/25/24 History sertraline 50 mg tablet 50 mg PO PM 09/22/23 09/25/24 History warfarin 3 mg tablet 1.5 - 3 mg PO UD 09/22/23 09/25/24 History hydralazine 100 mg tablet 100 mg PO TID #270 tabs 11/17/23 09/25/24 Rx glipizide 5 mg tablet 10 mg PO QAM 01/06/24 09/25/24 History aspirin 81 mg tablet,delayed 81 mg PO PM 02/24/24 09/25/24 History release isosorbide mononitrate 60 mg 60 mg PO QAM 02/24/24 09/25/24 History tablet,extended release 24 hr amlodipine 5 mg tablet (Norvasc) 5 mg PO BID #180 tabs 03/16/24 09/25/24 Rx polyethylene glycol 3350 17 17 g PO Q OTHER DAY 04/23/24 09/25/24 History gram/dose oral powder (Miralax) sevelamer HCl 800 mg tablet 800 mg PO TID 04/23/24 09/25/24 History finasteride 5 mg tablet 5 mg PO QAM #90 tabs 07/11/24 09/25/24 Rx bumetanide 2 mg tablet 4 mg PO BID 09/06/24 09/25/24 History epoetin brenda-epbx 40,000 unit/mL 40,000 unit subcut MONTHLY 09/06/24 09/25/24 History injection solution (Retacrit) insulin aspart U-100 100 unit/mL 3 unit subcut BID 09/06/24 09/25/24 History (3 mL) subcutaneous pen (Novolog FlexPen U-100 Insulin aspart) insulin glargine 100 unit/mL (3 12 unit subcut HS 09/06/24 09/25/24 History mL) subcutaneous pen (Lantus Solostar U-100 Insulin) sodium bicarbonate 650 mg tablet 650 mg PO BID 09/06/24 09/25/24 History tamsulosin 0.4 mg capsule 0.4 mg PO QAM 09/12/24 09/25/24 History ticagrelor 90 mg tablet (Brilinta) 90 mg PO BID #60 tabs 09/18/24 09/25/24 Rx Patient History Medical History Peritoneal dialysis catheter in situ PD every day - follows with neph dr. 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 > 50% stenosis external carotid arteries bilaterally admit to [facility]/ stroke like symptoms- d/c 09/09/24 Limb alert care status left arm Presence of arteriovenous fistula for hemodialysis Left Wrist Arteriovenous Fistula Creation BPH (benign prostatic hyperplasia) Foot drop, right Hx of cardiac arrhythmia reason pt had heart cath several yrs ago, unsure exactly what it was, controlled now per pt CHF (congestive heart failure) no longer follows with Dr. Marhsall in [place] Left renal mass Vitamin D deficiency Anemia Depression, unspecified HTN (hypertension) controlled, stable per pt Hx of Guillain-Jesup syndrome 2012 Diabetes mellitus NIDDM Dyslipidemia End stage renal disease PD every day - follows with neph dr. 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 Marshall/[place] - no longer sees Hx of colonoscopy Hx of bilateral hip replacements History of tonsillectomy Family History Brother Cancer Father Hypertension Diabetes Heart disease Dementia Mother Diabetes Social History Smoking Status: Never smoker Tobacco Type: Cigarettes Second Hand Exposure: No; Do You Dip or Chew Tobacco: No; Hx Alcohol Use: No Hx Substance Use: No Preferred Language: Congolese Communication Ability: Effective Visual Impairment: Limited Hearing Ability: Normal [employer] Required: No Beliefs That Will Affect Care: None marital status: / Current Living Situation: Family Current Living Situation Comment: with daughter current occupational status: retired Feels Safe at Home: Yes Diet: low salt caffeine: Yes (1 coffee daily) Physical Activity Frequency: Does not Exercise Do you think of yourself as: straight/heterosexual Gender Identity: Male Assistive Devices: Walker Review of Systems Review of Systems: All systems reviewed & are unremarkable except as noted in HPI & below Physical Exam Physical Exam: Temp Pulse Resp BP Pulse Ox O2 Del Method 36.4 C L 60 18 173/70 H 96 Room Air 09/26/24 07:34 09/26/24 08:25 09/26/24 07:34 09/26/24 07:34 09/26/24 07:34 09/26/24 07:34 General: no acute distress and stated age Eyes: conjunctiva are pink and non-injected, sclera clear Neck: normal jugular venous pulse, no hepatojugular reflux Chest: normal shape and normal respiratory effort Lungs: clear to auscultation and percussion Cardiac Exam: - regular heart sounds, 1/6 systolic murmur Abdomen: abdomen soft, non-tender, no abnormal masses and no hepatosplenomegaly Musculoskeletal: no gait disturbance, no weakness Extremities: no edema and no cyanosis Neuro:awake, conversant, follows commands, no focal motor deficits, Left eye blindness, partial visual loss of right eye Psych: appropriate affect and insight. Results & Data Vital Signs (Past 12 Hours) Vital Signs Temp Pulse Pulse Resp BP BP Pulse Ox 09/26/24 03:30 09/26/24 03:19 36.6 C 70 18 166/71 H 93 09/26/24 02:46 69 09/26/24 02:32 69 19 97 09/26/24 00:16 76 09/26/24 00:00 65 19 153/80 H 95 09/25/24 22:00 68 16 187/56 H 93 09/25/24 20:31 66 18 176/89 H 94 09/25/24 20:26 68 09/25/24 20:07 36.4 C L 69 18 74/41 L 97 O2 Del Method 09/26/24 03:30 Room Air 09/26/24 03:19 Room Air 09/26/24 02:46 09/26/24 02:32 Room Air 09/26/24 00:16 09/26/24 00:00 09/25/24 22:00 Room Air 09/25/24 20:31 Room Air 09/25/24 20:26 09/25/24 20:07 Room Air Laboratory Results Cardiac Enzymes 09/25/24 09/26/24 09/26/24 Range/Units 20:29 01:35 05:19 AST 25 (13-39) U/L Troponin I High Sens 2486.5 H* 2104.8 H* 2282.3 H* (0-20) pg/ml Coagulation 09/25/24 09/26/24 Range/Units 20:29 01:35 PT 18.2 H 18.2 H (9.0-12.0) Seconds APTT 39 H (21-31) Seconds Lipids 09/26/24 Range/Units 05:19 Triglycerides 201 H (0-150) mg/dl Cholesterol 110 (0-200) mg/dl HDL Cholesterol 32 mg/dl Cholesterol/HDL Ratio 3.4 (0-5) CBC 09/25/24 09/26/24 Range/Units 20:29 05:19 WBC 7.38 6.64 (4.8-10.8) K/ul RBC 2.58 L 2.36 L (4.70-6.10) M/uL Hgb 7.7 L 7.1 L (14.0-18.0) g/dl Hct 23.3 L 21.5 L (42.0-52.0) % Plt Count 229 205 (130-400) K/uL Neut # (Auto) 4.29 (1.40-6.50) K/uL Lymph # (Auto) 1.46 (1.20-3.40) K/uL [place] # (Auto) 0.58 (0.11-0.59) K/uL Eos # (Auto) 0.22 (0.00-0.50) K/uL Baso # (Auto) 0.04 (0.00-0.20) K/uL Comprehensive Metabolic Panel 09/25/24 09/26/24 Range/Units 20:29 05:19 Sodium 135 L 136 (136-145) mmol/L Potassium 3.5 3.4 L (3.5-5.1) mmol/L Chloride 98 98 (98-107) mmol/L Carbon Dioxide 25 28 (21-32) mmol/L BUN 84 H 92 H (6-23) mg/dl Creatinine 6.97 H* 7.04 H* (0.6-1.4) mg/dl Glucose 216 H 175 H (70-99(Fasting)) mg/dl Calcium 8.7 8.8 (8.6-10.3) mg/dl AST 25 (13-39) U/L ALT 3 L (7-52) U/L Alkaline Phosphatase 54 (34-104) U/L Total Protein 6.2 (6.0-8.3) gm/dl Albumin 3.4 (3.4-5.0) gm/dl
[2024-09-26 07:43] LABS: Estimated Average Glucose 174 mg/dl; Hemoglobin A1C 7.7 % (4.5-5.6)
--- NOTE | 2024-09-26 08:16 | Electrocardiogram Report ---
Test Reason : Blood Pressure : */* mmHG Vent. Rate : 71 BPM Atrial Rate : 71 BPM P-R Int : 216 ms QRS Dur : 134 ms QT Int : 446 ms P-R-T Axes : 41 30 179 degrees QTcB Int : 484 ms Sinus rhythm with 1st degree A-V block Left ventricular hypertrophy with QRS widening and repolarization abnormality Abnormal ECG When compared with ECG of 06-Sep-2024 12:41, AL interval has increased QRS duration has increased ST more depressed Lateral leads Confirmed by Edgar Davey [id number]) on 09/26/2024 8:16:14 AM Referred By: REFERRED SELF Confirmed By: Edgar Davey
[2024-09-26] MEDS: SEVELAMER CARBONATE 800 MG TAB PO SCH (09:08)
[2024-09-26] MEDS: amLODIPine BESYLATE 5 MG TAB PO SCH (09:08)
[2024-09-26] MEDS: carvediloL 25 MG TAB PO SCH (09:09)
[2024-09-26] MEDS: TICAGRELOR 90 MG TAB PO SCH (09:09)
[2024-09-26] MEDS: FINASTERIDE 5 MG TAB PO SCH (09:09)
[2024-09-26] MEDS: GABAPENTIN 100 MG CAP PO SCH (09:09)
[2024-09-26] MEDS: TAMSULOSIN HCL 0.4 MG CAP PO SCH (09:09)
[2024-09-26] MEDS: BUMETANIDE 1 MG TAB PO SCH (09:09)
[2024-09-26] MEDS: ROSUVASTATIN CALCIUM 20 MG TAB PO SCH (09:09)
[2024-09-26] MEDS: hydrALAZINE TAB 50 MG TAB PO SCH (09:09)
[2024-09-26] MEDS: ISOSORBIDE MONO EXTENDED REL 60 MG TABCR PO SCH (09:09)
[2024-09-26] MEDS: LANTUS PER UNIT CHARGE SQ SCH (09:10)
[2024-09-26] MEDS: POTASSIUM CHLORIDE CRTAB 20 MEQ TABCR PO STA (09:12)
[2024-09-26] MEDS: POLYETHYLENE (MIRALAX) 17 GM PACK PO SCH (09:13)
--- NOTE | 2024-09-26 09:13 | Nephrology Consultation ---
Date of Consultation September 26, 2024 Assessment & Plan (1) End-stage renal disease needing dialysis: * Patient appears clinically euvolemic. Electrolyte balance is acceptable. * Will provide peritoneal dialysis this evening according to chronic outpatient orders * Outpatient NCCPD: start at 8 PM, 4 exchanges/night, 2 L fill volume, 2.5% Delflex, Fill 10 minutes/dwell 90 minutes/drain 20 minutes, EDW 95 kg * NCCPD orders were placed in the EMR and on-call HD RN notified * BMP in am * Continue bumetanide. Monitor UO (2) Vision loss of right eye: * Blind in L eye * New onset R vision loss * CTA neck, cerebral vessels - 80% R ICA stenosis * Await neurology, vascular surgery input (3) Anemia: * Agree w/ blood transfusion to maintain Hgb > or = 8.0 * Will provide one dose ROMMEL * Monitor H&H, check iron stores (4) NSTEMI (non-ST elevated myocardial infarction): * Await cardiology input (5) Diabetes mellitus with neuropathy: (6) Guillain Jean Baptiste syndrome: History of Present Illness Reason for Consultation: ESKD-PD Attending Physician: Isabel Chou MD History of Present Illness Mr. Desai is a 69-year-old white male who is seen at the request of the [facility] hospitalist service to provide NCCPD and assist with medical management. Information for the HPI is obtained from direct patient interview and review of the EMR. HPI summarized as follows: Mr. Desai has ESKD due to DKD. Initially he underwent L RC AVF creation 01/02 but later chose peritoneal dialysis. He underwent peritoneal dialysis catheter placement 04/05. Unfortunately the procedure was complicated by bladder perforation. The catheter was later repositioned and the bladder repaired. Mr. Desai started peritoneal dialysis 06/05. His primary seafood farmer is Dr. Hidalgo. His outpatient dialysis prescription is as follows: CCPD starting at 8 PM, 4 exchanges/night, 2 L fill volume, 2.5% Delflex, Fill 10 minutes/dwell 90 minutes/drain 20 minutes, EDW 95 kg. Mr. Desai denies any recent complications with his and CCPD therapy. Specifically he has had no difficulty with fill/dwell/drain. He has had no fibrin within the tubing. His effluent has remained clear. He denies abdominal discomfort. Mr. Desai's medical history is also significant for HTN, hyperlipidemia, history of PE requiring chronic coumadin anticoagulation, AODM, PVD, Guillain-Jean Baptiste syndrome and CHF. On 08/31/2024 Mr. Desai developed sudden onset of L vision loss. There was no trauma, ARAGON, focal neurologic weakness. His vision progressively got worse. He was seen by an web art director and found to have central retinal artery occlusion. Mr. Desai was referred to [facility] EMD to assess for potential source of CVA. Head CT was negative for stroke. CTA of cerebral vessels revealed high grade bilateral ICA stenosis. Mr. Desai underwent L TCAR 09/19/24 and remained on coumadin, asa, plavix. He did well until 09/25/24 when he suffered acute R vision loss. He is now admitted for neurology and vascular surgery evaluation. Hgb 7.1, troponin is elevated and ECG shows ST depression in lateral leads. Cardiology has seen patient and advised blood transfusion. Mr. Desai reports that his last PD treatment was 09/24/24. Allergies Allergy/AdvReac Type Severity Reaction Status Date / Time atorvastatin AdvReac Intermediate Muscle Verified 09/25/24 22:07 aches bupropion [From Wellbutrin] AdvReac Intermediate Vivid Verified 09/25/24 22:07 dreams, hallucinations Upoqzwi-UGW-WlS Reductase AdvReac Intermediate Body aches Verified 09/25/24 22:07 Inhibitor [Xqvmreg-Pkq-Zwo Reductase Inhibitor] Home Medications Medication Instructions Recorded Confirmed Type gabapentin 100 mg capsule 100 mg PO TID 03/26/20 09/25/24 History sertraline 100 mg tablet 100 mg PO PM 05/22/21 09/25/24 History fenofibrate micronized 43 mg 43 mg PO PM 08/06/22 09/25/24 History capsule rosuvastatin 20 mg tablet 20 mg PO QAM 11/25/22 09/25/24 History carvedilol 25 mg tablet (Coreg) 25 mg PO BID 12/31/22 09/25/24 History sertraline 50 mg tablet 50 mg PO PM 09/22/23 09/25/24 History warfarin 3 mg tablet 1.5 - 3 mg PO UD 09/22/23 09/25/24 History hydralazine 100 mg tablet 100 mg PO TID #270 tabs 11/17/23 09/25/24 Rx glipizide 5 mg tablet 10 mg PO QAM 01/06/24 09/25/24 History aspirin 81 mg tablet,delayed 81 mg PO PM 02/24/24 09/25/24 History release isosorbide mononitrate 60 mg 60 mg PO QAM 02/24/24 09/25/24 History tablet,extended release 24 hr amlodipine 5 mg tablet (Norvasc) 5 mg PO BID #180 tabs 03/16/24 09/25/24 Rx polyethylene glycol 3350 17 17 g PO Q OTHER DAY 04/23/24 09/25/24 History gram/dose oral powder (Miralax) sevelamer HCl 800 mg tablet 800 mg PO TID 04/23/24 09/25/24 History finasteride 5 mg tablet 5 mg PO QAM #90 tabs 07/11/24 09/25/24 Rx bumetanide 2 mg tablet 4 mg PO BID 09/06/24 09/25/24 History epoetin brenda-epbx 40,000 unit/mL 40,000 unit subcut MONTHLY 09/06/24 09/25/24 History injection solution (Retacrit) insulin aspart U-100 100 unit/mL 3 unit subcut BID 09/06/24 09/25/24 History (3 mL) subcutaneous pen (Novolog FlexPen U-100 Insulin aspart) insulin glargine 100 unit/mL (3 12 unit subcut HS 09/06/24 09/25/24 History mL) subcutaneous pen (Lantus Solostar U-100 Insulin) sodium bicarbonate 650 mg tablet 650 mg PO BID 09/06/24 09/25/24 History tamsulosin 0.4 mg capsule 0.4 mg PO QAM 09/12/24 09/25/24 History ticagrelor 90 mg tablet (Brilinta) 90 mg PO BID #60 tabs 09/18/24 09/25/24 Rx Patient History Medical History Peritoneal dialysis catheter in situ PD every day [id number]- follows with neph dr. 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 > 50% stenosis external carotid arteries bilaterally admit to [facility]/ stroke like symptoms- d/c 09/09/24 Limb alert care status left arm Presence of arteriovenous fistula for hemodialysis Left Wrist Arteriovenous Fistula Creation BPH (benign prostatic hyperplasia) Foot drop, right Hx of cardiac arrhythmia reason pt had heart cath several yrs ago, unsure exactly what it was, controlled now per pt CHF (congestive heart failure) no longer follows with Dr. Marshall in [place] Left renal mass Vitamin D deficiency Anemia Depression, unspecified HTN (hypertension) controlled, stable per pt Hx of Guillain-[place] syndrome 2012 Diabetes mellitus NIDDM Dyslipidemia End stage renal disease PD every day [id number]- follows with neph dr. 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 Marshall/[place] - no longer sees Hx of colonoscopy Hx of bilateral hip replacements History of tonsillectomy Family History Brother Cancer Father Hypertension Diabetes Heart disease Dementia Mother Diabetes Social History Smoking Status: Never smoker Tobacco Type: Cigarettes Second Hand Exposure: No; Do You Dip or Chew Tobacco: No; Hx Alcohol Use: No Hx Substance Use: No Preferred Language: Turkish Communication Ability: Effective Visual Impairment: Limited Hearing Ability: Normal Auto Glass Worker Required: No Beliefs That Will Affect Care: None marital status: / Current Living Situation: Family Current Living Situation Comment: with daughter current occupational status: retired Feels Safe at Home: Yes Diet: low salt caffeine: Yes (1 coffee daily) Physical Activity Frequency: Does not Exercise Do you think of yourself as: straight/heterosexual Gender Identity: Male Assistive Devices: Walker Review of Systems Constitutional: no fever Eyes: + worsening vision (acute vision loss R eye, no vision L eye) Ear, Nose, Mouth, Throat: no problem reported Respiratory: no cough and no dyspnea Cardiovascular: no chest pain and no palpitations Gastrointestinal: no abdominal pain, no nausea, no vomiting and no diarrhea/loose stools Genitourinary: no dysuria or no difficulty urinating Neurologic: no problem reported Physical Exam Constitutional: not in distress Eyes: PERRL, conjunctivae normal, anicteric sclerae ENMT: external ear and nose normal, oropharynx normal Neck: trachea midline, no thyromegaly Respiratory: normal respiratory effort, lungs clear to auscultation Cardiovascular: RRR, no murmur, no edema Extremities: + AV fistula (+ bruit) Gastrointestinal (Abdomen): normal bowel sounds, soft, nontender, no hepatosplenomegaly PD exit site w/ clean dry dressing. Extension tubing remains in place Musculoskeletal: Extremities: no cyanosis and no clubbing Skin: no rashes, warm and dry Neurologic: awake; not confused Results & Data Vital Signs (Past 12 Hours) Vital Signs Temp Pulse Pulse Resp BP Pulse Ox O2 Del Method 09/26/24 08:25 60 09/26/24 07:34 36.4 C L 63 18 173/70 H 96 Room Air 09/26/24 03:30 Room Air 09/26/24 03:19 36.6 C 70 18 166/71 H 93 Room Air 09/26/24 02:46 69 09/26/24 02:32 69 19 97 Room Air 09/26/24 00:16 76 09/26/24 00:00 65 19 153/80 H 95 09/25/24 22:00 68 16 187/56 H 93 Room Air Laboratory Results Laboratory Results WBC 6.64 K/ul (4.8-10.8) 09/26/24 05:19 RBC 2.36 M/uL (4.70-6.10) L 09/26/24 05:19 Hgb 7.1 g/dl (14.0-18.0) L 09/26/24 05:19 POC Hgb 6.8 g/dl (14.0-18.0) L* 09/25/24 20:28 Hct 21.5 % (42.0-52.0) L 09/26/24 05:19 POC Hct 20 % (42-52) L* 09/25/24 20:28 MCV 91.1 fL (80.0-100.0) 09/26/24 05:19 MCH 30.1 pg (25.0-34.0) 09/26/24 05:19 MCHC 33.0 g/dL (32.0-36.0) 09/26/24 05:19 RDW Std Deviation 42.7 fL (36.4-46.3) 09/26/24 05:19 RDW Coeff of Severiano 13.2 % (11.5-14.5) 09/26/24 05:19 Plt Count 205 K/uL (130-400) 09/26/24 05:19 MPV 10.2 fL (9.4-12.4) 09/26/24 05:19 Immature Gran % (Auto) 0.8 % 09/26/24 05:19 Neut % (Auto) 64.6 % 09/26/24 05:19 Lymph % (Auto) 22.0 % 09/26/24 05:19 Mercer % (Auto) 8.7 % 09/26/24 05:19 Eos % (Auto) 3.3 % 09/26/24 05:19 Baso % (Auto) 0.6 % 09/26/24 05:19 Neut # (Auto) 4.29 K/uL (1.40-6.50) 09/26/24 05:19 Lymph # (Auto) 1.46 K/uL (1.20-3.40) 09/26/24 05:19 Mercer # (Auto) 0.58 K/uL (0.11-0.59) 09/26/24 05:19 Eos # (Auto) 0.22 K/uL (0.00-0.50) 09/26/24 05:19 Baso # (Auto) 0.04 K/uL (0.00-0.20) 09/26/24 05:19 Immature Gran # (Auto) 0.05 K/uL (0.01-0.20) 09/26/24 05:19 RBC Morphology Unremarkable 09/26/24 05:19 PT 18.2 Seconds (9.0-12.0) H 09/26/24 01:35 INR 1.8 (0.9-1.1) H 09/26/24 01:35 APTT 39 Seconds (21-31) H 09/25/24 20:29 PTT Ratio 1.4 09/25/24 20:29 POC Sodium 135 mmol/L (135-144) 09/25/24 20:28 Sodium 136 mmol/L (136-145) 09/26/24 05:19 POC Potassium 3.4 mmol/L (3.3-5.0) 09/25/24 20:28 Potassium 3.4 mmol/L (3.5-5.1) L 09/26/24 05:19 POC Chloride 96 mmol/L (101-112) L 09/25/24 20:28 Chloride 98 mmol/L (98-107) 09/26/24 05:19 Carbon Dioxide 28 mmol/L (21-32) 09/26/24 05:19 POC Total CO2 22 mmol/L (24-31) L 09/25/24 20:28 Anion Gap 10 (3-11) 09/26/24 05:19 POC Anion Gap 21.0 mmol/L (16-25) 09/25/24 20:28 POC BUN 103 mg/dl (7-18) H* 09/25/24 20:28 BUN 92 mg/dl (6-23) H 09/26/24 05:19 Creatinine 7.04 mg/dl (0.6-1.4) H* 09/26/24 05:19 POC Creatinine 7.5 mg/dl (0.6-1.3) H* 09/25/24 20:28 Est Cr Clr Drug Dosing 10.9 ml/min 09/26/24 05:19 eGFR 7.78 09/26/24 05:19 BUN/Creatinine Ratio 13.1 (10-20) 09/26/24 05:19 Glucose 175 mg/dl (70-99(Fasting)) H 09/26/24 05:19 POC Glucose 162 mg/dl (70-99) H 09/26/24 07:27 POC Glucose (other) 217 mg/dl (70-99) H 09/25/24 20:28 Estimat Average Glucose 174 mg/dl 09/26/24 05:19 Hemoglobin A1c 7.7 % (4.5-5.6) H 09/26/24 05:19 Calcium 8.8 mg/dl (8.6-10.3) 09/26/24 05:19 POC Ioniz Calcium Mary[place]ruz 1.13 mmol/l (1.12-1.32) 09/25/24 20:28 Magnesium 2.0 mg/dl (1.7-2.4) 09/26/24 05:19 Iron 98 mcg/dl (35-175) 09/26/24 05:19 TIBC 319 mcg/dl (250-450) 09/26/24 05:19 Transferrin 228 mg/dl (200-360) 09/26/24 05:19 Transferrin % Sat 31 % (20-50) 09/26/24 05:19 Total Bilirubin 0.4 mg/dl (0.2-1.0) 09/25/24 20:29 AST 25 U/L (13-39) 09/25/24 20:29 ALT 3 U/L (7-52) L 09/25/24 20:29 Alkaline Phosphatase 54 U/L (34-104) 09/25/24 20:29 Troponin I High Sens 2282.3 pg/ml (0-20) H* 09/26/24 05:19 Total Protein 6.2 gm/dl (6.0-8.3) 09/25/24 20:29 Albumin 3.4 gm/dl (3.4-5.0) 09/25/24 20:29 Globulin 2.8 gm/dl (2.5-4.0) 09/25/24 20:29 Albumin/Globulin Ratio 1.2 (0.9-2) 09/25/24 20:29 Triglycerides 201 mg/dl (0-150) H 09/26/24 05:19 Cholesterol 110 mg/dl (0-200) 09/26/24 05:19 LDL Cholesterol, Calc 38 mg/dl 09/26/24 05:19 VLDL Cholesterol, Calc 40 mg/dl (0-30) H 09/26/24 05:19 HDL Cholesterol 32 mg/dl 09/26/24 05:19 Cholesterol/HDL Ratio 3.4 (0-5) 09/26/24 05:19 Vitamin B12 442 pg/ml (180-914) 09/26/24 05:19 Folate 8.10 ng/ml (>5.38) 09/26/24 05:19 Blood Type A Positive 09/25/24 20:59 Antibody Screen NEGATIVE 09/25/24 20:[address] 09/25/24 20:18 CR Exam(s): CT HEAD Without Contrast EXAM: CT Head Without Intravenous Contrast CLINICAL HISTORY: Reason for exam: Neuro deficit, acute, stroke suspected. TECHNIQUE: Axial computed tomography images of the head/brain without intravenous contrast. CTDI is 37.22 mGy and DLP is 546.36 mGy-cm. Automated exposure control was utilized for the study. A dose lowering technique was utilized adhering to the principles of ALARA. COMPARISON: No relevant prior studies available. FINDINGS: Brain: Chronic periventricular ischemic demyelination changes seen due to small vessel disease. No hemorrhage. Ventricles: Unremarkable. No ventriculomegaly. Bones/joints: Unremarkable. No acute fracture. Soft tissues: Unremarkable. Sinuses: Unremarkable as visualized. No acute sinusitis. Mastoid air cells: Unremarkable as visualized. No mastoid effusion. IMPRESSION: No acute findings in the head/brain. Communications: Call Doctor Stroke Electronically signed by: Kermit Billings MD 09/25/24 21:21 PM Neck CTA 09/25/24 20:22 CR Exam(s): CTA NECK With Contrast IV Amt: 119 ml opti 320 EXAM: CT Angiography Neck With Intravenous Contrast CLINICAL HISTORY: Reason for exam: stroke symtpsoms. TECHNIQUE: Routine carotid CT angiography protocol was performed with intravenous contrast. NASCET criteria using the distal ICAs for comparison were used for evaluation of stenoses. CTDI is 71.15 mGy and DLP is 1094.47 mGy-cm. Automated exposure control was utilized for the study. A dose lowering technique was utilized adhering to the principles of ALARA. MIP reconstructed images were created and reviewed. CONTRAST: Patient received 119 ml opti 320 of IV contrast COMPARISON: None. FINDINGS: VASCULATURE: Right common carotid artery: Unremarkable. No occlusion or significant stenosis. No dissection. Right internal carotid artery: Severe atherosclerotic calcification seen at the region of the right internal carotid artery causing more than 80% luminal narrowing. Right external carotid artery: Unremarkable. No occlusion. Right vertebral artery: Unremarkable. No occlusion or significant stenosis. No dissection. Left common carotid artery: There is patent vascular stent seen in the left common carotid and proximal left internal carotid artery. Left internal carotid artery: Patent vascular stent seen. Left external carotid artery: Unremarkable. No occlusion. Left vertebral artery: Unremarkable. No occlusion or significant stenosis. No dissection. NECK: Bones/joints: Unremarkable. No acute fracture. Soft tissues: Unremarkable. Lung apices: Mosaic groundglass densities seen in the right upper lobe. CAROTID STENOSIS REFERENCE USING NASCET CRITERIA: % ICA stenosis = (1 - narrowest ICA diameter/diameter of distal cervical ICA) x 100. Mild - <50% stenosis. Moderate - 50-69% stenosis. Severe - 70-94% stenosis. Near occlusion - 95-99% stenosis. Occluded - 100% stenosis. IMPRESSION: 1. Hemodynamically significant stenosis at the region of the right cervical internal carotid artery. This finding was discussed with the physician taking care of the patient at 9:27 PM eastern standard time 2. The right vertebral artery is hypoplastic. Communications: Call Doctor Stroke Electronically signed by: Kermit Billings MD 09/25/24 21:27 PM Head CTA 09/25/24 20:23 CR Exam(s): CTA HEAD With Contrast IV Amt: 119ml optiray 320 EXAM: CT Angiography Head With Intravenous Contrast CLINICAL HISTORY: Reason for exam: stroke smptoms. TECHNIQUE: Axial computed tomographic angiography images of the head with intravenous contrast. CTDI is 71.15 mGy and DLP is 1094.47 mGy-cm. Automated exposure control was utilized for the study. A dose lowering technique was utilized adhering to the principles of ALARA. MIP reconstructed images were created and reviewed. CONTRAST: Patient received 119ml optiray 320 of IV contrast COMPARISON: No relevant prior studies available. FINDINGS: Right internal carotid artery: No acute findings. Intracranial segment is patent with no significant stenosis. No aneurysm. Right anterior cerebral artery: Unremarkable. No occlusion or significant stenosis. No aneurysm. Right middle cerebral artery: Unremarkable. No occlusion or significant stenosis. No aneurysm. Right posterior cerebral artery: Unremarkable. No occlusion or significant stenosis. No aneurysm. Right vertebral artery: Right vertebral artery is hypoplastic. Left internal carotid artery: No acute findings. Intracranial segment is patent with no significant stenosis. No aneurysm. Left anterior cerebral artery: Unremarkable. No occlusion or significant stenosis. No aneurysm. Left middle cerebral artery: Unremarkable. No occlusion or significant stenosis. No aneurysm. Left posterior cerebral artery: Unremarkable. No occlusion or significant stenosis. No aneurysm. Left vertebral artery: Unremarkable as visualized. Basilar artery: Unremarkable. No occlusion or significant stenosis. No aneurysm. IMPRESSION: No acute findings in the arteries of the head/brain. Communications: Call Doctor Stroke Electronically signed by: Kermit Billings MD 09/25/24 21:22 PM PG Care Time/CCT Total # of Minutes Spent Total Time Spent with Patient: Total time spent is greater than 50% in coordination of care (as documented) at patient's floor/unit and/or counseling patient: Coding Level of Care Code 79032 IN/OBS CONSULT LVL 5,80M Diagnoses End-stage renal disease needing dialysis N18.6; Z99.2 Vision loss of right eye H54.61 Anemia D64.9 NSTEMI (non-ST elevated myocardial infarction) I21.4 Diabetes mellitus with neuropathy E11.40 Guillain Jean Baptiste syndrome G61.0
[2024-09-26] MEDS ORDERED: SODIUM CHLORIDE 0.9% 100 ML IV PRN (10:35)
--- NOTE | 2024-09-26 11:16 | CT Scan Report ---
CT chest diagnostic wo con CT DOSE: 828.75 mGy.cm CLINICAL HISTORY: [place]. TECHNIQUE: Multiaxial CT images of the chest were performed without contrast. A dose lowering techni que was utilized adhering to the principles of ALARA. COMPARISON STUDY: Chest x-ray of 09/06/2024 FINDINGS: There are mild airway secretions. There is mild bronchial wall thickening consistent with b ronchitis. There is moderate cardiomegaly with prominence of the pulmonary vasculature consistent wit h CHF. There are mild peripheral reticular and groundglass pulmonary opacities. No lobar consolidatio n or pleural effusion. No pneumothorax. There are a few tiny sub-4 mm pulmonary nodules and there are a few tiny calcified granuloma. No significant pulmonary nodule seen. No enlarged adenopathy. There is mild gynecomastia. There are severe diffuse coronary artery calcifications. There are mild thoraci c spine degenerative changes. IMPRESSION: 1. Mild CHF with no pleural effusion. 2. Mild pulmonary opacities likely represent trace pulmonary edema. No pneumonia is seen. 3. Otherwise as described. ACT 112: Negative or not required by law. Electronically signed by: Daryn Urbina M.D. 09/26/2024 11:13 AM
[2024-09-26 11:24] LABS: ANTI-Xa, UFH(UnfractionatedHep 0.22 IU/ml (0.3-0.7)
--- NOTE | 2024-09-26 11:48 | Hospitalist Progress Note ---
Date of Service September 26, 2024 Assessment & Plan (1) Stroke-like symptoms: Plan pt is a 69-year-old male with past medical history significant for end-stage renal disease on peritoneal dialysis, hypertension, hyperlipidemia, history of PE on chronic Coumadin, type 2 diabetes, peripheral vascular disease, CHF who presents with right ocular stroke. Patient was admitted on 08/30/2024 with left eye vision loss, outpatient ophthalmology found to have central artery occlusion and patient was admitted to hospital. Imaging studies showed high-grade stenosis of the bilateral internal and external carotid arteries. 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 Will do stroke protocol with MRI scan, echo Neurochecks Telemetry Neurology consulted, appreciate recs Vascular surgery consulted, appreciate recs 09/26- pt with worsening vision, repeat stat head CT and chest XRAY- no acute change. Holding IV heparin Non-ST elevated DE Troponin 2486 Denies chest pain EKG has some ST depressions in lateral leads Has shortness on exertion Patient has history of PE on Coumadin INR is 1.8 today Follow echo Hold heparin and warfarin Cardiac consult for further recommendation History of PE Holding anticoagulation as above End-stage renal disease On peritoneal dialysis Continue home [facility] consult Anemia Hemoglobin 7.7 Hemoglobin 8.5 recently Usually seems to be 9-10 range Will check stool for Hemoccult Iron studies, vitamin B12 folate levels Repeat H/H Holding anticoagulation as above Diabetes Hold glipizide and home Lantus Lantus 5 daily and sliding scale Close monitor Hypertension On amlodipine, hydralazine, Imdur and Coreg Will monitor Hyperlipidemia On statin and fenofibrate BPH On finasteride and Flomax Monitor for urinary retention Depression On Zoloft DVT prophylaxis: IV heparin on hold. Monitor h and h Dispo: PT/OT for further recs Admission and Anticipated Discharge Date Admission Date: September 26, 2024 Subjective Pt was seen multiple times during the day initially in the AM, agreeable to a blood transfusion Later called to bedside as pt was having SOB during the blood transfusion and worsening vision in the right eye Stat head CT and XRAY unremarkable Review of Systems Review of Systems: All systems reviewed & are unremarkable except as noted in Subjective Physical Exam Physical Exam: General: Alert, oriented. No acute distress HEENT: decreased vision in the left eye HEENT: NC/AT CV: RRR Resp: Breath sounds decreased bilaterally, no increased effort of breathing Abdomen: Soft, nontender Extremities: No edema in lower extremities bilaterally. Results & Data Results & Data Vital Signs (Past 12 Hours) Vital Signs Temp Pulse Pulse Resp BP Pulse Ox O2 Del Method 09/26/24 11:31 36.4 C L 63 18 148/67 H 96 Room Air 09/26/24 08:25 60 09/26/24 07:34 36.4 C L 63 18 173/70 H 96 Room Air 09/26/24 03:30 Room Air 09/26/24 03:19 36.6 C 70 18 166/71 H 93 Room Air 09/26/24 02:46 69 09/26/24 02:32 69 19 97 Room Air 09/26/24 00:16 76 09/26/24 00:00 65 19 153/80 H [address] 09/25/24 20:18 CR Exam(s): CT HEAD Without Contrast EXAM: CT Head Without Intravenous Contrast CLINICAL HISTORY: Reason for exam: Neuro deficit, acute, stroke suspected. TECHNIQUE: Axial computed tomography images of the head/brain without intravenous contrast. CTDI is 37.22 mGy and DLP is 546.36 mGy-cm. Automated exposure control was utilized for the study. A dose lowering technique was utilized adhering to the principles of ALARA. COMPARISON: No relevant prior studies available. FINDINGS: Brain: Chronic periventricular ischemic demyelination changes seen due to small vessel disease. No hemorrhage. Ventricles: Unremarkable. No ventriculomegaly. Bones/joints: Unremarkable. No acute fracture. Soft tissues: Unremarkable. Sinuses: Unremarkable as visualized. No acute sinusitis. Mastoid air cells: Unremarkable as visualized. No mastoid effusion. IMPRESSION: No acute findings in the head/brain. Communications: Call Doctor Stroke Electronically signed by: Kermit Billings MD 09/25/24 21:21 PM Neck CTA 09/25/24 20:22 CR Exam(s): CTA NECK With Contrast IV Amt: 119 ml opti 320 EXAM: CT Angiography Neck With Intravenous Contrast CLINICAL HISTORY: Reason for exam: stroke symtpsoms. TECHNIQUE: Routine carotid CT angiography protocol was performed with intravenous contrast. NASCET criteria using the distal ICAs for comparison were used for evaluation of stenoses. CTDI is 71.15 mGy and DLP is 1094.47 mGy-cm. Automated exposure control was utilized for the study. A dose lowering technique was utilized adhering to the principles of ALARA. MIP reconstructed images were created and reviewed. CONTRAST: Patient received 119 ml opti 320 of IV contrast COMPARISON: None. FINDINGS: VASCULATURE: Right common carotid artery: Unremarkable. No occlusion or significant stenosis. No dissection. Right internal carotid artery: Severe atherosclerotic calcification seen at the region of the right internal carotid artery causing more than 80% luminal narrowing. Right external carotid artery: Unremarkable. No occlusion. Right vertebral artery: Unremarkable. No occlusion or significant stenosis. No dissection. Left common carotid artery: There is patent vascular stent seen in the left common carotid and proximal left internal carotid artery. Left internal carotid artery: Patent vascular stent seen. Left external carotid artery: Unremarkable. No occlusion. Left vertebral artery: Unremarkable. No occlusion or significant stenosis. No dissection. NECK: Bones/joints: Unremarkable. No acute fracture. Soft tissues: Unremarkable. Lung apices: Mosaic groundglass densities seen in the right upper lobe. CAROTID STENOSIS REFERENCE USING NASCET CRITERIA: % ICA stenosis = (1 - narrowest ICA diameter/diameter of distal cervical ICA) x 100. Mild - <50% stenosis. Moderate - 50-69% stenosis. Severe - 70-94% stenosis. Near occlusion - 95-99% stenosis. Occluded - 100% stenosis. IMPRESSION: 1. Hemodynamically significant stenosis at the region of the right cervical internal carotid artery. This finding was discussed with the physician taking care of the patient at 9:27 PM eastern standard time 2. The right vertebral artery is hypoplastic. Communications: Call Doctor Stroke Electronically signed by: Kermit Billings MD 09/25/24 21:27 PM Head CTA 09/25/24 20:23 CR Exam(s): CTA HEAD With Contrast IV Amt: 119ml optiray 320 EXAM: CT Angiography Head With Intravenous Contrast CLINICAL HISTORY: Reason for exam: stroke smptoms. TECHNIQUE: Axial computed tomographic angiography images of the head with intravenous contrast. CTDI is 71.15 mGy and DLP is 1094.47 mGy-cm. Automated exposure control was utilized for the study. A dose lowering technique was utilized adhering to the principles of ALARA. MIP reconstructed images were created and reviewed. CONTRAST: Patient received 119ml optiray 320 of IV contrast COMPARISON: No relevant prior studies available. FINDINGS: Right internal carotid artery: No acute findings. Intracranial segment is patent with no significant stenosis. No aneurysm. Right anterior cerebral artery: Unremarkable. No occlusion or significant stenosis. No aneurysm. Right middle cerebral artery: Unremarkable. No occlusion or significant stenosis. No aneurysm. Right posterior cerebral artery: Unremarkable. No occlusion or significant stenosis. No aneurysm. Right vertebral artery: Right vertebral artery is hypoplastic. Left internal carotid artery: No acute findings. Intracranial segment is patent with no significant stenosis. No aneurysm. Left anterior cerebral artery: Unremarkable. No occlusion or significant stenosis. No aneurysm. Left middle cerebral artery: Unremarkable. No occlusion or significant stenosis. No aneurysm. Left posterior cerebral artery: Unremarkable. No occlusion or significant stenosis. No aneurysm. Left vertebral artery: Unremarkable as visualized. Basilar artery: Unremarkable. No occlusion or significant stenosis. No aneurysm. IMPRESSION: No acute findings in the arteries of the head/brain. Communications: Call Doctor Stroke Electronically signed by: Kermit Billings MD 09/25/24 21:22 PM Brain MRI 09/26/24 02:26 MR brain wo con CLINICAL HISTORY: right eye stroke COMPARISON STUDY: 09/06/[address] yesterday FINDINGS: There is motion artifact. No restricted diffusion seen to suggest acute infarction. There is stable mild diffuse cerebral volume loss. No mass effect, midline shift, or hydrocephalus. Stable mild chronic small vessel ischemic changes. No other significant signal abnormality seen in the brain. IMPRESSION: Motion limited exam with no acute infarction seen. ACT 112: Negative or not required by law. Electronically signed by: Daryn Urbina M.D. 09/26/2024 11:[address] 09/26/24 08:04 CT chest diagnostic wo con CT DOSE: 828.75 mGy.cm CLINICAL HISTORY: [place]. TECHNIQUE: Multiaxial CT images of the chest were performed without contrast. A dose lowering technique was utilized adhering to the principles of ALARA. COMPARISON STUDY: Chest x-ray of 09/06/2024 FINDINGS: There are mild airway secretions. There is mild bronchial wall thickening consistent with bronchitis. There is moderate cardiomegaly with prominence of the pulmonary vasculature consistent with CHF. There are mild peripheral reticular and groundglass pulmonary opacities. No lobar consolidation or pleural effusion. No pneumothorax. There are a few tiny sub-4 mm pulmonary nodules and there are a few tiny calcified granuloma. No significant pulmonary nodule seen. No enlarged adenopathy. There is mild gynecomastia. There are severe diffuse coronary artery calcifications. There are mild thoracic spine degenerative changes. IMPRESSION: 1. Mild CHF with no pleural effusion. 2. Mild pulmonary opacities likely represent trace pulmonary edema. No pneumonia is seen. 3. Otherwise as described. ACT 112: Negative or not required by law. Electronically signed by: Daryn Urbina M.D. 09/26/2024 11:13 AM Chest X-Ray 09/26/24 14:09 XR chest 1V portable CLINICAL HISTORY: neuro deficit, acute stroke suspected COMPARISON STUDY: 09/06/2024 FINDINGS: Stable mild cardiomegaly without pulmonary vascular congestion. No effusion, consolidation, or pneumothorax. IMPRESSION: No acute findings. ACT 112: Negative or not required by law. Electronically signed by: Daryn Urbina M.D. 09/26/2024 2:[address] 09/26/24 14:09 CT head/brain wo con CLINICAL HISTORY: neuro deficit, acute stroke suspected. TECHNIQUE: Multiple axial CT images of the head were obtained without contrast. Sagittal and coronal reconstructions were done. A dose lowering technique was utilized adhering to the principles of ALARA. CT DOSE: 547.75 mGy.cm COMPARISON: 09/25/2024 FINDINGS: The CT findings are unchanged. There is no intra-axial or extra-axial fluid collection, hemorrhage, or mass. The ventricular system and sulci are age- appropriate. There is no midline shift. No focal attenuation abnormality identified. The bone windows are negative. IMPRESSION: Stable exam; no acute intracranial process. ACT 112: Negative or not required by law. The above report was generated using voice recognition software. It may contain grammatical, syntax or spelling errors. Electronically signed by: Elizabeth Babcock M.D. 09/26/2024 3:20 PM
--- NOTE | 2024-09-26 11:58 | Magnetic Resonance Report ---
MR brain wo con CLINICAL HISTORY: right eye stroke COMPARISON STUDY: 09/06/[address] yesterday FINDINGS: There is motion artifact. No restricted diffusion seen to suggest acute infarction. There i s stable mild diffuse cerebral volume loss. No mass effect, midline shift, or hydrocephalus. Stable m ild chronic small vessel ischemic changes. No other significant signal abnormality seen in the brain. IMPRESSION: Motion limited exam with no acute infarction seen. ACT 112: Negative or not required by law. Electronically signed by: Daryn Urbina M.D. 09/26/2024 11:56 AM
[2024-09-26 12:52] LABS: Hematocrit (blood only) 23.6 % (42.0-52.0); Hemoglobin 7.8 g/dl (14.0-18.0)
--- NOTE | 2024-09-26 13:32 | Neurology Consultation ---
Date of Consultation September 26, 2024 Assessment & Plan (1) Central artery occlusion of retina: Likely secondary to extensive atherosclerotic disease of the MURALI MRI of the brain shows no acute ischemic stroke Plan Continue with Aspirin and Brilinta, in addition to high dose statin Vascular surgery consult for revascularization . Maintain BP mean while avoid precipitous drops Supportive care and reorientation Telehealth Consultation Telehealth Information Telehealth Information: I performed this visit using a real-time telehealth connection between my location and the patients location ([facility]). After connecting through interactive tele-video, patient was identified by name and date of and/or wristband check.Patient (or authorized healthcare indirect sales representative) was informed that this was a telemedicine visit and it was being conducted confidentially over secure lines. My office door was closed and no one else was present in the room with me.Patient (or authorized healthcare indirect sales representative) provided consent to proceed with the visit, expressed an understanding of privacy and security of the telemedicine visit, and gave permission to have a hospital indirect sales representative in the room in order to assist with the visit and to conduct portions of the visit, as needed. I informed the patient (or authorized healthcare indirect sales representative) that I reviewed their record and presented the opportunity for them to ask any questions regarding the visit today. The patient agreed to participate. History of Present Illness Reason for Consultation: Right eye visual changes Requesting Physician: Isabel Chou MD Attending Physician: Isabel Chou MD History of Present Illness 69-year-old male patient with PMH of type II DM, HTN, HLD, PVD, CKD, history of PE with chronic Coumadin use, history of right ocular stroke, on 08/30 left eye vision loss due to central retinal artery occlusion, had a recent left ICA stenting on 09/19/2024 but discharged on aspirin and Brilinta, The patient is now presenting with the right eyeright eye visual changes starting Tuesday with branch retinal artery occlusion, with CTA showing severe stenosis of the right cervical ICA MRI of the brain was motion limited without any evidence of stroke on diffusion- weighted images.. CT head showed no acute changes CTA head and neck 09/25 2024 showing a patent left ICA stent with 80% narrowing of the right ICA with severe atherosclerotic ossifications Allergies Allergy/AdvReac Type Severity Reaction Status Date / Time atorvastatin AdvReac Intermediate Muscle Verified 09/25/24 22:07 aches bupropion [From Wellbutrin] AdvReac Intermediate Vivid Verified 09/25/24 22:07 dreams, hallucinations Isvatiw-FOP-IwW Reductase AdvReac Intermediate Body aches Verified 09/25/24 22:07 Inhibitor [Pklqdhd-Izp-Mqh Reductase Inhibitor] Home Medications Medication Instructions Recorded Confirmed Type gabapentin 100 mg capsule 100 mg PO TID 03/26/20 09/25/24 History sertraline 100 mg tablet 100 mg PO PM 05/22/21 09/25/24 History fenofibrate micronized 43 mg 43 mg PO PM 08/06/22 09/25/24 History capsule rosuvastatin 20 mg tablet 20 mg PO QAM 11/25/22 09/25/24 History carvedilol 25 mg tablet (Coreg) 25 mg PO BID 12/31/22 09/25/24 History sertraline 50 mg tablet 50 mg PO PM 09/22/23 09/25/24 History warfarin 3 mg tablet 1.5 - 3 mg PO UD 09/22/23 09/25/24 History hydralazine 100 mg tablet 100 mg PO TID #270 tabs 11/17/23 09/25/24 Rx glipizide 5 mg tablet 10 mg PO QAM 01/06/24 09/25/24 History aspirin 81 mg tablet,delayed 81 mg PO PM 02/24/24 09/25/24 History release isosorbide mononitrate 60 mg 60 mg PO QAM 02/24/24 09/25/24 History tablet,extended release 24 hr amlodipine 5 mg tablet (Norvasc) 5 mg PO BID #180 tabs 03/16/24 09/25/24 Rx polyethylene glycol 3350 17 17 g PO Q OTHER DAY 04/23/24 09/25/24 History gram/dose oral powder (Miralax) sevelamer HCl 800 mg tablet 800 mg PO TID 04/23/24 09/25/24 History finasteride 5 mg tablet 5 mg PO QAM #90 tabs 07/11/24 09/25/24 Rx bumetanide 2 mg tablet 4 mg PO BID 09/06/24 09/25/24 History epoetin brenda-epbx 40,000 unit/mL 40,000 unit subcut MONTHLY 09/06/24 09/25/24 History injection solution (Retacrit) insulin aspart U-100 100 unit/mL 3 unit subcut BID 09/06/24 09/25/24 History (3 mL) subcutaneous pen (Novolog FlexPen U-100 Insulin aspart) insulin glargine 100 unit/mL (3 12 unit subcut HS 09/06/24 09/25/24 History mL) subcutaneous pen (Lantus Solostar U-100 Insulin) sodium bicarbonate 650 mg tablet 650 mg PO BID 09/06/24 09/25/24 History tamsulosin 0.4 mg capsule 0.4 mg PO QAM 09/12/24 09/25/24 History ticagrelor 90 mg tablet (Brilinta) 90 mg PO BID #60 tabs 09/18/24 09/25/24 Rx Patient History Medical History Peritoneal dialysis catheter in situ PD every day - follows with neph dr. hidalgo Hx of pulmonary edema PVD (peripheral vascular disease) SOB (shortness of breath) on exertion Vision loss, left eye admit to [facility], carotid occlusion, stroke r/o Hyperlipidemia Central artery occlusion of retina (09/07/24) Carotid artery disease Carotid doppler 11/17/23= 50-69% stenosis ICAs bilaterally. > 50% stenosis external carotid arteries bilaterally admit to [facility]/ stroke like symptoms- d/c 09/09/24 Limb alert care status left arm Presence of arteriovenous fistula for hemodialysis Left Wrist Arteriovenous Fistula Creation BPH (benign prostatic hyperplasia) Foot drop, right Hx of cardiac arrhythmia reason pt had heart cath several yrs ago, unsure exactly what it was, controlled now per pt CHF (congestive heart failure) no longer follows with Dr. Marshall in [place] Left renal mass Vitamin D deficiency Anemia Depression, unspecified HTN (hypertension) controlled, stable per pt Hx of Guillain-[place] syndrome 2012 Diabetes mellitus NIDDM Dyslipidemia End stage renal disease PD every day - follows with neph dr. 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 Marshall/[place] - no longer sees Hx of colonoscopy Hx of bilateral hip replacements History of tonsillectomy Family History Brother Cancer Father Hypertension Diabetes Heart disease Dementia Mother Diabetes Social History Smoking Status: Never smoker Tobacco Type: Cigarettes Second Hand Exposure: No; Do You Dip or Chew Tobacco: No; Hx Alcohol Use: No Hx Substance Use: No Preferred Language: Swedish Communication Ability: Effective Visual Impairment: Limited Hearing Ability: Normal Integration Manager Required: No Beliefs That Will Affect Care: None marital status: / Current Living Situation: Family Current Living Situation Comment: with daughter current occupational status: retired Feels Safe at Home: Yes Diet: low salt caffeine: Yes (1 coffee daily) Physical Activity Frequency: Does not Exercise Do you think of yourself as: straight/heterosexual Gender Identity: Male Assistive Devices: Walker Review of Systems Negative except for the ones mentioned in HPI Physical Exam General Constitutional: Appearance normally developed Head and face: normocephalic and atraumatic Eyes: no ptosis, no anisocoria, and no dysconjugate gaze Respiratory: normal effort Cardiovascular: regular rhythm and regular rate Abdomen: non distended Skin: no rashes, lesions, or ulcers noted Psychiatric: normal judgement and insight, normal mood, and normal affect NEUROLOGIC EXAMINATION: Mental Status:alert, oriented to time, place, person, normal recent memory, normal remote memory, normal attention span, normal concentration, normal language and normal fund of knowledge Cranial Nerves: CN 2 -right eye visual field deficit, left eye blindness CN 3, 4, 6 - extra-ocular movements intact and no nystagmus CN 5 - facial sensation intact CN 7 - no facial asymmetry CN 8 - intact hearing CN 9, 10 - palate symmetric, normal gag CN 11 - good shoulder shrug CN 12 - tongue midline MOTOR: Strength was at least antigravity throughout, Pronator drift was absent and There were no abnormal movements SENSATION: intact and symmetric to pinprick, light touch, vibration and joint position GAIT: stable, no ataxia and can perform tandem walking COORDINATION: no ataxia with finger to nose testing and heel to linda testing REFLEXES: cannot assess over telemedicine NIH Stroke Scale: 1a. Level of Consciousness: alert = 0 1b. LOC Questions: (month, age): both correct = 0 1c. LOC Commands (open and close eyes, make fist and let go using non-paretic hand): obeys both correctly = 0 2. Best Gaze (eyes open and patient follows examiner's finger or face): normal = 0 3. Visual (visual threat or finger counting in each quadrant): right eye visual field deficit, left eye blindness = 3 4. Facial Palsy (show teeth, raise eye brows and squeeze eyes shut, or grimace symmetry in a comatose patient): normal = 0 5a. Motor Arm (extend arm (palms down) to 90 degrees and score drift/movement (10 seconds) - Left: no drift = 0 5b. Motor Arm: (extend arm (palms down) to 90 degrees and score drift/movement (10 seconds) - Right: no drift = 0 6a. Motor Leg (elevate leg 30 degrees and score drift/ movement (5 seconds) - Left: no drift = 0 6b. Motor Leg (elevate leg 30 degrees and score drift/ movement (5 seconds) - Right: no drift = 0 7. Limb Ataxia (finger to nose, heel down linda): absent = 0 8. Sensory (pin prick to face, arm, trunk and leg, compare side to side): normal = 0 9. Best Language: no aphasia = 0 10. Dysarthria (evaluate speech clarity by patient repeating listed words): normal articulation = 0 11. Extinction and Inattention: no neglect = 0 Total: 3 Results & Data Vital Signs (Past 12 Hours) Vital Signs Temp Pulse Pulse Resp BP BP Pulse Ox 09/26/24 13:16 36.4 C L 67 18 145/74 H 09/26/24 11:31 36.4 C L 63 18 148/67 H 96 09/26/24 08:25 60 09/26/24 07:34 36.4 C L 63 18 173/70 H 96 09/26/24 03:30 09/26/24 03:19 36.6 C 70 18 166/71 H 93 09/26/24 02:46 69 09/26/24 02:32 69 19 97 O2 Del Method 09/26/24 13:16 09/26/24 11:31 Room Air 09/26/24 08:25 09/26/24 07:34 Room Air 09/26/24 03:30 Room Air 09/26/24 03:19 Room Air 09/26/24 02:46 09/26/24 02:32 Room Air Laboratory Results Laboratory Results - last 24 hr 09/25/24 09/25/24 09/25/24 20:28 20:29 20:59 WBC 7.38 RBC 2.58 L Hgb 7.7 L POC Hgb 6.8 L* Hct 23.3 L POC Hct 20 L* MCV 90.3 MCH 29.8 MCHC 33.0 RDW Std Deviation 43.5 RDW Coeff of Severiano 13.2 Plt Count 229 MPV 10.1 Immature Gran % (Auto) Neut % (Auto) Lymph % (Auto) Cochran % (Auto) Eos % (Auto) Baso % (Auto) Neut # (Auto) Lymph # (Auto) Cochran # (Auto) Eos # (Auto) Baso # (Auto) Immature Gran # (Auto) RBC Morphology PT 18.2 H INR 1.8 H APTT 39 H PTT Ratio 1.4 Heparin Anti-Xa, Unfract POC Sodium 135 Sodium 135 L POC Potassium 3.4 Potassium 3.5 POC Chloride 96 L Chloride 98 Carbon Dioxide 25 POC Total CO2 22 L Anion Gap 12 H POC Anion Gap 21.0 POC BUN 103 H* BUN 84 H Creatinine 6.97 H* POC Creatinine 7.5 H* Est Cr Clr Drug Dosing Not Reportable eGFR 7.88 BUN/Creatinine Ratio 12.1 Glucose 216 H POC Glucose POC Glucose (other) 217 H Estimat Average Glucose Hemoglobin A1c Calcium 8.7 POC Ioniz Calcium Marycruz 1.13 Magnesium 1.8 Iron TIBC Transferrin Transferrin % Sat Total Bilirubin 0.4 AST 25 ALT 3 L Alkaline Phosphatase 54 Troponin I High Sens 2486.5 H* Total Protein 6.2 Albumin 3.4 Globulin 2.8 Albumin/Globulin Ratio 1.2 Triglycerides Cholesterol LDL Cholesterol, Calc VLDL Cholesterol, Calc HDL Cholesterol Cholesterol/HDL Ratio Vitamin B12 Folate Blood Type A Positive Antibody Screen NEGATIVE Crossmatch See Detail 09/26/24 09/26/24 09/26/24 01:35 03:20 05:19 WBC 6.64 RBC 2.36 L Hgb 7.1 L POC Hgb Hct 21.5 L POC Hct MCV 91.1 MCH 30.1 MCHC 33.0 RDW Std Deviation 42.7 RDW Coeff of Severiano 13.2 Plt Count 205 MPV 10.2 Immature Gran % (Auto) 0.8 Neut % (Auto) 64.6 Lymph % (Auto) 22.0 Cochran % (Auto) 8.7 Eos % (Auto) 3.3 Baso % (Auto) 0.6 Neut # (Auto) 4.29 Lymph # (Auto) 1.46 Cochran # (Auto) 0.58 Eos # (Auto) 0.22 Baso # (Auto) 0.04 Immature Gran # (Auto) 0.05 RBC Morphology Unremarkable PT 18.2 H INR 1.8 H APTT PTT Ratio Heparin Anti-Xa, Unfract POC Sodium Sodium 136 POC Potassium Potassium 3.4 L POC Chloride Chloride 98 Carbon Dioxide 28 POC Total CO2 Anion Gap 10 POC Anion Gap POC BUN BUN 92 H Creatinine 7.04 H* POC Creatinine Est Cr Clr Drug Dosing 10.9 eGFR 7.78 BUN/Creatinine Ratio 13.1 Glucose 175 H POC Glucose 242 H POC Glucose (other) Estimat Average Glucose 174 Hemoglobin A1c 7.7 H Calcium 8.8 POC Ioniz Calcium Marycruz Magnesium 2.0 Iron 98 TIBC 319 Transferrin 228 Transferrin % Sat 31 Total Bilirubin AST ALT Alkaline Phosphatase Troponin I High Sens 2104.8 H* 2282.3 H* Total Protein Albumin Globulin Albumin/Globulin Ratio Triglycerides 201 H Cholesterol 110 LDL Cholesterol, Calc 38 VLDL Cholesterol, Calc 40 H HDL Cholesterol 32 Cholesterol/HDL Ratio 3.4 Vitamin B12 442 Folate 8.10 Blood Type Antibody Screen Crossmatch 09/26/24 09/26/24 09/26/24 07:27 10:39 12:13 WBC RBC Hgb 7.8 L POC Hgb Hct 23.6 L POC Hct MCV MCH MCHC RDW Std Deviation RDW Coeff of Severiano Plt Count MPV Immature Gran % (Auto) Neut % (Auto) Lymph % (Auto) Cochran % (Auto) Eos % (Auto) Baso % (Auto) Neut # (Auto) Lymph # (Auto) Cochran # (Auto) Eos # (Auto) Baso # (Auto) Immature Gran # (Auto) RBC Morphology PT INR APTT PTT Ratio Heparin Anti-Xa, Unfract 0.22 L POC Sodium Sodium POC Potassium Potassium POC Chloride Chloride Carbon Dioxide POC Total CO2 Anion Gap POC Anion Gap POC BUN BUN Creatinine POC Creatinine Est Cr Clr Drug Dosing eGFR BUN/Creatinine Ratio Glucose POC Glucose 162 H POC Glucose (other) Estimat Average Glucose Hemoglobin A1c Calcium POC Ioniz Calcium Marycruz Magnesium Iron TIBC Transferrin Transferrin % Sat Total Bilirubin AST ALT Alkaline Phosphatase Troponin I High Sens 2354.1 H* Total Protein Albumin Globulin Albumin/Globulin Ratio Triglycerides Cholesterol LDL Cholesterol, Calc VLDL Cholesterol, Calc HDL Cholesterol Cholesterol/HDL Ratio Vitamin B12 Folate Blood Type Antibody Screen Crossmatch 09/26/24 12:15 WBC RBC Hgb POC Hgb Hct POC Hct MCV MCH MCHC RDW Std Deviation RDW Coeff of Severiano Plt Count MPV Immature Gran % (Auto) Neut % (Auto) Lymph % (Auto) Cochran % (Auto) Eos % (Auto) Baso % (Auto) Neut # (Auto) Lymph # (Auto) Cochran # (Auto) Eos # (Auto) Baso # (Auto) Immature Gran # (Auto) RBC Morphology PT INR APTT PTT Ratio Heparin Anti-Xa, Unfract POC Sodium Sodium POC Potassium Potassium POC Chloride Chloride Carbon Dioxide POC Total CO2 Anion Gap POC Anion Gap POC BUN BUN Creatinine POC Creatinine Est Cr Clr Drug Dosing eGFR BUN/Creatinine Ratio Glucose POC Glucose 186 H POC Glucose (other) Estimat Average Glucose Hemoglobin A1c Calcium POC Ioniz Calcium Marycruz Magnesium Iron TIBC Transferrin Transferrin % Sat Total Bilirubin AST ALT Alkaline Phosphatase Troponin I High Sens Total Protein Albumin Globulin Albumin/Globulin Ratio Triglycerides Cholesterol LDL Cholesterol, Calc VLDL Cholesterol, Calc HDL Cholesterol Cholesterol/HDL Ratio Vitamin B12 Folate Blood Type Antibody Screen Crossmatch Diagnostic Findings MRI of the brain was motion limited without any evidence of stroke on diffusion- weighted images.. CT head showed no acute changes CTA head and neck 09/25 2024 showing a patent left ICA stent with 80% narrowing of the right ICA with severe atherosclerotic ossifications Medications Administered Home Medications Medication Instructions Recorded Confirmed Last Taken gabapentin 100 mg capsule 100 mg PO TID 03/26/20 09/25/24 09/25/24 12:00 sertraline 100 mg tablet 100 mg PO PM 05/22/21 09/25/24 09/24/24 fenofibrate micronized 43 mg 43 mg PO PM 08/06/22 09/25/24 09/24/24 capsule rosuvastatin 20 mg tablet 20 mg PO QAM 11/25/22 09/25/24 09/25/24 carvedilol 25 mg tablet (Coreg) 25 mg PO BID 12/31/22 09/25/24 09/25/24 08:00 sertraline 50 mg tablet 50 mg PO PM 09/22/23 09/25/24 09/24/24 warfarin 3 mg tablet 1.5 - 3 mg PO UD 09/22/23 09/25/24 09/25/24 hydralazine 100 mg tablet 100 mg PO TID #270 tabs 11/17/23 09/25/24 09/25/24 12:00 glipizide 5 mg tablet 10 mg PO QAM 01/06/24 09/25/24 09/25/24 aspirin 81 mg tablet,delayed 81 mg PO PM 02/24/24 09/25/24 09/24/24 release isosorbide mononitrate 60 mg 60 mg PO QAM 02/24/24 09/25/24 09/25/24 tablet,extended release 24 hr amlodipine 5 mg tablet (Norvasc) 5 mg PO BID #180 tabs 03/16/24 09/25/24 09/25/24 08:00 polyethylene glycol 3350 17 17 g PO Q OTHER DAY 04/23/24 09/25/24 09/24/24 gram/dose oral powder (Miralax) sevelamer HCl 800 mg tablet 800 mg PO TID 04/23/24 09/25/24 09/25/24 12:00 finasteride 5 mg tablet 5 mg PO QAM #90 tabs 07/11/24 09/25/24 09/25/24 bumetanide 2 mg tablet 4 mg PO BID 09/06/24 09/25/24 09/25/24 08:00 epoetin brenda-epbx 40,000 unit/mL 40,000 unit subcut MONTHLY 09/06/24 09/25/24 09/11/24 injection solution (Retacrit) insulin aspart U-100 100 unit/mL 3 unit subcut BID 09/06/24 09/25/24 09/25/24 08:00 (3 mL) subcutaneous pen (Novolog FlexPen U-100 Insulin aspart) insulin glargine 100 unit/mL (3 12 unit subcut HS 09/06/24 09/25/24 09/24/24 mL) subcutaneous pen (Lantus Solostar U-100 Insulin) sodium bicarbonate 650 mg tablet 650 mg PO BID 09/06/24 09/25/24 09/25/24 08:00 tamsulosin 0.4 mg capsule 0.4 mg PO QAM 09/12/24 09/25/24 09/25/24 ticagrelor 90 mg tablet (Brilinta) 90 mg PO BID #60 tabs 09/18/24 09/25/24 09/25/24 08:00 Active Medications Generic Name Dose Route Start Last Admin Trade Name Freq PRN Reason Stop Dose Admin Amlodipine Besylate 5 mg 09/26/24 09:00 09/26/24 09:08 Amlodipine Besylate 5 Mg Tab PO 10/26/24 08:59 5 mg BID JAKOB Administration Bumetanide 4 mg 09/26/24 09:00 09/26/24 09:09 Bumetanide 1 Mg Tab PO 10/26/24 08:59 4 mg [id number] JAKOB Administration Carvedilol 25 mg 09/26/24 09:00 09/26/24 09:09 Carvedilol 25 Mg Tab PO 10/26/24 08:59 25 mg BID JAKOB Administration Finasteride 5 mg 09/26/24 09:00 09/26/24 09:09 Finasteride 5 Mg Tab PO 10/26/24 08:59 5 mg QAM JAKOB Administration Gabapentin 100 mg 09/26/24 09:00 09/26/24 09:09 Gabapentin 100 Mg Cap PO 10/26/24 08:59 100 mg TID JAKOB Administration Hydralazine HCl 100 mg 09/26/24 09:00 09/26/24 09:09 Hydralazine Tab 50 Mg Tab PO 10/26/24 08:59 100 mg TID JAKOB Administration Heparin Sodium/Dextrose 25,000 units in 500 mls @ 21 mls/hr 09/26/24 02:59 09/26/24 12:25 Heparin 24280 Unit/500 Ml D5w IV 10/26/24 02:58 1,050 units/hr .[id number] JAKOB 21 mls/hr Titration Protocol 1,050 UNITS/HR Insulin Aspart 0 units 09/26/24 02:59 09/26/24 04:31 Insulin Aspart Per Unit Charge SC 10/26/24 02:58 Not Given Q6 JAKOB Insulin Glargine 5 units 09/26/24 09:00 09/26/24 09:10 Lantus Per Unit Charge SQ 10/26/24 08:59 Not Given DAILY JAKOB Isosorbide Mononitrate 60 mg 09/26/24 09:00 09/26/24 09:09 Isosorbide Cochran Extended Rel 60 Mg Tabcr PO 10/26/24 08:59 60 mg QAM JAKOB Administration Miscellaneous 1 each 09/26/24 08:00 09/26/24 09:13 Order Awaiting Action: Fenofibrate Micronized 43 Mg Capsule N/A 10/26/24 07:59 Not Given QS JAKOB Polyethylene Glycol 17 gm 09/26/24 09:00 09/26/24 09:13 Polyethylene (Miralax) 17 Gm Pack PO 10/26/24 08:59 17 gm Q48H JAKOB Administration Rosuvastatin Calcium 20 mg 09/26/24 09:00 09/26/24 09:09 Rosuvastatin Calcium 20 Mg Tab PO 10/26/24 08:59 20 mg QAM JAKOB Administration Sevelamer Carbonate 800 mg 09/26/24 08:00 09/26/24 12:25 Sevelamer Carbonate 800 Mg Tab PO 10/26/24 07:59 800 mg TIDM JAKOB Administration Tamsulosin HCl 0.4 mg 09/26/24 09:00 09/26/24 09:09 Tamsulosin Hcl 0.4 Mg Cap PO 10/26/24 08:59 0.4 mg QAM JAKOB Administration Ticagrelor 90 mg 09/26/24 09:00 09/26/24 09:09 Ticagrelor 90 Mg Tab PO 10/26/24 08:59 90 mg BID JAKOB Administration
--- NOTE | 2024-09-26 14:33 | XRay Report ---
XR chest 1V portable CLINICAL HISTORY: neuro deficit, acute stroke suspected COMPARISON STUDY: 09/06/2024 FINDINGS: Stable mild cardiomegaly without pulmonary vascular congestion. No effusion, consolidation, or pneumothorax. IMPRESSION: No acute findings. ACT 112: Negative or not required by law. Electronically signed by: Daryn Urbina M.D. 09/26/2024 2:32 PM
[2024-09-26] MEDS: NITROGLYCERIN 2% OINTMENT 30GM TUBE EXT SCH (14:36)
--- NOTE | 2024-09-26 14:39 | Communication Note ---
Date of Service: September 26, 2024 Patient reassessed with complaints of chest tightness and shortness of breath, 45 minutes into transfusion of 1 unit of packed red blood cells. Also notes worsening vision in right eye. Stat CXR without worsening interstitial fluid per radiology report and per my interpretation of the image. Bedside repeat stat EKG reveals ongoing lateral ST segment depression , unchanged compared to tracing this am. SBP 172, SR in 60s noted. Plan: add 1/2 inch of nitropaste Patient has ESRD and is on PD but makes urine. Received home oral bumex dose this am. Add bumex 4 mg IV x 1. Pause heparin infusion and transfusion. Stabilize respiratory status prior to CT head. Veena Nixon DO
[2024-09-26] MEDS: BUMETANIDE 4 MG in SYRINGE 0 ML IV ONE (14:48)
[2024-09-26] MEDS: NITROGLYCERIN 2% OINTMENT 30GM TUBE EXT ONE (14:49)
--- NOTE | 2024-09-26 15:14 | Communication Note ---
Date of Service: September 26, 2024 Patient symptomatic from a severe stenosis of his right internal carotid artery. [place]uni therapy would be a right tcar early next week. Need to continue asa, Brilinta and statin for this procedure
--- NOTE | 2024-09-26 15:21 | CT Scan Report ---
CT head/brain wo con CLINICAL HISTORY: neuro deficit, acute stroke suspected. TECHNIQUE: Multiple axial CT images of the head were obtained without contrast. Sagittal and coronal reconstructions were done. A dose lowering technique was utilized adhering to the principles of SHANNAN Platt. CT DOSE: 547.75 mGy.cm COMPARISON: 09/25/2024 FINDINGS: The CT findings are unchanged. There is no intra-axial or extra-axial fluid collection, hem orrhage, or mass. The ventricular system and sulci are age-appropriate. There is no midline shift. No focal attenuation abnormality identified. The bone windows are negative. IMPRESSION: Stable exam; no acute intracranial process. ACT 112: Negative or not required by law. The above report was generated using voice recognition software. It may contain grammatical, syntax o r spelling errors. Electronically signed by: Elizabeth Babcock M.D. 09/26/2024 3:20 PM
[2024-09-26 15:27] LABS: Basophils # (auto) 0.05 K/uL (0.00-0.20); Basophils % (auto) 0.8 %; Eosinophils # (auto) 0.19 K/uL (0.00-0.50); Eosinophils % (auto) 2.9 %; Hematocrit (blood only) 21.8 % (42.0-52.0); Hemoglobin 7.2 g/dl (14.0-18.0); Immature Granulocytes # (auto) 0.04 K/uL (0.01-0.20); Immature Granulocytes % (auto) 0.6 %; Lymphocytes % (auto) 16.6 %; Mean Corpuscular Volume 90.8 fL (80.0-100.0); Mean Platelet Volume 9.5 fL (9.4-12.4); Monocytes # (auto) 0.52 K/uL (0.11-0.59); Monocytes % (auto) 7.9 %; Neutrophils # (auto) 4.71 K/uL (1.40-6.50); Neutrophils % (auto) 71.2 %; Platelet Count 192 K/uL (130-400); RDW Coefficient of Variation 13.1 % (11.5-14.5); RDW Standard Deviation 43.2 fL (36.4-46.3); White Blood Count 6.61 K/ul (4.8-10.8)
--- NOTE | 2024-09-26 15:51 | Consultation ---
Date of Consultation September 26, 2024 Assessment & Plan (1) Symptomatic stenosis of right carotid artery: Pt doing well from L TCAR procedure last week. Now with R eye symptoms in association with R ICAS. Pt discussed wtih Dr Lopes, recommends pt undergo R TCAR procedure in OR on SUNDAY 10/01. Pt agreeable. Also discussed with pt daughter, jamie. He is to remain on his DAPT. Patient was seen, examined, and chart reviewed. Agree with exam and treatment plan of the Vascular PA. History of Present Illness Reason for Consultation: R ICAS Attending Physician: Isabel Chou MD History of Present Illness 69 yo m with hx of ESRD on PD, HTN, dyslipidemia, CHF, DMII, neuropathy, anemia, and now 1 week s/p L TCAR d/t symptomatic L ICA disease, seen in consultation today for R eye central retinal artery occlusion and R ICAS. Pt with known R ICA disease, however, R TCAR was going to be scheduled as outpt after f/u in office from L TCAR last week. He states he developed R eye blurry vision and vision loss a few days ago, and saw his eye doctor who looked in his eye and advised him to go to ED. Pt denies any other sx, including unilateral weakness numbness or tingling, difficulty speaking, facial droop, sudden onset confusion, other complaints. CTA demonstrates over 80% stenosis of R ICA. Allergies Allergy/AdvReac Type Severity Reaction Status Date / Time atorvastatin AdvReac Intermediate Muscle Verified 09/25/24 22:07 aches bupropion [From Wellbutrin] AdvReac Intermediate Vivid Verified 09/25/24 22:07 dreams, hallucinations [id number]-[id number] Reductase AdvReac Intermediate Body aches Verified 09/25/24 22:07 Inhibitor [Pyrcsbr-Utg-Fkz Reductase Inhibitor] Home Medications Medication Instructions Recorded Confirmed Type gabapentin 100 mg capsule 100 mg PO TID 03/26/20 09/25/24 History sertraline 100 mg tablet 100 mg PO PM 05/22/21 09/25/24 History fenofibrate micronized 43 mg 43 mg PO PM 08/06/22 09/25/24 History capsule rosuvastatin 20 mg tablet 20 mg PO QAM 11/25/22 09/25/24 History carvedilol 25 mg tablet (Coreg) 25 mg PO BID 12/31/22 09/25/24 History sertraline 50 mg tablet 50 mg PO PM 09/22/23 09/25/24 History warfarin 3 mg tablet 1.5 - 3 mg PO UD 09/22/23 09/25/24 History hydralazine 100 mg tablet 100 mg PO TID #270 tabs 11/17/23 09/25/24 Rx glipizide 5 mg tablet 10 mg PO QAM 01/06/24 09/25/24 History aspirin 81 mg tablet,delayed 81 mg PO PM 02/24/24 09/25/24 History release isosorbide mononitrate 60 mg 60 mg PO QAM 02/24/24 09/25/24 History tablet,extended release 24 hr amlodipine 5 mg tablet (Norvasc) 5 mg PO BID #180 tabs 03/16/24 09/25/24 Rx polyethylene glycol 3350 17 17 g PO Q OTHER DAY 04/23/24 09/25/24 History gram/dose oral powder (Miralax) sevelamer HCl 800 mg tablet 800 mg PO TID 04/23/24 09/25/24 History finasteride 5 mg tablet 5 mg PO QAM #90 tabs 07/11/24 09/25/24 Rx bumetanide 2 mg tablet 4 mg PO BID 09/06/24 09/25/24 History epoetin brenda-epbx 40,000 unit/mL 40,000 unit subcut MONTHLY 09/06/24 09/25/24 History injection solution (Retacrit) insulin aspart U-100 100 unit/mL 3 unit subcut BID 09/06/24 09/25/24 History (3 mL) subcutaneous pen (Novolog FlexPen U-100 Insulin aspart) insulin glargine 100 unit/mL (3 12 unit subcut HS 09/06/24 09/25/24 History mL) subcutaneous pen (Lantus Solostar U-100 Insulin) sodium bicarbonate 650 mg tablet 650 mg PO BID 09/06/24 09/25/24 History tamsulosin 0.4 mg capsule 0.4 mg PO QAM 09/12/24 09/25/24 History ticagrelor 90 mg tablet (Brilinta) 90 mg PO BID #60 tabs 09/18/24 09/25/24 Rx Patient History Medical History Peritoneal dialysis catheter in situ PD every day - follows with neph dr. 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 > 50% stenosis external carotid arteries bilaterally admit to [facility]/ stroke like symptoms- d/c 09/09/24 Limb alert care status left arm Presence of arteriovenous fistula for hemodialysis Left Wrist Arteriovenous Fistula Creation BPH (benign prostatic hyperplasia) Foot drop, right Hx of cardiac arrhythmia reason pt had heart cath several yrs ago, unsure exactly what it was, controlled now per pt CHF (congestive heart failure) no longer follows with Dr. Marshall in [place] Left renal mass Vitamin D deficiency Anemia Depression, unspecified HTN (hypertension) controlled, stable per pt Hx of Guillain-[place] syndrome 2012 Diabetes mellitus NIDDM Dyslipidemia End stage renal disease PD every day - follows with neph dr. hidalgo Hx pulmonary embolism 2007 > warfarin for this > due to prolonged travel > later discovered has a clotting disorder, a few cousins have it as well, but pt unsure of the name of the disorder Edema RLE (chronic issue x years after nerve procedure) Surgical History History of surgery (04/24/24) Continuous Ambulatory Peritoneal Dialysis Catheter 03/15/24 and 04/24/24 History of esophagogastroduodenoscopy (EGD) Hx of foot surgery right, nerve surgery > caused foot drop History of back surgery lumbar Hx of cardiac catheterization Remote hx many yrs ago > no stents - [facility] Follows w/ Dr. Marshall/[place] - no longer sees Hx of colonoscopy Hx of bilateral hip replacements History of tonsillectomy Family History Brother Cancer Father Hypertension Diabetes Heart disease Dementia Mother Diabetes Social History Smoking Status: Never smoker Tobacco Type: Cigarettes Second Hand Exposure: No; Do You Dip or Chew Tobacco: No; Hx Alcohol Use: No Hx Substance Use: No Preferred Language: Bolivian Communication Ability: Effective Visual Impairment: Limited Hearing Ability: Normal Store Protection Specialist Required: No Beliefs That Will Affect Care: None marital status: / Current Living Situation: Family Current Living Situation Comment: with daughter current occupational status: retired Feels Safe at Home: Yes Diet: low salt caffeine: Yes (1 coffee daily) Physical Activity Frequency: Does not Exercise Do you think of yourself as: straight/heterosexual Gender Identity: Male Assistive Devices: Cane and Walker Review of Systems Review of Systems: All systems reviewed & are unremarkable except as noted in HPI & below Physical Exam Constitutional: WD/WN, vitals as above cooperative and comfortable; not in distress Neck: trachea midline L supraclavicular incision C/D/I, moderate resolving ecchymosis, miniimal tenderness.No swelling. Respiratory: normal respiratory effort, lungs clear to auscultation Auscultation: + diminished lung sounds Cardiovascular: Rate/Rhythm: regular rate and regular rhythm Vessels: posterior tibial pulses present, dorsalis pedis pulses present and radial pulses present; + abnormal peripheral pulses Extremities: normal capillary refill Gastrointestinal (Abdomen): Inspection/Auscultation: abdomen normal to inspection (PD catheter noted) and normal bowel sounds Percussion/Palpation: abdomen soft; abdomen nontender Musculoskeletal: no cyanosis or clubbing, extremities motor strength 5/5 Skin: no rashes, warm and dry Neurologic: moves all extremities and awake; no focal motor deficits and not confused Psychiatric: A+Ox3, euthymic affect Results & Data Vital Signs (Past 12 Hours) Vital Signs Temp Pulse Pulse Resp BP BP Pulse Ox 09/26/24 15:31 36.5 C 66 20 154/59 H 98 09/26/24 15:15 09/26/24 14:05 36.4 C L 62 16 149/68 H 97 09/26/24 13:34 36.4 C L 62 18 150/75 H 97 09/26/24 13:31 36.5 C 66 20 130/80 09/26/24 13:16 36.4 C L 67 18 145/74 H 09/26/24 11:31 36.4 C L 63 18 148/67 H 96 09/26/24 08:25 60 09/26/24 07:34 36.4 C L 63 18 173/70 H 96 O2 Del Method O2 Flow Rate 09/26/24 15:31 Nasal Cannula 2 09/26/24 15:15 Nasal Cannula 2 09/26/24 14:05 09/26/24 13:34 09/26/24 13:31 09/26/24 13:16 09/26/24 11:31 Room Air 09/26/24 08:25 09/26/24 07:34 Room Air
[2024-09-26 15:54] LABS: Bilirubin,Total 0.4 mg/dl (0.2-1.0); Calcium 8.6 mg/dl (8.6-10.3); Magnesium 1.9 mg/dl (1.7-2.4); Potassium 3.7 mmol/L (3.5-5.1)
[2024-09-26 16:04] LABS: Microcytosis Present
[2024-09-26 16:05] LABS: INR 1.6 (0.9-1.1); Partial Thromboplastin Ratio 1.6; Partial Thromboplastin Time 43 Seconds (21-31); Prothrombin Time 16.9 Seconds (9.0-12.0)
[2024-09-26 16:06] LABS: Albumin Globulin Ratio 1.1 (0.9-2); BUN Creatinine Ratio 13.2 (10-20); Creatinine Clr Calc Pharmacy 10.7 ml/min; Globulin 2.7 gm/dl (2.5-4.0); Total Protein 5.7 gm/dl (6.0-8.3); Troponin I High Sensitivity 2140.4 pg/ml (0-20)
--- NOTE | 2024-09-26 18:16 | Electrocardiogram Report ---
Test Reason : Blood Pressure : */* mmHG Vent. Rate : 64 BPM Atrial Rate : 64 BPM P-R Int : 200 ms QRS Dur : 126 ms QT Int : 466 ms P-R-T Axes : 42 29 164 degrees QTcB Int : 480 ms Normal sinus rhythm Left ventricular hypertrophy with QRS widening and repolarization abnormality Abnormal ECG When compared with ECG of 25-Sep-2024 20:18, ST no longer elevated in Anterior leads Confirmed by Edgar Davey ([id number]) on 09/26/2024 6:16:31 PM Referred By: REFERRED SELF Confirmed By: Edgar Davey
--- NOTE | 2024-09-26 18:33 | Electrocardiogram Report ---
Test Reason : Blood Pressure : */* mmHG Vent. Rate : 65 BPM Atrial Rate : 65 BPM P-R Int : 208 ms QRS Dur : 128 ms QT Int : 456 ms P-R-T Axes : 38 30 161 degrees QTcB Int : 474 ms Normal sinus rhythm Left ventricular hypertrophy with QRS widening and repolarization abnormality Abnormal ECG When compared with ECG of 26-Sep-2024 10:43, (unconfirmed) No significant change was found Confirmed by Edgar Davey ([id number]) on 09/26/2024 6:33:11 PM Referred By: REFERRED SELF Confirmed By: Edgar Davey
[2024-09-26 18:41] LABS: ANTI-Xa, UFH(UnfractionatedHep < 0.10 IU/ml (0.3-0.7)
[2024-09-26] MEDS: ASPIRIN 81 MG ECTAB PO SCH (20:39)
[2024-09-26] MEDS: SERTRALINE HCL 50 MG TABLET PO SCH (20:42)
[2024-09-26] MEDS: SERTRALINE HCL 100 MG TABLET PO SCH (20:43)
[2024-09-26] MEDS ORDERED: Nursing to Pharmacy Communication SCH (21:00)
[2024-09-27] MEDS: INSULIN ASPART PER UNIT CHARGE SC SCH ×2 (00:32→12:08)
[2024-09-27 06:04] LABS: Basophils # (auto) 0.04 K/uL (0.00-0.20); Basophils % (auto) 0.5 %; Eosinophils # (auto) 0.21 K/uL (0.00-0.50); Eosinophils % (auto) 2.8 %; Hematocrit (blood only) 24.4 % (42.0-52.0); Hemoglobin 8.1 g/dl (14.0-18.0); Immature Granulocytes # (auto) 0.09 K/uL (0.01-0.20); Immature Granulocytes % (auto) 1.2 %; Lymphocytes # (auto) 1.08 K/uL (1.20-3.40); Lymphocytes % (auto) 14.4 %; Mean Corpuscular Hgb Conc 33.2 g/dL (32.0-36.0); Mean Corpuscular Volume 90.4 fL (80.0-100.0); Mean Platelet Volume 10.1 fL (9.4-12.4); Monocytes # (auto) 0.62 K/uL (0.11-0.59); Monocytes % (auto) 8.2 %; Neutrophils # (auto) 5.48 K/uL (1.40-6.50); Neutrophils % (auto) 72.9 %; Platelet Count 218 K/uL (130-400); RDW Coefficient of Variation 13.2 % (11.5-14.5); RDW Standard Deviation 42.9 fL (36.4-46.3); White Blood Count 7.52 K/ul (4.8-10.8)
[2024-09-27 06:09] LABS: INR 1.6 (0.9-1.1); Prothrombin Time 16.3 Seconds (9.0-12.0)
[2024-09-27 06:14] LABS: Calcium 8.8 mg/dl (8.6-10.3); Magnesium 2.1 mg/dl (1.7-2.4); Potassium 3.7 mmol/L (3.5-5.1)
[2024-09-27 06:21] LABS: BUN Creatinine Ratio 13.7 (10-20); Creatinine Clr Calc Pharmacy 11.3 ml/min; Phosphorus 6.3 mg/dl (2.5-4.9)
[2024-09-27 06:41] LABS: Ferritin 702.6 ng/ml (8-388)
[2024-09-27] MEDS: Nursing to Pharmacy Communication SCH (08:46)
--- NOTE | 2024-09-27 08:53 | Nephrology Progress Note ---
Date of Service September 27, 2024 Assessment & Plan (1) End-stage renal disease needing dialysis: Plan: * NCCPD complicated last evening with slow drain alarm. No fibrin in tubing, effluent was clear. Net 300 cc UF obtained * Patient appears clinically euvolemic. Electrolyte balance is acceptable. * Will provide peritoneal dialysis again this evening * Outpatient NCC[facility]: start at 8 PM, 4 exchanges/night, 2 L fill volume, 2.5% Delflex, Fill 10 minutes/dwell 90 minutes/drain 20 minutes, EDW 95 kg * N[facility]PD orders were placed in the EMR and on-call HD RN notified * BMP in am * Continue bumetanide. Monitor UO (2) Vision loss of right eye: Plan: * Blind in L eye * New onset R vision loss * CTA neck, cerebral vessels - 80% R ICA stenosis * Vascular surgery planning R TCAR on Tuesday10/01/24 (3) Anemia: Plan: * Agree w/ blood transfusion to maintain Hgb 9-10 * Iron saturation 27%, ferritin 702 (4) NSTEMI (non-ST elevated myocardial infarction): Plan: * Echo without WMA. Recommended transfusion to maintain Hgb 9-10 (5) Diabetes mellitus with neuropathy: (6) Guillain Jean Baptiste syndrome: Admission and Anticipated Discharge Date Admission Date: September 26, 2024 Subjective Mr. Desai was evaluated in his hospital room this morning. NCCPD complicated by frequent alarms last evening. balance staff staker reports no fibrin in the tubing, effluent remained clear. No new medical concerns voiced Review of Systems Constitutional: no fever Eyes: + worsening vision (acute vision loss R eye, no vision L eye) Ear, Nose, Mouth, Throat: no problem reported Respiratory: no cough and no dyspnea Cardiovascular: no chest pain and no palpitations Gastrointestinal: no abdominal pain, no nausea, no vomiting and no diarrhea/ loose stools Genitourinary: no dysuria or no difficulty urinating Neurologic: no problem reported Physical Exam Constitutional: not in distress Eyes: PERRL, conjunctivae normal, anicteric sclerae ENMT: external ear and nose normal, oropharynx normal Neck: trachea midline, no thyromegaly Respiratory: normal respiratory effort, lungs clear to auscultation Cardiovascular: RRR, no murmur, no edema Gastrointestinal (Abdomen): normal bowel sounds, soft, nontender, no hepatosplenomegaly (PD exit site w/ clean, dry dressing in place) Musculoskeletal: Extremities: no cyanosis and no clubbing Skin: no rashes, warm and dry Neurologic: awake; not confused Results & Data Vital Signs (Past 12 Hours) Vital Signs Temp Pulse Pulse Resp BP BP Pulse Ox 09/27/24 07:00 36.5 C 69 14 148/58 H 95 09/27/24 02:37 36.6 C 65 18 180/62 H 95 09/26/24 22:27 36.5 C 71 18 151/66 H 93 09/26/24 21:45 68 O2 Del Method 09/27/24 07:00 Room Air 09/27/24 02:37 Room Air 09/26/24 22:27 Room Air 09/26/24 21:45 Laboratory Results Laboratory Results - last 24 hr 09/25/24 09/26/24 09/26/24 20:59 10:39 12:13 WBC RBC Hgb 7.8 L Hct 23.6 L MCV MCH MCHC RDW Std Deviation RDW Coeff of Severiano Plt Count MPV Immature Gran % (Auto) Neut % (Auto) Lymph % (Auto) [place] % (Auto) Eos % (Auto) Baso % (Auto) Neut # (Auto) Lymph # (Auto) [place] # (Auto) Eos # (Auto) Baso # (Auto) Immature Gran # (Auto) Microcytosis PT INR APTT PTT Ratio Heparin Anti-Xa, Unfract 0.22 L Sodium Potassium Chloride Carbon Dioxide Anion Gap BUN Creatinine Est Cr Clr Drug Dosing eGFR BUN/Creatinine Ratio Glucose POC Glucose Calcium Phosphorus Magnesium Iron TIBC Transferrin Transferrin % Sat Ferritin Total Bilirubin AST ALT Alkaline Phosphatase Troponin I High Sens 2354.1 H* Total Protein Albumin Globulin Albumin/Globulin Ratio Blood Type A Positive Antibody Screen NEGATIVE Crossmatch See Detail Transfusion React Date Transfusion React Time Tx React Symptoms Reaction Clerical Check Lab Clerical Err Check React Component Return Volume Returned Pre-Trans Blood Type Pre-Trans Vis Hemolysis Pre-Trans SADIE Pre-Trans SDAIE IgG Pre-Trans SADIE Poly Pre-Trans SADIE C3b, C3d Post-Trans Blood Type Post-Tx Visible Hemolys Post-Trans SADIE Post-Trans SADIE IgG Post-Trans SADIE Poly Post-Trans SADIE C3b, C3d Post-Trans Ur Hemoglobin Reaction Path Interpret Transfusion Serv Com 09/26/24 09/26/24 09/26/24 12:15 15:09 15:21 WBC 6.61 RBC 2.40 L Hgb 7.2 L Hct 21.8 L MCV 90.8 MCH 30.0 MCHC 33.0 RDW Std Deviation 43.2 RDW Coeff of Severiano 13.1 Plt Count 192 MPV 9.5 Immature Gran % (Auto) 0.6 Neut % (Auto) 71.2 Lymph % (Auto) 16.6 [place] % (Auto) 7.9 Eos % (Auto) 2.9 Baso % (Auto) 0.8 Neut # (Auto) 4.71 Lymph # (Auto) 1.10 L [place] # (Auto) 0.52 Eos # (Auto) 0.19 Baso # (Auto) 0.05 Immature Gran # (Auto) 0.04 Microcytosis Present PT 16.9 H INR 1.6 H APTT 43 H PTT Ratio 1.6 Heparin Anti-Xa, Unfract Sodium 136 Potassium 3.7 Chloride 98 Carbon Dioxide 26 Anion Gap 12 H BUN 95 H Creatinine 7.22 H* Est Cr Clr Drug Dosing 10.7 eGFR 7.55 BUN/Creatinine Ratio 13.2 Glucose 212 H POC Glucose 186 H 234 H Calcium 8.6 Phosphorus Magnesium 1.9 Iron TIBC Transferrin Transferrin % Sat Ferritin Total Bilirubin 0.4 AST 22 ALT 4 L Alkaline Phosphatase 45 Troponin I High Sens 2140.4 H* Total Protein 5.7 L Albumin 3.0 L Globulin 2.7 Albumin/Globulin Ratio 1.1 Blood Type Antibody Screen Crossmatch Transfusion React Date Transfusion React Time Tx React Symptoms Reaction Clerical Check Lab Clerical Err Check React Component Return Volume Returned Pre-Trans Blood Type Pre-Trans Vis Hemolysis Pre-Trans SADIE Pre-Trans SADIE IgG Pre-Trans SADIE Poly Pre-Trans SADIE C3b, C3d Post-Trans Blood Type Post-Tx Visible Hemolys Post-Trans SADIE Post-Trans SADIE IgG Post-Trans SADIE Poly Post-Trans SADIE C3b, C3d Post-Trans Ur Hemoglobin Reaction Path Interpret Transfusion Serv Com 09/26/24 09/26/24 09/26/24 15:59 17:55 17:57 WBC RBC Hgb Hct MCV MCH MCHC RDW Std Deviation RDW Coeff of Severiano Plt Count MPV Immature Gran % (Auto) Neut % (Auto) Lymph % (Auto) [place] % (Auto) Eos % (Auto) Baso % (Auto) Neut # (Auto) Lymph # (Auto) [place] # (Auto) Eos # (Auto) Baso # (Auto) Immature Gran # (Auto) Microcytosis PT INR APTT PTT Ratio Heparin Anti-Xa, Unfract Sodium Potassium Chloride Carbon Dioxide Anion Gap BUN Creatinine Est Cr Clr Drug Dosing eGFR BUN/Creatinine Ratio Glucose POC Glucose 321 H* 266 H Calcium Phosphorus Magnesium Iron TIBC Transferrin Transferrin % Sat Ferritin Total Bilirubin AST ALT Alkaline Phosphatase Troponin I High Sens 2121.2 H* Total Protein Albumin Globulin Albumin/Globulin Ratio Blood Type Antibody Screen Crossmatch Transfusion React Date Pending Transfusion React Time Pending Tx React Symptoms Pending Reaction Clerical Check Pending Lab Clerical Err Check Pending React Component Return Pending Volume Returned Pending Pre-Trans Blood Type Pending Pre-Trans Vis Hemolysis Pending Pre-Trans SADIE Pending Pre-Trans SADIE IgG Pending Pre-Trans SADIE Poly Pending Pre-Trans SADIE C3b, C3d Pending Post-Trans Blood Type Pending Post-Tx Visible Hemolys Pending Post-Trans SADIE Pending Post-Trans SADIE IgG Pending Post-Trans SADIE Poly Pending Post-Trans SADIE C3b, C3d Pending Post-Trans Ur Hemoglobin Pending Reaction Path Interpret Pending Transfusion Serv Com Pending 09/26/24 09/27/24 09/27/24 18:10 00:29 05:20 WBC 7.52 RBC 2.70 L Hgb 8.1 L Hct 24.4 L MCV 90.4 MCH 30.0 MCHC 33.2 RDW Std Deviation 42.9 RDW Coeff of Severiano 13.2 Plt Count 218 MPV 10.1 Immature Gran % (Auto) 1.2 Neut % (Auto) 72.9 Lymph % (Auto) 14.4 [place] % (Auto) 8.2 Eos % (Auto) 2.8 Baso % (Auto) 0.5 Neut # (Auto) 5.48 Lymph # (Auto) 1.08 L [place] # (Auto) 0.62 H Eos # (Auto) 0.21 Baso # (Auto) 0.04 Immature Gran # (Auto) 0.09 Microcytosis PT 16.3 H INR 1.6 H APTT PTT Ratio Heparin Anti-Xa, Unfract < 0.10 L Sodium 136 Potassium 3.7 Chloride 98 Carbon Dioxide 28 Anion Gap 10 BUN 93 H Creatinine 6.80 H* D Est Cr Clr Drug Dosing 11.3 eGFR 8.11 BUN/Creatinine Ratio 13.7 Glucose 204 H POC Glucose 265 H Calcium 8.8 Phosphorus 6.3 H Magnesium 2.1 Iron 98 TIBC 360 Transferrin 257 Transferrin % Sat 27 Ferritin 702.6 H Total Bilirubin AST ALT Alkaline Phosphatase Troponin I High Sens 2014.7 H* Total Protein Albumin Globulin Albumin/Globulin Ratio Blood Type Antibody Screen Crossmatch Transfusion React Date Transfusion React Time Tx React Symptoms Reaction Clerical Check Lab Clerical Err Check React Component Return Volume Returned Pre-Trans Blood Type Pre-Trans Vis Hemolysis Pre-Trans SADIE Pre-Trans SADIE IgG Pre-Trans SADIE Poly Pre-Trans SADIE C3b, C3d Post-Trans Blood Type Post-Tx Visible Hemolys Post-Trans SADIE Post-Trans SADIE IgG Post-Trans SADIE Poly Post-Trans SADIE C3b, C3d Post-Trans Ur Hemoglobin Reaction Path Interpret Transfusion Serv Com PG Care Time/CCT Total # of Minutes Spent Total Time Spent with Patient: Total time spent is greater than 50% in coordination of care (as documented) at patient's floor/unit and/or counseling patient: Coding Level of Care Code 03271 SUB INP/OBS CARE 3/50MIN Diagnoses End-stage renal disease needing dialysis N18.6; Z99.2 Vision loss of right eye H54.61 Anemia D64.9 NSTEMI (non-ST elevated myocardial infarction) I21.4 Diabetes mellitus with neuropathy E11.40 Guillain Jean Baptiste syndrome G61.0
[2024-09-27 10:13] LABS: Blood Urine Negative (Negative); RBC Urine Automated 0-2 /hpf (0-2)
[2024-09-27] MEDS ORDERED: Nursing to Pharmacy Communication SCH (10:45)
--- NOTE | 2024-09-27 11:39 | Hospitalist Progress Note ---
Date of Service September 27, 2024 Assessment & Plan (1) Stroke-like symptoms: Plan pt is a 69-year-old male with past medical history significant for end-stage renal disease on peritoneal dialysis, hypertension, hyperlipidemia, history of PE on chronic Coumadin, type 2 diabetes, peripheral vascular disease, CHF who presents with right ocular stroke. Patient was admitted on 08/30/2024 with left eye vision loss, outpatient ophthalmology found to have central artery occlusion and patient was admitted to hospital. Imaging studies showed high-grade stenosis of the bilateral internal and external carotid arteries. 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 Will do stroke protocol with MRI scan, echo Neurochecks Telemetry Neurology consulted, appreciate recs Vascular surgery consulted, appreciate recs 09/26- pt with worsening vision, repeat stat head CT and chest XRAY- no acute change. Holding IV heparin 09/27- to have R TCAR on Tuesday, per Vascular continue brillinta, aspirin and dtatin Non-ST elevated MD HTN Troponin 2486 Denies chest pain EKG has some ST depressions in lateral leads Has shortness on exertion Patient has history of PE on Coumadin INR is 1.8 today Follow echo Hold heparin and warfarin at this time On amlodipine, hydralazine, Imdur and Coreg Cardiac consult for further recommendation Hyperlipidemia On statin and fenofibrate History of PE Holding anticoagulation as above End-stage renal disease On peritoneal dialysis at home Continue home B[facility]ex Nephrology consulted, appreciate further recs Anemia Hemoglobin 7.7 Hemoglobin 8.5 recently Usually seems to be 9-10 range Will check stool for Hemoccult Iron studies, vitamin B12 folate levels Repeat H/H Holding anticoagulation as above 09/27- pt with attempt at blood transfusion yesterday but it was discontinued when he developed chest tightness and SOB. Hgb 8.1 today, improved from 7.2 on last check. Continue to monitor H/H Diabetes Hold glipizide and home Lantus Lantus 5 daily and sliding scale Close monitor BPH On finasteride and Flomax Monitor for urinary retention Depression On Zoloft Diet: HH/Dialysis renal, DM DVT prophylaxis: SCDs, IV heparin on hold. Monitor h and h Dispo: PT/OT for further recs Admission and Anticipated Discharge Date Admission Date: September 26, 2024 Subjective pt was seen in the AM sitting in the chair near his bed eating breakfast States that he can no longer see out of both eyes, cant make out a face. Expresses disappointment with his loss of vision Later nephrology also at bedside Review of Systems Review of Systems: All systems reviewed & are unremarkable except as noted in Subjective Physical Exam Physical Exam: General: Alert, oriented. No acute distress HEENT: decreased vision in the left eye HEENT: NC/AT CV: RRR Resp: Breath sounds decreased bilaterally, no increased effort of breathing Abdomen: Soft, nontender Extremities: No edema in lower extremities bilaterally. Results & Data Results & Data Vital Signs (Past 12 Hours) Vital Signs Temp Pulse Resp BP BP Pulse Ox O2 Del Method 09/27/24 11:00 36.4 C L 60 24 137/69 95 Room Air 09/27/24 08:08 36.5 C 69 14 09/27/24 07:00 36.5 C 69 14 148/58 H 95 Room Air 09/27/24 02:37 36.6 C 65 18 180/62 H 95 Room Air
--- NOTE | 2024-09-27 13:20 | Cardiology Progress Note ---
Date of Service September 27, 2024 Assessment & Plan (1) NSTEMI (non-ST elevated myocardial infarction): (2) Stroke-like symptoms: Plan Patient completed most of the transfusion of a unit of packed red blood cells yesterday prior to discontinuation due to abrupt onset of dyspnea/chest tightness. Received a dose of 4 mg of IV Bumex, topical nitroglycerin at that time. Hemoglobin improved to 8.2. Discontinue topical nitroglycerin. If recurrent symptoms noted, future considerations include transitioning him from Imdur to a nitroglycerin patch as an alternative. If repeat blood transfusion attempted, would perhaps split the unit and give diuretics prophylactically. INR 1.6 today. Patient is on chronic anticoagulants Coumadin given bone embolism. For now I think it is prudent to remain off of heparin bridge another day and watch his hemoglobin. Continue dual antiplatelet therapy with aspirin and Brilinta given recent carotid stent. Medical management recommended from a cardiac perspective with ongoing use of antiplatelet therapy including aspirin and Brilinta, unfractionated heparin infusion if tolerated from an anemia standpoint. Carvedilol, amlodipine, isosorbide mononitrate, hydralazine, rosuvastatin. Admission and Anticipated Discharge Date Admission Date: September 26, 2024 Subjective Patient seen in cardiology follow-up. Feeling well today. Chest pain and shortness of breath improved compared to yesterday. He was sitting upright eating his noontime meal, speaking with his sister on the phone. Patient states vision is still poor Without improvement. Telemetry reveals sinus rhythm in the 60s to 70s without atrial fibrillation. Physical Exam Physical Exam: Temp Pulse Resp BP Pulse Ox O2 Del Method O2 Flow Rate 36.4 C L 60 24 137/69 95 Room Air 2 09/27/24 11:09/27/24 11:09/27/24 11:09/27/24 11:09/27/24 11:09/27/24 11:09/26/24 15:31 General: no acute distress and stated age Eyes: conjunctiva are pink and non-injected, sclera clear Neck: normal jugular venous pulse, no hepatojugular reflux Chest: normal shape and normal respiratory effort Lungs: clear to auscultation and percussion Cardiac Exam: - regular heart sounds, 1/6 systolic murmur Abdomen: abdomen soft, non-tender, no abnormal masses and no hepatosplenomegaly Musculoskeletal: no gait disturbance, no weakness Extremities: no edema and no cyanosis Neuro:awake, conversant, follows commands, no focal motor deficits, Left eye blindness, partial visual loss of right eye Psych: appropriate affect and insight. Results & Data Vital Signs (Past 12 Hours) Vital Signs Temp Pulse Resp BP BP Pulse Ox O2 Del Method 09/27/24 11:00 36.4 C L 60 24 137/69 95 Room Air 09/27/24 08:08 36.5 C 69 14 09/27/24 07:00 36.5 C 69 14 148/58 H 95 Room Air 09/27/24 02:37 36.6 C 65 18 180/62 H 95 Room Air Laboratory Results Cardiac Enzymes 09/26/24 09/26/24 09/26/24 Range/Units 15:09 15:59 18:10 AST 22 (13-39) U/L Troponin I High Sens 2140.4 H* 2121.2 H* 2014.7 H* (0-20) pg/ml Coagulation 09/26/24 09/27/24 Range/Units 15:09 05:20 PT 16.9 H 16.3 H (9.0-12.0) Seconds APTT 43 H (21-31) Seconds CBC 09/26/24 09/27/24 Range/Units 15:09 05:20 WBC 6.61 7.52 (4.8-10.8) K/ul RBC 2.40 L 2.70 L (4.70-6.10) M/uL Hgb 7.2 L 8.1 L (14.0-18.0) g/dl Hct 21.8 L 24.4 L (42.0-52.0) % Plt Count 192 218 (130-400) K/uL Neut # (Auto) 4.71 5.48 (1.40-6.50) K/uL Lymph # (Auto) 1.10 L 1.08 L (1.20-3.40) K/uL [place] # (Auto) 0.52 0.62 H (0.11-0.59) K/uL Eos # (Auto) 0.19 0.21 (0.00-0.50) K/uL Baso # (Auto) 0.05 0.04 (0.00-0.20) K/uL Comprehensive Metabolic Panel 09/26/24 09/27/24 Range/Units 15:09 05:20 Sodium 136 136 (136-145) mmol/L Potassium 3.7 3.7 (3.5-5.1) mmol/L Chloride 98 98 (98-107) mmol/L Carbon Dioxide 26 28 (21-32) mmol/L BUN 95 H 93 H (6-23) mg/dl Creatinine 7.22 H* 6.80 H* D (0.6-1.4) mg/dl Glucose 212 H 204 H (70-99(Fasting)) mg/dl Calcium 8.6 8.8 (8.6-10.3) mg/dl AST 22 (13-39) U/L ALT 4 L (7-52) U/L Alkaline Phosphatase 45 (34-104) U/L Total Protein 5.7 L (6.0-8.3) gm/dl Albumin 3.0 L (3.4-5.0) gm/dl Intake and Output 09/26/24 09/27/24 09/27/24 22:59 06:59 14:59 Intake Total 150 / 1087.60 Output Total 300 / 602 1 / 602 560 / 560 Balance -150 / 485.60 -1 / 485.60 -560 / -560 Intake: Intake (Blood Product) Amt 150 / 150 Packed Cells, Leukoreduced 150 / 150 Unit [id number] Output: Urine 300 / 600 250 / 250 Peritoneal Dialysis 309 / 309 Ultrafiltration Amount # Bowel Movements 1 / 2 Other: Weight 95.3 kg 94.4 kg Weight Measurement Method Built in [facility]
--- NOTE | 2024-09-27 14:18 | Surgery Progress Note ---
Date of Service September 27, 2024 Assessment & Plan (1) Symptomatic stenosis of right carotid artery: Plan: Planning on right tcar on Tuesday. Continue his brilinta, asa, and statin. Admission and Anticipated Discharge Date Admission Date: September 26, 2024 Subjective No new complaints. Physical Exam Constitutional: WD/WN, vitals as above Respiratory: normal respiratory effort; no respiratory distress Cardiovascular: Rate/Rhythm: regular rate and regular rhythm Psychiatric: A+Ox3, euthymic affect Results & Data Vital Signs (Past 12 Hours) Vital Signs Temp Pulse Resp BP BP Pulse Ox O2 Del Method 09/27/24 14:12 167/68 H 09/27/24 11:00 36.4 C L 60 24 137/69 95 Room Air 09/27/24 08:08 36.5 C 69 14 09/27/24 07:00 36.5 C 69 14 148/58 H 95 Room Air 09/27/24 02:37 36.6 C 65 18 180/62 H 95 Room Air
[2024-09-27] MEDS: GENTAMICIN SULFATE 0.1% CR 15 GM TUBE EXT SCH (15:39)
[2024-09-27] MEDS: FENOFIBRATE PO SCH (21:38)
[2024-09-28] MEDS: POLYETHYLENE (MIRALAX) 17 GM PACK PO PRN (08:54)
--- NOTE | 2024-09-28 08:57 | Communication Note ---
Date of Service: September 28, 2024 Plan is for a right TCAR Tuesday due to symptomatic right carotid stenosis. Continue DAPT and statin I have discussed the risks options and benefits of the procedure with the patient. The patient understands the risks options and benefits and agrees to the procedure.
--- NOTE | 2024-09-28 09:06 | Nephrology Progress Note ---
Date of Service September 28, 2024 Assessment & Plan (1) End-stage renal disease needing dialysis: Plan: * NCCPD complicated last evening without complication * Patient appears clinically euvolemic. Electrolyte balance is acceptable. * Will provide peritoneal dialysis again this evening * Outpatient NCCPD: start at 8 PM, 4 exchanges/night, 2 L fill volume, 2.5% Delflex, Fill 10 minutes/dwell 90 minutes/drain 20 minutes, EDW 95 kg * NCCPD orders were placed in the EMR and on-call HD RN notified * BMP in am * Continue bumetanide. Monitor UO (2) Vision loss of right eye: Plan: * Blind in L eye * New onset R vision loss * CTA neck, cerebral vessels - 80% R ICA stenosis * Vascular surgery planning R TCAR on Tuesday10/01/24 (3) Anemia: Plan: * Agree w/ blood transfusion to maintain Hgb 9-10 * Iron saturation 27%, ferritin 702 * Will provide one dose IV venofer * Will provide epogen 10,000 units SQ x1 (4) NSTEMI (non-ST elevated myocardial infarction): Plan: * Echo without WMA. Recommended transfusion to maintain Hgb 9-10 (5) Diabetes mellitus with neuropathy: (6) Guillain Jean Baptiste syndrome: Admission and Anticipated Discharge Date Admission Date: September 26, 2024 Subjective Mr. Desai was evaluated in his hospital room this morning. He denied ARAGON. No improvement in vision. He received NCCPD last evening without complication. 1500 cc UF obtained. No new medical concerns voiced Review of Systems Constitutional: no fever Eyes: + worsening vision (acute vision loss R eye, no vision L eye) Ear, Nose, Mouth, Throat: no problem reported Respiratory: no cough and no dyspnea Cardiovascular: no chest pain and no palpitations Gastrointestinal: no abdominal pain, no nausea, no vomiting and no diarr hea/loose stools Genitourinary: no dysuria or no difficulty urinating Neurologic: no problem reported Physical Exam Constitutional: not in distress Eyes: PERRL, conjunctivae normal, anicteric sclerae ENMT: external ear and nose normal, oropharynx normal Neck: trachea midline, no thyromegaly Respiratory: normal respiratory effort, lungs clear to auscultation Cardiovascular: RRR, no murmur, no edema Extremities: + AV fistula (+ bruit) Gastrointestinal (Abdomen): normal bowel sounds, soft, nontender, no hepatosplenomegaly (PD exit site w/ clean, dry dressing in place) Musculoskeletal: Extremities: no cyanosis and no clubbing Skin: no rashes, warm and dry Neurologic: awake; not confused Results & Data Vital Signs (Past 12 Hours) Vital Signs Temp Pulse Pulse Resp BP Pulse Ox O2 Del Method 09/28/24 07:14 36.6 C 64 18 173/64 H 95 Room Air 09/28/24 04:12 36.6 C 66 20 178/64 H 96 Room Air 09/28/24 00:01 36.5 C 67 18 148/55 H 96 Room Air 09/28/24 00:00 66 Laboratory Results Laboratory Results - last 24 hr 09/26/24 09/27/24 09/27/24 15:59 09:55 11:05 POC Glucose 250 H Urine Blood Negative Urine RBC (Auto) 0-2 Transfusion React Date 09/26/24 Transfusion React Time 1559 Tx React Symptoms SOB, VISION Reaction Clerical Check None Found Lab Clerical Err Check None Found React Component Return PLCR Volume Returned 160 ml Pre-Trans Blood Type A POSITIVE Pre-Trans Vis Hemolysis No Pre-Trans SADIE Negative Pre-Trans SADIE IgG Neg Pre-Trans SADIE Poly Neg Pre-Trans SAIDE C3b, C3d Neg Post-Trans Blood Type A POSITIVE Post-Tx Visible Hemolys No Post-Trans SADIE Negative Post-Trans SADIE IgG Neg Post-Trans SADIE Poly Neg Post-Trans SADIE C3b, C3d Neg Post-Trans Ur Hemoglobin Reaction Path Interpret Transfusion Serv Com 09/27/24 09/27/24 09/27/24 16:09 20:09 20:12 POC Glucose 271 H 306 H* 270 H Urine Blood Urine RBC (Auto) Transfusion React Date Transfusion React Time Tx React Symptoms Reaction Clerical Check Lab Clerical Err Check React Component Return Volume Returned Pre-Trans Blood Type Pre-Trans Vis Hemolysis Pre-Trans SADIE Pre-Trans SADIE IgG Pre-Trans SADIE Poly Pre-Trans SADIE C3b, C3d Post-Trans Blood Type Post-Tx Visible Hemolys Post-Trans SADIE Post-Trans SADIE IgG Post-Trans SADIE Poly Post-Trans SADIE C3b, C3d Post-Trans Ur Hemoglobin Reaction Path Interpret Transfusion Serv Com 09/28/24 09/28/24 03:13 07:13 POC Glucose 231 H 223 H Urine Blood Urine RBC (Auto) Transfusion React Date Transfusion React Time Tx React Symptoms Reaction Clerical Check Lab Clerical Err Check React Component Return Volume Returned Pre-Trans Blood Type Pre-Trans Vis Hemolysis Pre-Trans SADIE Pre-Trans SADIE IgG Pre-Trans SADIE Poly Pre-Trans SADIE C3b, C3d Post-Trans Blood Type Post-Tx Visible Hemolys Post-Trans SADIE Post-Trans SADIE IgG Post-Trans SADIE Poly Post-Trans SADIE C3b, C3d Post-Trans Ur Hemoglobin Reaction Path Interpret Transfusion Serv Com Laboratory Results - last 24 hr 09/26/24 09/27/24 09/27/24 15:59 11:05 16:09 POC Glucose 250 H 271 H Transfusion React Date 09/26/24 Transfusion React Time 1559 Tx React Symptoms SOB, VISION Reaction Clerical Check None Found Lab Clerical Err Check None Found React Component Return PLCR Volume Returned 160 ml Pre-Trans Blood Type A POSITIVE Pre-Trans Vis Hemolysis No Pre-Trans SADIE Negative Pre-Trans SADIE IgG Neg Pre-Trans SADIE Poly Neg Pre-Trans SADIE C3b, C3d Neg Post-Trans Blood Type A POSITIVE Post-Tx Visible Hemolys No Post-Trans SADIE Negative Post-Trans SADIE IgG Neg Post-Trans SADIE Poly Neg Post-Trans SADIE C3b, C3d Neg Post-Trans Ur Hemoglobin Reaction Path Interpret Transfusion Serv Com 09/27/24 09/27/24 09/28/24 20:09 20:12 03:13 POC Glucose 306 H* 270 H 231 H Transfusion React Date Transfusion React Time Tx React Symptoms Reaction Clerical Check Lab Clerical Err Check React Component Return Volume Returned Pre-Trans Blood Type Pre-Trans Vis Hemolysis Pre-Trans SADIE Pre-Trans SADIE IgG Pre-Trans SADIE Poly Pre-Trans SADIE C3b, C3d Post-Trans Blood Type Post-Tx Visible Hemolys Post-Trans SADIE Post-Trans SADIE IgG Post-Trans SADIE Poly Post-Trans SADIE C3b, C3d Post-Trans Ur Hemoglobin Reaction Path Interpret Transfusion Serv Com 09/28/24 07:13 POC Glucose 223 H Transfusion React Date Transfusion React Time Tx React Symptoms Reaction Clerical Check Lab Clerical Err Check React Component Return Volume Returned Pre-Trans Blood Type Pre-Trans Vis Hemolysis Pre-Trans SADIE Pre-Trans SADIE IgG Pre-Trans SADIE Poly Pre-Trans SADIE C3b, C3d Post-Trans Blood Type Post-Tx Visible Hemolys Post-Trans SADIE Post-Trans SADIE IgG Post-Trans SADIE Poly Post-Trans SADIE C3b, C3d Post-Trans Ur Hemoglobin Reaction Path Interpret Transfusion Serv Com Laboratory Results - last 24 hr 09/26/24 09/27/24 09/27/24 15:59 11:05 16:09 POC Glucose 250 H 271 H Transfusion React Date 09/26/24 Transfusion React Time 1559 Tx React Symptoms SOB, VISION Reaction Clerical Check None Found Lab Clerical Err Check None Found React Component Return PLCR Volume Returned 160 ml Pre-Trans Blood Type A POSITIVE Pre-Trans Vis Hemolysis No Pre-Trans SADIE Negative Pre-Trans SADIE IgG Neg Pre-Trans SADIE Poly Neg Pre-Trans SADIE C3b, C3d Neg Post-Trans Blood Type A POSITIVE Post-Tx Visible Hemolys No Post-Trans SADIE Negative Post-Trans SADIE IgG Neg Post-Trans SADIE Poly Neg Post-Trans SADIE C3b, C3d Neg Post-Trans Ur Hemoglobin Reaction Path Interpret Transfusion Serv [employer] 09/27/24 09/27/24 09/28/24 20:09 20:12 03:13 POC Glucose 306 H* 270 H 231 H Transfusion React Date Transfusion React Time Tx React Symptoms Reaction Clerical Check Lab Clerical Err Check React Component Return Volume Returned Pre-Trans Blood Type Pre-Trans Vis Hemolysis Pre-Trans SADIE Pre-Trans SADIE IgG Pre-Trans SADIE Poly Pre-Trans SADIE C3b, C3d Post-Trans Blood Type Post-Tx Visible Hemolys Post-Trans SADIE Post-Trans SADIE IgG Post-Trans SADIE Poly Post-Trans SADIE C3b, C3d Post-Trans Ur Hemoglobin Reaction Path Interpret Transfusion Serv Com 09/28/24 07:13 POC Glucose 223 H Transfusion React Date Transfusion React Time Tx React Symptoms Reaction Clerical Check Lab Clerical Err Check React Component Return Volume Returned Pre-Trans Blood Type Pre-Trans Vis Hemolysis Pre-Trans SADIE Pre-Trans SADIE IgG Pre-Trans SADIE Poly Pre-Trans SADIE C3b, C3d Post-Trans Blood Type Post-Tx Visible Hemolys Post-Trans SADIE Post-Trans SADIE IgG Post-Trans SADIE Poly Post-Trans SADIE C3b, C3d Post-Trans Ur Hemoglobin Reaction Path Interpret Transfusion Serv [employer] 09/28/24 5am labs - pending PG Care Time/CCT Total # of Minutes Spent Total Time Spent with Patient: Total time spent is greater than 50% in coordination of care (as documented) at patient's floor/unit and/or counseling patient: Coding Level of Care Code 86233 SUB INP/OBS CARE 3/50MIN Diagnoses End-stage renal disease needing dialysis N18.6; Z99.2 Vision loss of right eye H54.61 Anemia D64.9 NSTEMI (non-ST elevated myocardial infarction) I21.4 Diabetes mellitus with neuropathy E11.40 Guillain Jean Baptiste syndrome G61.0
--- NOTE | 2024-09-28 10:51 | Cardiology Progress Note ---
Date of Service September 28, 2024 Assessment & Plan (1) NSTEMI (non-ST elevated myocardial infarction): (2) Stroke-like symptoms: Plan Patient completed most of the transfusion of a unit of packed red blood cells 09/26/24 prior to discontinuation due to abrupt onset of dyspnea/chest tightness. Received a dose of 4 mg of IV Bumex, topical nitroglycerin at that I spent a total of I spent a total of [] minutes on the date of service in preparation, delivery, and documentation of the care provided to this patient, excluding any time spent in the performance of separately billed services.with resolution of symptoms. Hemoglobin improved to 8.1 g/dl. Discontinued topical nitroglycerin on 09/27/24. If recurrent symptoms noted, future considerations include transitioning him from Imdur to a nitroglycerin patch as an alternative. If repeat blood transfusion attempted, would perhaps split the unit and give diuretics prophylactically. INR 1.6 on 09/27. Patient is on chronic anticoagulants Coumadin given h/o pulmonary embolism. For now I think it is prudent to remain off of heparin bridge another day and watch his hemoglobin. Continue SQ heparin DVT prophylaxis dose in the interim. Continue dual antiplatelet therapy with aspirin and Brilinta given recent carotid stent. Medical management recommended from a cardiac perspective with ongoing use of antiplatelet therapy including aspirin and Brilinta, unfractionated heparin infusion if tolerated from an anemia standpoint. Carvedilol, amlodipine, isosorbide mononitrate, hydralazine, rosuvastatin. Patient felt to have had a Type II NSTEMI event in the setting of presumed underlying chronic coronary heart disease and supply demand mismatch in setting of physiologic stressors of post op anemia and CVA. Vascular surgery input noted and appreciated. Pt stable from a cardiac perspective for right TCAR as planned on Tuesday given symptomatic high grade R carotid stenosis, with benefits of procedure acceptable despite risks. Veena Nixon DO Cardiology Admission and Anticipated Discharge Date Admission Date: September 26, 2024 Subjective Patient seen in cardiology follow up. Resting comfortably in the supine position without chest pain or orthopnea. Telemetry reveals SR in th 60s. Physical Exam Physical Exam: Temp Pulse Resp BP Pulse Ox O2 Del Method O2 Flow Rate 36.6 C 62 18 173/64 H 95 Room Air 2 09/28/24 07:14 09/28/24 08:00 09/28/24 07:14 09/28/24 07:14 09/28/24 07:14 09/28/24 08:00 09/26/24 15:31 General: no acute distress and stated age Eyes: conjunctiva are pink and non-injected, sclera clear Neck: normal jugular venous pulse, no hepatojugular reflux Chest: normal shape and normal respiratory effort Lungs: clear to auscultation and percussion Cardiac Exam: - regular heart sounds, 1/6 systolic murmur Abdomen: abdomen soft, non-tender, no abnormal masses and no hepatosplenomegaly Musculoskeletal: no gait disturbance, no weakness Extremities: no edema and no cyanosis Neuro:awake, conversant, follows commands, no focal motor deficits, Left eye blindness, partial visual loss of right eye Psych: appropriate affect and insight. Results & Data Vital Signs (Past 12 Hours) Vital Signs Temp Pulse Pulse Resp BP Pulse Ox O2 Del Method 09/28/24 08:00 62 09/28/24 08:00 Room Air 09/28/24 07:14 36.6 C 64 18 173/64 H 95 Room Air 09/28/24 04:12 36.6 C 66 20 178/64 H 96 Room Air 09/28/24 00:01 36.5 C 67 18 148/55 H 96 Room Air 09/28/24 00:00 66 Laboratory Results Intake and Output 09/27/24 09/28/24 09/28/24 22:59 06:59 14:59 Intake Total 300 / 1075 Output Total 0 / 560 Balance 300 / 515 Intake: Oral 300 / 1075 Output: Urine 0 / 250 Other: # Unmeasured Voids 1 Weight 94.4 kg 94.461 kg Weight Measurement Method Standing Scale
[2024-09-28] MEDS: IRON SUCROSE 200 MG in SODIUM CHLORIDE 0.9% 100 ML IV ONE (11:43)
[2024-09-28 11:52] LABS: Basophils # (auto) 0.03 K/uL (0.00-0.20); Basophils % (auto) 0.4 %; Eosinophils # (auto) 0.15 K/uL (0.00-0.50); Eosinophils % (auto) 2.2 %; Hematocrit (blood only) 22.7 % (42.0-52.0); Hemoglobin 7.6 g/dl (14.0-18.0); Immature Granulocytes # (auto) 0.15 K/uL (0.01-0.20); Immature Granulocytes % (auto) 2.2 %; Lymphocytes # (auto) 1.06 K/uL (1.20-3.40); Lymphocytes % (auto) 15.8 %; Mean Corpuscular Hemoglobin 30.5 pg (25.0-34.0); Mean Corpuscular Hgb Conc 33.5 g/dL (32.0-36.0); Mean Corpuscular Volume 91.2 fL (80.0-100.0); Monocytes # (auto) 0.55 K/uL (0.11-0.59); Monocytes % (auto) 8.2 %; Neutrophils # (auto) 4.79 K/uL (1.40-6.50); Neutrophils % (auto) 71.2 %; Nucleated RBC # (auto) 0.02 K/uL (0.00-0.12); Nucleated RBC % (auto) 0.3 %; Platelet Count 193 K/uL (130-400); RDW Coefficient of Variation 13.2 % (11.5-14.5); RDW Standard Deviation 43.1 fL (36.4-46.3); Red Blood Count 2.49 M/uL (4.70-6.10); White Blood Count 6.73 K/ul (4.8-10.8)
[2024-09-28 12:01] LABS: INR 1.4 (0.9-1.1); Prothrombin Time 14.7 Seconds (9.0-12.0)
--- NOTE | 2024-09-28 12:08 | Hospitalist Progress Note ---
Date of Service September 28, 2024 Assessment & Plan (1) Stroke-like symptoms: Plan pt is a 69-year-old male with past medical history significant for end-stage renal disease on peritoneal dialysis, hypertension, hyperlipidemia, history of PE on chronic Coumadin, type 2 diabetes, peripheral vascular disease, CHF who presents with right ocular stroke. Patient was admitted on 08/30/2024 with left eye vision loss, outpatient ophthalmology found to have central artery occlusion and patient was admitted to hospital. Imaging studies showed high-grade stenosis of the bilateral internal and external carotid arteries. 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 Will do stroke protocol with MRI scan, echo Neurochecks Telemetry Neurology consulted, appreciate recs Vascular surgery consulted, appreciate recs 09/26- pt with worsening vision, repeat stat head CT and chest XRAY- no acute change. Holding IV heparin 09/27- to have R TCAR on Tuesday, per Vascular continue brillinta, aspirin and statin 09/28- stable Non-ST elevated [place] HTN Troponin 2486 Denies chest pain EKG has some ST depressions in lateral leads Has shortness on exertion Patient has history of PE on Coumadin INR is 1.8 today Follow echo Hold heparin and warfarin at this time On amlodipine, hydralazine, Imdur and Coreg Cardiac consult for further recommendation Hyperlipidemia On statin and fenofibrate History of PE Holding anticoagulation as above End-stage renal disease On peritoneal dialysis at home Continue home Bumex Nephrology consulted, appreciate further recs Anemia Hemoglobin 7.7 Hemoglobin 8.5 recently Usually seems to be 9-10 range Will check stool for Hemoccult Iron studies, vitamin B12 folate levels Repeat H/H Holding anticoagulation as above 09/27- pt with attempt at blood transfusion yesterday but it was discontinued when he developed chest tightness and SOB. Hgb 8.1 today, improved from 7.2 on last check. Continue to monitor H/H 09/28-hgb down to 7.6, continue to monitor Diabetes Hold glipizide and home Lantus Lantus 5 daily and sliding scale Close monitor BPH On finasteride and Flomax Monitor for urinary retention Depression On Zoloft Diet: HH/Dialysis renal, DM DVT prophylaxis: SCDs, IV heparin on hold. Monitor h and h Dispo: PT/OT for further recs Admission and Anticipated Discharge Date Admission Date: September 26, 2024 Subjective Pt was seen laying in bed Stated that he felt worn out sitting in the chair due for TCAR on Tuesday Review of Systems Review of Systems: All systems reviewed & are unremarkable except as noted in Subjective Physical Exam Physical Exam: General: Alert, oriented. No acute distress HEENT: decreased vision in the both eyes HEENT: NC/AT CV: RRR Resp: Breath sounds decreased bilaterally, no increased effort of breathing Abdomen: Soft, nontender Extremities: No edema in lower extremities bilaterally. Results & Data Results & Data Vital Signs (Past 12 Hours) Vital Signs Temp Pulse Pulse Resp BP Pulse Ox O2 Del Method 09/28/24 11:44 36.6 C 63 17 156/69 H 94 Room Air 09/28/24 08:15 36.6 C 65 20 09/28/24 08:00 62 09/28/24 08:00 Room Air 09/28/24 07:14 36.6 C 64 18 173/64 H 95 Room Air 09/28/24 04:12 36.6 C 66 20 178/64 H 96 Room Air
[2024-09-28 12:11] LABS: Polychromasia 1+
[2024-09-28] MEDS: EPOETIN ALFA 10,000 UNITS/ML VIAL SQ ONE (12:12)
[2024-09-28 12:14] LABS: BUN Creatinine Ratio 11.7 (10-20); Calcium 8.7 mg/dl (8.6-10.3); Magnesium 1.9 mg/dl (1.7-2.4); Phosphorus 6.2 mg/dl (2.5-4.9); Potassium 3.5 mmol/L (3.5-5.1)
--- NOTE | 2024-09-28 14:39 | Pharmacy Report ---
- Date of Service September 28, 2024 - Pharmacy CVA/TIA Medication Review Medications to Prevent Stroke handout has been added to the patients discharge packet. Antiplatelet(s) * Continue aspirin 81mg PO daily * Continue ticagrelor 90mg PO BID Cholesterol * High intensity statin: continue rosuvastatin 20 mg daily DVT Prophylaxis * see Therapeutic Anticoagulatino section Therapeutic Anticoagulation * No history of Afib/Aflutter noted * Chronically anticoagulated on warfarin, heparin bridge for planned TCAR on Tuesday, heparin bridge on hold due to low hemoglobin and worsening vision last night, continue to hold anticoagulation per cardiology today. Type 2 Diabetes * Patient has T2DM, but per Dr. Chou, a diabetes medication with proven CVD benefit will be deferred to their outpatient provider due to familiarity with risks/benefits of such therapies. "Medications to prevent stroke" handout has already been added to the patient's discharge packet, which instructs the patient to follow up with their outpatient provider to evaluate which diabetes medication with proven CVD benefit is best for them
[2024-09-28] MEDS ORDERED: FENOFIBRATE PO SCH (21:00)
[2024-09-29 05:55] LABS: Basophils # (auto) 0.04 K/uL (0.00-0.20); Basophils % (auto) 0.5 %; Eosinophils # (auto) 0.16 K/uL (0.00-0.50); Hematocrit (blood only) 24.7 % (42.0-52.0); Hemoglobin 8.1 g/dl (14.0-18.0); Immature Granulocytes # (auto) 0.18 K/uL (0.01-0.20); Immature Granulocytes % (auto) 2.3 %; Lymphocytes # (auto) 1.04 K/uL (1.20-3.40); Lymphocytes % (auto) 13.3 %; Mean Corpuscular Hemoglobin 29.9 pg (25.0-34.0); Mean Corpuscular Hgb Conc 32.8 g/dL (32.0-36.0); Mean Corpuscular Volume 91.1 fL (80.0-100.0); Mean Platelet Volume 9.7 fL (9.4-12.4); Monocytes # (auto) 0.64 K/uL (0.11-0.59); Monocytes % (auto) 8.2 %; Neutrophils # (auto) 5.78 K/uL (1.40-6.50); Neutrophils % (auto) 73.7 %; Platelet Count 209 K/uL (130-400); RDW Coefficient of Variation 13.1 % (11.5-14.5); RDW Standard Deviation 42.9 fL (36.4-46.3); Red Blood Count 2.71 M/uL (4.70-6.10); White Blood Count 7.84 K/ul (4.8-10.8)
[2024-09-29 06:18] LABS: INR 1.3 (0.9-1.1); Prothrombin Time 13.6 Seconds (9.0-12.0)
[2024-09-29 06:37] LABS: Albumin Globulin Ratio 1.1 (0.9-2); Albumin Level 3.3 gm/dl (3.4-5.0); BUN Creatinine Ratio 11.7 (10-20); Bilirubin,Total 0.4 mg/dl (0.2-1.0); Calcium 8.8 mg/dl (8.6-10.3); Creatinine Clr Calc Pharmacy 10.1 ml/min; Phosphorus 6.4 mg/dl (2.5-4.9); Potassium 4.1 mmol/L (3.5-5.1); Total Protein 6.3 gm/dl (6.0-8.3)
--- NOTE | 2024-09-29 11:33 | Nephrology Progress Note ---
Date of Service September 29, 2024 Assessment & Plan (1) End stage renal disease: (2) Complex renal cyst: (3) NSTEMI (non-ST elevated myocardial infarction): (4) Vision loss of right eye: (5) Stroke-like symptoms: (6) Acute blood loss as cause of postoperative anemia: (7) Peritoneal dialysis catheter in place: (8) Central artery occlusion of retina: Plan 69-year-old gentleman with past medical history significant for end-stage kidney disease on peritoneal dialysis since May 2024, diabetes, peripheral vascular disease, prior history of GBS admitted to the hospital on 09/26/2023 with strokelike symptoms and found to have right-sided vision loss with carotid occlusion. He recently had left-sided vision loss with occlusion of central retinal artery. Workup at that time showed bilateral significant carotid artery stenosis and he had left-sided TCAR on 09/19/2024. He saw his bonding molder on 09/25/2024 when he was found to have right-sided vision loss and right retinal artery occlusion and he was sent to ER for admission and further evaluation. He was also noted to have non-STEMI with elevated troponin, seen by cardiology but thought to be high risk for any intervention at this time and continued on medical management. Hemoglobin was noted to be low at 7.3 after some blood loss and hematoma post TCAR on 09/19/24. Hemoglobin improved after blood transfusion. Plan at this time is to have right sided TCAR early next week. Has been getting peritoneal dialysis as per his out patient's schedule, has been tolerating well and having decent ultrafiltration. Blood pressure has been fair. Volume status acceptable. Electrolyte acceptable. Hemoglobin slightly improved, received Epogen 10,000 units on 09/28/2024. --Continue on CCPD, 4 exchanges, 2 L fill volume, 2.5% Delflex, Fill 10 minutes/dwell 90 minutes/drain 20 minutes, EDW 95 kg -- Dose medications for eGFR less than 10 -- Continue Bumex 4 mg twice a day -- Renvela 800 mg 3 times a day with meals Admission and Anticipated Discharge Date Admission Date: September 26, 2024 Subjective Gene was seen and evaluated this morning. He reports generally feeling well although yesterday had an episode when he had some diarrhea and overall felt poorly but slept through the night and feeling better now. Had peritoneal dialysis last night uneventful, had 500 mL UF. Blood pressure fair, electrolyte acceptable. Review of Systems Review of Systems: All systems reviewed & are unremarkable except as noted in Subjective Physical Exam Constitutional: WD/WN, vitals as above no acute distress Eyes: + anicteric sclerae Neck: normal visual inspection Respiratory: Auscultation: lungs clear to auscultation bilaterally Cardiovascular: Rate/Rhythm: regular rate and regular rhythm Heart Sounds: normal S1 and normal S2 Extremities: no edema Skin: no rashes, warm and dry Neurologic: no focal motor deficits Psychiatric: Orientation: alert and oriented x 3 Results & Data Vital Signs (Past 12 Hours) Vital Signs Temp Pulse Pulse Resp BP Pulse Ox O2 Del Method 09/29/24 08:00 36.4 C L 75 18 09/29/24 08:00 71 09/29/24 08:00 Room Air 09/29/24 07:54 36.4 C L 75 18 152/74 H 96 Room Air 09/29/24 03:43 36.6 C 66 17 143/65 H 93 Room Air 09/29/24 00:00 77 09/28/24 23:39 36.6 C 78 16 177/63 H 94 Room Air PG Care Time/CCT Total # of Minutes Spent Total Time Spent with Patient: Total time spent is greater than 50% in coordination of care (as documented) at patient's floor/unit and/or counseling patient: Coding Level of Care Code 67979 SUB INP/OBS CARE 2/35MIN Diagnoses End stage renal disease N18.6 Complex renal cyst N28.1 NSTEMI (non-ST elevated myocardial infarction) I21.4 Vision loss of right eye H54.61 Stroke-like symptoms R29.90 Acute blood loss as cause of postoperative anemia D62 Peritoneal dialysis catheter in place Z99.2 Central artery occlusion of retina H34.10
--- NOTE | 2024-09-29 15:29 | Hospitalist Progress Note ---
Date of Service September 29, 2024 Assessment & Plan (1) Stroke-like symptoms: Plan pt is a 69-year-old male with past medical history significant for end-stage renal disease on peritoneal dialysis, hypertension, hyperlipidemia, history of PE on chronic Coumadin, type 2 diabetes, peripheral vascular disease, CHF who presents with right ocular stroke. Patient was admitted on 08/30/2024 with left eye vision loss, outpatient ophthalmology found to have central artery occlusion and patient was admitted to hospital. Imaging studies showed high-grade stenosis of the bilateral internal and external carotid arteries. 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 Will do stroke protocol with MRI scan, echo Neurochecks Telemetry Neurology consulted, appreciate recs Vascular surgery consulted, appreciate recs 09/26- pt with worsening vision, repeat stat head CT and chest XRAY- no acute change. Holding IV heparin 09/27- to have R TCAR on Tuesday, per Vascular continue brillinta, aspirin and statin 09/28- stable 09/29- stable Non-ST elevated [place] HTN Troponin 2486 Denies chest pain EKG has some ST depressions in lateral leads Has shortness on exertion Patient has history of PE on Coumadin INR is 1.8 today Follow echo Hold heparin and warfarin at this time On amlodipine, hydralazine, Imdur and Coreg Cardiac consult for further recommendation Hyperlipidemia On statin and fenofibrate History of PE Holding anticoagulation as above End-stage renal disease On peritoneal dialysis at home Continue home Bumex Nephrology consulted, appreciate further recs Anemia Hemoglobin 7.7 Hemoglobin 8.5 recently Usually seems to be 9-10 range Will check stool for Hemoccult Iron studies, vitamin B12 folate levels Repeat H/H Holding anticoagulation as above 09/27- pt with attempt at blood transfusion yesterday but it was discontinued when he developed chest tightness and SOB. Hgb 8.1 today, improved from 7.2 on last check. Continue to monitor H/H 09/28-hgb down to 7.6, continue to monitor 09/29- hgb back up to 8.1 Diabetes Hold glipizide and home Lantus Lantus 5 daily and sliding scale Close monitor BPH On finasteride and Flomax Monitor for urinary retention Depression On Zoloft Diet: HH/Dialysis renal, DM DVT prophylaxis: SCDs, IV heparin on hold. Monitor h and h Dispo: PT/OT for further recs Admission and Anticipated Discharge Date Admission Date: September 26, 2024 Subjective pt was seen in the AM Sitting up at the side of his bed, about to have a bath States vision unchanged Awaiting procedure on tuesday with vascular Review of Systems Review of Systems: All systems reviewed & are unremarkable except as noted in Subjective Physical Exam Physical Exam: General: Alert, oriented. No acute distress HEENT: decreased vision in the both eyes HEENT: NC/AT CV: RRR Resp: Breath sounds decreased bilaterally, no increased effort of breathing Abdomen: Soft, nontender Extremities: No edema in lower extremities bilaterally. Results & Data Results & Data Vital Signs (Past 12 Hours) Vital Signs Temp Pulse Pulse Resp BP Pulse Ox O2 Del Method 09/29/24 15:18 65 09/29/24 11:35 36.5 C 63 18 125/73 96 Room Air 09/29/24 08:00 36.4 C L 75 18 09/29/24 08:00 71 09/29/24 08:00 Room Air 09/29/24 07:54 36.4 C L 75 18 152/74 H 96 Room Air 09/29/24 03:43 36.6 C 66 17 143/65 H 93 Room Air
[2024-09-29] MEDS: INSULIN ASPART PER UNIT CHARGE SC SCH (21:13)
[2024-09-29] MEDS: LANTUS PER UNIT CHARGE SQ SCH (21:13)
[2024-09-29] MEDS: FAMOTIDINE 20MG IV PUSH 20 MG/5 ML SYR IV STA (23:35)
[2024-09-29] MEDS: NITROGLYCERIN SL 0.4 MG/TAB TAB SL STA (23:35)
--- NOTE | 2024-09-29 23:43 | Communication Note ---
Date of Service: September 29, 2024
[2024-09-30 00:26] LABS: Partial Thromboplastin Ratio 1.2; Partial Thromboplastin Time 31 Seconds (21-31)
--- NOTE | 2024-09-30 03:24 | XRay Report ---
Exam(s): XR CXR 1 VIEW EXAM: XR Chest, 1 View CLINICAL HISTORY: Reason for exam: sob. TECHNIQUE: Frontal view of the chest. COMPARISON: Prior chest x-ray from September 26, 2024. FINDINGS: Lungs: Moderate to heavy peribronchial thickening of the central bronchi. No consolidation. Pleural space: Unremarkable. No pneumothorax. Heart: Unremarkable. No cardiomegaly. Mediastinum: Unremarkable. Normal mediastinal contour. Bones/joints: Unremarkable. No acute fracture. IMPRESSION: Bronchitis, which may be of infectious or inflammatory etiologies. No consolidation or pleural effusion. Electronically signed by: Helena Martinez MD 09/30/24 03:22 AM
[2024-09-30 03:26] LABS: Basophils # (auto) 0.06 K/uL (0.00-0.20); Basophils % (auto) 0.8 %; Eosinophils # (auto) 0.17 K/uL (0.00-0.50); Eosinophils % (auto) 2.2 %; Hematocrit (blood only) 24.3 % (42.0-52.0); Hemoglobin 8.1 g/dl (14.0-18.0); Immature Granulocytes % (auto) 2.6 %; Lymphocytes # (auto) 1.19 K/uL (1.20-3.40); Lymphocytes % (auto) 15.6 %; Mean Corpuscular Hemoglobin 30.5 pg (25.0-34.0); Mean Corpuscular Hgb Conc 33.3 g/dL (32.0-36.0); Mean Corpuscular Volume 91.4 fL (80.0-100.0); Mean Platelet Volume 9.9 fL (9.4-12.4); Monocytes # (auto) 0.62 K/uL (0.11-0.59); Monocytes % (auto) 8.1 %; Neutrophils # (auto) 5.38 K/uL (1.40-6.50); Neutrophils % (auto) 70.7 %; Nucleated RBC # (auto) 0.02 K/uL (0.00-0.12); Nucleated RBC % (auto) 0.3 %; Platelet Count 203 K/uL (130-400); RDW Coefficient of Variation 13.2 % (11.5-14.5); RDW Standard Deviation 42.9 fL (36.4-46.3); Red Blood Count 2.66 M/uL (4.70-6.10); White Blood Count 7.62 K/ul (4.8-10.8)
[2024-09-30 03:42] LABS: Albumin Globulin Ratio 1.2 (0.9-2); Albumin Level 3.4 gm/dl (3.4-5.0); BUN Creatinine Ratio 13.1 (10-20); Bilirubin,Total 0.4 mg/dl (0.2-1.0); Calcium 8.8 mg/dl (8.6-10.3); Globulin 2.9 gm/dl (2.5-4.0); Phosphorus 6.3 mg/dl (2.5-4.9); Potassium 3.5 mmol/L (3.5-5.1); Total Protein 6.3 gm/dl (6.0-8.3)
[2024-09-30 03:46] LABS: INR 1.2 (0.9-1.1); Partial Thromboplastin Ratio 1.2; Partial Thromboplastin Time 31 Seconds (21-31); Prothrombin Time 12.6 Seconds (9.0-12.0)
[2024-09-30 04:35] LABS: Troponin I High Sensitivity 777.2 pg/ml (0-20)
[2024-09-30] MEDS: carvediloL 25 MG TAB PO ONE (04:47)
--- NOTE | 2024-09-30 07:14 | Electrocardiogram Report ---
Test Reason : Blood Pressure : */* mmHG Vent. Rate : 72 BPM Atrial Rate : 72 BPM P-R Int : 188 ms QRS Dur : 138 ms QT Int : 452 ms P-R-T Axes : 24 41 153 degrees QTcB Int : 494 ms Normal sinus rhythm Left ventricular hypertrophy with QRS widening and repolarization abnormality Abnormal ECG When compared with ECG of 26-Sep-2024 14:31, T wave inversion no longer evident in Anterior leads Confirmed by Edgar Davey [id number] on 09/30/2024 7:14:01 AM Referred By: REFERRED SELF Confirmed By: Edgar Davey
--- NOTE | 2024-09-30 11:33 | Nephrology Progress Note ---
Date of Service September 30, 2024 Assessment & Plan (1) End stage renal disease: (2) Complex renal cyst: (3) NSTEMI (non-ST elevated myocardial infarction): (4) Vision loss of right eye: (5) Stroke-like symptoms: (6) Acute blood loss as cause of postoperative anemia: (7) Peritoneal dialysis catheter in place: (8) Central artery occlusion of retina: Plan 69-year-old gentleman with past medical history significant for end-stage kidney disease on peritoneal dialysis since May 2024, diabetes, peripheral vascular disease, prior history of GBS admitted to the hospital on 09/26/2023 with strokelike symptoms and found to have right-sided vision loss with carotid occlusion. He recently had left-sided vision loss with occlusion of central retinal artery. Workup at that time showed bilateral significant carotid artery stenosis and he had left-sided TCAR on 09/19/2024. He saw his ear nose throat physician on 09/25/2024 when he was found to have right-sided vision loss and right retinal artery occlusion and he was sent to ER for admission and further evaluation. He was also noted to have non-STEMI with elevated troponin, seen by cardiology but thought to be high risk for any intervention at this time and continued on medical management. Hemoglobin was noted to be low at 7.3 after some blood loss and hematoma post TCAR on 09/19/24. Hemoglobin improved after blood transfusion. Plan at this time is to have right sided TCAR on 10/01/24. Has been getting peritoneal dialysis as per his out patient's schedule, has been tolerating well and having decent ultrafiltration. Blood pressure has been fair. Volume status acceptable. Electrolyte acceptable. Hemoglobin slightly improved, received Epogen 10,000 units on 09/28/2024. --will hold PD tonight considering OR early tomorrow morning, advised to limit fluid intake, will resume CCPD starting tomorrow night, 4 exchanges, 2 L fill volume, 2.5% Delflex, Fill 10 minutes/dwell 90 minutes/drain 20 minutes, EDW 95 kg -- Dose medications for eGFR less than 10 -- Continue Bumex 4 mg twice a day -- Renvela 800 mg 3 times a day with meals Admission and Anticipated Discharge Date Admission Date: September 26, 2024 Subjective Gene was seen and evaluated this morning. He reports generally feeling well. Had peritoneal dialysis last night uneventful, had >900 mL UF. Blood pressure fair, electrolyte acceptable. Review of Systems Review of Systems: All systems reviewed & are unremarkable except as noted in Subjective Physical Exam Constitutional: WD/WN, vitals as above no acute distress Eyes: + anicteric sclerae Neck: left sided TCAR incision, healing well Respiratory: Auscultation: lungs clear to auscultation bilaterally Cardiovascular: Rate/Rhythm: regular rate and regular rhythm Heart Sounds: normal S1 and normal S2 Extremities: + AV fistula (left BC AVF with thrill and bruit); no edema Skin: no rashes, warm and dry Neurologic: no focal motor deficits Psychiatric: Orientation: alert and oriented x 3 Results & Data Vital Signs (Past 12 Hours) Vital Signs Temp Pulse Pulse Resp BP Pulse Ox O2 Del Method 09/30/24 09:10 64 155/67 H 99 Room Air 09/30/24 08:25 36.4 C L 64 18 09/30/24 08:00 68 09/30/24 08:00 Nasal Cannula 09/30/24 04:00 36.4 C L 70 17 173/73 H 98 Nasal Cannula 09/29/24 23:46 76 O2 Flow Rate 09/30/24 09:10 09/30/24 08:25 09/30/24 08:00 09/30/24 08:00 2 09/30/24 04:00 2 09/29/24 23:46 PG Care Time/CCT Total # of Minutes Spent Total Time Spent with Patient: Total time spent is greater than 50% in coordination of care (as documented) at patient's floor/unit and/or counseling patient: Coding Level of Care Code 46102 SUB INP/OBS CARE 2/35MIN Diagnoses End stage renal disease N18.6 Complex renal cyst N28.1 NSTEMI (non-ST elevated myocardial infarction) I21.4 Vision loss of right eye H54.61 Stroke-like symptoms R29.90 Acute blood loss as cause of postoperative anemia D62 Peritoneal dialysis catheter in place Z99.2 Central artery occlusion of retina H34.10
--- NOTE | 2024-09-30 11:37 | Hospitalist Progress Note ---
Date of Service September 30, 2024 Assessment & Plan (1) Stroke-like symptoms: Plan pt is a 69-year-old male with past medical history significant for end-stage renal disease on peritoneal dialysis, hypertension, hyperlipidemia, history of PE on chronic Coumadin, type 2 diabetes, peripheral vascular disease, CHF who presents with right ocular stroke. Patient was admitted on 08/30/2024 with left eye vision loss, outpatient ophthalmology found to have central artery occlusion and patient was admitted to hospital. Imaging studies showed high-grade stenosis of the bilateral internal and external carotid arteries. 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 Will do stroke protocol with MRI scan, echo Neurochecks Telemetry Neurology consulted, appreciate recs Vascular surgery consulted, appreciate recs 09/26- pt with worsening vision, repeat stat head CT and chest XRAY- no acute change. Holding IV heparin 09/27- to have R TCAR on Tuesday, per Vascular continue brillinta, aspirin and statin 09/28- stable 09/29- stable 09/30- TCAR with vascular in the AM, NPO after midnight Non-ST elevated [place] HTN Troponin 2486 Denies chest pain EKG has some ST depressions in lateral leads Has shortness on exertion Patient has history of PE on Coumadin INR is 1.8 today Follow echo Hold heparin and warfarin at this time On amlodipine, hydralazine, Imdur and Coreg Cardiology consult for further recommendation 09/30- episode of chest pain overnight relived by nitro, appreciate further car diology recs Complicated bronchitis vs. Possible Pneumonia Chest XRAY from 09/30 noting infection Started on Augmentin BID Hyperlipidemia On statin and fenofibrate History of PE Holding anticoagulation as above End-stage renal disease On peritoneal dialysis at home Continue home Bumex Nephrology consulted, appreciate further recs Anemia Hemoglobin 7.7 Hemoglobin 8.5 recently Usually seems to be 9-10 range Will check stool for Hemoccult Iron studies, vitamin B12 folate levels Repeat H/H Holding anticoagulation as above 09/27- pt with attempt at blood transfusion yesterday but it was discontinued when he developed chest tightness and SOB. Hgb 8.1 today, improved from 7.2 on last check. Continue to monitor H/H 09/28-hgb down to 7.6, continue to monitor 09/29- hgb back up to 8.1 Diabetes Hold glipizide and home Lantus Lantus 5 daily and sliding scale Close monitor BPH On finasteride and Flomax Monitor for urinary retention Depression On Zoloft Diet: HH/Dialysis renal, DM DVT prophylaxis: SCDs, IV heparin on hold. Monitor h and h Dispo: PT/OT for further recs Admission and Anticipated Discharge Date Admission Date: September 26, 2024 Subjective Pt was seen laying in bed sound asleep Reportedly an eventful night with chest pain relieved by nitroglycerin Chest XRAY with concern for infection, started on Augmentin Due for surgery in the AM Review of Systems Review of Systems: All systems reviewed & are unremarkable except as noted in Subjective Physical Exam Physical Exam: General: Alert, oriented. No acute distress HEENT: decreased vision in the both eyes HEENT: NC/AT CV: RRR Resp: Breath sounds decreased bilaterally, no increased effort of breathing Abdomen: Soft, nontender Extremities: No edema in lower extremities bilaterally. Results & Data Results & Data Vital Signs (Past 12 Hours) Vital Signs Temp Pulse Pulse Resp BP Pulse Ox O2 Del Method 09/30/24 09:10 64 155/67 H 99 Room Air 09/30/24 08:25 36.4 C L 64 18 09/30/24 08:00 68 09/30/24 08:00 Nasal Cannula 09/30/24 04:00 36.4 C L 70 17 173/73 H 98 Nasal Cannula 09/29/24 23:46 76 O2 Flow Rate 09/30/24 09:10 09/30/24 08:25 09/30/24 08:00 09/30/24 08:00 2 09/30/24 04:00 2 09/29/24 23:46
[2024-09-30] MEDS: AMOXICILLIN/CLAVULANATE 500 MG TAB PO SCH (17:09)
[2024-09-30] MEDS: carvediloL 25 MG TAB PO SCH (21:07)
[2024-09-30] MEDS: PROMETHAZINE 6.25 MG/50.25 ML BAG IV STA (23:53)
[2024-10-01 06:04] LABS: Basophils # (auto) 0.05 K/uL (0.00-0.20); Basophils % (auto) 0.6 %; Eosinophils # (auto) 0.16 K/uL (0.00-0.50); Eosinophils % (auto) 1.9 %; Hematocrit (blood only) 24.9 % (42.0-52.0); Hemoglobin 8.3 g/dl (14.0-18.0); Immature Granulocytes # (auto) 0.15 K/uL (0.01-0.20); Immature Granulocytes % (auto) 1.8 %; Lymphocytes # (auto) 1.32 K/uL (1.20-3.40); Lymphocytes % (auto) 15.6 %; Mean Corpuscular Hemoglobin 30.6 pg (25.0-34.0); Mean Corpuscular Hgb Conc 33.3 g/dL (32.0-36.0); Mean Corpuscular Volume 91.9 fL (80.0-100.0); Mean Platelet Volume 9.5 fL (9.4-12.4); Monocytes % (auto) 7.1 %; Platelet Count 202 K/uL (130-400); RDW Coefficient of Variation 13.2 % (11.5-14.5); RDW Standard Deviation 43.1 fL (36.4-46.3); Red Blood Count 2.71 M/uL (4.70-6.10); White Blood Count 8.48 K/ul (4.8-10.8)
[2024-10-01 06:24] LABS: Albumin Globulin Ratio 1.1 (0.9-2); Albumin Level 3.1 gm/dl (3.4-5.0); BUN Creatinine Ratio 11.8 (10-20); Bilirubin,Total 0.4 mg/dl (0.2-1.0); Calcium 8.6 mg/dl (8.6-10.3); Creatinine Clr Calc Pharmacy 9.8 ml/min; Globulin 2.8 gm/dl (2.5-4.0); Phosphorus 6.9 mg/dl (2.5-4.9); Total Protein 5.9 gm/dl (6.0-8.3)
[2024-10-01 06:32] LABS: INR 1.1 (0.9-1.1); Prothrombin Time 12.3 Seconds (9.0-12.0)
--- NOTE | 2024-10-01 06:49 | Anesthesiology Consultation ---
Date of Service October 01, 2024 Assessment & Plan Chart Review Chart Review: Acceptable Risk for Surgery and Patient NOT seen in Pre Admission Testing Consults Requested none ASA ASA4 Proposed Anesthesia Anesthesia Type: General Anesthesia Line Insertion: Arterial line History Surgery Operation Date: 10/01/24 08:00 Proposed Procedures p Right Transcarotid Artery Revascularization - Herb Scott MD Height/Weight Height: 5 ft 8 in Weight: 94.2 kg Allergies Allergy/AdvReac Type Severity Reaction Status Date / Time atorvastatin AdvReac Intermediate Muscle Verified 09/25/24 22:07 aches bupropion [From Wellbutrin] AdvReac Intermediate Vivid Verified 09/25/24 22:07 dreams, hallucinations [id number] Reductase AdvReac Intermediate Body aches Verified 09/25/24 22:07 Inhibitor [Cdmjnqm-Ask-Vgg Reductase Inhibitor] Medications Home Medications Medication Instructions Recorded Confirmed Last Taken gabapentin 100 mg capsule 100 mg PO TID 03/26/20 09/25/24 09/25/24 12:00 sertraline 100 mg tablet 100 mg PO PM 05/22/21 09/25/24 09/24/24 fenofibrate micronized 43 mg 43 mg PO PM 08/06/22 09/25/24 09/24/24 capsule rosuvastatin 20 mg tablet 20 mg PO QAM 11/25/22 09/25/24 09/25/24 carvedilol 25 mg tablet (Coreg) 25 mg PO BID 12/31/22 09/25/24 09/25/24 08:00 sertraline 50 mg tablet 50 mg PO PM 09/22/23 09/25/24 09/24/24 warfarin 3 mg tablet 1.5 - 3 mg PO UD 09/22/23 09/25/24 09/25/24 hydralazine 100 mg tablet 100 mg PO TID #270 tabs 11/17/23 09/25/24 09/25/24 12:00 glipizide 5 mg tablet 10 mg PO QAM 01/06/24 09/25/24 09/25/24 aspirin 81 mg tablet,delayed 81 mg PO PM 02/24/24 09/25/24 09/24/24 release isosorbide mononitrate 60 mg 60 mg PO QAM 02/24/24 09/25/24 09/25/24 tablet,extended release 24 hr amlodipine 5 mg tablet (Norvasc) 5 mg PO BID #180 tabs 03/16/24 09/25/24 09/25/24 08:00 polyethylene glycol 3350 17 17 g PO Q OTHER DAY 04/23/24 09/25/24 09/24/24 gram/dose oral powder (Miralax) sevelamer HCl 800 mg tablet 800 mg PO TID 04/23/24 09/25/24 09/25/24 12:00 finasteride 5 mg tablet 5 mg PO QAM #90 tabs 07/11/24 09/25/24 09/25/24 bumetanide 2 mg tablet 4 mg PO BID 09/06/24 09/25/24 09/25/24 08:00 epoetin brenda-epbx 40,000 unit/mL 40,000 unit subcut MONTHLY 09/06/24 09/25/24 09/11/24 injection solution (Retacrit) insulin aspart U-100 100 unit/mL 3 unit subcut BID 09/06/24 09/25/24 09/25/24 08:00 (3 mL) subcutaneous pen (Novolog FlexPen U-100 Insulin aspart) insulin glargine 100 unit/mL (3 12 unit subcut HS 09/06/24 09/25/24 09/24/24 mL) subcutaneous pen (Lantus Solostar U-100 Insulin) sodium bicarbonate 650 mg tablet 650 mg PO BID 09/06/24 09/25/24 09/25/24 08:00 tamsulosin 0.4 mg capsule 0.4 mg PO QAM 09/12/24 09/25/24 09/25/24 ticagrelor 90 mg tablet (Brilinta) 90 mg PO BID #60 tabs 09/18/24 09/25/24 09/25/24 08:00 Active Medications Generic Name Dose Route Start Last Admin Trade Name Freq PRN Reason Stop Dose Admin Amlodipine Besylate 5 mg 09/26/24 09:00 09/30/24 21:07 Amlodipine Besylate 5 Mg Tab PO 10/26/24 08:59 5 mg BID JAKOB Administration Amoxicillin/Clavulanate Potassium 1 tab 09/30/24 17:00 09/30/24 17:09 Amoxicillin/Clavulanate 500 Mg Tab PO 10/05/24 16:59 1 tab BIDM JAKOB Administration Protocol Aspirin 81 mg 09/26/24 21:00 09/30/24 21:07 Aspirin 81 Mg Ectab PO 10/26/24 20:59 81 mg PM JAKOB Administration Bumetanide 4 mg 09/26/24 09:00 09/30/24 17:09 Bumetanide 1 Mg Tab PO 10/26/24 08:59 4 mg BID17 JAKOB Administration Carvedilol 25 mg 09/30/24 21:00 09/30/24 21:07 Carvedilol 25 Mg Tab PO 10/30/24 20:59 25 mg BID JAKOB Administration Fenofibrate 1 each 09/27/24 21:00 09/30/24 21:07 Fenofibrate Patient's Own PO 10/27/24 20:59 1 each PM JAKOB Administration Finasteride 5 mg 09/26/24 09:00 09/30/24 08:08 Finasteride 5 Mg Tab PO 10/26/24 08:59 5 mg QAM JAKOB Administration Gabapentin 100 mg 09/26/24 09:00 09/30/24 21:07 Gabapentin 100 Mg Cap PO 10/26/24 08:59 100 mg TID JAKOB Administration Gentamicin Sulfate 1 appln 09/27/24 16:00 09/30/24 08:08 Gentamicin Sulfate 0.1% Cr 15 Gm Tube EXT 10/07/24 15:59 1 appln DAILY JAKOB Administration Hydralazine HCl 100 mg 09/26/24 09:00 09/30/24 21:07 Hydralazine Tab 50 Mg Tab PO 10/26/24 08:59 100 mg TID JAKOB Administration Insulin Aspart 0 units 09/29/24 21:00 09/30/24 21:08 Insulin Aspart Per Unit Charge SC 10/29/24 20:59 2 units ACHS JAKOB Administration Insulin Glargine 5 units 09/29/24 21:00 09/30/24 21:08 Lantus Per Unit Charge SQ 10/29/24 20:59 5 units BID JAKOB Administration Isosorbide Mononitrate 60 mg 09/26/24 09:00 09/30/24 08:07 Isosorbide [place] Extended Rel 60 Mg Tabcr PO 10/26/24 08:59 60 mg QAM JAKOB Administration Polyethylene Glycol 17 gm 09/26/24 02:59 09/28/24 08:54 Polyethylene (Miralax) 17 Gm Pack PO 10/26/24 02:58 17 gm DAILY PRN Administration Constipation Polyethylene Glycol 17 gm 09/26/24 09:00 09/30/24 08:06 Polyethylene (Miralax) 17 Gm Pack PO 10/26/24 08:59 Not Given Q48H JAKOB Rosuvastatin Calcium 20 mg 09/26/24 09:00 09/30/24 08:08 Rosuvastatin Calcium 20 Mg Tab PO 10/26/24 08:59 20 mg QAM JAKOB Administration Sertraline HCl 100 mg 09/26/24 21:00 09/30/24 21:06 Sertraline Hcl 100 Mg Tablet PO 10/26/24 20:59 100 mg PM JAKOB Administration Sertraline HCl 50 mg 09/26/24 21:00 09/30/24 21:06 Sertraline Hcl 50 Mg Tablet PO 10/26/24 20:59 50 mg PM JAKBO Administration Sevelamer Carbonate 800 mg 09/26/24 08:00 09/30/24 17:09 Sevelamer Carbonate 800 Mg Tab PO 10/26/24 07:59 800 mg TIDM JAKOB Administration Tamsulosin HCl 0.4 mg 09/26/24 09:00 09/30/24 08:08 Tamsulosin Hcl 0.4 Mg Cap PO 10/26/24 08:59 0.4 mg QAM JAKOB Administration Ticagrelor 90 mg 09/26/24 09:00 09/30/24 21:06 Ticagrelor 90 Mg Tab PO 10/26/24 08:59 90 mg BID JAKOB Administration Past Medical History Medical History Peritoneal dialysis catheter in situ PD every day [id number]- follows with neph dr. 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 > 50% stenosis external carotid arteries bilaterally admit to [facility]/ stroke like symptoms- d/c 09/09/24 Limb alert care status left arm Presence of arteriovenous fistula for hemodialysis Left Wrist Arteriovenous Fistula Creation BPH (benign prostatic hyperplasia) Foot drop, right Hx of cardiac arrhythmia reason pt had heart cath several yrs ago, unsure exactly what it was, controlled now per pt CHF (congestive heart failure) no longer follows with Dr. 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, a few cousins have it as well, but pt unsure of the name of the disorder Edema RLE (chronic issue x years after nerve procedure) Exercise / Class Metabolic Activity III < 4 Walking/Shop/Light housework Past Family History Family History Brother Cancer Father Hypertension Diabetes Heart disease Dementia Mother Diabetes Past Surgical History Surgical History History of surgery (04/24/24) Continuous Ambulatory Peritoneal Dialysis Catheter 03/15/24 and 04/24/24 History of esophagogastroduodenoscopy (EGD) Hx of foot surgery right, nerve surgery > caused foot drop History of back surgery lumbar Hx of cardiac catheterization Remote hx many yrs ago > no stents - [facility] Follows w/ Dr. Marshall/[place] - no longer sees Hx of colonoscopy Hx of bilateral hip replacements History of tonsillectomy Past Anesthesia History No Hx of Anesthesia Complications and No Family Hx of Anesthesia Complications History of PONV No Hx of PONV and No Hx of Motion Sickness Social History Smoking Status: Never smoker tobacco type: cigarettes Do You Dip or Chew Tobacco: No Hx Alcohol Use: No Hx Substance Use: No substance use type: does not use Physical Exam Vital Signs Last Vital Signs Temp 36.6 C 10/01/24 04:47 Pulse 76 10/01/24 04:47 Resp 18 10/01/24 04:47 BP 170/75 H 10/01/24 04:47 Pulse Ox 97 10/01/24 04:47 O2 Del Method Nasal Cannula 10/01/24 04:47 O2 Flow Rate 3 10/01/24 04:47 Testing Laboratory Results 10/01/24 05:47 10/01/24 05:47 PT 12.3 Seconds (9.0-12.0) H 04/21/25 05:47 INR 1.1 (0.9-1.1) 10/01/24 05:47 APTT 31 Seconds (21-31) 09/30/24 02:59 Hemoglobin A1c 7.7 % (4.5-5.6) H 09/26/24 05:19 Urine RBC (Auto) 0-2 /hpf (0-2) 09/27/24 09:55 Blood Type A Positive 09/25/24 20:59 Antibody Screen NEGATIVE 09/25/24 20:59 09/30/24 20:54 POC Glucose 180 H Electrocardiogram Date: 09/29/24 Findings: + NSR @ (@ 72 w/ QRS widening and repolarization abnlty) and + LVH Chest X-Ray Date: 09/29/24 Findings: + cardiomegaly and + other (bronchitis; no consolidation or pleural effusion) Echocardiogram Date: 09/26/24 EF: 55% LV Function: normal RWMA: + none Other Findings: + LVH (moderate) and + diastolic dysfunction (Grade 1) Valvular Disease: + no significant valvular disease moderate AV sclerosis Moderate MAC Other Testing 09/25/2024-Neck CTA- H/D sig. stenosis of right cervical ICA > 80%
[2024-10-01] MEDS ORDERED: PROMETHAZINE HCL 6.25 MG in SODIUM CHLORIDE 0.9% 50 ML IV PRN (06:57)
[2024-10-01] MEDS ORDERED: ONDANSETRON INJ 2 MG/ML 2 ML VIAL IV PRN (06:57)
[2024-10-01] MEDS ORDERED: FLUMAZENIL 0.1 MG/1 ML 10 ML VIAL IV PRN (06:57)
[2024-10-01] MEDS ORDERED: ePHEDrine sulfate 50 MG/ML AMP IV PRN (06:57)
[2024-10-01] MEDS ORDERED: NALOXONE HCL 0.4 MG/1 ML VIAL/CARP IV PRN (06:57)
[2024-10-01] MEDS ORDERED: ATROPINE SULFATE 0.1 MG/ML 10ML SYR IV PRN (06:57)
[2024-10-01] MEDS ORDERED: fentaNYL citrate PF 100 MCG/2 ML VIAL IV PRN (06:57)
[2024-10-01] MEDS ORDERED: PROPOFOL IV EMULSION 10 MG/ML 20 ML VIAL IV ONE (07:24)
[2024-10-01] MEDS ORDERED: MIDAZOLAM HCL 1 MG/ML 2ML VIAL ONE (07:25)
[2024-10-01] MEDS ORDERED: fentaNYL citrate PF 100 MCG/2 ML VIAL ONE (07:26)
[2024-10-01] MEDS ORDERED: HEPARIN SOD (PORCINE) 1000 UNIT/ML ONE ×2 (07:27→09:50)
[2024-10-01] MEDS ORDERED: CISATRACURIUM BESYLATE IV SOLN 2 MG/ML 10 ML VIAL IV ONE (07:27)
[2024-10-01] MEDS ORDERED: GLYCOPYRROLATE 0.2 MG/ML VIAL ONE ×2 (07:28→09:43)
--- NOTE | 2024-10-01 07:31 | History & Physical Bridge Note ---
Date of Service October 01, 2024 History & Physical Bridge Note Patient for a right tcar today. I have discussed the risks options and benefits of the procedure with the patient. The patient understands the risks options and benefits and agrees to the procedure. I have examined the patient, reviewed the History & Physical and in the interval since the performance of the History & Physical I have noted the following changes of clinical significance: no changes noted
[2024-10-01] MEDS: SODIUM CHLORIDE 0.9% 1,000 ML IV SCH (07:37)
[2024-10-01] MEDS: ceFAZolin 2000MG 2,000 MG/15 ML SYR IV ONE (08:48)
[2024-10-01] MEDS ORDERED: ceFAZolin 330 MG/ML 1 GM VIAL ONE (08:50)
[2024-10-01] MEDS ORDERED: NEOSTIGMINE METHYLSULFATE 1 MG/ML 10ML VIAL ONE (08:51)
[2024-10-01] MEDS ORDERED: VASOPRESSIN 20 UNIT/ML VIAL ONE (09:26)
[2024-10-01] MEDS ORDERED: PHENYLEPHRINE 100MCG/ML 5ML SYR ONE (09:43)
[2024-10-01] MEDS ORDERED: ePHEDrine sulfate 50 MG/5 ML SYR ONE (09:43)
[2024-10-01] MEDS: THROMBIN FOR SOLN 20000 UNIT KIT ONE (09:47)
[2024-10-01] MEDS: GELATIN SPONGE SZ 100 ONE (09:47)
--- NOTE | 2024-10-01 09:47 | Nephrology Progress Note ---
Date of Service October 01, 2024 Assessment & Plan (1) End stage renal disease: (2) Complex renal cyst: (3) NSTEMI (non-ST elevated myocardial infarction): (4) Vision loss of right eye: (5) Stroke-like symptoms: (6) Acute blood loss as cause of postoperative anemia: (7) Peritoneal dialysis catheter in place: (8) Central artery occlusion of retina: Plan 69-year-old gentleman with past medical history significant for end-stage kidney disease on peritoneal dialysis since May 2024, diabetes, peripheral vascular disease, prior history of GBS admitted to the hospital on 09/26/2023 with strokelike symptoms and found to have right-sided vision loss with carotid occlusion. He recently had left-sided vision loss with occlusion of central retinal artery. Workup at that time showed bilateral significant carotid artery stenosis and he had left-sided TCAR on 09/19/2024. He saw his crystal slicer on 09/25/2024 when he was found to have right-sided vision loss and right retinal artery occlusion and he was sent to ER for admission and further evaluation. He was also noted to have non-STEMI with elevated troponin, seen by cardiology but thought to be high risk for any intervention at this time and continued on medical management. Hemoglobin was noted to be low at 7.3 after some blood loss and hematoma post TCAR on 09/19/24. Hemoglobin improved after blood transfusion. Plan at this time is to have right sided TCAR on 10/01/24. Has been getting peritoneal dialysis as per his out patient's schedule, has been tolerating well and having decent ultrafiltration. Blood pressure has been fair. Volume status acceptable. Electrolyte acceptable. --resume CCPD tonight 4 exchanges, 2 L fill volume, 2.5% Delflex, Fill 10 minutes/dwell 90 minutes/drain 20 minutes, EDW 95 kg -- Dose medications for eGFR less than 10 -- Continue Bumex 4 mg twice a day -- Renvela 800 mg 3 times a day with meals Admission and Anticipated Discharge Date Admission Date: September 26, 2024 Subjective Gene was off floor for TCAR this morning. Overall has been otherwise feeling well, there was no overnight event. Did not have dialysis last night considering cardiac wartime this morning. Vital signs stable, electrolyte acceptable. Results & Data Vital Signs (Past 12 Hours) Vital Signs Temp Pulse Pulse Resp BP Pulse Ox O2 Del Method 04/21/25 07:18 36.9 C 67 16 142/63 H 95 Room Air 10/01/24 07:00 72 10/01/24 07:00 Nasal Cannula 10/01/24 06:53 36.9 C 66 16 156/70 H 99 Nasal Cannula 10/01/24 04:47 36.6 C 76 18 170/75 H 97 Nasal Cannula 10/01/24 00:01 36.5 C 79 17 174/66 H 98 Nasal Cannula 09/30/24 22:41 68 O2 Flow Rate 10/01/24 07:18 10/01/24 07:00 10/01/24 07:00 2 10/01/24 06:53 2 10/01/24 04:47 3 10/01/24 00:01 2 09/30/24 22:41 PG Care Time/CCT Total # of Minutes Spent Total Time Spent with Patient: Total time spent is greater than 50% in coordination of care (as documented) at patient's floor/unit and/or counseling patient: Coding Level of Care Code 00618 SUB INP/OBS CARE 07/07MIN Diagnoses End stage renal disease N18.6 Complex renal cyst N28.1 NSTEMI (non-ST elevated myocardial infarction) I21.4 Vision loss of right eye H54.61 Stroke-like symptoms R29.90 Acute blood loss as cause of postoperative anemia D62 Peritoneal dialysis catheter in place Z99.2 Central artery occlusion of retina H34.10
[2024-10-01] MEDS ORDERED: PROTAMINE SULFATE 10 MG/ML 5 ML VIAL IV ONE (09:50)
[2024-10-01] MEDS: VISIPAQUE IV PRN (09:50)
[2024-10-01] MEDS: SURGICEL ABSORB HEMOSTAT 2IN X 14IN TOP ONE (09:50)
[2024-10-01] MEDS: ceFAZolin 330 MG/ML 1 GM VIAL ONE (09:57)
[2024-10-01] MEDS: BUPIVACAINE/EPINEPHRINE 0.5% MPF 1:200,000 30 ML VIAL ONE (09:58)
--- NOTE | 2024-10-01 10:04 | Operative Report ---
Post Operative Report Pre & Post Diagnosis Operation Date: 10/01/24 08:00 Pre-Op Diagnosis: Right Symptomatic Carotid Stenosis Post-Op Diagnosis: Right Symptomatic Carotid Stenosis I identified the patient and participated in the time-out.: Yes Procedure Operation Date: 10/01/24 08:00 Actual Procedures p Right Transcarotid Artery Revascularization(Right) - Herb Scott MD Surgeon Herb Scott MD Ict Customer Support Officer Prashanth Odonnell MD; Abida Munoz PA-C Estimated Blood Loss 30 Findings Consistent with Post-Op Diagnosis Severe stenosis of the right internal carotid artery resolved following stent deployment. No thrombus dissection visualized Specimens None Anesthesia Type General Complications None Disposition Accompanied Patient To Recovery: No Indications Herb Desai is a 69 year old male with symptomatic right internal carotid artery stenosis. After discussion of the procedure, risks and benefits, he elected to proceed with a right TCAR. Description of Procedure The patient was taken to the operating room and placed in supine position. After general anesthesia was accomplished the right-side of the neck and left groin were prepped and draped in a sterile manner. A transverse 4cm incision was made on the right neck over the sternal and clavicular heads of the sternocleidomastoid muscle and below the omohyoid. Subcutaneous tissue and platysma were divided using electrocautery. Dissection using Metzenbaum scissors proceeded and the carotid sheath was identified medially. It was divided longitudinally. The internal jugular was retracted laterally. The common carotid artery was identified with the Vagus nerve posterolateral. The common carotid artery was mobilized with Metzenbaum scissors and umbilical tape was placed around the artery. Once sufficient length, about 2cm of the common carotid were mobilized, a 5-0 Proline suture was used to place a U-Stitch in the anterior surface of the right common carotid artery Attention was turned to the left common femoral vein which was then accessed under ultrasound guidance using a micropuncture needle. This was exchanged for the Venous Return Sheath over the provided 0.035'' wire. Blood was aspirated from the flow line followed by flushing of the venous sheath with heparinized saline. The sheath was sutured in place to the patient's skin. A total of 14988M of heparin was then given to obtain an ACT > 250. A micropuncture needle was used to access the common carotid artery in the center of the U-stitch. The micropuncture wire was then advance 4cm into the common carotid artery and the micropuncture needle was removed. The micropuncture sheath was advanced 2-3cm into the common carotid artery and the wire and dilator were removed. A carotid angiogram was performed. The bifurcation was marked. Next a 0.035'' J guidewire was was inserted and placed just proximal to the right internal carotid artery lesion without engaging the lesion under f luoroscopic guidance. The micropuncture sheath was exchanged over the guidewire and the Transcarotid Arterial Sheath was advanced to the 2.5cm marker in correct coaxial orientation and the J wire and dilator were removed. The Sheath was sutured to the patient and then flushed with heparinized saline. No air bubbles visualized during flushing The flow controller was connected to the Transcarotid arterial sheath. Arterial blood was allowed to passively fill the device completely to which it was then connected to the Venous return sheath. The flow controller was set to high. The common carotid artery proximal to the access point was then clamped with an angled DeBakey and flow reversal was confirmed. A right carotid angiogram was then performed and the right internal carotid artery lesion was marked. HR and systolic blood pressures were adequate with HR of about 80 and blood pressure between 140 and 160 systolic. The lesion was then crossed using a 0.014'' guidewire. The lesion was then pre-dilated using a 6mm x 35mm balloon. This balloon was then exchanged and primary stenting was performed with the Transcarotid stent, appropriately sized (10-8 x 40mm). Completion carotid angiography demonstrated patent stent with <50% residual stenosis Antegrade flow was restored following release of the common carotid artery clamp. The arterial sheath was removed and U-Stitch tied. The femoral venous sheath was removed and pressure held for 5 min with adequate hemostasis. Adequate hemostasis was seen of the carotid artery. The wound was inspected and adequate hemostasis was obtained. It was then closed with a running 3-0 Vicryl suture for the platysmal layer and a 4-0 subcuticular Vicryl suture for the skin edges. Dermabond was used for dressing. Patient awoke from anesthesia without difficulties. Was neurovascularly intact, moving all extremities and following commands at case completion. The patient left the operating room in satisfactory condition and tolerated the procedure well A total of 47mGy, 3.3 min of fluoroscopy time, and 15cc of contrast were used during the procedure. Dr. Scott was present and scrubbed for the entire procedure. I attest to the content of the Intraoperative Record and any orders documented therein. Any exceptions are noted below.
--- NOTE | 2024-10-01 10:04 | Post Operative Brief Note ---
Immediate Post Op Note Date of Surgery October 01, 2024 Pre & Post Diagnosis Operation Date: 10/01/24 08:00 Pre-Op Diagnosis: Right Symptomatic Carotid Stenosis Post-Op Diagnosis: Right Symptomatic Carotid Stenosis I identified the patient and participated in the time-out.: Yes Procedure Operation Date: 10/01/24 08:00 Actual Procedures p Right Transcarotid Artery Revascularization(Right), Ultrasound of left common femoral vein - Herb Scott MD Surgeon Herb Scott MD Diploma Medical Assistant MD Dominic MaynardMinarchick,PAC Estimated Blood Loss 30 Findings Consistent with Post-Op Diagnosis Drains Other (peritoneal catheter remains intact) Anesthesia Type General Complications none Disposition Accompanied Patient To Recovery: No Disposition: Recovery Room
--- NOTE | 2024-10-01 11:39 | Anesthesiology Progress Note ---
Date of Service October 01, 2024 Anesthesia Post Procedure Vital Signs Vital Signs: Temp Pulse Pulse Pulse Resp BP BP 10/01/24 11:30 76 17 144/43 H 10/01/24 11:20 77 18 144/70 H 143/43 H 10/01/24 11:10 36.5 C 78 20 140/69 135/40 L 10/01/24 11:00 79 20 154/63 H 139/42 L 10/01/24 10:50 80 20 139/43 L 10/01/24 10:40 75 20 124/49 L 144/44 H 10/01/24 10:31 36.6 C 73 22 150/31 H 147/44 H 10/01/24 07:18 36.9 C 67 16 142/63 H 10/01/24 07:00 72 10/01/24 07:00 10/01/24 06:53 36.9 C 66 16 156/70 H 10/01/24 04:47 36.6 C 76 18 170/75 H 10/01/24 00:01 36.5 C 79 17 174/66 H 09/30/24 22:41 68 09/30/24 20:26 36.4 C L 68 17 144/63 H 09/30/24 19:00 09/30/24 15:52 36.5 C 67 14 149/68 H 09/30/24 14:43 66 09/30/24 12:00 36.6 C 62 16 135/55 L Pulse Ox O2 Del Method O2 Flow Rate 10/01/24 11:30 96 Nasal Cannula 2 10/01/24 11:20 95 Nasal Cannula 2 10/01/24 11:10 93 Nasal Cannula 2 10/01/24 11:00 92 Oxymask 3 10/01/24 10:50 93 Oxymask 3 10/01/24 10:40 95 Oxymask 6 10/01/24 10:31 98 Oxymask 6 10/01/24 07:18 95 Room Air 10/01/24 07:00 10/01/24 07:00 Nasal Cannula 2 10/01/24 06:53 99 Nasal Cannula 2 10/01/24 04:47 97 Nasal Cannula 3 10/01/24 00:01 98 Nasal Cannula 2 09/30/24 22:41 09/30/24 20:26 98 Room Air 09/30/24 19:00 Nasal Cannula 09/30/24 15:52 96 Room Air 09/30/24 14:43 09/30/24 12:00 94 Room Air Transfer of Care Handoff Completed per policy Notes Mental Status: alert / awake / arousable Patient Amnestic to Procedure: Yes Nausea / Vomiting: adequately controlled Pain: adequately controlled Airway Patency, RR, SpO2: stable & adequate BP & HR: stable & adequate Hydration State: stable & adequate Anesthetic Complications: no major complications apparent
[2024-10-01] MEDS ORDERED: PHARMACY GLYCEMIC MGMT CONSULT PRN (12:48)
[2024-10-01] MEDS ORDERED: STAT IV Infusion **Titration per Protocol STA (12:48)
[2024-10-01] MEDS ORDERED: PHENYLEPHRINE/NSS 25 MG/250 ML BAG IV PRN (12:48)
--- NOTE | 2024-10-01 14:04 | Critical Care Consultation ---
Date of Consultation October 01, 2024 Assessment & Plan (1) Vision loss of right eye: (2) Symptomatic stenosis of right carotid artery: Plan Impression: 69-year-old male status post right TCAR. Doing well clinically. Recommendations: 1. Status post TCAR: Patient is doing well clinically. Continue to follow hematoma clinically. Management and disposition per vascular surgery. Defer anticoagulation and antiplatelet agents to vascular surgery. 2. Anemia: Likely postoperative blood loss. No indication for transfusion currently. Continue to follow. 3. End-stage renal disease. Continue peritoneal dialysis. Patient's other medical issues have been well addressed by his primary admitting service as well as multiple consultants. Will continue to follow in the ICU overnight for any critical care issues. Thanks for the opportunity participate in care of this patient. Feel free to contact us with questions or concerns History of Present Illness Attending Physician: Isabel Chou MD History of Present Illness Asked by vascular surgery to assist in evaluation management this patient status post TCAR on the left. History is obtained from discussion with the vascular surgery service as well as interviewed the patient and review the electronic medical record. Patient is a 69-year-old male who is known to me from admission earlier this month where you underwent TCAR on the left. He was discharged 09/20/2024 and then readmitted 09/26/2024 after noticing some vision changes. He followed up with his eye doctor and was diagnosed with a right ocular stroke. He was admitted to the hospital and had neurology and cardiology consultations as well as vascular surgery consultation. He was felt appropriate for TCAR on the left and underwent that procedure today. He is brought back to the ICU hemodynamically stable. He does have a small area of ecchymoses/swelling/hematoma at his incision site. His voice is intact. He is swallowing. His pain is well-controlled. Allergies Allergy/AdvReac Type Severity Reaction Status Date / Time atorvastatin AdvReac Intermediate Muscle Verified 09/25/24 22:07 aches bupropion [From Wellbutrin] AdvReac Intermediate Vivid Verified 09/25/24 22:07 dreams, hallucinations Rwmrsnu-YLQ-NqS Reductase AdvReac Intermediate Body aches Verified 09/25/24 22:07 Inhibitor [Rgdrlik-Aga-Xgq Reductase Inhibitor] Home Medications Medication Instructions Recorded Confirmed Type gabapentin 100 mg capsule 100 mg PO TID 03/26/20 09/25/24 History sertraline 100 mg tablet 100 mg PO PM 05/22/21 09/25/24 History fenofibrate micronized 43 mg 43 mg PO PM 08/06/22 09/25/24 History capsule rosuvastatin 20 mg tablet 20 mg PO QAM 11/25/22 09/25/24 History carvedilol 25 mg tablet (Coreg) 25 mg PO BID 12/31/22 09/25/24 History sertraline 50 mg tablet 50 mg PO PM 09/22/23 09/25/24 History warfarin 3 mg tablet 1.5 - 3 mg PO UD 09/22/23 09/25/24 History hydralazine 100 mg tablet 100 mg PO TID #270 tabs 11/17/23 09/25/24 Rx glipizide 5 mg tablet 10 mg PO QAM 01/06/24 09/25/24 History aspirin 81 mg tablet,delayed 81 mg PO PM 02/24/24 09/25/24 History release isosorbide mononitrate 60 mg 60 mg PO QAM 02/24/24 09/25/24 History tablet,extended release 24 hr amlodipine 5 mg tablet (Norvasc) 5 mg PO BID #180 tabs 03/16/24 09/25/24 Rx polyethylene glycol 3350 17 17 g PO Q OTHER DAY 04/23/24 09/25/24 History gram/dose oral powder (Miralax) sevelamer HCl 800 mg tablet 800 mg PO TID 04/23/24 09/25/24 History finasteride 5 mg tablet 5 mg PO QAM #90 tabs 07/11/24 09/25/24 Rx bumetanide 2 mg tablet 4 mg PO BID 09/06/24 09/25/24 History epoetin brenda-epbx 40,000 unit/mL 40,000 unit subcut MONTHLY 09/06/24 09/25/24 History injection solution (Retacrit) insulin aspart U-100 100 unit/mL 3 unit subcut BID 09/06/24 09/25/24 History (3 mL) subcutaneous pen (Novolog FlexPen U-100 Insulin aspart) insulin glargine 100 unit/mL (3 12 unit subcut HS 09/06/24 09/25/24 History mL) subcutaneous pen (Lantus Solostar U-100 Insulin) sodium bicarbonate 650 mg tablet 650 mg PO BID 09/06/24 09/25/24 History tamsulosin 0.4 mg capsule 0.4 mg PO QAM 09/12/24 09/25/24 History ticagrelor 90 mg tablet (Brilinta) 90 mg PO BID #60 tabs 09/18/24 09/25/24 Rx Patient History Medical History Peritoneal dialysis catheter in situ PD every day [id number]- follows with neph dr. 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 > 50% stenosis external carotid arteries bilaterally admit to [facility]/ stroke like symptoms- d/c 09/09/24 Limb alert care status left arm Presence of arteriovenous fistula for hemodialysis Left Wrist Arteriovenous Fistula Creation BPH (benign prostatic hyperplasia) Foot drop, right Hx of cardiac arrhythmia reason pt had heart cath several yrs ago, unsure exactly what it was, controlled now per pt CHF (congestive heart failure) no longer follows with Dr. 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 Marshall/[place] - no longer sees Hx of colonoscopy Hx of bilateral hip replacements History of tonsillectomy Family History Brother Cancer Father Hypertension Diabetes Heart disease Dementia Mother Diabetes Social History Smoking Status: Never smoker Tobacco Type: Cigarettes Second Hand Exposure: No; Do You Dip or Chew Tobacco: No; Hx Alcohol Use: No Hx Substance Use: No Preferred Language: Citizen Of [place] Communication Ability: Effective Visual Impairment: Limited Hearing Ability: Normal Division Operations Manager Required: No Beliefs That Will Affect Care: None marital status: / Current Living Situation: Family Current Living Situation Comment: with daughter current occupational status: retired Feels Safe at Home: Yes Diet: low salt caffeine: Yes (1 coffee daily) Physical Activity Frequency: Does not Exercise Do you think of yourself as: straight/heterosexual Gender Identity: Male Assistive Devices: Cane and Walker Review of Systems Review of Systems: All systems reviewed & are unremarkable except as noted in Subjective Physical Exam Constitutional: WD/WN, vitals as above Neck: trachea midline, no thyromegaly TCAR site slightly bruised. Small hematoma formation noted. Stable according to nursing from PACU Respiratory: normal respiratory effort, lungs clear to auscultation Cardiovascular: RRR, no murmur, no edema Gastrointestinal (Abdomen): normal bowel sounds, soft, nontender, no hepatosplenomegaly Musculoskeletal: Extremities: extremities normal to inspection Skin: no rashes, warm and dry Neurologic: Nonfocal exam Lymphatic: no cervical lymphadenopathy Results & Data Results & Data Vital Signs (Past 12 Hours) Vital Signs Temp Pulse Pulse Pulse Resp BP BP 10/01/24 13:42 72 18 10/01/24 13:41 75 10/01/24 13:36 73 17 10/01/24 13:24 73 10/01/24 13:12 72 17 10/01/24 13:00 75 14 10/01/24 12:51 74 17 10/01/24 12:48 75 13 10/01/24 12:33 74 18 10/01/24 12:15 76 19 10/01/24 12:03 75 22 10/01/24 11:40 75 20 158/63 H 144/44 H 10/01/24 11:30 76 17 144/43 H 10/01/24 11:20 77 18 144/70 H 143/43 H 10/01/24 11:10 36.5 C 78 20 140/69 135/40 L 10/01/24 11:00 79 20 154/63 H 139/42 L 10/01/24 10:50 80 20 139/43 L 10/01/24 10:40 75 20 124/49 L 144/44 H 10/01/24 10:31 36.6 C 73 22 150/31 H 147/44 H 10/01/24 07:18 36.9 C 67 16 142/63 H 10/01/24 07:00 72 10/01/24 07:00 10/01/24 06:53 36.9 C 66 16 156/70 H 10/01/24 04:47 36.6 C 76 18 170/75 H Pulse Ox O2 Del Method O2 Flow Rate 10/01/24 13:42 95 Nasal Cannula 10/01/24 13:41 10/01/24 13:36 93 10/01/24 13:24 95 10/01/24 13:12 95 10/01/24 13:00 94 Nasal Cannula 2 10/01/24 12:51 92 10/01/24 12:48 95 Nasal Cannula 2 10/01/24 12:33 93 10/01/24 12:15 90 10/01/24 12:03 91 Nasal Cannula 2 10/01/24 11:40 96 Nasal Cannula 2 10/01/24 11:30 96 Nasal Cannula 2 10/01/24 11:20 95 Nasal Cannula 2 10/01/24 11:10 93 Nasal Cannula 2 10/01/24 11:00 92 Oxymask 3 10/01/24 10:50 93 Oxymask 3 10/01/24 10:40 95 Oxymask 6 10/01/24 10:31 98 Oxymask 6 10/01/24 07:18 95 Room Air 10/01/24 07:00 10/01/24 07:00 Nasal Cannula 2 10/01/24 06:53 99 Nasal Cannula 2 10/01/24 04:47 97 Nasal Cannula 3 Critical Care Results & Data Vital Signs (Past 12 Hours) Vital Signs Temp Pulse Pulse Pulse Resp BP BP 10/01/24 13:42 72 18 10/01/24 13:41 75 10/01/24 13:36 73 17 10/01/24 13:24 73 10/01/24 13:12 72 17 10/01/24 13:00 75 14 10/01/24 12:51 74 17 10/01/24 12:48 75 13 10/01/24 12:33 74 18 10/01/24 12:15 76 19 10/01/24 12:03 75 22 10/01/24 11:40 75 20 158/63 H 144/44 H 10/01/24 11:30 76 17 144/43 H 10/01/24 11:20 77 18 144/70 H 143/43 H 10/01/24 11:10 36.5 C 78 20 140/69 135/40 L 10/01/24 11:00 79 20 154/63 H 139/42 L 10/01/24 10:50 80 20 139/43 L 10/01/24 10:40 75 20 124/49 L 144/44 H 10/01/24 10:31 36.6 C 73 22 150/31 H 147/44 H 10/01/24 07:18 36.9 C 67 16 142/63 H 10/01/24 07:00 72 10/01/24 07:00 10/01/24 06:53 36.9 C 66 16 156/70 H 10/01/24 04:47 36.6 C 76 18 170/75 H Pulse Ox O2 Del Method O2 Flow Rate 10/01/24 13:42 95 Nasal Cannula 10/01/24 13:41 10/01/24 13:36 93 10/01/24 13:24 95 10/01/24 13:12 95 10/01/24 13:00 94 Nasal Cannula 2 10/01/24 12:51 92 10/01/24 12:48 95 Nasal Cannula 2 10/01/24 12:33 93 10/01/24 12:15 90 10/01/24 12:03 91 Nasal Cannula 2 10/01/24 11:40 96 Nasal Cannula 2 10/01/24 11:30 96 Nasal Cannula 2 10/01/24 11:20 95 Nasal Cannula 2 10/01/24 11:10 93 Nasal Cannula 2 10/01/24 11:00 92 Oxymask 3 10/01/24 10:50 93 Oxymask 3 10/01/24 10:40 95 Oxymask 6 10/01/24 10:31 98 Oxymask 6 10/01/24 07:18 95 Room Air 10/01/24 07:00 10/01/24 07:00 Nasal Cannula 2 10/01/24 06:53 99 Nasal Cannula 2 10/01/24 04:47 97 Nasal Cannula 3 Lab & Micro Results (Past 24 Hours) RBC 2.71 M/uL (4.70-6.10) L 10/01/24 WBC 8.48 K/ul (4.8-10.8) 10/01/24 Hgb 8.3 g/dl (14.0-18.0) L 10/01/24 Hct 24.9 % (42.0-52.0) L 10/01/24 MCV 91.9 fL (80.0-100.0) 10/01/24 MCH 30.6 pg (25.0-34.0) 10/01/24 MCHC 33.3 g/dL (32.0-36.0) 10/01/24 RDW Standard Deviation 43.1 fL (36.4-46.3) 10/01/24 RDW Coefficient of Variation 13.2 % (11.5-14.5) 10/01/24 Plt Count 202 K/uL (130-400) 10/01/24 MPV 9.5 fL (9.4-12.4) 10/01/24 Neutrophils (%) (Auto) 73.0 % 10/01/24 Lymphocytes (%) (Auto) 15.6 % 10/01/24 Monocytes # (Auto) 0.60 K/uL (0.11-0.59) H 10/01/24 Eosinophils # (Auto) 0.16 K/uL (0.00-0.50) 10/01/24 Immature Granulocyte % (Auto) 1.8 % 10/01/24 Neutrophils # (Auto) 6.20 K/uL (1.40-6.50) 10/01/24 Lymphocytes # (Auto) 1.32 K/uL (1.20-3.40) 10/01/24 Monocytes # (Auto) 0.60 K/uL (0.11-0.59) H 10/01/24 Eosinophils # (Auto) 0.16 K/uL (0.00-0.50) 10/01/24 Basophils # (Auto) 0.05 K/uL (0.00-0.20) 10/01/24 Immature Granulocyte # (Auto) 0.15 K/uL (0.01-0.20) 5 Na 138 mmol/L (136-145) 10/01/24 K 4.0 mmol/L (3.5-5.1) 10/01/24 Cl 98 mmol/L (98-107) 10/01/24 CO2 30 mmol/L (21-32) 10/01/24 Anion Gap 10 (3-11) 10/01/24 BUN 92 mg/dl (6-23) H 10/01/24 Creatinine 7.79 mg/dl (0.6-1.4) H* 10/01/24 BUN/Creatinine Ratio 11.8 (10-20) 10/01/24 Glu 144 mg/dl (70-99(Fasting)) H 10/01/24 Ca 8.6 mg/dl (8.6-10.3) 10/01/24 Phosphorus Level 6.9 mg/dl (2.5-4.9) H 10/01/24 Total Bilirubin 0.4 mg/dl (0.2-1.0) 10/01/24 AST 25 U/L (13-39) 10/01/24 ALT 8 U/L (7-52) 10/01/24 Alkaline Phosphatase 48 U/L (34-104) 10/01/24 TP 5.9 gm/dl (6.0-8.3) L 10/01/24 Albumin 3.1 gm/dl (3.4-5.0) L 10/01/24 Globulin 2.8 gm/dl (2.5-4.0) 10/01/24 Albumin/Globulin Ratio 1.1 (0.9-2) 10/01/24 Mg 2.0 mg/dl (1.7-2.4) 10/01/24 05:47 Calcium Level 8.6 mg/dl (8.6-10.3) 10/01/24 05:47 Prothromb Time International Ratio 1.1 (0.9-1.1) 10/01/24 05:4 7 I & O Totals 24 Hours 09/30/24 10/01/24 10/02/24 06:59 06:59 06:59 Intake Total 780 / 780 50.25 / 50.25 500 / 500 Output Total 1602 / 1602 1952 195 Balance -822 / -822 -1902.75 / -1902.75 470 / 470 Cumulative 09/25/24 19:56 thru 10/01/24 11:46 Intake Total 4642.85 Output Total 6920 Balance -2277.15 RT Ventilator Mngmt (Last Documented) Ventilator Ordered Settings Respiratory Rate 18 10/01/24 13:42 Ventilator - PT Measurements Respiratory Rate 18 Coding Level of Care Code 71619 INT INP/OBS CARE 2/55MIN Diagnoses Vision loss of right eye H54.61 Symptomatic stenosis of right carotid artery I65.21
--- NOTE | 2024-10-01 14:22 | Pharmacy Report ---
Pharmacy Glycemic Short Note 2 - Date of Service October 01, 2024 - Glycemic Short BSG Results (Last 24 hours): 09/30/24 09/30/24 10/01/24 16:28 20:54 05:47 Glucose 144 H POC Glucose 187 H 180 H 10/01/24 10/01/24 10/01/24 07:50 10:32 13:00 Glucose POC Glucose 176 H 207 H 218 H OUTPATIENT ANTIDIABETIC REGIMEN: * glipizide 10mg PO daily * Novolog 3units SQ BID * Lantus 12 units SQ HS HbA1C: 7.7 (09/26)- PD ASSESSMENT: * Pt is a 69 YOM admitted on 09/26 with a right ocular stroke. Now POD #0 R TCAR. History of DM2 on multiple anti-hyperglycemic agents at home as well as ESRD on peritoneal dialysis. Pharmacy consulted to assist with inpatient glycemic management. * BSGs elevated the last 24h: 121-817-299-180-176mg/dL. Received 10 units of basal and 22 units of bolus insulin yesterday. * No insulin administered this AM prior to surgery. Plan for 10 units of Lantus X 1 dose this afternoon + HS scale depending on BSG. Fasting BSGs have been above goal. Novolog tightened. PLAN FOR INPATIENT GLYCEMIC CONTROL: * Hold outpatient oral diabetes medications * Basal insulin * Lantus 10 units SQ X 1 + HS scale depending on BSG - reassess basal in AM * Bolus insulin * NovoLog per scale ACHS or Q6hrs while NPO * Goal Range: Low 110 mg/dL - High 140 mg/dL * Correction Factor: 20 mg/dL/unit * Nutritional / Prandial insulin per carb ratio of 1 unit per 12 grams CHO consumed
--- NOTE | 2024-10-01 15:30 | Hospitalist Progress Note ---
Date of Service October 01, 2024 Assessment & Plan (1) Stroke-like symptoms: Plan pt is a 69-year-old male with past medical history significant for end-stage renal disease on peritoneal dialysis, hypertension, hyperlipidemia, history of PE on chronic Coumadin, type 2 diabetes, peripheral vascular disease, CHF who presents with right ocular stroke. Patient was admitted on 08/30/2024 with left eye vision loss, outpatient ophthalmology found to have central artery occlusion and patient was admitted to hospital. Imaging studies showed high-grade stenosis of the bilateral internal and external carotid arteries. 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 Will do stroke protocol with MRI scan, echo Neurochecks Telemetry Neurology consulted, appreciate recs Vascular surgery consulted, appreciate recs 09/26- pt with worsening vision, repeat stat head CT and chest XRAY- no acute change. Holding IV heparin 09/27- to have R TCAR on Tuesday, per Vascular continue brillinta, aspirin and statin 09/28- stable 09/29- stable 09/30- TCAR with vascular in the AM, NPO after midnight 10/01- s/p R TCAR, stable post op, being monitored in the ICU Non-ST elevated IL HTN Troponin 2486 Denies chest pain EKG has some ST depressions in lateral leads Has shortness on exertion Patient has history of PE on Coumadin INR is 1.8 today Follow echo Hold heparin and warfarin at this time On amlodipine, hydralazine, Imdur and Coreg Cardiology consult for further recommendation 09/30- episode of chest pain overnight relived by nitro, appreciate further cardiology recs Complicated bronchitis vs. Possible Pneumonia Acute hypoxic respiratory Failure Chest XRAY from 09/30 noting infection Started on Augmentin BID Pt with occasional need for oxygen Will need 2 step before discharge Hyperlipidemia On statin and fenofibrate History of PE Holding anticoagulation as above End-stage renal disease On peritoneal dialysis at home Continue home Bumex Nephrology consulted, appreciate further recs Anemia Hemoglobin 7.7 Hemoglobin 8.5 recently Usually seems to be 9-10 range Will check stool for Hemoccult Iron studies, vitamin B12 folate levels Repeat H/H Holding anticoagulation as above 09/27- pt with attempt at blood transfusion yesterday but it was discontinued when he developed chest tightness and SOB. Hgb 8.1 today, improved from 7.2 on last check. Continue to monitor H/H 09/28-hgb down to 7.6, continue to monitor 09/29- hgb back up to 8.1 Diabetes Hold glipizide and home Lantus Lantus 5 daily and sliding scale Close monitor BPH On finasteride and Flomax Monitor for urinary retention Depression On Zoloft Diet: HH/Dialysis renal, DM DVT prophylaxis: SCDs, IV heparin on hold. Monitor h and h Dispo: PT/OT for further recs Admission and Anticipated Discharge Date Admission Date: September 26, 2024 Subjective pt was seen later in the PM after the Right TCAR nursing at bedside assisting with feeding Vision stable Denying acute concerns. Review of Systems Review of Systems: All systems reviewed & are unremarkable except as noted in Subjective Physical Exam Physical Exam: General: Alert, oriented. No acute distress HEENT: decreased vision in the both eyes HEENT: NC/AT CV: RRR Resp: Breath sounds decreased bilaterally, no increased effort of breathing Abdomen: Soft, nontender Extremities: No edema in lower extremities bilaterally. Results & Data Results & Data Vital Signs (Past 12 Hours) Vital Signs Temp Pulse Pulse Pulse Resp BP BP 10/01/24 13:42 72 18 10/01/24 13:41 75 10/01/24 13:36 73 17 10/01/24 13:24 73 10/01/24 13:12 72 17 10/01/24 13:00 75 14 10/01/24 12:51 74 17 10/01/24 12:48 75 13 10/01/24 12:33 74 18 10/01/24 12:15 76 19 10/01/24 12:03 75 22 10/01/24 11:40 75 20 158/63 H 144/44 H 10/01/24 11:30 76 17 144/43 H 10/01/24 11:20 77 18 144/70 H 143/43 H 10/01/24 11:10 36.5 C 78 20 140/69 135/40 L 10/01/24 11:00 79 20 154/63 H 139/42 L 10/01/24 10:50 80 20 139/43 L 10/01/24 10:40 75 20 124/49 L 144/44 H 10/01/24 10:31 36.6 C 73 22 150/31 H 147/44 H 10/01/24 07:18 36.9 C 67 16 142/63 H 10/01/24 07:00 72 10/01/24 07:00 10/01/24 06:53 36.9 C 66 16 156/70 H 10/01/24 04:47 36.6 C 76 18 170/75 H Pulse Ox O2 Del Method O2 Flow Rate 10/01/24 13:42 95 Nasal Cannula 10/01/24 13:41 10/01/24 13:36 93 10/01/24 13:24 95 10/01/24 13:12 95 10/01/24 13:00 94 Nasal Cannula 2 10/01/24 12:51 92 10/01/24 12:48 95 Nasal Cannula 2 10/01/24 12:33 93 10/01/24 12:15 90 10/01/24 12:03 91 Nasal Cannula 2 10/01/24 11:40 96 Nasal Cannula 2 10/01/24 11:30 96 Nasal Cannula 2 10/01/24 11:20 95 Nasal Cannula 2 10/01/24 11:10 93 Nasal Cannula 2 10/01/24 11:00 92 Oxymask 3 10/01/24 10:50 93 Oxymask 3 10/01/24 10:40 95 Oxymask 6 10/01/24 10:31 98 Oxymask 6 10/01/24 07:18 95 Room Air 10/01/24 07:00 10/01/24 07:00 Nasal Cannula 2 10/01/24 06:53 99 Nasal Cannula 2 10/01/24 04:47 97 Nasal Cannula 3
[2024-10-01] MEDS: LANTUS PER UNIT CHARGE SC ONE (15:39)
[2024-10-01] MEDS: ceFAZolin 2000MG 2,000 MG/15 ML SYR IV SCH (15:44)
[2024-10-01] MEDS: oxyCODONE/ACETAMINOPHEN 5mg/325mg TAB PO PRN (19:46)
[2024-10-01] MEDS: LANTUS PER UNIT CHARGE SC SCH (20:26)
[2024-10-01] MEDS: PROMETHAZINE 6.25 MG/50.25 ML BAG IV PRN (21:20)
[2024-10-02 05:22] LABS: Basophils # (auto) 0.05 K/uL (0.00-0.20); Basophils % (auto) 0.6 %; Eosinophils # (auto) 0.14 K/uL (0.00-0.50); Eosinophils % (auto) 1.6 %; Hematocrit (blood only) 22.8 % (42.0-52.0); Hemoglobin 7.5 g/dl (14.0-18.0); Immature Granulocytes % (auto) 1.2 %; Lymphocytes # (auto) 1.05 K/uL (1.20-3.40); Lymphocytes % (auto) 12.2 %; Mean Corpuscular Hemoglobin 30.2 pg (25.0-34.0); Mean Corpuscular Hgb Conc 32.9 g/dL (32.0-36.0); Mean Corpuscular Volume 91.9 fL (80.0-100.0); Mean Platelet Volume 10.1 fL (9.4-12.4); Monocytes # (auto) 0.57 K/uL (0.11-0.59); Monocytes % (auto) 6.6 %; Neutrophils # (auto) 6.71 K/uL (1.40-6.50); Neutrophils % (auto) 77.8 %; Nucleated RBC # (auto) 0.02 K/uL (0.00-0.12); Nucleated RBC % (auto) 0.2 %; Platelet Count 211 K/uL (130-400); RDW Coefficient of Variation 13.7 % (11.5-14.5); RDW Standard Deviation 44.9 fL (36.4-46.3); Red Blood Count 2.48 M/uL (4.70-6.10); White Blood Count 8.62 K/ul (4.8-10.8)
[2024-10-02 05:38] LABS: Albumin Globulin Ratio 1.2 (0.9-2); Albumin Level 3.1 gm/dl (3.4-5.0); Bilirubin,Total 0.3 mg/dl (0.2-1.0); Calcium 8.3 mg/dl (8.6-10.3); Creatinine Clr Calc Pharmacy 11.1 ml/min; Globulin 2.6 gm/dl (2.5-4.0); Magnesium 1.9 mg/dl (1.7-2.4); Phosphorus 5.8 mg/dl (2.5-4.9); Potassium 3.5 mmol/L (3.5-5.1); Total Protein 5.7 gm/dl (6.0-8.3)
[2024-10-02 05:45] LABS: RBC Morphology Unremarkable
[2024-10-02 05:51] LABS: INR 1.1 (0.9-1.1); Prothrombin Time 12.2 Seconds (9.0-12.0)
--- NOTE | 2024-10-02 07:33 | Critical Care Progress Note ---
Date of Service October 02, 2024 Assessment & Plan (1) Vision loss of right eye: (2) Symptomatic stenosis of right carotid artery: Plan Impression: 69-year-old male status post right TCAR. Doing well clinically. Neck hematoma stable. Hemodynamically stable Recommendations: 1. Status post TCAR: Patient is doing well clinically. Continue to follow hematoma clinically. Management and disposition per vascular surgery. Defer anticoagulation and antiplatelet agents to vascular surgery. 2. Anemia: Likely postoperative blood loss. Slight decrease today. No indication for transfusion currently. Continue to follow. 3. End-stage renal disease. Continue peritoneal dialysis. 4. Discontinue arterial line. Out of bed to chair as tolerated. 5. Urinary retention: Lux catheter in place. Long-term management per primary admitting service. Patient seen urology in the outpatient setting previously. Patient's other medical issues have been well addressed by his primary admitting service as well as multiple consultants. Critical care issues resolved. He can transfer out of the ICU. Critical care will sign off. Admission and Anticipated Discharge Date Admission Date: September 26, 2024 Subjective Patient seen and examined. EMR reviewed. Discussed with bedside critical care nurse as well as on multidisciplinary rounds. Patient is doing well clinically. He remains hemodynamically stable. His hematoma in his neck is softer. He is having some slight pain in his surgical site. He is swallowing. His voice is normal. He has no neurological complaints. He has had issues voiding and required straight cath several times overnight. A Lux catheter was placed this morning. He had similar issues with urinary retention during his last hospitalization. Review of Systems Review of Systems: All systems reviewed & are unremarkable except as noted in Subjective Physical Exam Constitutional: WD/WN, vitals as above Neck: trachea midline, no thyromegaly Neck hematoma stable. Soft. Respiratory: normal respiratory effort, lungs clear to auscultation Cardiovascular: RRR, no murmur, no edema Gastrointestinal (Abdomen): normal bowel sounds, soft, nontender, no hepatosplenomegaly Musculoskeletal: Extremities: extremities normal to inspection Skin: no rashes, warm and dry Lymphatic: no cervical lymphadenopathy Results & Data Results & Data Vital Signs (Past 12 Hours) Vital Signs Temp Pulse Resp BP Pulse Ox 10/02/24 06:57 74 10/02/24 06:21 74 16 95 10/02/24 05:09 73 20 96 10/02/24 04:00 36.7 C 74 27 H 97 10/02/24 03:12 73 20 94 10/02/24 02:06 36.8 C 69 16 94 10/02/24 01:07 192/64 H 10/02/24 00:21 178/57 H 10/02/24 00:00 36.8 C 75 19 95 10/02/24 00:00 75 10/01/24 23:03 67 9 L 160/77 H 89 L 10/01/24 22:03 160/51 H 10/01/24 22:03 75 14 98 10/01/24 22:00 36.7 C 145/101 H 10/01/24 21:15 80 19 95 10/01/24 20:21 102/75 10/01/24 20:06 36.9 C 75 21 95 Critical Care Results & Data Vital Signs (Past 12 Hours) Vital Signs Temp Pulse Resp BP Pulse Ox 10/02/24 06:57 74 10/02/24 06:21 74 16 95 10/02/24 05:09 73 20 96 10/02/24 04:00 36.7 C 74 27 H 97 10/02/24 03:12 73 20 94 10/02/24 02:06 36.8 C 69 16 94 10/02/24 01:07 192/64 H 10/02/24 00:21 178/57 H 10/02/24 00:00 36.8 C 75 19 95 10/02/24 00:00 75 10/01/24 23:03 67 9 L 160/77 H 89 L 10/01/24 22:03 160/51 H 10/01/24 22:03 75 14 98 10/01/24 22:00 36.7 C 145/101 H 10/01/24 21:15 80 19 95 10/01/24 20:21 102/75 10/01/24 20:06 36.9 C 75 21 95 Lab & Micro Results (Past 24 Hours) RBC 2.48 M/uL (4.70-6.10) L 10/02/24 WBC 8.62 K/ul (4.8-10.8) 10/02/24 Hgb 7.5 g/dl (14.0-18.0) L 10/02/24 Hct 22.8 % (42.0-52.0) L 10/02/24 MCV 91.9 fL (80.0-100.0) 10/02/24 MCH 30.2 pg (25.0-34.0) 10/02/24 MCHC 32.9 g/dL (32.0-36.0) 10/02/24 RDW Standard Deviation 44.9 fL (36.4-46.3) 10/02/24 RDW Coefficient of Variation 13.7 % (11.5-14.5) 10/02/24 Plt Count 211 K/uL (130-400) 10/02/24 MPV 10.1 fL (9.4-12.4) 10/02/24 Nucleated Red Blood Cells % (auto) 0.2 % 10/02 Nucleated RBC Absolute Count (auto) 0.02 K/uL (0.00-0.12) 0 10/02/24 Neutrophils (%) (Auto) 77.8 % 10/02/24 Lymphocytes (%) (Auto) 12.2 % 10/02/24 Monocytes # (Auto) 0.57 K/uL (0.11-0.59) 10/02/24 Eosinophils # (Auto) 0.14 K/uL (0.00-0.50) 10/02/24 Immature Granulocyte % (Auto) 1.2 % 10/02/24 Neutrophils # (Auto) 6.71 K/uL (1.40-6.50) H 10/02/24 Lymphocytes # (Auto) 1.05 K/uL (1.20-3.40) L 10/02/24 Monocytes # (Auto) 0.57 K/uL (0.11-0.59) 10/02/24 Eosinophils # (Auto) 0.14 K/uL (0.00-0.50) 10/02/24 Basophils # (Auto) 0.05 K/uL (0.00-0.20) 10/02/24 Immature Granulocyte # (Auto) 0.10 K/uL (0.01-0.20) 5 Red Blood Cell Morphology Unremarkable 10/02/24 Na 139 mmol/L (136-145) 10/02/24 K 3.5 mmol/L (3.5-5.1) 10/02/24 Cl 101 mmol/L (98-107) 10/02/24 CO2 28 mmol/L (21-32) 10/02/24 Anion Gap 10 (3-11) 10/02/24 BUN 76 mg/dl (6-23) H 10/02/24 Creatinine 6.89 mg/dl (0.6-1.4) H* 10/02/24 BUN/Creatinine Ratio 11.0 (10-20) 10/02/24 Glu 197 mg/dl (70-99(Fasting)) H 10/02/24 Ca 8.3 mg/dl (8.6-10.3) L 10/02/24 Phosphorus Level 5.8 mg/dl (2.5-4.9) H 10/02/24 Total Bilirubin 0.3 mg/dl (0.2-1.0) 10/02/24 AST 30 U/L (13-39) 10/02/24 ALT 5 U/L (7-52) L 10/02/24 Alkaline Phosphatase 47 U/L (34-104) 10/02/24 TP 5.7 gm/dl (6.0-8.3) L 10/02/24 Albumin 3.1 gm/dl (3.4-5.0) L 10/02/24 Globulin 2.6 gm/dl (2.5-4.0) 10/02/24 Albumin/Globulin Ratio 1.2 (0.9-2) 10/02/24 Mg 1.9 mg/dl (1.7-2.4) 10/02/24 04:54 Calcium Level 8.3 mg/dl (8.6-10.3) L 10/02/24 04:54 Prothromb Time International Ratio 1.1 (0.9-1.1) 10/02/24 04:5 4 I & O Totals 24 Hours 10/01/24 10/02/24 10/03/24 06:59 06:59 06:59 Intake Total 50.25 / 50.25 1700.25 / 1700.25 Output Total 1952 905 / 905 Balance -190.75 / -1901.75 795.25 / 795.25 Cumulative 09/25/24 19:56 thru 10/02/24 06:02 Intake Total 5843.10 Output Total 7795 Balance - RT Ventilator Mngmt (Last Documented) Ventilator Ordered Settings Respiratory Rate 16 10/02/24 06:21 Ventilator - PT Measurements Respiratory Rate 16 Coding Level of Care Code 02016 SUB INP/OBS CARE 2/35MIN Diagnoses Vision loss of right eye H54.61 Symptomatic stenosis of right carotid artery I65.21
--- NOTE | 2024-10-02 08:32 | Surgery Progress Note ---
Date of Service October 02, 2024 Assessment & Plan (1) S/P vascular surgery: Plan: Doing well post TCAR. Can transfer to floor and d\c whenever the medical service decides. (2) Urinary retention: Plan: Will place a petty and follow up with urology as he did after his previous procedure. Admission and Anticipated Discharge Date Admission Date: September 26, 2024 Subjective Patient complains of slight discomfort in the incision. Physical Exam Constitutional: WD/WN, vitals as above Neck: trachea midline Respiratory: normal respiratory effort; no respiratory distress Cardiovascular: RRR, no murmur, no edema Skin: + incision (Large walnut size hematoma o f the incision, soft) Neurologic: CN's II-XI intact bilaterally, normal sensation to monofilament and moves all extremities Psychiatric: A+Ox3, euthymic affect Results & Data Vital Signs (Past 12 Hours) Vital Signs Temp Pulse Pulse Resp BP Pulse Ox 10/02/24 08:25 36.7 C 75 16 10/02/24 06:57 74 10/02/24 06:21 74 16 95 10/02/24 05:09 73 20 96 10/02/24 04:00 36.7 C 74 27 H 97 10/02/24 03:12 73 20 94 10/02/24 02:06 36.8 C 69 16 94 10/02/24 01:07 192/64 H 10/02/24 00:21 178/57 H 10/02/24 00:00 36.8 C 75 19 95 10/02/24 00:00 75 10/01/24 23:03 67 9 L 160/77 H 89 L 10/01/24 22:03 160/51 H 10/01/24 22:03 75 14 98 10/01/24 22:00 36.7 C 145/101 H 10/01/24 21:15 80 19 95
[2024-10-02] MEDS: LANTUS PER UNIT CHARGE SC ONE (09:15)
--- NOTE | 2024-10-02 09:43 | Nephrology Progress Note ---
Date of Service October 02, 2024 Assessment & Plan (1) End stage renal disease: (2) Complex renal cyst: (3) NSTEMI (non-ST elevated myocardial infarction): (4) Vision loss of right eye: (5) Stroke-like symptoms: (6) Acute blood loss as cause of postoperative anemia: (7) Peritoneal dialysis catheter in place: (8) Central artery occlusion of retina: Plan 69-year-old gentleman with past medical history significant for end-stage kidney disease on peritoneal dialysis since May 2024, diabetes, peripheral vascular disease, prior history of GBS admitted to the hospital on 09/26/2023 with strokelike symptoms and found to have right-sided vision loss with carotid occlusion. He recently had left-sided vision loss with occlusion of central retinal artery. Workup at that time showed bilateral significant carotid artery stenosis and he had left-sided TCAR on 09/19/2024. He saw his drafter on 09/25/2024 when he was found to have right-sided vision loss and right retinal artery occlusion and he was sent to ER for admission and further evaluation. He was also noted to have non-STEMI with elevated troponin, seen by cardiology but thought to be high risk for any intervention at this time and continued on medical management. Hemoglobin was noted to be low at 7.3 after some blood loss and hematoma post TCAR on 09/19/24. Hemoglobin improved after blood transfusion. Had right TCAR on 10/01/24. Has been getting peritoneal dialysis as per his out patient's schedule, has been tolerating well and having decent ultrafiltration. Blood pressure has been variable. Volume status acceptable. Electrolyte acceptable. -- continue CCPD tonight 4 exchanges, 2 L fill volume, 2.5% Delflex, Fill 10 minutes/dwell 90 minutes/drain 20 minutes, EDW 95 kg -- Dose medications for eGFR less than 10 -- Continue Bumex 4 mg twice a day -- Renvela 800 mg 3 times a day with meals -- monitor H &H Admission and Anticipated Discharge Date Admission Date: September 26, 2024 Subjective Gene was seen and evaluated in ICU this morning. He reports generally feeling well but reports his eyesight actually worsen and everything looks much darker now. Right neck TCAR site large hematoma but noted slight improvement. Hemoglobin dropped slightly to 7.5 this morning compared to 8.3 yesterday. Had peritoneal dialysis last night uneventful. Blood pressure elevated, electrolyte acceptable. Review of Systems Review of Systems: All systems reviewed & are unremarkable except as noted in Subjective Physical Exam Constitutional: WD/WN, vitals as above no acute distress Eyes: + anicteric sclerae Neck: large hematoma right side Respiratory: Auscultation: lungs clear to auscultation bilaterally Cardiovascular: Rate/Rhythm: regular rate and regular rhythm Heart Sounds: normal S1 and normal S2 Extremities: + AV fistula (left BC AVF with thrill and bruit); no edema Gastrointestinal (Abdomen): PD catheter site with no erythema, discharge, tenderness Skin: no rashes, warm and dry Neurologic: no focal motor deficits Psychiatric: Orientation: alert and oriented x 3 Results & Data Vital Signs (Past 12 Hours) Vital Signs Temp Pulse Pulse Resp BP Pulse Ox 10/02/24 08:25 36.7 C 75 16 10/02/24 06:57 74 10/02/24 06:21 74 16 95 10/02/24 05:09 73 20 96 10/02/24 04:00 36.7 C 74 27 H 97 10/02/24 03:12 73 20 94 10/02/24 02:06 36.8 C 69 16 94 10/02/24 01:07 192/64 H 10/02/24 00:21 178/57 H 10/02/24 00:00 36.8 C 75 19 95 10/02/24 00:00 75 10/01/24 23:03 67 9 L 160/77 H 89 L 10/01/24 22:03 160/51 H 10/01/24 22:03 75 14 98 10/01/24 22:00 36.7 C 145/101 H PG Care Time/CCT Total # of Minutes Spent Total Time Spent with Patient: Total time spent is greater than 50% in coordination of care (as documented) at patient's floor/unit and/or counseling patient: Coding Level of Care Code 69206 SUB INP/OBS CARE 2/35MIN Diagnoses End stage renal disease N18.6 Complex renal cyst N28.1 NSTEMI (non-ST elevated myocardial infarction) I21.4 Vision loss of right eye H54.61 Stroke-like symptoms R29.90 Acute blood loss as cause of postoperative anemia D62 Peritoneal dialysis catheter in place Z99.2 Central artery occlusion of retina H34.10
[2024-10-02 12:45] LABS: Hematocrit (blood only) 21.2 % (42.0-52.0)
--- NOTE | 2024-10-02 12:59 | Hospitalist Progress Note ---
Date of Service October 02, 2024 Assessment & Plan (1) Stroke-like symptoms: Plan pt is a 69-year-old male with past medical history significant for end-stage renal disease on peritoneal dialysis, hypertension, hyperlipidemia, history of PE on chronic Coumadin, type 2 diabetes, peripheral vascular disease, CHF who presents with right ocular stroke. Patient was admitted on 08/30/2024 with left eye vision loss, outpatient ophthalmology found to have central artery occlusion and patient was admitted to hospital. Imaging studies showed high-grade stenosis of the bilateral internal and external carotid arteries. 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 Will do stroke protocol with MRI scan, echo Neurochecks Telemetry Neurology consulted, appreciate recs Vascular surgery consulted, appreciate recs 09/26- pt with worsening vision, repeat stat head CT and chest XRAY- no acute change. Holding IV heparin 09/27- to have R TCAR on Tuesday, per Vascular continue brillinta, aspirin and statin 09/28- stable 09/29- stable 09/30- TCAR with vascular in the AM, NPO after midnight 10/01- s/p R TCAR, stable post op, being monitored in the ICU 10/02- stable, cleared for discharge by vascular. Awaiting rehab placement. Continue Brilinta and aspirin. Warfarin still on hold. Anemia Hemoglobin 7.7 Hemoglobin 8.5 recently Usually seems to be 9-10 range Will check stool for Hemoccult Iron studies, vitamin B12 folate levels Repeat H/H Holding anticoagulation as above 09/27- pt with attempt at blood transfusion yesterday but it was discontinued when he developed chest tightness and SOB. Hgb 8.1 today, improved from 7.2 on last check. Continue to monitor H/H 09/28-hgb down to 7.6, continue to monitor 09/29- hgb back up to 8.1 10/02- hgb down postop to 7.0. Issues with prior transfusion, will need diuresis before and after with blood transfusion per previous cardiology recs Non-ST elevated MO HTN Troponin 1668 Denies chest pain EKG has some ST depressions in lateral leads Has shortness on exertion Patient has history of PE on Coumadin INR is 1.8 today Follow echo Hold heparin and warfarin at this time On amlodipine, hydralazine, Imdur and Coreg Cardiology consult for further recommendation 09/30- episode of chest pain overnight relived by nitro, appreciate further cardiology recs Complicated bronchitis vs. Possible Pneumonia Acute hypoxic respiratory Failure Chest XRAY from 09/30 noting infection Started on Augmentin BID Pt with occasional need for oxygen Will need 2 step before discharge Hyperlipidemia On statin and fenofibrate History of PE Holding anticoagulation as above End-stage renal disease On peritoneal dialysis at home Continue home Bumex Nephrology consulted, appreciate further recs Anemia Hemoglobin 7.7 Hemoglobin 8.5 recently Usually seems to be 9-10 range Will check stool for Hemoccult Iron studies, vitamin B12 folate levels Repeat H/H Holding anticoagulation as above 09/27- pt with attempt at blood transfusion yesterday but it was discontinued when he developed chest tightness and SOB. Hgb 8.1 today, improved from 7.2 on last check. Continue to monitor H/H 09/28-hgb down to 7.6, continue to monitor 09/29- hgb back up to 8.1 Diabetes Hold glipizide and home Lantus Lantus 5 daily and sliding scale Close monitor BPH On finasteride and Flomax Monitor for urinary retention Depression On Zoloft Diet: HH/Dialysis renal, DM DVT prophylaxis: SCDs, IV heparin on hold. Monitor h and h Dispo: PT/OT for further recs Admission and Anticipated Discharge Date Admission Date: September 26, 2024 Subjective Pt was seen sitting up in bed eating Denied acute concerns Vision stable Review of Systems Review of Systems: All systems reviewed & are unremarkable except as noted in Subjective Physical Exam Physical Exam: General: Alert, oriented. No acute distress HEENT: decreased vision in the both eyes HEENT: NC/AT CV: RRR Resp: Breath sounds decreased bilaterally, no increased effort of breathing Abdomen: Soft, nontender Extremities: No edema in lower extremities bilaterally. Results & Data Results & Data Vital Signs (Past 12 Hours) Vital Signs Temp Pulse Pulse Resp BP BP Pulse Ox 10/02/24 11:00 37.0 C 71 17 155/62 H 96 10/02/24 10:15 69 17 10/02/24 09:50 154/79 H 10/02/24 09:48 72 16 95 10/02/24 09:06 72 96 10/02/24 08:45 10/02/24 08:25 36.7 C 75 16 10/02/24 08:15 76 20 94 10/02/24 07:00 74 18 95 10/02/24 06:57 74 10/02/24 06:21 74 16 95 10/02/24 05:09 73 20 96 10/02/24 04:00 36.7 C 74 27 H 97 10/02/24 03:12 73 20 94 10/02/24 02:06 36.8 C 69 16 94 10/02/24 01:07 192/64 H O2 Del Method 10/02/24 11:00 Room Air 10/02/24 10:15 10/02/24 09:50 10/02/24 09:48 Room Air 10/02/24 09:06 Room Air 10/02/24 08:45 Room Air 10/02/24 08:25 10/02/24 08:15 Room Air 10/02/24 07:00 Room Air 10/02/24 06:57 10/02/24 06:21 10/02/24 05:09 10/02/24 04:00 10/02/24 03:12 10/02/24 02:06 10/02/24 01:07
--- NOTE | 2024-10-02 14:05 | Pharmacy Report ---
Pharmacy Glycemic Short Note 2 - Date of Service October 02, 2024 - Glycemic Short BSG Results (Last 24 hours): 10/01/24 10/01/24 10/02/24 17:24 20:16 04:54 Glucose 197 H POC Glucose 211 H 249 H 10/02/24 10/02/24 07:00 10:58 Glucose POC Glucose 232 H 116 H OUTPATIENT ANTIDIABETIC REGIMEN: * glipizide 10mg PO daily * Novolog 3units SQ BID * Lantus 12 units SQ HS HbA1C: 7.7 (09/26)- PD ASSESSMENT: 10/02 * AM glucose 232 mg/dL. Will trial NPH tonight with PD exchanges. Continue with 10 units of lantus in the AM * Correction factor and carb ratio tightened- lunch BSG within goal range. Will monitor 10/01 * Pt is a 69 YOM admitted on 09/26 with a right ocular stroke. Now POD #0 R TCAR. History of DM2 on multiple anti-hyperglycemic agents at home as well as ESRD on peritoneal dialysis. Pharmacy consulted to assist with inpatient glycemic management. * BSGs elevated the last 24h: [phone]/dL. Received 10 units of basal and 22 units of bolus insulin yesterday. * No insulin administered this AM prior to surgery. Plan for 10 units of Lantus X 1 dose this afternoon + HS scale depending on BSG. Fasting BSGs have been above goal. Novolog tightened. PLAN FOR INPATIENT GLYCEMIC CONTROL: * Hold outpatient oral diabetes medications * Basal insulin * Lantus 10 units SQ qAM. NPH 10 units HS * Bolus insulin * NovoLog per scale ACHS or Q6hrs while NPO * Goal Range: Low 110 mg/dL - High 140 mg/dL * Correction Factor: 15 mg/dL/unit * Nutritional / Prandial insulin per carb ratio of 1 unit per 10 grams CHO consumed
--- NOTE | 2024-10-02 14:53 | Ultrasound Report ---
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 COMPARISON: 09/20/2024 TECHNIQUE: Multiple real-time sonographic images of the right upper extremity arterial structures wer e obtained assessing grayscale appearance, color and spectral flow FINDINGS: Normal-appearing triphasic waveforms in the brachial artery, peak systolic velocities measuring up to 89 cm/s. No dissection, high-grade stenosis, arterial occlusion or pseudoaneurysm identified on erwin allison's study. 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 ACT 112: Negative or not required by law. The above report was generated using voice recognition software. It may contain grammatical, syntax o r spelling errors. Electronically signed by: Alan Chaudhary M.D. 10/02/2024 2:51 PM
[2024-10-02] MEDS: INSULIN HUMAN NPH SC SCH (21:17)
[2024-10-03 07:22] LABS: Hematocrit (blood only) 21.2 % (42.0-52.0); Hemoglobin 6.9 g/dl (14.0-18.0); Mean Corpuscular Hemoglobin 30.4 pg (25.0-34.0); Mean Corpuscular Hgb Conc 32.5 g/dL (32.0-36.0); Mean Corpuscular Volume 93.4 fL (80.0-100.0); Mean Platelet Volume 10.2 fL (9.4-12.4); Platelet Count 189 K/uL (130-400); RDW Coefficient of Variation 13.8 % (11.5-14.5); RDW Standard Deviation 45.7 fL (36.4-46.3); Red Blood Count 2.27 M/uL (4.70-6.10)
[2024-10-03 07:25] LABS: Alanine Aminotransferase < 3 U/L (7-52); Albumin Globulin Ratio 1.2 (0.9-2); Alkaline Phosphatase 44 U/L (34-104); Anion Gap 11 (3-11); Aspartate Aminotransferase 28 U/L (13-39); BUN Creatinine Ratio 10.4 (10-20); Bilirubin,Total 0.3 mg/dl (0.2-1.0); Blood Urea Nitrogen 67 mg/dl (6-23); Calcium 8.6 mg/dl (8.6-10.3); Carbon Dioxide 29 mmol/L (21-32); Chloride 99 mmol/L (98-107); Globulin 2.6 gm/dl (2.5-4.0); Glucose 183 mg/dl (70-99(Fasting)); INR 1.1 (0.9-1.1); Phosphorus 5.7 mg/dl (2.5-4.9); Potassium 3.5 mmol/L (3.5-5.1); Prothrombin Time 11.9 Seconds (9.0-12.0); Sodium 139 mmol/L (136-145); Total Protein 5.6 gm/dl (6.0-8.3)
[2024-10-03 07:38] LABS: Basophils # (auto) 0.05 K/uL (0.00-0.20); Basophils % (auto) 0.6 %; Eosinophils # (auto) 0.17 K/uL (0.00-0.50); Immature Granulocytes # (auto) 0.07 K/uL (0.01-0.20); Immature Granulocytes % (auto) 0.8 %; Lymphocytes # (auto) 1.15 K/uL (1.20-3.40); Lymphocytes % (auto) 13.9 %; Monocytes # (auto) 0.67 K/uL (0.11-0.59); Monocytes % (auto) 8.1 %; Neutrophils # (auto) 6.19 K/uL (1.40-6.50); Neutrophils % (auto) 74.6 %; Polychromasia 1+
[2024-10-03] MEDS: LANTUS PER UNIT CHARGE SC SCH (08:36)
--- NOTE | 2024-10-03 09:56 | Nephrology Progress Note ---
Date of Service October 03, 2024 Assessment & Plan (1) End stage renal disease: (2) Complex renal cyst: (3) NSTEMI (non-ST elevated myocardial infarction): (4) Vision loss of right eye: (5) Stroke-like symptoms: (6) Acute blood loss as cause of postoperative anemia: (7) Peritoneal dialysis catheter in place: (8) Central artery occlusion of retina: Plan 69-year-old gentleman with past medical history significant for end-stage kidney disease on peritoneal dialysis since May 2024, diabetes, peripheral vascular disease, prior history of GBS admitted to the hospital on 09/26/2023 with strokelike symptoms and found to have right-sided vision loss with carotid occlusion. He recently had left-sided vision loss with occlusion of central retinal artery. Workup at that time showed bilateral significant carotid artery stenosis and he had left-sided TCAR on 09/19/2024. He saw his sewing supervisor on 09/25/2024 when he was found to have right-sided vision loss and right retinal artery occlusion and he was sent to ER for admission and further evaluation. He was also noted to have non-STEMI with elevated troponin, seen by cardiology but thought to be high risk for any intervention at this time and continued on medical management. Hemoglobin was noted to be low at 7.3 after some blood loss and hematoma post TCAR on 09/19/24. Hemoglobin improved after blood transfusion. Had right TCAR on 10/01/24. Has been getting peritoneal dialysis as per his out patient's schedule, has been tolerating well and having decent ultrafiltration. Blood pressure has been variable. Volume status acceptable. Electrolyte acceptable. Hb dropped to 6.9, slow drop over last 2 days. Recent T sat 25 % -- continue CCPD tonight 4 exchanges, 2 L fill volume, 2.5% Delflex, Fill 10 minutes/dwell 90 minutes/drain 20 minutes, EDW 95 kg -- Dose medications for eGFR less than 10 -- Continue Bumex 4 mg twice a day -- Renvela 800 mg 3 times a day with meals -- considering recent possible transfusion reaction with PRBC and slight drop in Hb, recommend repeating in the afternoon.. Will give ROMMEL. Admission and Anticipated Discharge Date Admission Date: September 26, 2024 Subjective Gene was seen and evaluated this morning. He reports generally feeling well, denies SOB, CP. Had PD overnight but had minimum UF <200 ml. Right neck TCAR site hematoma with slight improvement. Hemoglobin dropped to 6.9 this morning compared to 7.0 yesterday. Blood pressure fair,, electrolyte acceptable. Review of Systems Review of Systems: All systems reviewed & are unremarkable except as noted in Subjective Physical Exam Constitutional: WD/WN, vitals as above + ill appearing; no acute distress Eyes: + anicteric sclerae Neck: large hematoma right side Respiratory: Auscultation: lungs clear to auscultation bilaterally Cardiovascular: Rate/Rhythm: regular rate and regular rhythm Heart Sounds: normal S1 and normal S2 Extremities: + AV fistula (left BC AVF with thrill and bruit); no edema Gastrointestinal (Abdomen): PD catheter site with no erythema, discharge, tenderness Skin: no rashes, warm and dry Neurologic: no focal motor deficits Psychiatric: Orientation: alert and oriented x 3 Results & Data Vital Signs (Past 12 Hours) Vital Signs Temp Pulse Pulse Resp BP BP Pulse Ox 10/03/24 07:52 36.7 C 74 16 141/63 H 97 10/03/24 07:39 10/03/24 07:07 69 10/03/24 04:11 36.8 C 70 18 137/79 96 10/03/24 00:00 66 109/50 L 96 10/02/24 23:00 74 10/02/24 22:20 36.6 C 74 18 145/49 H 92 O2 Del Method 10/03/24 07:52 Room Air 10/03/24 07:39 Room Air 10/03/24 07:07 10/03/24 04:11 Room Air 10/03/24 00:00 Room Air 10/02/24 23:00 10/02/24 22:20 Room Air PG Care Time/CCT Total # of Minutes Spent Total Time Spent with Patient: Total time spent is greater than 50% in coordination of care (as documented) at patient's floor/unit and/or counseling patient: Coding Level of Care Code 39806 SUB INP/OBS CARE 235MIN Diagnoses End stage renal disease N18.6 Complex renal cyst N28.1 NSTEMI (non-ST elevated myocardial infarction) I21.4 Vision loss of right eye H54.61 Stroke-like symptoms R29.90 Acute blood loss as cause of postoperative anemia D62 Peritoneal dialysis catheter in place Z99.2 Central artery occlusion of retina H34.10
[2024-10-03] MEDS: EPOETIN ALFA 20,000 UNITS/ML VIAL SQ STA (11:38)
[2024-10-03 12:57] LABS: Hematocrit (blood only) 19.9 % (42.0-52.0); Hemoglobin 6.4 g/dl (14.0-18.0)
[2024-10-03] MEDS: IRON SUCROSE 200 MG in SODIUM CHLORIDE 0.9% 100 ML IV ONE (13:49)
[2024-10-03] MEDS: OPTIRAY 320 100ml IV ONE (16:16)
[2024-10-03] MEDS: ACETAMINOPHEN 325 MG TAB PO PRN (17:05)
--- NOTE | 2024-10-03 17:26 | CT Scan Report ---
CT ABDOMEN and PELVIS with and without INTRAVENOUS CONTRAST HISTORY: Abdominal pain TECHNIQUE: CT abdomen and pelvis with and without contrast. IV CONTRAST: 100 mL of OMNIPAQUE 300 ENTERIC CONTRAST: Not Given COMPARISON: CT abdomen pelvis April 17, 2024 FINDINGS: LOWER CHEST: Cardiomegaly. Coronary and valvular calcifications. LIVER: No focal lesion identified. GALLBLADDER/BILIARY: Cholelithiasis without CT evidence of cholecystitis.. No abnormal biliary dilatation. SPLEEN: Unremarkable. PANCREAS: Unremarkable. ADRENALS: Unremarkable. KIDNEYS: Cortical cysts. No stones or hydronephrosis identified. PERITONEUM/RETROPERITONEUM. Small abdominal pelvic ascites, new from previous examination. There is a dialysis catheter entering the peritoneal cavity from the anterior pelvis with tip in the rectovesical pouch. Very trace quantity of free air suggested over the anterior abdomen. This may be due to the dialysis catheter. No lymphadenopathy by size criteria. No aortic aneurysm. Extensive atherosclerosis with stenoses of the celiac trunk, the SMA, the renal arteries and the JAMISON. The femoral arteries are also stenosed. GASTROINTESTINAL: No obstruction. URINARY BLADDER: Lux catheter in place. Intraluminal air likely relates to current instrumentation. Moderate wall thickening to the urinary bladder. REPRODUCTIVE: Mild prostamegaly BONES: No acute findings. Bilateral hip arthroplasties. Posterior instrumented fusion of the lumbar spine at L3-S1 with decompressive laminectomies. IMPRESSION: No evidence of acute bleed identified in this examination. Specifically, no evidence of retroperitoneal hematoma. No evidence of acute gastrointestinal bleed. Dialysis catheter entering the peritoneal cavity from the anterior pelvis with tip terminating over the rectovesical pouch. Small abdominopelvic ascitic fluid that is new from previous examination. Urinary bladder is decompressed with Lux catheter in place. There is moderate wall thickening to the urinary bladder which could be due to chronic outlet obstruction and/or superimposed cystitis. Very trace quantity of free air suggested over the anterior abdomen. This may be due to the dialysis catheter. Electronically signed by Silverio Shah 10-03-2024 5:26 PM
[2024-10-03] MEDS ORDERED: SODIUM CHLORIDE 0.9% 100 ML IV PRN (17:57)
--- NOTE | 2024-10-03 18:14 | Hospitalist Progress Note ---
Date of Service October 03, 2024 Assessment & Plan (1) Stroke-like symptoms: Plan Per previous hospitalist w/addendum Pt is a 69-year-old male with past medical history significant for end-stage renal disease on peritoneal dialysis, hypertension, hyperlipidemia, history of PE on chronic Coumadin, type 2 diabetes, peripheral vascular disease, CHF who presents with right ocular stroke. Patient was admitted on 08/30/2024 with left eye vision loss, outpatient ophthalmology found to have central artery occlusion and patient was admitted to hospital. Imaging studies showed high-grade stenosis of the bilateral internal and external carotid arteries. 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 stroke protocol with MRI scan, echo Neurochecks Telemetry Neurology consulted, appreciate recs Vascular surgery consulted, appreciate recs 09/26- pt with worsening vision, repeat stat head CT and chest XRAY- no acute change. Holding IV heparin 09/27- to have R TCAR on Tuesday, per Vascular continue brillinta, aspirin and statin 09/28- stable 09/29- stable 09/30- TCAR with vascular in the AM, NPO after midnight 10/01- s/p R TCAR, stable post op, being monitored in the ICU 10/02- stable, cleared for discharge by vascular. Awaiting rehab placement. Continue Brilinta and aspirin. Warfarin still on hold. 10/03 Today had episode of dizziness when up from bed and SBP down to 70s Pt evaluated immediately at the bedside, while lying in bed BP improved to SBP 130s. Pt feeling well while lying in bed, denies any chest pain, shortness of breath, palpitations, denies any significant pain, sweats, dizziness. stat H&H obtained - and down to 6.4 Discussed with vasc. surgeon and medical file clerk, and also with blood bank (as pt had reportedly poss. blood transfusion reaction - per blood bank no cause was found, per chart review pt received IV bumex - felt it was fluid overload reaction) -> ordered CT abd/pelvis scan to eval for bleed fobt ordered Pt - re-assessed and doing well - attempting to blood transfuse again Anemia Hemoglobin 7.7 Hemoglobin 8.5 recently Usually seems to be 9-10 range Will check stool for Hemoccult Iron studies, vitamin B12 folate levels Repeat H/H Holding anticoagulation as above 09/27- pt with attempt at blood transfusion yesterday but it was discontinued when he developed chest tightness and SOB. Hgb 8.1 today, improved from 7.2 on last check. Continue to monitor H/H 09/28-hgb down to 7.6, continue to monitor 09/29- hgb back up to 8.1 10/02- hgb down postop to 7.0. Issues with prior transfusion, will need diuresis before and after with blood transfusion per previous cardiology recs 10/03 BP down w/abulation and Hgb 6.9, on stat repeat Hgb 6.4 - FOBT ordered, CT abd/pelvis ordered. Vascular surgeon contacted and discussed with. attempting for blood transfusion again - discussed w/ blood bank Non-ST elevated VT HTN Troponin 2486 Denies chest pain EKG has some ST depressions in lateral leads Has shortness on exertion Patient has history of PE on Coumadin INR is 1.8 today Follow echo Hold heparin and warfarin at this time On amlodipine, hydralazine, Imdur and Coreg Cardiology consult for further recommendation 09/30- episode of chest pain overnight relived by nitro, appreciate further cardiology recs Complicated bronchitis vs. Possible Pneumonia Acute hypoxic respiratory Failure Chest XRAY from 09/30 noting infection Started on Augmentin BID Pt with occasional need for oxygen May need 2 step before discharge Hyperlipidemia On statin and fenofibrate History of PE Holding anticoagulation as above End-stage renal disease On peritoneal dialysis at home Continue home Bumex Nephrology consulted, appreciate further recs Diabetes Hold glipizide and home Lantus Lantus 5 daily and sliding scale Close monitor BPH On finasteride and Flomax Monitor for urinary retention Depression On Zoloft Diet: HH/Dialysis renal, DM DVT prophylaxis: SCDs, IV heparin on hold. Monitor h and h Dispo: PT/OT for further recs Admission and Anticipated Discharge Date Admission Date: September 26, 2024 Subjective Pt seen in follow up s/p vascular surg. w/ Dr. Scott, and on PD w/ nephrology Today had episode of dizziness when up from bed and SBP down to 70s Pt evaluated immediately at the bedside, while lying in bed BP improved to SBP 130s. Pt feeling well while lying in bed, denies any chest pain, shortness of breath, palpitations, denies any significant pain, sweats, dizziness. stat H&H obtained - and down to 6.4 Discussed with vasc. surgeon and medical file clerk, and also with blood bank (as pt had reportedly poss. blood transfusion reaction - per blood bank no cause was f ound, per chart review pt received IV bumnex - felt it was fluid overload reaction) -> ordered CT abd/pelvis scan to eval for bleed fobt ordered Pt - re-assessed and doing well - attempting to blood transfuse again Review of Systems Review of Systems: All systems reviewed & are unremarkable except as noted in Subjective Physical Exam Physical Exam: General: Alert, oriented. obese M, chronically ill appearing, in NAD HEENT: decreased vision in both eyes, + neck hematoma (post-surgical), ecchymosis CV: RRR Resp: Breath sounds decreased bilaterally, no increased effort of breathing Abdomen: Soft, nontender, obese Extremities: minimal edema in lower extremities bilaterally. Skin: warm dry Results & Data Results & Data Vital Signs (Past 12 Hours) Vital Signs Temp Pulse Pulse Resp BP BP Pulse Ox 10/03/24 16:00 80 10/03/24 14:50 36.6 C 77 17 163/66 H 96 10/03/24 14:19 36.6 C 74 17 162/66 H 96 10/03/24 14:06 36.6 C 76 18 160/66 H 96 10/03/24 14:00 36.6 C 78 17 151/68 H 97 10/03/24 13:51 36.6 C 76 18 165/68 H 95 10/03/24 11:30 36.6 C 72 18 138/74 96 10/03/24 07:52 36.7 C 74 16 10/03/24 07:52 36.7 C 74 16 141/63 H 97 10/03/24 07:39 10/03/24 07:07 69 O2 Del Method 10/03/24 16:00 10/03/24 14:50 Room Air 10/03/24 14:19 Room Air 10/03/24 14:06 Room Air 10/03/24 14:00 Room Air 10/03/24 13:51 Room Air 10/03/24 11:30 Room Air 10/03/24 07:52 10/03/24 07:52 Room Air 10/03/24 07:39 Room Air 10/03/24 07:07 Laboratory Results 10/03/24 10/03/24 10/03/24 Range/Units 16:29 12:43 11:16 WBC (4.8-10.8) K/ul RBC (4.70-6.10) M/uL Hgb 6.4 L* (14.0-18.0) g/dl Hct 19.9 L* (42.0-52.0) % MCV (80.0-100.0) fL MCH (25.0-34.0) pg MCHC (32.0-36.0) g/dL RDW Std Deviation (36.4-46.3) fL RDW Coeff of Severiano (11.5-14.5) % Plt Count (130-400) K/uL MPV (9.4-12.4) fL Immature Gran % (Auto) % Neut % (Auto) % Lymph % (Auto) % [place] % (Auto) % Eos % (Auto) % Baso % (Auto) % Neut # (Auto) (1.40-6.50) K/uL Lymph # (Auto) (1.20-3.40) K/uL [place] # (Auto) (0.11-0.59) K/uL Eos # (Auto) (0.00-0.50) K/uL Baso # (Auto) (0.00-0.20) K/uL Immature Gran # (Auto) (0.01-0.20) K/uL Polychromasia PT (9.0-12.0) Seconds INR (0.9-1.1) Sodium (136-145) mmol/L Potassium (3.5-5.1) mmol/L Chloride (98-107) mmol/L Carbon Dioxide (21-32) mmol/L Anion Gap (3-11) BUN (6-23) mg/dl Creatinine (0.6-1.4) mg/dl Est Cr Clr Drug Dosing ml/min eGFR BUN/Creatinine Ratio (10-20) Glucose (70-99(Fasting)) mg/dl POC Glucose 114 H 212 H (70-99) mg/dl Calcium (8.6-10.3) mg/dl Phosphorus (2.5-4.9) mg/dl Magnesium (1.7-2.4) mg/dl Total Bilirubin (0.2-1.0) mg/dl AST (13-39) U/L ALT (7-52) U/L Alkaline Phosphatase (34-104) U/L Total Protein (6.0-8.3) gm/dl Albumin (3.4-5.0) gm/dl Globulin (2.5-4.0) gm/dl Albumin/Globulin Ratio (0.9-2) Blood Type Antibody Screen Crossmatch 10/03/24 10/03/24 10/03/24 Range/Units 07:22 06:13 00:01 WBC 8.30 (4.8-10.8) K/ul RBC 2.27 L (4.70-6.10) M/uL Hgb 6.9 L* (14.0-18.0) g/dl Hct 21.2 L (42.0-52.0) % MCV 93.4 (80.0-100.0) fL MCH 30.4 (25.0-34.0) pg MCHC 32.5 (32.0-36.0) g/dL RDW Std Deviation 45.7 (36.4-46.3) fL RDW Coeff of Severiano 13.8 (11.5-14.5) % Plt Count 189 (130-400) K/uL MPV 10.2 (9.4-12.4) fL Immature Gran % (Auto) 0.8 % Neut % (Auto) 74.6 % Lymph % (Auto) 13.9 % [place] % (Auto) 8.1 % Eos % (Auto) 2.0 % Baso % (Auto) 0.6 % Neut # (Auto) 6.19 (1.40-6.50) K/uL Lymph # (Auto) 1.15 L (1.20-3.40) K/uL [place] # (Auto) 0.67 H (0.11-0.59) K/uL Eos # (Auto) 0.17 (0.00-0.50) K/uL Baso # (Auto) 0.05 (0.00-0.20) K/uL Immature Gran # (Auto) 0.07 (0.01-0.20) K/uL Polychromasia 1+ PT 11.9 (9.0-12.0) Seconds INR 1.1 (0.9-1.1) Sodium 139 (136-145) mmol/L Potassium 3.5 (3.5-5.1) mmol/L Chloride 99 (98-107) mmol/L Carbon Dioxide 29 (21-32) mmol/L Anion Gap 11 (3-11) BUN 67 H (6-23) mg/dl Creatinine 6.45 H* D (0.6-1.4) mg/dl Est Cr Clr Drug Dosing 12.0 ml/min eGFR 8.65 BUN/Creatinine Ratio 10.4 (10-20) Glucose 183 H (70-99(Fasting)) mg/dl POC Glucose 214 H 253 H (70-99) mg/dl Calcium 8.6 (8.6-10.3) mg/dl Phosphorus 5.7 H (2.5-4.9) mg/dl Magnesium 2.0 (1.7-2.4) mg/dl Total Bilirubin 0.3 (0.2-1.0) mg/dl AST 28 (13-39) U/L ALT < 3 L (7-52) U/L Alkaline Phosphatase 44 (34-104) U/L Total Protein 5.6 L (6.0-8.3) gm/dl Albumin 3.0 L (3.4-5.0) gm/dl Globulin 2.6 (2.5-4.0) gm/dl Albumin/Globulin Ratio 1.2 (0.9-2) Blood Type Antibody Screen Crossmatch 10/02/24 10/01/24 Range/Units 20:32 05:47 WBC (4.8-10.8) K/ul RBC (4.70-6.10) M/uL Hgb (14.0-18.0) g/dl Hct (42.0-52.0) % MCV (80.0-100.0) fL MCH (25.0-34.0) pg MCHC (32.0-36.0) g/dL RDW Std Deviation (36.4-46.3) fL RDW Coeff of Severiano (11.5-14.5) % Plt Count (130-400) K/uL MPV (9.4-12.4) fL Immature Gran % (Auto) % Neut % (Auto) % Lymph % (Auto) % [place] % (Auto) % Eos % (Auto) % Baso % (Auto) % Neut # (Auto) (1.40-6.50) K/uL Lymph # (Auto) (1.20-3.40) K/uL [place] # (Auto) (0.11-0.59) K/uL Eos # (Auto) (0.00-0.50) K/uL Baso # (Auto) (0.00-0.20) K/uL Immature Gran # (Auto) (0.01-0.20) K/uL Polychromasia PT (9.0-12.0) Seconds INR (0.9-1.1) Sodium (136-145) mmol/L Potassium (3.5-5.1) mmol/L Chloride (98-107) mmol/L Carbon Dioxide (21-32) mmol/L Anion Gap (3-11) BUN (6-23) mg/dl Creatinine (0.6-1.4) mg/dl Est Cr Clr Drug Dosing ml/min eGFR BUN/Creatinine Ratio (10-20) Glucose (70-99(Fasting)) mg/dl POC Glucose 239 H (70-99) mg/dl Calcium (8.6-10.3) mg/dl Phosphorus (2.5-4.9) mg/dl Magnesium (1.7-2.4) mg/dl Total Bilirubin (0.2-1.0) mg/dl AST (13-39) U/L ALT (7-52) U/L Alkaline Phosphatase (34-104) U/L Total Protein (6.0-8.3) gm/dl Albumin (3.4-5.0) gm/dl Globulin (2.5-4.0) gm/dl Albumin/Globulin Ratio (0.9-2) Blood Type Pending Antibody Screen Pending Crossmatch See Detail Medications Administered Current Inpatient Medications Acetaminophen (Acetaminophen 325 Mg Tab) 650 mg PO Q4H PRN PRN Reason: Pain or Fever Stop: 10/26/24 02:58 Last Admin: 10/03/24 17:05 Dose: 650 mg Amlodipine Besylate (Amlodipine Besylate 5 Mg Tab) 5 mg PO BID [facility] Stop: 10/26/24 08:59 Last Admin: 10/03/24 08:26 Dose: 5 mg Amoxicillin/Clavulanate Potassium (Amoxicillin/Clavulanate 500 Mg Tab) 1 tab PO BIDM [facility]; Protocol Stop: 10/05/24 16:59 Last Admin: 10/03/24 17:06 Dose: 1 tab Aspirin (Aspirin 81 Mg Ectab) 81 mg PO PM JAKOB Stop: 10/26/24 20:59 Last Admin: 10/02/24 21:32 Dose: 81 mg Bumetanide (Bumetanide 1 Mg Tab) 4 mg PO [id number] JAKOB Stop: 10/26/24 08:59 Last Admin: 10/03/24 17:06 Dose: 4 mg Carvedilol (Carvedilol 25 Mg Tab) 25 mg PO BID JAKOB Stop: 10/30/24 20:59 Last Admin: 10/03/24 08:26 Dose: 25 mg Dextrose (Dextrose 50% 50 Ml Syringe) 25 - 50 ml IV UD PRN; Protocol PRN Reason: Hypoglycemia Protocol Stop: 10/26/24 02:58 Fenofibrate (Fenofibrate Patient's Own) 1 each PO PM [facility] Stop: 10/27/24 20:59 Last Admin: 10/02/24 21:38 Dose: 1 each Finasteride (Finasteride 5 Mg Tab) 5 mg PO QAM [facility] Stop: 10/26/24 08:59 Last Admin: 10/03/24 08:26 Dose: 5 mg Gabapentin (Gabapentin 100 Mg Cap) 100 mg PO TID JAKOB Stop: 10/26/24 08:59 Last Admin: 10/03/24 13:59 Dose: 100 mg Gentamicin Sulfate (Gentamicin Sulfate 0.1% Cr 15 Gm Tube) 1 appln EXT DAILY JAKOB Stop: 10/07/24 15:59 Last Admin: 10/03/24 08:25 Dose: Not Given Glucagon (Glucagon For Inj 1 Mg Vial) 1 mg SQ UD PRN; Protocol PRN Reason: Hypoglycemia Protocol Stop: 10/26/24 02:58 Glucose (Glucose 40% Gel 15 Gm Tube) 15 - 30 gm PO UD PRN; Protocol PRN Reason: Hypoglycemia Protocol Stop: 10/26/24 02:58 Glucose (Glucose 10 Tab/Tube) 4 - 8 tab PO UD PRN; Protocol PRN Reason: Hypoglycemia Protocol Stop: 10/26/24 02:58 Hydralazine HCl (Hydralazine Tab 50 Mg Tab) 100 mg PO TID [facility] Stop: 10/26/24 08:59 Last Admin: 10/03/24 12:34 Dose: Not Given Promethazine HCl (Phenergan) 6.25 mg in 50.25 mls @ 201 mls/hr IV Q6H PRN PRN Reason: Nausea And Vomiting Stop: 10/30/24 23:21 Last Infusion: 10/02/24 17:26 Dose: Infused Sodium Chloride (Nss) 100 mls @ 15 mls/hr IV .Q6H40M PRN PRN Reason: For Transfusion Duration Stop: 10/04/24 01:57 Insulin Aspart (Insulin Aspart Per Unit Charge) 0 units SC ACHS [facility] Stop: 10/29/24 20:59 Last Admin: 10/03/24 17:05 Dose: 5 units Insulin Glargine (Lantus Per Unit Charge) 12 units SC DAILY [facility] Stop: 11/02/24 08:59 Last Admin: 10/03/24 08:36 Dose: 12 units Insulin Human NPH (Insulin Human Nph) 10 units SC HS [facility] Stop: 11/01/24 20:59 Last Admin: 10/02/24 21:17 Dose: 10 units Iodixanol (Visipaque) 100 ml IV UD PRN PRN Reason: Radiology Use Stop: 10/05/24 09:29 Last Admin: 10/01/24 09:50 Dose: 15 ml Isosorbide Mononitrate (Isosorbide [place] Extended Rel 60 Mg Tabcr) 60 mg PO QAM [facility] Stop: 10/26/24 08:59 Last Admin: 10/03/24 08:26 Dose: 60 mg Miscellaneous (Carbohydrates For Hypoglycemia ) 15 - 30 gm PO UD PRN PRN Reason: Hypoglycemia Protocol Stop: 10/26/24 02:58 Miscellaneous Information (Pharmacist Discharge Med Rec Consult) 1 each N/A UD PRN PRN Reason: Consult Stop: 10/26/24 02:58 Miscellaneous Information (Pharmacy Glycemic Mgmt Consult) 1 each N/A UD PRN; Protocol PRN Reason: Consult Stop: 10/31/24 12:47 Nitroglycerin (Nitroglycerin Sl 0.4 Mg/Tab Tab) 0.4 mg SL Q5M PRN PRN Reason: Chest Pain Stop: 10/26/24 02:58 Oxycodone/Acetaminophen (Oxycodone/Acetaminophen 5mg/325mg Tab) 1 - 2 tab PO Q4H PRN PRN Reason: Pain (Scale 3,4,5,6) Stop: 10/15/24 12:47 Last Admin: 10/01/24 19:46 Dose: 2 tab Polyethylene Glycol (Polyethylene (Miralax) 17 Gm Pack) 17 gm PO DAILY PRN PRN Reason: Constipation Stop: 10/26/24 02:58 Last Admin: 09/28/24 08:54 Dose: 17 gm Polyethylene Glycol (Polyethylene (Miralax) 17 Gm Pack) 17 gm PO Q48H [facility]AKOB Stop: 10/26/24 08:59 Last Admin: 10/02/24 09:15 Dose: 17 gm Rosuvastatin Calcium (Rosuvastatin Calcium 20 Mg Tab) 20 mg PO QAM [facility] Stop: 10/26/24 08:59 Last Admin: 10/03/24 08:26 Dose: 20 mg Sertraline HCl (Sertraline Hcl 100 Mg Tablet) 100 mg PO PM JAKOB Stop: 10/26/24 20:59 Last Admin: 10/02/24 21:34 Dose: 100 mg Sertraline HCl (Sertraline Hcl 50 Mg Tablet) 50 mg PO PM JAKOB Stop: 10/26/24 20:59 Last Admin: 10/02/24 21:34 Dose: 50 mg Sevelamer Carbonate (Sevelamer Carbonate 800 Mg Tab) 800 mg PO TIDM [facility] Stop: 10/26/24 07:59 Last Admin: 10/03/24 17:06 Dose: 800 mg Tamsulosin HCl (Tamsulosin Hcl 0.4 Mg Cap) 0.4 mg PO QAM [facility] Stop: 10/26/24 08:59 Last Admin: 10/03/24 08:26 Dose: 0.4 mg Ticagrelor (Ticagrelor 90 Mg Tab) 90 mg PO BID [facility]AKOB Stop: 10/26/24 08:59 Last Admin: 10/03/24 08:27 Dose: 90 mg
[2024-10-03] MEDS: diphenhydrAMINE Capsule 25 MG CAP PO PRN (20:20)
[2024-10-03] MEDS: BUMETANIDE 2 MG in SYRINGE 0 ML IV ONE (22:30)
[2024-10-04 00:02] LABS: INR 1.1 (0.9-1.1); Partial Thromboplastin Ratio 1.1; Partial Thromboplastin Time 30 Seconds (21-31); Prothrombin Time 11.6 Seconds (9.0-12.0)
[2024-10-04 00:14] LABS: D Dimer 1930 ug/L FEU (0-500)
--- NOTE | 2024-10-04 00:48 | XRay Report ---
Exam(s): XR CXR 1 VIEW EXAM: XR Chest, 1 View CLINICAL HISTORY: Reason for exam: sob. TECHNIQUE: Frontal view of the chest. COMPARISON: Prior chest x-ray from September 29, 2024. FINDINGS: Lungs: Mild to moderate peribronchial thickening of the central and lower lobe bronchi. Low lung volumes, limiting evaluation of the lung bases. No consolidation. Pleural space: Unremarkable. No pneumothorax. Heart: Unremarkable. No cardiomegaly. Mediastinum: Unremarkable. Normal mediastinal contour. Bones/joints: Unremarkable. No acute fracture. IMPRESSION: Bronchitis, which may be of infectious or inflammatory etiologies. No consolidation or pleural effusion. Electronically signed by: Helena Martinez MD 10/04/24 00:47 AM
[2024-10-04 06:58] LABS: Hematocrit (blood only) 21.8 % (42.0-52.0); Hemoglobin 7.2 g/dl (14.0-18.0); Mean Corpuscular Hemoglobin 30.8 pg (25.0-34.0); Mean Corpuscular Volume 93.2 fL (80.0-100.0); Mean Platelet Volume 10.2 fL (9.4-12.4); Nucleated RBC # (auto) 0.02 K/uL (0.00-0.12); Nucleated RBC % (auto) 0.3 %; Platelet Count 179 K/uL (130-400); RDW Coefficient of Variation 14.1 % (11.5-14.5); RDW Standard Deviation 46.1 fL (36.4-46.3); Red Blood Count 2.34 M/uL (4.70-6.10); White Blood Count 7.11 K/ul (4.8-10.8)
[2024-10-04 07:13] LABS: BUN Creatinine Ratio 10.6 (10-20); Calcium 8.5 mg/dl (8.6-10.3); Creatinine Clr Calc Pharmacy 12.5 ml/min; Phosphorus 5.3 mg/dl (2.5-4.9); Potassium 3.5 mmol/L (3.5-5.1)
--- NOTE | 2024-10-04 09:46 | Nephrology Progress Note ---
Date of Service October 04, 2024 Assessment & Plan (1) End stage renal disease: (2) Complex renal cyst: (3) NSTEMI (non-ST elevated myocardial infarction): (4) Vision loss of right eye: (5) Stroke-like symptoms: (6) Acute blood loss as cause of postoperative anemia: (7) Peritoneal dialysis catheter in place: (8) Central artery occlusion of retina: Plan 69-year-old gentleman with past medical history significant for end-stage kidney disease on peritoneal dialysis since May 2024, diabetes, peripheral vascular disease, prior history of GBS admitted to the hospital on 09/26/2023 with strokelike symptoms and found to have right-sided vision loss with carotid occlusion. He recently had left-sided vision loss with occlusion of central retinal artery. Workup at that time showed bilateral significant carotid artery stenosis and he had left-sided TCAR on 09/19/2024. He saw his anthropological linguist on 09/25/2024 when he was found to have right-sided vision loss and right retinal artery occlusion and he was sent to ER for admission and further evaluation. He was also noted to have non-STEMI with elevated troponin, seen by cardiology but thought to be high risk for any intervention at this time and continued on medical management. Hemoglobin was noted to be low at 7.3 after some blood loss and hematoma post TCAR on 09/19/24. Hemoglobin improved after blood transfusion. Had right TCAR on 10/01/24. Has been getting peritoneal dialysis as per his out patient's schedule, has been tolerating well and having decent ultrafiltration. Blood pressure has been variable and recent orthostatic hypotension. Volume status acceptable. Electrolyte acceptable. Hb slightly improved to 7.4, could not complete PRBC last night due to SOB and concern for reaction. Recent T sat 25 % -- continue CCPD tonight 4 exchanges, 2 L fill volume, 2.5% Delflex, Fill 10 minutes/dwell 90 minutes/drain 20 minutes, EDW 95 kg -- decrease Hydralazine to 50 mg TID -- Dose medications for eGFR less than 10 -- Continue Bumex 4 mg twice a day -- Renvela 800 mg 3 times a day with meals -- recommend repeating in the afternoon -- Physical therapy Admission and Anticipated Discharge Date Admission Date: September 26, 2024 Subjective Gene was seen and evaluated this morning. He reports overall feeling poorly, feels weak in his legs, BP drops when he sits or stands up. But denies SOB, CP. Had PD overnight, had UF 1300 ml. Right neck TCAR site hematoma with slight improvement. Hemoglobin slightly improved to 7.4 this morning. Blood pressure fair,, electrolyte acceptable. Review of Systems Review of Systems: All systems reviewed & are unremarkable except as noted in Subjective Physical Exam Constitutional: WD/WN, vitals as above + ill appearing; no acute distress Eyes: + anicteric sclerae Neck: large hematoma right side Respiratory: Auscultation: lungs clear to auscultation bilaterally Cardiovascular: Rate/Rhythm: regular rate and regular rhythm Heart Sounds: normal S1 and normal S2 Extremities: + AV fistula (left BC AVF with thrill and bruit); no edema Gastrointestinal (Abdomen): PD catheter site with no erythema, discharge, tenderness Skin: no rashes, warm and dry Neurologic: no focal motor deficits Psychiatric: Orientation: alert and oriented x 3 Results & Data Vital Signs (Past 12 Hours) Vital Signs Temp Pulse Pulse Resp BP BP Pulse Ox 10/04/24 08:07 36.6 C 67 18 10/04/24 08:03 61 10/04/24 07:35 36.6 C 67 18 163/74 H 94 10/04/24 03:02 36.5 C 69 16 141/61 H 91 10/04/24 00:00 66 10/03/24 21:55 36.4 C L 68 22 129/87 94 O2 Del Method 10/04/24 08:07 10/04/24 08:03 10/04/24 07:35 Room Air 10/04/24 03:02 Room Air 10/04/24 00:00 10/03/24 21:55 PG Care Time/CCT Total # of Minutes Spent Total Time Spent with Patient: Total time spent is greater than 50% in coordination of care (as documented) at patient's floor/unit and/or counseling patient: Coding Level of Care Code 50946 SUB INP/OBS CARE 235MIN Diagnoses End stage renal disease N18.6 Complex renal cyst N28.1 NSTEMI (non-ST elevated myocardial infarction) I21.4 Vision loss of right eye H54.61 Stroke-like symptoms R29.90 Acute blood loss as cause of postoperative anemia D62 Peritoneal dialysis catheter in place Z99.2 Central artery occlusion of retina H34.10
--- NOTE | 2024-10-04 10:04 | Ultrasound Report ---
BILATERAL LOWER EXTREMITY VENOUS DOPPLER HISTORY: Acutely elevated d-dimer elevated d dimer. dvt? COMPARISON STUDY: None. FINDINGS: There is normal compressibility, flow, and augmentation within the bilateral lower extremit y deep venous systems. IMPRESSION: No DVT within the right or left lower extremity. ACT 112: Negative or not required by law. Electronically signed by: Alan Chaudhary M.D. 10/04/2024 10:03 AM
--- NOTE | 2024-10-04 11:36 | Pharmacy Report ---
Pharmacy Glycemic Short Note 2 - Date of Service October 04, 2024 - Glycemic Short BSG Results (Last 24 hours): 10/03/24 10/03/24 10/04/24 16:29 19:55 06:03 Glucose 188 H POC Glucose 114 H 237 H 10/04/24 10/04/24 07:34 10:46 Glucose POC Glucose 231 H 247 H OUTPATIENT ANTIDIABETIC REGIMEN: * glipizide 10mg PO daily * Novolog 3units SQ BID * Lantus 12 units SQ HS HbA1C: 7.7 (09/26)- PD ASSESSMENT: 10/04 * Patient received a total of 56 units of insulin yesterday (22 units were basal-12units Lantus, 10 units NPH- and 34 units were bolus). Although the amount of daily insulin has increased, BSGs were still mostly above goal. * Fasting BSG was 231mg/dL this morning. Lantus dose was increased yesterday so will not increase again yet. Will increase dose of NPH that is given with PD exchanges starting tonight. If this does not appear to help control the BSGs through the evening/AM, will consider using Lantus in the evening instead of the NPH. 10/02 * AM glucose 232 mg/dL. Will trial NPH tonight with PD exchanges. Continue with 10 units of lantus in the AM * Correction factor and carb ratio tightened- lunch BSG within goal range. Will monitor 10/01 * Pt is a 69 YOM admitted on 09/26 with a right ocular stroke. Now POD #0 R TCAR. History of DM2 on multiple anti-hyperglycemic agents at home as well as ESRD on peritoneal dialysis. Pharmacy consulted to assist with inpatient glycemic management. * BSGs elevated the last 24h: [phone]/dL. Received 10 units of basal and 22 units of bolus insulin yesterday. * No insulin administered this AM prior to surgery. Plan for 10 units of Lantus X 1 dose this afternoon + HS scale depending on BSG. Fasting BSGs have been above goal. Novolog tightened. PLAN FOR INPATIENT GLYCEMIC CONTROL: * Hold outpatient oral diabetes medications * Basal insulin * Lantus 12 units SQ qAM. NPH 15 units HS * Bolus insulin * NovoLog per scale ACHS or Q6hrs while NPO * Goal Range: Low 110 mg/dL - High 140 mg/dL * Correction Factor: 15 mg/dL/unit * Nutritional / Prandial insulin per carb ratio of 1 unit per 8 grams CHO consumed
--- NOTE | 2024-10-04 11:53 | Nuclear Medicine Report ---
NM pul perfusion HISTORY: 69 years-old Male PE? Acute shortness of breath COMPARISON: Duplex venous Doppler study of same day, chest radiograph 10/03/2024 TECHNIQUE: Nuclear medicine study was obtained following the intravenous administration of 5.6 mCi te chnetium 99 MAA FINDINGS: Comparison chest radiograph demonstrates cardiomegaly with mild interstitial pulmonary edema and trac e pleural effusions. No large segmental perfusion defects. IMPRESSION: Low probability for pulmonary embolus. ACT 112: Negative or not required by law. The above report was generated using voice recognition software. It may contain grammatical, syntax o r spelling errors. Electronically signed by: Alan Chaudhary M.D. 10/04/2024 11:51 AM
[2024-10-04] MEDS: hydrALAZINE TAB 50 MG TAB PO SCH (14:10)
--- NOTE | 2024-10-04 15:27 | Surgery Progress Note ---
Date of Service October 04, 2024 Assessment & Plan (1) S/P vascular surgery: Plan: Doing well post TCAR. Admission and Anticipated Discharge Date Admission Date: September 26, 2024 Subjective Patient feeling better today. He does not have any complaints of focal neurodeficits. Physical Exam Constitutional: WD/WN, vitals as above Neck: trachea midline Respiratory: normal respiratory effort; no respiratory distress Skin: + incision (hematoma of the incision, so ft) Neurologic: CN's II-XI intact bilaterally, normal sensation to monofilament and moves all extremities Psychiatric: A+Ox3, euthymic affect Results & Data Vital Signs (Past 12 Hours) Vital Signs Temp Pulse Pulse Resp BP Pulse Ox O2 Del Method 10/04/24 14:53 66 10/04/24 10:46 36.2 C L 63 18 135/71 96 Room Air 10/04/24 08:07 36.6 C 67 18 10/04/24 08:03 61 10/04/24 07:35 36.6 C 67 18 163/74 H 94 Room Air
--- NOTE | 2024-10-04 17:10 | Hospitalist Progress Note ---
Date of Service October 04, 2024 Assessment & Plan (1) Stroke-like symptoms: Plan Per previous hospitalist w/addendum Pt is a 69-year-old male with past medical history significant for end-stage renal disease on peritoneal dialysis, hypertension, hyperlipidemia, history of PE on chronic Coumadin, type 2 diabetes, peripheral vascular disease, CHF who presents with right ocular stroke. Patient was admitted on 08/30/2024 with left eye vision loss, outpatient ophthalmology found to have central artery occlusion and patient was admitted to hospital. Imaging studies showed high-grade stenosis of the bilateral internal and external carotid arteries. 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 stroke protocol with MRI scan, echo Neurochecks Telemetry Neurology consulted, appreciate recs Vascular surgery consulted, appreciate recs 09/26- pt with worsening vision, repeat stat head CT and chest XRAY- no acute change. Holding IV heparin 09/27- to have R TCAR on Tuesday, per Vascular continue brillinta, aspirin and statin 09/28- stable 09/29- stable 09/30- TCAR with vascular in the AM, NPO after midnight 10/01- s/p R TCAR, stable post op, being monitored in the ICU 10/02- stable, cleared for discharge by vascular. Awaiting rehab placement. Continue Brilinta and aspirin. Warfarin still on hold. 10/03 Today had episode of dizziness when up from bed and SBP down to 70s Pt evaluated immediately at the bedside, while lying in bed BP improved to SBP 130s. Pt feeling well while lying in bed, denies any chest pain, shortness of breath, palpitations, denies any significant pain, sweats, dizziness. stat H&H obtained - and down to 6.4 Discussed with vasc. surgeon and kitchen and counter worker, and also with blood bank (as pt had reportedly poss. blood transfusion reaction - per blood bank no cause was found, per chart review pt received IV bumex - felt it was fluid overload reaction) -> ordered CT abd/pelvis scan to eval for bleed -> bleed ruled out, see below IMPRESSION: No evidence of acute bleed identified in this examination. Specifically, no evidence of retroperitoneal hematoma. No evidence of acute gastrointestinal bleed. Dialysis catheter entering the peritoneal cavity from the anterior pelvis with tip terminating over the rectovesical pouch. Small abdominopelvic ascitic fluid that is new from previous examination. Urinary bladder is decompressed with Lux catheter in place. There is moderate wall thickening to the urinary bladder which could be due to chronic outlet obstruction and/or superimposed cystitis. Very trace quantity of free air suggested over the anterior abdomen. This may be due to the dialysis catheter. FOBT - negative Attempted to blood transfuse again - pt unfortunately had reaction again - CXR obtained, doppler ordered, V/Q scan Anemia Hemoglobin 7.7 Hemoglobin 8.5 recently Usually seems to be 9-10 range Will check stool for Hemoccult Iron studies, vitamin B12 folate levels Repeat H/H Holding anticoagulation as above 09/27- pt with attempt at blood transfusion yesterday but it was discontinued when he developed chest tightness and SOB. Hgb 8.1 today, improved from 7.2 on last check. Continue to monitor H/H 09/28-hgb down to 7.6, continue to monitor 09/29- hgb back up to 8.1 10/02- hgb down postop to 7.0. Issues with prior transfusion, will need diuresis before and after with blood transfusion per previous cardiology recs 10/03 BP down w/abulation and Hgb 6.9, on stat repeat Hgb 6.4 - FOBT ordered, CT abd/pelvis ordered. Vascular surgeon contacted and discussed with. attempting for blood transfusion again - discussed w/ blood bank 10/04 Hgb 7.2 (pt was not bale to finish blood transfusion, had reaction again as above) Non-ST elevated ND HTN Troponin 2486 Denies chest pain EKG has some ST depressions in lateral leads Has shortness on exertion Patient has history of PE on Coumadin INR is 1.8 today Follow echo Hold heparin and warfarin at this time On amlodipine, hydralazine, Imdur and Coreg Cardiology consult for further recommendation 09/30- episode of chest pain overnight relived by nitro, appreciate further cardiology recs Complicated bronchitis vs. Possible Pneumonia Acute hypoxic respiratory Failure Chest XRAY from 09/30 noting infection Started on Augmentin BID Pt with occasional need for oxygen May need 2 step before discharge Hyperlipidemia On statin and fenofibrate History of PE Holding anticoagulation as above End-stage renal disease On peritoneal dialysis at home Continue home Bumex Nephrology consulted, appreciate further recs Diabetes Hold glipizide and home Lantus Lantus 5 daily and sliding scale Close monitor BPH On finasteride and Flomax Monitor for urinary retention Depression On Zoloft Diet: HH/Dialysis renal, DM DVT prophylaxis: SCDs, IV heparin on hold. Monitor h and h Dispo: PT/OT for further recs Admission and Anticipated Discharge Date Admission Date: September 26, 2024 Subjective Pt seen in follow up s/p vascular surg. w/ Dr. Scott, and on PD w/ nephrology 10/03 - pt had episode of dizziness when up from bed and SBP down to 70s. stat H&H obtained - and down to 6.4 Discussed with vasc. surgeon and kitchen and counter worker, and also with blood bank (as pt had reportedly poss. blood transfusion reaction - per blood bank no cause was found, per chart review pt received IV bumnex - felt it was fluid overload reaction) -> ordered CT abd/pelvis scan to eval for bleed - bleed ruled out fobt ordered Tried to blood transfuse again - pt again developed reaction - complained of shortness of breath, chest pain 10/04 Hgb 7.2 Pt is feeling well. Denies any issues, no chest pain, shortness of breath, dizziness, pt has been out of bed several times as well Review of Systems Review of Systems: All systems reviewed & are unremarkable except as noted in Subjective Physical Exam Physical Exam: General: Alert, oriented. obese M, chronically ill appearing, in NAD HEENT: decreased vision in both eyes, + neck hematoma (post-surgical), ecchymosis CV: RRR Resp: Breath sounds decreased bilaterally, no increased effort of breathing Abdomen: Soft, nontender, obese Extremities: minimal edema in lower extremities bilaterally. Skin: warm dry Results & Data Results & Data Vital Signs (Past 12 Hours) Vital Signs Temp Pulse Pulse Resp BP Pulse Ox O2 Del Method 10/04/24 14:53 66 10/04/24 10:46 36.2 C L 63 18 135/71 96 Room Air 10/04/24 08:07 36.6 C 67 18 10/04/24 08:03 61 10/04/24 07:35 36.6 C 67 18 163/74 H 94 Room Air Laboratory Results 10/04/24 10/04/24 10/04/24 Range/Units 16:03 10:46 07:34 WBC (4.8-10.8) K/ul RBC (4.70-6.10) M/uL Hgb (14.0-18.0) g/dl Hct (42.0-52.0) % MCV (80.0-100.0) fL MCH (25.0-34.0) pg MCHC (32.0-36.0) g/dL RDW Std Deviation (36.4-46.3) fL RDW Coeff of Severiano (11.5-14.5) % Plt Count (130-400) K/uL MPV (9.4-12.4) fL Absolute Nucleated RBC (0.00-0.12) K/uL Nucleated RBC % (auto) % PT (9.0-12.0) Seconds INR (0.9-1.1) APTT (21-31) Seconds PTT Ratio D-Dimer (0-500) ug/L FEU Sodium (136-145) mmol/L Potassium (3.5-5.1) mmol/L Chloride (98-107) mmol/L Carbon Dioxide (21-32) mmol/L Anion Gap (3-11) BUN (6-23) mg/dl Creatinine (0.6-1.4) mg/dl Est Cr Clr Drug Dosing ml/min eGFR BUN/Creatinine Ratio (10-20) Glucose (70-99(Fasting)) mg/dl POC Glucose 79 247 H 231 H (70-99) mg/dl Calcium (8.6-10.3) mg/dl Phosphorus (2.5-4.9) mg/dl Magnesium (1.7-2.4) mg/dl Lactate Dehydrogenase (86-244) U/L Albumin (3.4-5.0) gm/dl Blood Type Antibody Screen Direct Antiglob Test SADIE (IgG-AHG) SADIE, Polyspecific SADIE C3b, C3d 5 Min Crossmatch Transfusion React Date Transfusion React Time Tx React Symptoms Reaction Clerical Check Lab Clerical Err Check React Component Return Volume Returned Pre-Trans Blood Type Pre-Trans Vis Hemolysis Pre-Trans SADIE (Negative) Pre-Trans SADIE IgG (Negative) Pre-Trans SADIE Poly (Negative) Pre-Trans SADIE C3b, C3d (Negative) Post-Trans Blood Type Post-Tx Visible Hemolys Post-Trans SADIE (Negatuve) Post-Trans SADIE IgG (Negative) Post-Trans SADIE Poly (Negative) Post-Trans SADIE C3b, C3d (Negative) Post-Trans Ur Hemoglobin Reaction Path Interpret Transfusion Serv Com 10/04/24 10/03/24 10/03/24 Range/Units 06:03 22:43 19:55 WBC 7.11 (4.8-10.8) K/ul RBC 2.34 L (4.70-6.10) M/uL Hgb 7.2 L (14.0-18.0) g/dl Hct 21.8 L (42.0-52.0) % MCV 93.2 (80.0-100.0) fL MCH 30.8 (25.0-34.0) pg MCHC 33.0 (32.0-36.0) g/dL RDW Std Deviation 46.1 (36.4-46.3) fL RDW Coeff of Severiano 14.1 (11.5-14.5) % Plt Count 179 (130-400) K/uL MPV 10.2 (9.4-12.4) fL Absolute Nucleated RBC 0.02 (0.00-0.12) K/uL Nucleated RBC % (auto) 0.3 % PT 11.6 (9.0-12.0) Seconds INR 1.1 (0.9-1.1) APTT 30 (21-31) Seconds PTT Ratio 1.1 D-Dimer 1930 H* (0-500) ug/L FEU Sodium 137 (136-145) mmol/L Potassium 3.5 (3.5-5.1) mmol/L Chloride 97 L (98-107) mmol/L Carbon Dioxide 32 (21-32) mmol/L Anion Gap 8 (3-11) BUN 65 H (6-23) mg/dl Creatinine 6.14 H* D (0.6-1.4) mg/dl Est Cr Clr Drug Dosing 12.5 ml/min eGFR 9.17 BUN/Creatinine Ratio 10.6 (10-20) Glucose 188 H (70-99(Fasting)) mg/dl POC Glucose 237 H (70-99) mg/dl Calcium 8.5 L (8.6-10.3) mg/dl Phosphorus 5.3 H (2.5-4.9) mg/dl Magnesium 2.0 (1.7-2.4) mg/dl Lactate Dehydrogenase 185 (86-244) U/L Albumin 3.0 L (3.4-5.0) gm/dl Blood Type Antibody Screen Direct Antiglob Test Cancelled SADIE (IgG-AHG) Cancelled SADIE, Polyspecific Cancelled SADIE C3b, C3d 5 Min Cancelled Crossmatch Transfusion React Date Transfusion React Time 2208 Tx React Symptoms INCREASED BP Reaction Clerical Check None Found Lab Clerical Err Check None Found React Component Return PCLR Volume Returned APPROX 200ML Pre-Trans Blood Type A POSITIVE Pre-Trans Vis Hemolysis No Pre-Trans SADIE Negative (Negative) Pre-Trans SADIE IgG Neg (Negative) Pre-Trans SADIE Poly Neg (Negative) Pre-Trans SADIE C3b, C3d Neg (Negative) Post-Trans Blood Type A POSITIVE Post-Tx Visible Hemolys No Post-Trans SADIE Negative (Negatuve) Post-Trans SADIE IgG Neg (Negative) Post-Trans SADIE Poly Neg (Negative) Post-Trans SADIE C3b, C3d Neg (Negative) Post-Trans Ur Hemoglobin Reaction Path Interpret Transfusion Serv Com Pending 10/01/24 Range/Units 05:47 WBC (4.8-10.8) K/ul RBC (4.70-6.10) M/uL Hgb (14.0-18.0) g/dl Hct (42.0-52.0) % MCV (80.0-100.0) fL MCH (25.0-34.0) pg MCHC (32.0-36.0) g/dL RDW Std Deviation (36.4-46.3) fL RDW Coeff of Severiano (11.5-14.5) % Plt Count (130-400) K/uL MPV (9.4-12.4) fL Absolute Nucleated RBC (0.00-0.12) K/uL Nucleated RBC % (auto) % PT (9.0-12.0) Seconds INR (0.9-1.1) APTT (21-31) Seconds PTT Ratio D-Dimer (0-500) ug/L FEU Sodium (136-145) mmol/L Potassium (3.5-5.1) mmol/L Chloride (98-107) mmol/L Carbon Dioxide (21-32) mmol/L Anion Gap (3-11) BUN (6-23) mg/dl Creatinine (0.6-1.4) mg/dl Est Cr Clr Drug Dosing ml/min eGFR BUN/Creatinine Ratio (10-20) Glucose (70-99(Fasting)) mg/dl POC Glucose (70-99) mg/dl Calcium (8.6-10.3) mg/dl Phosphorus (2.5-4.9) mg/dl Magnesium (1.7-2.4) mg/dl Lactate Dehydrogenase (86-244) U/L Albumin (3.4-5.0) gm/dl Blood Type A Positive Antibody Screen NEGATIVE Direct Antiglob Test SADIE (IgG-AHG) SADIE, Polyspecific SADIE C3b, C3d 5 Min Crossmatch See Detail Transfusion React Date Transfusion React Time Tx React Symptoms Reaction Clerical Check Lab Clerical Err Check React Component Return Volume Returned Pre-Trans Blood Type Pre-Trans Vis Hemolysis Pre-Trans SADIE (Negative) Pre-Trans SADIE IgG (Negative) Pre-Trans SADIE Poly (Negative) Pre-Trans SADIE C3b, C3d (Negative) Post-Trans Blood Type Post-Tx Visible Hemolys Post-Trans SADIE (Negatuve) Post-Trans SADIE IgG (Negative) Post-Trans SADIE Poly (Negative) Post-Trans SADIE C3b, C3d (Negative) Post-Trans Ur Hemoglobin Reaction Path Interpret Transfusion Serv Com Medications Administered Current Inpatient Medications Acetaminophen (Acetaminophen 325 Mg Tab) 650 mg PO Q4H PRN PRN Reason: Pain or Fever Stop: 10/26/24 02:58 Last Admin: 10/03/24 20:20 Dose: 650 mg Amlodipine Besylate (Amlodipine Besylate 5 Mg Tab) 5 mg PO BID [facility] Stop: 10/26/24 08:59 Last Admin: 10/04/24 08:34 Dose: 5 mg Amoxicillin/Clavulanate Potassium (Amoxicillin/Clavulanate 500 Mg Tab) 1 tab PO BIDM [facility]; Protocol Stop: 10/05/24 16:59 Last Admin: 10/04/24 08:33 Dose: 1 tab Aspirin (Aspirin 81 Mg Ectab) 81 mg PO PM [facility] Stop: 10/26/24 20:59 Last Admin: 10/03/24 20:15 Dose: 81 mg Bumetanide (Bumetanide 1 Mg Tab) 4 mg PO [id number] JAKOB Stop: 10/26/24 08:59 Last Admin: 10/04/24 08:35 Dose: 4 mg Carvedilol (Carvedilol 25 Mg Tab) 25 mg PO BID JAKOB Stop: 10/30/24 20:59 Last Admin: 10/04/24 08:35 Dose: 25 mg Dextrose (Dextrose 50% 50 Ml Syringe) 25 - 50 ml IV UD PRN; Protocol PRN Reason: Hypoglycemia Protocol Stop: 10/26/24 02:58 Diphenhydramine HCl (Diphenhydramine Capsule 25 Mg Cap) 25 mg PO ONE PRN PRN Reason: before transfusion Stop: 11/02/24 18:28 Last Admin: 10/03/24 20:20 Dose: 25 mg Fenofibrate (Fenofibrate Patient's Own) 1 each PO PM JAKOB Stop: 10/27/24 20:59 Last Admin: 10/03/24 22:22 Dose: 1 each Finasteride (Finasteride 5 Mg Tab) 5 mg PO QAM JAKOB Stop: 10/26/24 08:59 Last Admin: 10/04/24 08:37 Dose: 5 mg Gabapentin (Gabapentin 100 Mg Cap) 100 mg PO TID JAKOB Stop: 10/26/24 08:59 Last Admin: 10/04/24 14:10 Dose: 100 mg Gentamicin Sulfate (Gentamicin Sulfate 0.1% Cr 15 Gm Tube) 1 appln EXT DAILY JAKOB Stop: 10/07/24 15:59 Last Admin: 10/04/24 09:02 Dose: Not Given Glucagon (Glucagon For Inj 1 Mg Vial) 1 mg SQ UD PRN; Protocol PRN Reason: Hypoglycemia Protocol Stop: 10/26/24 02:58 Glucose (Glucose 40% Gel 15 Gm Tube) 15 - 30 gm PO UD PRN; Protocol PRN Reason: Hypoglycemia Protocol Stop: 10/26/24 02:58 Glucose (Glucose 10 Tab/Tube) 4 - 8 tab PO UD PRN; Protocol PRN Reason: Hypoglycemia Protocol Stop: 10/26/24 02:58 Hydralazine HCl (Hydralazine Tab 50 Mg Tab) 50 mg PO TID JAKOB Stop: 11/03/24 13:59 Last Admin: 10/04/24 14:10 Dose: 50 mg Promethazine HCl (Phenergan) 6.25 mg in 50.25 mls @ 201 mls/hr IV Q6H PRN PRN Reason: Nausea And Vomiting Stop: 10/30/24 23:21 Last Infusion: 10/02/24 17:26 Dose: Infused Insulin Aspart (Insulin Aspart Per Unit Charge) 0 units SC ACHS [facility] Stop: 10/29/24 20:59 Last Admin: 10/04/24 12:04 Dose: 11 units Insulin Glargine (Lantus Per Unit Charge) 12 units SC DAILY [facility] Stop: 11/02/24 08:59 Last Admin: 10/04/24 08:29 Dose: 12 units Insulin Human NPH (Insulin Human Nph) 15 units SC HS [facility] Stop: 11/03/24 20:59 Iodixanol (Visipaque) 100 ml IV UD PRN PRN Reason: Radiology Use Stop: 10/05/24 09:29 Last Admin: 10/01/24 09:50 Dose: 15 ml Isosorbide Mononitrate (Isosorbide Mcintosh Extended Rel 60 Mg Tabcr) 60 mg PO QAM [facility] Stop: 10/26/24 08:59 Last Admin: 10/04/24 08:34 Dose: 60 mg Miscellaneous (Carbohydrates For Hypoglycemia ) 15 - 30 gm PO UD PRN PRN Reason: Hypoglycemia Protocol Stop: 10/26/24 02:58 Miscellaneous Information (Pharmacist Discharge Med Rec Consult) 1 each N/A UD PRN PRN Reason: Consult Stop: 10/26/24 02:58 Miscellaneous Information (Pharmacy Glycemic Mgmt Consult) 1 each N/A UD PRN; Protocol PRN Reason: Consult Stop: 10/31/24 12:47 Nitroglycerin (Nitroglycerin Sl 0.4 Mg/Tab Tab) 0.4 mg SL Q5M PRN PRN Reason: Chest Pain Stop: 10/26/24 02:58 Oxycodone/Acetaminophen (Oxycodone/Acetaminophen 5mg/325mg Tab) 1 - 2 tab PO Q4H PRN PRN Reason: Pain (Scale 3,4,5,6) Stop: 10/15/24 12:47 Last Admin: 10/01/24 19:46 Dose: 2 tab Polyethylene Glycol (Polyethylene (Miralax) 17 Gm Pack) 17 gm PO DAILY PRN PRN Reason: Constipation Stop: 10/26/24 02:58 Last Admin: 09/28/24 08:54 Dose: 17 gm Polyethylene Glycol (Polyethylene (Miralax) 17 Gm Pack) 17 gm PO Q48H JAKOB Stop: 10/26/24 08:59 Last Admin: 10/04/24 09:03 Dose: 17 gm Rosuvastatin Calcium (Rosuvastatin Calcium 20 Mg Tab) 20 mg PO QAM JAKOB Stop: 10/26/24 08:59 Last Admin: 10/04/24 08:33 Dose: 20 mg Sertraline HCl (Sertraline Hcl 100 Mg Tablet) 100 mg PO PM JAKOB Stop: 10/26/24 20:59 Last Admin: 10/03/24 20:16 Dose: 100 mg Sertraline HCl (Sertraline Hcl 50 Mg Tablet) 50 mg PO PM JAKOB Stop: 10/26/24 20:59 Last Admin: 10/03/24 20:16 Dose: 50 mg Sevelamer Carbonate (Sevelamer Carbonate 800 Mg Tab) 800 mg PO TIDM JAKOB Stop: 10/26/24 07:59 Last Admin: 10/04/24 11:52 Dose: 800 mg Tamsulosin HCl (Tamsulosin Hcl 0.4 Mg Cap) 0.4 mg PO QAM JAKOB Stop: 10/26/24 08:59 Last Admin: 10/04/24 08:34 Dose: 0.4 mg Ticagrelor (Ticagrelor 90 Mg Tab) 90 mg PO BID JAKOB Stop: 10/26/24 08:59 Last Admin: 10/04/24 08:39 Dose: 90 mg
[2024-10-04] MEDS: INSULIN HUMAN NPH SC SCH (20:38)
[2024-10-04] MEDS ORDERED: INSULIN HUMAN NPH SC SCH (21:00)
[2024-10-05 07:39] LABS: Hematocrit (blood only) 23.1 % (42.0-52.0); Hemoglobin 7.4 g/dl (14.0-18.0); Mean Corpuscular Hemoglobin 30.1 pg (25.0-34.0); Mean Corpuscular Volume 93.9 fL (80.0-100.0); Mean Platelet Volume 10.1 fL (9.4-12.4); Nucleated RBC # (auto) 0.03 K/uL (0.00-0.12); Nucleated RBC % (auto) 0.4 %; Platelet Count 200 K/uL (130-400); RDW Coefficient of Variation 14.5 % (11.5-14.5); RDW Standard Deviation 47.8 fL (36.4-46.3); Red Blood Count 2.46 M/uL (4.70-6.10); White Blood Count 7.63 K/ul (4.8-10.8)
[2024-10-05 08:01] LABS: Albumin Level 3.2 gm/dl (3.4-5.0); Calcium 8.7 mg/dl (8.6-10.3); Potassium 3.6 mmol/L (3.5-5.1)
[2024-10-05 08:09] LABS: BUN Creatinine Ratio 10.3 (10-20); Creatinine Clr Calc Pharmacy 12.6 ml/min
[2024-10-05] MEDS: INSULIN ASPART PER UNIT CHARGE SC SCH ×3 (08:22→17:42)
[2024-10-05] MEDS: LANTUS PER UNIT CHARGE SC SCH (08:22)
--- NOTE | 2024-10-05 09:54 | Nephrology Progress Note ---
Date of Service October 05, 2024 Assessment & Plan (1) End stage renal disease: (2) Complex renal cyst: (3) NSTEMI (non-ST elevated myocardial infarction): (4) Vision loss of right eye: (5) Stroke-like symptoms: (6) Acute blood loss as cause of postoperative anemia: (7) Peritoneal dialysis catheter in place: (8) Central artery occlusion of retina: Plan 69-year-old gentleman with past medical history significant for end-stage kidney disease on peritoneal dialysis since May 2024, diabetes, peripheral vascular disease, prior history of GBS admitted to the hospital on 09/26/2023 with strokelike symptoms and found to have right-sided vision loss with carotid occlusion. He recently had left-sided vision loss with occlusion of central retinal artery. Workup at that time showed bilateral significant carotid artery stenosis and he had left-sided TCAR on 09/19/2024. He saw his activated sludge operator on 09/25/2024 when he was found to have right-sided vision loss and right retinal artery occlusion and he was sent to ER for admission and further evaluation. He was also noted to have non-STEMI with elevated troponin, seen by cardiology but thought to be high risk for any intervention at this time and continued on medical management. Hemoglobin was noted to be low at 7.3 after some blood loss and hematoma post TCAR on 09/19/24. Hemoglobin improved after blood transfusion. Had right TCAR on 10/01/24. Has been getting peritoneal dialysis as per his out patient's schedule, has been tolerating well and having decent ultrafiltration. Blood pressure has been variable but denies any further feeling of dizziness or lightheadedness with standing up, no episode of orthostatic hypotension. Volume status acceptable. Electrolyte acceptable. Hb slightly improved to 7.4 -- continue CCPD tonight 4 exchanges, 2 L fill volume, 2.5% Delflex, Fill 10 minutes/dwell 90 minutes/drain 20 minutes, EDW 95 kg -- Dose medications for eGFR less than 10 -- Continue Bumex 4 mg twice a day -- Renvela 800 mg 3 times a day with meals -- Venofer 20 mg x 1 dose today -- Physical therapy Admission and Anticipated Discharge Date Admission Date: September 26, 2024 Subjective Gene was seen and evaluated this morning. He reports overall feeling much better today. Reports decent appetite. Yesterday he was able to participate with physical therapy, worked around the room without getting short of breath or lightheaded. Had PD overnight, UF again dropped to less than 200 mL but clinically no sign of volume overload. Right neck TCAR site hematoma stable. H emoglobin slightly improved to 7.4 this morning. Blood pressure fair,, electrolyte acceptable. Review of Systems Review of Systems: All systems reviewed & are unremarkable except as noted in Subjective Physical Exam Constitutional: WD/WN, vitals as above no acute distress Eyes: + anicteric sclerae Neck: large hematoma right side Respiratory: Auscultation: lungs clear to auscultation bilaterally Cardiovascular: Rate/Rhythm: regular rate and regular rhythm Heart Sounds: normal S1 and normal S2 Extremities: + AV fistula (left BC AVF with thrill and bruit); no edema Gastrointestinal (Abdomen): PD catheter site with no erythema, discharge, tenderness Skin: no rashes, warm and dry Neurologic: no focal motor deficits Psychiatric: Orientation: alert and oriented x 3 Results & Data Vital Signs (Past 12 Hours) Vital Signs Temp Pulse Pulse Resp BP Pulse Ox O2 Del Method 10/05/24 07:42 66 10/05/24 07:17 36.6 C 66 18 146/49 H 96 Room Air 10/05/24 03:01 36.5 C 68 18 152/74 H 94 Room Air 10/05/24 00:00 73 10/04/24 23:57 130/80 10/04/24 23:08 36.6 C 75 16 171/69 H 95 Room Air PG Care Time/CCT Total # of Minutes Spent Total Time Spent with Patient: Total time spent is greater than 50% in coordination of care (as documented) at patient's floor/unit and/or counseling patient: Coding Level of Care Code 35699 SUB INP/OBS CARE 2/35MIN Diagnoses End stage renal disease N18.6 Complex renal cyst N28.1 NSTEMI (non-ST elevated myocardial infarction) I21.4 Vision loss of right eye H54.61 Stroke-like symptoms R29.90 Acute blood loss as cause of postoperative anemia D62 Peritoneal dialysis catheter in place Z99.2 Central artery occlusion of retina H34.10
--- NOTE | 2024-10-05 10:41 | Surgery Progress Note ---
Date of Service October 05, 2024 Assessment & Plan (1) S/P vascular surgery: Plan: Doing well post TCAR. OK for d/c from vascular standpoint. Admission and Anticipated Discharge Date Admission Date: September 26, 2024 Subjective 69 yo m s/p R TCAR, seen in f/u today. Pt state feeling well, pain and swelling of R neck improving. No new complaints. Review of Systems Review of Systems: All systems reviewed & are unremarkable except as noted in HPI & below Physical Exam Constitutional: WD/WN, vitals as above cooperative and comfortable; not in distress Neck: trachea midline Skin: no rashes, warm and dry + incision (hematoma of the incision, soft) Neurologic: CN's II-XI intact bilaterally, normal sensation to monofilament, moves all extremities and awake; no focal motor deficits and not confused Psychiatric: A+Ox3, euthymic affect Results & Data Vital Signs (Past 12 Hours) Vital Signs Temp Pulse Pulse Pulse Resp BP Pulse Ox 10/05/24 08:00 36.5 C 65 18 10/05/24 07:42 66 10/05/24 07:17 36.6 C 66 18 146/49 H 96 10/05/24 03:01 36.5 C 68 18 152/74 H 94 10/05/24 00:00 73 10/04/24 23:57 130/80 10/04/24 23:08 36.6 C 75 16 171/69 H 95 O2 Del Method 10/05/24 08:00 10/05/24 07:42 10/05/24 07:17 Room Air 10/05/24 03:01 Room Air 10/05/24 00:00 10/04/24 23:57 10/04/24 23:08 Room Air
[2024-10-05] MEDS: IRON SUCROSE 400 MG in SODIUM CHLORIDE 0.9% 250 ML IV ONE (10:54)
--- NOTE | 2024-10-05 10:57 | Pharmacy Report ---
Pharmacy Glycemic Short Note 2 - Date of Service October 05, 2024 - Glycemic Short BSG Results (Last 24 hours): 10/04/24 10/04/24 10/04/24 10:46 16:03 20:17 Glucose POC Glucose 247 H 79 241 H 10/05/24 10/05/24 06:36 07:10 Glucose 168 H POC Glucose 196 H OUTPATIENT ANTIDIABETIC REGIMEN: * glipizide 10mg PO daily * Novolog 3units SQ BID * Lantus 12 units SQ HS HbA1C: 7.7 (09/26)- PD ASSESSMENT: 10/05 * Patient received a total of 66 units of insulin yesterday (25 units were basal--12 units lantus + 15 units NPH with PD exchanges-and 39 units were bolus. BSGs were still mostly above goal range yesterday ([phone]/dL). Will trial tightening the CR for breakfast, supper, and HS and loosing CF and CR insulin parameters just at lunch to try to avoid BSGs below goal range at supper time. * Fasting BSG was still elevated this morning, but improved from yesterday. Will continue NPH insulin with the PD exchanges and will increase Lantus dose starting this morning. 10/04 * Patient received a total of 56 units of insulin yesterday (22 units were basal-12units Lantus, 10 units NPH- and 34 units were bolus). Although the amount of daily insulin has increased, BSGs were still mostly above goal. * Fasting BSG was 231mg/dL this morning. Lantus dose was increased yesterday so will not increase again yet. Will increase dose of NPH that is given with PD e xchanges starting tonight. If this does not appear to help control the BSGs through the evening/AM, will consider using Lantus in the evening instead of the NPH. 10/02 * AM glucose 232 mg/dL. Will trial NPH tonight with PD exchanges. Continue with 10 units of lantus in the AM * Correction factor and carb ratio tightened- lunch BSG within goal range. Will monitor 10/01 * Pt is a 69 YOM admitted on 09/26 with a right ocular stroke. Now POD #0 R TCAR. History of DM2 on multiple anti-hyperglycemic agents at home as well as ESRD on peritoneal dialysis. Pharmacy consulted to assist with inpatient glycemic management. * BSGs elevated the last 24h: [phone]/dL. Received 10 units of basal and 22 units of bolus insulin yesterday. * No insulin administered this AM prior to surgery. Plan for 10 units of Lantus X 1 dose this afternoon + HS scale depending on BSG. Fasting BSGs have been above goal. Novolog tightened. PLAN FOR INPATIENT GLYCEMIC CONTROL: * Hold outpatient oral diabetes medications * Basal insulin * Lantus 15 units SQ qAM. NPH 15 units HS * Bolus insulin * NovoLog per scale ACHS or Q6hrs while NPO * Goal Range: Low 110 mg/dL - High 140 mg/dL * Correction Factor: breakfast, supper, and HS- 15 mg/dL/unit; Lunch 20 mg/dL/unit * Nutritional / Prandial insulin per carb ratio of : breakfast, supper and HS- 1 unit per 7 grams CHO consumed; Lunch 1 unit per 15 grams CHO consumed
--- NOTE | 2024-10-05 19:28 | Hospitalist Progress Note ---
Date of Service October 05, 2024 Assessment & Plan (1) Stroke-like symptoms: Plan Per previous hospitalist w/addendum Pt is a 69-year-old male with past medical history significant for end-stage renal disease on peritoneal dialysis, hypertension, hyperlipidemia, history of PE on chronic Coumadin, type 2 diabetes, peripheral vascular disease, CHF who presents with right ocular stroke. Patient was admitted on 08/30/2024 with left eye vision loss, outpatient ophthalmology found to have central artery occlusion and patient was admitted to hospital. Imaging studies showed high-grade stenosis of the bilateral internal and external carotid arteries. 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 stroke protocol with MRI scan, echo Neurochecks Telemetry Neurology consulted, appreciate recs Vascular surgery consulted, appreciate recs 09/26- pt with worsening vision, repeat stat head CT and chest XRAY- no acute change. Holding IV heparin 09/27- to have R TCAR on Tuesday, per Vascular continue brillinta, aspirin and statin 09/28- stable 09/29- stable 09/30- TCAR with vascular in the AM, NPO after midnight 10/01- s/p R TCAR, stable post op, being monitored in the ICU 10/02- stable, cleared for discharge by vascular. Awaiting rehab placement. Continue Brilinta and aspirin. Warfarin still on hold. 10/03 Today had episode of dizziness when up from bed and SBP down to 70s Pt evaluated immediately at the bedside, while lying in bed BP improved to SBP 130s. Pt feeling well while lying in bed, denies any chest pain, shortness of breath, palpitations, denies any significant pain, sweats, dizziness. stat H&H obtained - and down to 6.4 Discussed with vasc. surgeon and harness brusher, and also with blood bank (as pt had reportedly poss. blood transfusion reaction - per blood bank no cause was found, per chart review pt received IV bumex - felt it was fluid overload reaction) -> ordered CT abd/pelvis scan to eval for bleed -> bleed ruled out, see below IMPRESSION: No evidence of acute bleed identified in this examination. Specifically, no evidence of retroperitoneal hematoma. No evidence of acute gastrointestinal bleed. Dialysis catheter entering the peritoneal cavity from the anterior pelvis with tip terminating over the rectovesical pouch. Small abdominopelvic ascitic fluid that is new from previous examination. Urinary bladder is decompressed with Lux catheter in place. There is moderate wall thickening to the urinary bladder which could be due to chronic outlet obstruction and/or superimposed cystitis. Very trace quantity of free air suggested over the anterior abdomen. This may be due to the dialysis catheter. FOBT - negative Attempted to blood transfuse again - pt unfortunately had reaction again - CXR obtained, Doppler ordered - negative for DVT, V/Q scan - negative Anemia Hemoglobin 7.7 Hemoglobin 8.5 recently Usually seems to be 9-10 range Will check stool for Hemoccult Iron studies, vitamin B12 folate levels Repeat H/H Holding anticoagulation as above 09/27- pt with attempt at blood transfusion yesterday but it was discontinued when he developed chest tightness and SOB. Hgb 8.1 today, improved from 7.2 on last check. Continue to monitor H/H 09/28-hgb down to 7.6, continue to monitor 09/29- hgb back up to 8.1 10/02- hgb down postop to 7.0. Issues with prior transfusion, will need diuresis before and after with blood transfusion per previous cardiology recs 10/03 BP down w/abulation and Hgb 6.9, on stat repeat Hgb 6.4 - FOBT ordered, CT abd/pelvis ordered. Vascular surgeon contacted and discussed with. attempting for blood transfusion again - discussed w/ blood bank 10/04 Hgb 7.2 (pt was not bale to finish blood transfusion, had reaction again as above) 10/05 Hgb 7.4 Non-ST elevated VT HTN Troponin 2486 Denies chest pain EKG has some ST depressions in lateral leads Has shortness on exertion Patient has history of PE on Coumadin INR is 1.8 today Follow echo Hold heparin and warfarin at this time On amlodipine, hydralazine, Imdur and Coreg Cardiology consult for further recommendation 09/30- episode of chest pain overnight relived by nitro, appreciate further cardiology recs Complicated bronchitis vs. Possible Pneumonia Acute hypoxic respiratory Failure Chest XRAY from 04/20 noting infection Started on Augmentin BID Pt with occasional need for oxygen May need 2 step before discharge Hyperlipidemia On statin and fenofibrate History of PE Holding anticoagulation as above End-stage renal disease On peritoneal dialysis at home Continue home Bumex Nephrology consulted, appreciate further recs Diabetes Hold glipizide and home Lantus Lantus 5 daily and sliding scale Close monitor BPH On finasteride and Flomax Monitor for urinary retention Depression On Zoloft Diet: HH/Dialysis renal, DM DVT prophylaxis: SCDs, IV heparin on hold. Monitor h and h Dispo: PT/OT for further recs Admission and Anticipated Discharge Date Admission Date: September 26, 2024 Subjective Pt seen in follow up s/p vascular surg. w/ Dr. Scott, and on PD w/ nephrology 10/03 - pt had episode of dizziness when up from bed and SBP down to 70s. stat H&H obtained - and down to 6.4 Discussed with vasc. surgeon and harness brusher, and also with blood bank (as pt had reportedly poss. blood transfusion reaction - per blood bank no cause was found, per chart review pt received IV bumnex - felt it was fluid overload reaction) -> ordered CT abd/pelvis scan to eval for bleed - bleed ruled out fobt ordered Tried to blood transfuse again - pt again developed reaction - complained of sh ortness of breath, chest pain 10/04 Hgb 7.2 Pt is feeling well. Denies any issues, no chest pain, shortness of breath, dizziness, pt has been out of bed several times as well 10/05 Hgb 7.4 Pt continues to do well, inquiring about discharge Review of Systems Review of Systems: All systems reviewed & are unremarkable except as noted in Subjective Physical Exam Physical Exam: General: Alert, oriented. obese M, chronically ill appearing, in NAD HEENT: decreased vision in both eyes, + neck hematoma (post-surgical), ecchymosis CV: RRR Resp: Breath sounds decreased bilaterally, no increased effort of breathing Abdomen: Soft, nontender, obese Extremities: minimal edema in lower extremities bilaterally. Skin: warm dry Results & Data Results & Data Vital Signs (Past 12 Hours) Vital Signs Temp Pulse Pulse Pulse Resp BP BP 10/05/24 19:25 36.5 C 73 18 126/82 10/05/24 17:37 36.5 C 78 18 146/49 H 10/05/24 15:26 36.5 C 71 18 130/60 10/05/24 14:33 72 10/05/24 10:58 36.7 C 68 18 134/73 10/05/24 08:00 36.5 C 65 18 10/05/24 07:42 66 10/05/24 07:30 Pulse Ox O2 Del Method 10/05/24 19:25 95 Room Air 10/05/24 17:37 10/05/24 15:26 94 Room Air 10/05/24 14:33 10/05/24 10:58 95 Room Air 10/05/24 08:00 10/05/24 07:42 10/05/24 07:30 Room Air Laboratory Results 10/05/24 10/05/24 10/05/24 Range/Units 16:22 11:17 07:10 WBC (4.8-10.8) K/ul RBC (4.70-6.10) M/uL Hgb (14.0-18.0) g/dl Hct (42.0-52.0) % MCV (80.0-100.0) fL MCH (25.0-34.0) pg MCHC (32.0-36.0) g/dL RDW Std Deviation (36.4-46.3) fL RDW Coeff of Severiano (11.5-14.5) % Plt Count (130-400) K/uL MPV (9.4-12.4) fL Absolute Nucleated RBC (0.00-0.12) K/uL Nucleated RBC % (auto) % Sodium (136-145) mmol/L Potassium (3.5-5.1) mmol/L Chloride (98-107) mmol/L Carbon Dioxide (21-32) mmol/L Anion Gap (3-11) BUN (6-23) mg/dl Creatinine (0.6-1.4) mg/dl Est Cr Clr Drug Dosing ml/min eGFR BUN/Creatinine Ratio (10-20) Glucose (70-99(Fasting)) mg/dl POC Glucose 149 H 204 H 196 H (70-99) mg/dl Calcium (8.6-10.3) mg/dl Phosphorus (2.5-4.9) mg/dl Magnesium (1.7-2.4) mg/dl Albumin (3.4-5.0) gm/dl Transfusion Serv Com 10/05/24 10/04/24 10/03/24 Range/Units 06:36 20:17 22:43 WBC 7.63 (4.8-10.8) K/ul RBC 2.46 L (4.70-6.10) M/uL Hgb 7.4 L (14.0-18.0) g/dl Hct 23.1 L (42.0-52.0) % MCV 93.9 (80.0-100.0) fL MCH 30.1 (25.0-34.0) pg MCHC 32.0 (32.0-36.0) g/dL RDW Std Deviation 47.8 H (36.4-46.3) fL RDW Coeff of Severiano 14.5 (11.5-14.5) % Plt Count 200 (130-400) K/uL MPV 10.1 (9.4-12.4) fL Absolute Nucleated RBC 0.03 (0.00-0.12) K/uL Nucleated RBC % (auto) 0.4 % Sodium 138 (136-145) mmol/L Potassium 3.6 (3.5-5.1) mmol/L Chloride 98 (98-107) mmol/L Carbon Dioxide 30 (21-32) mmol/L Anion Gap 10 (3-11) BUN 63 H (6-23) mg/dl Creatinine 6.10 H* (0.6-1.4) mg/dl Est Cr Clr Drug Dosing 12.6 ml/min eGFR 9.24 BUN/Creatinine Ratio 10.3 (10-20) Glucose 168 H (70-99(Fasting)) mg/dl POC Glucose 241 H (70-99) mg/dl Calcium 8.7 (8.6-10.3) mg/dl Phosphorus 5.0 H (2.5-4.9) mg/dl Magnesium 2.0 (1.7-2.4) mg/dl Albumin 3.2 L (3.4-5.0) gm/dl Transfusion Serv Com NONE Medications Administered Current Inpatient Medications Acetaminophen (Acetaminophen 325 Mg Tab) 650 mg PO Q4H PRN PRN Reason: Pain or Fever Stop: 10/26/24 02:58 Last Admin: 10/05/24 09:02 Dose: 650 mg Amlodipine Besylate (Amlodipine Besylate 5 Mg Tab) 5 mg PO BID JAKOB Stop: 10/26/24 08:59 Last Admin: 10/05/24 08:33 Dose: 5 mg Aspirin (Aspirin 81 Mg Ectab) 81 mg PO PM JAKOB Stop: 10/26/24 20:59 Last Admin: 10/04/24 20:39 Dose: 81 mg Bumetanide (Bumetanide 1 Mg Tab) 4 mg PO [id number] JAKOB Stop: 10/26/24 08:59 Last Admin: 10/05/24 17:35 Dose: 4 mg Carvedilol (Carvedilol 25 Mg Tab) 25 mg PO BID JAKOB Stop: 10/30/24 20:59 Last Admin: 10/05/24 08:33 Dose: 25 mg Dextrose (Dextrose 50% 50 Ml Syringe) 25 - 50 ml IV UD PRN; Protocol PRN Reason: Hypoglycemia Protocol Stop: 10/26/24 02:58 Diphenhydramine HCl (Diphenhydramine Capsule 25 Mg Cap) 25 mg PO ONE PRN PRN Reason: before transfusion Stop: 11/02/24 18:28 Last Admin: 10/03/24 20:20 Dose: 25 mg Fenofibrate (Fenofibrate Patient's Own) 1 each PO PM JAKOB Stop: 10/27/24 20:59 Last Admin: 10/04/24 20:39 Dose: 1 each Finasteride (Finasteride 5 Mg Tab) 5 mg PO QAM JAKOB Stop: 10/26/24 08:59 Last Admin: 10/05/24 08:33 Dose: 5 mg Gabapentin (Gabapentin 100 Mg Cap) 100 mg PO TID JAKOB Stop: 10/26/24 08:59 Last Admin: 10/05/24 14:10 Dose: 100 mg Gentamicin Sulfate (Gentamicin Sulfate 0.1% Cr 15 Gm Tube) 1 appln EXT DAILY JAKOB Stop: 10/07/24 15:59 Last Admin: 10/05/24 08:37 Dose: 1 appln Glucagon (Glucagon For Inj 1 Mg Vial) 1 mg SQ UD PRN; Protocol PRN Reason: Hypoglycemia Protocol Stop: 10/26/24 02:58 Glucose (Glucose 40% Gel 15 Gm Tube) 15 - 30 gm PO UD PRN; Protocol PRN Reason: Hypoglycemia Protocol Stop: 10/26/24 02:58 Glucose (Glucose 10 Tab/Tube) 4 - 8 tab PO UD PRN; Protocol PRN Reason: Hypoglycemia Protocol Stop: 10/26/24 02:58 Hydralazine HCl (Hydralazine Tab 50 Mg Tab) [address] [facility] Stop: 11/03/24 13:59 Last Admin: 10/05/24 14:10 Dose: 50 mg Promethazine HCl (Phenergan) 6.25 mg in 50.25 mls @ 201 mls/hr IV Q6H PRN PRN Reason: Nausea And Vomiting Stop: 10/30/24 23:21 Last Infusion: 10/05/24 03:23 Dose: Infused Insulin Aspart (Insulin Aspart Per Unit Charge) [address] [facility] Stop: 11/04/24 11:29 Last Admin: 10/05/24 12:12 Dose: 9 units Insulin Aspart (Insulin Aspart Per Unit Charge) 0 units SC 0730,1630,2100 [facility] Stop: 11/04/24 07:29 Last Admin: 10/05/24 17:32 Dose: 11 units Insulin Glargine (Lantus Per Unit Charge) [address] [facility] Stop: 11/04/24 08:59 Last Admin: 10/05/24 08:22 Dose: 15 units Insulin Human NPH (Insulin Human Nph) [address] [facility] Stop: 11/03/24 20:59 Last Admin: 10/04/24 20:38 Dose: 15 units Isosorbide Mononitrate (Isosorbide [place] Extended Rel 60 Mg Tabcr) [address] [facility] Stop: 10/26/24 08:59 Last Admin: 10/05/24 08:29 Dose: 60 mg Miscellaneous (Carbohydrates For Hypoglycemia ) 15 - 30 gm PO UD PRN PRN Reason: Hypoglycemia Protocol Stop: 10/26/24 02:58 Miscellaneous Information (Pharmacist Discharge Med Rec Consult) 1 each N/A UD PRN PRN Reason: Consult Stop: 10/26/24 02:58 Miscellaneous Information (Pharmacy Glycemic Mgmt Consult) 1 each N/A UD PRN; Protocol PRN Reason: Consult Stop: 10/31/24 12:47 Nitroglycerin (Nitroglycerin Sl 0.4 Mg/Tab Tab) 0.4 mg SL Q5M PRN PRN Reason: Chest Pain Stop: 10/26/24 02:58 Oxycodone/Acetaminophen (Oxycodone/Acetaminophen 5mg/325mg Tab) 1 - 2 tab PO Q4H PRN PRN Reason: Pain (Scale 3,4,5,6) Stop: 10/15/24 12:47 Last Admin: 10/01/24 19:46 Dose: 2 tab Polyethylene Glycol (Polyethylene (Miralax) 17 Gm Pack) 17 gm PO DAILY PRN PRN Reason: Constipation Stop: 10/26/24 02:58 Last Admin: 09/28/24 08:54 Dose: 17 gm Polyethylene Glycol (Polyethylene (Miralax) 17 Gm Pack) [address] [facility] Stop: 10/26/24 08:59 Last Admin: 10/04/24 09:03 Dose: 17 gm Rosuvastatin Calcium (Rosuvastatin Calcium 20 Mg Tab) [address] [facility] Stop: 10/26/24 08:59 Last Admin: 10/05/24 08:32 Dose: 20 mg Sertraline HCl (Sertraline Hcl 100 Mg Tablet) 100 mg PO PM JAKOB Stop: 10/26/24 20:59 Last Admin: 10/04/24 20:39 Dose: 100 mg Sertraline HCl (Sertraline Hcl 50 Mg Tablet) 50 mg PO PM JAKOB Stop: 10/26/24 20:59 Last Admin: 10/04/24 20:40 Dose: 50 mg Sevelamer Carbonate (Sevelamer Carbonate 800 Mg Tab) [address] [facility] Stop: 10/26/24 07:59 Last Admin: 10/05/24 17:35 Dose: 800 mg Tamsulosin HCl (Tamsulosin Hcl 0.4 Mg Cap) 0.4 mg PO QAM JAKOB Stop: 10/26/24 08:59 Last Admin: 10/05/24 08:34 Dose: 0.4 mg Ticagrelor (Ticagrelor 90 Mg Tab) 90 mg PO BID JAKOB Stop: 10/26/24 08:59 Last Admin: 10/05/24 08:32 Dose: 90 mg
[2024-10-05] MEDS: NovoLIN-N (NPH) PER UNIT CHARGE SQ SCH (21:02)
[2024-10-06 02:59] VITALS: RESP 18
[2024-10-06 07:49] LABS: Hematocrit (blood only) 24.1 % (42.0-52.0); Hemoglobin 7.8 g/dl (14.0-18.0); Mean Corpuscular Hgb Conc 32.4 g/dL (32.0-36.0); Mean Corpuscular Volume 95.6 fL (80.0-100.0); Mean Platelet Volume 10.1 fL (9.4-12.4); Nucleated RBC # (auto) 0.03 K/uL (0.00-0.12); Nucleated RBC % (auto) 0.4 %; Platelet Count 192 K/uL (130-400); RDW Coefficient of Variation 14.8 % (11.5-14.5); RDW Standard Deviation 49.6 fL (36.4-46.3); Red Blood Count 2.52 M/uL (4.70-6.10); White Blood Count 8.01 K/ul (4.8-10.8)
[2024-10-06 08:25] LABS: Albumin Level 3.2 gm/dl (3.4-5.0); BUN Creatinine Ratio 10.5 (10-20); Calcium 8.6 mg/dl (8.6-10.3); Creatinine Clr Calc Pharmacy 12.7 ml/min; Magnesium 2.1 mg/dl (1.7-2.4); Phosphorus 4.7 mg/dl (2.5-4.9); Potassium 3.2 mmol/L (3.5-5.1)
[2024-10-06] MEDS: POTASSIUM CHLORIDE CRTAB 20 MEQ TABCR PO STA (10:16)
--- NOTE | 2024-10-06 11:11 | Hospitalist Progress Note ---
Date of Service October 06, 2024 Assessment & Plan (1) Stroke-like symptoms: Plan Per previous hospitalist w/addendum Pt is a 69-year-old male with past medical history significant for end-stage renal disease on peritoneal dialysis, hypertension, hyperlipidemia, history of PE on chronic Coumadin, type 2 diabetes, peripheral vascular disease, CHF who presents with right ocular stroke. Patient was admitted on 08/30/2024 with left eye vision loss, outpatient ophthalmology found to have central artery occlusion and patient was admitted to hospital. Imaging studies showed high-grade stenosis of the bilateral internal and external carotid arteries. 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 stroke protocol with MRI scan, echo Neurochecks Telemetry Neurology consulted, appreciate recs Vascular surgery consulted, appreciate recs 09/26- pt with worsening vision, repeat stat head CT and chest XRAY- no acute change. Holding IV heparin 09/27- to have R TCAR on Tuesday, per Vascular continue brillinta, aspirin and statin 09/28- stable 09/29- stable 09/30- TCAR with vascular in the AM, NPO after midnight 10/01- s/p R TCAR, stable post op, being monitored in the ICU 10/02- stable, cleared for discharge by vascular. Awaiting rehab placement. Continue Brilinta and aspirin. Warfarin still on hold. 10/03 Today had episode of dizziness when up from bed and SBP down to 70s Pt evaluated immediately at the bedside, while lying in bed BP improved to SBP 130s. Pt feeling well while lying in bed, denies any chest pain, shortness of breath, palpitations, denies any significant pain, sweats, dizziness. stat H&H obtained - and down to 6.4 Discussed with vasc. surgeon and yard jockey, and also with blood bank (as pt had reportedly poss. blood transfusion reaction - per blood bank no cause was found, per chart review pt received IV bumex - felt it was fluid overload reaction) -> ordered CT abd/pelvis scan to eval for bleed -> bleed ruled out FOBT - negative received epo from nephrology, also gave iv iron Attempted to blood transfuse again - pt unfortunately had reaction again - CXR obtained, Doppler ordered - negative for DVT, V/Q scan - negative Anemia Hemoglobin 7.7 Hemoglobin 8.5 recently Usually seems to be 9-10 range Will check stool for Hemoccult Iron studies, vitamin B12 folate levels Repeat H/H Holding anticoagulation as above 09/27- pt with attempt at blood transfusion yesterday but it was discontinued when he developed chest tightness and SOB. Hgb 8.1 today, improved from 7.2 on last check. Continue to monitor H/H 09/28-hgb down to 7.6, continue to monitor 09/29- hgb back up to 8.1 10/02- hgb down postop to 7.0. Issues with prior transfusion, will need diuresis before and after with blood transfusion per previous cardiology recs 10/03 BP down w/abulation and Hgb 6.9, on stat repeat Hgb 6.4 - FOBT ordered, CT abd/pelvis ordered. Vascular surgeon contacted and discussed with. attempting for blood transfusion again - discussed w/ blood bank 10/04 Hgb 7.2 (pt was not bale to finish blood transfusion, had reaction again as above) 10/05 Hgb 7.4 10/06 Hgb 7.8 Non-ST elevated [place] HTN Troponin 2486 Denies chest pain EKG has some ST depressions in lateral leads Has shortness on exertion Patient has history of PE on Coumadin INR is 1.8 today Follow echo Hold heparin and warfarin at this time On amlodipine, hydralazine, Imdur and Coreg Cardiology consult for further recommendation 09/30- episode of chest pain overnight relived by nitro, appreciate further cardiology recs Complicated bronchitis vs. Possible Pneumonia Acute hypoxic respiratory Failure Chest XRAY from 09/30 noting infection Augmentin BID - finished course Pt with occasional need for oxygen May need 2 step before discharge Hyperlipidemia On statin and fenofibrate History of PE Holding anticoagulation as above End-stage renal disease On peritoneal dialysis at home Continue home Bumex Nephrology consulted, appreciate further recs Diabetes Hold glipizide and home Lantus Lantus 5 daily and sliding scale Close monitor BPH On finasteride and Flomax Monitor for urinary retention Depression On Zoloft Diet: HH/Dialysis renal, DM DVT prophylaxis: SCDs, IV heparin on hold. Monitor h and h Dispo: PT/OT for further recs Admission and Anticipated Discharge Date Admission Date: September 26, 2024 Subjective Pt seen in follow up s/p vascular surg. w/ Dr. Scott, and on PD w/ nephrology 10/03 - pt had episode of dizziness when up from bed and SBP down to 70s. stat H&H obtained - and down to 6.4 Discussed with vasc. surgeon and yard jockey, and also with blood bank (as pt had reportedly poss. blood transfusion reaction - per blood bank no cause was found, per chart review pt received IV bumnex - felt it was fluid overload reaction) -> ordered CT abd/pelvis scan to eval for bleed - bleed ruled out fobt ordered Tried to blood transfuse again - pt again developed reaction - complained of shortness of breath, chest pain 10/04 Hgb 7.2 Pt is feeling well. Denies any issues, no chest pain, shortness of breath, dizziness, pt has been out of bed several times as well 10/05 Hgb 7.4 Pt continues to do well, inquiring about discharge 10/06 hgb 7.8. Pt had episode of emesis last night, he is not sure what brought it on. This AM when getting up from bed with PT felt unwell and BP was lower sbp to 80s. will apply compression stockings Review of Systems Review of Systems: All systems reviewed & are unremarkable except as noted in Subjective Physical Exam Physical Exam: General: Alert, oriented. obese M, chronically ill appearing, in NAD HEENT: decreased vision in both eyes, + neck hematoma (post-surgical), ecchymosis CV: RRR Resp: Breath sounds decreased bilaterally, no increased effort of breathing Abdomen: Soft, nontender, obese Extremities: minimal edema in lower extremities bilaterally. Skin: warm dry Results & Data Results & Data Vital Signs (Past 12 Hours) Vital Signs Temp Pulse Pulse Resp BP BP Pulse Ox 10/06/24 08:29 36.8 C 84 18 10/06/24 07:49 79 10/06/24 07:48 36.8 C 84 18 138/56 L 96 10/06/24 02:59 36.6 C 64 18 135/73 95 10/05/24 23:18 36.5 C 75 19 150/74 H 94 O2 Del Method 10/06/24 08:29 04/26/25 07:49 10/06/24 07:48 Room Air 10/06/24 02:59 Room Air 10/05/24 23:18 Room Air Laboratory Results 10/06/24 10/06/24 10/06/24 Range/Units 11:01 07:19 06:21 WBC 8.01 (4.8-10.8) K/ul RBC 2.52 L (4.70-6.10) M/uL Hgb 7.8 L (14.0-18.0) g/dl Hct 24.1 L (42.0-52.0) % MCV 95.6 (80.0-100.0) fL MCH 31.0 (25.0-34.0) pg MCHC 32.4 (32.0-36.0) g/dL RDW Std Deviation 49.6 H (36.4-46.3) fL RDW Coeff of Severiano 14.8 H (11.5-14.5) % Plt Count 192 (130-400) K/uL MPV 10.1 (9.4-12.4) fL Absolute Nucleated RBC 0.03 (0.00-0.12) K/uL Nucleated RBC % (auto) 0.4 % Sodium 136 (136-145) mmol/L Potassium 3.2 L (3.5-5.1) mmol/L Chloride 96 L (98-107) mmol/L Carbon Dioxide 32 (21-32) mmol/L Anion Gap 8 (3-11) BUN 63 H (6-23) mg/dl Creatinine 6.00 H* (0.6-1.4) mg/dl Est Cr Clr Drug Dosing 12.7 ml/min eGFR 9.43 BUN/Creatinine Ratio 10.5 (10-20) Glucose 171 H (70-99(Fasting)) mg/dl POC Glucose 152 H 187 H (70-99) mg/dl Calcium 8.6 (8.6-10.3) mg/dl Phosphorus 4.7 (2.5-4.9) mg/dl Magnesium 2.1 (1.7-2.4) mg/dl Albumin 3.2 L (3.4-5.0) gm/dl 10/05/24 10/05/24 10/05/24 Range/Units 19:56 16:22 11:17 WBC (4.8-10.8) K/ul RBC (4.70-6.10) M/uL Hgb (14.0-18.0) g/dl Hct (42.0-52.0) % MCV (80.0-100.0) fL MCH (25.0-34.0) pg MCHC (32.0-36.0) g/dL RDW Std Deviation (36.4-46.3) fL RDW Coeff of Severiano (11.5-14.5) % Plt Count (130-400) K/uL MPV (9.4-12.4) fL Absolute Nucleated RBC (0.00-0.12) K/uL Nucleated RBC % (auto) % Sodium (136-145) mmol/L Potassium (3.5-5.1) mmol/L Chloride (98-107) mmol/L Carbon Dioxide (21-32) mmol/L Anion Gap (3-11) BUN (6-23) mg/dl Creatinine (0.6-1.4) mg/dl Est Cr Clr Drug Dosing ml/min eGFR BUN/Creatinine Ratio (10-20) Glucose (70-99(Fasting)) mg/dl POC Glucose 203 H 149 H 204 H (70-99) mg/dl Calcium (8.6-10.3) mg/dl Phosphorus (2.5-4.9) mg/dl Magnesium (1.7-2.4) mg/dl Albumin (3.4-5.0) gm/dl Medications Administered Current Inpatient Medications Acetaminophen (Acetaminophen 325 Mg Tab) 650 mg PO Q4H PRN PRN Reason: Pain or Fever Stop: 10/26/24 02:58 Last Admin: 10/05/24 09:02 Dose: 650 mg Amlodipine Besylate (Amlodipine Besylate 5 Mg Tab) 5 mg PO BID JAKOB Stop: 10/26/24 08:59 Last Admin: 10/06/24 08:12 Dose: 5 mg Aspirin (Aspirin 81 Mg Ectab) 81 mg PO PM [facility] Stop: 10/26/24 20:59 Last Admin: 10/05/24 19:39 Dose: 81 mg Bumetanide (Bumetanide 1 Mg Tab) 4 mg PO [id number] [facility] Stop: 10/26/24 08:59 Last Admin: 10/06/24 08:11 Dose: 4 mg Carvedilol (Carvedilol 25 Mg Tab) 25 mg PO BID JAKOB Stop: 10/30/24 20:59 Last Admin: 10/06/24 08:12 Dose: 25 mg Dextrose (Dextrose 50% 50 Ml Syringe) 25 - 50 ml IV UD PRN; Protocol PRN Reason: Hypoglycemia Protocol Stop: 10/26/24 02:58 Diphenhydramine HCl (Diphenhydramine Capsule 25 Mg Cap) 25 mg PO ONE PRN PRN Reason: before transfusion Stop: 11/02/24 18:28 Last Admin: 10/03/24 20:20 Dose: 25 mg Fenofibrate (Fenofibrate Patient's Own) 1 each PO PM JAKOB Stop: 10/27/24 20:59 Last Admin: 10/05/24 19:43 Dose: 1 each Finasteride (Finasteride 5 Mg Tab) 5 mg PO QAM JAKOB Stop: 10/26/24 08:59 Last Admin: 10/06/24 08:13 Dose: 5 mg Gabapentin (Gabapentin 100 Mg Cap) 100 mg PO TID JAKOB Stop: 10/26/24 08:59 Last Admin: 10/06/24 08:13 Dose: 100 mg Gentamicin Sulfate (Gentamicin Sulfate 0.1% Cr 15 Gm Tube) 1 appln EXT DAILY [facility] Stop: 10/07/24 15:59 Last Admin: 10/06/24 08:14 Dose: 1 appln Glucagon (Glucagon For Inj 1 Mg Vial) 1 mg SQ UD PRN; Protocol PRN Reason: Hypoglycemia Protocol Stop: 10/26/24 02:58 Glucose (Glucose 40% Gel 15 Gm Tube) 15 - 30 gm PO UD PRN; Protocol PRN Reason: Hypoglycemia Protocol Stop: 10/26/24 02:58 Glucose (Glucose 10 Tab/Tube) 4 - 8 tab PO UD PRN; Protocol PRN Reason: Hypoglycemia Protocol Stop: 10/26/24 02:58 Hydralazine HCl (Hydralazine Tab 50 Mg Tab) 50 mg PO TID JAKOB Stop: 11/03/24 13:59 Last Admin: 10/06/24 08:14 Dose: 50 mg Promethazine HCl (Phenergan) 6.25 mg in 50.25 mls @ 201 mls/hr IV Q6H PRN PRN Reason: Nausea And Vomiting Stop: 10/30/24 23:21 Last Infusion: 10/05/24 21:52 Dose: Infused Insulin Aspart (Insulin Aspart Per Unit Charge) 0 units SC QDL [facility] Stop: 11/04/24 11:29 Last Admin: 10/05/24 12:12 Dose: 9 units Insulin Aspart (Insulin Aspart Per Unit Charge) 0 units SC 0730,1630,2100 [facility] Stop: 11/04/24 07:29 Last Admin: 10/06/24 08:07 Dose: 9 units Insulin Glargine (Lantus Per Unit Charge) 15 units SC DAILY [facility] Stop: 11/04/24 08:59 Last Admin: 10/06/24 08:06 Dose: 15 units Insulin Human NPH (Novolin-N (Nph) Per Unit Charge) 15 units SQ HS [facility] Stop: 11/04/24 20:59 Last Admin: 10/05/24 21:02 Dose: 15 units Isosorbide Mononitrate (Isosorbide Bowman Extended Rel 60 Mg Tabcr) 60 mg PO QAM [facility] Stop: 10/26/24 08:59 Last Admin: 10/06/24 08:15 Dose: 60 mg Miscellaneous (Carbohydrates For Hypoglycemia ) 15 - 30 gm PO UD PRN PRN Reason: Hypoglycemia Protocol Stop: 10/26/24 02:58 Miscellaneous Information (Pharmacist Discharge Med Rec Consult) 1 each N/A UD PRN PRN Reason: Consult Stop: 10/26/24 02:58 Miscellaneous Information (Pharmacy Glycemic Mgmt Consult) 1 each N/A UD PRN; Protocol PRN Reason: Consult Stop: 10/31/24 12:47 Nitroglycerin (Nitroglycerin Sl 0.4 Mg/Tab Tab) 0.4 mg SL Q5M PRN PRN Reason: Chest Pain Stop: 10/26/24 02:58 Oxycodone/Acetaminophen (Oxycodone/Acetaminophen 5mg/325mg Tab) 1 - 2 tab PO Q4H PRN PRN Reason: Pain (Scale 3,4,5,6) Stop: 10/15/24 12:47 Last Admin: 10/01/24 19:46 Dose: 2 tab Polyethylene Glycol (Polyethylene (Miralax) 17 Gm Pack) 17 gm PO DAILY PRN PRN Reason: Constipation Stop: 10/26/24 02:58 Last Admin: 09/28/24 08:54 Dose: 17 gm Polyethylene Glycol (Polyethylene (Miralax) 17 Gm Pack) 17 gm PO Q48H JAKOB Stop: 10/26/24 08:59 Last Admin: 10/06/24 08:29 Dose: 17 gm Rosuvastatin Calcium (Rosuvastatin Calcium 20 Mg Tab) 20 mg PO QAM JAKOB Stop: 10/26/24 08:59 Last Admin: 10/06/24 08:14 Dose: 20 mg Sertraline HCl (Sertraline Hcl 100 Mg Tablet) 100 mg PO PM JAKOB Stop: 10/26/24 20:59 Last Admin: 10/05/24 19:44 Dose: 100 mg Sertraline HCl (Sertraline Hcl 50 Mg Tablet) 50 mg PO PM JAKOB Stop: 10/26/24 20:59 Last Admin: 10/05/24 19:42 Dose: 50 mg Sevelamer Carbonate (Sevelamer Carbonate 800 Mg Tab) 800 mg PO TIDM JAKOB Stop: 10/26/24 07:59 Last Admin: 10/06/24 08:11 Dose: 800 mg Tamsulosin HCl (Tamsulosin Hcl 0.4 Mg Cap) 0.4 mg PO QAM JAKOB Stop: 10/26/24 08:59 Last Admin: 10/06/24 08:16 Dose: 0.4 mg Ticagrelor (Ticagrelor 90 Mg Tab) 90 mg PO BID JAKOB Stop: 10/26/24 08:59 Last Admin: 10/06/24 08:29 Dose: 90 mg
--- NOTE | 2024-10-06 12:25 | Nephrology Progress Note ---
Date of Service October 06, 2024 Assessment & Plan (1) End stage renal disease: Plan: Attributed to DKD and vascular disease. Maintained on PD since May 2024. Tolerating PD well. Volume status controlled. Adequate clearance. Continue CCPD. Orders for treatment tonight entered into EHR. Will switch to 1.5% delflex solution. 4 exchanges, 2 L fill volume, 2.5% Delflex, Fill 10 minutes/dwell 90 minutes/drain 20 minutes, EDW 95 kg. Continue Bumex to encouarge UOP. Renvela 800 mg with each meal. Elizabeth diet. (2) Complex renal cyst: Plan: Outpatient follow up. (3) Acute blood loss as cause of postoperative anemia: Plan: Hemoglobin stable. Additional 200 mg IV venofer provided today. Epogen 35554 units provided October 03. (4) Peritoneal dialysis catheter in place: Plan: Routine care per protocol. Admission and Anticipated Discharge Date Admission Date: September 26, 2024 Subjective Herb developed some nausea and lightheadedness last evening. Similar symptoms experienced the prior night. No chest pains or palpitations. No fevers or chills. Symptoms resolved by morning but mild orthostatic lightheadedness persists. He is tolerating PD well. Effluent is clear. No abdominal pain or discomfort. Herb does not have fluid retention or edema. He is breathing comfortably. He is non-oliguric. Appetite is good. No signs of bleeding reported. Review of Systems Review of Systems: All systems reviewed & are unremarkable except as noted in HPI & below Physical Exam Constitutional: WD/WN, vitals as above no acute distress Eyes: + anicteric sclerae Neck: large hematoma right side Respiratory: Auscultation: lungs clear to auscultation bilaterally Cardiovascular: Rate/Rhythm: regular rate and regular rhythm Heart Sounds: normal S1 and normal S2 Extremities: + AV fistula (left BC AVF with thrill and bruit); no edema Gastrointestinal (Abdomen): Inspection/Auscultation: abdomen normal to inspection Percussion/Palpation: abdomen soft; abdomen nontender PD catheter site with no erythema, discharge, tenderness Skin: no rashes, warm and dry Neurologic: no focal motor deficits Psychiatric: Orientation: alert and oriented x 3 Genitourinary: Lux with clear yellow urine Results & Data Vital Signs (Past 12 Hours) Vital Signs Temp Pulse Pulse Resp BP BP Pulse Ox 10/06/24 11:06 36.7 C 74 18 126/49 L 95 10/06/24 08:29 36.8 C 84 18 10/06/24 07:49 79 10/06/24 07:48 36.8 C 84 18 138/56 L 96 10/06/24 02:59 36.6 C 64 18 135/73 95 O2 Del Method 10/06/24 11:06 Room Air 10/06/24 08:29 10/06/24 07:49 10/06/24 07:48 Room Air 10/06/24 02:59 Room Air Laboratory Results Laboratory Results - last 24 hr 10/05/24 10/05/24 10/06/24 16:22 19:56 06:21 WBC 8.01 RBC 2.52 L Hgb 7.8 L Hct 24.1 L MCV 95.6 MCH 31.0 MCHC 32.4 RDW Std Deviation 49.6 H RDW Coeff of Severiano 14.8 H Plt Count 192 MPV 10.1 Absolute Nucleated RBC 0.03 Nucleated RBC % (auto) 0.4 Sodium 136 Potassium 3.2 L Chloride 96 L Carbon Dioxide 32 Anion Gap 8 BUN 63 H Creatinine 6.00 H* Est Cr Clr Drug Dosing 12.7 eGFR 9.43 BUN/Creatinine Ratio 10.5 Glucose 171 H POC Glucose 149 H 203 H Calcium 8.6 Phosphorus 4.7 Magnesium 2.1 Albumin 3.2 L 10/06/24 10/06/24 07:19 11:01 WBC RBC Hgb Hct MCV MCH MCHC RDW Std Deviation RDW Coeff of Severiano Plt Count MPV Absolute Nucleated RBC Nucleated RBC % (auto) Sodium Potassium Chloride Carbon Dioxide Anion Gap BUN Creatinine Est Cr Clr Drug Dosing eGFR BUN/Creatinine Ratio Glucose POC Glucose 187 H 152 H Calcium Phosphorus Magnesium Albumin PG Care Time/CCT Total # of Minutes Spent Total Time Spent with Patient: Total time spent is greater than 50% in coordination of care (as documented) at patient's floor/unit and/or counseling patient: Coding Level of Care Code 42436 SUB INP/OBS CARE 3/50MIN Diagnoses End stage renal disease N18.6 Complex renal cyst N28.1 Acute blood loss as cause of postoperative anemia D62 Peritoneal dialysis catheter in place Z99.2
[2024-10-06] MEDS: IRON SUCROSE 200 MG in SODIUM CHLORIDE 0.9% 100 ML IV ONE (14:44)
[2024-10-07 02:40] VITALS: TEMP 97.7
[2024-10-07 07:17] LABS: Hematocrit (blood only) 24.6 % (42.0-52.0); Hemoglobin 7.8 g/dl (14.0-18.0); Mean Corpuscular Hemoglobin 30.6 pg (25.0-34.0); Mean Corpuscular Hgb Conc 31.7 g/dL (32.0-36.0); Mean Corpuscular Volume 96.5 fL (80.0-100.0); Nucleated RBC # (auto) 0.02 K/uL (0.00-0.12); Nucleated RBC % (auto) 0.2 %; Platelet Count 178 K/uL (130-400); RDW Coefficient of Variation 15.3 % (11.5-14.5); RDW Standard Deviation 51.8 fL (36.4-46.3); Red Blood Count 2.55 M/uL (4.70-6.10); White Blood Count 8.27 K/ul (4.8-10.8)
[2024-10-07 07:57] LABS: BUN Creatinine Ratio 9.7 (10-20); Calcium 8.4 mg/dl (8.6-10.3); Creatinine Clr Calc Pharmacy 13.6 ml/min; Magnesium 2.1 mg/dl (1.7-2.4); Phosphorus 5.2 mg/dl (2.5-4.9); Potassium 3.3 mmol/L (3.5-5.1)
--- NOTE | 2024-10-07 11:11 | Nephrology Progress Note ---
Date of Service October 07, 2024 Assessment & Plan (1) End stage renal disease: Plan: Attributed to DKD and vascular disease. Maintained on PD since May 2024. Tolerating PD well. Volume status controlled. Adequate clearance. Continue CCPD per home Rx. 4 exchanges, 2 L fill volume, 2.5% Delflex, Fill 10 minutes/dwell 90 minutes/drain 20 minutes, EDW 95 kg. Continue Bumex to encourage UOP. Renvela 800 mg with each meal. Elizabeth diet. (2) Complex renal cyst: Plan: Outpatient follow up. (3) Acute blood loss as cause of postoperative anemia: Plan: Hemoglobin stable. Additional 200 mg IV Venofer provided today. Epogen 07195 units provided October 03. (4) Peritoneal dialysis catheter in place: Admission and Anticipated Discharge Date Admission Date: September 26, 2024 Subjective Herb feels well this AM. No complaints this AM. Lightheadedness improved. Herb feels well this AM. Tolerated PD without complications. Hopes to be discharged home today. Review of Systems Review of Systems: All systems reviewed & are unremarkable except as noted in HPI & below Physical Exam Constitutional: WD/WN, vitals as above no acute distress Eyes: + anicteric sclerae Respiratory: Auscultation: lungs clear to auscultation bilaterally Cardiovascular: Rate/Rhythm: regular rate and regular rhythm Heart Sounds: normal S1 and normal S2 Extremities: + AV fistula (left BC AVF with thrill and bruit); no edema Gastrointestinal (Abdomen): Inspection/Auscultation: abdomen normal to inspection Percussion/Palpation: abdomen soft; abdomen nontender Skin: no rashes, warm and dry Neurologic: no focal motor deficits Psychiatric: Orientation: alert and oriented x 3 Results & Data Vital Signs (Past 12 Hours) Vital Signs Temp Pulse Pulse Resp BP Pulse Ox O2 Del Method 10/07/24 08:37 36.5 C 74 18 10/07/24 08:07 36.5 C 74 18 147/61 H 97 Room Air 10/07/24 07:05 69 10/07/24 02:39 36.5 C 68 18 129/62 93 Room Air 10/06/24 23:11 36.6 C 70 18 125/56 L 96 Room Air Laboratory Results Laboratory Results - last 24 hr 10/06/24 10/06/24 10/07/24 16:35 20:15 06:29 WBC 8.27 RBC 2.55 L Hgb 7.8 L Hct 24.6 L MCV 96.5 MCH 30.6 MCHC 31.7 L RDW Std Deviation 51.8 H RDW Coeff of Severiano 15.3 H Plt Count 178 MPV 10.0 Absolute Nucleated RBC 0.02 Nucleated RBC % (auto) 0.2 Sodium 139 Potassium 3.3 L Chloride 99 Carbon Dioxide 31 Anion Gap 9 BUN 55 H Creatinine 5.68 H* D Est Cr Clr Drug Dosing 13.6 eGFR 10.07 BUN/Creatinine Ratio 9.7 L Glucose 104 H POC Glucose 291 H 243 H Calcium 8.4 L Phosphorus 5.2 H Magnesium 2.1 10/07/24 07:16 WBC RBC Hgb Hct MCV MCH MCHC RDW Std Deviation RDW Coeff of Severiano Plt Count MPV Absolute Nucleated RBC Nucleated RBC % (auto) Sodium Potassium Chloride Carbon Dioxide Anion Gap BUN Creatinine Est Cr Clr Drug Dosing eGFR BUN/Creatinine Ratio Glucose POC Glucose 128 H Calcium Phosphorus Magnesium PG Care Time/CCT Total # of Minutes Spent Total Time Spent with Patient: Total time spent is greater than 50% in coordination of care (as documented) at patient's floor/unit and/or counseling patient: Coding Level of Care Code 41139 SUB INP/OBS CARE 3/50MIN Diagnoses End stage renal disease N18.6 Complex renal cyst N28.1 Acute blood loss as cause of postoperative anemia D62 Peritoneal dialysis catheter in place Z99.2
[2024-10-07 12:40] VITALS: O2SAT 95
[2024-10-07] MEDS: IRON SUCROSE 200 MG in SODIUM CHLORIDE 0.9% 100 ML IV ONE (12:56)
[2024-10-07] MEDS ORDERED: STROKE PATIENT DISCHARGE STA (15:13)
[2024-10-07 15:25] VITALS: BP 110/60; PULSE 65
--- NOTE | 2024-10-07 16:23 | Discharge Summary ---
Date of Service October 07, 2024 Admission HPI Per Admitting Provider 69-year-old male with past medical history significant for end-stage renal disease on peritoneal dialysis, hypertension, hyperlipidemia, history of PE on chronic Coumadin, type 2 diabetes, peripheral vascular disease, CHF presents with right ocular stroke. Patient was admitted on 08/30/2024 with left eye vision loss , outpatient ophthalmology found to have central artery occlusion and patient was admitted to hospital. Imaging studies showed high-grade stenosis of the bilateral internal and external carotid arteries. MRI showed chronic small vessel disease otherwise unremarkable. Patient was already on aspirin and Plavix as added. On 09/19/2024 patient had left transcarotid artery revascularization and there is a plan to do on the right side . Patient was discharged on aspirin and Brilinta and not to stop until 30 days after carotid procedure. Last Tuesday patient noticed some vision change in the right eye and said it was getting more blurred on Tuesday. 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 He says from his left eye currently could not see anything. Right eye could see something but could not read and and also very blurry. Denies any pain in the eyes. No headache. Sometimes feels dizzy. Has some cough. No runny nose. Has some sore throat. Denies any chest pain. But having some shortness of breath on exertion. Appetite is okay. No difficulty swallowing. No nausea. No abdominal pain. Moves bowels okay. Makes urine. Denies any blood in stools or black stools. Hemodynamics are okay. Past medical history. As mentioned above Past surgical history. EGD. Right foot surgery. Lumbar back surgery. Heart catheterization. Colonoscopy. Bilateral hip replacement with history of tonsillectomy. Social history. No smoking. No alcohol. No drug use. Family history. Father had hypertension. Diabetes. Heart disease. Dementia. Mother had diabetes. Brother had cancer. Admission Exam Per Admitting Provider General- Not in distress Head- atraumatic Eyes- PERRL, EOMI, anicteric ENT- oropharynx clear Neck- supple, no JVD. Lungs- clear to auscultation no wheezing or crackles Heart- regular rhythm; no murmur, no gallop. Abdomen- normal bowel sounds, soft, nontender, no distension Extremities- no pretibial edema, no erythema seen Neuro- alert, oriented PERRL, EOMI; no facial palsy; no dysarthria; power 5/5 bilaterally; no pronator drift . Skin- warm & dry Principal Diagnosis Strokelike symptoms Right ocular stroke s/p vascular surgery Acute blood loss anemia, post-op Discharge Exam General: Alert, oriented. obese M, chronically ill appearing, in NAD HEENT: decreased vision in both eyes, + neck hematoma (post-surgical), ecchymosis CV: RRR Resp: Breath sounds decreased bilaterally, no increased effort of breathing Abdomen: Soft, nontender, obese Extremities: minimal edema in lower extremities bilaterally. Skin: warm dry Discharge Data Allergies Allergy/AdvReac Type Severity Reaction Status Date / Time atorvastatin AdvReac Intermediate Muscle Verified 09/25/24 22:07 aches bupropion [From Wellbutrin] AdvReac Intermediate Vivid Verified 09/25/24 22:07 dreams, hallucinations [id number]-[id number]-KtO Reductase AdvReac Intermediate Body aches Verified 09/25/24 22:07 Inhibitor [Lzwjnfv-Cfb-Tzc Reductase Inhibitor] Consultations 09/25/24 21:34 ED Decision to Admit Stat 09/26/24 02:59 Consult Cardiology Routine 09/26/24 08:00 Consult Nephrology Routine Consult Neurology Routine Consult Vascular Surgery Routine 10/01/24 12:48 Consult Die Try Out Worker Routine Procedures Performed Operation Date: 10/01/24 08:00 Actual Procedures p Right Transcarotid Artery Revascularization(Right) - Herb Scott MD Ordered Studies 09/25/24 20:18 CT head/brain wo con Stat 09/25/24 20:22 CT angio neck with con Stat 09/25/24 20:23 CT angio head w con Stat 09/26/24 02:26 MR brain wo con Urgent 09/26/24 08:04 CT chest diagnostic wo con Urgent 09/26/24 14:09 CT head/brain wo con Stat 10/01/24 07:04 EV angio carotid cerv RT Routine US EV guide vascular access Routine 10/02/24 08:00 US arterial duplex UE RT Routine 10/03/24 14:05 CT abdomen pelvis wo/w con Urgent 10/04/24 06:07 US venous doppler LE BI Urgent Hospital Course (1) Stroke-like symptoms: Plan Pt is a 69-year-old male with past medical history significant for end-stage renal disease on peritoneal dialysis, hypertension, hyperlipidemia, history of PE on chronic Coumadin, type 2 diabetes, peripheral vascular disease, CHF who presents with right ocular stroke. Patient was admitted on 08/30/2024 with left eye vision loss, outpatient ophthalmology found to have central artery occlusion and patient was admitted to hospital. Imaging studies showed high-grade stenosis of the bilateral internal and external carotid arteries. 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 stroke protocol with MRI scan, echo Neurochecks Telemetry Neurology consulted, appreciate recs Vascular surgery consulted, appreciate recs 09/26- pt with worsening vision, repeat stat head CT and chest XRAY- no acute change. Holding IV heparin 09/27- to have R TCAR on Tuesday, per Vascular continue brillinta, aspirin and statin 09/28- stable 09/29- stable 09/30- TCAR with vascular in the AM, NPO after midnight 10/01- s/p R TCAR, stable post op, being monitored in the ICU 10/02- stable, cleared for discharge by vascular. Awaiting rehab placement. Continue Brilinta and aspirin. Warfarin still on hold. 10/03 Today had episode of dizziness when up from bed and SBP down to 70s Pt evaluated immediately at the bedside, while lying in bed BP improved to SBP 130s. Pt feeling well while lying in bed, denies any chest pain, shortness of breath, palpitations, denies any significant pain, sweats, dizziness. stat H&H obtained - and down to 6.4 Discussed with vasc. surgeon and hog cooler, and also with blood bank (as pt had reportedly poss. blood transfusion reaction - per blood bank no cause was found, per chart review pt received IV bumex - felt it was fluid overload reaction) -> ordered CT abd/pelvis scan to eval for bleed -> bleed ruled out FOBT - negative received epo from nephrology, also gave iv iron Attempted to blood transfuse again - pt unfortunately had reaction again - CXR obtained, Doppler ordered - negative for DVT, V/Q scan - negative Anemia Hemoglobin 7.7 Hemoglobin 8.5 recently Usually seems to be 9-10 range Will check stool for Hemoccult Iron studies, vitamin B12 folate levels Repeat H/H Holding anticoagulation as above 09/27- pt with attempt at blood transfusion yesterday but it was discontinued when he developed chest tightness and SOB. Hgb 8.1 today, improved from 7.2 on last check. Continue to monitor H/H 09/28-hgb down to 7.6, continue to monitor 09/29- hgb back up to 8.1 10/02- hgb down postop to 7.0. Issues with prior transfusion, will need diuresis before and after with blood transfusion per previous cardiology recs 10/03 BP down w/abulation and Hgb 6.9, on stat repeat Hgb 6.4 - FOBT ordered, CT abd/pelvis ordered. Vascular surgeon contacted and discussed with. attempting for blood transfusion again - discussed w/ blood bank 10/04 Hgb 7.2 (pt was not bale to finish blood transfusion, had reaction again as above) 10/05 Hgb 7.4 10/06 and 10/07 Hgb 7.8 Non-ST elevated GA HTN Troponin 2486 Denies chest pain EKG has some ST depressions in lateral leads Has shortness on exertion Patient has history of PE on Coumadin INR is 1.8 today Follow echo Hold heparin and warfarin at this time On amlodipine, hydralazine, Imdur and Coreg Cardiology consult for further recommendation 09/30- episode of chest pain overnight relived by nitro, appreciate further cardiology recs Complicated bronchitis vs. Possible Pneumonia Acute hypoxic respiratory Failure Chest XRAY from 09/30 noting infection Augmentin BID - finished course Hyperlipidemia On statin and fenofibrate History of PE Holding anticoagulation as above End-stage renal disease On peritoneal dialysis at home Continue home Bumex Nephrology consulted, appreciate further recs Diabetes Hold glipizide and home Lantus Lantus 5 daily and sliding scale Close monitor BPH On finasteride and Flomax Monitor for urinary retention Depression On Zoloft Total Time Total Time Spent Total Time Spent (In Minutes): 40 Discharge Plan Discharge Items Patient Disposition: Home - Home Health Services Reason For Visit: OCULAR STROKE Discharge Diagnosis: Strokelike symptoms Right ocular stroke s/p vascular surgery Acute blood loss anemia, post-op Activity: Per Instructions section Non-emergency contact: Primary Care Provider, Surgeon, Specialist and Actuary Call non-emergency contact if: you have any medication questions and your symptoms worsen Follow-up/Referrals: Herb Scott MD [Physician] - Asaf Younger MD [Primary Care Provider] - Diet: Carb Count or DM1, Dialysis Renal and Heart Healthy Diet Texture: Dental soft (bite-sized) Addtl Attending Provider Instructions: Follow up with your primary care doctor and vascular surgeon (Dr. Scott). Follow up with your hog cooler. Read instructions from your vascular surgeon in detail, below. Continue taking aspirin and brillinta as prescribed. Discuss with your health care providers if/ when to resume coumadin. Your hydralazine dose was changed to 50 mg three times a day. Recommend using compression stockings when not in bed. Addtl Daycare Assistant Provider Instructions: SPECIAL CARE INSTRUCTIONS: Diet: * You may return to previous diet. Medications: * Continue to take Aspirin, statin and brilinta as directed. Incision Care: * You may shower, but do not rub incision. You may let the warm soapy water run over it. Be sure to dry the incision well after bathing. * Do not shave directly over the incision until it is healed. * DO NOT IMMERSE THE INCISION IN A TUB/POOL/etc. UNTIL HEALED. Restrictions: * Do not drive for at least one week or if you are still taking any narcotic pain medication. * Do not lift anything heavier than a gallon of milk for one week after going home. Possible Complications: * Numbness - It is normal to have some numbness around the incision. Numbness can extend beyond the incision to areas of the neck, ear and face. The numbness is due to bruising of nerves during the surgery and will gradually improve over a period of months. * Hoarseness/Difficulty Speaking and Swallowing - The bruising of nerves in the neck can also cause a hoarse voice, difficulty speaking or swallowing. This may improve over time, HOWEVER, if it continues for more than a few days please contact our office ([phone]). * Excessive Swelling - There will be some swelling immediately after surgery which usually resolves within one week. If you notice that the swelling is getting worse, notify your surgeon ([phone]). * Drainage/Bleeding - If there is any drainage or bleeding, it should be a very small amount (less than a teaspoon per day). If you have excessive bleeding or drainage from the incision, call your surgeon ([phone]) right away. ACTIVATION OF EMERGENCY MEDICAL SYSTEM: Call 911, immediately, if you experience any of the following: Warning Signs and Symptoms of Stroke: * Sudden numbness or weakness of the face, arm or leg, especially on one side of the body * Sudden confusion, trouble speaking or understanding * Sudden trouble seeing in one or both eyes * Sudden trouble walking, dizziness, loss of balance or coordination * Sudden severe headache with no cause Do not delay calling 911 if you experience any warning signs or symptoms of a stroke. Delay in seeking medical attention may affect what treatments can be given to you. Risk Factors for Stroke: You can reduce your chances of stroke by working with your medical provider to adopt a healthy lifestyle. Some specific ways to lower your chance of stroke are: * If you are a smoker, now is the time to stop smoking cigarettes * If you are diabetic, improve the control of your blood sugars * Avoid excessive amounts of alcohol * Control high blood pressure * Lose weight if you are overweight * Be sure to lead an active lifestyle * Eat a healthy diet low in salt, cholesterol and fat You should know about other risk factors for stroke that you are unable to control. These include: * Age 55 years or older * Male gender * Certain racial groups: , or / * Family History of Stroke, Mini stroke or Heart Attack * Sickle Cell Disease You will be receiving a call from the Vascular Surgery Nurse after you are discharged. FOLLOW UP VISIT: It is important for you to keep your follow up appointments with your medical provider. Keep any scheduled doctor appointments. Call [phone] to schedule a follow up appointment if one not already scheduled. Pending Studies at Discharge: No Stand-Alone Forms: My [facility] [place], Smoking Cessation, Medications to Prevent Stroke Medications and DC Order Prescriptions: New hydralazine 50 mg Tablet 50 mg PO TID Qty: 60 0RF Continued amlodipine [Norvasc] 5 mg tablet 5 mg PO BID Qty: 180 3RF finasteride 5 mg tablet 5 mg PO QAM Qty: 90 3RF gabapentin 100 mg capsule 100 mg PO TID sertraline 100 mg tablet 100 mg PO PM rosuvastatin 20 mg tablet 20 mg PO QAM sevelamer HCl 800 mg tablet 800 mg PO TID Rx Instructions: must administer with a meal/food polyethylene glycol 3350 [Miralax] 17 gram/dose powder 17 g PO Q OTHER DAY glipizide 5 mg tablet 10 mg PO QAM Rx Instructions: extended release carvedilol [Coreg] 25 mg tablet 25 mg PO BID fenofibrate micronized 43 mg capsule 43 mg PO PM sertraline 50 mg tablet 50 mg PO PM insulin aspart U-100 [Novolog FlexPen U-100 Insulin] 100 unit/mL (3 mL) insulin pen 3 unit SUBCUT BID insulin glargine [Lantus Solostar U-100 Insulin] 100 unit/mL (3 mL) insulin pen 12 unit SUBCUT HS Retacrit 40,000 unit/mL solution 40,000 unit subcut MONTHLY bumetanide 2 mg tablet 4 mg PO BID sodium bicarbonate 650 mg tablet 650 mg PO BID aspirin 81 mg Tablet,Delayed Release (Dr/Ec) 81 mg PO PM isosorbide mononitrate 60 mg tablet extended release 24 hr 60 mg PO QAM tamsulosin 0.4 mg capsule 0.4 mg PO QAM Brilinta 90 mg tablet 90 mg PO BID Qty: 60 11RF Held warfarin 3 mg tablet 1.5 - 3 mg PO UD Hold Instructions: Resume on 10/11/24. discuss with your health care provider if/when to resume coumadin Rx Instructions: take 1 tablet by mouth tuesday, tuesday, Tuesday, take 1/2 tablet all other days Discontinued hydralazine 100 mg tablet 100 mg PO TID Qty: 270 3RF Discharge Orders: Discharge Order (Routine); Ordered 10/07/24 Ordered By: Kit Troy/Other Patient Handouts: Managing Type 2 Diabetes Admission Data Admit Date/Time: 09/26/24 01:48 Attending Provider: Kit Colunga Admit Provider: Shailesh Huber Primary Care Provider: Asaf Younger Other Providers: [facility]; Shailesh Huber; Federico Mills; Yary Caceres; Brian Li; Yary Tinoco; Daryn Bass; Mushtaq Fletcher; Refugio Chavez; Cruz Alonzo; Vilma Stringer; Domingo Blanc; Bandar Doran; Christiano Lord; Bj Pineda; Gayla Borrego; Mary Jo Linda; Cruz Lyons; Barbara Diamond; Herb Scott; Franky Becerril; Niranjan Sotelo; Edwar Trejo; Cy Zarate; Mona Clement; Rodrigue Terrell; Ashwini Mckeon; Juan Haney; Isabel Chou Other Interventions: Discharge Summary Assessment (RN) Last Done: 10/07/24 15:23
== END 2024-10-07 16:01 | disposition home health service (06) | DRG 981 ==
LOC: ED 19:56 → 2S 09-26 01:48 → SUATTDRO 09-26 01:48 → 2S 09-26 02:32 → 1E 10-01 09:46 → 2S 10-02 10:17
PROC: EV.TCAR (2024-10-01 08:00)

== ENCOUNTER 2024-10-09 14:25 | Inpatient (IN) ==
[2024-10-09 15:03] LABS: iSTAT Hemoglobin 8.2 g/dl (14.0-18.0); iSTAT Ionized Calcium 1.08 mmol/l (1.12-1.32); iSTAT Potassium 3.6 mmol/L (3.3-5.0)
[2024-10-09 15:19] LABS: Basophils # (auto) 0.04 K/uL (0.00-0.20); Basophils % (auto) 0.7 %; Eosinophils # (auto) 0.17 K/uL (0.00-0.50); Eosinophils % (auto) 2.8 %; Hematocrit (blood only) 26.1 % (42.0-52.0); Hemoglobin 8.4 g/dl (14.0-18.0); Immature Granulocytes # (auto) 0.02 K/uL (0.01-0.20); Immature Granulocytes % (auto) 0.3 %; Lymphocytes # (auto) 1.02 K/uL (1.20-3.40); Lymphocytes % (auto) 16.6 %; Mean Corpuscular Hemoglobin 30.9 pg (25.0-34.0); Mean Corpuscular Hgb Conc 32.2 g/dL (32.0-36.0); Mean Platelet Volume 9.8 fL (9.4-12.4); Monocytes % (auto) 9.8 %; Neutrophils # (auto) 4.29 K/uL (1.40-6.50); Neutrophils % (auto) 69.8 %; Platelet Count 205 K/uL (130-400); RDW Coefficient of Variation 15.8 % (11.5-14.5); RDW Standard Deviation 53.7 fL (36.4-46.3); Red Blood Count 2.72 M/uL (4.70-6.10); White Blood Count 6.14 K/ul (4.8-10.8)
[2024-10-09] MEDS: SODIUM CHLORIDE 0.9% 500 ML IV ONE (15:39)
--- NOTE | 2024-10-09 15:46 | XRay Report ---
XR chest 1V portable CLINICAL HISTORY: weak COMPARISON STUDY: Chest radiograph October 03, 2024. Chest CT September 26, 2024. FINDINGS: Lung volumes are normal. Lungs are clear. There is no pneumothorax or pleural effusion. The heart is mildly enlarged. Mediastinal contours are normal. There is no evidence for pulmonary edema. Old left-sided rib fractures are incidentally noted. IMPRESSION: No acute cardiopulmonary findings. ACT 112: Negative or not required by law. Electronically signed by: Kiran Franco M.D. 10/09/2024 3:45 PM
[2024-10-09 15:47] LABS: Albumin Level 3.3 gm/dl (3.4-5.0); Bilirubin,Total 0.5 mg/dl (0.2-1.0); Calcium 8.5 mg/dl (8.6-10.3); Potassium 3.6 mmol/L (3.5-5.1)
--- NOTE | 2024-10-09 15:52 | Emergency Department Note ---
Impression & Plan Near syncope, SOB (shortness of breath), Anemia, CRF (chronic renal failure), Elevated troponin, Recent cerebrovascular accident ED Provider Note NAME: SONIA GARCIA AGE: 69 SEX: M : 1955 ARRIVES VIA: Walk-In INFORMANT: [Patient][family] ED PROVIDER(S): [Oc Laurent MD] CHIEF COMPLAINT: Near syncope HISTORY OF PRESENT ILLNESS: The patient is a 69-year-old male who presents to the ER with dizziness, shortness of breath and near syncope when he sits or stands. Patient states he has not passed out but feels very close. He also feels some pain across the right side of the chest when the symptoms occur. Patient was recently in the hospital. He suffered a CVA. He did have right carotid surgery with stent placement. He was discharged from the hospital 2 days ago. He states that his hydralazine was decreased to half the dose that was typical. The decrease was made because of some low blood pressure. The patient does undergo peritoneal dialysis every day. He has had no issues with the dialysis itself. The fluid has remained clear. There is no abdominal pain. He has not had fever or cough or respiratory complaints. He does still make urine and has not noticed any cloudiness to the urine or burning with urination. PMHx/PSHx/Social Hx: See Below PHYSICAL EXAM: GENERAL: Patient is in no acute distress. HEENT: No acute trauma, normocephalic atraumatic, mucous membranes dry, no nasal congestion. NECK: No stridor, no adenopathy, no meningismus, trachea is midline. There is evidence for recent right carotid surgical work. LUNGS: Clear to auscultation bilaterally, no wheeze, no rhonchi, breath sounds equal. HEART: Subtle systolic murmur, regular rate and rhythm. Chest: There is contusion across the right chest wall consistent with the recent carotid surgery. ABDOMEN: Soft, nontender, no peritonitis. Peritoneal dialysis catheter noted. EXTREMITIES: No cyanosis, full range of motion of all the joints without pain or difficulty. No significant edema. NEUROLOGIC: Oriented x 3, no acute motor or sensory deficits, no focal weakness. SKIN: No jaundice, no diaphoresis. Pale. DIFFERENTIAL DIAGNOSIS: Hypotension, medication reaction, anemia, renal failure, infection, orthostasis, dysrhythmia, among others. EMERGENCY DEPARTMENT PROCEDURES: MEDICAL DECISION MAKING: There is no leukocytosis. The patient is anemic but his hemoglobin seems stable compared to recent testing. There was a normal platelet count. No coagulopathy. Patient's creatinine was quite high however, this is baseline given his need for peritoneal dialysis. No electrolyte abnormality in need of emergent correction. No concerning liver enzyme elevation. ECG showed a sinus rhythm with LVH, no ST elevation. Cardiac enzyme testing x 1 was somewhat elevated however, the value today was lower than recent testing. Urinalysis did not show findings of infection. Chest x-ray did not show pneumonia or CHF. On exam, patient seemed slightly dehydrated, he was awake, interactive, not toxic or febrile. Patient was given a 500 cc saline bolus. The patient very likely is suffering from orthostasis. His recent hospitalizations, his recent diagnoses, his medications are all contributing to his presentation. I do not think the patient is safe for discharge. He has almost lost consciousness a few times, I do think he requires monitoring, medication adjustment, observation. I spoke with the patient and case management, the on-call hospitalist was consulted. Prior/Outside records/notes reviewed: Discharge summary note from 10/07/2024 discussing his presentation, hospital course and discharge plan. ECG per my interpretation: Indication was near syncope. The ECG shows a sinus rhythm with a first-degree AV block and LVH. The rate is 66. There is no acute ST elevation, no PVCs. The QTc is 469. Continuous Cardiac Monitoring per my interpretation: An order was placed for continuous cardiac monitoring. The monitor shows a rate of 66 with sinus rhythm with a first-degree block. Imaging/x-ray results per my interpretation: Chest x-ray does not show CHF or pneumonia. Chronic Medical/Social conditions affecting care: Advanced age, recent hospital stay. Care/Management discussed with: Case management, the on-call hospitalist. Level of care consideration(s): After review of the information above and other included data: --I believe the patient requires escalation of care to admission DISPOSITION: Admission Past Med/Surg History Problem List Recent cerebrovascular accident (Acute) Elevated troponin (Acute) CRF (chronic renal failure) (Acute) Anemia (Acute) SOB (shortness of breath) (Acute) Near syncope (Acute) S/P vascular surgery Left carotid artery stenosis End stage renal disease PD every day - follows with neph dr. hidalgo Symptomatic stenosis of right carotid artery NSTEMI (non-ST elevated myocardial infarction) Vision loss of right eye Stroke-like symptoms (Acute) Pseudoaneurysm of artery of upper extremity Acute blood loss as cause of postoperative anemia Urinary retention Carotid artery stenosis, symptomatic Central artery occlusion of retina (Acute) Peritoneal dialysis catheter in place Pulmonary edema End-stage renal disease needing dialysis Dyslipidemia, goal LDL below 70 Lower urinary tract symptoms (LUTS) Encounter for pre-operative examination Complex renal cyst Chronic diastolic CHF (congestive heart failure) Left renal mass Under surveillance SOB (shortness of breath) 08/06/22 Anemia due to chronic kidney disease Baseline hgb 11-12 range per chart review Vitamin D deficiency Depression, unspecified Postlaminectomy syndrome Right foot drop PVD (peripheral vascular disease) Diabetes mellitus with neuropathy Obesity (Chronic) Statin intolerance (Chronic) Hyperlipidemia (Chronic) HTN (hypertension) (Chronic) Guillain Jean Baptiste syndrome 2012 Medical History Peritoneal dialysis catheter in situ PD every day - follows with neph dr. 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 > 50% stenosis external carotid arteries bilaterally admit to [facility]/ stroke like symptoms- d/c 09/09/24 Limb alert care status left arm Presence of arteriovenous fistula for hemodialysis Left Wrist Arteriovenous Fistula Creation BPH (benign prostatic hyperplasia) Foot drop, right Hx of cardiac arrhythmia reason pt had heart cath several yrs ago, unsure exactly what it was, controlled now per pt CHF (congestive heart failure) no longer follows with Dr. 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 Marshall/[place] - no longer sees Hx of colonoscopy Hx of bilateral hip replacements History of tonsillectomy Family History Brother Cancer Father Hypertension Diabetes Heart disease Dementia Mother Diabetes Social History Smoking Status: Never smoker Tobacco Type: Cigarettes Second Hand Exposure: No; Do You Dip or Chew Tobacco: No; Hx Alcohol Use: No Hx Substance Use: No Preferred Language: Kazakh Communication Ability: Effective Visual Impairment: Limited Hearing Ability: Normal Java Application Engineer Required: No Beliefs That Will Affect Care: None marital status: / Current Living Situation: Family Current Living Situation Comment: with daughter current occupational status: retired Feels Safe at Home: Yes Diet: low salt caffeine: Yes (1 coffee daily) Physical Activity Frequency: Does not Exercise Do you think of yourself as: straight/heterosexual Gender Identity: Male Assistive Devices: Cane and Walker Allergies Allergies Allergy/AdvReac Type Severity Reaction Status Date / Time atorvastatin AdvReac Intermediate Muscle Verified 10/09/24 16:33 aches bupropion [From Wellbutrin] AdvReac Intermediate Vivid Verified 10/09/24 16:33 dreams, hallucinations Weyipdi-QRM-BcM Reductase AdvReac Intermediate Body aches Verified 10/09/24 16:33 Inhibitor [Xgqpykf-Mnu-Ard Reductase Inhibitor] Home Meds Home Medications Medication Instructions Recorded Confirmed gabapentin 100 mg capsule 100 mg PO TID 03/26/20 10/09/24 sertraline 100 mg tablet 100 mg PO PM 05/22/21 10/09/24 fenofibrate micronized 43 mg 43 mg PO PM 08/06/22 10/09/24 capsule rosuvastatin 20 mg tablet 20 mg PO QAM 11/25/22 10/09/24 carvedilol 25 mg tablet (Coreg) 25 mg PO BID 12/31/22 10/09/24 sertraline 50 mg tablet 50 mg PO PM 09/22/23 10/09/24 warfarin 3 mg tablet 1.5 - 3 mg PO UD 09/22/23 10/09/24 aspirin 81 mg tablet,delayed 81 mg PO PM 02/24/24 10/09/24 release isosorbide mononitrate 60 mg 60 mg PO QAM 02/24/24 10/09/24 tablet,extended release 24 hr polyethylene glycol 3350 17 17 g PO Q OTHER DAY 04/23/24 10/09/24 gram/dose oral powder (Miralax) sevelamer HCl 800 mg tablet 800 mg PO TID 04/23/24 10/09/24 bumetanide 2 mg tablet 4 mg PO BID 09/06/24 10/09/24 epoetin brenda-epbx 40,000 unit/mL 40,000 unit subcut MONTHLY 09/06/24 10/09/24 injection solution (Retacrit) insulin aspart U-100 100 unit/mL 3 unit subcut BID 09/06/24 10/09/24 (3 mL) subcutaneous pen (Novolog FlexPen U-100 Insulin aspart) insulin glargine 100 unit/mL (3 12 unit subcut HS 09/06/24 10/09/24 mL) subcutaneous pen (Lantus Solostar U-100 Insulin) sodium bicarbonate 650 mg tablet 650 mg PO BID 09/06/24 10/09/24 tamsulosin 0.4 mg capsule 0.4 mg PO QAM 09/12/24 10/09/24 glipizide 10 mg tablet, extended 10 mg PO QAM 10/09/24 10/09/24 release 24 hr Previous Rx's Medication Instructions Recorded amlodipine 5 mg tablet (Norvasc) 5 mg PO BID #180 tabs 03/16/24 finasteride 5 mg tablet 5 mg PO QAM #90 tabs 07/11/24 ticagrelor 90 mg tablet (Brilinta) 90 mg PO BID #60 tabs 09/18/24 hydralazine 50 mg tablet 50 mg PO TID #60 tabs 10/06/24 Results & Data (ED) Vital Signs Vital Signs - 24 hr 10/09/24 14:27 10/09/24 14:38 10/09/24 14:54 Temperature 36.1 C L Temperature Source Temporal Artery Scan Pulse Rate 69 66 Pulse Rate [Apical] 67 Pulse Rhythm Regular Pulse Strength Normal Respiratory Rate 20 18 Respiratory Effort / Characteristics Non-Labored Spontaneous Non-Labored Spontaneous Respiratory Depth Normal Normal Respiratory Pattern Regular Blood Pressure [Right Arm] 112/54 L Blood Pressure Mean [Right Arm] 73 Blood Pressure Position [Right Arm] Sitting Pulse Oximetry 96 94 Oxygen Delivery Method Room Air Room Air Sepsis Recent Fever Within 48 Hours No Sepsis New/Unexplained Change in Mental Status N/A Sepsis Action Taken by Nursing No Action Required 10/09/24 15:06 10/09/24 15:09 10/09/24 17:05 Temperature Temperature Source Pulse Rate Pulse Rate [Apical] 71 Pulse Rhythm Pulse Strength Respiratory Rate 22 Respiratory Effort / Characteristics Respiratory Depth Respiratory Pattern Blood Pressure [Right Arm] 153/65 H Blood Pressure Mean [Right Arm] 94 Blood Pressure Position [Right Arm] Pulse Oximetry 99 99 97 Oxygen Delivery Method Room Air Room Air Room Air Sepsis Recent Fever Within 48 Hours Sepsis New/Unexplained Change in Mental Status Sepsis Action Taken by Detention Medications Current Medication List: was personally reviewed by me Laboratory Data Attestation: I reviewed the patient's lab results. 10/09/24 14:45 10/09/24 14:45 Lab Results 10/09/24 10/09/24 10/09/24 Range/Units 14:45 14:51 15:38 WBC 6.14 (4.8-10.8) K/ul RBC 2.72 L (4.70-6.10) M/uL Hgb 8.4 L (14.0-18.0) g/dl POC Hgb 8.2 L (14.0-18.0) g/dl Hct 26.1 L (42.0-52.0) % POC Hct 24 L (42-52) % MCV 96.0 (80.0-100.0) fL MCH 30.9 (25.0-34.0) pg MCHC 32.2 (32.0-36.0) g/dL RDW Std Deviation 53.7 H (36.4-46.3) fL RDW Coeff of Severiano 15.8 H (11.5-14.5) % Plt Count 205 (130-400) K/uL MPV 9.8 (9.4-12.4) fL Immature Gran % (Auto) 0.3 % Neut % (Auto) 69.8 % Lymph % (Auto) 16.6 % [place] % (Auto) 9.8 % Eos % (Auto) 2.8 % Baso % (Auto) 0.7 % Neut # (Auto) 4.29 (1.40-6.50) K/uL Lymph # (Auto) 1.02 L (1.20-3.40) K/uL [place] # (Auto) 0.60 H (0.11-0.59) K/uL Eos # (Auto) 0.17 (0.00-0.50) K/uL Baso # (Auto) 0.04 (0.00-0.20) K/uL Immature Gran # (Auto) 0.02 (0.01-0.20) K/uL PT 11.2 (9.0-12.0) Seconds INR 1.0 (0.9-1.1) APTT 27 (21-31) Seconds PTT Ratio 1.0 POC Sodium 136 (135-144) mmol/L Sodium 137 (136-145) mmol/L POC Potassium 3.6 (3.3-5.0) mmol/L Potassium 3.6 (3.5-5.1) mmol/L POC Chloride 97 L (101-112) mmol/L Chloride 98 (98-107) mmol/L Carbon Dioxide 28 (21-32) mmol/L POC Total CO2 24 (24-31) mmol/L Anion Gap 11 (3-11) POC Anion Gap 20.0 (16-25) mmol/L POC BUN 52 H (7-18) mg/dl BUN 58 H (6-23) mg/dl Creatinine 6.02 H* (0.6-1.4) mg/dl POC Creatinine 7.0 H* (0.6-1.3) mg/dl Est Cr Clr Drug Dosing 12.9 ml/min eGFR 9.39 BUN/Creatinine Ratio 9.6 L (10-20) Glucose 135 H (70-99(Fasting)) mg/dl POC Glucose (other) 135 H (70-99) mg/dl Calcium 8.5 L (8.6-10.3) mg/dl POC Ioniz Calcium Marycruz 1.08 L (1.12-1.32) mmol/l Magnesium 2.0 (1.7-2.4) mg/dl Total Bilirubin 0.5 (0.2-1.0) mg/dl AST 20 (13-39) U/L ALT 3 L (7-52) U/L Alkaline Phosphatase 56 (34-104) U/L Troponin I High Sens 101.2 H* (0-20) pg/ml Total Protein 6.0 (6.0-8.3) gm/dl Albumin 3.3 L (3.4-5.0) gm/dl Globulin 2.7 (2.5-4.0) gm/dl Albumin/Globulin Ratio 1.2 (0.9-2) Urine Color Urine Appearance (Clear) Urine pH (4.5-7.5) Ur Specific [place] (1.000-1.030) Urine Protein (Negative) Urine Glucose (UA) (Negative) Urine Ketones (Negative) Urine Blood (Negative) Urine Nitrite (Negative) Urine Bilirubin (Negative) Urine Urobilinogen (Negative) Ur Leukocyte Esterase (Negative) Urine WBC (Auto) (0-5) /hpf Urine RBC (Auto) (0-2) /hpf U Hyaline Cast (Auto) (0-2) /lpf U Epithel Cells (Auto) (0-2) /hpf Urine Bacteria (Auto) (None Seen) 10/09/24 Range/Units 16:59 WBC (4.8-10.8) K/ul RBC (4.70-6.10) M/uL Hgb (14.0-18.0) g/dl POC Hgb (14.0-18.0) g/dl Hct (42.0-52.0) % POC Hct (42-52) % MCV (80.0-100.0) fL MCH (25.0-34.0) pg MCHC (32.0-36.0) g/dL RDW Std Deviation (36.4-46.3) fL RDW Coeff of Severiano (11.5-14.5) % Plt Count (130-400) K/uL MPV (9.4-12.4) fL Immature Gran % (Auto) % Neut % (Auto) % Lymph % (Auto) % [place] % (Auto) % Eos % (Auto) % Baso % (Auto) % Neut # (Auto) (1.40-6.50) K/uL Lymph # (Auto) (1.20-3.40) K/uL [place] # (Auto) (0.11-0.59) K/uL Eos # (Auto) (0.00-0.50) K/uL Baso # (Auto) (0.00-0.20) K/uL Immature Gran # (Auto) (0.01-0.20) K/uL PT (9.0-12.0) Seconds INR (0.9-1.1) APTT (21-31) Seconds PTT Ratio POC Sodium (135-144) mmol/L Sodium (136-145) mmol/L POC Potassium (3.3-5.0) mmol/L Potassium (3.5-5.1) mmol/L POC Chloride (101-112) mmol/L Chloride (98-107) mmol/L Carbon Dioxide (21-32) mmol/L POC Total CO2 (24-31) mmol/L Anion Gap (3-11) POC Anion Gap (16-25) mmol/L POC BUN (7-18) mg/dl BUN (6-23) mg/dl Creatinine (0.6-1.4) mg/dl POC Creatinine (0.6-1.3) mg/dl Est Cr Clr Drug Dosing ml/min eGFR BUN/Creatinine Ratio (10-20) Glucose (70-99(Fasting)) mg/dl POC Glucose (other) (70-99) mg/dl Calcium (8.6-10.3) mg/dl POC Ioniz Calcium Marycruz (1.12-1.32) mmol/l Magnesium (1.7-2.4) mg/dl Total Bilirubin (0.2-1.0) mg/dl AST (13-39) U/L ALT (7-52) U/L Alkaline Phosphatase (34-104) U/L Troponin I High Sens (0-20) pg/ml Total Protein (6.0-8.3) gm/dl Albumin (3.4-5.0) gm/dl Globulin (2.5-4.0) gm/dl Albumin/Globulin Ratio (0.9-2) Urine Color Yellow Urine Appearance Clear (Clear) Urine pH 6.5 (4.5-7.5) Ur Specific [place] 1.014 (1.000-1.030) Urine Protein 3+ H (Negative) Urine Glucose (UA) 2+ H (Negative) Urine Ketones Negative (Negative) Urine Blood Negative (Negative) Urine Nitrite Negative (Negative) Urine Bilirubin Negative (Negative) Urine Urobilinogen Negative (Negative) Ur Leukocyte Esterase Negative (Negative) Urine WBC (Auto) 0-5 (0-5) /hpf Urine RBC (Auto) 0-2 (0-2) /hpf U Hyaline Cast (Auto) 3-5 H (0-2) /lpf U Epithel Cells (Auto) 3-5 H (0-2) /hpf Urine Bacteria (Auto) None Seen (None Seen) Administered Medications Discontinued Medications Sodium Chloride (Nss) 500 mls @ 999 mls/hr IV .Q31M ONE Stop: 10/09/24 16:00 Last Infusion: 10/09/24 16:43 Dose: Infused Documented By: Admin: 10/09/24 15:39 Dose: 999 mls/hr Documented By: NATALIA Imaging Data Radiologist's Impression: Chest X-Ray 10/09/24 15:16 XR chest 1V portable CLINICAL HISTORY: weak COMPARISON STUDY: Chest radiograph October 03, 2024. Chest CT September 26, 2024. FINDINGS: Lung volumes are normal. Lungs are clear. There is no pneumothorax or pleural effusion. The heart is mildly enlarged. Mediastinal contours are normal. There is no evidence for pulmonary edema. Old left-sided rib fractures are incidentally noted. IMPRESSION: No acute cardiopulmonary findings. ACT 112: Negative or not required by law. Electronically signed by: Kiran Franco M.D. 10/09/2024 3:45 PM Discharge Plan Visit Data Chief Complaint: Syncope Stated Complaint: DIZZINESS, BLACK OUT, ED Provider: Oc Laurent Discharge Problem: Near syncope, SOB (shortness of breath), Anemia, CRF (chronic renal failure), Elevated troponin, Recent cerebrovascular accident Patient Disposition: Admitted As Inpatient Condition: Fair Forms Stand Alone Forms: My [facility] [employer] Prescriptions Prescriptions: No Action amlodipine [Norvasc] 5 mg tablet 5 mg PO BID Qty: 180 3RF finasteride 5 mg tablet 5 mg PO QAM Qty: 90 3RF gabapentin 100 mg capsule 100 mg PO TID sertraline 100 mg tablet 100 mg PO PM Rx Instructions: TOTAL DOSE 150 MG--TAKES WITH 50 MG TAB. rosuvastatin 20 mg tablet 20 mg PO QAM sevelamer HCl 800 mg tablet 800 mg PO TID Rx Instructions: must administer with a meal/food polyethylene glycol 3350 [Miralax] 17 gram/dose powder 17 g PO Q OTHER DAY carvedilol [Coreg] 25 mg tablet 25 mg PO BID fenofibrate micronized 43 mg capsule 43 mg PO PM sertraline 50 mg tablet 50 mg PO PM Rx Instructions: TOTAL DOSE 150 MG--TAKES WITH 100 MG TAB. warfarin 3 mg tablet 1.5 - 3 mg PO UD Hold Instructions: Resume on 10/11/24. discuss with your health care provider if/when to resume coumadin Rx Instructions: ON HOLD take 1 tablet by mouth tuesday, tuesday, Tuesday, take 1/2 tablet all other days insulin aspart U-100 [Novolog FlexPen U-100 Insulin] 100 unit/mL (3 mL) insulin pen 3 unit SUBCUT BID insulin glargine [Lantus Solostar U-100 Insulin] 100 unit/mL (3 mL) insulin pen 12 unit SUBCUT HS Retacrit 40,000 unit/mL solution 40,000 unit subcut MONTHLY bumetanide 2 mg tablet 4 mg PO BID sodium bicarbonate 650 mg tablet 650 mg PO BID hydralazine 50 mg Tablet 50 mg PO TID Qty: 60 0RF aspirin 81 mg Tablet,Delayed Release (Dr/Ec) 81 mg PO PM isosorbide mononitrate 60 mg tablet extended release 24 hr 60 mg PO QAM tamsulosin 0.4 mg capsule 0.4 mg PO QAM Brilinta 90 mg tablet 90 mg PO BID Qty: 60 11RF glipizide 10 mg tablet extended release 24hr 10 mg PO QAM Referrals Referrals: Asaf Younger MD [Primary Care Provider] - Discharge Problem: Anemia Qualifiers: Anemia type: unspecified type Qualified Code(s): D64.9 - Anemia, unspecified CRF (chronic renal failure) Qualifiers: Chronic kidney disease stage: unspecified stage Qualified Code(s): N18.9 - Chronic kidney disease, unspecified
[2024-10-09 15:57] LABS: Albumin Globulin Ratio 1.2 (0.9-2); BUN Creatinine Ratio 9.6 (10-20); Creatinine Clr Calc Pharmacy 12.9 ml/min; Globulin 2.7 gm/dl (2.5-4.0)
[2024-10-09 16:08] LABS: Partial Thromboplastin Time 27 Seconds (21-31); Prothrombin Time 11.2 Seconds (9.0-12.0)
[2024-10-09 17:14] LABS: Appearance Urine Clear (Clear); Bacteria Urine Automated None Seen (None Seen); Bilirubin Urine Negative (Negative); Blood Urine Negative (Negative); Color Urine Yellow; Glucose Urine UA 2+ (Negative); Ketones Urine Negative (Negative); Leukocyte Esterase Urine Negative (Negative); Nitrite Urine Negative (Negative); Protein Urine 3+ (Negative); RBC Urine Automated 0-2 /hpf (0-2); Specific Gravity Urine 1.014 (1.000-1.030); Urobilinogen Urine Negative (Negative); WBC Urine Automated 0-5 /hpf (0-5); pH Urine 6.5 (4.5-7.5)
--- NOTE | 2024-10-09 19:09 | History & Physical Report ---
Date of Service October 09, 2024 Assessment & Plan (1) Near syncope: Plan: 69-year-old male with past medical history significant for end-stage renal disease on peritoneal dialysis, hypertension, hyperlipidemia, history of PE, type 2 diabetes, peripheral vascular disease, CHF, right occular stroke, and other problems below who presents to the ED for evaluation of lightheadedness and near syncope. Patient with complicated recent history as summarized below: 09/06-09/09: Admitted for left vision loss and strokelike symptoms. Patient was found to have a central retinal artery occlusion of the left eye. CTA neck showed high-grade stenosis of the bilateral internal and external carotid arteries. Patient was started on Plavix and discharged home with plans to return for TCAR. 09/19: s/p left TCAR, discharged home the following day. Plavix changed to Brili nta. 09/26-10/07: Presented for right visual loss. Found to have elevated troponin on presentation. Ultimately felt to be due to type II [place]/demand ischemia. Underwent right TCAR on 10/01. Had issues with anemia and PRBC transfusions were attempted however aborted due to reactions. Due to ongoing anemia, it was decided to discontinue Coumadin and for patient to continue on ASA and Brilinta. Patient also experienced issues with orthostasis and hydralazine was reduced to 50 mg TID (from 100mg TID). Note that patient is on several medications to cause orthostasis: 4 antihypertensives (carvedilol, amlodipine, hydralazine, isosorbide), bumex, finasteride, flomax, gabapentin, sertraline For now, will hold amlodipine and hydralazine and reduce carvedilol to 12.5 mg twice daily HS troponin 101 (much lower than previous), but will continue to trend Recent echo 09/26: EF 55 to 60%, grade 1 diastolic dysfunction, no significant valvular disease noted (2) Central artery occlusion of retina: (3) H/O transcarotid artery revascularization (TCAR): Plan: S/p left TCAR on 09/19 and right TCAR on 10/01 Continue Brilinta, ASA, statin (4) Anemia: Plan: Hgb 8.4, at recent baseline Note that during previous admission PRBC transfusion was attempted however aborted due to patient reaction (5) Chronic diastolic CHF (congestive heart failure): Plan: Appears euvolemic/ possibly mild hypovolemic given near syncopal event Continue [employer] Bumex for now (6) End-stage renal disease needing dialysis: (7) Peritoneal dialysis catheter in place: Plan: Nephrology consult for PD orders (8) Hx pulmonary embolism: Plan: Coumadin discontinued during recent admission due to ongoing anemia and needing to be on ASA and Brilinta given recent bilateral TCAR's (9) Diabetes mellitus with neuropathy: Plan: Hgb A1c 7.7 09/2024 NovoLog per protocol while hospitalized DVT PROPHYLAXIS SCDs due to recent issues with anemia Patient seen in collaboration with Dr. Valenzuela. I spent a total of 75 minutes coordinating, documenting, and providing care for this patient excluding time spent in the performance of separately billed services. This included personally reviewing all current laboratories and imaging studies, medication reconciliation, outpatient chart review, and discussion with specialists. History of Present Illness Chief Complaint: lightheadedness Primary Care Provider: Asaf Younger MD 69-year-old male with past medical history significant for end-stage renal disease on peritoneal dialysis, hypertension, hyperlipidemia, history of PE, type 2 diabetes, peripheral vascular disease, CHF, right occular stroke, and other problems below who presents to the ED for evaluation of lightheadedness and near syncope. Patient with complicated recent history as summarized below: 09/06-09/09: Admitted for left vision loss and strokelike symptoms. Patient was found to have a central retinal artery occlusion of the left eye. CTA neck showed high-grade stenosis of the bilateral internal and external carotid arteries. Patient was started on Plavix and discharged home with plans to return for TCAR. 09/19: s/p left TCAR, discharged home the following day. Plavix changed to Brillinta. 09/26-10/07: Presented for right visual loss. Found to have elevated troponin on presentation. Ultimately felt to be due to type II [place]/demand ischemia. Underwent right TCAR on 10/01. Had issues with anemia and PRBC transfusions were attempted however aborted due to reactions. Due to ongoing anemia, it was decided to discontinue Coumadin and for patient to continue on ASA and Brilinta. Patient also experienced issues with orthostasis and hydralazine was reduced to 50 mg TID (from 100mg TID). Patient reports he had been feeling well up until this morning. States that he woke up feeling in his usual state of health. He then ate some breakfast and took his medications. He had gone to the bathroom and reports that whenever he was walking back, he started to feel very lightheaded and everything started to go dark. Patient reports he was able to sit down and did not fully lose consciousness however reports he was very close. He reports a brief episode of right-sided chest pain that he describes as a dull ache. Denies any associated shortness of breath or palpitations. No fevers or chills. Continues to perform peritoneal dialysis on a nightly basis without any issue. No abdominal pain, nausea, vomiting, diarrhea. Denies urinary symptoms. In the ED, initial BP 112/54. Patient was given 500 cc NSS with improvement. Labs unremarkable/at recent baseline. Allergies Allergy/AdvReac Type Severity Reaction Status Date / Time atorvastatin AdvReac Intermediate Muscle Verified 10/09/24 16:33 aches bupropion [From Wellbutrin] AdvReac Intermediate Vivid Verified 10/09/24 16:33 dreams, hallucinations Liuzijx-TIY-KyQ Reductase AdvReac Intermediate Body aches Verified 10/09/24 16:33 Inhibitor [Xmbjabi-Bri-Lts Reductase Inhibitor] Home Medications Medication Instructions Recorded Confirmed Type gabapentin 100 mg capsule 100 mg PO TID 03/26/20 10/09/24 History sertraline 100 mg tablet 100 mg PO PM 05/22/21 10/09/24 History fenofibrate micronized 43 mg 43 mg PO PM 08/06/22 10/09/24 History capsule rosuvastatin 20 mg tablet 20 mg PO QAM 11/25/22 10/09/24 History carvedilol 25 mg tablet (Coreg) 25 mg PO BID 12/31/22 10/09/24 History sertraline 50 mg tablet 50 mg PO PM 09/22/23 10/09/24 History warfarin 3 mg tablet 1.5 - 3 mg PO UD 09/22/23 10/09/24 History aspirin 81 mg tablet,delayed 81 mg PO PM 02/24/24 10/09/24 History release isosorbide mononitrate 60 mg 60 mg PO QAM 02/24/24 10/09/24 History tablet,extended release 24 hr amlodipine 5 mg tablet (Norvasc) 5 mg PO BID #180 tabs 03/16/24 10/09/24 Rx polyethylene glycol 3350 17 17 g PO Q OTHER DAY 04/23/24 10/09/24 History gram/dose oral powder (Miralax) sevelamer HCl 800 mg tablet 800 mg PO TID 04/23/24 10/09/24 History finasteride 5 mg tablet 5 mg PO QAM #90 tabs 07/11/24 10/09/24 Rx bumetanide 2 mg tablet 4 mg PO BID 09/06/24 10/09/24 History epoetin brenda-epbx 40,000 unit/mL 40,000 unit subcut MONTHLY 09/06/24 10/09/24 History injection solution (Retacrit) insulin aspart U-100 100 unit/mL 3 unit subcut BID 09/06/24 10/09/24 History (3 mL) subcutaneous pen (Novolog FlexPen U-100 Insulin aspart) insulin glargine 100 unit/mL (3 12 unit subcut HS 09/06/24 10/09/24 History mL) subcutaneous pen (Lantus Solostar U-100 Insulin) sodium bicarbonate 650 mg tablet 650 mg PO BID 09/06/24 10/09/24 History tamsulosin 0.4 mg capsule 0.4 mg PO QAM 09/12/24 10/09/24 History ticagrelor 90 mg tablet (Brilinta) 90 mg PO BID #60 tabs 09/18/24 10/09/24 Rx hydralazine 50 mg tablet 50 mg PO TID #60 tabs 10/06/24 10/09/24 Rx glipizide 10 mg tablet, extended 10 mg PO QAM 10/09/24 10/09/24 History release 24 hr Past Med/Surg History Problem List H/O transcarotid artery revascularization (TCAR) Recent cerebrovascular accident (Acute) Elevated troponin (Acute) CRF (chronic renal failure) (Acute) Anemia (Acute) SOB (shortness of breath) (Acute) Near syncope (Acute) S/P vascular surgery Left carotid artery stenosis End stage renal disease PD every day [id number]- follows with neph dr. hidalgo Symptomatic stenosis of right carotid artery NSTEMI (non-ST elevated myocardial infarction) Vision loss of right eye Stroke-like symptoms (Acute) Pseudoaneurysm of artery of upper extremity Acute blood loss as cause of postoperative anemia Urinary retention Carotid artery stenosis, symptomatic Central artery occlusion of retina (Acute) Peritoneal dialysis catheter in place Pulmonary edema End-stage renal disease needing dialysis Dyslipidemia, goal LDL below 70 Lower urinary tract symptoms (LUTS) Encounter for pre-operative examination Complex renal cyst Chronic diastolic CHF (congestive heart failure) Left renal mass Under surveillance SOB (shortness of breath) 08/06/22 Anemia due to chronic kidney disease Baseline hgb 11-12 range per chart review Vitamin D deficiency Depression, unspecified Postlaminectomy syndrome Right foot drop PVD (peripheral vascular disease) Diabetes mellitus with neuropathy Obesity (Chronic) Statin intolerance (Chronic) Hyperlipidemia (Chronic) HTN (hypertension) (Chronic) Guillain Jean Baptiste syndrome 2012 Medical History Peritoneal dialysis catheter in situ PD every day [id number]- follows with neph dr. hidalgo Hx of pulmonary edema PVD (peripheral vascular disease) SOB (shortness of breath) on exertion Vision loss, left eye admit to [facility], carotid occlusion, stroke r/o Hyperlipidemia Central artery occlusion of retina (09/07/24) Carotid artery disease Carotid doppler 11/17/23= 50-69% stenosis ICAs bilaterally. > 50% stenosis external carotid arteries bilaterally admit to [facility]/ stroke like symptoms- d/c 09/09/24 Limb alert care status left arm Presence of arteriovenous fistula for hemodialysis Left Wrist Arteriovenous Fistula Creation BPH (benign prostatic hyperplasia) Foot drop, right Hx of cardiac arrhythmia reason pt had heart cath several yrs ago, unsure exactly what it was, controlled now per pt CHF (congestive heart failure) no longer follows with Dr. 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 Beliefs That Will Affect Care: None marital status: / Current Living Situation: Family Current Living Situation Comment: with daughter current occupational status: retired Feels Safe at Home: Yes Diet: low salt caffeine: Yes (1 coffee daily) Physical Activity Frequency: Does not Exercise Do you think of yourself as: straight/heterosexual Gender Identity: Male Assistive Devices: Cane and Walker Physical Exam Constitutional: WD/WN, vitals as above no acute distress ENMT: external ear and nose normal, oropharynx normal Neck: right sided incision from previous TCAR with edema and ecchymosis Respiratory: normal respiratory effort, lungs clear to auscultation Cardiovascular: Rate/Rhythm: regular rate and regular rhythm Vessels: normal peripheral pulses Extremities: no edema Gastrointestinal (Abdomen): normal bowel sounds, soft, nontender, no hepatosplenomegaly + PD catheter - no surrounding erythema or drainage Skin: no rashes, warm and dry Neurologic: no focal motor deficits Psychiatric: A+Ox3, euthymic affect Results & Data Results & Data Vital Signs (Past 12 Hours) Vital Signs Temp Pulse Pulse Resp BP Pulse Ox O2 Del Method 10/09/24 19:00 77 19 164/65 H 95 Room Air 10/09/24 18:36 76 10/09/24 17:05 71 22 153/65 H 97 Room Air 10/09/24 15:09 99 Room Air 10/09/24 15:06 99 Room Air 10/09/24 14:54 66 10/09/24 14:38 67 18 112/54 L 94 Room Air 10/09/24 14:27 36.1 C L 69 20 96 Room Air Laboratory Results Short CBC 10/09/24 Range/Units 14:45 WBC 6.14 (4.8-10.8) K/ul Hgb 8.4 L (14.0-18.0) g/dl Hct 26.1 L (42.0-52.0) % Plt Count 205 (130-400) K/uL BMP 10/09/24 14:45 Sodium 137 Potassium 3.6 Chloride 98 Carbon Dioxide 28 BUN 58 H Creatinine 6.02 H* Glucose 135 H Calcium 8.5 L Liver Function 10/09/24 Range/Units 14:45 Total Bilirubin 0.5 (0.2-1.0) mg/dl AST 20 (13-39) U/L ALT 3 L (7-52) U/L Alkaline Phosphatase 56 (34-104) U/L Albumin 3.3 L (3.4-5.0) gm/dl Urine 10/09/24 Range/Units 16:59 Urine Color Yellow Urine Appearance Clear (Clear) Urine pH 6.5 (4.5-7.5) Ur Specific [place] 1.014 (1.000-1.030) Urine Protein 3+ H (Negative) Urine Glucose (UA) 2+ H (Negative) Diagnostic Findings Chest X-Ray 10/09/24 15:16 XR chest 1V portable CLINICAL HISTORY: weak COMPARISON STUDY: Chest radiograph October 03, 2024. Chest CT September 26, 2024. FINDINGS: Lung volumes are normal. Lungs are clear. There is no pneumothorax or pleural effusion. The heart is mildly enlarged. Mediastinal contours are normal. There is no evidence for pulmonary edema. Old left-sided rib fractures are incidentally noted. IMPRESSION: No acute cardiopulmonary findings. ACT 112: Negative or not required by law. Electronically signed by: Kiran Farnco M.D. 10/09/2024 3:45 PM Supervising Physician Co-Signing Physician Notes Patient seen and examined independently. Discussed with Chari YEBOAH. Patient with recent hospitalization for multiple issues presents to the hospital for concern of orthostatic hypotension. He is on multiple vasodilators which can contribute to the symptoms including amlodipine, hydralazine, isosorbide mononitrate, tamsulosin. He is also on bumetanide and Coreg as well. Discontinue hydralazine and amlodipine, decrease Coreg to 12.5 twice daily. Will monitor orthostatic vitals every 6 hours. PT OT evaluation. Nephrology consulted for comanagement I have reviewed the advanced practitioner's documentation, and I agree with, and take responsibility for the plan of care I spent a total of 30 minutes coordinating, documenting, and providing care for this patient excluding time spent in the performance of separately billed services. All of the aforementioned completed while collaborating with the assigned advanced practitioner for a full treatment plan (4) Anemia Anemia type: unspecified type Qualified Code(s): D64.9 - Anemia, unspecified
[2024-10-09] MEDS ORDERED: CARBOHYDRATES FOR HYPOGLYCEMIA PO PRN (20:24)
[2024-10-09] MEDS ORDERED: GLUCOSE 40% GEL 15 GM TUBE PO PRN (20:24)
[2024-10-09] MEDS ORDERED: ACETAMINOPHEN 325 MG TAB PO PRN (20:24)
[2024-10-09] MEDS ORDERED: GLUCOSE 10 TAB/TUBE PO PRN (20:24)
[2024-10-09] MEDS ORDERED: GLUCAGON FOR INJ 1 MG VIAL SQ PRN (20:24)
[2024-10-09] MEDS ORDERED: DEXTROSE 50% 50 ML SYRINGE IV PRN (20:24)
[2024-10-09] MEDS: INSULIN ASPART PER UNIT CHARGE SC SCH (21:31)
[2024-10-09] MEDS: POLYETHYLENE (MIRALAX) 17 GM PACK PO SCH (21:35)
[2024-10-09] MEDS: BUMETANIDE 1 MG TAB PO SCH (21:36)
[2024-10-09] MEDS: SODIUM BICARBONATE 650 MG TAB PO SCH (21:37)
[2024-10-09] MEDS: SERTRALINE HCL 100 MG TABLET PO SCH (21:37)
[2024-10-09] MEDS: ASPIRIN 81 MG ECTAB PO SCH (21:37)
[2024-10-09] MEDS: SEVELAMER CARBONATE 800 MG TAB PO SCH (21:37)
[2024-10-09] MEDS: SERTRALINE HCL 50 MG TABLET PO SCH (21:37)
[2024-10-09] MEDS: FENOFIBRATE NANOCRYSTALLIZED 48 MG TABLET PO SCH (21:37)
[2024-10-09] MEDS: GABAPENTIN 100 MG CAP PO SCH (21:37)
[2024-10-09] MEDS: carvediloL 12.5 MG TAB PO SCH (21:37)
[2024-10-09] MEDS: TICAGRELOR 90 MG TAB PO SCH (21:47)
[2024-10-10 06:38] LABS: Hematocrit (blood only) 25.1 % (42.0-52.0); Mean Corpuscular Hemoglobin 30.8 pg (25.0-34.0); Mean Corpuscular Hgb Conc 31.9 g/dL (32.0-36.0); Mean Corpuscular Volume 96.5 fL (80.0-100.0); Mean Platelet Volume 9.7 fL (9.4-12.4); Platelet Count 180 K/uL (130-400); RDW Coefficient of Variation 15.6 % (11.5-14.5); White Blood Count 5.57 K/ul (4.8-10.8)
[2024-10-10 07:18] LABS: BUN Creatinine Ratio 9.9 (10-20); Calcium 8.4 mg/dl (8.6-10.3); Creatinine Clr Calc Pharmacy 12.4 ml/min; Potassium 3.4 mmol/L (3.5-5.1)
[2024-10-10] MEDS: FINASTERIDE 5 MG TAB PO SCH (08:25)
[2024-10-10] MEDS: ROSUVASTATIN CALCIUM 20 MG TAB PO SCH (08:25)
[2024-10-10] MEDS: TAMSULOSIN HCL 0.4 MG CAP PO SCH (08:27)
[2024-10-10] MEDS: ISOSORBIDE MONO EXTENDED REL 60 MG TABCR PO SCH (08:27)
[2024-10-10] MEDS: amLODIPine BESYLATE 5 MG TAB PO SCH (10:09)
[2024-10-10] MEDS: IRON SUCROSE 200 MG in SODIUM CHLORIDE 0.9% 100 ML IV ONE (10:09)
--- NOTE | 2024-10-10 10:57 | Nephrology Consultation ---
Date of Consultation October 10, 2024 Assessment & Plan (1) End-stage renal disease needing dialysis: Maintained on CCPD nightly. We will provided CCPD this evening per home Rx. NCCPD orders were placed in the EMR and on-call HD RN notified. Dextrose concentration adjusted to reduce UF. Volume status acceptable and orthostatic changes in vitals persist. Outpatient Rx: 4 exchanges/night, 2 L fill volume, 2.5% Delflex, Fill 10 minutes/dwell 90 minutes/drain 20 minutes, EDW 95 kg. Bumex will be reduced to once daily. Medications are appropriate for kidney function. NaHCO3 may be stopped. (2) Anemia: Chronic, stable. Venofer 200 mg IV x 1 provided this AM. Epogen 40472 units SC now. (3) Diabetes mellitus with neuropathy: (4) HTN (hypertension): Amlodipine restarted at reduced dose of 5 mg daily. BP elevated but orthostatic changes persist. I suspect this is volume mediated. Carvedilol dose has also been reduced 25 mg -->12.5 mg BID. Continue to monitor orthostatic vitals. (5) Near syncope: History of Present Illness Reason for Consultation: ESRD on PD Requesting Physician: Troy Alonzo MD Attending Physician: Troy Alonzo MD History of Present Illness Mr. Herb Desai is a 69-year-old male with ESKD attributed to DKD. He performs CCPD through [facility] under the care of Dr. Hidalgo. Herb initially underwent L RC AVF creation 01/02 but later chose peritoneal dialysis. He underwent peritoneal dialysis catheter placement 04/05. Unfortunately the procedure was complicated by bladder perforation. The catheter was later reposit ioned and the bladder repaired. Mr. Desai started peritoneal dialysis 06/05. His outpatient dialysis prescription is CCPD 4 exchanges/night, 2 L fill volume, 2.5% Delflex, Fill 10 minutes/dwell 90 minutes/drain 20 minutes, EDW 95 kg. Mr. Desai denies any complications with dialysis. I reviewed records from [facility] and spoke to the home therapy RN this morning. Effluent has remained clear. He denies abdominal discomfort. Mr. Desai's medical history is also significant for HTN, hyperlipidemia, history of PE requiring chronic Coumadin anticoagulation, AODM, PVD, Guillain-[place] syndrome and CHF. On 08/2024, Mr. Desai developed sudden onset of L vision loss. He was seen by an family service center director and found to have central retinal artery occlusion. CTA of cerebral vessels revealed high grade bilateral ICA stenosis. Mr. Desai underwent L TCAR 09/19/24 and remained on Coumadin, asa, Plavix. He did well until 09/25/24 when he suffered acute R vision loss. He underwent right TCAR on 10/01/24. During the admission, he had notable anemia and PRBC transfusions were attempted however aborted due to infusion reactions. Due to ongoing anemia, it was decided to hold Coumadin and for patient to continue on ASA and Brilinta. Herb also experienced issues with orthostasis and hydralazine was reduced to 50 mg TID (from 100mg TID). PD dextrose concentration was reduced for a couple of days prior to discharge. S ymptoms improved but started to return throughout the day yesterday. Herb presented to the ER at [facility] last evening with significant lightheadedness and loss of vision. He describes notable orthostatic symptoms with continued documented orthostatic changes in vitals. Symptoms are slightly improved this AM but he continues to experience lightheadedness without syncope/presyncope. No chest pain or palpitations. IVF were provided overnight and PD was held. Allergies Allergy/AdvReac Type Severity Reaction Status Date / Time atorvastatin AdvReac Intermediate Muscle Verified 10/09/24 16:33 aches bupropion [From Wellbutrin] AdvReac Intermediate Vivid Verified 10/09/24 16:33 dreams, hallucinations Ufutfwe-EUH-BgJ Reductase AdvReac Intermediate Body aches Verified 10/09/24 16:33 Inhibitor [Vvsmlfk-Vvz-Set Reductase Inhibitor] Home Medications Medication Instructions Recorded Confirmed Type gabapentin 100 mg capsule 100 mg PO TID 03/26/20 10/09/24 History sertraline 100 mg tablet 100 mg PO PM 05/22/21 10/09/24 History fenofibrate micronized 43 mg 43 mg PO PM 08/06/22 10/09/24 History capsule rosuvastatin 20 mg tablet 20 mg PO QAM 11/25/22 10/09/24 History carvedilol 25 mg tablet (Coreg) 25 mg PO BID 12/31/22 10/09/24 History sertraline 50 mg tablet 50 mg PO PM 09/22/23 10/09/24 History warfarin 3 mg tablet 1.5 - 3 mg PO UD 09/22/23 10/09/24 History aspirin 81 mg tablet,delayed 81 mg PO PM 02/24/24 10/09/24 History release isosorbide mononitrate 60 mg 60 mg PO QAM 02/24/24 10/09/24 History tablet,extended release 24 hr amlodipine 5 mg tablet (Norvasc) 5 mg PO BID #180 tabs 03/16/24 10/09/24 Rx polyethylene glycol 3350 17 17 g PO Q OTHER DAY 04/23/24 10/09/24 History gram/dose oral powder (Miralax) sevelamer HCl 800 mg tablet 800 mg PO TID 04/23/24 10/09/24 History finasteride 5 mg tablet 5 mg PO QAM #90 tabs 07/11/24 10/09/24 Rx bumetanide 2 mg tablet 4 mg PO BID 09/06/24 10/09/24 History epoetin brenda-epbx 40,000 unit/mL 40,000 unit subcut MONTHLY 09/06/24 10/09/24 History injection solution (Retacrit) insulin aspart U-100 100 unit/mL 3 unit subcut BID 09/06/24 10/09/24 History (3 mL) subcutaneous pen (Novolog FlexPen U-100 Insulin aspart) insulin glargine 100 unit/mL (3 12 unit subcut HS 09/06/24 10/09/24 History mL) subcutaneous pen (Lantus Solostar U-100 Insulin) sodium bicarbonate 650 mg tablet 650 mg PO BID 09/06/24 10/09/24 History tamsulosin 0.4 mg capsule 0.4 mg PO QAM 09/12/24 10/09/24 History ticagrelor 90 mg tablet (Brilinta) 90 mg PO BID #60 tabs 09/18/24 10/09/24 Rx hydralazine 50 mg tablet 50 mg PO TID #60 tabs 10/06/24 10/09/24 Rx glipizide 10 mg tablet, extended 10 mg PO QAM 10/09/24 10/09/24 History release 24 hr Patient History Medical History Peritoneal dialysis catheter in situ PD every day [id number]- follows with neph dr. 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 > 50% stenosis external carotid arteries bilaterally admit to [facility]/ stroke like symptoms- d/c 09/09/24 Limb alert care status left arm Presence of arteriovenous fistula for hemodialysis Left Wrist Arteriovenous Fistula Creation BPH (benign prostatic hyperplasia) Foot drop, right Hx of cardiac arrhythmia reason pt had heart cath several yrs ago, unsure exactly what it was, controlled now per pt CHF (congestive heart failure) no longer follows with Dr. 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 Marshall/[place] - no longer sees Hx of colonoscopy Hx of bilateral hip replacements History of tonsillectomy Family History Brother Cancer Father Hypertension Diabetes Heart disease Dementia Mother Diabetes Social History Smoking Status: Never smoker Tobacco Type: Cigarettes Second Hand Exposure: No; Do You Dip or Chew Tobacco: No; Hx Alcohol Use: No Hx Substance Use: No Preferred Language: Pakistani Communication Ability: Effective Visual Impairment: Limited Hearing Ability: Normal Head Of Digital Required: No Beliefs That Will Affect Care: None marital status: / Current Living Situation: Alone Current Living Situation Comment: dtr lives next door current occupational status: retired Feels Safe at Home: Yes Safety Concerns: Feels Safe At This Time Diet: low salt caffeine: Yes (1 coffee daily) Physical Activity Frequency: Does not Exercise Do you think of yourself as: straight/heterosexual Gender Identity: Male Assistive Devices: Cane, Glasses and Walker Review of Systems Review of Systems: All systems reviewed & are unremarkable except as noted in HPI & below Constitutional: + fatigue Cardiovascular: + lightheadedness; no chest pain, no dys pnea on exertion, no palpitations, no syncope and no edema Physical Exam Constitutional: WD/WN, vitals as above no acute distress Eyes: + anicteric sclerae Respiratory: Auscultation: lungs clear to auscultation bilaterally Cardiovascular: Rate/Rhythm: regular rate and regular rhythm Heart Sounds: normal S1 and normal S2 Extremities: + AV fistula (left BC AVF with thrill and bruit); no edema Gastrointestinal (Abdomen): Inspection/Auscultation: abdomen normal to inspection Percussion/Palpation: abdomen soft; abdomen nontender Skin: no rashes, warm and dry Neurologic: no focal motor deficits Psychiatric: Orientation: alert and oriented x 3 Results & Data Vital Signs (Past 12 Hours) Vital Signs Temp Pulse Resp BP Pulse Ox O2 Del Method 10/10/24 10:07 71 132/85 10/10/24 06:01 36.8 C 71 16 191/72 H 97 Room Air 10/10/24 03:18 36.6 C 75 16 168/80 H 92 Room Air 10/09/24 23:04 36.9 C 76 18 161/79 H 95 Room Air Laboratory Results Laboratory Results - last 24 hr 10/09/24 10/09/24 10/09/24 14:45 14:51 15:38 WBC 6.14 RBC 2.72 L Hgb 8.4 L POC Hgb 8.2 L Hct 26.1 L POC Hct 24 L MCV 96.0 MCH 30.9 MCHC 32.2 RDW Std Deviation 53.7 H RDW Coeff of Severiano 15.8 H Plt Count 205 MPV 9.8 Immature Gran % (Auto) 0.3 Neut % (Auto) 69.8 Lymph % (Auto) 16.6 Morris % (Auto) 9.8 Eos % (Auto) 2.8 Baso % (Auto) 0.7 Neut # (Auto) 4.29 Lymph # (Auto) 1.02 L Morris # (Auto) 0.60 H Eos # (Auto) 0.17 Baso # (Auto) 0.04 Immature Gran # (Auto) 0.02 PT 11.2 INR 1.0 APTT 27 PTT Ratio 1.0 POC Sodium 136 Sodium 137 POC Potassium 3.6 Potassium 3.6 POC Chloride 97 L Chloride 98 Carbon Dioxide 28 POC Total CO2 24 Anion Gap 11 POC Anion Gap 20.0 POC BUN 52 H BUN 58 H Creatinine 6.02 H* POC Creatinine 7.0 H* Est Cr Clr Drug Dosing 12.9 eGFR 9.39 BUN/Creatinine Ratio 9.6 L Glucose 135 H POC Glucose POC Glucose (other) 135 H Calcium 8.5 L POC Ioniz Calcium Marycruz 1.08 L Magnesium 2.0 Total Bilirubin 0.5 AST 20 ALT 3 L Alkaline Phosphatase 56 Troponin I High Sens 101.2 H* Total Protein 6.0 Albumin 3.3 L Globulin 2.7 Albumin/Globulin Ratio 1.2 Urine Color Urine Appearance Urine pH Ur Specific [place] Urine Protein Urine Glucose (UA) Urine Ketones Urine Blood Urine Nitrite Urine Bilirubin Urine Urobilinogen Ur Leukocyte Esterase Urine WBC (Auto) Urine RBC (Auto) U Hyaline Cast (Auto) U Epithel Cells (Auto) Urine Bacteria (Auto) 10/09/24 10/09/24 10/10/24 16:59 21:23 05:53 WBC 5.57 RBC 2.60 L Hgb 8.0 L POC Hgb Hct 25.1 L POC Hct MCV 96.5 MCH 30.8 MCHC 31.9 L RDW Std Deviation 54.0 H RDW Coeff of Seveirano 15.6 H Plt Count 180 MPV 9.7 Immature Gran % (Auto) Neut % (Auto) Lymph % (Auto) Morris % (Auto) Eos % (Auto) Baso % (Auto) Neut # (Auto) Lymph # (Auto) Morris # (Auto) Eos # (Auto) Baso # (Auto) Immature Gran # (Auto) PT INR APTT PTT Ratio POC Sodium Sodium 138 POC Potassium Potassium 3.4 L POC Chloride Chloride 100 Carbon Dioxide 28 POC Total CO2 Anion Gap 10 POC Anion Gap POC BUN BUN 61 H Creatinine 6.19 H* POC Creatinine Est Cr Clr Drug Dosing 12.4 eGFR 9.08 BUN/Creatinine Ratio 9.9 L Glucose 121 H POC Glucose 217 H POC Glucose (other) Calcium 8.4 L POC Ioniz Calcium Marycruz Magnesium Total Bilirubin AST ALT Alkaline Phosphatase Troponin I High Sens Total Protein Albumin Globulin Albumin/Globulin Ratio Urine Color Yellow Urine Appearance Clear Urine pH 6.5 Ur Specific [place] 1.014 Urine Protein 3+ H Urine Glucose (UA) 2+ H Urine Ketones Negative Urine Blood Negative Urine Nitrite Negative Urine Bilirubin Negative Urine Urobilinogen Negative Ur Leukocyte Esterase Negative Urine WBC (Auto) 0-5 Urine RBC (Auto) 0-2 U Hyaline Cast (Auto) 3-5 H U Epithel Cells (Auto) 3-5 H Urine Bacteria (Auto) None Seen 10/10/24 07:41 WBC RBC Hgb POC Hgb Hct POC Hct MCV MCH MCHC RDW Std Deviation RDW Coeff of Severiano Plt Count MPV Immature Gran % (Auto) Neut % (Auto) Lymph % (Auto) Morris % (Auto) Eos % (Auto) Baso % (Auto) Neut # (Auto) Lymph # (Auto) Morris # (Auto) Eos # (Auto) Baso # (Auto) Immature Gran # (Auto) PT INR APTT PTT Ratio POC Sodium Sodium POC Potassium Potassium POC Chloride Chloride Carbon Dioxide POC Total CO2 Anion Gap POC Anion Gap POC BUN BUN Creatinine POC Creatinine Est Cr Clr Drug Dosing eGFR BUN/Creatinine Ratio Glucose POC Glucose 135 H POC Glucose (other) Calcium POC Ioniz Calcium Marycruz Magnesium Total Bilirubin AST ALT Alkaline Phosphatase Troponin I High Sens Total Protein Albumin Globulin Albumin/Globulin Ratio Urine Color Urine Appearance Urine pH Ur Specific [place] Urine Protein Urine Glucose (UA) Urine Ketones Urine Blood Urine Nitrite Urine Bilirubin Urine Urobilinogen Ur Leukocyte Esterase Urine WBC (Auto) Urine RBC (Auto) U Hyaline Cast (Auto) U Epithel Cells (Auto) Urine Bacteria (Auto) PG Care Time/CCT Total # of Minutes Spent Total Time Spent with Patient: Total time spent is greater than 50% in coordination of care (as documented) at patient's floor/unit and/or counseling patient: Coding Level of Care Code 51328 IN/OBS CONSULT LVL 5,80M Diagnoses End-stage renal disease needing dialysis N18.6; Z99.2 Anemia D64.9 Diabetes mellitus with neuropathy E11.40 HTN (hypertension) I10 Hypertension type: unspecified Near syncope R55 (4) HTN (hypertension) Hypertension type: unspecified Qualified Code(s): I10 - Essential (primary) hypertension
--- NOTE | 2024-10-10 14:23 | Hospitalist Progress Note ---
Date of Service October 10, 2024 Assessment & Plan (1) Near syncope: Plan 69-year-old male with past medical history significant for end-stage renal disease on peritoneal dialysis, hypertension, hyperlipidemia, history of PE, type 2 diabetes, peripheral vascular disease, CHF, right occular stroke, and other problems below who presents to the ED for evaluation of lightheadedness and near syncope. Patient with complicated recent history as summarized below: 09/06-09/09: Admitted for left vision loss and strokelike symptoms. Patient was found to have a central retinal artery occlusion of the left eye. CTA neck showed high-grade stenosis of the bilateral internal and external carotid arteries. Patient was started on Plavix and discharged home with plans to return for TCAR. 09/19: s/p left TCAR, discharged home the following day. Plavix changed to Brilinta. 09/26-10/07: Presented for right visual loss. Found to have elevated troponin on presentation. Ultimately felt to be due to type II TX/demand ischemia. Underwent right TCAR on 10/01. Had issues with anemia and PRBC transfusions were attempted however aborted due to reactions. Due to ongoing anemia, it was decided to discontinue Coumadin and for patient to continue on ASA and Brilinta. Patient also experienced issues with orthostasis and hydralazine was reduced to 50 mg TID (from 100mg TID). Near syncope: Orthostatic hypotension Note that patient is on several medications to cause orthostasis: 4 antihypertensives (carvedilol, amlodipine, hydralazine, isosorbide), bumex, finasteride, flomax, gabapentin, sertraline D/w nephro 10/10, will c/w low dose amlod, decrease bumex dose, ok w/ holding hydralazine for now. likely volume mediated, plan for changes w/ dialysis. c/t follow w/ monitoring of ortho vitals. b/l thigh high compression stockings, slow transition during change in position Fall precautions. Central artery occlusion of retina: H/O transcarotid artery revascularization (TCAR): S/p left TCAR on 09/19 and right TCAR on 10/01 Continue Brilinta, ASA, statin Anemia: Hgb 8.4 at presentation, at recent baseline. Plan for venofer and epogen today. Note that during previous admission PRBC transfusion was attempted however aborted due to patient reaction Chronic diastolic CHF (congestive heart failure): Appears euvolemic/ possibly mild hypovolemic given near syncopal event. c/w home meds as able. End-stage renal disease needing dialysis: Peritoneal dialysis catheter in place: Nephrology consult for PD orders Hx pulmonary embolism: Coumadin discontinued during recent admission due to ongoing anemia and needing to be on ASA and Brilinta given recent bilateral TCAR's Diabetes mellitus with neuropathy: Hgb A1c 7.7 09/2024. NovoLog per protocol while hospitalized DVT PROPHYLAXIS: SCDs due to recent issues with anemia pt/ot, cm to assist w/ dispo plan. Admission and Anticipated Discharge Date Admission Date: October 09, 2024 Subjective Patient was seen and examined at bedside. Patient was lying in bed, on room air, NAD, resting comfortably. Patient reports his orthostatic symptoms has gotten better slightly since presentation. Discussed with nephrology, plan to put him back on low-dose amlodipine and reduce Bumex to once daily. Plan to give him iron and Epogen. Physical Exam Physical Exam: GENERAL: Alert and oriented x3. NAD, on RA. HEENT: No pallor, no icterus. Pupils equal, round and reactive to light. Oral mucosa moist. NECK: No JVD, no neck masses. Rt TCAR incision appears healthy and healing well. some edema and ecchymoses noted in the area. HEART: S1 and S2 heard. Regular rate and rhythm. No murmur, no gallop. RESPIRATORY SYSTEM: Normal AP diameter. No accessory muscle use. No wheezing, no crackles. ABDOMEN: Soft, bowel sounds present, nontender, no distention. + PD catheter CENTRAL NERVOUS SYSTEM: No facial droop. Speech is clear. Obeys simple commands. Moves extremities. EXTREMITIES: No edema, no erythema seen. Results & Data Results & Data Vital Signs (Past 12 Hours) Vital Signs Temp Pulse Resp BP Pulse Ox O2 Del Method 10/10/24 12:04 36.7 C 71 22 149/77 H 97 Room Air 10/10/24 10:07 71 132/85 10/10/24 06:01 36.8 C 71 16 191/72 H 97 Room Air 10/10/24 03:18 36.6 C 75 16 168/80 H 92 Room Air
[2024-10-10] MEDS: EPOETIN ALFA 20,000 UNITS/ML VIAL SQ ONE (20:29)
[2024-10-10] MEDS: PROMETHAZINE 6.25 MG/50.25 ML BAG IV PRN (22:43)
[2024-10-10] MEDS: PROMETHAZINE 6.25 MG/50.25 ML BAG IV ONE (23:58)
[2024-10-11] MEDS: hydrALAZINE HCL 20 MG/ML VIAL IV ONE (00:16)
[2024-10-11 06:15] LABS: Hematocrit (blood only) 26.7 % (42.0-52.0); Hemoglobin 8.6 g/dl (14.0-18.0); Mean Corpuscular Hemoglobin 30.9 pg (25.0-34.0); Mean Corpuscular Hgb Conc 32.2 g/dL (32.0-36.0); Mean Platelet Volume 9.5 fL (9.4-12.4); Platelet Count 190 K/uL (130-400); RDW Coefficient of Variation 15.5 % (11.5-14.5); Red Blood Count 2.78 M/uL (4.70-6.10); White Blood Count 6.24 K/ul (4.8-10.8)
[2024-10-11 06:50] LABS: Calcium 8.9 mg/dl (8.6-10.3); Creatinine Clr Calc Pharmacy 12.4 ml/min; Phosphorus 5.4 mg/dl (2.5-4.9); Potassium 4.2 mmol/L (3.5-5.1)
[2024-10-11] MEDS: BUMETANIDE 1 MG TAB PO SCH (08:18)
--- NOTE | 2024-10-11 09:40 | Electrocardiogram Report ---
Test Reason : Blood Pressure : */* mmHG Vent. Rate : 66 BPM Atrial Rate : 66 BPM P-R Int : 216 ms QRS Dur : 132 ms QT Int : 448 ms P-R-T Axes : 15 4 151 degrees QTcB Int : 469 ms Sinus rhythm with 1st degree A-V block Left ventricular hypertrophy with QRS widening and repolarization abnormality ( R in aVL , [place] pr oduct ) Inferior infarct , age undetermined Abnormal ECG When compared with ECG of 29-Sep-2024 23:12, Inferior infarct is now Present Confirmed by Carter Lees ([id number]) on 10/11/2024 9:39:44 AM Referred By: REFERRED SELF Confirmed By: Carter Lees
--- NOTE | 2024-10-11 10:22 | Nephrology Progress Note ---
Date of Service October 11, 2024 Assessment & Plan (1) End-stage renal disease needing dialysis: Plan: Maintained on CCPD nightly. I will plan to continue 1.5% delflex solution. NCCPD orders were placed in the EMR and HD RN notified. Outpatient Rx: 4 exchanges/night, 2 L fill volume, 1.5-2.5% Delflex, Fill 10 minutes/dwell 90 minutes/drain 20 minutes, EDW 95 kg. Bumex has been reduced to once daily. Medications are appropriate for kidney function. NaHCO3 stopped. (2) Anemia: Plan: Chronic, stable. Venofer 200 mg IV x 1 provided yesterday Epogen 89973 units SC provided yesterday. (3) Diabetes mellitus with neuropathy: (4) HTN (hypertension): Plan: Amlodipine reduced to 5 mg daily. Hydralazine held. Carvedilol dose has also been reduced 25 mg -->12.5 mg BID. Encourage even to slightly positive fluid balance. (5) Near syncope: Admission and Anticipated Discharge Date Admission Date: October 09, 2024 Subjective No acute events overnight. Net positive following PD overnight. Alarms noted during treatment. Abdomen drained well this AM. Effluent is clear. No abdominal pain or discomfort. +BM this AM. Denies constipation. Overall, Herb reports improvement in symptoms of lightheadedness. No syncope or presyncope. No chest pains of palpitations. SBP continues to drop when he stands (~160-->111 mmHg this AM). BP reasonably controlled. Herb reports that he is lacking in some strength and that he has not done much walking but he feels reasonably well. He hesitated when asked if he felt strong enough to confidently return home and responded "I think so." Review of Systems Review of Systems: All systems reviewed & are unremarkable except as noted in HPI & below Physical Exam Constitutional: WD/WN, vitals as above no acute distress Eyes: + anicteric sclerae Respiratory: Auscultation: lungs clear to auscultation bilaterally Cardiovascular: Rate/Rhythm: regular rate and regular rhythm Heart Sounds: normal S1 and normal S2 Extremities: + AV fistula (left BC AVF with thrill and bruit); no edema Gastrointestinal (Abdomen): Inspection/Auscultation: abdomen normal to inspection Percussion/Palpation: abdomen soft; abdomen nontender Skin: no rashes, warm and dry Neurologic: no focal motor deficits Psychiatric: Orientation: alert and oriented x 3 Results & Data Vital Signs (Past 12 Hours) Vital Signs Temp Pulse Pulse Resp BP Pulse Ox O2 Del Method 10/11/24 06:35 36.6 C 79 20 165/45 H 97 Room Air 10/11/24 03:26 36.8 C 67 16 126/61 94 Room Air 10/11/24 01:23 73 10/11/24 00:44 159/64 H 10/11/24 00:09 163/90 H 10/10/24 23:16 36.9 C 72 16 175/68 H 96 Room Air Laboratory Results Laboratory Results - last 24 hr 10/10/24 10/10/24 10/10/24 11:36 16:09 20:15 WBC RBC Hgb Hct MCV MCH MCHC RDW Std Deviation RDW Coeff of Severiano Plt Count MPV Sodium Potassium Chloride Carbon Dioxide Anion Gap BUN Creatinine Est Cr Clr Drug Dosing eGFR BUN/Creatinine Ratio Glucose POC Glucose 251 H 79 176 H Calcium Phosphorus Magnesium 10/11/24 10/11/24 05:31 07:34 WBC 6.24 RBC 2.78 L Hgb 8.6 L Hct 26.7 L MCV 96.0 MCH 30.9 MCHC 32.2 RDW Std Deviation 54.0 H RDW Coeff of Severiano 15.5 H Plt Count 190 MPV 9.5 Sodium 140 Potassium 4.2 D Chloride 102 Carbon Dioxide 31 Anion Gap 7 BUN 62 H Creatinine 6.22 H* Est Cr Clr Drug Dosing 12.4 eGFR 9.03 BUN/Creatinine Ratio 10.0 Glucose 140 H POC Glucose 170 H Calcium 8.9 Phosphorus 5.4 H Magnesium 2.0 PG Care Time/CCT Total # of Minutes Spent Total Time Spent with Patient: Total time spent is greater than 50% in coordination of care (as documented) at patient's floor/unit and/or counseling patient: Coding Level of Care Code 27487 SUB INP/OBS CARE 3/50MIN Diagnoses End-stage renal disease needing dialysis N18.6; Z99.2 Anemia D64.9 Diabetes mellitus with neuropathy E11.40 HTN (hypertension) I10 Hypertension type: unspecified Near syncope R55 (4) HTN (hypertension) Hypertension type: unspecified Qualified Code(s): I10 - Essential (primary) hypertension
--- NOTE | 2024-10-11 15:22 | Hospitalist Progress Note ---
Date of Service October 11, 2024 Assessment & Plan (1) Near syncope: Plan 69-year-old male with past medical history significant for end-stage renal disease on peritoneal dialysis, hypertension, hyperlipidemia, history of PE, type 2 diabetes, peripheral vascular disease, CHF, right occular stroke, and other problems below who presents to the ED for evaluation of lightheadedness and near syncope. Patient with complicated recent history as summarized below: 09/06-09/09: Admitted for left vision loss and strokelike symptoms. Patient was found to have a central retinal artery occlusion of the left eye. CTA neck showed high-grade stenosis of the bilateral internal and external carotid arteries. Patient was started on Plavix and discharged home with plans to return for TCAR. 09/19: s/p left TCAR, discharged home the following day. Plavix changed to Brilinta. 09/26-10/07: Presented for right visual loss. Found to have elevated troponin on presentation. Ultimately felt to be due to type II NH/demand ischemia. Underwent right TCAR on 10/01. Had issues with anemia and PRBC transfusions were attempted however aborted due to reactions. Due to ongoing anemia, it was decided to discontinue Coumadin and for patient to continue on ASA and Brilinta. Patient also experienced issues with orthostasis and hydralazine was reduced to 50 mg TID (from 100mg TID). Near syncope: Orthostatic hypotension Note that patient is on several medications to cause orthostasis: 4 antihypertensives (carvedilol, amlodipine, hydralazine, isosorbide), bumex, finasteride, flomax, gabapentin, sertraline D/w nephro 10/10, will c/w low dose amlod, decreased bumex dose, ok w/ holding hydralazine for now and decreased dose of coreg. likely volume mediated, plan for changes w/ dialysis. c/t follow w/ monitoring of ortho vitals. b/l thigh high compression stockings, slow transition during change in position Fall precautions. Pt reports some improvement w/ dizziness w/ change in position await PT eval. Central artery occlusion of retina: H/O transcarotid artery revascularization (TCAR): S/p left TCAR on 09/19 and right TCAR on 10/01 Continue Brilinta, ASA, statin Anemia: Hgb 8.4 at presentation, at recent baseline. Plan for venofer and epogen today. Note that during previous admission PRBC transfusion was attempted however aborted due to patient reaction Chronic diastolic CHF (congestive heart failure): Appears euvolemic/ possibly mild hypovolemic given near syncopal event. c/w home meds as able. End-stage renal disease needing dialysis: Peritoneal dialysis catheter in place: Nephrology consult for PD orders Hx pulmonary embolism: Coumadin discontinued during recent admission due to ongoing anemia and needing to be on ASA and Brilinta given recent bilateral TCAR's Diabetes mellitus with neuropathy: Hgb A1c 7.7 09/2024. NovoLog per protocol while hospitalized DVT PROPHYLAXIS: SCDs due to recent issues with anemia pt/ot, cm to assist w/ dispo plan. Admission and Anticipated Discharge Date Admission Date: October 09, 2024 Subjective Patient was seen and examined at bedside. Patient was lying in bed, on room air, NAD, resting comfortably. Patient reports his orthostatic symptoms has gotten little better but still feels very weak. Await PT eval, possibly he will need rehab. Pt not confident in going home today. Physical Exam Physical Exam: GENERAL: Alert and oriented x3. NAD, on RA. HEENT: No pallor, no icterus. Pupils equal, round and reactive to light. Oral mucosa moist. NECK: No JVD, no neck masses. Rt TCAR incision appears healthy and healing well. some edema and ecchymoses noted in the area. HEART: S1 and S2 heard. Regular rate and rhythm. No murmur, no gallop. RESPIRATORY SYSTEM: Normal AP diameter. No accessory muscle use. No wheezing, no crackles. ABDOMEN: Soft, bowel sounds present, nontender, no distention. + PD catheter CENTRAL NERVOUS SYSTEM: No facial droop. Speech is clear. Obeys simple commands. Moves extremities. EXTREMITIES: No edema, no erythema seen. Results & Data Results & Data Vital Signs (Past 12 Hours) Vital Signs Temp Pulse Resp BP Pulse Ox O2 Del Method 10/11/24 11:13 36.7 C 69 18 119/59 L 97 Room Air 10/11/24 09:15 36.7 C 76 18 10/11/24 06:35 36.6 C 79 20 165/45 H 97 Room Air 10/11/24 03:26 36.8 C 67 16 126/61 94 Room Air
[2024-10-12 03:34] VITALS: RESP 18
[2024-10-12 08:49] LABS: Hematocrit (blood only) 27.6 % (42.0-52.0); Mean Corpuscular Hemoglobin 31.4 pg (25.0-34.0); Mean Corpuscular Hgb Conc 32.6 g/dL (32.0-36.0); Mean Corpuscular Volume 96.2 fL (80.0-100.0); Mean Platelet Volume 9.7 fL (9.4-12.4); Platelet Count 204 K/uL (130-400); RDW Coefficient of Variation 15.4 % (11.5-14.5); RDW Standard Deviation 53.7 fL (36.4-46.3); Red Blood Count 2.87 M/uL (4.70-6.10); White Blood Count 6.57 K/ul (4.8-10.8)
[2024-10-12 09:09] LABS: BUN Creatinine Ratio 10.9 (10-20); Calcium 8.9 mg/dl (8.6-10.3); Creatinine Clr Calc Pharmacy 13.7 ml/min; Potassium 3.5 mmol/L (3.5-5.1)
--- NOTE | 2024-10-12 09:41 | Nephrology Progress Note ---
Date of Service October 12, 2024 Assessment & Plan (1) End-stage renal disease needing dialysis: Plan: Maintained on CCP[employer] nightly. Switched to 1.5% delflex solution due to volume depletion on 2.5%. [employer] orders were placed in the EMR and HD RN notified. Outpatient Rx: 4 exchanges/night, 2 L fill volume, 1.5-2.5% Delflex, Fill 10 minutes/dwell 90 minutes/drain 20 minutes, EDW 95 kg. Bumex has been reduced to once daily. Medications are appropriate for kidney function. NaHCO3 stopped. If discharged home, resume home Rx using 1.5% Delfelx pending follow up in the home therapy clinic. (2) Anemia: Plan: Chronic, stable. Venofer 200 mg IV x 1 provided 10/10 Epogen 62011 units SC provided 10/11. (3) Diabetes mellitus with neuropathy: (4) HTN (hypertension): Plan: Amlodipine reduced to 5 mg daily. Hydralazine held. Carvedilol dose has also been reduced 25 mg -->12.5 mg BID. Encourage even to slightly positive fluid balance. Allow some permissive hypertension due to continued orthostatic drops in BP. (5) Near syncope: Plan: BP continues to drop when standing. Overall symptoms have improved since admission. PT consultation pending. Advised slow transitions. Compression stocking use. Volume status improved. Admission and Anticipated Discharge Date Admission Date: October 09, 2024 Subjective No acute events overnight. BP continues to drop when standing but Herb denies any lightheadedness. He feels better overall. He states that he was walking in his hospital room this morning and felt that this strength had improved. He is tolerating PD without complications. Effluent remains clear. No abdominal pain. Review of Systems Review of Systems: All systems reviewed & are unremarkable except as noted in HPI & below Physical Exam Constitutional: WD/WN, vitals as above no acute distress Eyes: + anicteric sclerae Respiratory: Auscultation: lungs clear to auscultation bilaterally Cardiovascular: Rate/Rhythm: regular rate and regular rhythm Heart Sounds: normal S1 and normal S2 Extremities: + AV fistula (left BC AVF with thrill and bruit); no edema Gastrointestinal (Abdomen): Inspection/Auscultation: abdomen normal to inspection Percussion/Palpation: abdomen soft; abdomen nontender Skin: no rashes, warm and dry Neurologic: no focal motor deficits Psychiatric: Orientation: alert and oriented x 3 Results & Data Vital Signs (Past 12 Hours) Vital Signs Temp Pulse Resp BP Pulse Ox O2 Del Method 10/12/24 08:22 36.7 C 74 18 10/12/24 08:22 36.7 C 74 18 189/69 H 96 Room Air 10/12/24 03:33 36.5 C 68 18 146/41 H 90 Room Air 10/11/24 23:14 36.9 C 76 16 157/71 H 95 Room Air Laboratory Results Laboratory Results - last 24 hr 10/11/24 10/11/24 10/11/24 11:33 16:25 20:49 WBC RBC Hgb Hct MCV MCH MCHC RDW Std Deviation RDW Coeff of Severiano Plt Count MPV Sodium Potassium Chloride Carbon Dioxide Anion Gap BUN Creatinine Est Cr Clr Drug Dosing eGFR BUN/Creatinine Ratio Glucose POC Glucose 153 H 113 H 202 H Calcium 10/12/24 10/12/24 07:09 07:21 WBC 6.57 RBC 2.87 L Hgb 9.0 L Hct 27.6 L MCV 96.2 MCH 31.4 MCHC 32.6 RDW Std Deviation 53.7 H RDW Coeff of Severiano 15.4 H Plt Count 204 MPV 9.7 Sodium 138 Potassium 3.5 Chloride 102 Carbon Dioxide 27 Anion Gap 9 BUN 62 H Creatinine 5.68 H* D Est Cr Clr Drug Dosing 13.7 eGFR 10.07 BUN/Creatinine Ratio 10.9 Glucose 147 H POC Glucose 170 H Calcium 8.9 PG Care Time/CCT Total # of Minutes Spent Total Time Spent with Patient: Total time spent is greater than 50% in coordination of care (as documented) at patient's floor/unit and/or counseling patient: Coding Level of Care Code 83241 SUB INP/OBS CARE 3/50MIN Diagnoses End-stage renal disease needing dialysis N18.6; Z99.2 Anemia D64.9 Diabetes mellitus with neuropathy E11.40 HTN (hypertension) I10 Hypertension type: unspecified Near syncope R55 (4) HTN (hypertension) Hypertension type: unspecified Qualified Code(s): I10 - Essential (primary) hypertension
--- NOTE | 2024-10-12 11:57 | Discharge Summary ---
Date of Service October 12, 2024 Admission HPI Per Admitting Provider 69-year-old male with past medical history significant for end-stage renal disease on peritoneal dialysis, hypertension, hyperlipidemia, history of PE, type 2 diabetes, peripheral vascular disease, CHF, right occular stroke, and other problems below who presents to the ED for evaluation of lightheadedness and near syncope. Patient with complicated recent history as summarized below: 09/06-09/09: Admitted for left vision loss and strokelike symptoms. Patient was found to have a central retinal artery occlusion of the left eye. CTA neck showed high-grade stenosis of the bilateral internal and external carotid jesus manuel jose rafael. Patient was started on Plavix and discharged home with plans to return for TCAR. 09/19: s/p left TCAR, discharged home the following day. Plavix changed to Brillinta. 09/26-10/07: Presented for right visual loss. Found to have elevated troponin on presentation. Ultimately felt to be due to type II NH/demand ischemia. Underwent right TCAR on 10/01. Had issues with anemia and PRBC transfusions were attempted however aborted due to reactions. Due to ongoing anemia, it was decided to discontinue Coumadin and for patient to continue on ASA and Brilinta. Patient also experienced issues with orthostasis and hydralazine was reduced to 50 mg TID (from 100mg TID). Patient reports he had been feeling well up until this morning. States that he woke up feeling in his usual state of health. He then ate some breakfast and took his medications. He had gone to the bathroom and reports that whenever he was walking back, he started to feel very lightheaded and everything started to go dark. Patient reports he was able to sit down and did not fully lose consciousness however reports he was very close. He reports a brief episode of right-sided chest pain that he describes as a dull ache. Denies any associated shortness of breath or palpitations. No fevers or chills. Continues to perform peritoneal dialysis on a nightly basis without any issue. No abdominal pain, nausea, vomiting, diarrhea. Denies urinary symptoms. In the ED, initial BP 112/54. Patient was given 500 cc NSS with improvement. Labs unremarkable/at recent baseline. Admission Exam Per Admitting Provider Constitutional: WD/WN, vitals as above no acute distress ENMT: external ear and nose normal, oropharynx normal Neck: right sided incision from previous TCAR with edema and ecchymosis Respiratory: normal respiratory effort, lungs clear to auscultation Cardiovascular: Rate/Rhythm: regular rate and regular rhythm Vessels: normal peripheral pulses Extremities: no edema Gastrointestinal (Abdomen): normal bowel sounds, soft, nontender, no hepatosplenomegaly + PD catheter - no surrounding erythema or drainage Skin: no rashes, warm and dry Neurologic: no focal motor deficits Psychiatric: A+Ox3, euthymic affect Principal Diagnosis Near syncope Orthostatic hypotension Discharge Exam GENERAL: Alert and oriented x3. NAD, on RA. HEENT: No pallor, no icterus. Pupils equal, round and reactive to light. Oral mucosa moist. NECK: No JVD, no neck masses. Rt TCAR incision appears healthy and healing well. some edema and ecchymoses noted in the area. HEART: S1 and S2 heard. Regular rate and rhythm. No murmur, no gallop. RESPIRATORY SYSTEM: Normal AP diameter. No accessory muscle use. No wheezing, no crackles. ABDOMEN: Soft, bowel sounds present, nontender, no distention. + PD catheter CENTRAL NERVOUS SYSTEM: No facial droop. Speech is clear. Obeys simple commands. Moves extremities. EXTREMITIES: No edema, no erythema seen. Discharge Data Allergies Allergy/AdvReac Type Severity Reaction Status Date / Time atorvastatin AdvReac Intermediate Muscle Verified 10/09/24 16:33 aches bupropion [From Wellbutrin] AdvReac Intermediate Vivid Verified 10/09/24 16:33 dreams, hallucinations [id number] Reductase AdvReac Intermediate Body aches Verified 10/09/24 16:33 Inhibitor [Omnmlsb-Iar-Ifk Reductase Inhibitor] Consultations 10/09/24 16:52 ED Decision to Admit Stat 10/09/24 20:24 Consult Nephrology Routine Hospital Course (1) Near syncope: Plan 69-year-old male with past medical history significant for end-stage renal disease on peritoneal dialysis, hypertension, hyperlipidemia, history of PE, type 2 diabetes, peripheral vascular disease, CHF, right occular stroke, and other problems below who presents to the ED for evaluation of lightheadedness and near syncope. Patient with complicated recent history as summarized below: 09/06-09/09: Admitted for left vision loss and strokelike symptoms. Patient was found to have a central retinal artery occlusion of the left eye. CTA neck showed high-grade stenosis of the bilateral internal and external carotid arteries. Patient was started on Plavix and discharged home with plans to return for TCAR. 09/19: s/p left TCAR, discharged home the following day. Plavix changed to Brilinta. 09/26-10/07: Presented for right visual loss. Found to have elevated troponin on presentation. Ultimately felt to be due to type II NH/demand ischemia. Underwent right TCAR on 10/01. Had issues with anemia and PRBC transfusions were attempted however aborted due to reactions. Due to ongoing anemia, it was decided to discontinue Coumadin and for patient to continue on ASA and Brilinta. Patient also experienced issues with orthostasis and hydralazine was reduced to 50 mg TID (from 100mg TID). He was managed for the following: Near syncope: Orthostatic hypotension Note that patient is on several medications to cause orthostasis: 4 antihypertensives (carvedilol, amlodipine, hydralazine, isosorbide), bumex, finasteride, flomax, gabapentin, sertraline D/w nephro 10/10, will c/w low dose amlod, decreased bumex dose, ok w/ holding hydralazine for now and decreased dose of coreg. likely volume mediated, plan for changes w/ dialysis. b/l thigh high compression stockings, slow transition during change in position Fall precautions. Pt reports marked improvement w/ dizziness w/ change in position but still orthostatic positive. Patient does not want to go to rehab, he wants to go home. Central artery occlusion of retina: H/O transcarotid artery revascularization (TCAR): S/p left TCAR on 09/19 and right TCAR on 10/01 Continue Brilinta, ASA, statin Anemia: Hgb 8.4 at presentation, at recent baseline. Plan for venofer and epogen today. Note that during previous admission PRBC transfusion was attempted however aborted due to patient reaction Chronic diastolic CHF (congestive heart failure): Appears euvolemic/ possibly mild hypovolemic given near syncopal event. c/w home meds as able. End-stage renal disease needing dialysis: Peritoneal dialysis catheter in place: Nephrology consult for PD orders Hx pulmonary embolism: Coumadin discontinued during recent admission due to ongoing anemia and needing to be on ASA and Brilinta given recent bilateral TCAR's Diabetes mellitus with neuropathy: Hgb A1c 7.7 09/2024. NovoLog per protocol while hospitalized DVT PROPHYLAXIS: SCDs due to recent issues with anemia pt/ot, cm to assist w/ dispo plan. Patient is being discharged to home with family support with following instructions at the point of discharge: Follow-up with your primary care physician within a week time and likely you will need labs CBC/CMP/magnesium/phosphorus. As discussed at the bedside, perform slow transition during change in position from lying to sitting and sitting to standing position. Your dialysis protocol and your home medication has been revised to help osvaldo some of the symptoms of orthostatic hypotension. Per nephrology, resume home Rx using 1.5% Delfelx pending follow up in the home therapy clinic. Amlodipine reduced to once daily, Bumex reduced to once daily, Coreg reduced to 12.5 Mg twice daily, hydralazine held at discharge. Continue to wear compression stockings throughout the day. Follow-up with nephrology closely in 1 to 2 weeks time upon discharge. Take your medications as prescribed. Please make sure that you are able to get your medications today by calling your pharmacy before you leave the hospital so that your treatment continuity is not broken. Home Health Attestation I certify that this patient is under my care and that I, or a physicians ass istant working with me, had a face to-face encounter that meets the home health [id number] encounter requirements with this patient. The encounter with the patient was in whole, or in part, for the following medical condition, which is the primary reason for home health care (list medical condition): Orthostasis I certify that, based on my findings, the following services are medically necessary home health services: My clinical findings support the need for the above services because: Caregiver Instruct Med Mgmt, Safety, Disease Process, Signs to Report Daily Weights Home Safety Assessment Hydration / Nutrition Medication Compliance and Monitoring Effective of New Medications Medication Compliance OT Assess ADL Status and Restore Function w ADLs PT Assessment for Endurance / Balance / Strength PT Eval for Safety and Mobility PT Eval for Safety, Gait Training, Assistive Devices PT Gait and Balance Training, Strengthening and Safety Safety Skilled Nsg Assessment Skilled Nsg Assess and Instruct on Diet Skilled Nsg Instruction New Medications Skilled Nsg Assess Pt Illness, Disease and Sx Monitoring S/S to Report to Provider Teach on Disease Management and Interventions Vital Signs Further, I certify that my clinical findings support that this patient is homebound (i.e. absences from home require considerable and taxing effort and are for medical reasons or zoroastrian services or infrequently or of short duration when for other reasons) because: Transportation Assistance/Unable to Leave Home Unassisted Certification for Home Health Services: Based on the above findings, I certify that this patient is confined to the home and needs intermittent assisted care, physical therapy and/or speech therapy or continues to need occupational therapy. The patient is under my care, and I have initiated the establishment of the plan of care. This patient will be followed by a physician who will periodically review the plan of care. Total Time Total Time Spent Total Time Spent (In Minutes): 35 Discharge Plan Discharge Items Patient Disposition: Home - Home Health Services Reason For Visit: ORTHOSTASIS Discharge Diagnosis: Near syncope Orthostatic hypotension Condition on Discharge: Fair Activity: Per Instructions section Activity Comment: Slow transition during change in position as discussed. Non-emergency contact: Primary Care Provider Call non-emergency contact if: you have any medication questions and your symptoms worsen Follow-up/Referrals: Asaf Younger MD [Primary Care Provider] - Diet: Carb Consistent or DM2 and Dialysis Renal Addtl Attending Provider Instructions: Follow-up with your primary care physician within a week time and likely you will need labs CBC/CMP/magnesium/phosphorus. As discussed at the bedside, perform slow transition during change in position from lying to sitting and sitting to standing position. Your dialysis protocol and your home medication has been revised to help osvaldo some of the symptoms of orthostatic hypotension. Per nephrology, resume home Rx using 1.5% Delfelx pending follow up in the home therapy clinic. Amlodipine reduced to once daily, Bumex reduced to once daily, Coreg reduced to 12.5 Mg twice daily, hydralazine held at discharge. Continue to wear compression stockings throughout the day. Follow-up with nephrology closely in 1 to 2 weeks time upon discharge. Take your medications as prescribed. Please make sure that you are able to get your medications today by calling your pharmacy before you leave the hospital so that your treatment continuity is not broken. Pending Studies at Discharge: No Stand-Alone Forms: My [facility], Smoking Cessation Medications and DC Order Prescriptions: Continued finasteride 5 mg tablet 5 mg PO QAM Qty: 90 3RF gabapentin 100 mg capsule 100 mg PO TID sertraline 100 mg tablet 100 mg PO PM Rx Instructions: TOTAL DOSE 150 MG--TAKES WITH 50 MG TAB. rosuvastatin 20 mg tablet 20 mg PO QAM sevelamer HCl 800 mg tablet 800 mg PO TID Rx Instructions: must administer with a meal/food polyethylene glycol 3350 [Miralax] 17 gram/dose powder 17 g PO Q OTHER DAY fenofibrate micronized 43 mg capsule 43 mg PO PM sertraline 50 mg tablet 50 mg PO PM Rx Instructions: TOTAL DOSE 150 MG--TAKES WITH 100 MG TAB. insulin aspart U-100 [Novolog FlexPen U-100 Insulin] 100 unit/mL (3 mL) insulin pen 3 unit SUBCUT BID insulin glargine [Lantus Solostar U-100 Insulin] 100 unit/mL (3 mL) insulin pen 12 unit SUBCUT HS Retacrit 40,000 unit/mL solution 40,000 unit subcut MONTHLY aspirin 81 mg Tablet,Delayed Release (Dr/Ec) 81 mg PO PM isosorbide mononitrate 60 mg tablet extended release 24 hr 60 mg PO QAM tamsulosin 0.4 mg capsule 0.4 mg PO QAM Brilinta 90 mg tablet 90 mg PO BID Qty: 60 11RF glipizide 10 mg tablet extended release 24hr 10 mg PO QAM Changed amlodipine [Norvasc] 5 mg tablet 5 mg PO QAM Qty: 30 3RF carvedilol [Coreg] 25 mg tablet 12.5 mg PO BID Qty: 15 0RF bumetanide 2 mg tablet 4 mg PO DAILY Qty: 30 0RF Discontinued warfarin 3 mg tablet 1.5 - 3 mg PO UD Hold Instructions: Resume on 10/11/24. discuss with your health care provider if/when to resume coumadin Rx Instructions: ON HOLD take 1 tablet by mouth tuesday, tuesday, Tuesday, take 1/2 tablet all other days sodium bicarbonate 650 mg tablet 650 mg PO BID hydralazine 50 mg Tablet 50 mg PO TID Qty: 60 0RF Discharge Orders: Discharge Order (Routine); Ordered 10/12/24 Ordered By: Troy Alonzo Admission Data Admit Date/Time: 10/09/24 17:13 Attending Provider: Troy Alonzo Admit Provider: Fritz Valenzuela Primary Care Provider: Asaf Younger Other Providers: Fritz Valenzuela; Federico Mills
[2024-10-12 12:15] VITALS: BP 109/59; PULSE 70; TEMP 98.4; O2SAT 97
--- NOTE | 2024-10-13 14:37 | Electrocardiogram Report ---
Test Reason : Blood Pressure : */* mmHG Vent. Rate : 76 BPM Atrial Rate : 76 BPM P-R Int : 220 ms QRS Dur : 136 ms QT Int : 442 ms P-R-T Axes : 35 25 147 degrees QTcB Int : 497 ms Sinus rhythm with 1st degree A-V block Left ventricular hypertrophy with QRS widening and repolarization abnormality ( ) Abnormal ECG When compared with ECG of 09-Oct-2024 14:36, Criteria for Inferior infarct are no longer Present Confirmed by Baylee Payne (Jose) on 10/13/2024 2:37:24 PM Referred By: REFERRED SELF Confirmed By: Baylee Payne
== END 2024-10-12 13:30 | disposition home health service (06) | DRG 312 ==
LOC: ED 14:25 → 2E 17:13 → SUATTDRO 17:13 → 2E 19:33